=== PATIENT | male | born 1940 | race Caucasian/White ===

== ENCOUNTER 2019-07-12 17:27 | Inpatient (IN) | payer OTHER, MEDICARE ==
[~2019-07-12] VITALS: Ht 175.2 cm; Wt 89.5 kg
[2019-07-12] MEDS ORDERED: NS IV 1000 ML 1,000 ML IV SCH (17:45)
[2019-07-12 17:50] LABS: BASOPHILS # (AUTO) 0.2 10^3/uL (0.0-0.1); BASOPHILS % (AUTO) 2 % (0-10); EOSINOPHILS # (AUTO) 0.2 10^3/uL (0.0-0.3); EOSINOPHILS % (AUTO) 2 % (0-10); HEMATOCRIT 42 % (40-54); HEMOGLOBIN 14.6 G/DL (13.3-17.7); LYMPHOCYTES # (AUTO) 1.6 X 10^3 (1.0-4.0); LYMPHOCYTES % (AUTO) 16 % (12-44); MEAN CORPUSCULAR HEMOGLOBIN 31 PG (25-34); MEAN CORPUSCULAR HGB CONC 34 G/DL (32-36); MEAN CORPUSCULAR VOLUME 91 FL (80-99); MEAN PLATELET VOLUME 9.7 FL (7.4-10.4); MONOCYTES % (AUTO) 10 % (0-12); NEUTROPHILS # (AUTO) 7.2 X 10^3 (1.8-7.8); NEUTROPHILS % (AUTO) 70 % (42-75); PLATELET COUNT 281 10^3/uL (130-400); RED CELL DISTRIBUTION WIDTH 14.5 % (10.0-14.5); WHITE BLOOD COUNT 10.2 10^3/uL (4.3-11.0)
[2019-07-12 18:04] LABS: ALANINE AMINOTRANSFERASE 15 U/L (0-55); ALBUMIN 4.4 GM/DL (3.2-4.5); ALKALINE PHOSPHATASE 90 U/L (40-136); BILIRUBIN,TOTAL 0.4 MG/DL (0.1-1.0); BUN/CREATININE RATIO 27; CALCIUM 9.5 MG/DL (8.5-10.1); CARBON DIOXIDE 24 MMOL/L (21-32); CHLORIDE 107 MMOL/L (98-107); CREATININE SERUM 1.16 MG/DL (0.60-1.30); GFR ESTIMATED > 60; GLUCOSE 110 MG/DL (70-105); POTASSIUM 3.7 MMOL/L (3.6-5.0); SODIUM 142 MMOL/L (135-145); TOTAL PROTEIN 7.4 GM/DL (6.4-8.2)
--- NOTE | 2019-07-12 18:21 | Diagnostic Imaging Report ---
INDICATION: Increasing weakness. TIME OF EXAM: 05:56 p.m. COMPARISON: No prior studies are available for comparison. FINDINGS: Changes of median sternotomy are noted. The heart is mildly enlarged. Lungs are clear. No infiltrate or failure is seen. There is no effusion or pneumothorax. IMPRESSION: No acute cardiopulmonary process is detected. Dictated by: Dictated on workstation # [id number]
--- NOTE | 2019-07-12 18:22 | NUR ---
DAUGHTER AND PATIENT REPORT THAT HE WAS SEEN BY HIS DR ON THURSDAY AND DID NOT ADMIT AT THAT TIME.
--- NOTE | 2019-07-12 18:33 | Diagnostic Imaging Report ---
INDICATION: Pelvic and right hip pain AP view of the pelvis is obtained with coned AP and frog-leg views of the right hip. There are mild degenerative changes in the visualized lower lumbar spine and both hip joints. There is no evidence of an acute fracture or malalignment. No abnormal lytic or sclerotic focus is identified. IMPRESSION: No evidence of acute abnormality. Dictated by: Dictated on workstation # [id number]
--- NOTE | 2019-07-12 18:40 | ED General ---
General Chief Complaint: Neurological Problems Stated Complaint: WEAKNESS Nursing Triage Note: TO ROOM 07 VIA WITH COMPLAINTS OF INCREASED WEAKNESS X3 WEEKS. STATES HE WAS SEEN IN [place] LAST WEEK AND SENT HOME. WAS SEEN BY HOME HEALTH PT TODAY WHO CONTACTED DR REEDER ABOUT POSSIBLE ASSESSMENT IN ER AND ADMISSION. PT STATES HE IS NO LONGER ABLE TO WALK. PT DR'S IN [place]. Nursing Sepsis Screen: No Definite Risk Source of Information: Patient Exam Limitations: No Limitations History of Present Illness Date Seen by Provider: Jul 12, 2019 Time Seen by Provider: 17:45 Initial Comments 78-year-old male who presents to the emergency room with complaints of inc reasing weakness for the past 3 weeks. He reports that he was seen and evaluated at [facility] in [place] a fall onto his right hip and has not been able to walk since the fall. He was seen by a family friend who is a physical therapist and she recommended trying to get him to inpatient rehabilitation at [facility] but Dr. Reeder wanted him to be evaluated in the emergency room and sent him here. The patient reports that he is unable to walk at home and his grandson has been lifting him from bed to wheelchair. He is alert and oriented complains of right hip pain after fall. Denies other injuries. He was unable to transfer from car to wheelchair. Associated Systoms: Weakness Allergies and Home Medications Allergies Coded Allergies: codeine (Verified Adverse Reaction, Severe, VOMITING, 07/12/19) Uncoded Allergies: TAPE (Allergy, Severe, BLISTERS, 07/12/19) Patient Home Medication List Home Medication List Reviewed: Yes Review of Systems Review of Systems Constitutional: see HPI; No chills, No fever Musculoskeletal: see HPI, joint pain (right hip pain) All Other Systems Reviewed Negative Unless Noted: Yes Past Erpqtni-Eophcz-Hawnuh Hx Patient Social History Alcohol Use: Past History Recreational Drug Use: No Smoking Status: Former Smoker Recent Foreign Travel: No Contact w/Someone Who Travel: No Recent Infectious Disease Expo: No Recent Hopitalizations: No Seasonal Allergies Seasonal Allergies: No Past Medical History Appendectomy, CABG, Gallbladder, Orthopedic Respiratory: No Cardiac: Yes (X6 STENTS TOTAL) Heart Attack, Hypertension Genitourinary: No Gastrointestinal: No Musculoskeletal: No Endocrine: Yes (HYPOGLYCEMIA LAST WEEK ) HEENT: No Cancer: No Psychosocial: No Integumentary: No Physical Exam Vital Signs Vital Signs - First Documented 07/12/19 17:28 Temp 36.3 Pulse 78 Resp 16 B/P (MAP) 131/88 (102) Pulse Ox 95 O2 Delivery Room Air Capillary Refill : Less Than 3 Seconds Height, Weight, BMI Height: '" Weight: lbs. oz. kg; 29.00 BMI Method: General Appearance: No Apparent Distress, WD/WN Eyes: Bilateral Eye PERRL, Bilateral Eye EOMI HEENT: PERRL/EOMI, TMs Normal, Normal ENT Inspection, Pharynx Normal Respiratory: Chest Non Tender, Lungs Clear, Normal Breath Sounds, No Accessory Muscle Use, No Respiratory Distress Cardiovascular: Regular Rate, Rhythm, No Edema, No Gallop, No JVD, No Murmur, Normal Peripheral Pulses Extremity: Normal Capillary Refill Neurologic/Psychiatric: Alert, Oriented x3, Normal Mood/Affect, Motor Weakness Skin: Normal Color, Warm/Dry Progress/Results/Core Measures Suspected Sepsis Recent Fever Within 48 Hours: No Infection Criteria Present: None New/Unexplained Altered Menta: No Sepsis Screen: No Definite Risk SIRS Temperature: Pulse: 78 Respiratory Rate: 16 Laboratory Tests 07/12/19 17:38: White Blood Count 10.2 Blood Pressure 131 /88 Mean: 102 Laboratory Tests 07/12/19 17:38: Creatinine 1.16, Platelet Count 281, Total Bilirubin 0.4 Results/Orders Lab Results Laboratory Tests Test 07/12/19 17:38 Range/Units White Blood Count 10.2 4.3-11.0 10^3/uL Red Blood Count 4.66 4.35-5.85 10^6/uL Hemoglobin 14.6 13.3-17.7 G/DL Hematocrit 42 40-54 % Mean Corpuscular Volume 91 80-99 FL Mean Corpuscular Hemoglobin 31 25-34 PG Mean Corpuscular Hemoglobin Concent 34 32-36 G/DL Red Cell Distribution Width 14.5 10.0-14.5 % Platelet Count 281 130-400 10^3/uL Mean Platelet Volume 9.7 7.4-10.4 FL Neutrophils (%) (Auto) 70 42-75 % Lymphocytes (%) (Auto) 16 12-44 % Monocytes (%) (Auto) 10 0-12 % Eosinophils (%) (Auto) 2 0-10 % Basophils (%) (Auto) 2 0-10 % Neutrophils # (Auto) 7.2 1.8-7.8 X 10^3 Lymphocytes # (Auto) 1.6 1.0-4.0 X 10^3 Monocytes # (Auto) 1.0 0.0-1.0 X 10^3 Eosinophils # (Auto) 0.2 0.0-0.3 10^3/uL Basophils # (Auto) 0.2 H 0.0-0.1 10^3/uL Sodium Level 142 135-145 MMOL/L Potassium Level 3.7 3.6-5.0 MMOL/L Chloride Level 107 98-107 MMOL/L Carbon Dioxide Level 24 21-32 MMOL/L Anion Gap 11 5-14 MMOL/L Blood Urea Nitrogen 31 H 7-18 MG/DL Creatinine 1.16 0.60-1.30 MG/DL Estimat Glomerular Filtration Rate > 60 BUN/Creatinine Ratio 27 Glucose Level 110 H 70-105 MG/DL Calcium Level 9.5 8.5-10.1 MG/DL Corrected Calcium 9.2 8.5-10.1 MG/DL Total Bilirubin 0.4 0.1-1.0 MG/DL Aspartate Amino Transf (AST/SGOT) 18 5-34 U/L Alanine Aminotransferase (ALT/SGPT) 15 0-55 U/L Alkaline Phosphatase 90 40-136 U/L Total Protein 7.4 6.4-8.2 GM/DL Albumin 4.4 3.2-4.5 GM/DL My Orders Orders - PETER NICOLE Comprehensive Metabolic Panel (07/12/19 17:43) Ed Iv/Invasive Line Start (07/12/19 17:43) Cbc With Automated Diff (07/12/19 17:43) Chest 1 View, Ap/Pa Only (07/12/19 17:43) Ns Iv 1000 Ml (Sodium Chloride 0.9%) (07/12/19 17:45) Pelvis With Right Hip 2-3views (07/12/19 17:50) Ekg Tracing (07/12/19 17:50) Vital Signs/I&O 07/12/19 07/12/19 07/12/19 17:28 19:53 20:22 Temp 36.3 36.9 36.4 Pulse 78 57 58 Resp 16 18 20 B/P (MAP) 131/88 (102) 129/70 (102) 152/67 Pulse Ox 95 98 98 O2 Delivery Room Air Room Air Room Air Capillary Refill : Less Than 3 Seconds Blood Pressure Mean: 102 Departure Communication (Admissions) Time/Spoke to Admitting Phy: 19:[address] Key and he agrees to accept the patient to his services. Impression Primary Impression: Generalized weakness Disposition: HOME, SELF-CARE Condition: Stable/Unchanged Admissions Decision to Admit Reason: Admit from ER (General) Decision to Admit/Date: Jul 12, 2019 Time/Decision to Admit Time: 19:10 Departure-Patient Inst. Referrals: NARGIS ARIZMENDI DO (PCP/Family) Primary Care Physician PETER NICOLE Jul 12, 2019 18:40
--- NOTE | 2019-07-12 19:55 | NUR ---
ALEXANDREA MANN admitted to room 431-1, with an admitting diagnosis of Generalized Weakness, on 07/12/19 from ER via bed, accompanied by daughter and ED staff.ALEXANDREA MANN introduced to surroundings, call light, bed controls, phone, TV, temperature control, lights, meal times, smoking policy, visitor policy, side rail policy, bathrooms and showers. Patient Rights given to patient in the handbook. ALEXANDREA MANN verbalizes understanding that [facility] is not responsible for the loss or damage to any personal effects or valuables that are kept in the patients posession during their hospitalization.
[2019-07-12 20:12] VITALS: BP 129/70
[2019-07-12 20:22] VITALS: BP 152/67
[2019-07-12] MEDS ORDERED: CATHETER FLUSH 10 ML SYR IV PRN (20:30)
--- NOTE | 2019-07-12 21:30 | NUR ---
Dr. Key notified of pt rating pain at 10:10 and of c/o of not voiding all day (bladder scan showed only 47 mls residual). New order rec for NS at 100 mls/hr & Lortab 5/325 mg po q6hr prn pain.
[2019-07-12] MEDS: NS IV 1000 ML 1,000 ML IV SCH (21:34)
[2019-07-12] MEDS: ACETAMINOPHEN 500 MG TAB (TYLENOL) PO PRN (21:35)
[2019-07-12] MEDS: CATHETER FLUSH 10 ML SYR IV SCH (21:45)
[2019-07-12 23:50] VITALS: BP 132/61
[2019-07-13 01:48] LABS: BILIRUBIN,URINE NEGATIVE (NEGATIVE); CLARITY,URINE CLEAR; COLOR,URINE YELLOW; GLUCOSE, URINE (UA) NEGATIVE (NEGATIVE); KETONES,URINE NEGATIVE (NEGATIVE); LEUKOCYTE ESTERASE ,URINE 1+ (NEGATIVE); NITRITE,URINE NEGATIVE (NEGATIVE); PH,URINE 6 (5-9); PROTEIN,URINE NEGATIVE (NEGATIVE); UROBILINOGEN,URINE NORMAL (NORMAL)
[2019-07-13 01:58] LABS: BACTERIA,URINE FEW /HPF; SQUAMOUS EPITHELIAL CELL,UR RARE /HPF; WBC,URINE 0-2 /HPF
[2019-07-13] MEDS: HYDROcodone/APAP 5 MG/325 MG (LORTAB) TAB PO PRN ×2 (02:08→08:26)
[2019-07-13 04:05] VITALS: BP 144/66
[2019-07-13] MEDS: CATHETER FLUSH 10 ML SYR IV SCH ×3 (06:46→22:17)
[2019-07-13] MEDS: NS IV 1000 ML 1,000 ML IV SCH ×2 (06:52→17:50)
[2019-07-13 08:00] VITALS: BP 141/64
--- NOTE | 2019-07-13 09:07 | NUR ---
Initial visit with pt's family/caregiver, Rakesh. The pt has been living with Rakesh and his . Rakesh said that since the pt's admission to [place], he has become increasingly weak. Rakesh shared that his work until 5-6 pm most days and so the pt has been at home alone. Rakesh shared his concerns while noticing that the pt "gradually became so weak he could not walk." Rakesh expressed relief and appreciation for this hospital stay, and hopes the pt can regain some quality of life. Bus Info Consultant support welcomed.
[2019-07-13] MEDS ORDERED: TOLTA4 PO (10:05)
[2019-07-13] MEDS ORDERED: NAPR-915 PO (10:05)
[2019-07-13] MEDS ORDERED: RANI-613 PO (10:05)
[2019-07-13] MEDS ORDERED: CETI10TA17 PO (10:05)
[2019-07-13] MEDS ORDERED: LOSA1TAB20 PO (10:05)
[2019-07-13] MEDS ORDERED: ACET-2650 PO (10:05)
[2019-07-13] MEDS ORDERED: PANT40TA2 PO (10:05)
[2019-07-13] MEDS ORDERED: DOCU240C24 PO (10:05)
[2019-07-13] MEDS ORDERED: TERA5CAP3 PO (10:05)
[2019-07-13] MEDS ORDERED: ASPI-983 PO (10:05)
[2019-07-13] MEDS ORDERED: MAGN420T PO (10:05)
[2019-07-13] MEDS ORDERED: DONE5TAB30 PO (10:05)
[2019-07-13] MEDS ORDERED: SIME125T PO (10:05)
[2019-07-13] MEDS ORDERED: CLOP75TA69 PO (10:05)
[2019-07-13] MEDS ORDERED: AMLO10TA7 PO (10:05)
[2019-07-13] MEDS ORDERED: HYDR-3812 PO (10:08)
--- NOTE | 2019-07-13 10:13 | NUR ---
PATIENT STATES HE IS UNSURE OF HIS MEDICATIONS. HE FILLS HIS PILL [employer] WITH HIS BOTTLES BUT HE DOES NOT KNOW THEM BY NAME. A FAMILY MEMBER BROUGHT IN A DETAILED LIST AND THE PATIENT STATES IT IS UP TO DATE. I UPDATED THE MED REC WITH THAT LIST AT THIS TIME. I REVIEWED THE OTC MEDICATION WELL THE TOLTERODINE THAT WAS RECENTLY FILLED ACCORDING TO THE EXT MED HX. THE OTHER PRESCRIPTION MEDICATIONS MUST COME FROM THE [place]. I HAVE REQUESTED THOSE RECORDS FROM THE [facility] AND WILL REVIEW THEM ON THE MED REC WHEN IT IS RECEIVED. IN ADDITION TO THE LIST, THE PATIENT FILLED HYDROCODONE 5-325MG #28 1 Q6H PRN 07-11-19 AT [facility]. I CALLED THEM AND VERIFIED IT WAS PICKED UP. I ADDED IT TO THE MED REC AT THIS TIME. [facility] HAS NOT FILLED ANY OTHER PRESCRIPTIONS FOR THE PATIENT. [facility] SHOWS THE 07-11-19 FILL OF HYDROCODONE AT [facility] #5 TABS FILLED AT [facility] 07-01-19. PRIOR TO THAT TRAMADOL 50MG #60 FOR A 15 DAY SUPPLY [facility].
[2019-07-13] MEDS: ACETAMINOPHEN 500 MG TAB (TYLENOL) PO PRN (10:26)
--- NOTE | 2019-07-13 11:24 | Physical Therapy Evaluation ---
PT Evaluation-General Medical Diagnosis Admission Date Jul 12, 2019 at 19:20 Medical Diagnosis: weakness Onset Date: Jul 12, 2019 Therapy Diagnosis Therapy Diagnosis: impaired mobility, strength, endurance, balance Precautions Precautions/Isolations: Standard Precautions Weight Bear Status Right Lower Extremity: Right Weight Bearing/Tolerated Left Lower Extremity: Left Weight Bearing/Tolerated Referral Physician: Yesi Reason for Referral: Evaluation/Treatment Medical History Additional Medical History Past Medical History Appendectomy, CABG, Gallbladder, Orthopedic Respiratory: No Cardiac: Yes (X6 STENTS TOTAL) Heart Attack, Hypertension Genitourinary: No Gastrointestinal: No Musculoskeletal: No Endocrine: Yes (HYPOGLYCEMIA LAST WEEK ) HEENT: No Cancer: No Psychosocial: No Integumentary: No Reviewed History: Yes Social History Home: Single Level Current Living Status: granddaughter Entry Into Home: Stairs With Railing PT Steps Into Home: 2 Prior/Core FIM Prior Level of Function Therapy Code Descriptions/Definitions Functional Boyle Measure: 0=Not Assessed/NA 4=Minimal Assistance 1=Total Assistance 5=Supervision or Setup 2=Maximal Assistance 6=Modified Boyle 3=Moderate Assistance 7=Complete Boyle Therapy Quality Codes: 6 Independent with activity with or without an assistive device 5 Patient requires set up or clean up by helper. Patient completes activity by themselves 4 Supervision or touching assist (CGA). Ethel provide cues , steadying aldo t 3 The helper provides less than half the effort to complete the activity 2 The helper provides more than half the effort to complete the activity 1 Dependent. The helper does all the effort to complete an activity 7 Patient refused to complete or attempt activity 9 The patient did not perform the activity before the current illness or injury 88 Not attempted due to Medical conditions or safety concerns Functional Abilities and Goals: Independent: Patient completed the activities by him/herself, with or without an assistive device, with no assistance from a helper. Needed Some Help: Patient needed partial assistance from another person to complete activities. Dependent: A helper completed the activities for the patient. Unknown: Not Applicable: Patient states he has not been able to stand and ambulate for several weeks but before that he was ambulating with a 4-wheeled walker. PT Evaluation-Current Subjective Patient in bed pre tx, agrees to PT, has 10/10 pain in both legs, worse in the right leg. Pt/Family Goals "to get stronger" Objective Patient Orientation: Person, Confused, Place, Situation ROM/Strength ROM Lower Extremities WNL Strength Lower Extremities 2/5 gross bilateral lower extremities Sensory Vision: Functional Hearing: Functional Sensation Right Lower Extremit: Impaired Sensation Left Lower Extremity: Impaired Sensation Lower Extremities Patient has intact light touch sensation bilaterally but states it is decreased Transfers Therapy Code Descriptions/Definitions Functional Boyle Measure: 0=Not Assessed/NA 4=Minimal Assistance 1=Total Assistance 5=Supervision or Setup 2=Maximal Assistance 6=Modified Boyle 3=Moderate Assistance 7=Complete Boyle Transfers (B, C, W/C) (FIM): 2 Scootin Rollin Supine to/from Sit: 2 Sit to/from Stand: 2 Sit to stand and transfer with hard max assist, he can assist with his arms. Patient performed a stand pivot transfer to recliner. Needs assist with both legs and upper body during supine to sit. Balance Sitting Static: Fair Sitting Dynamic: Fair Standing Static: Poor Standing Dynamic: Poor Treatment BLE seated exercises x15 (AP, LAQ) Assessment/Needs Patient has impaired mobility, strength, endurance, balance. Patient in recliner post tx with nurse call, phone, tray, all needs met, instructed patient to use nurse call when he needs to get back to bed and he says he will and that there is no way he will try to get back to bed by himself because he knows he can't. Rehab Potential: Fair PT Short Term Goals Short Term Goals Time Frame: Jul 20, 2019 Transfers (B,C,W/C) (FIM): 4 Gait (FIM): 1 Gait Distance Comment: 10' Gait Level of Assist: 4 Gait Assistive Device: FWW PT Plan Problem List Problem List: Activity Tolerance, Functional Strength, Safety, Balance, Gait, Transfer, Bed Mobility Treatment/Plan Treatment Plan: Continue Plan of Care Treatment Plan: Bed Mobility, Concurrent Therapy, Education, Functional Activity Jesus Alberto, Functional Strength, Gait, Safety, Therapeutic Exercise, T ransferritu Treatment Duration: Jul 20, 2019 Frequency: 6 times per week Estimated Hrs Per Day: .25 hour per day Patient and/or Family Agrees t: Yes Safety Risks/Education Patient Education: Transfer Techniques, Correct Positioning, Safety Issues Teaching Recipient: Patient Teaching Methods: Demonstration, Discussion Response to Teaching: Reinforcement Needed Discharge Recommendations Plan Patient will perform bed mobility and transfer training, balance and endurance training, functional strengthening, gait training, and education, to improve f unctional mobility and independence at home. Therapy Discharge Recommendati: Other, See Comments (rehab) Time/GCodes Time In: 1056 Time Out: 1115 Total Billed Treatment Time: 19 Total Billed Treatment 1 visit MABLE Manley' ALANA CISNEROS PT Jul 13, 2019 11:24
[2019-07-13 12:00] VITALS: BP 146/67
[2019-07-13] MEDS ORDERED: GADOBUTROL 10 MMOL/10 ML (GADAVIST) VIAL IV ONE (14:00)
[2019-07-13] MEDS ORDERED: DONE10TA41 PO (14:33)
[2019-07-13] MEDS ORDERED: CRV25T PO (14:43)
--- NOTE | 2019-07-13 14:45 | NUR ---
[facility] AT [facility] NOT F[facility] THE LOSARTAN HCTZ SINCE 06-03-19 #30. ADDITIONALLY THEY DID FILL COREG 25MG BID 06-22-19 HOWEVER IT IS NOT ON THE PATIENTS MEDICATION LIST. I CALLED AND SPOKE WITH THE PATIENTS DAUGHTER, SHE STATES HE IS IN CHARGE OF HIS MEDICATIONS AND SHE IS UNSURE WHAT HE IS TAKING. SHE STATES THE LIST THAT WAS BROUGHT IN WAS MADE BY THE PATIENT HIMSELF. I LEFT THE LOSARTAN HCTZ ON THE LIST AND NOTED THE PAST DUE FILL DATE. I ALSO ADDED THE COREG TO THE MED REC AT THIS TIME. ALSO LIST[facility] LIST IS CARBAMAZEPINE 200MG BID THAT PATIENT REQUESTS TO GET FROM AN [place] [facility]. ACCORDING TO THE EXT MED HX IT WAS LAST FILLED #60 03-22-19. IT IS PAST DUE AND ALSO NOT ON THE PATIENTS MEDICATION LIST SO I DID NOT INCLUDE IT ON THE MED REC AT THIS TIME. SEE CHART FOR PATIENTS MED LIST WELL THE LIST FROM [facility].
--- NOTE | 2019-07-13 14:47 | Occ Therapy Progress Note ---
Therapy Progress Note Pt chart reviewed and evaluation attempted at 1325, pt's nurse states pt was taken for MRI. 2nd attempt at 14:37. OT will attempt evaluation in the am. GAYLE NOEL OTR Jul 13, 2019 14:47
--- NOTE | 2019-07-13 14:50 | Diagnostic Imaging Report ---
INDICATION: Increasing weakness. EXAMINATION: Pre-and post intravenous contrast multiplanar and multisequence imaging of the thoracic spine was performed. COMPARISON: No prior studies are available for comparison. FINDINGS: There is normal thoracic kyphotic curvature. The vertebral body heights and marrow signal are normal. No geographic marrow lesion is seen. No acute compression fracture is identified. There is degenerative disc disease throughout the thoracic spine with variable disc space narrowing and desiccation. The thoracic spinal cord demonstrates normal homogeneous signal intensity and normal morphology. The central canal appears to be patent. No focal disc protrusion is identified. No significant neural foraminal stenosis is identified. No abnormal enhancement following contrast administration is seen. The paraspinous tissues are unremarkable. IMPRESSION: Generalized thoracic spondylosis. No acute compression fracture, geographic marrow lesion or central canal stenosis is identified. No abnormal enhancement is seen. Dictated by: Dictated on workstation # [id number]
--- NOTE | 2019-07-13 14:57 | Diagnostic Imaging Report ---
PROCEDURE: MRI lumbar spine with and without contrast. TECHNIQUE: Multiplanar, multisequence MRI of the lumbar spine was performed with and without contrast. INDICATION: Increasing weakness for three weeks. COMPARISON: No prior studies are available for comparison. FINDINGS: Curvature of the lumbar spine is normal. There is minimal retrolisthesis of L2 on L3. Vertebral body heights are maintained. No acute compression fracture or geographic marrow lesion is identified. Generalized disc desiccation is seen at all levels. There is also moderate disc space narrowing at T12-L1, L1-L2, and L2-L3 levels compatible with degenerative disc disease. The conus is unremarkable at the T12-L1 level. T12-L1: Central canal is patent. Endplate osteophytes indent the ventral thecal sac. No significant neural foraminal stenosis is identified. L1-L2: Disc/osteophyte complex indents the ventral thecal sac, but central canal is widely patent. There is narrowing of the lateral recesses bilaterally. Mild bilateral neural foraminal stenosis is seen. L2-L3: There is an extradural mass to the right of the thecal sac measuring approximately 2 cm cephalocaudal, posterior to the L2-L3 disc space and L2 vertebral body. This is approximately 1.5 cm transverse x 0.9 cm AP. This produces significant mass effect on the thecal sac, significantly narrowing the canal at this level. This is homogeneously low signal intensity on T2-weighted images and intermediate signal on T1-weighted images. This does show some mild peripheral enhancement on postcontrast images and is most suggestive of a large extruded disc fragment. This significantly narrows the right lateral recess and also produces [id number] narrowing of the right neural foramen. Left neural foramen is widely patent. L3-L4: Ligamentous thickening and facet changes are noted. Central canal remains patent. There is mild bilateral neural foraminal narrowing present. L4-L5: Facet changes with ligamentous thickening are seen with broad-based disc/osteophyte complex flattening the ventral thecal sac. Central canal is widely patent. There is moderate bilateral lateral recess stenosis as well as moderate bilateral neural foraminal stenosis. L5-S1: Hypertrophic facet changes are noted. Central canal is widely patent. There is moderate bilateral neural foraminal narrowing. Paraspinous tissues demonstrate probable bilateral renal sinus cysts. IMPRESSION: 1. Multilevel lumbar spondylosis with multilevel lateral recess and neural foraminal stenosis. There is a mass at the level of L2-L3 producing significant mass effect on the thecal sac. This appears to be extradural and most consistent with a large extruded disc fragment, occupying the right lateral recess and right aspect of the central canal. This does produce significant central canal stenosis as well as right lateral recess stenosis and mild neural foraminal stenosis. Dictated by: Dictated on workstation # [id number]
[2019-07-13] MEDS: oxyCODONE/APAP 5/325MG (PERCOCET 5) TABLET PO PRN ×2 (16:17→21:06)
[2019-07-13 16:40] VITALS: BP 145/69
--- NOTE | 2019-07-13 17:34 | History & Physical-Hospitalist ---
History of Present Illness HPI/Chief Complaint Fredo Miller is a 78-year-old male with past medical history of hypertension and coronary artery disease who presented with weakness. He reports that he has had to use a walker for the past 6 months. He reports that over the past month he has had worsening weakness in his bilateral lower extremities. He also reports weakness in his bilateral hands and has been dropping things. He denies any bowel or bladder incontinence. He denies any numbness and tingling. He denies any fevers or chills. He denies any chest pain or shortness of breath. He denies any abdominal pain. He does say that he has been feeling nauseous. He denies any diarrhea or constipation. He denies any dysuria. Source: patient Exam Limitations: no limitations Date Seen 07/13/19 Time Seen by a Provider: 10:45 Attending Physician [place] MD PCP Noble Danielson DO Referring Physician Date of Admission Jul 12, 2019 at 19:20 Home Medications & Allergies Home Medications Reviewed patient Home Medication Reconciliation performed by pharmacy medication reconciliations ip/mosaic technician and/or nursing. Patients Allergies have been reviewed. Allergies Allergies Coded Allergies codeine (Verified Adverse Reaction, Severe, VOMITING, 07/12/19) Uncoded Allergies TAPE ( Allergy, Severe, BLISTERS, 07/12/19) Past Isinajj-Pzbqlk-Krmqyo Hx Past Med/Social Hx: Reviewed Nursing Past Med/Soc Hx Patient Social History Alcohol Use: Past History Recreational Drug Use: No Smoking Status: Former Smoker Recent Foreign Travel: No Contact w/other who traveled: No Recent Hopitalizations: No Recent Infectious Disease Expo: No Seasonal Allergies Seasonal Allergies: No Past Medical History Surgeries: Appendectomy, CABG, Gallbladder, Orthopedic Cardiac: Heart Attack, Hypertension Family History Patient reports no known family medical history. Review of Systems Constitutional: weakness EENTM: no symptoms reported Respiratory: no symptoms reported Cardiovascular: no symptoms reported Gastrointestinal: no symptoms reported Genitourinary: no symptoms reported Musculoskeletal: back pain, muscle weakness, neck pain Skin: no symptoms reported Psychiatric/Neurological: No Symptoms Reported Physical Exam Physical Exam Vital Signs Vital Signs - First Documented 07/12/19 17:28 Temp 36.3 Pulse 78 Resp 16 B/P (MAP) 131/88 (102) Pulse Ox 95 O2 Delivery Room Air Capillary Refill : Less Than 3 Seconds Height, Weight, BMI Height: '" Weight: lbs. oz. kg; 29.48 BMI Method: General Appearance: No Apparent Distress, WD/WN HEENT: PERRL/EOMI, Pharynx Normal Neck: Normal Inspection, Supple Respiratory: Lungs Clear, Normal Breath Sounds, No Respiratory Distress Cardiovascular: Regular Rate, Rhythm, No Edema, No Murmur Gastrointestinal: Normal Bowel Sounds, Non Tender, Soft Back: Normal Inspection Extremity: Normal Inspection, Pedal Edema Neurologic/Psychiatric: Oriented x3, Motor Weakness, Other (Strength 4 out of 5 bilateral upper extremities, strength 3 out of 5 bilateral lower extremities) Skin: Normal Color, Warm/Dry Lymphatic: No Adenopathy Results Results/Procedures Labs Laboratory Tests 07/12/19 17:38 Patient resulted labs reviewed. Imaging: Reviewed Imaging Report Assessment/Plan Admission Diagnosis Weakness Admission Status: Observation Reason for Inpatient Admission: Bilateral lower extremity weakness Assessment and Plan Bilateral lower extremity weakness Bilateral hand weakness Progressively worsening over months Multiple ER visits without determination of cause Initial workup on arrival unrevealing Plan for MRI cervical, thoracic, and lumbar spine today If source of weakness unrevealing, will plan for inpatient rehabilitation Hypertension Stable, continue home meds Coronary artery disease Holding aspirin and Plavix Diagnosis/Problems Diagnosis/Problems (1) Generalized weakness Status: Acute Clinical Quality Measures DVT/VTE Risk/Contraindication: Risk Factor Score Per Nursin RFS Level Per Nursing on Admit: 4+=Very High FRANK DING MD Jul 13, 2019 17:34
[2019-07-13 20:10] VITALS: BP 123/64
[2019-07-13] MEDS: DONEPEZIL 10 MG (ARICEPT) TAB PO SCH (21:06)
[2019-07-13] MEDS: DOCUSATE CALCIUM 240 MG (SURFAK) CAP PO SCH (21:06)
[2019-07-13] MEDS: amLODIPine 10 MG (NORVASC) TAB PO SCH (21:06)
[2019-07-13] MEDS: CARVEDILOL 12.5 MG (COREG) TABLET PO SCH (21:06)
[2019-07-13] MEDS: TERAZOSIN 5 MG (HYTRIN) CAPSULE PO SCH (21:07)
[2019-07-14] VITALS (7 sets, daily range): BP systolic 129–185; BP diastolic 60–84
[2019-07-14] MEDS: NS IV 1000 ML 1,000 ML IV SCH ×2 (03:07→15:19)
[2019-07-14] MEDS: oxyCODONE/APAP 5/325MG (PERCOCET 5) TABLET PO PRN ×5 (03:08→23:28)
[2019-07-14] MEDS: CATHETER FLUSH 10 ML SYR IV SCH ×3 (06:09→20:59)
[2019-07-14] MEDS: TOLTERODINE LA 4 MG (DETROL) CAP PO SCH (08:25)
[2019-07-14] MEDS: DOCUSATE CALCIUM 240 MG (SURFAK) CAP PO SCH ×2 (08:26→19:56)
[2019-07-14] MEDS: LORATADINE (CLARITIN) 10 MG TAB PO SCH (08:26)
[2019-07-14] MEDS: PANTOPRAZOLE 40 MG (PROTONIX) TAB PO SCH (08:26)
[2019-07-14] MEDS: LOSARTAN 50 MG (COZAAR) TAB PO SCH (08:26)
[2019-07-14 08:34] LABS: BUN/CREATININE RATIO 20; CALCIUM 8.5 MG/DL (8.5-10.1); CARBON DIOXIDE 23 MMOL/L (21-32); CHLORIDE 111 MMOL/L (98-107); CREATININE SERUM 0.82 MG/DL (0.60-1.30); GFR ESTIMATED > 60; GLUCOSE 88 MG/DL (70-105); POTASSIUM 3.6 MMOL/L (3.6-5.0); SODIUM 142 MMOL/L (135-145)
[2019-07-14] MEDS ORDERED: ASPIRIN E.C. 81 MG (ECOTRIN) TAB PO NR (10:15)
[2019-07-14] MEDS ORDERED: CLOPIDOGREL 75 MG (PLAVIX) TABLET PO NR (10:15)
[2019-07-14] MEDS ORDERED: GADOBUTROL 10 MMOL/10 ML (GADAVIST) VIAL IV ONE (10:30)
--- NOTE | 2019-07-14 10:40 | Physical Therapy Daily Note ---
PT Daily Note-Current Subjective Patient c/o right hip pain 10/10 with any movement. Agrees to PT. Pain Numeric Pain Scale: 10-Worst Possible Pain Location: Right Location Body Site: Hip Pain Description: Acute Mental Status Patient Orientation: Normal For Age Attachments: IV Transfers Therapy Code Descriptions/Definitions Functional [place] Measure: 0=Not Assessed/NA 4=Minimal Assistance 1=Total Assistance 5=Supervision or Setup 2=Maximal Assistance 6=Modified [place] 3=Moderate Assistance 7=Complete [place] Therapy Quality Codes: 6 Independent with activity with or without an assistive device 5 Patient requires set up or clean up by helper. Patient completes activity by themselves 4 Supervision or touching assist (CGA). [place] provide cues , steadying assist 3 The helper provides less than half the effort to complete the activity 2 The helper provides more than half the effort to complete the activity 1 Dependent. The helper does all the effort to complete an activity 7 Patient refused to complete or attempt activity 9 The patient did not perform the activity before the current illness or injury 88 Not attempted due to Medical conditions or safety concerns Transfers (B, C, W/C) (FIM): 1 Scootin Rollin Supine to/from Sit: 1 dependent assist x 2 with inability to perform sit to stand due to severe weakness Weight Bearing Right Lower Extremity: Right Weight Bearing/Tolerated Left Lower Extremity: Left Weight Bearing/Tolerated Exercises Supine Ex: Ankle pumps, Heel Slides, Straight leg raise, Hip abd/add Supine Reps: 10 (PROM right LE/AAROM left LE) Seated Therapy Exercises: Ankle pumps, Long arc quads Seated Reps: 15 (PROM right LE/AAROM left LE) Assessment Patient also demonstrates Fair- core control with trunk rotation exercises. Patient has increase c/o right hip patient with all mobility/exercises PT Short Term Goals Short Term Goals Time Frame: Jul 20, 2019 Transfers (B,C,W/C) (FIM): 4 Gait (FIM): 1 Gait Distance Comment: 10' Gait Level of Assist: 4 Gait Assistive Device: FWW PT Plan Treatment/Plan Treatment Plan: Continue Plan of Care Treatment Plan: Bed Mobility, Concurrent Therapy, Education, Functional Activity Jesus Alberto, Functional Strength, Gait, Safety, Therapeutic Exercise, Transfers Treatment Duration: Jul 20, 2019 Frequency: 6 times per week Estimated Hrs Per Day: .25 hour per day Patient and/or Family Agrees t: Yes Time/GCodes Time In: 910 Time Out: 926 Total Billed Treatment Time: 16 Total Billed Treatment 1 visit EX 16 min JOSE CORADO PT Jul 14, 2019 10:40
[2019-07-14] MEDS ORDERED: HYDROmorphone 2 MG/ML VIAL (DILAUDID) ONE (11:13)
--- NOTE | 2019-07-14 11:21 | Diagnostic Imaging Report ---
CLINICAL INDICATION: Patient complains of increased weakness x3 weeks. Patient recently went to ER last week and was sent home. Patient is no longer able to walk and has bilateral arm weakness. Patient has history previous cervical spine surgery a few years ago. EXAM: MRI of the cervical spine performed without and with 20 cc of Gadavist IV gadolinium. Sequences include sagittal T2, sagittal T1, axial T2, axial T1, sagittal T1 fat-sat post IV contrast, and axial T1 fat sat post IV contrast. COMPARISON: None. FINDINGS: There is motion artifact which limits evaluation of anatomical structures. There is no abnormal IV contrast enhancement. There is C5-C6 anterior cervical disc fusion hardware noted. There is multilevel cervical spine degenerative disease with vertebral body spurs and facet arthropathy. Limited visualization of the posterior fossa and cervical spinal cord shows no significant abnormality. There is no significant paraspinal soft tissue abnormality. There is a 1.6 cm high T2 signal nodule in the right thyroid gland. C1-C2: There are degenerative spurs involving the atlantoodontoid interval anteriorly. There is no significant central canal narrowing. C2-C3: There is no significant posterior disc bulge. There is mild ligamentum flavum buckling. There is no significant central canal narrowing. There is mild right neural foramen narrowing. There is mild to moderate right neural foramen narrowing and no significant left neural foramen narrowing. C3-C4: There is diffuse disc bulge with broad posterior disc osteophyte complex and bilateral uncinate spurs. There is mild to moderate bilateral facet arthropathy. There is severe left neural foramen narrowing and severe right neural foramen narrowing. There is moderate central canal stenosis. C4-C5: There is diffuse disc bulge with moderate loss of intervertebral disc height and grade I retrolisthesis of C4 on C5. There are hypertrophic posterior disc spurs and bilateral uncinate spurs. There is ligamentum flavum buckling and severe bilateral neural foramen narrowing. There is severe central canal stenosis. C5-C6: There is a small right paracentral bony prominence. There is associated mild compression upon the thecal sac anteriorly. There are bilateral uncinate spurs. There is mild to moderate bilateral facet arthropathy. There is a least moderate bilateral neural foramen narrowing. C6-C7: There is diffuse disc bulge with mild loss of the intervertebral disc height. There are bilateral uncinate spurs. There is mild bilateral facet arthropathy. There is mild central canal narrowing. There is severe left neural foramen narrowing and at least moderate right neural foramen narrowing. C7-T1: There is mild bilateral facet arthropathy. There is no significant central spinal canal or neural foramen narrowing. IMPRESSION: 1: There is no acute cervical spine fracture. There is no abnormal IV contrast enhancement. 2: There are postop changes to the cervical spine with C5-C6 anterior cervical disc fusion. There is solid intervertebral bony bridging/fusion. 3: There is multilevel cervical spine degenerative disease which is worse at the C3-C4 and C4-C5 and C6-C7 levels, as described above. 4: There is severe C4-C5 central canal stenosis and moderate C3-C4 central canal stenosis due to posterior disc osteophyte complexes. 5: There is moderate to severe multilevel neural foramen narrowing. Dictated by: Dictated on workstation # [id number]
[2019-07-14] MEDS ORDERED: HYDROmorphone 2 MG/ML VIAL (DILAUDID) IV NR (11:30)
[2019-07-14] MEDS: CARVEDILOL 12.5 MG (COREG) TABLET PO SCH (12:24)
[2019-07-14] MEDS ORDERED: NITROGLYCERIN 0.4 MG SL TABS BTL 25'S SL PRN (13:30)
--- NOTE | 2019-07-14 14:14 | NUR ---
IRF Evaluation Order received to evaluate patient for the ARU. Based on PT evaluation it appears patient would not be able to tolerate intensive therapies, at this time; however, this newspaper writer will continue to follow for ongoing assessment. Thank you for this referral.
--- NOTE | 2019-07-14 14:42 | Occupational Therapy Eval ---
OT Evaluation-General/PLF Medical Diagnosis Admission Date Jul 12, 2019 at 19:20 Medical Diagnosis: weakness Onset Date: Jul 12, 2019 Therapy Diagnosis Therapy Diagnosis: decreased functional mobility and ADL function Precautions Precautions/Isolations: Standard Precautions Safety Interventions: Reorient-PRN Weight Bear Status Weight Bearing Restriction: Weight Bearing/Tolerated Location Restriction: [place]ZAR[place] FEET Referral Physician: Yesi Referral Reason: Activity Tolerance, Self Care, Evaluation/Treatment, Strengthening/ROM Medical History Additional Medical History PMHx: CABG, Heart attack, HTN Current History Pt s a 78-year-old male with past medical history of hypertension and coronary artery disease who presented with weakness. He reports that he has had to use a walker for the past 6 months. He reports that over the past month he has had worsening weakness in his bilateral lower extremities. He also reports weakness in his bilateral hands and has been dropping things. He denies any bowel or bladder incontinence. He denies any numbness and tingling. He denies any fevers or chills. He denies any chest pain or shortness of breath. He denies any abdominal pain. He does say that he has been feeling nauseous. He denies any diarrhea or constipation. He denies any dysuria. Reviewed History: Yes Social History Home: Single Level Current Living Status: granddaughter + granddaughter's spouse Entry Into Home: Stairs With Railing Steps Into Home: 2 Steps Inside Home: 0 Pt fell at [facility] ~2 weeks ago. Pt then was not able to walk and moved in with granddaughter. Pt states he may return to granddaughter's home or his own home, but hopes to walk better if going to his residence. ADL-Prior Level of Function Therapy Code Descriptions/Definitions Functional [place] Measure: 0=Not Assessed/NA 4=Minimal Assistance 1=Total Assistance 5=Supervision or Setup 2=Maximal Assistance 6=Modified [place] 3=Moderate Assistance 7=Complete [place] Therapy Quality Codes: 6 Independent with activity with or without an assistive device 5 Patient requires set up or clean up by helper. Patient completes activity by themselves 4 Supervision or touching assist (CGA). [place] provide cues , steadying assist 3 The helper provides less than half the effort to complete the activity 2 The helper provides more than half the effort to complete the activity 1 Dependent. The helper does all the effort to complete an activity 7 Patient refused to complete or attempt activity 9 The patient did not perform the activity before the current illness or injury 88 Not attempted due to Medical conditions or safety concerns Functional Abilities and Goals: Independent: Patient completed the activities by him/herself, with or without an assistive device, with no assistance from a helper. Needed Some Help: Patient needed partial assistance from another person to complete activities. Dependent: A helper completed the activities for the patient. Unknown: Not Applicable: Self Care: Independent Functional Cognition: Independent DME/Equipment: Bath Chair DME/Equipment Comments Pt states he used FWW or cane prior to fall. Pt then moved in with grand daughter, portable ramp was placed but ramp is "too steep/ unsafe." Pt states granddaughter's home has walk in shower with shower chair, no grab bars and low toilet with "no way to fit a w/c beside." Occupation: retired Drive Self: No OT Current Status Subjective Pt alert and Ox4, daughter present in room. Pt agreeable to OT eval/ treat. Pt states 10/10 pain in R hip. Mental Status/Objective Patient Orientation: Person, Place, Time, Situation, Normal For Age Attachments: IV, Telemetry, Other-See Comments (BP cuff) Current Glasses/Contacts: Yes Hearing Aids: No Hand Dominance: Right Upper Extremity ROM WFL BUE limited forward flexion to 90*, pt able to reach top of head with BUE Upper Extremity Coordination WFL Upper Extremity Sensation Noted paresthesia at times, none currently Upper Extremity Strength 4-/5 BUE ADL-Treatment Therapy Code Descriptions/Definitions Functional [place] Measure: 0=Not Assessed/NA 4=Minimal Assistance 1=Total Assistance 5=Supervision or Setup 2=Maximal Assistance 6=Modified [place] 3=Moderate Assistance 7=Complete [place] Therapy Quality Codes: 6 Independent with activity with or without an assistive device 5 Patient requires set up or clean up by helper. Patient completes activity by themselves 4 Supervision or touching assist (CGA). [place] provide cues , steadying assist 3 The helper provides less than half the effort to complete the activity 2 The helper provides more than half the effort to complete the activity 1 Dependent. The helper does all the effort to complete an activity 7 Patient refused to complete or attempt activity 9 The patient did not perform the activity before the current illness or injury 88 Not attempted due to Medical conditions or safety concerns Grooming (FIM): 5 (Pt completes with s/u) Lower Body Dressing (FIM): 1 (pt dependent in LB dressing tasks) Other Treatments Pt seen in room. Pt and daughter complete pt history. Pt states he fell at [facility], got up, and fell once more at [facility]. Since the fall, pt has not been ambulatory. Pt states he moved in with granddaughter afterwards for assist and felt week. Pt's HOB elevated to ~45* from ~20*. Pt c/o pain through back/ LE and lowered HOB back down. Pt states he has a compressed spinal nerve which causes sharp pain. Pt completes evaluation in bed. Pt educated on vitals monitor and 02 readings, 02 at 84% for ~30 seconds. Pt educated in pursed lip breathing, completing with competence. Pt states he is unable to put weight through BLE and any movement hurts. Pt able to bring arms WFL, touches face and hair. Pt demonstrates 4-/5 strength in BUE. Pt educated on HEP and given red theraband modified with hand loops due to decreased strength. Pt states no questions for OT. Pt left in bed, call light in reach, all needs met, daughter present through session and end of session. Education OT Patient Education: Correct positioning, Energy conservation, Exercise program, Home exercise program, Modified ADL techniques, Progress toward Goal/Update tx plan, Purpose of tx/functional activities, Rehab process, Safety issues Teaching Recipient: Patient Teaching Methods: Demonstration, Discussion Response to Teaching: Verbalize Understanding, Return Demonstration OT Short Term Goals Short Term Goals Grooming(FIM): 6 Lower Body Dressing(FIM): 2 Toileting(FIM): 3 Transfers (B,C,W/C) (FIM): 3 1=Demonstrate adherence to instructed precautions during ADL tasks. 2=Patient will verbalize/demonstrate understanding of assistive devices/modifications for ADL. 3=Patient will improve strength/tolerance for activity to enable patient to perform ADL's. OT Station Agent Goals Usp Goals Eating (FIM): 7 Grooming(FIM): 6 Bathing(FIM): 3 Upper Body Dressing(FIM): 4 Lower Body Dressing(FIM): 3 Toileting(FIM): 4 Transfers (B,C,W/C) (FIM): 4 Toilet/Commode Transfer(FIM): 4 Tub Transfer(FIM): 4 Shower Transfer(FIM): 4 Additional Goals: 1-Demonstrate ADL Tasks, 2-Verbalize Understanding, 3- ImproveStrength/Jesus Alberto 1=Demonstrate adherence to instructed precautions during ADL tasks. 2=Patient will verbalize/demonstrate understanding of assistive devices/modifications for ADL. 3=Patient will improve strength/tolerance for activity to enable patient to perform ADL's. OT Education/Plan Problem List/Assessment Assessment: Decreased Activ Tolerance, Decreased Safety Aware, Decreased UE Strength, Dependent Transfers, Impaired Bed Mobility, Impaired Coordination, Impaired Funct Balance, Impaired I ADL's, Impaired Self-Care Skills, Restricted Funct UE ROM Discharge Recommendations Plan/Recommendations: Continue POC Treatment Plan/Plan of Care Treatment,Training & Education: Yes Patient would benefit from OT for education, treatment and training to promote independence in ADL's, mobility, safety and/or upper extremity function for ADL' s. Plan of Care: ADL Retraining, Caregiver Training, Functional Mobility, UE Funct Exercise/Act Frequency: 5 times per week Estimated Hrs Per Day: .25 hour per day Agreement: Yes Rehab Potential: Fair Time/GCodes Start Time: 13:56 Stop Time: 14:20 Total Time Billed (hr/min): 24 Billed Treatment Time 1 EVH (14), EX (10) GAYLE NOEL OTR Jul 14, 2019 14:42
--- NOTE | 2019-07-14 15:34 | Progress Note - Hospitalist ---
Subjective HPI/CC On Admission Date Seen by Provider: Jul 14, 2019 Time Seen by Provider: 10:45 weakness Subjective/Events-last exam He has ongoing weakness. He also has pain in his right hip. He denies any fev ers, chills, chest pain, shortness of breath, abdominal pain, nausea, vomiting, diarrhea, dysuria. Objective Exam Vital Signs Vital Signs Date Time Temp Pulse Resp B/P (MAP) Pulse Ox O2 Delivery O2 Flow Rate FiO2 07/14/19 13:44 65 07/14/19 12:00 36.7 20 185/84 (117) 99 Room Air Capillary Refill : Less Than 3 Seconds General Appearance: No Apparent Distress, WD/WN HEENT: PERRL/EOMI, Pharynx Normal Neck: Normal Inspection, Supple Respiratory: Lungs Clear, Normal Breath Sounds, No Respiratory Distress Cardiovascular: Regular Rate, Rhythm, No Edema, No Murmur Gastrointestinal: Normal Bowel Sounds, Non Tender, Soft Extremity: Normal Inspection, Non Tender, No Pedal Edema Neurologic/Psychiatric: Alert, Oriented x3, Motor Weakness; No Sensory Deficit; Other (Strength 4 out of 5 bilateral upper extremities, 3 out of 5 left lower extremity, 2 out of 5 right lower extremity) Skin: Normal Color, Warm/Dry Results/Procedures Lab Laboratory Tests 07/14/19 07:55 Patient resulted labs reviewed. Imaging: Reviewed Imaging Report Radiology MRI CERVICAL SPINE IMPRESSION: 1: There is no acute cervical spine fracture. There is no abnormal IV contrast enhancement. 2: There are postop changes to the cervical spine with C5-C6 anterior cervical disc fusion. There is solid intervertebral bony bridging/fusion. 3: There is multilevel cervical spine degenerative disease which is worse at the C3-C4 and C4-C5 and C6-C7 levels, as described above. 4: There is severe C4-C5 central canal stenosis and moderate C3-C4 central canal stenosis due to posterior disc osteophyte complexes. 5: There is moderate to severe multilevel neural foramen narrowing. MRI LUMBAR SPINE IMPRESSION: 1. Multilevel lumbar spondylosis with multilevel lateral recess and neural foraminal stenosis. There is a mass at the level of L2-L3 producing significant mass effect on the thecal sac. This appears to be extradural and most consistent with a large extruded disc fragment, occupying the right lateral recess and right aspect of the central canal. This does produce significant central canal stenosis as well as right lateral recess stenosis and mild neural foraminal stenosis. Assessment/Plan Assessment and Plan Assess & Plan/Chief Complaint Cervical spinal stenosis Slipped intravertebral disc Lumbar spinal stenosis -MRI cervical, thoracic, lumbar spine revealed multilevel stenosis and slipped intervertebral discs -Ortho consulted, recommended holding Plavix for one week prior to any procedure -Due to recent coronary stent placement, Plavix is not recommended to be held at this time -Cardiology consulted, recommended continuous dual antiplatelet therapy be continued for at least 3 months, but risk/benefit analysis be performed by surgery -Discussed with Ortho and Dr. Bhatt recommended undergoing rehab and deferring surgery to a later date at which time it could be performed with lower cardiac risk -Monitor for signs of cauda equina syndrome and if developing worsening symptoms surgery would be performed more urgently/emergently -PT/OT/IRF consults placed Coronary artery disease -Continuing aspirin and Plavix HTN -Stable, continue home meds Diagnosis/Problems Diagnosis/Problems (1) Generalized weakness Status: Acute (2) Cervical spinal stenosis Status: Acute (3) Lumbar spinal stenosis Status: Acute (4) Slipped intervertebral disc Status: Acute (5) Neuroforaminal stenosis of spine Status: Acute Clinical Quality Measures DVT/VTE Risk/Contraindication: Risk Factor Score Per Nursin RFS Level Per Nursing on Admit: 4+=Very High FRANK DING MD Jul 14, 2019 15:34
--- NOTE | 2019-07-14 16:02 | Consultation-Cardiology ---
HPI-Cardiology Cardiology Consultation Date of Consultation 07/14/19 Date of Admission Time Seen by Provider: 15:58 Indication: chest pain, coronary artery disease HPI 78 years old gentleman with history of coronary artery disease, multiple intervention the past, hypertension hyperlipidemia. Admitted with worsening weakness in his lower extremities, has been having weakness in his hands dropping things. MRI of the spine showed herniated disc. I was called for preoperative cardiac evaluation, patient had a recent intervention less than a month ago with drug-eluting stent to the vein graft to the diagonal artery with extensive coronary artery disease. Had an episode of chest pain this morning. Responded to nitroglycerin, currently chest pain-free Home Medications & Allergies Allergies: Coded Allergies: codeine (Verified Adverse Reaction, Severe, VOMITING, 07/12/19) Uncoded Allergies: TAPE (Allergy, Severe, BLISTERS, 07/12/19) Home Medication List Reviewed: Yes [id number] Hx Patient Social History Marital Status: Employed/Student: retired Alcohol Use: Past History Recreational Drug Use: No Smoking Status: Former Smoker Recent Foreign Travel: No Recent Infectious Disease Expo: No Recent Hopitalizations: No Past Medical History Discussed below Family Medical History Family Medical Hx Noncontributory to his current condition Family History: Patient reports no known family medical history. Review of Systems-General Review of Systems Constitutional: malaise, weakness EENTM: no symptoms reported Respiratory: see HPI; No cough; dyspnea on exertion; No hemoptysis, No orthopnea, No phlegm, No short of breath, No stridor, No wheezing, No other Cardiovascular: see HPI, chest pain; No edema, No Hx of Intervention, No palpitations, No syncope, No vascular heart diseas, No other Gastrointestinal: no symptoms reported, see HPI Genitourinary: no symptoms reported, see HPI Musculoskeletal: back pain, muscle weakness, neck pain Skin: no symptoms reported, see HPI Psychiatric/Neurological: No Symptoms Reported, See HPI All Other Systems Reviewed Negative Unless Noted: Yes Reviewed Test Results Reviewed Test Results Lab Laboratory Tests Test 07/14/19 07:55 07/14/19 13:30 Range/Units Sodium Level 142 135-145 MMOL/L Potassium Level 3.6 3.6-5.0 MMOL/L Chloride Level 111 H 98-107 MMOL/L Carbon Dioxide Level 23 21-32 MMOL/L Anion Gap 8 5-14 MMOL/L Blood Urea Nitrogen 16 7-18 MG/DL Creatinine 0.82 0.60-1.30 MG/DL Estimat Glomerular Filtration Rate > 60 BUN/Creatinine Ratio 20 Glucose Level 88 70-105 MG/DL Calcium Level 8.5 8.5-10.1 MG/DL Troponin I < 0.028 <0.028 NG/ML Physical Exam Physical Exam Vital Signs Vital Signs - First Documented 07/12/19 17:28 Temp 36.3 Pulse 78 Resp 16 B/P (MAP) 131/88 (102) Pulse Ox 95 O2 Delivery Room Air Capillary Refill : Less Than 3 Seconds Height, Weight, BMI Height: '" Weight: lbs. oz. kg; 29.48 BMI Method: General Appearance: No Apparent Distress, WD/WN Eyes: Bilateral Eye PERRL, Bilateral Eye EOMI HEENT: PERRL/EOMI, Pharynx Normal Neck: Normal Inspection, Supple Respiratory: Lungs Clear, Normal Breath Sounds, No Respiratory Distress Cardiovascular: Regular Rate, Rhythm, No Edema, No Murmur Gastrointestinal: Normal Bowel Sounds, Non Tender, Soft Back: Normal Inspection Extremity: Normal Inspection, Pedal Edema Neurologic/Psychiatric: Oriented x3, Motor Weakness, Other (Strength 4 out of 5 bilateral upper extremities, strength 3 out of 5 bilateral lower extremities) Skin: Normal Color, Warm/Dry Lymphatic: No Adenopathy A/P-Cardiology Admission Diagnosis Chest pain Coronary artery disease Herniated disc Hypertension Hyperlipidemia Assessment/Plan Chest pain resulting in angina responsive to nitroglycerin, no acute EKG changes. Continue to monitor next Coronary artery disease, history of CABG, multiple intervention the past, recent cardiac catheterization with drug-eluting stent deployment to the vein graft to the diagonal artery, had a patent GRACE to LAD with patent stent beyond the anastomosis in the LAD, small vessel disease otherwise done by Dr. Perez in [place] [facility], maintained on aspirin and Plavix Hypertension, monitor blood pressure Sinus bradycardia. Secondary to medication, monitor blood pressure Hyperlipidemia, maintained on statin Generalized weakness, lower and upper extremity weakness, cervical spinal stenosis with slipped disc, may require surgery. Dementia Preoperative cardiac evaluation, patient is considered at high risk for perioperative cardiovascular complication, had a recent deployment of drug- eluting stent in the vein graft to the diagonal artery with residual haziness according to the report, will need a minimum of 3 months of dual antiplatelet therapy preferably 6 months to a year. Risk of bleeding complication is high, decision regarding the surgery, risk versus benefit is deferred to the surgeon Clinical Quality Measures DVT/VTE Risk/Contraindication: Risk Factor Score Per Nursin RFS Level Per Nursing on Admit: 4+=Very High CHRISTIANO DAVIS MD Jul 14, 2019 16:02
[2019-07-14] MEDS: DONEPEZIL 10 MG (ARICEPT) TAB PO SCH (19:57)
[2019-07-14] MEDS: amLODIPine 10 MG (NORVASC) TAB PO SCH (20:04)
[2019-07-14] MEDS: TERAZOSIN 5 MG (HYTRIN) CAPSULE PO SCH (20:04)
[2019-07-14] MEDS ORDERED: CARVEDILOL 12.5 MG (COREG) TABLET PO SCH (21:00)
[2019-07-15] MEDS: NS IV 1000 ML 1,000 ML IV SCH ×3 (01:54→19:57)
[2019-07-15 03:33] VITALS: BP 134/62
[2019-07-15] MEDS: CATHETER FLUSH 10 ML SYR IV SCH ×3 (04:25→20:31)
[2019-07-15 06:27] LABS: HEMOGLOBIN 12.3 G/DL (13.3-17.7); MEAN PLATELET VOLUME 9.5 FL (7.4-10.4); RED CELL DISTRIBUTION WIDTH 14.3 % (10.0-14.5)
[2019-07-15 06:55] LABS: ALANINE AMINOTRANSFERASE 15 U/L (0-55); ALBUMIN 3.6 GM/DL (3.2-4.5); ALKALINE PHOSPHATASE 67 U/L (40-136); BILIRUBIN,TOTAL 0.4 MG/DL (0.1-1.0); BUN/CREATININE RATIO 14; CALCIUM 8.5 MG/DL (8.5-10.1); CARBON DIOXIDE 22 MMOL/L (21-32); CHLORIDE 111 MMOL/L (98-107); CREATININE SERUM 0.78 MG/DL (0.60-1.30); GFR ESTIMATED > 60; GLUCOSE 87 MG/DL (70-105); POTASSIUM 3.6 MMOL/L (3.6-5.0); SODIUM 141 MMOL/L (135-145); TOTAL PROTEIN 5.7 GM/DL (6.4-8.2)
--- NOTE | 2019-07-15 08:28 | Cardiology Progress Note ---
Subjective Date Seen by Provider: Jul 15, 2019 Time Seen by Provider: 08:23 Subjective/Events-last exam Patient is in bed, feeling better, no chest pain today Review of Systems General: No Chills, No Night Sweats, No Fatigue, No Malaise, No Appetite, No Other HEENT: No Head Aches, No Visual Changes, No Eye Pain, No Ear Pain, No Dysphasia, No Sinus Congestion, No Post Nasal Drip, No Sore Throat, No Other Pulmonary: No Dyspnea, No Cough, No Pleuritic Chest Pain, No Other Cardiovascular: No: Chest Pain, Palpitations, Orthopnea, Paroxysmal Noc. Dyspnea, Edema, Lt Headedness, Other Objective-Cardiology Exam Last Set of Vital Signs Vital Signs 07/14/19 07/15/19 23:27 03:33 Temp 36.4 Pulse 51 Resp 20 B/P (MAP) 134/62 (86) Pulse Ox 97 O2 Delivery Room Air Capillary Refill : Less Than 3 Seconds I&O Intake and Output 07/15/19 00:00 Intake Total 2350 ml Output Total 1525 ml Balance 825 ml Intake Oral 1350 ml IV Total 1000 ml Output Urine Total 1525 ml General: Alert, Oriented X3, Cooperative HEENT: Atraumatic, PERRLA Neck: Supple, No JVD, No Thyromegaly Lungs: Clear to Auscultation, Normal Air Movement Heart: Normal S1, Normal S2, Other (Systolic murmur, S3) Abdomen: Normal Bowel Sounds, Soft, No Tenderness, No Hepatosplenomegaly, No Masses Extremities: No Clubbing, No Cyanosis, No Edema, Normal Pulses, No Tenderness/Swelling Skin: No Rashes, No Breakdown, No Significant Lesion Neuro: Normal Gait, Normal Speech, Strength at 5/5 X4 Ext, Normal Tone, Sensation Intact Psych/Mental Status: Mental Status NL, Mood NL Results Lab Laboratory Tests 07/15/19 06:10 A/P-Cardiology Admission Diagnosis Chest pain Coronary artery disease Herniated disc Hypertension Hyperlipidemia Assessment/Plan Chest pain resulting in angina responsive to nitroglycerin, no acute EKG changes, better at this time, continue to monitor Coronary artery disease, history of CABG, multiple intervention the past, recent cardiac catheterization with drug-eluting stent deployment to the vein graft to the diagonal artery, had a patent RGACE to LAD with patent stent beyond the anastomosis in the LAD, small vessel disease otherwise done by Dr. Perez in [facility], maintained on aspirin and Plavix Hypertension, monitor blood pressure Sinus bradycardia. Secondary to medication, monitor blood pressure Hyperlipidemia, maintained on statin Generalized weakness, lower and upper extremity weakness, cervical spinal stenosis with slipped disc, may require surgery. Dementia Preoperative cardiac evaluation, patient is considered at high risk for perioperative cardiovascular complication, had a recent deployment of drug-eluti ng stent in the vein graft to the diagonal artery with residual haziness according to the report, will need a minimum of 3 months of dual antiplatelet therapy preferably 6 months to a year. Risk of bleeding complication is high, decision regarding the surgery, risk versus benefit is deferred to the surgeon Clinical Quality Measures DVT/VTE Risk/Contraindication: Risk Factor Score Per Nursin RFS Level Per Nursing on Admit: 4+=Very High CHRISTIANO DAVIS MD Jul 15, 2019 08:28
[2019-07-15 09:00] VITALS: BP 136/69
[2019-07-15] MEDS ORDERED: CLOPIDOGREL 75 MG (PLAVIX) TABLET PO SCH (09:00)
[2019-07-15] MEDS ORDERED: ASPIRIN E.C. 81 MG (ECOTRIN) TAB PO SCH (09:00)
--- NOTE | 2019-07-15 09:43 | Physical Therapy Daily Note ---
PT Daily Note-Current Subjective Patient is very emotional. Patient states the machine assembler supervisor came in this morning and reported patient would have to wait for 3 months before back surgery. Patient is very tearful. Pain Numeric Pain Scale: 10-Worst Possible Pain Location: Right, Lower Location Body Site: Back Pain Description: Stabbing Mental Status Patient Orientation: Normal For Age Attachments: IV Transfers Therapy Code Descriptions/Definitions Functional Daniels Measure: 0=Not Assessed/NA 4=Minimal Assistance 1=Total Assistance 5=Supervision or Setup 2=Maximal Assistance 6=Modified Daniels 3=Moderate Assistance 7=Complete Daniels Therapy Quality Codes: 6 Independent with activity with or without an assistive device 5 Patient requires set up or clean up by helper. Patient completes activity by themselves 4 Supervision or touching assist (CGA). [place] provide cues , steadying assist 3 The helper provides less than half the effort to complete the activity 2 The helper provides more than half the effort to complete the activity 1 Dependent. The helper does all the effort to complete an activity 7 Patient refused to complete or attempt activity 9 The patient did not perform the activity before the current illness or injury 88 Not attempted due to Medical conditions or safety concerns Transfers (B, C, W/C) (FIM): 1 Scootin Rollin Supine to/from Sit: 1 unable to perform sit to stand and requires dependent assist x 2 due to weakness and pain (patient declined OOB on this date) PT to utilize slide board for transfers Weight Bearing Right Lower Extremity: Right Weight Bearing/Tolerated Left Lower Extremity: Left Weight Bearing/Tolerated Exercises Supine Ex: Ankle pumps, Heel Slides, Straight leg raise, Hip abd/add Supine Reps: 15 (AAROM bilateral LE x 2 sets) Assessment Patient tolerates minimal activity due to pain and being emotional. PT unable to confirm machine assembler supervisor report at this time. PT Short Term Goals Short Term Goals Time Frame: Jul 20, 2019 Transfers (B,C,W/C) (FIM): 3 Gait (FIM): 1 Gait Distance Comment: 10' Gait Level of Assist: 4 Gait Assistive Device: FWW PT Plan Treatment/Plan Treatment Plan: Continue Plan of Care Treatment Plan: Bed Mobility, Concurrent Therapy, Education, Functional Activity Jesus Alberto, Functional Strength, Gait, Safety, Therapeutic Exercise, Transfers Treatment Duration: Jul 20, 2019 Frequency: 6 times per week Estimated Hrs Per Day: .25 hour per day Patient and/or Family Agrees t: Yes Time/GCodes Time In: 846 Time Out: 856 Total Billed Treatment Time: 10 Total Billed Treatment 1 visit EX 10 min JOSE CORADO PT Jul 15, 2019 09:43
[2019-07-15] MEDS: CARVEDILOL 3.125 MG (COREG) TABLET PO SCH ×2 (10:07→20:31)
[2019-07-15] MEDS: oxyCODONE/APAP 5/325MG (PERCOCET 5) TABLET PO PRN ×2 (10:07→14:40)
[2019-07-15] MEDS: TOLTERODINE LA 4 MG (DETROL) CAP PO SCH (10:07)
[2019-07-15] MEDS: PANTOPRAZOLE 40 MG (PROTONIX) TAB PO SCH (10:07)
[2019-07-15] MEDS: DOCUSATE CALCIUM 240 MG (SURFAK) CAP PO SCH ×2 (10:07→19:31)
[2019-07-15] MEDS: LORATADINE (CLARITIN) 10 MG TAB PO SCH (10:08)
[2019-07-15] MEDS: LOSARTAN 50 MG (COZAAR) TAB PO SCH (10:09)
[2019-07-15 11:41] VITALS: BP 151/62
--- NOTE | 2019-07-15 11:59 | Occupational Ther Daily Note ---
OT Current Status-Daily Note Subjective Pt seen in bed, c/o pain in back with no numerical value placed. Pt agreeable to OT tx session. Mental Status/Objective Patient Orientation: Normal For Age Therapy Code Descriptions/Definitions Functional Stephenson Measure: 0=Not Assessed/NA 4=Minimal Assistance 1=Total Assistance 5=Supervision or Setup 2=Maximal Assistance 6=Modified Stephenson 3=Moderate Assistance 7=Complete Stephenson Attachments: Telemetry ADL-Treatment Eating (FIM): 6 Grooming (FIM): 5 (s/u for wipes for hand hygiene and face hygiene) Other Treatment Pt seen in bed, stating he has 3 months before surgery can be provided. Pt educated of acute OT services and desire to complete ADLs within pain tolerance. Pt states he is able to complete dressing tasks in bed, prefers not to complete on this date. Pt completes grooming tasks in bed, able to wash hands, face, and janna area. Pt has urinal placed between legs, states he has no control over bladder and it just "leaks out." Pt states he has not been able to control bladder for 4-5 years, as he has had "prostate issues." Pt completes janna hygiene with s/u, urinal removed, new urinal pt able to put in place. Pt educated of importance of UE strengthening, pt asked to demonstrate given exercises of previous day. Pt able to complete with mod cues for placement. Pt left in bed, call light in reach, all needs met. Education OT Patient Education: Correct positioning, Exercise program, Home exercise program, Modified ADL techniques, Purpose of tx/functional activities, Rehab process, Safety issues Teaching Recipient: Patient Teaching Methods: Demonstration, Discussion Response to Teaching: Verbalize Understanding, Return Demonstration OT Short Term Goals Short Term Goals Grooming(FIM): 6 Lower Body Dressing(FIM): 2 Toileting(FIM): 3 Transfers (B,C,W/C) (FIM): 3 1=Demonstrate adherence to instructed precautions during ADL tasks. 2=Patient will verbalize/demonstrate understanding of assistive devices/modifications for ADL. 3=Patient will improve strength/tolerance for activity to enable patient to perform ADL's. OT Hospital Television Rental Clerk Goals Hospital Television Rental Clerk Goals Eating (FIM): 7 Grooming(FIM): 6 Bathing(FIM): 3 Upper Body Dressing(FIM): 4 Lower Body Dressing(FIM): 3 Toileting(FIM): 4 Transfers (B,C,W/C) (FIM): 4 Toilet/Commode Transfer(FIM): 4 Tub Transfer(FIM): 4 Shower Transfer(FIM): 4 Additional Goals: 1-Demonstrate ADL Tasks, 2-Verbalize Understanding, 3- ImproveStrength/Jesus Alberto 1=Demonstrate adherence to instructed precautions during ADL tasks. 2=Patient will verbalize/demonstrate understanding of assistive devices/modific ations for ADL. 3=Patient will improve strength/tolerance for activity to enable patient to perform ADL's. OT Education/Plan Problem List/Assessment Assessment: Decreased Activ Tolerance, Decreased UE Strength, Dependent Transfers, Impaired Bed Mobility, Impaired I ADL's, Impaired Self-Care Skills Discharge Recommendations Plan/Recommendations: Continue POC Treatment Plan/Plan of Care Treatment,Training & Education: Yes Patient would benefit from OT for education, treatment and training to promote independence in ADL's, mobility, safety and/or upper extremity function for ADL's. Plan of Care: ADL Retraining, Caregiver Training, Functional Mobility, UE Funct Exercise/Act Frequency: 5 times per week Estimated Hrs Per Day: .25 hour per day Agreement: Yes Rehab Potential: Fair Time/GCodes Start Time: 08:15 Stop Time: 08:26 Total Time Billed (hr/min): 11 Billed Treatment Time 1 ADL (11) GAYLE NOEL OTR Jul 15, 2019 11:59
--- NOTE | 2019-07-15 14:27 | NUR ---
Pt requested lube technician support. He verbalized fears of surgery and requested prayer.
[2019-07-15 16:20] VITALS: BP 143/73
--- NOTE | 2019-07-15 16:21 | Progress Note - Hospitalist ---
Subjective HPI/CC On Admission Date Seen by Provider: Jul 15, 2019 Time Seen by Provider: 09:30 weakness Subjective/Events-last exam He reports pain in his right hip which is severe. He reports ongoing weakness in his legs bilaterally with right worse than left. He reports bilateral hand weakness which is unchanged. He denies fevers and chills. He denies chest pain and shortness of breath. He denies abdominal pain, nausea, vomiting. He was unable to make it to the stool today for a bowel movement. Objective Exam Vital Signs Vital Signs Date Time Temp Pulse Resp B/P (MAP) Pulse Ox O2 Delivery O2 Flow Rate FiO2 07/15/19 12:55 78 07/15/19 11:41 37.1 18 151/62 (91) 97 Room Air Capillary Refill : Less Than 3 Seconds General Appearance: Anxious, Mild Distress, Other (uncomfortable) HEENT: PERRL/EOMI Neck: Normal Inspection, Supple Respiratory: Lungs Clear, Normal Breath Sounds, No Respiratory Distress Cardiovascular: Regular Rate, Rhythm, No Edema, No Murmur Gastrointestinal: Normal Bowel Sounds, Non Tender, Soft Extremity: Normal Inspection, Non Tender, No Pedal Edema Neurologic/Psychiatric: Alert, Oriented x3, Other (bilateral hand weakness 4/5, bilateral leg weakness left 3/5 and right 2/5) Skin: Normal Color, Warm/Dry Results/Procedures Lab Laboratory Tests 07/15/19 06:10 Patient resulted labs reviewed. Imaging: Reviewed Imaging Report Assessment/Plan Assessment and Plan Assess & Plan/Chief Complaint Cervical spinal stenosis Slipped intravertebral disc Lumbar spinal stenosis -Long discussion with patient today regarding plan of care. He is a high risk surgical candidate not only due to his recent coronary stent placement and associated risk of stopping anti-platelet medications with possible in-stent thrombosis risk, but also due to untreated coronary artery disease which puts him at even higher risk. With his current deficits and risk of permanent disability, he is willing to accept the risk of perioperative morbidity and mortality associated with proceeding with surgery and would like to discuss the plan with Dr. Bhatt. He understands that if he were to develop a perioperative myocardial infarction the medications needed to treat this would most likely cause bleeding at the site of his spinal surgery and lead to permanent disability or even . -Cardiology, Dr. Cowan, following -Ortho, Dr. Bhatt, notified of patient preference as well as Dr. Cowan's recommendations and will discuss the options with the patient -Unable to participate for inpatient rehabilitation at this time, PT/OT follow ing Coronary artery disease -Stopping aspirin and Plavix for possible surgical intervention HTN -Stable, continue home meds Diagnosis/Problems Diagnosis/Problems (1) Generalized weakness Status: Acute (2) Cervical spinal stenosis Status: Acute (3) Lumbar spinal stenosis Status: Acute (4) Slipped intervertebral disc Status: Acute (5) Neuroforaminal stenosis of spine Status: Acute Clinical Quality Measures DVT/VTE Risk/Contraindication: Risk Factor Score Per Nursin RFS Level Per Nursing on Admit: 4+=Very High FRANK DING MD Jul 15, 2019 16:20
[2019-07-15] MEDS ORDERED: diphenhydrAMINE 25 MG TAB (BENADRYL) PO PRN (16:45)
[2019-07-15] MEDS ORDERED: ACETAMINOPHEN 325 MG TABLET PO PRN (16:45)
[2019-07-15] MEDS ORDERED: ONDANSETRON 4 MG (ZOFRAN) ORAL DISSOLVE TAB PO PRN (16:45)
[2019-07-15] MEDS ORDERED: HYDROmorphone 2 MG/ML VIAL (DILAUDID) IV PRN (16:45)
[2019-07-15] MEDS ORDERED: POLYETHYLENE GLYCOL 17 GM (MIRALAX) PACK PO PRN (16:45)
[2019-07-15] MEDS: SENNA W/DOCUSATE (SENOKOT S) TABLET PO SCH (19:30)
[2019-07-15 20:25] VITALS: BP 143/65
[2019-07-15] MEDS: TERAZOSIN 5 MG (HYTRIN) CAPSULE PO SCH (20:31)
[2019-07-15] MEDS: amLODIPine 10 MG (NORVASC) TAB PO SCH (20:31)
[2019-07-15] MEDS: DONEPEZIL 10 MG (ARICEPT) TAB PO SCH (20:31)
[2019-07-16 00:50] VITALS: BP 146/75
[2019-07-16 04:22] VITALS: BP 156/75
[2019-07-16] MEDS: NS IV 1000 ML 1,000 ML IV SCH ×3 (04:22→21:41)
[2019-07-16] MEDS: CATHETER FLUSH 10 ML SYR IV SCH ×3 (04:22→20:17)
[2019-07-16 08:04] VITALS: BP 142/63
[2019-07-16] MEDS: LORATADINE (CLARITIN) 10 MG TAB PO SCH (08:31)
[2019-07-16] MEDS: PANTOPRAZOLE 40 MG (PROTONIX) TAB PO SCH (08:31)
[2019-07-16] MEDS: CARVEDILOL 3.125 MG (COREG) TABLET PO SCH ×2 (08:31→20:17)
[2019-07-16] MEDS: LOSARTAN 50 MG (COZAAR) TAB PO SCH (08:31)
[2019-07-16] MEDS: SENNA W/DOCUSATE (SENOKOT S) TABLET PO SCH ×2 (08:31→20:17)
[2019-07-16] MEDS: DOCUSATE CALCIUM 240 MG (SURFAK) CAP PO SCH ×2 (08:31→20:16)
[2019-07-16] MEDS: TOLTERODINE LA 4 MG (DETROL) CAP PO SCH (08:31)
--- NOTE | 2019-07-16 09:42 | Cardiology Progress Note ---
Subjective Date Seen by Provider: Jul 16, 2019 Time Seen by Provider: 09:41 Subjective/Events-last exam Patient is sitting in bed, still having significant pain Review of Systems General: No Chills, No Night Sweats, No Fatigue, No Malaise, No Appetite, No Other HEENT: No Head Aches, No Visual Changes, No Eye Pain, No Ear Pain, No Dysphasia, No Sinus Congestion, No Post Nasal Drip, No Sore Throat, No Other Pulmonary: No Dyspnea, No Cough, No Pleuritic Chest Pain, No Other Cardiovascular: No: Chest Pain, Palpitations, Orthopnea, Paroxysmal Noc. Dyspnea, Edema, Lt Headedness, Other Objective-Cardiology Exam Last Set of Vital Signs Vital Signs 07/16/19 08:04 Temp 37.2 Pulse 63 Resp 18 B/P (MAP) 142/63 (89) Pulse Ox 93 O2 Delivery Room Air Capillary Refill : Less Than 3 Seconds I&O Intake and Output 07/16/19 00:00 Intake Total 1600 ml Output Total 2050 ml Balance -450 ml Intake Oral 600 ml IV Total 1000 ml Output Urine Total 2050 ml # Bowel Movements 4 General: Alert, Oriented X3, Cooperative HEENT: Atraumatic, PERRLA Neck: Supple, No JVD, No Thyromegaly Lungs: Clear to Auscultation, Normal Air Movement Heart: Normal S1, Normal S2, Other (Systolic murmur, S3) Abdomen: Normal Bowel Sounds, Soft, No Tenderness, No Hepatosplenomegaly, No Masses Extremities: No Clubbing, No Cyanosis, No Edema, Normal Pulses, No Tenderness/Swelling Skin: No Rashes, No Breakdown, No Significant Lesion Neuro: Normal Gait, Normal Speech, Strength at 5/5 X4 Ext, Normal Tone, Sensation Intact Psych/Mental Status: Mental Status NL, Mood NL A/P-Cardiology Admission Diagnosis Chest pain Coronary artery disease Herniated disc Hypertension Hyperlipidemia Assessment/Plan Chest pain resulting in angina responsive to nitroglycerin, no acute EKG changes, better at this time, continue to monitor Coronary artery disease, history of CABG, multiple intervention the past, recent cardiac catheterization with drug-eluting stent deployment to the vein graft to the diagonal artery, had a patent GRACE to LAD with patent stent beyond the anastomosis in the LAD, small vessel disease otherwise done by Dr. Perez in [facility], maintained on aspirin and Plavix Hypertension, monitor blood pressure Sinus bradycardia. Secondary to medication, monitor blood pressure Hyperlipidemia, maintained on statin Generalized weakness, lower and upper extremity weakness, cervical spinal stenosis with slipped disc, may require surgery. Dementia Preoperative cardiac evaluation, patient is considered at high risk for perioperative cardiovascular complication, had a recent deployment of drug- eluting stent in the vein graft to the diagonal artery with residual haziness according to the report, will need a minimum of 3 months of dual antiplatelet therapy preferably 6 months to a year. Risk of bleeding complication is high, d ecision regarding the surgery, risk versus benefit is deferred to the surgeon Clinical Quality Measures DVT/VTE Risk/Contraindication: Risk Factor Score Per Nursin RFS Level Per Nursing on Admit: 4+=Very High CHRISTIANO DAVIS MD Jul 16, 2019 09:42
[2019-07-16] MEDS: HYDROmorphone 2 MG/ML VIAL (DILAUDID) IV PRN ×4 (09:58→23:45)
--- NOTE | 2019-07-16 10:02 | Physical Therapy Progress Note ---
Therapy Progress Note Patient adamantly declined PT on this date due to uncontrolled back and right LE pain. He refused bed exercises and OOB activity. RN notified. Pain medication had been issued. 1 ref ([id number]) JOSE CORADO PT Jul 16, 2019 10:02
--- NOTE | 2019-07-16 11:32 | Progress Note - Hospitalist ---
Subjective HPI/CC On Admission Date Seen by Provider: Jul 16, 2019 Time Seen by Provider: 10:30 weakness Subjective/Events-last exam He continues to have pain in his back which shoots down his right leg. He continues to be very weak. He denies any chest pain or shortness of breath. He denies any fevers or chills. He denies any nausea, vomiting, abdominal pain, diarrhea. He denies any incontinence. Objective Exam Vital Signs Vital Signs Date Time Temp Pulse Resp B/P (MAP) Pulse Ox O2 Delivery O2 Flow Rate FiO2 07/16/19 08:04 37.2 63 18 142/63 (89) 93 Room Air Capillary Refill : Less Than 3 Seconds General Appearance: WD/WN, Mild Distress HEENT: PERRL/EOMI, Pharynx Normal Neck: Normal Inspection, Supple Respiratory: Lungs Clear, Normal Breath Sounds, No Respiratory Distress Cardiovascular: Regular Rate, Rhythm, No Edema, No Murmur Gastrointestinal: Normal Bowel Sounds, Non Tender, Soft Extremity: Non Tender, No Pedal Edema, Other (Bilateral lower extremity weakness, bilateral hand weakness) Neurologic/Psychiatric: Alert, Oriented x3, Motor Weakness Skin: Normal Color, Warm/Dry Results/Procedures Lab Patient resulted labs reviewed. Imaging: Reviewed Imaging Report Assessment/Plan Assessment and Plan Assess & Plan/Chief Complaint Cervical spinal stenosis Slipped intravertebral disc Lumbar spinal stenosis Pain regimen in place PT/OT following Unable to participate in inpatient rehabilitation Orthopedic surgery consulted, Dr. Bhatt to see patient this weekend Cardiology consulted, recent stent placement and coronary artery disease making patient a high risk surgical candidate Coronary artery disease -Aspirin and Plavix held for possible surgical intervention HTN -Stable, continue home meds Diagnosis/Problems Diagnosis/Problems (1) Generalized weakness Status: Acute (2) Cervical spinal stenosis Status: Acute (3) Lumbar spinal stenosis Status: Acute (4) Slipped intervertebral disc Status: Acute (5) Neuroforaminal stenosis of spine Status: Acute Clinical Quality Measures DVT/VTE Risk/Contraindication: Risk Factor Score Per Nursin RFS Level Per Nursing on Admit: 4+=Very High FRANK DING MD Jul 16, 2019 11:32
[2019-07-16 12:54] VITALS: BP 156/70
[2019-07-16 16:50] VITALS: BP 159/77
[2019-07-16 19:40] VITALS: BP 170/72
[2019-07-16] MEDS: TERAZOSIN 5 MG (HYTRIN) CAPSULE PO SCH (20:16)
[2019-07-16] MEDS: DONEPEZIL 10 MG (ARICEPT) TAB PO SCH (20:17)
[2019-07-16] MEDS: amLODIPine 10 MG (NORVASC) TAB PO SCH (20:17)
[2019-07-17 00:53] VITALS: BP 117/67
[2019-07-17 04:10] VITALS: BP 155/72
[2019-07-17] MEDS: CATHETER FLUSH 10 ML SYR IV SCH ×3 (06:18→22:00)
[2019-07-17] MEDS: CARVEDILOL 3.125 MG (COREG) TABLET PO SCH ×2 (07:34→20:00)
[2019-07-17] MEDS: DOCUSATE CALCIUM 240 MG (SURFAK) CAP PO SCH ×3 (07:34→19:59)
[2019-07-17] MEDS: SENNA W/DOCUSATE (SENOKOT S) TABLET PO SCH ×2 (07:34→19:59)
[2019-07-17] MEDS: TOLTERODINE LA 4 MG (DETROL) CAP PO SCH (07:34)
[2019-07-17] MEDS: LOSARTAN 50 MG (COZAAR) TAB PO SCH (07:34)
[2019-07-17] MEDS: PANTOPRAZOLE 40 MG (PROTONIX) TAB PO SCH (07:34)
[2019-07-17] MEDS: LORATADINE (CLARITIN) 10 MG TAB PO SCH (07:35)
[2019-07-17 08:07] VITALS: BP 162/94
[2019-07-17] MEDS: HYDROmorphone 2 MG/ML VIAL (DILAUDID) IV PRN ×3 (08:11→21:49)
[2019-07-17 08:37] LABS: BASOPHILS # (AUTO) 0.1 10^3/uL (0.0-0.1); BASOPHILS % (AUTO) 1 % (0-10); EOSINOPHILS # (AUTO) 0.2 10^3/uL (0.0-0.3); EOSINOPHILS % (AUTO) 2 % (0-10); HEMATOCRIT 38 % (40-54); HEMOGLOBIN 13.1 G/DL (13.3-17.7); LYMPHOCYTES # (AUTO) 1.1 X 10^3 (1.0-4.0); LYMPHOCYTES % (AUTO) 12 % (12-44); MEAN CORPUSCULAR HEMOGLOBIN 31 PG (25-34); MEAN CORPUSCULAR HGB CONC 35 G/DL (32-36); MEAN CORPUSCULAR VOLUME 90 FL (80-99); MEAN PLATELET VOLUME 9.3 FL (7.4-10.4); MONOCYTES # (AUTO) 0.8 X 10^3 (0.0-1.0); MONOCYTES % (AUTO) 9 % (0-12); NEUTROPHILS # (AUTO) 6.8 X 10^3 (1.8-7.8); NEUTROPHILS % (AUTO) 76 % (42-75); PLATELET COUNT 259 10^3/uL (130-400); RED CELL DISTRIBUTION WIDTH 13.8 % (10.0-14.5)
[2019-07-17 08:50] LABS: BUN/CREATININE RATIO 15; CALCIUM 8.8 MG/DL (8.5-10.1); CARBON DIOXIDE 21 MMOL/L (21-32); CHLORIDE 108 MMOL/L (98-107); CREATININE SERUM 0.75 MG/DL (0.60-1.30); GFR ESTIMATED > 60; GLUCOSE 100 MG/DL (70-105); POTASSIUM 3.8 MMOL/L (3.6-5.0); SODIUM 138 MMOL/L (135-145)
--- NOTE | 2019-07-17 10:01 | Cardiology Progress Note ---
Subjective Date Seen by Provider: Jul 17, 2019 Time Seen by Provider: 09:59 Subjective/Events-last exam Patient is laying down in bed, still having back pain and numbness in his fingers Review of Systems General: No Chills, No Night Sweats; Fatigue, Malaise; No Appetite, No Other HEENT: No Head Aches, No Visual Changes, No Eye Pain, No Ear Pain, No Dysphasia, No Sinus Congestion, No Post Nasal Drip, No Sore Throat, No Other Pulmonary: No Dyspnea, No Cough, No Pleuritic Chest Pain, No Other Cardiovascular: No: Chest Pain, Palpitations, Orthopnea, Paroxysmal Noc. Dyspnea, Edema, Lt Headedness, Other Objective-Cardiology Exam Last Set of Vital Signs Vital Signs 07/17/19 08:07 Temp 37.2 Pulse 65 Resp 20 B/P (MAP) 162/94 (116) Pulse Ox 94 O2 Delivery Room Air Capillary Refill : Less Than 3 Seconds I&O Intake and Output 07/17/19 00:00 Intake Total 1830 ml Output Total 1325 ml Balance 505 ml Intake Oral 830 ml IV Total 1000 ml Output Urine Total 1325 ml General: Alert, Oriented X3, Cooperative HEENT: Atraumatic, PERRLA Neck: Supple, No JVD, No Thyromegaly Lungs: Clear to Auscultation, Normal Air Movement Heart: Normal S1, Normal S2, Other (Systolic murmur, S3) Abdomen: Normal Bowel Sounds, Soft, No Tenderness, No Hepatosplenomegaly, No Masses Extremities: No Clubbing, No Cyanosis, No Edema, Normal Pulses, No Tenderness/Swelling Skin: No Rashes, No Breakdown, No Significant Lesion Neuro: Normal Speech Psych/Mental Status: Mental Status NL, Mood NL Results Lab Laboratory Tests 07/17/19 08:30 A/P-Cardiology Admission Diagnosis Chest pain Coronary artery disease Herniated disc Hypertension Hyperlipidemia Assessment/Plan Chest pain resembling angina responsive to nitroglycerin, no acute EKG changes, better at this time, continue to monitor Coronary artery disease, history of CABG, multiple intervention the past, recent cardiac catheterization with drug-eluting stent deployment to the vein graft to the diagonal artery, had a patent GRACE to LAD with patent stent beyond the anastomosis in the LAD, small vessel disease otherwise done by Dr. Perez in [facility], currently aspirin and Plavix are on hold since July 16, [address] Bhatt recommendation, it was reported to me that surgery is urgent and has to be done during this admission Hypertension, monitor blood pressure Sinus bradycardia. Secondary to medication, monitor blood pressure Hyperlipidemia, maintained on statin Generalized weakness, lower and upper extremity weakness, cervical spinal stenosis with slipped disc, may require surgery. Dementia Patient is considered at high risk for perioperative cardiovascular comp lication, had a recent deployment of drug-eluting stent in the vein graft to the diagonal artery with residual haziness according to the report, will need a minimum of 3 months of dual antiplatelet therapy preferably 6 months to a year. Risk of bleeding complication is high, decision regarding the surgery, risk versus benefit is deferred to the surgeon Clinical Quality Measures DVT/VTE Risk/Contraindication: Risk Factor Score Per Nursin RFS Level Per Nursing on Admit: 4+=Very High CHRISTIANO DAVIS MD Jul 17, 2019 10:01
[2019-07-17 11:41] VITALS: BP 156/68
[2019-07-17] MEDS: NS IV 1000 ML 1,000 ML IV SCH (11:51)
--- NOTE | 2019-07-17 12:10 | Progress Note - Hospitalist ---
Subjective HPI/CC On Admission Date Seen by Provider: Jul 17, 2019 Time Seen by Provider: 09:45 weakness Subjective/Events-last exam Reports improved pain with the increased pain medicine. He continues to have b ilateral lower extremity weakness as well as bilateral hand weakness. He is also having incontinence, which appears to be functional. He denies any fevers or chills. He denies any chest pain or shortness of breath. He denies any abdominal pain, nausea, vomiting, or diarrhea. He is eating and drinking. Objective Exam Vital Signs Vital Signs Date Time Temp Pulse Resp B/P (MAP) Pulse Ox O2 Delivery O2 Flow Rate FiO2 07/17/19 11:41 36.8 64 18 156/68 (97) 93 Room Air Capillary Refill : Less Than 3 Seconds General Appearance: No Apparent Distress, WD/WN HEENT: PERRL/EOMI, Pharynx Normal Neck: Normal Inspection, Supple Respiratory: Lungs Clear, Normal Breath Sounds, No Respiratory Distress Cardiovascular: Regular Rate, Rhythm, No Edema, No Murmur Gastrointestinal: Normal Bowel Sounds, Non Tender, Soft Extremity: Normal Inspection, Non Tender, No Pedal Edema Neurologic/Psychiatric: Alert, Motor Weakness Skin: Normal Color, Warm/Dry Results/Procedures Lab Laboratory Tests 07/17/19 08:30 Patient resulted labs reviewed. Assessment/Plan Assessment and Plan Assess & Plan/Chief Complaint Cervical spinal stenosis Slipped intravertebral disc Lumbar spinal stenosis Pain regimen in place PT/OT following Unable to participate in inpatient rehabilitation Orthopedic surgery consulted, Dr. Bhatt planning for surgery later this week after ASA/Plavix held for 5 days Cardiology consulted, recent stent placement and coronary artery disease making patient a high risk surgical candidate Coronary artery disease -ASA and Plavix held for surgical intervention, per Dr. Bhatt HTN -Stable, continue home meds Diagnosis/Problems Diagnosis/Problems (1) Generalized weakness Status: Acute (2) Cervical spinal stenosis Status: Acute (3) Lumbar spinal stenosis Status: Acute (4) Slipped intervertebral disc Status: Acute (5) Neuroforaminal stenosis of spine Status: Acute Clinical Quality Measures DVT/VTE Risk/Contraindication: Risk Factor Score Per Nursin RFS Level Per Nursing on Admit: 4+=Very High FRANK DING MD Jul 17, 2019 12:10
[2019-07-17] MEDS: DEXAMETHASONE 4 MG TAB (DECADRON) PO SCH ×2 (14:21→18:03)
[2019-07-17 15:59] VITALS: BP 149/68
[2019-07-17 19:49] VITALS: BP 136/64
[2019-07-17] MEDS: DONEPEZIL 10 MG (ARICEPT) TAB PO SCH (20:00)
[2019-07-17] MEDS: TERAZOSIN 5 MG (HYTRIN) CAPSULE PO SCH (20:00)
[2019-07-17] MEDS: amLODIPine 10 MG (NORVASC) TAB PO SCH (20:00)
[2019-07-18] VITALS: BP 120/60
[2019-07-18] MEDS: DEXAMETHASONE 4 MG TAB (DECADRON) PO SCH ×5 (02:36→22:59)
[2019-07-18 03:23] VITALS: BP 129/60
[2019-07-18] MEDS: CATHETER FLUSH 10 ML SYR IV SCH ×3 (06:00→20:17)
[2019-07-18 07:45] VITALS: BP 169/79
[2019-07-18] MEDS: DOCUSATE CALCIUM 240 MG (SURFAK) CAP PO SCH ×2 (08:01→20:17)
[2019-07-18] MEDS: LORATADINE (CLARITIN) 10 MG TAB PO SCH (08:01)
[2019-07-18] MEDS: TOLTERODINE LA 4 MG (DETROL) CAP PO SCH (08:01)
[2019-07-18] MEDS: SENNA W/DOCUSATE (SENOKOT S) TABLET PO SCH ×2 (08:01→20:17)
[2019-07-18] MEDS: LOSARTAN 50 MG (COZAAR) TAB PO SCH (08:01)
[2019-07-18] MEDS: CARVEDILOL 3.125 MG (COREG) TABLET PO SCH ×2 (08:02→20:17)
[2019-07-18] MEDS: PANTOPRAZOLE 40 MG (PROTONIX) TAB PO SCH (08:02)
--- NOTE | 2019-07-18 09:01 | Progress Note - Hospitalist ---
Subjective HPI/CC On Admission Time Seen by Provider: 09:00 weakness Objective Exam Vital Signs Vital Signs Date Time Temp Pulse Resp B/P (MAP) Pulse Ox O2 Delivery O2 Flow Rate FiO2 07/18/19 13:00 66 07/18/19 12:00 36.7 22 145/68 (93) 96 Room Air Capillary Refill : Less Than 3 Seconds Results/Procedures Lab Patient resulted labs reviewed. Clinical Quality Measures DVT/VTE Risk/Contraindication: Risk Factor Score Per Nursin RFS Level Per Nursing on Admit: 4+=Very High KIZZY MEEKS MD Jul 18, 2019 09:00
--- NOTE | 2019-07-18 09:11 | Cardiology Progress Note ---
Subjective Date Seen by Provider: Jul 18, 2019 Time Seen by Provider: 09:10 Objective-Cardiology Exam Last Set of Vital Signs Vital Signs 07/18/19 07:45 Temp 35.4 Pulse 67 Resp 18 B/P (MAP) 169/79 (109) Pulse Ox 97 O2 Delivery Room Air Capillary Refill : Less Than 3 Seconds I&O Intake and Output 07/18/19 00:00 Intake Total 2222 ml Output Total 1850 ml Balance 372 ml Intake Oral 1222 ml IV Total 1000 ml Output Urine Total 1850 ml # Voids 3 # Bowel Movements 1 General: Alert, Oriented X3, Cooperative HEENT: Atraumatic, PERRLA Neck: Supple, No JVD, No Thyromegaly Lungs: Clear to Auscultation, Normal Air Movement Heart: Normal S1, Normal S2, Other (Systolic murmur, S3) Abdomen: Normal Bowel Sounds, Soft, No Tenderness, No Hepatosplenomegaly, No Masses Extremities: No Clubbing, No Cyanosis, No Edema, Normal Pulses, No Tenderness/Swelling Skin: No Rashes, No Breakdown, No Significant Lesion Neuro: Normal Speech Psych/Mental Status: Mental Status NL, Mood NL A/P-Cardiology Admission Diagnosis Chest pain Coronary artery disease Herniated disc Hypertension Hyperlipidemia Assessment/Plan Chest pain resembling angina responsive to nitroglycerin, no acute EKG changes, better at this time, continue to monitor Coronary artery disease, history of CABG, multiple intervention the past, recent cardiac catheterization with drug-eluting stent deployment to the vein graft to the diagonal artery, had a patent GRACE to LAD with patent stent beyond the anastomosis in the LAD, small vessel disease otherwise done by Dr. Perez in [facility], currently aspirin and Plavix are on hold since July 16, [address] Bhatt recommendation, it was reported to me that surgery is urgent and has to be done during this admission Hypertension, monitor blood pressure Sinus bradycardia. Secondary to medication, monitor blood pressure Hyperlipidemia, maintained on statin Generalized weakness, lower and upper extremity weakness, cervical spinal stenosis with slipped disc, may require surgery. Dementia Patient is considered at high risk for perioperative cardiovascular complication, had a recent deployment of drug-eluting stent in the vein graft to the diagonal artery with residual haziness according to the report, will need a minimum of 3 months of dual antiplatelet therapy preferably 6 months to a year. Risk of bleeding complication is high, decision regarding the surgery, risk versus benefit is deferred to the surgeon Clinical Quality Measures DVT/VTE Risk/Contraindication: Risk Factor Score Per Nursin RFS Level Per Nursing on Admit: 4+=Very High DESIRE FULLER Jul 18, 2019 09:11
--- NOTE | 2019-07-18 09:14 | Physical Therapy Daily Note ---
PT Daily Note-Current Subjective Patient is very tearful due to LBP and right LE pain. Pain Numeric Pain Scale: 10-Worst Possible Pain Location: Right, Lower Location Body Site: Back Pain Description: Stabbing Mental Status Patient Orientation: Normal For Age Transfers Therapy Code Descriptions/Definitions Functional [place] Measure: 0=Not Assessed/NA 4=Minimal Assistance 1=Total Assistance 5=Supervision or Setup 2=Maximal Assistance 6=Modified Brule 3=Moderate Assistance 7=Complete [place] Therapy Quality Codes: 6 Independent with activity with or without an assistive device 5 Patient requires set up or clean up by helper. Patient completes activity by themselves 4 Supervision or touching assist (CGA). [place] provide cues , steadying assist 3 The helper provides less than half the effort to complete the activity 2 The helper provides more than half the effort to complete the activity 1 Dependent. The helper does all the effort to complete an activity 7 Patient refused to complete or attempt activity 9 The patient did not perform the activity before the current illness or injury 88 Not attempted due to Medical conditions or safety concerns Transfers (B, C, W/C) (FIM): 1 Scootin dependent x 2 with repositioning in bed to side lying left with pillow placement under bilateral LE's and behind back Weight Bearing Right Lower Extremity: Right Weight Bearing/Tolerated Left Lower Extremity: Left Weight Bearing/Tolerated Exercises Supine Ex: Ankle pumps, Heel Slides Supine Reps: 10 (PROM (ceased due to increase c/o pain)) Assessment Patient tolerates minimal activity due to pain. Per report, plan surgical intervention this week. PT Short Term Goals Short Term Goals Time Frame: Jul 20, 2019 Transfers (B,C,W/C) (FIM): 3 Gait (FIM): 1 Gait Distance Comment: 10' Gait Level of Assist: 4 Gait Assistive Device: FWW PT Plan Treatment/Plan Treatment Plan: Continue Plan of Care Treatment Plan: Bed Mobility, Concurrent Therapy, Education, Functional Activity Jesus Alberto, Functional Strength, Gait, Safety, Therapeutic Exercise, T adriana Treatment Duration: Jul 20, 2019 Frequency: 6 times per week Estimated Hrs Per Day: .25 hour per day Patient and/or Family Agrees t: Yes Time/GCodes Time In: 901 Time Out: 910 Total Billed Treatment Time: 9 Total Billed Treatment 1 visit FA 9 min JOSE CORADO PT Jul 18, 2019 09:14
[2019-07-18] MEDS: HYDROmorphone 2 MG/ML VIAL (DILAUDID) IV PRN ×4 (09:23→20:13)
--- NOTE | 2019-07-18 09:27 | Cardiology Progress Note ---
Subjective Date Seen by Provider: Jul 18, 2019 Time Seen by Provider: 09:26 Subjective/Events-last exam Patient is laying down in bed, still having significant amount of back pain and numbness in his arms Review of Systems General: No Chills, No Night Sweats; Fatigue, Malaise; No Appetite, No Other HEENT: No Head Aches, No Visual Changes, No Eye Pain, No Ear Pain, No Dysphasia, No Sinus Congestion, No Post Nasal Drip, No Sore Throat, No Other Pulmonary: No Dyspnea, No Cough, No Pleuritic Chest Pain, No Other Cardiovascular: No: Chest Pain, Palpitations, Orthopnea, Paroxysmal Noc. Dyspn ea, Edema, Lt Headedness, Other Objective-Cardiology Exam Last Set of Vital Signs Vital Signs 07/18/19 07:45 Temp 35.4 Pulse 67 Resp 18 B/P (MAP) 169/79 (109) Pulse Ox 97 O2 Delivery Room Air Capillary Refill : Less Than 3 Seconds I&O Intake and Output 07/18/19 00:00 Intake Total 2222 ml Output Total 1850 ml Balance 372 ml Intake Oral 1222 ml IV Total 1000 ml Output Urine Total 1850 ml # Voids 3 # Bowel Movements 1 General: Alert, Oriented X3, Cooperative HEENT: Atraumatic, PERRLA Neck: Supple, No JVD, No Thyromegaly Lungs: Clear to Auscultation, Normal Air Movement Heart: Normal S1, Normal S2, Other (Systolic murmur, S3) Abdomen: Normal Bowel Sounds, Soft, No Tenderness, No Hepatosplenomegaly, No Masses Extremities: No Clubbing, No Cyanosis, No Edema, Normal Pulses, No Tenderness/Swelling Skin: No Rashes, No Breakdown, No Significant Lesion Neuro: Normal Speech Psych/Mental Status: Mental Status NL, Mood NL A/P-Cardiology Admission Diagnosis Chest pain Coronary artery disease Herniated disc Hypertension Hyperlipidemia Assessment/Plan Chest pain, chronic stable angina, no acute EKG changes, better at this time, continue to monitor Coronary artery disease, history of CABG, multiple intervention the past, recent cardiac catheterization with drug-eluting stent deployment to the vein graft to the diagonal artery, had a patent GRACE to LAD with patent stent beyond the anastomosis in the LAD, small vessel disease otherwise done by Dr. Perez in [facility], currently aspirin and Plavix are on hold since July 16, [address] Bhatt recommendation, it was reported to me that surgery is urgent and has to be done during this admission Hypertension, monitor blood pressure Sinus bradycardia. Secondary to medication, monitor blood pressure Hyperlipidemia, maintained on statin Generalized weakness, lower and upper extremity weakness, cervical spinal stenosis with slipped disc, may require surgery. Dementia Patient is considered at high risk for perioperative cardiovascular complication, had a recent deployment of drug-eluting stent in the vein graft to the diagonal artery with residual haziness according to the report, will need a minimum of 3 months of dual antiplatelet therapy preferably 6 months to a year. Risk of bleeding complication is high, decision regarding the surgery, risk versus benefit is deferred to the surgeon Clinical Quality Measures DVT/VTE Risk/Contraindication: Risk Factor Score Per Nursin RFS Level Per Nursing on Admit: 4+=Very High CHRISTIANO DAVIS MD Jul 18, 2019 09:27
--- NOTE | 2019-07-18 09:55 | Cardiology Progress Note ---
Subjective Date Seen by Provider: Jul 18, 2019 Time Seen by Provider: 09:54 Subjective/Events-last exam Patient is in bed, complaining of leg and back pain. Denies any chest pain. Objective-Cardiology Exam Last Set of Vital Signs Vital Signs 07/18/19 07:45 Temp 35.4 Pulse 67 Resp 18 B/P (MAP) 169/79 (109) Pulse Ox 97 O2 Delivery Room Air Capillary Refill : Less Than 3 Seconds I&O Intake and Output 07/18/19 00:00 Intake Total 2222 ml Output Total 1850 ml Balance 372 ml Intake Oral 1222 ml IV Total 1000 ml Output Urine Total 1850 ml # Voids 3 # Bowel Movements 1 General: Alert, Oriented X3, Cooperative HEENT: Atraumatic, PERRLA Neck: Supple, No JVD, No Thyromegaly Lungs: Clear to Auscultation, Normal Air Movement Heart: Normal S1, Normal S2, Other (Systolic murmur, S3) Abdomen: Normal Bowel Sounds, Soft, No Tenderness, No Hepatosplenomegaly, No Masses Extremities: No Clubbing, No Cyanosis, No Edema, Normal Pulses, No Tenderness/Swelling Skin: No Rashes, No Breakdown, No Significant Lesion Neuro: Normal Speech Psych/Mental Status: Mental Status NL, Mood NL A/P-Cardiology Admission Diagnosis Chest pain Coronary artery disease Herniated disc Hypertension Hyperlipidemia Assessment/Plan Chest pain, chronic stable angina, no acute EKG changes, better at this time, continue to monitor Coronary artery disease, history of CABG, multiple intervention the past, recent cardiac catheterization with drug-eluting stent deployment to the vein graft to the diagonal artery, had a patent GRACE to LAD with patent stent beyond the anastomosis in the LAD, small vessel disease otherwise done by Dr. Perez in [facility], currently aspirin and Plavix are on hold since July 16, [address] Bhatt recommendation, it was reported to me that surgery is urgent and has to be done during this admission Hypertension, monitor blood pressure Sinus bradycardia. Secondary to medication, monitor blood pressure Hyperlipidemia, maintained on statin Generalized weakness, lower and upper extremity weakness, cervical spinal stenosis with slipped disc, planning for surgery on Thursday Dementia Patient is considered at high risk for perioperative cardiovascular complication, had a recent deployment of drug-eluting stent in the vein graft to the diagonal artery with residual haziness according to the report, will need a minimum of 3 months of dual antiplatelet therapy preferably 6 months to a year. Risk of bleeding complication is high, decision regarding the surgery, risk versus benefit is deferred to the surgeon Clinical Quality Measures DVT/VTE Risk/Contraindication: Risk Factor Score Per Nursin RFS Level Per Nursing on Admit: 4+=Very High DESIRE FULLER Jul 18, 2019 09:55
--- NOTE | 2019-07-18 09:58 | Pulmonary Consultation ---
SONIA ROSEN,MED STUDENT 07/18/19 0958: History of Present Illness History of Present Illness Date of Consultation 07/18/19 09:51 Time Seen by Provider: 09:51 Date of Admission Reason for Visit: chest pain, coronary artery disease History of Present Illness Patient is a 78y/o males that that present to the ED seven days ago for complaints of increasing weakness for the 3wks prior to admission. He says that he was seen at [facility] in [place] after falling onto his right hip and has been using a walker for the past 6months but since his fall he has had to have his son help him into a wheelchair. Patient states that he has increased blitateral weakness in this LE and hands. Kin any bowel or bladder incontinence. ROS admits to fever, chills, nausea, headaches, right sided abdominal pain, numbness in all extremities, tingling, and SOB. Denies: vomiting, chest pain Allergies and Home Medications Allergies Coded Allergies: codeine (Verified Adverse Reaction, Severe, VOMITING, 07/12/19) Uncoded Allergies: TAPE (Allergy, Severe, BLISTERS, 07/12/19) Home Medications Acetaminophen 650 Mg Tablet.er, 1,300 MG PO BID, (Reported) TAKES 2 (650MG) TABLETS Amlodipine Besylate 10 Mg Tablet, 10 MG PO HS, (Reported) Aspirin 81 Mg Tablet.dr, 81 MG PO DAILY, (Reported) Carvedilol 25 Mg Tab, 25 MG PO BID, (Reported) Cetirizine HCl 10 Mg Tablet, 10 MG PO DAILY, (Reported) Clopidogrel Bisulfate 75 Mg Tablet, 75 MG PO DAILY, (Reported) Docusate Calcium 240 Mg Capsule, 240 MG PO BID, (Reported) Donepezil HCl 10 Mg Tablet, 10 MG PO HS, (Reported) Hydrocodone/Acetaminophen 1 Each Tablet, 1 TAB PO Q6H PRN for PAIN-MODERATE, (Reported) Losartan/Hydrochlorothiazide 1 Each Tablet, 1 TAB PO DAILY, (Reported) LAST FILLED 07-04-19 #30 Magnesium Oxide 420 Mg Tablet, 420 MG PO DAILY, (Reported) Naproxen 500 Mg Tablet, 500 MG PO BID, (Reported) Pantoprazole Sodium 40 Mg Tablet.dr, 40 MG PO DAILY, (Reported) Ranitidine HCl 150 Mg Tablet, 150 MG PO BID, (Reported) Simethicone 125 Mg Tab.chew, 125 MG PO BID, (Reported) Terazosin HCl 5 Mg Capsule, 5 MG PO HS, (Reported) Tolterodine Tartrate 4 Mg Cap, 4 MG PO DAILY, (Reported) Past Sgcpypz-Xcnzif-Bekyns Hx Past Med/Social Hx: Reviewed Nursing Past Med/Soc Hx Patient Social History Alcohol Use: Past History Recreational Drug Use: No Smoking Status: Former Smoker Type Used: Cigarettes Recent Foreign Travel: No Contact w/Someone Who Travel: No Recent Infectious Disease Expo: No Recent Hopitalizations: No Physical Abuse: No Sexual Abuse: No Mistreated: No Fear: No Seasonal Allergies Seasonal Allergies: No Past Medical History Appendectomy, CABG, Gallbladder, Orthopedic Respiratory: No Cardiac: Yes (X6 STENTS TOTAL) Heart Attack, Hypertension Genitourinary: No Gastrointestinal: No Musculoskeletal: No Endocrine: Yes (HYPOGLYCEMIA LAST WEEK ) HEENT: No Cancer: No Psychosocial: No Integumentary: No Family Medical History Patient reports no known family medical history. Review of Systems Date Seen by Provider: Jul 18, 2019 Constitutional: Fever, Chills, Weakness Respiratory: Cough, Shortness of breath, Sputum (white, green, yellow, brown ) Cardiovascular: No: Chest Pain Gastrointestinal: Nausea, Abdominal Pain; No: Vomiting Sepsis Event Evaluation Height, Weight, BMI Height: '" Weight: lbs. oz. kg; 29.48 BMI Method: Exam Exam Vital Signs Date Time Temp Pulse Resp B/P (MAP) Pulse Ox O2 Delivery O2 Flow Rate FiO2 07/18/19 07:45 35.4 67 18 169/79 (109) 97 Room Air 07/18/19 07:00 46 07/18/19 03:23 36.2 57 20 129/60 (83) 94 Room Air 07/18/19 01:00 53 07/18/19 00:00 36.5 67 20 120/60 (80) 95 Room Air 07/17/19 20:00 Room Air 07/17/19 19:49 37.1 73 16 136/64 (88) 92 Room Air 07/17/19 19:00 64 07/17/19 15:59 36.8 61 18 149/68 (95) 94 Room Air 07/17/19 12:28 55 07/17/19 11:41 36.8 64 18 156/68 (97) 93 Room Air I & O 07/18/19 07:00 Intake Total 1272 ml Output Total 1950 ml Balance -678 ml Height & Weight Height: '" Weight: lbs. oz. kg; 29.48 BMI Method: General Appearance: No Apparent Distress, WD/WN, Anxious HEENT: PERRL/EOMI, Pharynx Normal Neck: Normal Inspection, Supple Respiratory: No Chest Non Tender; Lungs Clear, Normal Breath Sounds, No Accessory Muscle Use, No Respiratory Distress, Decreased Breath Sounds (diminished on the right ) Cardiovascular: Regular Rate, Rhythm, No Edema, No Gallop, No JVD, No Murmur Capillary Refill: Less Than 3 Seconds Peripheral Pulses: 2+ Dorsalis Pedis (R), 2+ Left Dors-Pedis (L), 2+ Radial Pulses (R), 2+ Radial Pulses (L) Gastrointestinal: soft, no organomegaly, no pulsatile mass, tenderness (RUQ and RLQ ) Extremity: Normal Inspection, No Pedal Edema, Calf Tenderness Neurologic/Psychiatric: Alert, Oriented x3, No Motor/Sensory Deficits, Normal Mood/Affect, Motor Weakness Skin: Normal Color, Warm/Dry Lymphatic: No Adenopathy Results Lab Laboratory Tests 07/17/19 08:30 Assessment/Plan Assessment/Plan productive cough -no hypoxia No signs of PE/ doubt PE. no CTA needed - IS - recent stenting of diagonal artery with drug-eluding stent by Dr. Cowan - Dr. Cowan is following - monitor Chest pain - cardiology following CAD -cardiology following HTN - cardiology following - management per primary hyperlipidemia - management per primary sinus bradycardia - cardiology following Generalized Weakness - Ortho consult - urgent surgery recommended by Dr. Bhatt - Plavix has been held since 07/16 Dementia DVT prophylaxis - SCDs - if surgery is scheduled hold blood thinner and restart following surgery TAN RODRIGUEZ DO 07/18/19 1516: History of Present Illness History of Present Illness History of Present Illness 78y/o males that that present to the ED seven days ago for complaints of increasing weakness for the 3wks prior to admission. He says that he was seen at [facility] in [place] after falling onto his right hip and has been using a walker for the past 6months but since his fall he has had to have his son help him into a wheelchair. Patient states that he has increased blitateral weakness in this LE and hands. Kin any bowel or bladder incontinence. Allergies and Home Medications Allergies Coded Allergies: codeine (Verified Adverse Reaction, Severe, VOMITING, 07/12/19) Uncoded Allergies: TAPE (Allergy, Severe, BLISTERS, 07/12/19) Home Medications Acetaminophen 650 Mg Tablet.er, 1,300 MG PO BID, (Reported) TAKES 2 (650MG) TABLETS Amlodipine Besylate 10 Mg Tablet, 10 MG PO HS, (Reported) Aspirin 81 Mg Tablet.dr, 81 MG PO DAILY, (Reported) Carvedilol 25 Mg Tab, 25 MG PO BID, (Reported) Cetirizine HCl 10 Mg Tablet, 10 MG PO DAILY, (Reported) Clopidogrel Bisulfate 75 Mg Tablet, 75 MG PO DAILY, (Reported) Docusate Calcium 240 Mg Capsule, 240 MG PO BID, (Reported) Donepezil HCl 10 Mg Tablet, 10 MG PO HS, (Reported) Hydrocodone/Acetaminophen 1 Each Tablet, 1 TAB PO Q6H PRN for PAIN-MODERATE, (Reported) Losartan/Hydrochlorothiazide 1 Each Tablet, 1 TAB PO DAILY, (Reported) LAST FILLED 07-04-19 #30 Magnesium Oxide 420 Mg Tablet, 420 MG PO DAILY, (Reported) Naproxen 500 Mg Tablet, 500 MG PO BID, (Reported) Pantoprazole Sodium 40 Mg Tablet.dr, 40 MG PO DAILY, (Reported) Ranitidine HCl 150 Mg Tablet, 150 MG PO BID, (Reported) Simethicone 125 Mg Tab.chew, 125 MG PO BID, (Reported) Terazosin HCl 5 Mg Capsule, 5 MG PO HS, (Reported) Tolterodine Tartrate 4 Mg Cap, 4 MG PO DAILY, (Reported) Past Ilcvoko-Pyegex-Ruiuoj Hx Family Medical History Patient reports no known family medical history. Review of Systems Time Seen by Provider: 14:06 Constitutional: Fever, Chills, Weakness Respiratory: Cough, Shortness of breath Exam Exam General Appearance: No Apparent Distress, WD/WN, Anxious, Chronically ill HEENT: PERRL/EOMI Respiratory: Decreased Breath Sounds (diminished on the right ) Cardiovascular: Regular Rate, Rhythm, No Edema, No Gallop, No JVD, No Murmur Extremity: Normal Inspection, No Pedal Edema Neurologic/Psychiatric: Alert, Oriented x3, No Motor/Sensory Deficits, Normal Mood/Affect Skin: Normal Color, Warm/Dry Lymphatic: No Adenopathy Assessment/Plan Assessment/Plan Cough -Start nebulizers QID -No hypoxia -IS -Monitor -No signs of PE/Doubt PE. NO CTA needed. CAD with hx of CABG -Cardiology following HTN Supervisory-Addendum Brief Verification & Attestation Participated in pt care: history Personally performed: exam, history Care discussed with: Medical Student Procedures: n/a Verification and Attestation of Medical Student E/M Service A medical student performed and documented this service in my presence. I reviewed and verified all information documented by the medical student and made modifications to such information, when appropriate. I personally performed the physical exam and medical decision making. Tan Rodriguez, Jul 26, 2019,14:08 SONIA ROSEN,MED STUDENT Jul 18, 2019 09:58 TAN RODRIGUEZ DO Jul 18, 2019 15:16
--- NOTE | 2019-07-18 10:08 | NUR ---
P having increased pain this AM. Pain rated at 9/10 after dilaudid administration. 10 mg Oxycodone given early per order from Dr. Ruvalcaba. Pt noted to have tingling in legs, Dr. Bhatt and Dr. Ruvalcaba aware of change in pt condition, no new orders at this time.
[2019-07-18 12:00] VITALS: BP 145/68
--- NOTE | 2019-07-18 13:10 | NUR ---
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 He shared his nerve pain has been difficult to manage, and he struggles with anxiety and fear related to his physical pain and apprehension about upcoming surgery. He told me and the nurse that he wants the doctor to talk to his daughter (Christa) about his surgery before it surgery takes place. He said it is difficult for him to communicate at times, and finds he "mixes things up." He then said, "When I talk to you, I don't mix things up." Pt described feeling increased calm and confidence in his keli when we visit. I offered prayer for his pain and upcoming procedure, and for his family (He described estranged relationship with his son and added "I still love him and I always will"). I told the pt that I would be on PTO tomorrow, but chaplains were available for support 18/05. He said "well maybe I will ask for one of the other pastors tomorrow when you are gone." I encouraged him to do so as he felt comfortable.
--- NOTE | 2019-07-18 14:38 | Occupational Ther Daily Note ---
OT Current Status-Daily Note Subjective Pt seen in bed, c/o 10/10 pain in back when moving, "lower" pain rating when not in motion. Pt agreeable to OT tx session. Mental Status/Objective Patient Orientation: Normal For Age Therapy Code Descriptions/Definitions Functional [place] Measure: 0=Not Assessed/NA 4=Minimal Assistance 1=Total Assistance 5=Supervision or Setup 2=Maximal Assistance 6=Modified [place] 3=Moderate Assistance 7=Complete [place] ADL-Treatment Grooming (FIM): 6 (completes face washing/ hair brushing in bed. ) Transfers (B, C, W/C) (FIM): 4 (Pt requires cues for rolling/ bed mobility ) Other Treatment Pt states he will have his surgery on Thursday of this week. Pt states he is glad that he will have it sooner, but will be "glad when it's over". Pt completes UE AROM exercises with skilled PROM for active stretch/ increased ROM for functional activities. Pt completes sponge squeezes BUE. Pt completes opening packaging and completing UE washing of face, arm pits, and janna area. Pt requires assist to wipe off BLE. Pt able to roll to bilateral sides with cues, pt requires assist to wipe bottom with wipe. Pt states he would like to remain i n position with pillow under R arm/ back. Pt left in bed, call light in reach, all needs met. Education OT Patient Education: Correct positioning, Exercise program, Modified ADL techniques, Purpose of tx/functional activities, Rehab process, Safety issues Teaching Recipient: Patient Teaching Methods: Demonstration, Discussion Response to Teaching: Verbalize Understanding, Return Demonstration OT Short Term Goals Short Term Goals Grooming(FIM): 6 (met) Lower Body Dressing(FIM): 2 Toileting(FIM): 3 Transfers (B,C,W/C) (FIM): 3 1=Demonstrate adherence to instructed precautions during ADL tasks. 2=Patient will verbalize/demonstrate understanding of assistive devices/modifications for ADL. 3=Patient will improve strength/tolerance for activity to enable patient to perform ADL's. OT Liquor Gallery Operator Goals Liquor Gallery Operator Goals Eating (FIM): 7 Grooming(FIM): 6 Bathing(FIM): 3 Upper Body Dressing(FIM): 4 Lower Body Dressing(FIM): 3 Toileting(FIM): 4 Transfers (B,C,W/C) (FIM): 4 Toilet/Commode Transfer(FIM): 4 Tub Transfer(FIM): 4 Shower Transfer(FIM): 4 Additional Goals: 1-Demonstrate ADL Tasks, 2-Verbalize Understanding, 3- ImproveStrength/Jesus Alberto 1=Demonstrate adherence to instructed precautions during ADL tasks. 2=Patient will verbalize/demonstrate understanding of assistive devices/modifications for ADL. 3=Patient will improve strength/tolerance for activity to enable patient to perform ADL's. OT Education/Plan Problem List/Assessment Assessment: Decreased Activ Tolerance, Decreased UE Strength, Impaired I ADL's, Impaired Self-Care Skills Discharge Recommendations Plan/Recommendations: Continue POC Treatment Plan/Plan of Care Treatment,Training & Education: Yes Patient would benefit from OT for education, treatment and training to promote independence in ADL's, mobility, safety and/or upper extremity function for ADL's. Plan of Care: ADL Retraining, Caregiver Training, Functional Mobility, UE Funct Exercise/Act Frequency: 5 times per week Estimated Hrs Per Day: .25 hour per day Agreement: Yes Rehab Potential: Fair Time/GCodes Start Time: 13:35 Stop Time: 13:52 Total Time Billed (hr/min): 18 Billed Treatment Time 1 ADL (18) GAYLE NOEL OTR Jul 18, 2019 14:38
--- NOTE | 2019-07-18 15:06 | Progress Note - Hospitalist ---
Subjective HPI/CC On Admission Date Seen by Provider: Jul 18, 2019 Time Seen by Provider: 14:57 weakness Subjective/Events-last exam Pt reports worsening pain and some tingling in his toes. I called and updated Dr Bhatt to this who reports he can do surgery on Thursday. I attempted to call his daughter per his request as well at 1500 with no answer. Objective Exam Vital Signs Vital Signs Date Time Temp Pulse Resp B/P (MAP) Pulse Ox O2 Delivery O2 Flow Rate FiO2 07/19/19 13:00 82 07/19/19 12:00 36.8 18 118/58 (78) 94 Room Air Capillary Refill : Less Than 3 Seconds General Appearance: No Apparent Distress, Chronically ill Respiratory: Lungs Clear, No Respiratory Distress Cardiovascular: Regular Rate, Rhythm, No Murmur Neurologic/Psychiatric: Alert, Oriented x3 Skin: Normal Color, Warm/Dry Results/Procedures Lab Laboratory Tests 07/19/19 04:47 Patient resulted labs reviewed. Assessment/Plan Assessment and Plan Assess & Plan/Chief Complaint Cervical spinal stenosis Slipped intravertebral disc Lumbar spinal stenosis Pain not controlled with current regimen Will increase Oxycodone PT/OT following Orthopedic surgery consulted, Dr. Bhatt planning for surgery (07/20) after ASA/Plavix held for 5 days (held on 07/16) Cardiology consulted, recent stent placement and coronary artery disease making patient a high risk surgical candidate - I discussed again with patient that this is a high risk surgery given recent stent placement and history of CAD s/p CABG, per check out from Dr Carmona: Dr Bhatt has stated surgery is urgent and thus cannot be delayed for months COPD - Pulm consulted, appreciate recs - MAT protocol Coronary artery disease -ASA and Plavix held for surgical intervention, per Dr. Bhatt HTN -Stable, continue home meds Diagnosis/Problems Diagnosis/Problems (1) CAD (coronary artery disease) Qualifiers: Coronary Disease-Associated Artery/Lesion type: bypass graft [place] vs. transplanted heart: [place] heart Associated angina: without angina Qualified Codes: I25.810 - Atherosclerosis of coronary artery bypass graft(s) without angina pectoris (2) Essential (primary) hypertension Status: Chronic (3) Neuroforaminal stenosis of spine Status: Acute (4) Slipped intervertebral disc Status: Acute Qualifiers: Spinal region: lumbar Qualified Codes: M51.26 - Other intervertebral disc displacement, lumbar region (5) Lumbar spinal stenosis Status: Acute Qualifiers: Neurogenic claudication status: unspecified Qualified Codes: M48.061 - Spinal stenosis, lumbar region without neurogenic claudication (6) Cervical spinal stenosis Status: Acute (7) Generalized weakness Status: Acute Clinical Quality Measures DVT/VTE Risk/Contraindication: Risk Factor Score Per Nursin RFS Level Per Nursing on Admit: 4+=Very High KIZZY MEEKS MD Jul 18, 2019 15:06
[2019-07-18] MEDS: RT-ALBUTEROL/IPRATROPIUM 3 ML (DUONEB) VIAL INH SCH ×2 (16:19→18:49)
[2019-07-18 16:25] VITALS: BP 148/91
[2019-07-18 20:14] VITALS: BP 112/56
[2019-07-18] MEDS: TERAZOSIN 5 MG (HYTRIN) CAPSULE PO SCH (20:17)
[2019-07-18] MEDS: amLODIPine 10 MG (NORVASC) TAB PO SCH (20:17)
[2019-07-18] MEDS: DONEPEZIL 10 MG (ARICEPT) TAB PO SCH (20:17)
--- NOTE | 2019-07-18 20:49 | Consultation ---
History of Present Illness History of Present Illness Patient Consulted On(lauren/time) 07/18/19 20:42 Date Seen by Provider: Jul 17, 2019 Time Seen by Provider: 00:00 Reason for Visit: generalized weakness History of Present Illness Patient a pleasant 78 y/o WM that presented to the [facility] with CC of increasing generalized weakness of the LEs. Associated complaints include radicul ar/claudicatory symptoms of the LEs, R>L, including radiating pain, numbness and paresthesias. He also admits to a h/o frequent loss of balance and falls. He says the symptoms have been getting progressively worse over the last 6-8 weeks or so. He denies much associated neck/back pain. He has no additional complaints. Allergies and Home Medications Allergies Coded Allergies: codeine (Verified Adverse Reaction, Severe, VOMITING, 07/12/19) Uncoded Allergies: TAPE (Allergy, Severe, BLISTERS, 07/12/19) Home Medications Acetaminophen 650 Mg Tablet.er, 1,300 MG PO BID, (Reported) TAKES 2 (650MG) TABLETS Amlodipine Besylate 10 Mg Tablet, 10 MG PO HS, (Reported) Aspirin 81 Mg Tablet.dr, 81 MG PO DAILY, (Reported) Carvedilol 25 Mg Tab, 25 MG PO BID, (Reported) Cetirizine HCl 10 Mg Tablet, 10 MG PO DAILY, (Reported) Clopidogrel Bisulfate 75 Mg Tablet, 75 MG PO DAILY, (Reported) Docusate Calcium 240 Mg Capsule, 240 MG PO BID, (Reported) Donepezil HCl 10 Mg Tablet, 10 MG PO HS, (Reported) Hydrocodone/Acetaminophen 1 Each Tablet, 1 TAB PO Q6H PRN for PAIN-MODERATE, (Reported) Losartan/Hydrochlorothiazide 1 Each Tablet, 1 TAB PO DAILY, (Reported) LAST FILLED 07-04-19 #30 Magnesium Oxide 420 Mg Tablet, 420 MG PO DAILY, (Reported) Naproxen 500 Mg Tablet, 500 MG PO BID, (Reported) Pantoprazole Sodium 40 Mg Tablet.dr, 40 MG PO DAILY, (Reported) Ranitidine HCl 150 Mg Tablet, 150 MG PO BID, (Reported) Simethicone 125 Mg Tab.chew, 125 MG PO BID, (Reported) Terazosin HCl 5 Mg Capsule, 5 MG PO HS, (Reported) Tolterodine Tartrate 4 Mg Cap, 4 MG PO DAILY, (Reported) Patient Home Medication List Home Medication List Reviewed: Yes Past Axpscgb-Eqakwz-Dlluzz Hx Past Med/Social Hx: Reviewed Nursing Past Med/Soc Hx Patient Social History Alcohol Use: Past History Recreational Drug Use: No Smoking Status: Former Smoker Type Used: Cigarettes Recent Foreign Travel: No Contact w/Someone Who Travel: No Recent Infectious Disease Expo: No Recent Hopitalizations: No Physical Abuse: No Sexual Abuse: No Mistreated: No Fear: No Seasonal Allergies Seasonal Allergies: No Past Medical History Appendectomy, CABG, Gallbladder, Orthopedic Respiratory: No Cardiac: Yes (X6 STENTS TOTAL) Heart Attack, Hypertension Genitourinary: No Gastrointestinal: No Musculoskeletal: No Endocrine: Yes (HYPOGLYCEMIA LAST WEEK ) HEENT: No Cancer: No Psychosocial: No Integumentary: No Family Medical History Patient reports no known family medical history. Review of Systems-General Constitutional: no symptoms reported EENTM: no symptoms reported Respiratory: no symptoms reported Cardiovascular: no symptoms reported Gastrointestinal: no symptoms reported Genitourinary: no symptoms reported Musculoskeletal: muscle weakness Skin: no symptoms reported Psychiatric/Neurological: No Symptoms Reported Physical Exam-General Problems Physical Exam Vital Signs Vital Signs - First Documented 07/12/19 17:28 Temp 36.3 Pulse 78 Resp 16 B/P (MAP) 131/88 (102) Pulse Ox 95 O2 Delivery Room Air Capillary Refill : Less Than 3 Seconds General Appearance: WD/WN, no apparent distress Eyes: Bilateral Eye Normal Inspection, Bilateral Eye PERRL, Bilateral Eye EOMI HEENT: PERRL/EOMI, normal ENT inspection Neck: non-tender, full range of motion, supple, normal inspection Respiratory: no respiratory distress, no accessory muscle use Cardiovascular: normal peripheral pulses, regular rate, rhythm Peripheral Pulses: 2+ Dorsalis Pedis (R), 2+ Left Dors-Pedis (L) Gastrointestinal: non tender, soft, no organomegaly Extremities: normal range of motion, no pedal edema, no calf tenderness, normal capillary refill Neurologic/Psychiatric: epidemiology investigator II-XII nml as tested, alert, normal mood/affect, oriented x 3, abnormal gait, motor weakness, other (3/5 motor function Q/H/TA RLE, 4/5 Q/H/TA LLE, SLT all dermatomes b/l LEs) Reflexes: 4+ Bicep (R), 4+ Bicep (L), 4+ Tricep (R), 4+ Tricep (L), 4+ Knee (R), 4+ Knee (L), 4+ Ankle (R), 4+ Ankle (L) Assessment/Plan Assessment/Plan Admission Diagnosis/Plan A/P: 78 y/o male with about 6-8 weeks of progressive motor weakness/radicular/claudicatory symptoms of the LEs, R>L Also c/o frequent loss of balance/falls, loss of coordination. MRI C-spine demonstrates a stable previous C5-6 fusion and severe adjacent level stenosis C4-5. 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 No current clinical evidence of cauda equina syndrome. Given the clinical history which includes a progressive neurologic deficit of the LEs, surgical decompression is indicated. Would prefer to proceed with surgery TIANA. I counseled the patient extensively on the risks associated with proceeding with surgery prior to a plavix holiday less than 7 days, including possible epidural hematoma and potential paralysis as well as potentially serious wound complications. He was also counseled on the cardiac risk associated with holding the plavix. The patient has accepted the risk of potential catastrophic cardiac event secondary to holding his plavix. We will plan for surgical decompression of his lumbar spine tomorrow. NPO p MN tonight. We will then monitor his progress closely. He will certainly need surgical decompression of his cervical spine as well which will be planned according to his progress after lumbar decompression. I discussed the treatment plan with the patient in detail. All of his questions have been addressed and answered to his satisfaction. He agrees with the plan and has given informed written consent to proceed as planned. Will plan to allow resumption of plavix on POD 3. Vitals Signs Source: Temporal, Heart Rate: 84, Respiratory Rate: 20, BP: 112/56, Pulse Oximetry: 93, Weight: 90.5 Clinical Quality Measures DVT/VTE Risk/Contraindication: Risk Factor Score Per Nursin RFS Level Per Nursing on Admit: 4+=Very High ADAM HDEZ DO Jul 18, 2019 20:49
[2019-07-18] MEDS: MELATONIN 3 MG TABLET PO PRN (22:59)
[2019-07-19] VITALS (22 sets, daily range): BP systolic 104–158; BP diastolic 58–76
[2019-07-19] MEDS: HYDROmorphone 2 MG/ML VIAL (DILAUDID) IV PRN ×4 (00:58→11:07)
[2019-07-19 05:13] LABS: HEMOGLOBIN 12.5 G/DL (13.3-17.7); MEAN PLATELET VOLUME 9.8 FL (7.4-10.4); WHITE BLOOD COUNT 11.3 10^3/uL (4.3-11.0)
[2019-07-19 05:19] LABS: PROTHROMBIN TIME PATIENT 14.1 SEC (12.2-14.7)
[2019-07-19 05:27] LABS: BUN/CREATININE RATIO 24; CALCIUM 8.9 MG/DL (8.5-10.1); CARBON DIOXIDE 23 MMOL/L (21-32); CHLORIDE 108 MMOL/L (98-107); CREATININE SERUM 0.84 MG/DL (0.60-1.30); GFR ESTIMATED > 60; GLUCOSE 145 MG/DL (70-105); POTASSIUM 3.5 MMOL/L (3.6-5.0); SODIUM 141 MMOL/L (135-145)
[2019-07-19] MEDS: CATHETER FLUSH 10 ML SYR IV SCH ×3 (06:00→20:41)
[2019-07-19] MEDS: DEXAMETHASONE 4 MG TAB (DECADRON) PO SCH ×4 (06:15→23:41)
--- NOTE | 2019-07-19 06:15 | NUR ---
DR CLARKE NOTIFIED THAT PT HAD NOT VOIDED SINCE 2299. HE GAVE THIS RN ORDER FOR HERMAN CATH. STERILE TECHNIQUE PERFORMED, 18 FR, PT TOLERATED WELL.
[2019-07-19] MEDS: RT-ALBUTEROL/IPRATROPIUM 3 ML (DUONEB) VIAL INH SCH ×4 (07:01→19:19)
--- NOTE | 2019-07-19 07:50 | Cardiology Progress Note ---
Subjective Date Seen by Provider: Jul 19, 2019 Time Seen by Provider: 07:49 Subjective/Events-last exam Patient is laying down in bed, still having weakness and pain in his back and no chest pain Review of Systems General: No Chills, No Night Sweats, No Fatigue, No Malaise, No Appetite, No Other HEENT: No Head Aches, No Visual Changes, No Eye Pain, No Ear Pain, No D ysphasia, No Sinus Congestion, No Post Nasal Drip, No Sore Throat, No Other Pulmonary: No Dyspnea, No Cough, No Pleuritic Chest Pain, No Other Cardiovascular: No: Chest Pain, Palpitations, Orthopnea, Paroxysmal Noc. Dyspnea, Edema, Lt Headedness, Other Objective-Cardiology Exam Last Set of Vital Signs Vital Signs 07/19/19 07/19/19 03:45 07:01 Temp 36.4 Pulse 72 Resp 20 B/P (MAP) 108/71 (83) Pulse Ox 94 O2 Delivery Room Air Capillary Refill : Less Than 3 Seconds I&O Intake and Output 07/19/19 00:00 Intake Total 1510 ml Output Total 1050 ml Balance 460 ml Intake Oral 1510 ml Output Urine Total 1050 ml # Voids 2 General: Alert, Oriented X3, Cooperative HEENT: Atraumatic, PERRLA Neck: Supple, No JVD, No Thyromegaly Lungs: Clear to Auscultation, Normal Air Movement Heart: Normal S1, Normal S2, Other (Systolic murmur, S3) Abdomen: Normal Bowel Sounds, Soft, No Tenderness, No Hepatosplenomegaly, No Masses Extremities: No Clubbing, No Cyanosis, No Edema, Normal Pulses, No Tenderness/Swelling Skin: No Rashes, No Breakdown, No Significant Lesion Neuro: Normal Speech Psych/Mental Status: Mental Status NL, Mood NL Results Lab Laboratory Tests 07/19/19 04:47 A/P-Cardiology Admission Diagnosis Chest pain Coronary artery disease Herniated disc Hypertension Hyperlipidemia Assessment/Plan Chest pain, chronic stable angina, no acute EKG changes, better at this time, c ontinue to monitor Coronary artery disease, history of CABG, multiple intervention the past, recent cardiac catheterization with drug-eluting stent deployment to the vein graft to the diagonal artery, had a patent GRACE to LAD with patent stent beyond the anastomosis in the LAD, small vessel disease otherwise done by Dr. Perez in [facility], currently off aspirin and Plavix. Hypertension, monitor blood pressure Sinus bradycardia. Secondary to medication, monitor blood pressure Hyperlipidemia, maintained on statin Generalized weakness, lower and upper extremity weakness, cervical spinal stenosis with slipped disc, seen by Dr. Bhatt, possible surgery today Dementia Patient is considered at high risk for perioperative cardiovascular complication, had a recent deployment of drug-eluting stent in the vein graft to the diagonal artery with residual haziness according to the report, will need a minimum of 3 months of dual antiplatelet therapy preferably 6 months to a year. Risk of bleeding complication is high, decision regarding the surgery, risk versus benefit is deferred to the surgeon Clinical Quality Measures DVT/VTE Risk/Contraindication: Risk Factor Score Per Nursin RFS Level Per Nursing on Admit: 4+=Very High CHRISTIANO DAVIS MD Jul 19, 2019 07:50
--- NOTE | 2019-07-19 07:59 | Physical Therapy Progress Note ---
Therapy Progress Note Patient to have lumbar surgery on this date. PT will reassess in JOSE Walker PT Jul 19, 2019 07:59
[2019-07-19] MEDS: TOLTERODINE LA 4 MG (DETROL) CAP PO SCH (09:18)
[2019-07-19] MEDS: LOSARTAN 50 MG (COZAAR) TAB PO SCH (09:18)
[2019-07-19] MEDS: PANTOPRAZOLE 40 MG (PROTONIX) TAB PO SCH (09:18)
[2019-07-19] MEDS: CARVEDILOL 3.125 MG (COREG) TABLET PO SCH ×2 (09:18→20:41)
[2019-07-19] MEDS: LORATADINE (CLARITIN) 10 MG TAB PO SCH (09:18)
[2019-07-19] MEDS: SENNA W/DOCUSATE (SENOKOT S) TABLET PO SCH ×2 (09:19→20:40)
[2019-07-19] MEDS: DOCUSATE CALCIUM 240 MG (SURFAK) CAP PO SCH ×2 (09:19→20:40)
--- NOTE | 2019-07-19 10:50 | Occupational Ther Daily Note ---
OT Current Status-Daily Note Subjective Pt seen in bed, laying supine. Pt states 10/10 pain when in motion or in bad position. Pt states minimal pain in current position. Pt agreeable to OT tx session. Mental Status/Objective Patient Orientation: Normal For Age Therapy Code Descriptions/Definitions Functional [place] Measure: 0=Not Assessed/NA 4=Minimal Assistance 1=Total Assistance 5=Supervision or Setup 2=Maximal Assistance 6=Modified [place] 3=Moderate Assistance 7=Complete [place] Other Treatment Pt states he is "worn out" as pt's bed was just changed. Pt states teeth are shantanu an and body was just washed. Pt states surgery planned for today's date- states family will be present within the hour. Pt states he "feels good" about surgery. Pt agreeable to exercises. Pt completes AROM exercises with BUE while in bed. PROM performed to pt's tolerance. Pt states tightness in bilateral pectoral muscles, skilled muscle inhibition completed on bilateral pectoral muscles for increased functional ROM. Pt completes elbow flexion/shoulder touches (5 per side, L side unable to reach shoulder), wrist extension/ flexion (10 per side), and gripping exercises with small hand sponge. Pt states numbness in R index finger, pt completes individual DIP exercises with PIP joint stabilized. Pt states he rubs finger when numb, pt completes additional hand sponge exercises to increase blood flow to whole hand. Pt positioned with pillows on either side, decreased pain/ relief noted by pt. Pt left with call light in reach, all needs met. Education OT Patient Education: Correct positioning, Exercise program, Home exercise program, Rehab process, Safety issues Teaching Recipient: Patient Teaching Methods: Demonstration, Discussion Response to Teaching: Verbalize Understanding, Return Demonstration OT Short Term Goals Short Term Goals Grooming(FIM): 6 (met) Lower Body Dressing(FIM): 2 Toileting(FIM): 3 Transfers (B,C,W/C) (FIM): 3 1=Demonstrate adherence to instructed precautions during ADL tasks. 2=Patient will verbalize/demonstrate understanding of assistive devices/modifications for ADL. 3=Patient will improve strength/tolerance for activity to enable patient to perform ADL's. OT Jail Goals Jewelry Store Manager Goals Eating (FIM): 7 Grooming(FIM): 6 Bathing(FIM): 3 Upper Body Dressing(FIM): 4 Lower Body Dressing(FIM): 3 Toileting(FIM): 4 Transfers (B,C,W/C) (FIM): 4 Toilet/Commode Transfer(FIM): 4 Tub Transfer(FIM): 4 Shower Transfer(FIM): 4 Additional Goals: 1-Demonstrate ADL Tasks, 2-Verbalize Understanding, 3-ImproveStrength/Jesus Alberto 1=Demonstrate adherence to instructed precautions during ADL tasks. 2=Patient will verbalize/demonstrate understanding of assistive devices/modifications for ADL. 3=Patient will improve strength/tolerance for activity to enable patient to perform ADL's. OT Education/Plan Problem List/Assessment Assessment: Decreased Activ Tolerance, Decreased UE Strength, Impaired I ADL's, Impaired Self-Care Skills, Restricted Funct UE ROM Discharge Recommendations Plan/Recommendations: Continue POC Treatment Plan/Plan of Care Treatment,Training & Education: Yes Patient would benefit from OT for education, treatment and training to promote independence in ADL's, mobility, safety and/or upper extremity function for ADL's. Plan of Care: ADL Retraining, Caregiver Training, Functional Mobility, UE Funct Exercise/Act Frequency: 5 times per week Estimated Hrs Per Day: .25 hour per day Agreement: Yes Rehab Potential: Fair Time/GCodes Start Time: 10:20 Stop Time: 10:32 Total Time Billed (hr/min): 12 Billed Treatment Time 1 ADL (12) GAYLE NOEL OTR Jul 19, 2019 10:50
[2019-07-19] MEDS ORDERED: SEVOFLURANE (ULTANE) 15 ML INHAL SOLN ONE ×13 (12:13→16:24)
[2019-07-19] MEDS ORDERED: proPOfol 200 MG/20 ML (DIPRIVAN) VIAL IV ONE (12:13)
[2019-07-19] MEDS ORDERED: DEXAMETHASONE 10 MG/ML (DECADRON) 1 ML VIAL ONE (12:13)
[2019-07-19] MEDS ORDERED: ONDANSETRON 4 MG/2 ML (SDV) Z0FRAN ONE (12:13)
[2019-07-19] MEDS ORDERED: LIDOCAINE PF 2% 5 ML (XYLOCAINE) VIAL ONE (12:13)
[2019-07-19] MEDS ORDERED: GENTAMICIN 40 MG/ML 2 ML INJ SDV ONE (12:15)
[2019-07-19] MEDS ORDERED: fentaNYL INJECTION 100 MCG/2 ML AMP ONE (12:17)
[2019-07-19] MEDS ORDERED: BUP/EPI 0.25% 1:200,000 (MARCAINE) 10 ML VIAL IJ ONE ×2 (12:18→12:21)
[2019-07-19] MEDS ORDERED: VANCOMYCIN 1000 MG/VIAL ONE (12:21)
[2019-07-19] MEDS ORDERED: SUCCINYLCHOLINE INJ 100 MG/5 ML SYR ONE (12:38)
[2019-07-19] MEDS ORDERED: DEXMEDETOMIDINE 200 MCG/2 ML (PRECEDEX) VIAL IV ONE (12:38)
[2019-07-19] MEDS ORDERED: NS (IVPB) 100 ML ONE (12:38)
[2019-07-19] MEDS ORDERED: ceFAZolin INJECTION 2,000 MG ONE (13:00)
--- NOTE | 2019-07-19 13:28 | Progress Note - Hospitalist ---
Subjective HPI/CC On Admission Date Seen by Provider: Jul 19, 2019 Time Seen by Provider: 12:15 weakness Subjective/Events-last exam Pt reports feeling well. Ready for surgery. No questions. Objective Exam Vital Signs Vital Signs Date Time Temp Pulse Resp B/P (MAP) Pulse Ox O2 Delivery O2 Flow Rate FiO2 07/19/19 13:00 82 07/19/19 12:00 36.8 18 118/58 (78) 94 Room Air Capillary Refill : Less Than 3 Seconds General Appearance: No Apparent Distress, WD/WN Respiratory: Lungs Clear, No Respiratory Distress Cardiovascular: Regular Rate, Rhythm, No Murmur Gastrointestinal: Normal Bowel Sounds, Non Tender, Soft Neurologic/Psychiatric: Alert, Oriented x3 Results/Procedures Lab Laboratory Tests 07/19/19 04:47 Patient resulted labs reviewed. Assessment/Plan Assessment and Plan Assess & Plan/Chief Complaint Cervical spinal stenosis Slipped intravertebral disc Lumbar spinal stenosis Pain well controlled this morning PT/OT following Orthopedic surgery consulted, Dr. Bhatt planning for surgery today Cardiology consulted, recent stent placement and coronary artery disease making patient a high risk surgical candidate- defer final risk/benefit determination to surgeon COPD - Pulm consulted, appreciate recs - MAT protocol Coronary artery disease -ASA and Plavix held for surgical intervention, per Dr. Bhatt HTN -Stable, continue home meds Diagnosis/Problems Diagnosis/Problems (1) CAD (coronary artery disease) Qualifiers: Coronary Disease-Associated Artery/Lesion type: bypass graft [place] vs. transplanted heart: [place] heart Associated angina: without angina Qualified Codes: I25.810 - Atherosclerosis of coronary artery bypass graft(s) without angina pectoris (2) Essential (primary) hypertension Status: Chronic (3) Neuroforaminal stenosis of spine Status: Acute (4) Slipped intervertebral disc Status: Acute Qualifiers: Spinal region: lumbar Qualified Codes: M51.26 - Other intervertebral disc displacement, lumbar region (5) Lumbar spinal stenosis Status: Acute Qualifiers: Neurogenic claudication status: unspecified Qualified Codes: M48.061 - Spinal stenosis, lumbar region without neurogenic claudication (6) Cervical spinal stenosis Status: Acute (7) Generalized weakness Status: Acute Clinical Quality Measures DVT/VTE Risk/Contraindication: Risk Factor Score Per Nursin RFS Level Per Nursing on Admit: 4+=Very High KIZZY MEEKS MD Jul 19, 2019 13:28
[2019-07-19] MEDS ORDERED: ATROPINE INJ 0.4 MG/ML SDV ONE (16:25)
[2019-07-19] MEDS ORDERED: NEOSTIGMINE 3 MG/3 ML VIAL ONE (16:25)
--- NOTE | 2019-07-19 16:35 | Progress Note-Post Operative ---
Post-Operative Progess Note Surgeon (s)/Derrick Car Operator (s) Surgeon ADAM HDEZ DO Derrick Car Operator: Adam Marlow PA-C Pre-Operative Diagnosis Lumbar stenosis L2-3 with herniated nucleus pulposus Post-Operative Diagnosis Same Procedure & Operative Findings Date of Procedure 07/19/19 Procedure Performed/Findings L2-3 laminectomy/medial facetectomies/excision of HNP Findings: severe central/lateral recess stenosis L2-3 with large Right paracentral HNP/extruded fragment Anesthesia Type GETA Estimated Blood Loss Estimated blood loss (mL): 100 Specimens/Packing Specimens Removed None Packing: No packing Complications: incidental durotomy with repair Drains: medium hemovac deep to fascia on gravity suction only ADAM HDEZ DO Jul 19, 2019 16:35
[2019-07-19] MEDS ORDERED: ONDANSETRON 4 MG/2 ML (SDV) Z0FRAN IVP PRN (16:45)
[2019-07-19] MEDS ORDERED: PROMETHAZINE 25 MG (PHENERGAN) TAB PO PRN (16:45)
[2019-07-19] MEDS ORDERED: HYDROmorphone 2 MG/ML VIAL (DILAUDID) IV ONE (16:45)
[2019-07-19] MEDS ORDERED: METOCLOPRAMIDE INJ 10 MG/2 ML (REGLAN) IV PRN (16:45)
[2019-07-19] MEDS ORDERED: morphine INJ 10 MG/ML 1ML (SYR OR VIAL) IVP ONE (16:45)
[2019-07-19] MEDS ORDERED: ONDANSETRON 4 MG/2 ML (SDV) Z0FRAN IV PRN (16:45)
[2019-07-19] MEDS ORDERED: METOCLOPRAMIDE 10 MG (REGLAN) TAB PO PRN (16:45)
[2019-07-19] MEDS ORDERED: GLYCOPYRROLATE 0.2 MG/ML (ROBINUL) 2 ML VIAL ONE (16:54)
--- NOTE | 2019-07-19 17:50 | NUR ---
Report received from USHA Harley. pt back to room 431.
[2019-07-19] MEDS: amLODIPine 10 MG (NORVASC) TAB PO SCH (20:40)
[2019-07-19] MEDS: TERAZOSIN 5 MG (HYTRIN) CAPSULE PO SCH (20:40)
[2019-07-19] MEDS: ceFAZolin 2 GM/NS 50 ML IVPB IV SCH (20:40)
[2019-07-19] MEDS: DONEPEZIL 10 MG (ARICEPT) TAB PO SCH (20:40)
[2019-07-19] MEDS ORDERED: ceFAZolin INJECTION 2,000 MG in WATER (STERILE) FOR INJECTION 10 ML IV SCH (20:45)
[2019-07-20 00:23] VITALS: BP 151/72
[2019-07-20] MEDS: ceFAZolin 2 GM/NS 50 ML IVPB IV SCH ×2 (03:49→11:32)
[2019-07-20] MEDS: CATHETER FLUSH 10 ML SYR IV SCH ×3 (03:50→20:37)
[2019-07-20 03:57] VITALS: BP 148/69
[2019-07-20] MEDS: HYDROmorphone 2 MG/ML VIAL (DILAUDID) IV PRN (03:57)
[2019-07-20] MEDS: HYDROcodone/APAP 5 MG/325 MG (LORTAB) TAB PO PRN ×2 (05:41→10:19)
[2019-07-20] MEDS: DEXAMETHASONE 4 MG TAB (DECADRON) PO SCH ×3 (05:42→17:33)
[2019-07-20] MEDS: RT-ALBUTEROL/IPRATROPIUM 3 ML (DUONEB) VIAL INH SCH ×4 (06:43→19:29)
--- NOTE | 2019-07-20 07:41 | Anesthesia-General Post-Op ---
General Patient Condition Mental Status/LOC: Same as Preop Cardiovascular: Satisfactory Nausea/Vomiting: Absent Respiratory: Satisfactory Pain: Controlled Complications: Absent Post Op Complications Complications None Follow Up Care/Instructions Patient Instructions None needed. Anesthesia/Patient Condition Patient Condition Patient is doing well, no complaints, stable vital signs, no apparent adverse anesthesia problems. No complications reported per nursing. BABAK OCHOA CRNA Jul 20, 2019 07:41
[2019-07-20 08:00] VITALS: BP 97/56
[2019-07-20] MEDS: TOLTERODINE LA 4 MG (DETROL) CAP PO SCH (08:31)
[2019-07-20] MEDS: DOCUSATE CALCIUM 240 MG (SURFAK) CAP PO SCH ×2 (08:31→20:30)
[2019-07-20] MEDS: SENNA W/DOCUSATE (SENOKOT S) TABLET PO SCH ×2 (08:32→20:31)
[2019-07-20] MEDS: CARVEDILOL 3.125 MG (COREG) TABLET PO SCH ×2 (08:32→20:31)
[2019-07-20] MEDS: PANTOPRAZOLE 40 MG (PROTONIX) TAB PO SCH (08:32)
[2019-07-20] MEDS: LORATADINE (CLARITIN) 10 MG TAB PO SCH (08:32)
[2019-07-20] MEDS: LOSARTAN 50 MG (COZAAR) TAB PO SCH (08:32)
--- NOTE | 2019-07-20 09:24 | Progress Note - Hospitalist ---
Subjective HPI/CC On Admission Date Seen by Provider: Jul 20, 2019 Time Seen by Provider: 09:22 weakness Subjective/Events-last exam Pt reports doing well. Having some back pain but otherwise no complaints. Still on strict bedrest 2/2 durotomy. Objective Exam Vital Signs Vital Signs Date Time Temp Pulse Resp B/P (MAP) Pulse Ox O2 Delivery O2 Flow Rate FiO2 07/20/19 20:02 37.4 77 20 118/58 (78) 97 Nasal Cannula 3.00 Capillary Refill : Less Than 3 SecondsLess Than 3 Seconds General Appearance: No Apparent Distress, WD/WN Respiratory: Lungs Clear, No Respiratory Distress Cardiovascular: Regular Rate, Rhythm, No Murmur Gastrointestinal: Normal Bowel Sounds, Non Tender, Soft Neurologic/Psychiatric: Alert, Oriented x3 Results/Procedures Lab Patient resulted labs reviewed. Assessment/Plan Assessment and Plan Assess & Plan/Chief Complaint Cervical spinal stenosis Slipped intravertebral disc Lumbar spinal stenosis - POD#1 s/p L2-3 laminectomy/medial facetectomies/excision of HNP Pain controlled with current regimen PT/OT following Orthopedic surgery consulted Cardiology consulted, recent stent placement and coronary artery disease making patient a high risk surgical candidate COPD - Pulm consulted, appreciate recs - MAT protocol Coronary artery disease -ASA and Plavix held for surgical intervention, per Dr. Bhatt Can resume on POD #3 HTN -Stable, continue home meds Diagnosis/Problems Diagnosis/Problems (1) CAD (coronary artery disease) Qualifiers: Coronary Disease-Associated Artery/Lesion type: bypass graft [place] vs. transplanted heart: [place] heart Associated angina: without angina Qualified Codes: I25.810 - Atherosclerosis of coronary artery bypass graft(s) without angina pectoris (2) Essential (primary) hypertension Status: Chronic (3) Neuroforaminal stenosis of spine Status: Acute (4) Slipped intervertebral disc Status: Acute Qualifiers: Spinal region: lumbar Qualified Codes: M51.26 - Other intervertebral disc displacement, lumbar region (5) Lumbar spinal stenosis Status: Acute Qualifiers: Neurogenic claudication status: unspecified Qualified Codes: M48.061 - Spinal stenosis, lumbar region without neurogenic claudication (6) Cervical spinal stenosis Status: Acute (7) Generalized weakness Status: Acute Clinical Quality Measures DVT/VTE Risk/Contraindication: Risk Factor Score Per Nursin RFS Level Per Nursing on Admit: 4+=Very High KIZZY MEEKS MD Jul 20, 2019 09:24
[2019-07-20] MEDS: CYCLOBENZAPRINE 10 MG (FLEXERIL) TAB PO PRN (09:37)
--- NOTE | 2019-07-20 10:31 | Cardiology Progress Note ---
Subjective Date Seen by Provider: Jul 20, 2019 Time Seen by Provider: 10:28 Subjective/Events-last exam Patient in bed, complaining of back pain, denies any chest pain. Objective-Cardiology Exam Last Set of Vital Signs Vital Signs 07/20/19 12:00 Temp 36.7 Pulse 75 Resp 22 B/P (MAP) 113/65 (81) Pulse Ox 96 O2 Delivery Nasal Cannula O2 Flow Rate 3.00 Capillary Refill : Less Than 3 SecondsLess Than 3 Seconds I&O Intake and Output 07/20/19 00:00 Intake Total 300 ml Output Total 1255 ml Balance -955 ml Intake Oral 250 ml IV Total 50 ml Output Urine Total 1225 ml Drainage Total 30 ml General: Alert, Oriented X3, Cooperative HEENT: Atraumatic, PERRLA Neck: Supple, No JVD, No Thyromegaly Lungs: Clear to Auscultation, Normal Air Movement Heart: Normal S1, Normal S2, Other (Systolic murmur, S3) Abdomen: Normal Bowel Sounds, Soft, No Tenderness, No Hepatosplenomegaly, No Masses Extremities: No Clubbing, No Cyanosis, No Edema, Normal Pulses, No Tenderness/Swelling Skin: No Rashes, No Breakdown, No Significant Lesion Neuro: Normal Speech Psych/Mental Status: Mental Status NL, Mood NL A/P-Cardiology Admission Diagnosis Chest pain Coronary artery disease Herniated disc Hypertension Hyperlipidemia Assessment/Plan Chest pain, chronic stable angina, no acute EKG changes, better at this time, continue to monitor Coronary artery disease, history of CABG, multiple intervention the past, recent cardiac catheterization with drug-eluting stent deployment to the vein graft to the diagonal artery, had a patent GRACE to LAD with patent stent beyond the anastomosis in the LAD, small vessel disease otherwise done by Dr. Perez in [facility], currently off aspirin and Plavix. Planning to resume on POD #3 Hypertension, continue to monitor blood pressure Sinus bradycardia. Secondary to medication, monitor blood pressure Hyperlipidemia, maintained on statin Generalized weakness, lower and upper extremity weakness, cervical spinal stenosis with slipped disc, s/p L 2-[address] Bhatt earlier this morning. Dementia Patient was seen and evaluated with Jill, had the surgery earlier today, laying down in bed, still having significant pain. Denied any chest pain, no shortness of breath. I will continue on current medication and continue to monitor, monitor blood pressure, repeat EKG in a.m. Clinical Quality Measures DVT/VTE Risk/Contraindication: Risk Factor Score Per Nursin RFS Level Per Nursing on Admit: 4+=Very High Supervisory-Addendum Brief Supervisory Addendum Participated in pt care: history, MDM, physical Personally performed: exam, history, MDM Care discussed with: JILL BRICE Jul 20, 2019 10:31 CHRISTIANO DAVIS MD Jul 20, 2019 12:32
--- NOTE | 2019-07-20 10:39 | Physical Therapy Progress Note ---
Therapy Progress Note Patient had surgery yesterday and discussed with nurse and patient is on bedrest all day until about 1600. ALANA CISNEROS PT Jul 20, 2019 10:39
--- NOTE | 2019-07-20 10:56 | Occupational Ther Daily Note ---
OT Current Status-Daily Note Subjective Pt seen supine in bed. Nursing notified of bed rest/ supine position for 24 hours. Pt agreeable to OT tx session, stating 10/10 pain in back, R knee, R hip. Mental Status/Objective Patient Orientation: Normal For Age Therapy Code Descriptions/Definitions Functional [place] Measure: 0=Not Assessed/NA 4=Minimal Assistance 1=Total Assistance 5=Supervision or Setup 2=Maximal Assistance 6=Modified [place] 3=Moderate Assistance 7=Complete [place] Attachments: IV, Oxygen ADL-Treatment Eating (FIM): 4 (Pt able to drink from straw when placed/hold water cup in front of pt. ) Grooming (FIM): 5 (Pt able to wipe face with s/u for opening package.) Other Treatment Pt completes wiping face with w/c. Pt requires assist wiping BUE and BLE. Pt repositioned with towels under R arm for comfort and R knee to maintain natural alignment as pt states it is "very painful." Pt states mouth is dry, able to complete mouth swab with s/u. Pt left in bed, call light in reach, all needs met. Education OT Patient Education: Correct positioning, Modified ADL techniques, Purpose of tx/functional activities, Reviewed precautions Teaching Recipient: Patient Teaching Methods: Demonstration, Discussion Response to Teaching: Verbalize Understanding, Return Demonstration OT Short Term Goals Short Term Goals Grooming(FIM): 6 (met) Lower Body Dressing(FIM): 2 Toileting(FIM): 3 Transfers (B,C,W/C) (FIM): 3 1=Demonstrate adherence to instructed precautions during ADL tasks. 2=Patient will verbalize/demonstrate understanding of assistive devices/modifica tions for ADL. 3=Patient will improve strength/tolerance for activity to enable patient to perform ADL's. OT Education Courses Sales Representative Goals [employer] Goals Eating (FIM): 7 Grooming(FIM): 6 Bathing(FIM): 3 Upper Body Dressing(FIM): 4 Lower Body Dressing(FIM): 3 Toileting(FIM): 4 Transfers (B,C,W/C) (FIM): 4 Toilet/Commode Transfer(FIM): 4 Tub Transfer(FIM): 4 Shower Transfer(FIM): 4 Additional Goals: 1-Demonstrate ADL Tasks, 2-Verbalize Understanding, 3- ImproveStrength/Jesus Alberto 1=Demonstrate adherence to instructed precautions during ADL tasks. 2=Patient will verbalize/demonstrate understanding of assistive devices/modifications for ADL. 3=Patient will improve strength/tolerance for activity to enable patient to perform ADL's. OT Education/Plan Problem List/Assessment Assessment: Decreased Activ Tolerance, Decreased UE Strength, Impaired Bed Mobility, Impaired I ADL's, Impaired Self-Care Skills, Restricted Funct UE ROM Discharge Recommendations Plan/Recommendations: Continue POC Treatment Plan/Plan of Care Treatment,Training & Education: Yes Patient would benefit from OT for education, treatment and training to promote independence in ADL's, mobility, safety and/or upper extremity function for ADL's. Plan of Care: ADL Retraining, Caregiver Training, Functional Mobility, UE Funct Exercise/Act Frequency: 5 times per week Estimated Hrs Per Day: .25 hour per day Agreement: Yes Rehab Potential: Fair Time/GCodes Start Time: 09:39 Stop Time: 09:50 Total Time Billed (hr/min): 11 Billed Treatment Time 1 ADL (11) GAYLE NOEL OTR Jul 20, 2019 10:56
[2019-07-20 12:00] VITALS: BP 113/65
--- NOTE | 2019-07-20 13:58 | Pulmonary Progress Note ---
Subjective Time Seen by a Provider: 10:27 Subjective/Events-last exam Denies SOB or productive cough Sepsis Event Evaluation Height, Weight, BMI Height: '" Weight: lbs. oz. kg; 29.48 BMI Method: Exam Exam Vital Signs Date Time Temp Pulse Resp B/P (MAP) Pulse Ox O2 Delivery O2 Flow Rate FiO2 07/20/19 12:00 36.7 75 22 113/65 (81) 96 Nasal Cannula 3.00 07/20/19 11:31 95 Nasal Cannula 3.00 07/20/19 08:00 37.2 74 24 97/56 (70) 95 Nasal Cannula 3.00 07/20/19 08:00 Nasal Cannula 3.00 07/20/19 06:43 95 Nasal Cannula 3.00 07/20/19 03:57 36.4 65 18 148/69 (95) 96 Nasal Cannula 3.00 07/20/19 01:00 57 07/20/19 00:23 36.8 58 20 151/72 (98) 98 OxyMask 3.00 07/19/19 22:40 37.1 60 122/69 (86) 95 Nasal Cannula 3.00 07/19/19 21:54 36.8 59 148/68 (94) 97 Nasal Cannula 3.00 07/19/19 21:11 36.8 52 125/67 (86) 96 Nasal Cannula 3.00 07/19/19 20:39 36.3 50 117/63 (81) 97 Nasal Cannula 3.00 07/19/19 20:09 36.5 62 128/66 (86) 96 Nasal Cannula 3.00 07/19/19 20:00 OxyMask 3.00 07/19/19 19:40 36.7 59 131/68 (89) 96 Nasal Cannula 3.00 07/19/19 19:20 97 OxyMask 3.00 07/19/19 19:00 57 07/19/19 18:39 36.8 58 138/68 (91) 97 Nasal Cannula 3.00 07/19/19 18:22 36.4 54 135/71 (92) 96 Nasal Cannula 3.00 07/19/19 18:08 36.5 55 138/70 (92) 96 Nasal Cannula 3.00 07/19/19 17:50 37.4 16 142/69 (93) 99 OxyMask 3 07/19/19 17:50 OxyMask 3 07/19/19 17:43 36.6 60 147/76 (99) 96 Nasal Cannula 3.00 07/19/19 17:40 20 141/73 (95) 99 OxyMask 3 07/19/19 17:40 OxyMask 4 07/19/19 17:30 16 146/72 (96) 98 OxyMask 3 07/19/19 17:25 OxyMask 4 07/19/19 17:20 14 149/68 (95) 98 OxyMask 4 07/19/19 17:10 OxyMask 4 07/19/19 17:10 16 104/69 (81) 99 OxyMask 4 07/19/19 17:00 19 158/76 (103) 99 OxyMask 6 07/19/19 16:55 OxyMask 6 07/19/19 16:50 14 146/74 (98) 100 OxyMask 6 07/19/19 16:40 37.2 17 157/76 (103) 100 OxyMask 10 07/19/19 16:40 OxyMask 10 I & O 07/20/19 07:00 Intake Total 650 ml Output Total 1305 ml Balance -655 ml Height & Weight Height: '" Weight: lbs. oz. kg; 29.48 BMI Method: General Appearance: No Apparent Distress, WD/WN HEENT: PERRL/EOMI, Pharynx Normal Neck: Normal Inspection, Supple Respiratory: Lungs Clear, No Respiratory Distress Cardiovascular: Regular Rate, Rhythm, No Murmur Capillary Refill: Less Than 3 Seconds Peripheral Pulses: 2+ Dorsalis Pedis (R), 2+ Left Dors-Pedis (L), 2+ Radial Pulses (R), 2+ Radial Pulses (L) Gastrointestinal: soft, no organomegaly, no pulsatile mass, tenderness (RUQ and RLQ ) Extremity: Normal Inspection, No Pedal Edema, Calf Tenderness Neurologic/Psychiatric: Alert, Oriented x3 Skin: Normal Color, Warm/Dry Lymphatic: No Adenopathy Results Lab Laboratory Tests 07/19/19 04:47 Assessment/Plan Assessment/Plan Cervical spinal stenosis/ Lumbar spinal stenosis -s/p L2-3 laminectomy/medial facetectomies/excision of HNP PT/OT following COPD -COPD is stable continue SVNS -nebulizers QID -IS -Monitor CAD with hx of CABG -Cardiology following HTN TAN PALOMARES DO Jul 20, 2019 13:58
[2019-07-20 16:07] VITALS: BP 128/64
--- NOTE | 2019-07-20 17:21 | NUR ---
Pt requested aerial hurricane hunter follow up for prayer and active listening. Daughter Christa present. The pt was shaking and said his right knee hurt. I communicated this to the RN and WATER TAXI FERRY OPERATOR who both demonstrated compassion and attentiveness. RN provided pt with pain medication and an ice pack for his knee. The pt requested heat in place of ice, and WATER TAXI FERRY OPERATOR provided heated blankets. His daughter said he usually keeps his thermostat at home in the high 70's.
--- NOTE | 2019-07-20 18:40 | NUR ---
NOTIFIED DR HDEZ OF COMPLAINT OF " HEAD DISCOMFORT" INSTRUCTED THIS RN TO RESTART THE 24HR FLAT HEAD AND BEDREST
[2019-07-20 20:02] VITALS: BP 118/58
--- NOTE | 2019-07-20 20:26 | Progress Note ---
Standard Progress Note Progress Notes/Assess & Plan Date Seen by a Provider: Jul 20, 2019 Time Seen by a Provider: 18:10 Progress/Assessment & Plan Pt ART, pain controlled, HOB elevated to 30deg ag 16:30, no current symptoms of persistent CSF leak, no cp/sob, no complaints. VSSAF B/L LE neuromotor function improving HVD with minimal SS drainage ABD soft/NT Breathing well on RA Dressings c/d/i S/P L2-3 laminectomy/excision of HNP, incidental durotomy with repair, POD #1 Will continue HOB elevation protocol and mobilize OOB with PT/OT if continues to remain asymptomatic of persistent CSF leak; if becomes symptomatic then patient to return to [facility] for an additional 24hrs Current pain control regimen Bowel regimen SCDs/ISB Can resume plavix on POD #3 Vitals Signs Source: Tympanic, Heart Rate: 77, Respiratory Rate: 20, BP: 118/58, Pulse Oximetry: 97, Weight: 91.5 ADAM HDEZ DO Jul 20, 2019 20:26
[2019-07-20] MEDS: amLODIPine 10 MG (NORVASC) TAB PO SCH (20:30)
[2019-07-20] MEDS: DONEPEZIL 10 MG (ARICEPT) TAB PO SCH (20:31)
[2019-07-20] MEDS: TERAZOSIN 5 MG (HYTRIN) CAPSULE PO SCH (20:37)
[2019-07-21] VITALS: BP 129/69
[2019-07-21] MEDS: DEXAMETHASONE 4 MG TAB (DECADRON) PO SCH ×4 (00:04→17:19)
[2019-07-21 04:00] VITALS: BP 160/79
[2019-07-21] MEDS: CATHETER FLUSH 10 ML SYR IV SCH ×2 (05:09→14:36)
[2019-07-21] MEDS: RT-ALBUTEROL/IPRATROPIUM 3 ML (DUONEB) VIAL INH SCH ×4 (07:30→18:56)
[2019-07-21 08:00] VITALS: BP 132/69
[2019-07-21] MEDS: CARVEDILOL 3.125 MG (COREG) TABLET PO SCH ×2 (09:02→21:04)
[2019-07-21] MEDS: SENNA W/DOCUSATE (SENOKOT S) TABLET PO SCH ×2 (09:02→21:04)
[2019-07-21] MEDS: PANTOPRAZOLE 40 MG (PROTONIX) TAB PO SCH (09:02)
[2019-07-21] MEDS: TOLTERODINE LA 4 MG (DETROL) CAP PO SCH (09:02)
[2019-07-21] MEDS: LOSARTAN 50 MG (COZAAR) TAB PO SCH (09:02)
[2019-07-21] MEDS: LORATADINE (CLARITIN) 10 MG TAB PO SCH (09:02)
[2019-07-21] MEDS: CYCLOBENZAPRINE 10 MG (FLEXERIL) TAB PO PRN (09:02)
[2019-07-21] MEDS: DOCUSATE CALCIUM 240 MG (SURFAK) CAP PO SCH ×2 (09:02→21:04)
--- NOTE | 2019-07-21 09:10 | Pulmonary Progress Note ---
Subjective Time Seen by a Provider: 09:10 Subjective/Events-last exam No complications noted. Sepsis Event Evaluation Height, Weight, BMI Height: '" Weight: lbs. oz. kg; 29.48 BMI Method: Exam Exam Vital Signs Date Time Temp Pulse Resp B/P (MAP) Pulse Ox O2 Delivery O2 Flow Rate FiO2 07/21/19 07:32 93 Nasal Cannula 3.00 07/21/19 07:00 58 07/21/19 04:00 36.9 21 20 160/79 (106) 92 Nasal Cannula 3.00 07/21/19 01:32 65 07/21/19 00:00 36.9 68 20 129/69 (89) 95 Nasal Cannula 3.00 07/20/19 20:02 37.4 77 20 118/58 (78) 97 Nasal Cannula 3.00 07/20/19 20:00 Nasal Cannula 3.00 07/20/19 19:29 96 Nasal Cannula 3.00 07/20/19 19:00 80 07/20/19 16:07 36.4 94 20 128/64 (85) 92 Nasal Cannula 3.00 07/20/19 14:07 95 Nasal Cannula 3.00 07/20/19 13:00 65 07/20/19 12:00 36.7 75 22 113/65 (81) 96 Nasal Cannula 3.00 07/20/19 11:31 95 Nasal Cannula 3.00 I & O 07/21/19 07:00 Intake Total 850 ml Output Total 1950 ml Balance -1100 ml Height & Weight Height: '" Weight: lbs. oz. kg; 29.48 BMI Method: General Appearance: No Apparent Distress, WD/WN HEENT: PERRL/EOMI, Pharynx Normal Neck: Normal Inspection, Supple Respiratory: Lungs Clear, No Respiratory Distress Cardiovascular: Regular Rate, Rhythm, No Murmur Capillary Refill: Less Than 3 Seconds Peripheral Pulses: 2+ Dorsalis Pedis (R), 2+ Left Dors-Pedis (L), 2+ Radial Pulses (R), 2+ Radial Pulses (L) Gastrointestinal: soft, no organomegaly, no pulsatile mass, tenderness (RUQ and RLQ ) Extremity: Normal Inspection, No Pedal Edema, Calf Tenderness Neurologic/Psychiatric: Alert, Oriented x3 Skin: Normal Color, Warm/Dry Lymphatic: No Adenopathy Assessment/Plan Assessment/Plan Cervical spinal stenosis/ Lumbar spinal stenosis -s/p L2-3 laminectomy/medial facetectomies/excision of HNP PT/OT following COPD -COPD is stable continue SVNS -nebulizers QID -IS -Monitor CAD with hx of CABG -Cardiology following HTN TAN PALOMARES DO Jul 21, 2019 09:10
--- NOTE | 2019-07-21 09:13 | Progress Note - Hospitalist ---
Subjective HPI/CC On Admission Date Seen by Provider: Jul 21, 2019 Time Seen by Provider: 09:07 weakness Subjective/Events-last exam Pt complaints of pain in his back to the point of being tearful. No chest pain or SOB. Still on strict bedrest. Objective Exam Vital Signs Vital Signs Date Time Temp Pulse Resp B/P (MAP) Pulse Ox O2 Delivery O2 Flow Rate FiO2 07/21/19 07:32 93 Nasal Cannula 3.00 07/21/19 07:00 58 07/21/19 04:00 36.9 20 160/79 (106) Capillary Refill : Less Than 3 SecondsLess Than 3 Seconds General Appearance: Chronically ill, Mild Distress (appears uncomfortable) Respiratory: Lungs Clear, No Respiratory Distress Cardiovascular: Regular Rate, Rhythm, No Murmur Neurologic/Psychiatric: Alert, Oriented x3, Normal Mood/Affect Results/Procedures Lab Patient resulted labs reviewed. Assessment/Plan Assessment and Plan Assess & Plan/Chief Complaint Cervical spinal stenosis Slipped intravertebral disc Lumbar spinal stenosis - POD#2 s/p L2-3 laminectomy/medial facetectomies/excision of HNP Pain uncontrolled- will add fentanyl patch for baseline pain and increase frequency of Dilaudid PT/OT following- still on strict bedrest - Will need Lovenox as soon as ok with Ortho Orthopedic surgery consulted COPD - Pulm consulted, appreciate recs - MAT protocol Coronary artery disease -ASA and Plavix held for surgical intervention, per Dr. Bhatt -Can resume on POD #3 per ortho HTN -Stable, continue home meds Diagnosis/Problems Diagnosis/Problems (1) CAD (coronary artery disease) Qualifiers: Coronary Disease-Associated Artery/Lesion type: bypass graft [place] vs. transplanted heart: [place] heart Associated angina: without angina Qualified Codes: I25.810 - Atherosclerosis of coronary artery bypass graft(s) without angina pectoris (2) Essential (primary) hypertension Status: Chronic (3) Neuroforaminal stenosis of spine Status: Acute (4) Slipped intervertebral disc Status: Acute Qualifiers: Spinal region: lumbar Qualified Codes: M51.26 - Other intervertebral disc displacement, lumbar region (5) Lumbar spinal stenosis Status: Acute Qualifiers: Neurogenic claudication status: unspecified Qualified Codes: M48.061 - Spinal stenosis, lumbar region without neurogenic claudication (6) Cervical spinal stenosis Status: Acute (7) Generalized weakness Status: Acute (8) Incidental durotomy Clinical Quality Measures DVT/VTE Risk/Contraindication: Risk Factor Score Per Nursin RFS Level Per Nursing on Admit: 4+=Very High KIZZY MEEKS MD Jul 21, 2019 09:13
[2019-07-21] MEDS ORDERED: fentaNYL PATCH 25 MCG (DURAGESIC) TD SCH (09:15)
--- NOTE | 2019-07-21 09:32 | Cardiology Progress Note ---
Subjective Date Seen by Provider: Jul 21, 2019 Time Seen by Provider: 09:30 Subjective/Events-last exam patient is laying down in bed, complaining of back pain. No chest pain Review of Systems General: No Chills, No Night Sweats, No Fatigue, No Malaise, No Appetite, No Other HEENT: No Head Aches, No Visual Changes, No Eye Pain, No Ear Pain, No Dysphasia, No Sinus Congestion, No Post Nasal Drip, No Sore Throat, No Other Pulmonary: No Dyspnea, No Cough, No Pleuritic Chest Pain, No Other Cardiovascular: No: Chest Pain, Palpitations, Orthopnea, Paroxysmal Noc. Dyspnea, Edema, Lt Headedness, Other Objective-Cardiology Exam Last Set of Vital Signs Vital Signs 07/21/19 07/21/19 07/21/19 04:00 07:00 07:32 Temp 36.9 Pulse 58 Resp 20 B/P (MAP) 160/79 (106) Pulse Ox 93 O2 Delivery Nasal Cannula O2 Flow Rate 3.00 Capillary Refill : Less Than 3 SecondsLess Than 3 Seconds I&O Intake and Output 07/21/19 00:00 Intake Total 900 ml Output Total 2050 ml Balance -1150 ml Intake Oral 850 ml IV Total 50 ml Output Urine Total 2050 ml Drainage Total 0 ml General: Alert, Oriented X3, Cooperative HEENT: Atraumatic, PERRLA Neck: Supple, No JVD, No Thyromegaly Lungs: Clear to Auscultation, Normal Air Movement Heart: Normal S1, Normal S2, Other (Systolic murmur, S3) Abdomen: Normal Bowel Sounds, Soft, No Tenderness, No Hepatosplenomegaly, No Masses Extremities: No Clubbing, No Cyanosis, No Edema, Normal Pulses, No Tenderness/Swelling Skin: No Rashes, No Breakdown, No Significant Lesion Neuro: Normal Speech Psych/Mental Status: Mental Status NL, Mood NL A/P-Cardiology Admission Diagnosis Chest pain Coronary artery disease Herniated disc Hypertension Hyperlipidemia Assessment/Plan Spinal stenosis, slipped disc, status post L2-3 laminectomy done on July 20, 2019, still having significant back pain Chest pain, chronic stable angina, no active chest pain today. Continue to monitor Coronary artery disease, history of CABG, multiple intervention the past, recent cardiac catheterization with drug-eluting stent deployment to the vein graft to the diagonal artery, had a patent GRACE to LAD with patent stent beyond the anastomosis in the LAD, small vessel disease otherwise done by Dr. Perez in [facility], currently off aspirin and Plavix. Planning to resume on POD #3 if okay with orthopedic surgeon Hypertension, continue to monitor blood pressure Sinus bradycardia. Secondary to medication, monitor blood pressure Hyperlipidemia, maintained on statin Generalized weakness, lower and upper extremity weakness, cervical spinal stenosis with slipped disc, s/p L 2-[address] Bhatt earlier this morning. Dementia Clinical Quality Measures DVT/VTE Risk/Contraindication: Risk Factor Score Per Nursin RFS Level Per Nursing on Admit: 4+=Very High CHRISTIANO DAVIS MD Jul 21, 2019 09:32
--- NOTE | 2019-07-21 09:34 | Physical Therapy Progress Note ---
Therapy Progress Note Patient remains on bed rest until tonight due to procedure. PT to reeval in JOSE Walker PT Jul 21, 2019 09:34
[2019-07-21 09:42] LABS: BASOPHILS % (AUTO) 0 % (0-10); EOSINOPHILS % (AUTO) 0 % (0-10); HEMATOCRIT 39 % (40-54); HEMOGLOBIN 13.1 G/DL (13.3-17.7); LYMPHOCYTES # (AUTO) 0.6 X 10^3 (1.0-4.0); LYMPHOCYTES % (AUTO) 5 % (12-44); MEAN CORPUSCULAR HGB CONC 34 G/DL (32-36); MEAN CORPUSCULAR VOLUME 91 FL (80-99); MEAN PLATELET VOLUME 9.8 FL (7.4-10.4); MONOCYTES # (AUTO) 0.9 X 10^3 (0.0-1.0); MONOCYTES % (AUTO) 8 % (0-12); NEUTROPHILS # (AUTO) 10.3 X 10^3 (1.8-7.8); NEUTROPHILS % (AUTO) 87 % (42-75); PLATELET COUNT 269 10^3/uL (130-400); RED CELL DISTRIBUTION WIDTH 13.7 % (10.0-14.5); WHITE BLOOD COUNT 11.8 10^3/uL (4.3-11.0)
[2019-07-21 09:43] LABS: MEAN CORPUSCULAR HEMOGLOBIN 30 PG (25-34)
[2019-07-21 10:12] LABS: BUN/CREATININE RATIO 25; CARBON DIOXIDE 27 MMOL/L (21-32); CHLORIDE 104 MMOL/L (98-107); CREATININE SERUM 0.75 MG/DL (0.60-1.30); GFR ESTIMATED > 60; GLUCOSE 134 MG/DL (70-105); POTASSIUM 3.9 MMOL/L (3.6-5.0); SODIUM 138 MMOL/L (135-145)
[2019-07-21 10:32] LABS: BAND NEUTROPHILS 3 %; BASOPHILS % (MANUAL) 0 %; EOSINOPHILS % (MANUAL) 0 %; LYMPHOCYTES % (MANUAL) 4 %; MONOCYTES % (MANUAL) 8 %; NEUTROPHILS % (MANUAL) 85 %; RBC MORPH NORMAL
--- NOTE | 2019-07-21 11:26 | Occupational Ther Daily Note ---
OT Current Status-Daily Note Subjective Pt supine in bed, pt remains on bed rest. Pt states 7/10 pain. Pt agreeable to OT tx session. Mental Status/Objective Patient Orientation: Person, Place, Situation, Normal For Age Therapy Code Descriptions/Definitions Functional [place] Measure: 0=Not Assessed/NA 4=Minimal Assistance 1=Total Assistance 5=Supervision or Setup 2=Maximal Assistance 6=Modified [place] 3=Moderate Assistance 7=Complete [place] Attachments: IV, Oxygen, Telemetry ADL-Treatment Grooming (FIM): 5 (s/u for face and hair hygiene with wipes. Pt completes hair brushing with hair brush handed to pt. ) Other Treatment Pt completes face/ hair grooming. Pt states desire to shave, pt's nurse notified. Nursing staff states inability for nursing staff to complete due to safety, but pt is able to shave self with pt's equipment. Pt educated on nursing staff's requests. Pt states that would be a good goal for tomorrow when bed rest is lifted. Pt completes UE AROM exercises with shoulder flexion and elbow flexion/ extension. Pt's arms propped with pillows/ towels per pt request. Pt completes 15 hand squeezes with pink sponge per hand, pt left with call light in reach, all needs met, respiratory therapists present. Education OT Patient Education: Correct positioning, Exercise program, Home exercise program, Modified ADL techniques, Safety issues Teaching Recipient: Patient Teaching Methods: Demonstration, Discussion Response to Teaching: Verbalize Understanding, Return Demonstration OT Short Term Goals Short Term Goals Grooming(FIM): 6 (met) Lower Body Dressing(FIM): 2 Toileting(FIM): 3 Transfers (B,C,W/C) (FIM): 3 1=Demonstrate adherence to instructed precautions during ADL tasks. 2=Patient will verbalize/demonstrate understanding of assistive devices/modifications for ADL. 3=Patient will improve strength/tolerance for activity to enable patient to perform ADL's. OT Prison Goals Prison Goals Eating (FIM): 7 Grooming(FIM): 6 Bathing(FIM): 3 Upper Body Dressing(FIM): 4 Lower Body Dressing(FIM): 3 Toileting(FIM): 4 Transfers (B,C,W/C) (FIM): 4 Toilet/Commode Transfer(FIM): 4 Tub Transfer(FIM): 4 Shower Transfer(FIM): 4 Additional Goals: 1-Demonstrate ADL Tasks, 2-Verbalize Understanding, 3- ImproveStrength/Jesus Alberto 1=Demonstrate adherence to instructed precautions during ADL tasks. 2=Patient will verbalize/demonstrate understanding of assistive devices/modifications for ADL. 3=Patient will improve strength/tolerance for activity to enable patient to perform ADL's. OT Education/Plan Problem List/Assessment Assessment: Decreased Activ Tolerance, Impaired Bed Mobility, Impaired I ADL's, Impaired Self-Care Skills, Restricted Funct UE ROM Discharge Recommendations Plan/Recommendations: Continue POC Treatment Plan/Plan of Care Treatment,Training & Education: Yes Patient would benefit from OT for education, treatment and training to promote independence in ADL's, mobility, safety and/or upper extremity function for ADL's. Plan of Care: ADL Retraining, Caregiver Training, Functional Mobility, UE Funct Exercise/Act Frequency: 5 times per week Estimated Hrs Per Day: .25 hour per day Agreement: Yes Rehab Potential: Fair Time/GCodes Start Time: 11:00 Stop Time: 11:18 Total Time Billed (hr/min): 18 Billed Treatment Time 1 ADL (18) GAYLE NOEL OTR Jul 21, 2019 11:26
[2019-07-21] MEDS: NS IV 1000 ML 1,000 ML IV SCH (11:28)
[2019-07-21 12:00] VITALS: BP 131/87
--- NOTE | 2019-07-21 12:32 | NUR ---
RD ASSESSMENT PMHx: CAD, HTN Pt was awake and pleasant during consult. Pt states current appetite is poor, and has been for the past several days. Pt states no current issues with n/v at this time but states some issues with constipation. Pt states "it's been a while" since his last BM. Note last BM was 07/17, per chart review. Note pt refused meal this AM, per chart review. Abnormal nutrition-related lab values: K 3.5 (L); Cl 108 (H); BUN 20 (H); glu 145 (H); Hgb 12.5 (L); Hct 37 (L) Est. kcal needs: 6692-2744 kcal (20-25 kcal/kg) Est. Pro needs: 75-92 g Pro (0.8-1.0 g Pro/kg) PES Statement: Inadequate oral intake related to loss of appetite / constipation as evidenced by patient interview INTERVENTION: Continue with current diet order of clear liquid diet. Advance to full liquid diet, when medically able. MONITOR/EVALUATE: PO Intake Wt Status Hydration Status Lab values Efe Mendez, MS, RD [phone]
[2019-07-21] MEDS: HYDROcodone/APAP 5 MG/325 MG (LORTAB) TAB PO PRN ×2 (12:43→21:05)
--- NOTE | 2019-07-21 16:15 | NUR ---
Dr Bhatt here to see patient. gave the "okay" for rising of head of the bed
[2019-07-21 16:33] VITALS: BP 131/62
--- NOTE | 2019-07-21 17:18 | Progress Note ---
Standard Progress Note Progress Notes/Assess & Plan Date Seen by a Provider: Jul 21, 2019 Time Seen by a Provider: 16:00 Progress/Assessment & Plan Pt ART, pain controlled,tolerating [facility], no current symptoms of persistent CSF leak, no cp/sob, no complaints. VSSAF B/L LE neuromotor function continues to improve HVD with minimal SS drainage ABD soft/NT Breathing well on RA Dressings c/d/i S/P L2-3 laminectomy/excision of HNP, incidental durotomy with repair, POD #2 Orthopedically stable Will begin HOB elevation protocol now and mobilize OOB with PT/OT if continues to remain asymptomatic of persistent CSF leak; if becomes symptomatic then patient to return to [facility] for an additional 24hrs Current pain control regimen Bowel regimen SCDs/ISB Can resume plavix tomorrow Vitals Signs Source: Temporal, Heart Rate: 76, Respiratory Rate: 20, BP: 131/62, Pulse Oximetry: 94, Weight: 91.5 Laboratory Tests 07/21/19 09:25 ADAM HDEZ DO Jul 21, 2019 17:18
--- NOTE | 2019-07-21 18:55 | NUR ---
tolerated sitting up at 30 degrees and 60 degrees very well. Patient not ready to sit in a chair at this time
[2019-07-21 19:56] VITALS: BP 116/64
--- NOTE | 2019-07-21 20:30 | NUR ---
ENTERED ROOM TO ASSESS PT. PT STATES HE IS GOING TO DIAL 911 IF SOMEONE DID NOT HELP HIM. THIS RN ASKED WHAT HE WAS NEEDING HELP WITH. PT STATES HE TOLD NURSE THAT CAME INTO HIS ROOM HE WAS IN PAIN. THIS RN INFORMED PT I WAS HIS NURSE THIS EVENING AND NO ONE TOLD ME HE WAS IN PAIN AND I WOULD GET HIM SOME PAIN MEDICATION. PT STATES ALL YOU HAVE BEEN DOING IS WALKING UP AND DOWN THIS EDGE WAY. THIS RN INFORMED PT OTHER PTS ARE ON THIS SIDE OF EDGE. HE STATES I CAN NOT BE THAT BUSY IS ALL I AM DOING IS WALKING UP AND DOWN. THIS RN EXPRESSED I WAS NOT AWARE OF HIM REQUESTING PAIN MEDICATION AND I WOULD BE MORE THAN HAPPY TO GET HIM SOME. HE STATES HE HAS A PATCH ON FOR PAIN. THIS RN INFORMED HIM HE CAN HAVE MEDICATION IN ADDITION TO THE PATCH TO HELP CONTROL THE PAIN. HE STATES HE WANTS TO TALK TO POSTAL SUPERVISOR AND HE IS NOT GOING TO TOLERATE THIS. THIS RN CALLED HOUSE SUP AT THIS TIME.
--- NOTE | 2019-07-21 21:00 | NUR ---
HOUSE SUP IN ROOM TO TALK WITH PT AT THIS TIME.
[2019-07-21] MEDS: amLODIPine 10 MG (NORVASC) TAB PO SCH (21:04)
[2019-07-21] MEDS: DONEPEZIL 10 MG (ARICEPT) TAB PO SCH (21:04)
[2019-07-21] MEDS: TERAZOSIN 5 MG (HYTRIN) CAPSULE PO SCH (21:04)
--- NOTE | 2019-07-21 21:10 | NUR ---
REPORT GIVEN TO PETER AT THIS TIME.
[2019-07-22] MEDS: DEXAMETHASONE 4 MG TAB (DECADRON) PO SCH ×4 (00:07→17:45)
[2019-07-22] MEDS: HYDROmorphone 2 MG/ML VIAL (DILAUDID) IV PRN ×4 (00:07→13:32)
[2019-07-22] MEDS: CATHETER FLUSH 10 ML SYR IV SCH ×4 (00:09→20:50)
[2019-07-22 00:33] VITALS: BP 125/68
[2019-07-22] MEDS: NS IV 1000 ML 1,000 ML IV SCH ×2 (00:50→17:42)
[2019-07-22 04:00] VITALS: BP 126/70
--- NOTE | 2019-07-22 06:43 | NUR ---
PT REPORTS 10/10 HEADACHE, THIS NURSE NOTIFIED DR HDEZ AT 0634, DR MASSEY TO KEEP PT HEAD OF BED FLAT. THIS NURSE PULLED DILAUDID FOR PT HEADACHE, AND LAID THE HEAD OF THE BED FLAT. WHEN ABOUT TO ADMINISTER DILAUDID, PT STATES "I DONT NEED THAT, I JUST NEED SOME REST" THIS RN ASKED PT IF HE WAS SURE, AND REMINDED HIM THAT HE JUST REPORTED A 10/10 HEADACHE, AND THAT HE LOOKS LIKE HE IS IN PAIN. HE STATES HE IS OKAY AND DOES NOT NEED THE PAIN MEDICATION. WILL CONTINUE TO MONITOR
[2019-07-22] MEDS: RT-ALBUTEROL/IPRATROPIUM 3 ML (DUONEB) VIAL INH SCH ×4 (06:59→18:29)
--- NOTE | 2019-07-22 07:03 | NUR ---
PATIENT REFUSED SVN BT AT THIS TIME; HE STATED HE WAS DOING GOOD AND DIDN'T NEED OR WANT ONE
[2019-07-22 08:00] VITALS: BP 121/66
--- NOTE | 2019-07-22 08:06 | Pulmonary Progress Note ---
Subjective Time Seen by a Provider: 10:23 Subjective/Events-last exam No complications noted. Sepsis Event Evaluation Height, Weight, BMI Height: '" Weight: lbs. oz. kg; 29.48 BMI Method: Exam Exam Vital Signs Date Time Temp Pulse Resp B/P (MAP) Pulse Ox O2 Delivery O2 Flow Rate FiO2 07/22/19 07:00 48 07/22/19 06:59 94 Nasal Cannula 3.00 07/22/19 04:00 35.6 60 16 126/70 (88) 98 Nasal Cannula 3.00 07/22/19 00:51 69 07/22/19 00:33 36.6 70 18 125/68 (87) 92 Nasal Cannula 3.00 07/21/19 21:00 Nasal Cannula 3.00 07/21/19 19:56 36.8 97 20 116/64 (81) 92 Nasal Cannula 3.00 07/21/19 19:00 84 07/21/19 18:57 96 Nasal Cannula 3.00 07/21/19 16:33 37.0 76 20 131/62 (85) 94 Nasal Cannula 3.00 07/21/19 15:10 94 Nasal Cannula 3.00 07/21/19 12:31 73 07/21/19 12:00 37.4 72 22 131/87 (102) 95 Nasal Cannula 3.00 07/21/19 11:18 93 Nasal Cannula 3.00 I & O 07/22/19 07:00 Intake Total 840 ml Output Total 975 ml Balance -135 ml Height & Weight Height: '" Weight: lbs. oz. kg; 29.48 BMI Method: General Appearance: No Apparent Distress, Chronically ill HEENT: PERRL/EOMI, Pharynx Normal Neck: Normal Inspection, Supple Respiratory: Lungs Clear, No Respiratory Distress Cardiovascular: Regular Rate, Rhythm, No Murmur Capillary Refill: Less Than 3 Seconds Peripheral Pulses: 2+ Dorsalis Pedis (R), 2+ Left Dors-Pedis (L), 2+ Radial Pulses (R), 2+ Radial Pulses (L) Gastrointestinal: soft, no organomegaly, no pulsatile mass, tenderness (RUQ and RLQ ) Extremity: Normal Inspection, No Pedal Edema, Calf Tenderness Neurologic/Psychiatric: Alert, Oriented x3, Normal Mood/Affect Skin: Normal Color, Warm/Dry Lymphatic: No Adenopathy Results Lab Laboratory Tests 07/21/19 09:25 Assessment/Plan Assessment/Plan Cervical spinal stenosis/ Lumbar spinal stenosis -s/p L2-3 laminectomy PT/OT following COPD -COPD is stable continue SVNS -nebulizers QID -IS -Monitor CAD with hx of CABG -Cardiology following HTN TAN PALOMARES DO Jul 22, 2019 08:06
--- NOTE | 2019-07-22 08:12 | Progress Note - Hospitalist ---
Subjective HPI/CC On Admission Date Seen by Provider: Jul 22, 2019 Time Seen by Provider: 08:03 weakness Subjective/Events-last exam Pt reports doing well. Denies a headache. Denies any pain or needs. Objective Exam Vital Signs Vital Signs Date Time Temp Pulse Resp B/P (MAP) Pulse Ox O2 Delivery O2 Flow Rate FiO2 07/22/19 07:00 48 07/22/19 06:59 94 Nasal Cannula 3.00 07/22/19 04:00 35.6 16 126/70 (88) Capillary Refill : Less Than 3 SecondsLess Than 3 Seconds General Appearance: No Apparent Distress, WD/WN Cardiovascular: Regular Rate, Rhythm, No Murmur Gastrointestinal: Normal Bowel Sounds, Non Tender, Soft Neurologic/Psychiatric: Alert, Oriented x3 Results/Procedures Lab Laboratory Tests 07/21/19 09:25 Patient resulted labs reviewed. Assessment/Plan Assessment and Plan Assess & Plan/Chief Complaint Cervical spinal stenosis Slipped intravertebral disc Lumbar spinal stenosis - POD#3 s/p L2-3 laminectomy/medial facetectomies/excision of HNP Pain control improving with fentanyl patch PT/OT following- still on bedrest - Will need Lovenox as soon as ok with Ortho Orthopedic surgery consulted COPD - Pulm consulted, appreciate recs - MAT protocol Coronary artery disease -ASA and Plavix held for surgical intervention, per Dr. Bhatt -Can resume on POD #3 per ortho- defer to Cardiology on timing HTN -Stable, continue home meds Diagnosis/Problems Diagnosis/Problems (1) CAD (coronary artery disease) Qualifiers: Coronary Disease-Associated Artery/Lesion type: bypass graft [place] vs. transplanted heart: [place] heart Associated angina: without angina Qualified Codes: I25.810 - Atherosclerosis of coronary artery bypass graft(s) without angina pectoris (2) Essential (primary) hypertension Status: Chronic (3) Neuroforaminal stenosis of spine Status: Acute (4) Slipped intervertebral disc Status: Acute Qualifiers: Spinal region: lumbar Qualified Codes: M51.26 - Other intervertebral disc displacement, lumbar region (5) Lumbar spinal stenosis Status: Acute Qualifiers: Neurogenic claudication status: unspecified Qualified Codes: M48.061 - Spinal stenosis, lumbar region without neurogenic claudication (6) Cervical spinal stenosis Status: Acute (7) Generalized weakness Status: Acute (8) Incidental durotomy Clinical Quality Measures DVT/VTE Risk/Contraindication: Risk Factor Score Per Nursin RFS Level Per Nursing on Admit: 4+=Very High KIZZY MEEKS MD Jul 22, 2019 08:12
[2019-07-22] MEDS: CARVEDILOL 3.125 MG (COREG) TABLET PO SCH ×2 (09:01→20:49)
[2019-07-22] MEDS: LOSARTAN 50 MG (COZAAR) TAB PO SCH (09:01)
[2019-07-22] MEDS: HYDROcodone/APAP 5 MG/325 MG (LORTAB) TAB PO PRN ×2 (09:01→17:40)
[2019-07-22] MEDS: DOCUSATE CALCIUM 240 MG (SURFAK) CAP PO SCH ×2 (09:01→20:49)
[2019-07-22] MEDS: LORATADINE (CLARITIN) 10 MG TAB PO SCH (09:01)
[2019-07-22] MEDS: SENNA W/DOCUSATE (SENOKOT S) TABLET PO SCH ×2 (09:01→20:49)
[2019-07-22] MEDS: TOLTERODINE LA 4 MG (DETROL) CAP PO SCH (09:01)
[2019-07-22] MEDS: PANTOPRAZOLE 40 MG (PROTONIX) TAB PO SCH (09:01)
--- NOTE | 2019-07-22 09:30 | NUR ---
Chief Underwriter referral: Fashion Stylist Yara Arboleda and OJSE Cox told me the pt had been acting out of character, refused pain medication and yelled at staff. When I visited the pt, he immediately became tearful and said eh was glad to see me, that he was feeling afraid. He took my hand and said he was in allot of pain and felt afraid of suffering and dying. I offered active listening and encouraged ventilation of feelings. After 10 minutes I asked him to rate his pain because the pt appeared more calm and was not tearful. He said that he felt "much better, the pain is gone." He also said he felt less afraid. Dr. Cowan visited and told the pt that his heart sounded good. I communicated with Dr. Cowan in pt's hearing about pt's experienced fears and demonstrated subsiding of fears when in conversation and having people with him. The pt said he often feels alone and fearful. I offered prayer with the pt, and then communicated privately with Yara Arboleda, who said would follow up with Dr. Ruvalcaba about pt's demonstrated and expressed anxiety.
--- NOTE | 2019-07-22 09:49 | Occupational Ther Daily Note ---
OT Current Status-Daily Note Subjective Pt seen in bed, pt remains on bed rest on this date. Pt tearful, states "I remember you." Nursing states pt has been confused this morning. Agreeable to tx session. Mental Status/Objective Patient Orientation: Person, Place Therapy Code Descriptions/Definitions Functional [place] Measure: 0=Not Assessed/NA 4=Minimal Assistance 1=Total Assistance 5=Supervision or Setup 2=Maximal Assistance 6=Modified [place] 3=Moderate Assistance 7=Complete [place] Attachments: Ramos Catheter, IV, Oxygen ADL-Treatment Eating (FIM): 4 (Pt requires assist holding cup to bring to mouth. Pt able to bring straw to mouth and swallow while maintaining supine position) Other Treatment Pt completes grooming in bed with s/u. Pt tearful through session, stating, " It's all confusing, it's all coming together." Pt reoriented to situation 3x through session. Pt denies need for repositioning or mouth swab. Pt completes UE AROM and hand squeezes. Pt educated on therapy process and supine position. Pt stated understanding, but still tearful. Pt states he would like to listen to TV, TV on, call light in reach, all needs met. Education OT Patient Education: Correct positioning, Disease process, Exercise program, Home exercise program, Modified ADL techniques, Reviewed precautions, Rehab process, Safety issues Teaching Recipient: Patient Teaching Methods: Demonstration, Discussion Response to Teaching: Verbalize Understanding, Return Demonstration OT Short Term Goals Short Term Goals Grooming(FIM): 6 (met) Lower Body Dressing(FIM): 2 Toileting(FIM): 3 Transfers (B,C,W/C) (FIM): 3 1=Demonstrate adherence to instructed precautions during ADL tasks. 2=Patient will verbalize/demonstrate understanding of assistive devices/modifications for ADL. 3=Patient will improve strength/tolerance for activity to enable patient to perform ADL's. OT Care Home Goals Care Home Goals Eating (FIM): 7 Grooming(FIM): 6 Bathing(FIM): 3 Upper Body Dressing(FIM): 4 Lower Body Dressing(FIM): 3 Toileting(FIM): 4 Transfers (B,C,W/C) (FIM): 4 Toilet/Commode Transfer(FIM): 4 Tub Transfer(FIM): 4 Shower Transfer(FIM): 4 Additional Goals: 1-Demonstrate ADL Tasks, 2-Verbalize Understanding, 3- ImproveStrength/Jesus Alberto 1=Demonstrate adherence to instructed precautions during ADL tasks. 2=Patient will verbalize/demonstrate understanding of assistive de vices/modifications for ADL. 3=Patient will improve strength/tolerance for activity to enable patient to perform ADL's. OT Education/Plan Problem List/Assessment Assessment: Decreased Activ Tolerance, Decreased Safety Aware, Decreased UE Strength, Impaired Cognition, Impaired I ADL's, Impaired Self-Care Skills Discharge Recommendations Plan/Recommendations: Continue POC Treatment Plan/Plan of Care Treatment,Training & Education: Yes Patient would benefit from OT for education, treatment and training to promote independence in ADL's, mobility, safety and/or upper extremity function for ADL's. Plan of Care: ADL Retraining, Caregiver Training, Functional Mobility, UE Funct Exercise/Act Frequency: 5 times per week Estimated Hrs Per Day: .25 hour per day Agreement: Yes Rehab Potential: Fair Time/GCodes Start Time: 09:02 Stop Time: 09:17 Total Time Billed (hr/min): 15 Billed Treatment Time 1 ADL (15) GAYLE NOEL OTR Jul 22, 2019 09:49
--- NOTE | 2019-07-22 10:18 | Cardiology Progress Note ---
Subjective Date Seen by Provider: Jul 22, 2019 Time Seen by Provider: 10:17 Subjective/Events-last exam Patient is laying down in bed, still having back pain, no chest pain Review of Systems General: No Chills, No Night Sweats; Fatigue; No Malaise, No Appetite, No Other HEENT: No Head Aches, No Visual Changes, No Eye Pain, No Ear Pain, No Dysphasia, No Sinus Congestion, No Post Nasal Drip, No Sore Throat, No Other Pulmonary: No Dyspnea, No Cough, No Pleuritic Chest Pain, No Other Cardiovascular: No: Chest Pain, Palpitations, Orthopnea, Paroxysmal Noc. Dyspnea, Edema, Lt Headedness, Other Objective-Cardiology Exam Last Set of Vital Signs Vital Signs 07/22/19 08:00 Temp 36.6 Pulse 52 Resp 18 B/P (MAP) 121/66 (84) Pulse Ox 97 O2 Delivery Nasal Cannula O2 Flow Rate 3.00 Capillary Refill : Less Than 3 SecondsLess Than 3 Seconds I&O Intake and Output 07/22/19 00:00 Intake Total 840 ml Output Total 1150 ml Balance -310 ml Intake Oral 840 ml Output Urine Total 1150 ml Drainage Total 0 ml General: Alert, Oriented X3, Cooperative HEENT: Atraumatic, PERRLA Neck: Supple, No JVD, No Thyromegaly Lungs: Clear to Auscultation, Normal Air Movement Heart: Normal S1, Normal S2, Other (Systolic murmur, S3) Abdomen: Normal Bowel Sounds, Soft, No Tenderness, No Hepatosplenomegaly, No Masses Extremities: No Clubbing, No Cyanosis, No Edema, Normal Pulses, No Tenderness/Swelling Skin: No Rashes, No Breakdown, No Significant Lesion Neuro: Normal Speech Psych/Mental Status: Mental Status NL, Mood NL A/P-Cardiology Admission Diagnosis Chest pain Coronary artery disease Herniated disc Hypertension Hyperlipidemia Assessment/Plan Spinal stenosis, slipped disc, status post L2-3 laminectomy done on July 20, 2019, still having significant back pain Chest pain, chronic stable angina, no active chest pain today. Continue to monitor Coronary artery disease, history of CABG, multiple intervention the past, recent cardiac catheterization with drug-eluting stent deployment to the vein graft to the diagonal artery, had a patent GRACE to LAD with patent stent beyond the anastomosis in the LAD, small vessel disease otherwise done by Dr. Perez in [facility], currently off aspirin and Plavix. Planning to resume on POD #3 if okay with orthopedic surgeon Hypertension, continue to monitor blood pressure Sinus bradycardia. Secondary to medication, monitor blood pressure Hyperlipidemia, maintained on statin Generalized weakness, lower and upper extremity weakness, cervical spinal stenosis with slipped disc, s/p L 2-[address] Bhatt earlier this morning. Dementia Clinical Quality Measures DVT/VTE Risk/Contraindication: Risk Factor Score Per Nursin RFS Level Per Nursing on Admit: 4+=Very High CHRISTIANO DAVIS MD Jul 22, 2019 10:18
--- NOTE | 2019-07-22 10:29 | Physical Therapy Progress Note ---
Therapy Progress Note Patient continues to be on hold secondary to dural issue. PT will continue to monitor patient status and reeval when medically stable. JOSE CORADO PT Jul 22, 2019 10:29
[2019-07-22 12:00] VITALS: BP 169/79
[2019-07-22 15:35] VITALS: BP 155/70
[2019-07-22 20:20] VITALS: BP 153/72
[2019-07-22] MEDS: TERAZOSIN 5 MG (HYTRIN) CAPSULE PO SCH (20:49)
[2019-07-22] MEDS: DONEPEZIL 10 MG (ARICEPT) TAB PO SCH (20:49)
[2019-07-22] MEDS: amLODIPine 10 MG (NORVASC) TAB PO SCH (20:50)
--- NOTE | 2019-07-22 23:50 | NUR ---
Dr. Ruvalcaba notified of pt's increased confusion and agitation. Pt is stating he wants the ambulance called to take him to the hospital and is threatening to get up and leave. Attempts at orientating to place and time have been unsuccessful. Pt clamped off IV by himself causing the IV pump to beep with a distal occlusion, but would not allow the nurse to fix it or get near IV. Pt also took O2 off and will not let his O2 saturation be assessed. New order rec for Haldol 2mg IM q 4 hr prn agitation.
[2019-07-23] MEDS ORDERED: HALOPERIDOL 5 MG/ML (HALDOL) AMP IM PRN
[2019-07-23] MEDS: DEXAMETHASONE 4 MG TAB (DECADRON) PO SCH ×5 (00:41→23:45)
--- NOTE | 2019-07-23 01:25 | NUR ---
Pt continues to be agitated and attempting to get out of bed. Turbine Room Attendant (USHA Segura) notified Dr. Ruvalcaba of continued agitation and aggressiveness unrelieved by haldol given at 0000). New order rec to give Geodon 10mg IM q 8 hrs for agitation.
[2019-07-23] MEDS ORDERED: ZIPRASIDONE 20 MG INJ (GEODON) VIAL IM PRN (01:30)
[2019-07-23] MEDS ORDERED: ZIPRASIDONE 20 MG INJ (GEODON) VIAL IM ONE (01:35)
[2019-07-23] MEDS: NS IV 1000 ML 1,000 ML IV SCH ×3 (03:33→17:41)
--- NOTE | 2019-07-23 04:07 | NUR ---
Resting quietly at this time. Will continue to monitor.
[2019-07-23 04:55] VITALS: BP 121/57
[2019-07-23] MEDS: CATHETER FLUSH 10 ML SYR IV SCH ×3 (05:38→19:51)
[2019-07-23 08:16] VITALS: BP 149/70
[2019-07-23] MEDS: SENNA W/DOCUSATE (SENOKOT S) TABLET PO SCH ×2 (08:24→19:50)
[2019-07-23] MEDS: CARVEDILOL 3.125 MG (COREG) TABLET PO SCH ×2 (08:25→19:50)
[2019-07-23] MEDS: HYDROcodone/APAP 5 MG/325 MG (LORTAB) TAB PO PRN ×2 (08:25→23:05)
[2019-07-23] MEDS: PANTOPRAZOLE 40 MG (PROTONIX) TAB PO SCH (08:25)
[2019-07-23] MEDS: TOLTERODINE LA 4 MG (DETROL) CAP PO SCH (08:25)
[2019-07-23] MEDS: LORATADINE (CLARITIN) 10 MG TAB PO SCH (08:25)
[2019-07-23] MEDS: DOCUSATE CALCIUM 240 MG (SURFAK) CAP PO SCH ×2 (08:25→19:50)
[2019-07-23] MEDS: LOSARTAN 50 MG (COZAAR) TAB PO SCH (08:28)
--- NOTE | 2019-07-23 10:00 | NUR ---
PT. REFUSING MEDS AND FOOD AND DRINK. STATES " NO, I WANT TO ." PARA OPERATOR NOTIFIED. FAMILY NOTIFIED. PASTORAL CARE NOTIFIED. STAYED WITH PT. AND TALKED FOR A WHILE.
--- NOTE | 2019-07-23 10:26 | Pulmonary Progress Note ---
Subjective Time Seen by a Provider: 10:24 Subjective/Events-last exam No complications noted. RN at bedside. Sepsis Event Evaluation Height, Weight, BMI Height: '" Weight: lbs. oz. kg; 29.48 BMI Method: Exam Exam Vital Signs Date Time Temp Pulse Resp B/P (MAP) Pulse Ox O2 Delivery O2 Flow Rate FiO2 07/23/19 08:16 36.4 63 20 149/70 (96) 96 Nasal Cannula 3.00 07/23/19 07:00 49 07/23/19 04:55 36.3 53 16 121/57 (78) 95 Nasal Cannula 2.00 07/23/19 02:43 36.1 58 16 92 Room Air 07/23/19 01:00 68 07/22/19 20:40 Nasal Cannula 3.00 07/22/19 20:20 36.3 69 18 153/72 (99) 98 Nasal Cannula 3.00 07/22/19 19:00 72 07/22/19 18:29 96 Nasal Cannula 3.00 07/22/19 15:35 36.6 66 20 155/70 (98) 96 Nasal Cannula 3.00 07/22/19 12:39 66 07/22/19 12:00 37.2 66 18 169/79 (109) 99 Nasal Cannula 3.00 07/22/19 10:37 98 Nasal Cannula 3.00 I & O 07/23/19 06:59 Intake Total 2840 ml Output Total 1650 ml Balance 1190 ml Height & Weight Height: '" Weight: lbs. oz. kg; 29.48 BMI Method: General Appearance: No Apparent Distress, Chronically ill HEENT: PERRL/EOMI, Pharynx Normal Neck: Normal Inspection, Supple Respiratory: Lungs Clear, No Respiratory Distress Cardiovascular: Regular Rate, Rhythm, No Murmur Capillary Refill: Less Than 3 Seconds Peripheral Pulses: 2+ Dorsalis Pedis (R), 2+ Left Dors-Pedis (L), 2+ Radial Pulses (R), 2+ Radial Pulses (L) Gastrointestinal: soft, no organomegaly, no pulsatile mass, tenderness (RUQ and RLQ ) Extremity: Normal Inspection, No Pedal Edema, Calf Tenderness Neurologic/Psychiatric: Alert, Oriented x3, Normal Mood/Affect Skin: Normal Color, Warm/Dry Lymphatic: No Adenopathy Assessment/Plan Assessment/Plan Cervical spinal stenosis/ Lumbar spinal stenosis -s/p L2-3 laminectomy PT/OT following COPD -COPD is stable continue SVNS -nebulizers QID -IS -Monitor CAD with hx of CABG -Cardiology following HTN TAN PALOMARES DO Jul 23, 2019 10:26
--- NOTE | 2019-07-23 10:34 | Physical Therapy Evaluation ---
PT Evaluation-General Medical Diagnosis Admission Date Jul 14, 2019 at 14:27 Medical Diagnosis: weakness Onset Date: Jul 12, 2019 Therapy Diagnosis Therapy Diagnosis: decreased mobility Precautions Precautions/Isolations: Fall Prevention, Standard Precautions Weight Bear Status Right Lower Extremity: Right Weight Bearing/Tolerated Left Lower Extremity: Left Weight Bearing/Tolerated Referral Physician: Yesi Reason for Referral: Evaluation/Treatment Medical History Pertinent Medical History: CABG, HTN Additional Medical History heart attack, appendectomy Reviewed History: Yes Social History Home: Single Level Current Living Status: granddaughter + granddaughter's spouse Entry Into Home: Stairs With Railing PT Steps Into Home: 2 PT Steps Inside Home: 0 Prior/Core FIM Prior Level of Function Therapy Code Descriptions/Definitions Functional [place] Measure: 0=Not Assessed/NA 4=Minimal Assistance 1=Total Assistance 5=Supervision or Setup 2=Maximal Assistance 6=Modified [place] 3=Moderate Assistance 7=Complete [place] Therapy Quality Codes: 6 Independent with activity with or without an assistive device 5 Patient requires set up or clean up by helper. Patient completes activity by themselves 4 Supervision or touching assist (CGA). [place] provide cues , steadying as sist 3 The helper provides less than half the effort to complete the activity 2 The helper provides more than half the effort to complete the activity 1 Dependent. The helper does all the effort to complete an activity 7 Patient refused to complete or attempt activity 9 The patient did not perform the activity before the current illness or injury 88 Not attempted due to Medical conditions or safety concerns Functional Abilities and Goals: Independent: Patient completed the activities by him/herself, with or without an assistive device, with no assistance from a helper. Needed Some Help: Patient needed partial assistance from another person to complete activities. Dependent: A helper completed the activities for the patient. Unknown: Not Applicable: pt. is confused, states he hasn't been ambulating but later states he could walk without assistive device PT Evaluation-Current Subjective Pt. says he has pain "all over." No objective pain rating given. Nurse states he has recently had pain meds, nursing would like patient to try getting up today. Pt/Family Goals home Objective Patient Orientation: Person, Confused Problem Solving: Fair Attachments: Oxygen, Drains, Ramos Catheter, IV ROM/Strength ROM Upper Extremities decreased (B) ROM Lower Extremities minimal AROM (B) LE Strength Upper Extremities diminished Strength Lower Extremities grossly 2/5 Integumentary/Posture Integumentary see nursing notes Bladder Incontinence: Ramos Cath Posture kyphotic Neuromuscular (Tone, Coordination, Reflexes) diminished Sensory Vision: Functional Hearing: Functional Hand Dominance: Right Sensation Right Lower Extremit: Impaired Sensation Left Lower Extremity: Impaired Transfers Therapy Code Descriptions/Definitions Functional [place] Measure: 0=Not Assessed/NA 4=Minimal Assistance 1=Total Assistance 5=Supervision or Setup 2=Maximal Assistance 6=Modified [place] 3=Moderate Assistance 7=Complete [place] Transfers (B, C, W/C) (FIM): 1 Scootin (max A x 3) Rollin Supine to/from Sit: 1 (max A x 3) Balance Sitting Static: Poor Sitting Dynamic: Poor Assessment/Needs Pt. is a 78 y.o. male with decreased mobility and strength following surgical procedure. Pt. has been on bedrest for several days, nursing states he is ok to participate in therapy. Pt. is currently dependent for supine to sit transfers and had poor sitting balance at EOB. Pt. minimally followed cues for LE AROM. Pt. would benefit from skilled PT to improve mobility and strength for return home. Rehab Potential: Fair PT Short Term Goals Short Term Goals Time Frame: Jul 20, 2019 Transfers (B,C,W/C) (FIM): 3 Gait (FIM): 1 Gait Distance Comment: 10' Gait Level of Assist: 4 Gait Assistive Device: FWW PT Skilled Nursing Goals Skilled Nursing Goals PT Skilled Nursing Goals Time Frame: Aug 06, 2019 Transfers (B,C,W/C) (FIM): 4 Gait (FIM): 4 Gait distance (FIM): 9=807-79 ft Distance: 150 ft Gait Level of Assist: 4 Gait Assistive Device: FWW PT Plan Problem List Problem List: Activity Tolerance, Functional Strength, Safety, Balance, Gait, Transfer, Bed Mobility, ROM Treatment/Plan Treatment Plan: Continue Plan of Care Treatment Plan: Bed Mobility, Concurrent Therapy, Education, Functional Activity Jesus Alberto, Functional Strength, Gait, Safety, Therapeutic Exercise, Transfers Treatment Duration: Aug 06, 2019 Frequency: 6 times per week Estimated Hrs Per Day: .25 hour per day Patient and/or Family Agrees t: Yes Time/GCodes Time In: 956 Time Out: 1016 Total Billed Treatment Time: 20 Total Billed Treatment 1, EV[facility]IG[facility] 10', FA 10' ILAN REDDY PT Jul 23, 2019 10:34
[2019-07-23] MEDS: RT-ALBUTEROL/IPRATROPIUM 3 ML (DUONEB) VIAL INH SCH ×3 (10:40→18:44)
[2019-07-23] MEDS ORDERED: ENOXAPARIN 40 MG/0.4 ML (LOVENOX) SYR SC SCH (11:00)
--- NOTE | 2019-07-23 11:04 | Progress Note - Hospitalist ---
Subjective HPI/CC On Admission Date Seen by Provider: Jul 23, 2019 Time Seen by Provider: 10:59 weakness Subjective/Events-last exam Pt sleeping but sitting up today. Denies any complaints. No pain. Only answered yes or no questions. Objective Exam Vital Signs Vital Signs Date Time Temp Pulse Resp B/P (MAP) Pulse Ox O2 Delivery O2 Flow Rate FiO2 07/23/19 10:46 96 Nasal Cannula 2.00 07/23/19 08:16 36.4 63 20 149/70 (96) Capillary Refill : Less Than 3 SecondsLess Than 3 Seconds General Appearance: No Apparent Distress, Other (drowsy) Respiratory: Lungs Clear, No Respiratory Distress Cardiovascular: Regular Rate, Rhythm, No Murmur Results/Procedures Lab Patient resulted labs reviewed. Assessment/Plan Assessment and Plan Assess & Plan/Chief Complaint Cervical spinal stenosis Slipped intravertebral disc Lumbar spinal stenosis - POD#4 s/p L2-3 laminectomy/medial facetectomies/excision of HNP Pain control improving with fentanyl patch but more ocnfused- will DC fentanyl patch today PT/OT following - Will need Lovenox as soon as ok with Ortho Orthopedic surgery consulted Delirium -Likely multifactorial (post op, steroids, opoids) -DC fentanyl patch -Check UA COPD - Pulm consulted, appreciate recs - MAT protocol Coronary artery disease -ASA and Plavix held for surgical intervention, per Dr. Bhatt - will resume today per ortho and cardiology notes HTN -Stable, continue home meds Diagnosis/Problems Diagnosis/Problems (1) CAD (coronary artery disease) Qualifiers: Coronary Disease-Associated Artery/Lesion type: bypass graft [place] vs. transplanted heart: [place] heart Associated angina: without angina Qualified Codes: I25.810 - Atherosclerosis of coronary artery bypass graft(s) without angina pectoris (2) Essential (primary) hypertension Status: Chronic (3) Neuroforaminal stenosis of spine Status: Acute (4) Slipped intervertebral disc Status: Acute Qualifiers: Spinal region: lumbar Qualified Codes: M51.26 - Other intervertebral disc displacement, lumbar region (5) Lumbar spinal stenosis Status: Acute Qualifiers: Neurogenic claudication status: unspecified Qualified Codes: M48.061 - Sp inal stenosis, lumbar region without neurogenic claudication (6) Cervical spinal stenosis Status: Acute (7) Generalized weakness Status: Acute (8) Incidental durotomy Status: Acute (9) Delirium Status: Acute Clinical Quality Measures DVT/VTE Risk/Contraindication: Risk Factor Score Per Nursin RFS Level Per Nursing on Admit: 4+=Very High KIZZY MEEKS MD Jul 23, 2019 11:04
[2019-07-23] MEDS ORDERED: HYDROmorphone 2 MG/ML VIAL (DILAUDID) IV PRN (11:15)
[2019-07-23 11:37] VITALS: BP 152/70
--- NOTE | 2019-07-23 12:30 | NUR ---
FENTANYL 25 MCG PATCH REMOVED. WASTED MED WITH ANASTACIO SIGALA RN.
[2019-07-23] MEDS: ASPIRIN E.C. 81 MG (ECOTRIN) TAB PO SCH (12:39)
[2019-07-23] MEDS: CLOPIDOGREL 75 MG (PLAVIX) TABLET PO SCH (12:39)
[2019-07-23 13:06] VITALS: BP 134/65
[2019-07-23 13:15] LABS: BILIRUBIN,URINE NEGATIVE (NEGATIVE); CLARITY,URINE SLIGHTLY CLOUDY; COLOR,URINE YELLOW; GLUCOSE, URINE (UA) NEGATIVE (NEGATIVE); KETONES,URINE NEGATIVE (NEGATIVE); LEUKOCYTE ESTERASE ,URINE 3+ (NEGATIVE); NITRITE,URINE POSITIVE (NEGATIVE); PH,URINE 6 (5-9); PROTEIN,URINE 2+ (NEGATIVE); UROBILINOGEN,URINE 1 MG/DL (NORMAL)
[2019-07-23 13:26] LABS: BACTERIA,URINE MODERATE /HPF; SQUAMOUS EPITHELIAL CELL,UR RARE /HPF
--- NOTE | 2019-07-23 13:35 | Cardiology Progress Note ---
Cardiology SOAP Progress Note Subjective: No chest pain. Objective: I&O/Vital Signs 07/24/19 07/24/19 07/24/19 07/24/19 04:00 06:47 07:00 08:00 Temp 36.4 Pulse 60 77 Resp 14 B/P (MAP) 135/68 (90) Pulse Ox 94 95 O2 Delivery Nasal Cannula Room Air Room Air O2 Flow Rate 2.00 07/24/19 07/24/19 07/24/19 07/24/19 08:00 11:14 11:45 13:00 Temp 36.6 37.0 Pulse 83 69 81 Resp 24 20 B/P (MAP) 138/78 (98) 152/88 (109) Pulse Ox 98 97 96 O2 Delivery Room Air Room Air Room Air 07/24/19 14:41 Pulse Ox 96 O2 Delivery Room Air 07/24/19 00:00 Intake Total 650 ml Output Total 1100 ml Balance -450 ml Constitutional: AAO x 3 Respiratory: chest is bilaterally symmetric, lungs clear to auscultation Cardiovascular: regular rate-rhythm, S1 and S2 Gastrointestional: soft, audible bowel sounds Extremities: normal range of motion, non-tender, normal inspection, no lower extremity edema bilateral Neurologic/Psychiatric: no motor/sensory deficits, alert, normal mood/affect, oriented x 3 Skin: normal color Results/Procedures: Labs Microbiology 07/18/19 MRSA Screen - Final, Complete MRSA not isolated A/P: Assessment/Dx: Chest pain Coronary artery disease Herniated disc Hypertension Hyperlipidemia Plan: Spinal stenosis, slipped disc, status post L2-3 laminectomy done on July 20, 2019, still having significant back pain Chest pain, chronic stable angina, no active chest pain today. Continue to monitor Coronary artery disease, history of CABG, multiple intervention the past, recent cardiac catheterization with drug-eluting stent deployment to the vein graft to the diagonal artery, had a patent GRACE to LAD with patent stent beyond the anastomosis in the LAD, small vessel disease otherwise done by Dr. Perez in [facility]. Start Plavix. Hypertension, continue to monitor blood pressure Sinus bradycardia. Secondary to medication, monitor blood pressure Hyperlipidemia, maintained on statin Generalized weakness, lower and upper extremity weakness, cervical spinal stenosis with slipped disc, s/p L 2-[address] Bhatt earlier this morning. Dementia Thank you for your consultation. Please call me if you have any questions. Gilda Mcelroy MD, FACP, FACC, FSCAI, FHRS, CCDS Interventional Cardiology Cardiac Electrophysiology Vascular Medicine and Endovascular Interventions Jeffery MCELROY MD Jul 23, 2019 13:35
[2019-07-23 16:00] VITALS: BP 136/80
--- NOTE | 2019-07-23 16:30 | NUR ---
HEMOVAC DRAIN REMOVED FROM BACK . FLORIDALMA. WELL. CHANGED DRESSING TO BACK. AREA TO MIDDLE LOWER BACK WITH STERI-STRIPS IN PLACE. STERILE ISLAND DRESSING APPLIED. SL. EDEMA AROUND INC. NO DRAINAGE NOTED.
--- NOTE | 2019-07-23 18:01 | NUR ---
DANGLED ON SIDE OF BED X 45 MIN. FLORIDALMA. WELL WITH MOD/MAX ASSISTANCE ON SITTING UP. UNABLE TO STAND TO GET IN CHAIR. KNEES WEAK AND UNABLE TO BEAR WT. AND STRAIGHTEN KNEES. CHEERFUL AND SMILING. DENIES PAIN AT THIS TIME.
--- NOTE | 2019-07-23 19:07 | NUR ---
Dr. Ruvalcaba notified of UA results. New order rec to start Rocephin 1gm now & q 24 hours.
[2019-07-23] MEDS ORDERED: cefTRIAXone 1,000 MG IV (ROCEPHIN) VIAL ONE (19:30)
[2019-07-23] MEDS ORDERED: risperiDONE 0.25 MG (RisperDAL) TAB ONE (19:30)
[2019-07-23] MEDS ORDERED: WATER (STERILE) FOR INJECTION 10 ML ONE (19:31)
[2019-07-23 19:41] VITALS: BP 144/74
[2019-07-23] MEDS: cefTRIAXone FOR IV USE 1,000 MG in WATER (STERILE) FOR INJECTION 10 ML IV SCH (19:48)
[2019-07-23] MEDS: amLODIPine 10 MG (NORVASC) TAB PO SCH (19:50)
[2019-07-23] MEDS: DONEPEZIL 10 MG (ARICEPT) TAB PO SCH (19:50)
[2019-07-23] MEDS: CYCLOBENZAPRINE 10 MG (FLEXERIL) TAB PO PRN (19:50)
--- NOTE | 2019-07-23 19:50 | NUR ---
Alert, oriented and pleasant at this time.
[2019-07-23] MEDS: risperiDONE 0.25 MG (RisperDAL) TAB PO SCH (19:51)
[2019-07-23] MEDS: hydrOXYzine (ATARAX) 10 MG TAB PO PRN (19:51)
[2019-07-23] MEDS: TERAZOSIN 5 MG (HYTRIN) CAPSULE PO SCH (19:51)
[2019-07-24] VITALS (7 sets, daily range): BP systolic 117–152; BP diastolic 67–88
[2019-07-24] MEDS: DEXAMETHASONE 4 MG TAB (DECADRON) PO SCH ×4 (06:41→23:27)
[2019-07-24] MEDS: LACTOBACILLUS ACIDOPHILUS (PROBIOTIC) CAPSULE PO SCH ×3 (06:41→16:38)
[2019-07-24] MEDS: CATHETER FLUSH 10 ML SYR IV SCH ×3 (06:42→20:40)
[2019-07-24] MEDS: NS IV 1000 ML 1,000 ML IV SCH ×2 (06:43→18:34)
[2019-07-24] MEDS: RT-ALBUTEROL/IPRATROPIUM 3 ML (DUONEB) VIAL INH SCH ×4 (06:47→19:20)
--- NOTE | 2019-07-24 06:52 | NUR ---
PATIENT IS IN GOOD SPIRITS TODAY; HE TOOK HIS SVN BT AND TOLERATED IT WELL; PATIENT WAS ON RA WHEN RT ENTERED THE PATIENTS ROOM AND WAS SATTING 95% SO RT LEFT PATIENT ON RA AT THIS TIME. NO DISTRESS WAS NOTED
--- NOTE | 2019-07-24 07:59 | Pulmonary Progress Note ---
Subjective Time Seen by a Provider: 07:59 Subjective/Events-last exam No complications noted. Sepsis Event Evaluation Height, Weight, BMI Height: '" Weight: lbs. oz. kg; 29.48 BMI Method: Exam Exam Vital Signs Date Time Temp Pulse Resp B/P (MAP) Pulse Ox O2 Delivery O2 Flow Rate FiO2 07/24/19 07:00 77 07/24/19 06:47 95 Room Air 07/24/19 04:00 36.4 60 14 135/68 (90) 94 Nasal Cannula 2.00 07/24/19 01:28 66 07/24/19 00:00 36.8 72 18 151/73 (99) 94 Nasal Cannula 2.00 07/23/19 19:50 Nasal Cannula 3.00 07/23/19 19:41 37.3 80 16 144/74 (97) 96 Nasal Cannula 2.00 07/23/19 19:00 70 07/23/19 18:45 94 Nasal Cannula 2.00 07/23/19 16:00 37.4 65 16 136/80 (98) 98 Nasal Cannula 2.00 07/23/19 14:50 93 Nasal Cannula 2.00 07/23/19 13:06 36.8 60 16 134/65 (88) 97 Nasal Cannula 3.00 07/23/19 13:00 61 07/23/19 11:37 36.4 61 16 152/70 (97) 98 Nasal Cannula 3.00 07/23/19 10:46 96 Nasal Cannula 2.00 07/23/19 08:16 36.4 63 20 149/70 (96) 96 Nasal Cannula 3.00 07/23/19 08:00 97 Nasal Cannula 2.00 I & O 07/24/19 07:00 Intake Total 2125 ml Output Total 2125 ml Balance 0 ml Height & Weight Height: '" Weight: lbs. oz. kg; 29.48 BMI Method: General Appearance: No Apparent Distress, Other (drowsy) HEENT: PERRL/EOMI, Pharynx Normal Neck: Normal Inspection, Supple Respiratory: Lungs Clear, No Respiratory Distress Cardiovascular: Regular Rate, Rhythm, No Murmur Capillary Refill: Less Than 3 Seconds Peripheral Pulses: 2+ Dorsalis Pedis (R), 2+ Left Dors-Pedis (L), 2+ Radial Pulses (R), 2+ Radial Pulses (L) Gastrointestinal: soft, no organomegaly, no pulsatile mass, tenderness (RUQ and RLQ ) Extremity: Normal Inspection, No Pedal Edema, Calf Tenderness Neurologic/Psychiatric: Alert, Oriented x3 Skin: Normal Color, Warm/Dry Lymphatic: No Adenopathy Assessment/Plan Assessment/Plan Cervical spinal stenosis/ Lumbar spinal stenosis -s/p L2-3 laminectomy PT/OT following COPD -COPD is stable continue SVNS -nebulizers QID -IS -Monitor CAD with hx of CABG -Cardiology following HTN TAN PALOMARES DO Jul 24, 2019 07:59
[2019-07-24] MEDS: DOCUSATE CALCIUM 240 MG (SURFAK) CAP PO SCH ×2 (08:04→21:01)
[2019-07-24] MEDS: SENNA W/DOCUSATE (SENOKOT S) TABLET PO SCH ×2 (08:04→20:44)
[2019-07-24] MEDS: TOLTERODINE LA 4 MG (DETROL) CAP PO SCH (08:47)
[2019-07-24] MEDS: CARVEDILOL 3.125 MG (COREG) TABLET PO SCH ×2 (08:47→20:40)
[2019-07-24] MEDS: LORATADINE (CLARITIN) 10 MG TAB PO SCH (08:47)
[2019-07-24] MEDS: ASPIRIN E.C. 81 MG (ECOTRIN) TAB PO SCH (08:47)
[2019-07-24] MEDS: LOSARTAN 50 MG (COZAAR) TAB PO SCH (08:47)
[2019-07-24] MEDS: CLOPIDOGREL 75 MG (PLAVIX) TABLET PO SCH (08:47)
[2019-07-24] MEDS: PANTOPRAZOLE 40 MG (PROTONIX) TAB PO SCH (08:49)
--- NOTE | 2019-07-24 14:44 | NUR ---
At the end of the RT on Days Shift patient was on RA doing good; no distress was noted throughout her shift.
--- NOTE | 2019-07-24 15:08 | Cardiology Progress Note ---
Cardiology SOAP Progress Note Subjective: No cardiac complaints. Objective: I&O/Vital Signs 07/24/19 07/24/19 07/24/19 07/24/19 04:00 06:47 07:00 08:00 Temp 36.4 Pulse 60 77 Resp 14 B/P (MAP) 135/68 (90) Pulse Ox 94 95 O2 Delivery Nasal Cannula Room Air Room Air O2 Flow Rate 2.00 07/24/19 07/24/19 07/24/19 07/24/19 08:00 11:14 11:45 13:00 Temp 36.6 37.0 Pulse 83 69 81 Resp 24 20 B/P (MAP) 138/78 (98) 152/88 (109) Pulse Ox 98 97 96 O2 Delivery Room Air Room Air Room Air 07/24/19 14:41 Pulse Ox 96 O2 Delivery Room Air 07/24/19 00:00 Intake Total 650 ml Output Total 1100 ml Balance -450 ml Constitutional: AAO x 3 Respiratory: chest is bilaterally symmetric, lungs clear to auscultation Cardiovascular: regular rate-rhythm, S1 and S2 Gastrointestional: soft, audible bowel sounds Extremities: normal range of motion, non-tender, normal inspection, no lower extremity edema bilateral Neurologic/Psychiatric: no motor/sensory deficits, alert, normal mood/affect, oriented x 3 Skin: normal color Results/Procedures: Labs Microbiology 07/18/19 MRSA Screen - Final, Complete MRSA not isolated A/P: Assessment/Dx: Chest pain Coronary artery disease Herniated disc Hypertension Hyperlipidemia Plan: Spinal stenosis, slipped disc, status post L2-3 laminectomy done on July 20, 2019, still having significant back pain Chest pain, chronic stable angina, no active chest pain today. Continue to monitor Coronary artery disease, history of CABG, multiple intervention the past, recent cardiac catheterization with drug-eluting stent deployment to the vein graft to the diagonal artery, had a patent GRACE to LAD with patent stent beyond the anastomosis in the LAD, small vessel disease otherwise done by Dr. Perez in [facility]. Plavix started yesterday. Hypertension, continue to monitor blood pressure Sinus bradycardia. Secondary to medication, monitor blood pressure Hyperlipidemia, maintained on statin Generalized weakness, lower and upper extremity weakness, cervical spinal stenosis with slipped disc, s/p L 2-[address] Bhatt earlier this morning. Dementia Thank you for your consultation. Please call me if you have any questions. Gilda Mcelroy MD, FACP, FACC, FSCAI, FHRS, CCDS Interventional Cardiology Cardiac Electrophysiology Vascular Medicine and Endovascular Interventions Jeffery MCELROY MD Jul 24, 2019 15:08
[2019-07-24] MEDS: HYDROcodone/APAP 5 MG/325 MG (LORTAB) TAB PO PRN ×2 (16:39→20:40)
--- NOTE | 2019-07-24 18:05 | Progress Note - Hospitalist ---
Subjective HPI/CC On Admission Date Seen by Provider: Jul 24, 2019 (n) Time Seen by Provider: 10:30 weakness Subjective/Events-last exam Pt reports feeling much better. Mood improved. Still having pain but improving and weakness resolving. Objective Exam Vital Signs Vital Signs Date Time Temp Pulse Resp B/P (MAP) Pulse Ox O2 Delivery O2 Flow Rate FiO2 07/24/19 19:58 36.9 91 18 117/67 (84) 96 Room Air 07/24/19 04:00 2.00 Capillary Refill : Less Than 3 SecondsLess Than 3 Seconds General Appearance: No Apparent Distress, WD/WN Respiratory: Lungs Clear, No Accessory Muscle Use, No Respiratory Distress Cardiovascular: Regular Rate, Rhythm, No Murmur Neurologic/Psychiatric: Alert, Oriented x3, Other (mood much improved) Results/Procedures Lab Patient resulted labs reviewed. Assessment/Plan Assessment and Plan Assess & Plan/Chief Complaint Cervical spinal stenosis Slipped intravertebral disc Lumbar spinal stenosis - POD#5 s/p L2-3 laminectomy/medial facetectomies/excision of HNP Pain control improving with current regimen PT/OT following - Will need Lovenox as soon as ok with Ortho Orthopedic surgery consulted Delirium -Likely multifactorial (post op, steroids, opoids) -DC fentanyl patch -UA consistent with UTI UTI - Continue rocephin COPD - Pulm consulted, appreciate recs - MAT protocol Coronary artery disease -ASA and Plavix resumed HTN -Stable, continue home meds Diagnosis/Problems Diagnosis/Problems (1) CAD (coronary artery disease) Qualifiers: Coronary Disease-Associated Artery/Lesion type: bypass graft [place] vs. transplanted heart: [place] heart Associated angina: without angina Qualified Codes: I25.810 - Atherosclerosis of coronary artery bypass graft(s) without angina pectoris (2) Essential (primary) hypertension Status: Chronic (3) Neuroforaminal stenosis of spine Status: Acute (4) Slipped intervertebral disc Status: Acute Qualifiers: Spinal region: lumbar Qualified Codes: M51.26 - Other intervertebral disc displacement, lumbar region (5) Lumbar spinal stenosis Status: Acute Qualifiers: Neurogenic claudication status: unspecified Qualified Codes: M48.061 - Spinal stenosis, lumbar region without neurogenic claudication (6) Cervical spinal stenosis Status: Acute (7) Generalized weakness Status: Acute (8) Incidental durotomy Status: Acute (9) Delirium Status: Acute Clinical Quality Measures DVT/VTE Risk/Contraindication: Risk Factor Score Per Nursin RFS Level Per Nursing on Admit: 4+=Very High KIZZY MEEKS MD Jul 24, 2019 18:05
[2019-07-24] MEDS: cefTRIAXone FOR IV USE 1,000 MG in WATER (STERILE) FOR INJECTION 10 ML IV SCH (18:06)
[2019-07-24] MEDS: hydrOXYzine (ATARAX) 10 MG TAB PO PRN (20:40)
[2019-07-24] MEDS: TERAZOSIN 5 MG (HYTRIN) CAPSULE PO SCH (20:40)
[2019-07-24] MEDS: risperiDONE 0.25 MG (RisperDAL) TAB PO SCH (20:40)
[2019-07-24] MEDS: DONEPEZIL 10 MG (ARICEPT) TAB PO SCH (20:40)
[2019-07-24] MEDS: MELATONIN 3 MG TABLET PO PRN (20:40)
[2019-07-24] MEDS: CYCLOBENZAPRINE 10 MG (FLEXERIL) TAB PO PRN (20:40)
[2019-07-24] MEDS: amLODIPine 10 MG (NORVASC) TAB PO SCH (20:40)
--- NOTE | 2019-07-24 22:30 | Progress Note ---
Standard Progress Note Progress Notes/Assess & Plan Date Seen by a Provider: Jul 24, 2019 Time Seen by a Provider: 13:00 Progress/Assessment & Plan Pt ART, pain controlled, mobilized OOB without symptoms of persistent CSF leak, no cp/sob, no complaints. VSSAF B/L LE neuromotor function improving, RLE now with near normal motor function ABD soft/NT Breathing well on RA Dressings c/d/i S/P L2-3 laminectomy/excision of HNP, incidental durotomy with repair, POD #5 Orthopedically stable Continue to mobilize OOB with PT/OT, LSO brace when OOB Current pain control regimen Bowel regimen SCDs/ISB OK with d/c to inpatient rehab from orthopedic standpoint ADAM HDEZ DO Jul 24, 2019 22:30
[2019-07-25 04:20] VITALS: BP 147/75
[2019-07-25] MEDS: CATHETER FLUSH 10 ML SYR IV SCH ×3 (06:15→20:56)
[2019-07-25] MEDS: DEXAMETHASONE 4 MG TAB (DECADRON) PO SCH ×3 (06:15→17:19)
[2019-07-25] MEDS: LACTOBACILLUS ACIDOPHILUS (PROBIOTIC) CAPSULE PO SCH ×3 (06:15→17:19)
[2019-07-25] MEDS: HYDROcodone/APAP 5 MG/325 MG (LORTAB) TAB PO PRN ×3 (06:18→17:19)
[2019-07-25] MEDS: RT-ALBUTEROL/IPRATROPIUM 3 ML (DUONEB) VIAL INH SCH ×4 (07:02→22:04)
--- NOTE | 2019-07-25 07:45 | Pulmonary Progress Note ---
Subjective Time Seen by a Provider: 08:23 Subjective/Events-last exam No complications noted. Pt is feeling better. Sepsis Event Evaluation Height, Weight, BMI Height: '" Weight: lbs. oz. kg; 29.48 BMI Method: Exam Exam Vital Signs Date Time Temp Pulse Resp B/P (MAP) Pulse Ox O2 Delivery O2 Flow Rate FiO2 07/25/19 07:04 94 Room Air 07/25/19 07:00 61 07/25/19 04:20 36.4 58 20 147/75 (99) 92 Room Air 07/25/19 01:00 55 07/24/19 23:20 36.7 62 21 127/75 (92) Room Air 07/24/19 19:58 36.9 91 18 117/67 (84) 96 Room Air 07/24/19 19:45 Room Air 07/24/19 19:20 94 Room Air 07/24/19 19:00 90 07/24/19 16:25 37.0 84 20 128/81 (97) 96 Room Air 07/24/19 14:41 96 Room Air 07/24/19 13:00 81 07/24/19 11:45 37.0 69 20 152/88 (109) 96 Room Air 07/24/19 11:14 97 Room Air 07/24/19 08:00 36.6 83 24 138/78 (98) 98 Room Air 07/24/19 08:00 Room Air I & O 07/25/19 07:00 Intake Total 2170 ml Output Total 2825 ml Balance -655 ml Height & Weight Height: '" Weight: lbs. oz. kg; 29.48 BMI Method: General Appearance: No Apparent Distress, WD/WN HEENT: PERRL/EOMI, Pharynx Normal Neck: Normal Inspection, Supple Respiratory: Lungs Clear, No Accessory Muscle Use, No Respiratory Distress Cardiovascular: Regular Rate, Rhythm, No Murmur Capillary Refill: Less Than 3 Seconds Peripheral Pulses: 2+ Dorsalis Pedis (R), 2+ Left Dors-Pedis (L), 2+ Radial Pulses (R), 2+ Radial Pulses (L) Gastrointestinal: soft, no organomegaly, no pulsatile mass, tenderness (RUQ and RLQ ) Extremity: Normal Inspection, No Pedal Edema, Calf Tenderness Neurologic/Psychiatric: Alert, Oriented x3, Other (mood much improved) Skin: Normal Color, Warm/Dry Lymphatic: No Adenopathy Assessment/Plan Assessment/Plan Cervical spinal stenosis/ Lumbar spinal stenosis -s/p L2-3 laminectomy PT/OT following COPD -COPD is stable continue SVNS -nebulizers QID -IS -Monitor CAD with hx of CABG -Cardiology following HTN TAN PALOMARES DO Jul 25, 2019 07:45
[2019-07-25] MEDS: PANTOPRAZOLE 40 MG (PROTONIX) TAB PO SCH (07:51)
[2019-07-25] MEDS: LOSARTAN 50 MG (COZAAR) TAB PO SCH (07:51)
[2019-07-25] MEDS: TOLTERODINE LA 4 MG (DETROL) CAP PO SCH (07:51)
[2019-07-25] MEDS: SENNA W/DOCUSATE (SENOKOT S) TABLET PO SCH ×2 (07:51→20:51)
[2019-07-25] MEDS: DOCUSATE CALCIUM 240 MG (SURFAK) CAP PO SCH ×2 (07:51→20:55)
[2019-07-25] MEDS: LORATADINE (CLARITIN) 10 MG TAB PO SCH (07:52)
[2019-07-25] MEDS: CLOPIDOGREL 75 MG (PLAVIX) TABLET PO SCH (07:52)
[2019-07-25] MEDS: ASPIRIN E.C. 81 MG (ECOTRIN) TAB PO SCH (07:52)
[2019-07-25] MEDS: CARVEDILOL 3.125 MG (COREG) TABLET PO SCH ×2 (07:52→20:52)
[2019-07-25] MEDS: NS IV 1000 ML 1,000 ML IV SCH (07:52)
--- NOTE | 2019-07-25 07:54 | NUR ---
prior to a.m. medications pulse was 72 b?p was 134/80.
[2019-07-25 08:00] VITALS: BP 134/71
--- NOTE | 2019-07-25 09:12 | NUR ---
IRF Evaluation Order received to evaluate patient for the ARU. Chart review complete and findings discussed with Dr. Justice - patient accepted. Anticipate admission, 07/26/19. Thank you for this referral.
--- NOTE | 2019-07-25 09:24 | Physical Therapy Daily Note ---
PT Daily Note-Current Subjective Patient in bed pre tx, agrees to PT, has 8/10 pain in back, hips, and knees. Patient states his nurse is aware of his pain and he has had pain meds. Appearance Patient in recliner post tx with nurse call, phone, tray, all needs met. Mental Status Patient Orientation: Person, Place, Situation Attachments: IV Transfers Therapy Code Descriptions/Definitions Functional [place] Measure: 0=Not Assessed/NA 4=Minimal Assistance 1=Total Assistance 5=Supervision or Setup 2=Maximal Assistance 6=Modified [place] 3=Moderate Assistance 7=Complete [place] Therapy Quality Codes: 6 Independent with activity with or without an assistive device 5 Patient requires set up or clean up by helper. Patient completes activity by themselves 4 Supervision or touching assist (CGA). [place] provide cues , steadying assist 3 The helper provides less than half the effort to complete the activity 2 The helper provides more than half the effort to complete the activity 1 Dependent. The helper does all the effort to complete an activity 7 Patient refused to complete or attempt activity 9 The patient did not perform the activity before the current illness or injury 88 Not attempted due to Medical conditions or safety concerns Transfers (B, C, W/C) (FIM): 2 Scootin Rollin Supine to/from Sit: 3 Sit to/from Stand: 2 Bed to/from Chair: 2 Mod assist to scoot forward on the bed, max assist to transfer. Patient was able to perform sit to stand x3 with mod assist. His legs were able to bear a minimal amount of weight. Weight Bearing Right Lower Extremity: Right Weight Bearing/Tolerated Left Lower Extremity: Left Weight Bearing/Tolerated Exercises Seated Therapy Exercises: Ankle pumps, Long arc quads Seated Reps: 15 Treatments bed mobility and transfers, LE exercise Assessment Current Status: Fair Progress improved LE strength PT Short Term Goals Short Term Goals Time Frame: Jul 20, 2019 Transfers (B,C,W/C) (FIM): 3 Gait (FIM): 1 Gait Distance Comment: 10' Gait Level of Assist: 4 Gait Assistive Device: FWW PT Anode Rebuilder Goals Anode Rebuilder Goals PT Usp Goals Time Frame: Aug 06, 2019 Transfers (B,C,W/C) (FIM): 4 Gait (FIM): 4 Gait distance (FIM): 3=054-81 ft Distance: 150 ft Gait Level of Assist: 4 Gait Assistive Device: FWW PT Plan Problem List Problem List: Activity Tolerance, Functional Strength, Safety, Balance, Gait, Transfer, Bed Mobility, ROM Treatment/Plan Treatment Plan: Continue Plan of Care Treatment Plan: Bed Mobility, Concurrent Therapy, Education, Functional Activity Jesus Alberto, Functional Strength, Gait, Safety, Therapeutic Exercise, Transfers Treatment Duration: Aug 06, 2019 Frequency: 6 times per week Estimated Hrs Per Day: .25 hour per day Patient and/or Family Agrees t: Yes Safety Risks/Education Patient Education: Transfer Techniques, Correct Positioning, Safety Issues Teaching Recipient: Patient Teaching Methods: Demonstration, Discussion Response to Teaching: Reinforcement Needed Time/GCodes Time In: 904 Time Out: 918 Total Billed Treatment Time: 14 Total Billed Treatment 1 visit FA ALANA CORDOVA PT Jul 25, 2019 09:24
--- NOTE | 2019-07-25 09:42 | Cardiology Progress Note ---
Subjective Date Seen by Provider: Jul 25, 2019 Time Seen by Provider: 09:40 Subjective/Events-last exam Patient is sitting in a chair, feeling better, back pain is better Review of Systems General: No Chills, No Night Sweats, No Fatigue, No Malaise, No Appetite, No Other HEENT: No Head Aches, No Visual Changes, No Eye Pain, No Ear Pain, No Dysphasia, No Sinus Congestion, No Post Nasal Drip, No Sore Throat, No Other Pulmonary: No Dyspnea, No Cough, No Pleuritic Chest Pain, No Other Cardiovascular: No: Chest Pain, Palpitations, Orthopnea, Paroxysmal Noc. Dyspnea, Edema, Lt Headedness, Other Objective-Cardiology Exam Last Set of Vital Signs Vital Signs 07/24/19 07/25/19 07/25/19 07/25/19 04:00 04:20 07:00 07:04 Temp 36.4 Pulse 61 Resp 20 B/P (MAP) 147/75 (99) Pulse Ox 94 O2 Delivery Room Air O2 Flow Rate 2.00 Capillary Refill : Less Than 3 SecondsLess Than 3 Seconds I&O Intake and Output 07/25/19 00:00 Intake Total 3395 ml Output Total 3200 ml Balance 195 ml Intake Oral 1385 ml IV Total 2010 ml Output Urine Total 3200 ml # Bowel Movements 2 General: Alert, Oriented X3, Cooperative HEENT: Atraumatic, PERRLA Neck: Supple, No JVD, No Thyromegaly Lungs: Clear to Auscultation, Normal Air Movement Heart: Normal S1, Normal S2, Other (Systolic murmur, S3) Abdomen: Normal Bowel Sounds, Soft, No Tenderness, No Hepatosplenomegaly, No Masses Extremities: No Clubbing, No Cyanosis, No Edema, Normal Pulses, No Tenderness/Swelling Skin: No Rashes, No Breakdown, No Significant Lesion Neuro: Normal Speech Psych/Mental Status: Mental Status NL, Mood NL A/P-Cardiology Admission Diagnosis Chest pain Coronary artery disease Herniated disc Hypertension Hyperlipidemia Assessment/Plan Spinal stenosis, slipped disc, status post L2-3 laminectomy done on July 20, 2019, reporting improvement Chest pain, chronic stable angina, no active chest pain today. Continue to monitor Coronary artery disease, history of CABG, multiple intervention the past, recent cardiac catheterization with drug-eluting stent deployment to the vein graft to the diagonal artery, had a patent GRACE to LAD with patent stent beyond the anastomosis in the LAD, small vessel disease otherwise done by Dr. Perez in [facility], currently back on Plavix. Continue to monitor Hypertension, continue to monitor blood pressure Sinus bradycardia. Secondary to medication, monitor blood pressure Hyperlipidemia, maintained on statin Generalized weakness, lower and upper extremity weakness, cervical spinal stenosis with slipped disc, s/p L 2-[address] Bhatt earlier this morning. Dementia Clinical Quality Measures DVT/VTE Risk/Contraindication: Risk Factor Score Per Nursin RFS Level Per Nursing on Admit: 4+=Very High CHRISTIANO DAVIS MD Jul 25, 2019 09:42
--- NOTE | 2019-07-25 11:42 | Occupational Ther Daily Note ---
OT Current Status-Daily Note Subjective Pt alert sitting in chair. Pt agrees to therapy. No c/o pain at this time. Mental Status/Objective Patient Orientation: Person, Place, Time, Situation Therapy Code Descriptions/Definitions Functional [place] Measure: 0=Not Assessed/NA 4=Minimal Assistance 1=Total Assistance 5=Supervision or Setup 2=Maximal Assistance 6=Modified [place] 3=Moderate Assistance 7=Complete [place] Attachments: IV ADL-Treatment Per PT note, pt is only able to stand with mod A for a short period of time. Using recliner, transported pt into bathroom to complete grooming at sink. Pt required increased time due to maneuvering IV pole and recliner chair to bathroom to perform grooming activities. Pt simulated donning/doffing shirt with hospital gown, able to lift over head and thread arms. Assist to snap hospital gown and manipulate IV tubing. After therapy, pt sitting in recliner with call light/phone in reach. All needs met in room. Grooming (FIM): 5 (Pt able to shave, brush hair and teeth by self sitting chair at sink. Set up. ) OT Short Term Goals Short Term Goals Grooming(FIM): 6 (met) Lower Body Dressing(FIM): 2 Toileting(FIM): 3 Transfers (B,C,W/C) (FIM): 3 1=Demonstrate adherence to instructed precautions during ADL tasks. 2=Patient will verbalize/demonstrate understanding of assistive devices/modifications for ADL. 3=Patient will improve strength/tolerance for activity to enable patient to perform ADL's. OT Detention Goals Direct Response Consultant Goals Eating (FIM): 7 Grooming(FIM): 6 Bathing(FIM): 3 Upper Body Dressing(FIM): 4 Lower Body Dressing(FIM): 3 Toileting(FIM): 4 Transfers (B,C,W/C) (FIM): 4 Toilet/Commode Transfer(FIM): 4 Tub Transfer(FIM): 4 Shower Transfer(FIM): 4 Additional Goals: 1-Demonstrate ADL Tasks, 2-Verbalize Understanding, 3- ImproveStrength/Jesus Alberto 1=Demonstrate adherence to instructed precautions during ADL tasks. 2=Patient will verbalize/demonstrate understanding of assistive devices/obdulio fications for ADL. 3=Patient will improve strength/tolerance for activity to enable patient to perform ADL's. OT Education/Plan Problem List/Assessment Assessment: Decreased UE Strength, Impaired Coordination, Impaired Self-Care Skills Discharge Recommendations Plan/Recommendations: Continue POC Treatment Plan/Plan of Care Patient would benefit from OT for education, treatment and training to promote independence in ADL's, mobility, safety and/or upper extremity function for ADL's. Plan of Care: ADL Retraining, Caregiver Training, Functional Mobility, UE Funct Exercise/Act Frequency: 5 times per week Estimated Hrs Per Day: .25 hour per day Agreement: Yes Rehab Potential: Fair Time/GCodes Start Time: 11:09 Stop Time: 11:34 Total Time Billed (hr/min): 25 Billed Treatment Time 1 visit- ADL 2 (25 min) SNEHA GARCIA Jul 25, 2019 11:42
--- NOTE | 2019-07-25 12:04 | Progress Note - Hospitalist ---
Subjective HPI/CC On Admission Date Seen by Provider: Jul 25, 2019 Time Seen by Provider: 09:30 weakness Subjective/Events-last exam He reports improved pain. His weakness is improving. He denies fevers and chills. He denies chest pain and dyspnea. He denies abdominal pain, nausea, vomiting, diarrhea, and dysuria. Objective Exam Vital Signs Vital Signs Date Time Temp Pulse Resp B/P (MAP) Pulse Ox O2 Delivery O2 Flow Rate FiO2 07/25/19 08:00 36.6 65 18 134/71 (92) 94 Room Air 07/24/19 04:00 2.00 Capillary Refill : Less Than 3 SecondsLess Than 3 Seconds General Appearance: No Apparent Distress, WD/WN Respiratory: Lungs Clear, Normal Breath Sounds, No Respiratory Distress Cardiovascular: Regular Rate, Rhythm, No Edema, No Murmur Gastrointestinal: Normal Bowel Sounds, Non Tender, Soft Extremity: Normal Inspection, Non Tender, No Pedal Edema Neurologic/Psychiatric: Alert, Oriented x3, Normal Mood/Affect Skin: Normal Color, Warm/Dry Lymphatic: No Adenopathy Results/Procedures Lab Patient resulted labs reviewed. Assessment/Plan Assessment and Plan Assess & Plan/Chief Complaint Cervical spinal stenosis Slipped intravertebral disc Lumbar spinal stenosis Pain regimen in place PT/OT following IRF evaluating, possible transfer tomorrow Coronary artery disease -Continue ASA and Plavix UTI -Continue ceftriaxone Delirium -Resolved HTN -Continue current regimen COPD -MAT protocol Diagnosis/Problems Diagnosis/Problems (1) Generalized weakness Status: Acute (2) Cervical spinal stenosis Status: Acute (3) Lumbar spinal stenosis Status: Acute Qualifiers: Neurogenic claudication status: unspecified Qualified Codes: M48.061 - Spinal stenosis, lumbar region without neurogenic claudication (4) Slipped intervertebral disc Status: Acute Qualifiers: Spinal region: lumbar Qualified Codes: M51.26 - Other intervertebral disc displacement, lumbar region (5) Neuroforaminal stenosis of spine Status: Acute Clinical Quality Measures DVT/VTE Risk/Contraindication: Risk Factor Score Per Nursin RFS Level Per Nursing on Admit: 4+=Very High FRANK DING MD Jul 25, 2019 12:04
[2019-07-25] MEDS: CYCLOBENZAPRINE 10 MG (FLEXERIL) TAB PO PRN ×2 (12:15→17:19)
[2019-07-25 12:36] VITALS: BP 111/72
[2019-07-25 16:00] VITALS: BP 104/66
[2019-07-25] MEDS: cefTRIAXone FOR IV USE 1,000 MG in WATER (STERILE) FOR INJECTION 10 ML IV SCH (18:19)
[2019-07-25 19:32] VITALS: BP 123/68
[2019-07-25] MEDS: risperiDONE 0.25 MG (RisperDAL) TAB PO SCH (20:51)
[2019-07-25] MEDS: DONEPEZIL 10 MG (ARICEPT) TAB PO SCH (20:51)
[2019-07-25] MEDS: amLODIPine 10 MG (NORVASC) TAB PO SCH (20:51)
[2019-07-25] MEDS: TERAZOSIN 5 MG (HYTRIN) CAPSULE PO SCH (20:51)
[2019-07-26 00:07] VITALS: BP 138/70
[2019-07-26] MEDS: DEXAMETHASONE 4 MG TAB (DECADRON) PO SCH ×2 (00:09→06:07)
[2019-07-26 04:36] VITALS: BP 143/81
[2019-07-26 05:13] LABS: HEMOGLOBIN 11.5 G/DL (13.3-17.7); MEAN PLATELET VOLUME 10.3 FL (7.4-10.4); RED CELL DISTRIBUTION WIDTH 13.3 % (10.0-14.5); WHITE BLOOD COUNT 11.6 10^3/uL (4.3-11.0)
[2019-07-26 05:30] LABS: BUN/CREATININE RATIO 35; CARBON DIOXIDE 22 MMOL/L (21-32); CHLORIDE 108 MMOL/L (98-107); CREATININE SERUM 0.71 MG/DL (0.60-1.30); GFR ESTIMATED > 60; GLUCOSE 148 MG/DL (70-105); MAGNESIUM 2.2 MG/DL (1.6-2.4); POTASSIUM 4.1 MMOL/L (3.6-5.0); SODIUM 139 MMOL/L (135-145)
[2019-07-26] MEDS: LACTOBACILLUS ACIDOPHILUS (PROBIOTIC) CAPSULE PO SCH (06:07)
[2019-07-26] MEDS: CATHETER FLUSH 10 ML SYR IV SCH (06:08)
[2019-07-26] MEDS: RT-ALBUTEROL/IPRATROPIUM 3 ML (DUONEB) VIAL INH SCH ×2 (07:32→10:58)
--- NOTE | 2019-07-26 07:52 | Cardiology Progress Note ---
Subjective Date Seen by Provider: Jul 26, 2019 Time Seen by Provider: 07:51 Subjective/Events-last exam Patient is laying down in bed. Denied any chest pain, no back pain Review of Systems General: No Chills, No Night Sweats, No Fatigue, No Malaise, No Appetite, No Other HEENT: No Head Aches, No Visual Changes, No Eye Pain, No Ear Pain, No Dysphasia, No Sinus Congestion, No Post Nasal Drip, No Sore Throat, No Other Pulmonary: No Dyspnea, No Cough, No Pleuritic Chest Pain, No Other Cardiovascular: No: Chest Pain, Palpitations, Orthopnea, Paroxysmal Noc. Dyspnea, Edema, Lt Headedness, Other Objective-Cardiology Exam Last Set of Vital Signs Vital Signs 07/24/19 07/26/19 07/26/19 07/26/19 04:00 04:36 07:00 07:32 Temp 36.1 Pulse 44 Resp 16 B/P (MAP) 143/81 (101) Pulse Ox 99 O2 Delivery Room Air O2 Flow Rate 2.00 Capillary Refill : Less Than 3 SecondsLess Than 3 Seconds I&O Intake and Output 07/26/19 00:00 Intake Total 2660 ml Output Total 2170 ml Balance 490 ml Intake Oral 1660 ml IV Total 1000 ml Output Urine Total 2170 ml General: Alert, Oriented X3, Cooperative HEENT: Atraumatic, PERRLA Neck: Supple, No JVD, No Thyromegaly Lungs: Clear to Auscultation, Normal Air Movement Heart: Normal S1, Normal S2, Other (Systolic murmur, S3) Abdomen: Normal Bowel Sounds, Soft, No Tenderness, No Hepatosplenomegaly, No Masses Extremities: No Clubbing, No Cyanosis, No Edema, Normal Pulses, No Tenderness/Swelling Skin: No Rashes, No Breakdown, No Significant Lesion Neuro: Normal Speech Psych/Mental Status: Mental Status NL, Mood NL Results Lab Laboratory Tests 07/26/19 04:40 07/26/19 04:42 A/P-Cardiology Admission Diagnosis Chest pain Coronary artery disease Herniated disc Hypertension Hyperlipidemia Assessment/Plan Spinal stenosis, slipped disc, status post L2-3 laminectomy done on July 20, 2019, reporting improvement Chest pain, chronic stable angina, no active chest pain today. Continue to monitor Coronary artery disease, history of CABG, multiple intervention the past, recent cardiac catheterization with drug-eluting stent deployment to the vein graft to the diagonal artery, had a patent GRACE to LAD with patent stent beyond the anastomosis in the LAD, small vessel disease otherwise done by Dr. Perez in [facility], currently back on Plavix. Continue to monitor Hypertension, continue to monitor blood pressure Sinus bradycardia. Secondary to medication, monitor blood pressure Hyperlipidemia, maintained on statin Generalized weakness, lower and upper extremity weakness, cervical spinal stenosis with slipped disc, s/p L 2-[address] Bhatt earlier this morning. Dementia Clinical Quality Measures DVT/VTE Risk/Contraindication: Risk Factor Score Per Nursin RFS Level Per Nursing on Admit: 4+=Very High CHRISTIANO DAVIS MD Jul 26, 2019 07:52
[2019-07-26 08:00] VITALS: BP 134/80
--- NOTE | 2019-07-26 08:00 | NUR ---
pRIOR TO AM MEDS HR 72 BP 134/80
--- NOTE | 2019-07-26 08:41 | Pulmonary Progress Note ---
Subjective Time Seen by a Provider: 08:40 Subjective/Events-last exam PT is doing well from pulmonary standpoint. Sepsis Event Evaluation Height, Weight, BMI Height: '" Weight: lbs. oz. kg; 29.48 BMI Method: Exam Exam Vital Signs Date Time Temp Pulse Resp B/P (MAP) Pulse Ox O2 Delivery O2 Flow Rate FiO2 07/26/19 07:32 99 Room Air 07/26/19 07:00 44 07/26/19 04:36 36.1 55 16 143/81 (101) 97 Room Air 07/26/19 01:00 51 07/26/19 00:07 36.5 58 16 138/70 (92) 93 Room Air 07/25/19 20:00 Room Air 07/25/19 19:32 36.6 84 16 123/68 (86) 98 Room Air 07/25/19 18:57 86 07/25/19 16:00 36.5 84 20 104/66 (79) 96 Room Air 07/25/19 14:45 94 Room Air 07/25/19 12:36 36.6 84 18 111/72 (85) 95 Room Air 07/25/19 12:25 79 I & O 07/26/19 07:00 Intake Total 2560 ml Output Total 1770 ml Balance 790 ml Height & Weight Height: '" Weight: lbs. oz. kg; 29.48 BMI Method: General Appearance: No Apparent Distress, WD/WN HEENT: PERRL/EOMI, Pharynx Normal Neck: Normal Inspection, Supple Respiratory: Lungs Clear, Normal Breath Sounds, No Respiratory Distress Cardiovascular: Regular Rate, Rhythm, No Edema, No Murmur Capillary Refill: Less Than 3 Seconds Peripheral Pulses: 2+ Dorsalis Pedis (R), 2+ Left Dors-Pedis (L), 2+ Radial Pulses (R), 2+ Radial Pulses (L) Gastrointestinal: soft, no organomegaly, no pulsatile mass, tenderness (RUQ and RLQ ) Extremity: Normal Inspection, Non Tender, No Pedal Edema Neurologic/Psychiatric: Alert, Oriented x3, Normal Mood/Affect Skin: Normal Color, Warm/Dry Lymphatic: No Adenopathy Results Lab Laboratory Tests 07/26/19 04:40 07/26/19 04:42 Assessment/Plan Assessment/Plan Cervical spinal stenosis/ Lumbar spinal stenosis -s/p L2-3 laminectomy PT/OT following COPD -COPD is stable continue SVNS -nebulizers QID -IS -Monitor CAD with hx of CABG -Cardiology following HTN TAN PALOMARES DO Jul 26, 2019 08:41
--- NOTE | 2019-07-26 09:09 | OPERATIVE REPORT ---
DATE OF SERVICE: 07/19/2019 PREPROCEDURE DIAGNOSES: 1. 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 2. Right paracentral herniated nucleus pulposus at L2-L3. 3. Lumbar spondylosis at L2-L3 with radiculopathy. POST-PROCEDURE DIAGNOSES: 1. 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 2. Right paracentral herniated nucleus pulposus at L2-L3. 3. Lumbar spondylosis at L2-L3 with radiculopathy. PROCEDURES: 1. L2-L3 laminectomy/medial facetectomies with excision of right paracentral herniated nucleus pulposus. 2. Incidental durotomy with repair. ATTENDING SURGEON: Dr. Adam Hdez. OCCUPATIONAL HEALTH RN: Adam Marlow PA-C; Mr. Marlow' assistance was required secondary to the complexity of the case, to hold the necessary retractors protecting vital neurovascular and soft tissue structures and to increase the efficiency and efficacy of the case; this case would not have been possible without the presence of an assistant district attorney. ANESTHESIA: General endotracheal. ESTIMATED BLOOD LOSS: 50 mL. COMPLICATIONS: Incidental durotomy with repair. DRAINS: Medium Hemovac deep to the fascia to gravity only. SPECIMENS: None. FLUIDS: Per anesthesia record. BRIEF HISTORY AND INDICATIONS: The patient is a very pleasant 78-year-old male, who presented to the [facility] Emergency Department on 07/12/2019 with moderate axial low back pain and severe right lower extremity pain. Additional associated symptoms and complaints included progressive motor and sensory deficits in both of his lower extremities, right greater than left to the degree that he was having trouble with ambulation. An MRI of the patient's lumbar spine obtained at the time of admission demonstrated severe osseous and soft tissue spinal stenosis at the L2-L3 level with a very large right paracentral herniated nucleus pulposus with an extruded fragment together, which was creating severe compression on the nerve roots and thecal sac at L2-L3 level. On exam, the patient had motor and sensory deficits in both the L2 and L3 dermatomal distributions of the right lower extremity. Given the patient's clinical history, level of disability in the presence of a progressive neurologic deficit, surgical decompression of the patient's lumbar spine was recommended. Surgical treatment was delayed secondary to the patient being on Plavix. It was recommended that surgical decompression of the neural elements of the spine was delayed until the patient could be off Plavix for several days so as to prevent the potential catastrophic-associated complication of epidural hematoma. The patient discussed the risks and benefits of holding his Plavix with both the hospitalist and his lead sprinkler. The patient agreed to accept the risk of holding his Plavix and agreed to proceed as recommended. I discussed the recommended surgical treatment with the patient in detail including the risks, benefits, potential complications, expected outcomes, indications and alternatives. Those risks that were discussed included, but were not limited to significant and possibly life-threatening bleeding, infection, spinal fluid leaks, paralysis, potential damage to surrounding neurovascular and soft tissue structures, iatrogenic instability, potential serious reactions to anesthesia, and potential need for secondary surgical procedures. The patient gave informed written consent to proceed as planned after all of his questions were addressed and answered to his satisfaction. PROCEDURE NOTE: After correctly identifying the patient in the preoperative holding area and after his operative site was appropriately marked, he was transferred to the operating room. Once in the operating room, he had successful induction of general endotracheal anesthesia, then he was transferred to a radiolucent Rangel OR table and placed in the prone position. All bony prominences were meticulously padded. Bilateral upper extremities were placed in the safe position. The operative site was then prepped and draped in the routine sterile fashion. Prior to beginning the case, we completed an operating room timeout with all parties involved in the case and agreement and verified appropriate infusion of prophylactic antibiotics. Using an 18-gauge spinal needle in the paraspinal soft tissues and lateral C-arm image, the L2-L3 spinal level was localized and marked on the skin with a sterile marking pen. After infusion of local anesthetic, a 10 blade scalpel was used to incise the skin and subcutaneous tissue. Bovie cautery and Hassan elevator were then used to perform bilateral paraspinal subperiosteal dissection, exposing the posterior elements at the L2-L3 level. A #4 [place] elevator was placed in L2-L3 interlaminar space and then lateral C-arm image confirmed that indeed L2-L3 spinal level had been localized and exposed. L2-L3 laminectomy/medial facetectomies was then performed with use of [place] rongeur, high-speed bur, and a series of [place] rongeurs and curettes. Once laminectomy was performed, we did encounter a very large right paracentral herniated nucleus pulposus with a large extruded fragment, which was creating a severe compression of the neural elements at L2-L3 level. This herniated nucleus pulposus and extruded fragment was removed in its entirety carefully with a series of curettes and pituitary rongeurs. During the decompression of the lateral recess on the right side, an incidental durotomy was created. This durotomy was repaired quite successfully with a running 6-0 Nurolon stitch. Adequate decompression of all of the neural elements was then confirmed with use of Tyler elevator and nerve hook. We supplemented our durotomy repair with Duragen sponge and Tisseel dural sealant. Once decompression and durotomy repair were complete, Valsalva maneuver performed per anesthesia intraoperatively confirmed that there were no persistent spinal fluid leaks prior to closure. Medium Hemovac drain was then placed deep to the fascia and placed on gravity suction only. The wound was then closed in layers in standard fashion using Stratafix suture for the deep fascia, 2-0 Vicryl for the subcutaneous tissue, and a running 4-0 Monocryl subcuticular stitch and Dermabond glue for the skin. The patient has sterile dressing applied followed by being awakened and extubated in the operating room without incident. He was then transferred to the PACU in stable condition and he tolerated the procedure quite well without complications. All counts were correct at the end of the case. Job ID: [id number] DocumentID: [id number] Dictated Date: 07/25/2019 16:13:16 White Work Cleaner Date: 07/26/2019 02:16:40 Dictated By: ADAM HDEZ
[2019-07-26] MEDS: ASPIRIN E.C. 81 MG (ECOTRIN) TAB PO SCH (10:09)
[2019-07-26] MEDS: LORATADINE (CLARITIN) 10 MG TAB PO SCH (10:09)
[2019-07-26] MEDS: CLOPIDOGREL 75 MG (PLAVIX) TABLET PO SCH (10:09)
[2019-07-26] MEDS: TOLTERODINE LA 4 MG (DETROL) CAP PO SCH (10:09)
[2019-07-26] MEDS: CARVEDILOL 3.125 MG (COREG) TABLET PO SCH (10:09)
[2019-07-26] MEDS: SENNA W/DOCUSATE (SENOKOT S) TABLET PO SCH (10:10)
[2019-07-26] MEDS: LOSARTAN 50 MG (COZAAR) TAB PO SCH (10:10)
[2019-07-26] MEDS: PANTOPRAZOLE 40 MG (PROTONIX) TAB PO SCH (10:10)
[2019-07-26] MEDS: DOCUSATE CALCIUM 240 MG (SURFAK) CAP PO SCH (10:10)
--- NOTE | 2019-07-26 10:23 | Discharge Summary ---
Discharge Summary Hospital Course Problems/Dx: (1) CAD (coronary artery disease) Status: Chronic Qualifiers: Qualified Codes: I25.810 - Atherosclerosis of coronary artery bypass graft(s) without angina pectoris (2) Essential (primary) hypertension Status: Chronic (3) Neuroforaminal stenosis of spine Status: Acute (4) Slipped intervertebral disc Status: Acute Qualifiers: Qualified Codes: M51.26 - Other intervertebral disc displacement, lumbar region (5) Lumbar spinal stenosis Status: Acute Qualifiers: Qualified Codes: M48.061 - Spinal stenosis, lumbar region without neurogenic claudication (6) Cervical spinal stenosis Status: Acute (7) Generalized weakness Status: Acute (8) Incidental durotomy Status: Acute (9) Delirium Status: Acute Hospital Course Date of Admission: Jul 14, 2019 at 14:27 Admission Diagnosis : Lower extremity weakness Family Physician/Provider: Noble Danielson DO Date of Discharge: 07/26/19 Discharge Diagnosis: Lumbar spinal stenosis, slipped intervertebral disc, cervical spinal stenosis Hospital Course: Fredo Miller is a 78yoM with H CAD with coronary stenting three weeks prior to admission at [facility] who presented with progressive lower extremity weakness and pain and was found to have lumbar stenosis with slipped intervertebral disc as well as cervical stenosis. Due to the severity of his weakness and patient's wishes, the risks and benefits were presented and his aspirin and Plavix were held and he underwent a L2-L3 laminectomy/medial facetectomies with excision of right paracentral herniated nucleus pulposus. There was an incidental durotomy which was also repaired. He did well post-operatively. His aspirin and Plavix were resumed several days after his surgery. He did suffer post-operative delirium due to multiple underlying etiologies (post-operative, advanced age, opioid analgesia, steroids) which resolved. He was transferred to inpatient rehabilitation for ongoing therapy. Labs and Pending Lab Test: Laboratory Tests 07/26/19 04:40: White Blood Count 11.6H, Red Blood Count 3.75L, Hemoglobin 11.5L, Hematocrit 34L , Mean Corpuscular Volume 92, Mean Corpuscular Hemoglobin 31, Mean Corpuscular Hemoglobin Concent 33, Red Cell Distribution Width 13.3, Platelet Count 270, Mean Platelet Volume 10.3 07/26/19 04:42: Sodium Level 139, Potassium Level 4.1, Chloride Level 108H, Carbon Dioxide Level 22, Anion Gap 9, Blood Urea Nitrogen 25H, Creatinine 0.71, Estimat Glomerular Filtration Rate > 60, BUN/Creatinine Ratio 35, Glucose Level 148H, Calcium Level 8.0L, Magnesium Level 2.2 Microbiology 07/18/19 MRSA Screen - Final, Complete MRSA not isolated 07/23/19 Urine Culture - Final, Complete Enterobacter aerogenes Home Meds Active Reported Coreg (Carvedilol) 25 Mg Tab 25 Mg PO BID Donepezil HCl 10 Mg Tablet 10 Mg PO HS Hydrocodone-Acetamin 5-325 mg (Hydrocodone/Acetaminophen) 1 Each Tablet 1 Tab PO Q6H PRN Terazosin HCl 5 Mg Capsule 5 Mg PO HS Amlodipine Besylate 10 Mg Tablet 10 Mg PO HS Protonix (Pantoprazole Sodium) 40 Mg Tablet.dr 40 Mg PO DAILY Detrol LA (Tolterodine Tartrate) 4 Mg Cap 4 Mg PO DAILY Losartan-Hctz 50-12.5 mg Tab (Losartan/Hydrochlorothiazide) 1 Each Tablet 1 Tab PO DAILY LAST FILLED 07-04-19 #30 Plavix (Clopidogrel Bisulfate) 75 Mg Tablet 75 Mg PO DAILY Naproxen 500 Mg Tablet 500 Mg PO BID Cetirizine HCl 10 Mg Tablet 10 Mg PO DAILY Tylenol Arthritis (Acetaminophen) 650 Mg Tablet.er 1,300 Mg PO BID TAKES 2 (650MG) TABLETS Gas-X (Simethicone) 125 Mg Tab.chew 125 Mg PO BID Zantac (Ranitidine HCl) 150 Mg Tablet 150 Mg PO BID Magnesium Oxide 420 Mg Tablet 420 Mg PO DAILY Aspirin EC (Aspirin) 81 Mg Tablet.dr 81 Mg PO DAILY Docusate Calcium 240 Mg Capsule 240 Mg PO BID Assessment/Pt Instructions Take medications as prescribed. Participate in physical therapy. Follow up with Dr. Bhatt, orthopedic surgery. Follow up with creative coordinator. Discharge Planning: <30 minutes discharge planning Discharge Instructions Discharge Diet: No Restrictions Activity as Tolerated: Yes Consultations Orthopedic surgery, cardiology, pulmonology Discharge Physical Examination Vital Signs Vital Signs Date Time Temp Pulse Resp B/P (MAP) Pulse Ox O2 Delivery O2 Flow Rate FiO2 07/26/19 08:00 36.6 72 18 134/80 (98) 96 Room Air 07/24/19 04:00 2.00 General Appearance: No Apparent Distress, WD/WN HEENT: PERRL/EOMI, Pharynx Normal Respiratory: Lungs Clear, Normal Breath Sounds, No Respiratory Distress Cardiovascular: Regular Rate, Rhythm, No Edema, No Murmur Gastrointestinal: Normal Bowel Sounds, Non Tender, Soft Extremity: Normal Inspection, Non Tender, No Pedal Edema Skin: Normal Color, Warm/Dry Neurologic/Psychiatric: Alert, Oriented x3, Motor Weakness, Other (tearful) Allergies: Coded Allergies: codeine (Verified Adverse Reaction, Severe, VOMITING, 07/12/19) Uncoded Allergies: TAPE (Allergy, Severe, BLISTERS, 07/12/19) Discharge Summary Date of Admission Jul 14, 2019 at 14:27 Date of Discharge Discharge Date: Jul 26, 2019 Discharge Time: 10:21 Admission Diagnosis Weakness Consults/Procedures Consulations orthopedic surgery, cardiology, pulmonology Procedures L2-L3 laminectomy/medial fasciectomies with excision of right paracentral herniated nucleus pulposus Discharge Diagnosis Cervical spinal stenosis Slipped intravertebral disc Lumbar spinal stenosis Pain regimen in place PT/OT following IRF evaluating, possible transfer tomorrow Coronary artery disease -Continue ASA and Plavix UTI -Continue ceftriaxone Delirium -Resolved HTN -Continue current regimen COPD -MAT protocol (1) Neuroforaminal stenosis of spine Status: Acute (2) Slipped intervertebral disc Status: Acute Qualifiers: Qualified Codes: M51.26 - Other intervertebral disc displacement, lumbar region (3) Lumbar spinal stenosis Status: Acute Qualifiers: Qualified Codes: M48.061 - Spinal stenosis, lumbar region without neurogenic claudication (4) Cervical spinal stenosis Status: Acute (5) CAD (coronary artery disease) Status: Chronic Qualifiers: Qualified Codes: I25.810 - Atherosclerosis of coronary artery bypass graft(s) without angina pectoris (6) Essential (primary) hypertension Status: Chronic (7) Generalized weakness Status: Acute (8) Incidental durotomy Status: Acute (9) Delirium Status: Acute Clinical Quality Measures DVT/VTE Risk/Contraindication: Risk Factor Score Per Nursin RFS Level Per Nursing on Admit: 4+=Very High FRANK DING MD Jul 26, 2019 10:20
--- NOTE | 2019-07-26 10:50 | NUR ---
FACE TO FACE REPORT GIVEN TO Leo RUSSELL RN AT THIS TIME.
--- NOTE | 2019-07-26 11:05 | NUR ---
PT TO REHAB WITH [facility] AT 1100
--- OUTSIDE RECORDS SUMMARY | 2019-08-02 20:24 | XMS REPORT ---
Author Author Migration, Doctor Organization [facility] Address Unknown Phone Unavailable Care Team Providers Care Transfer Controller Name Role Phone Migration, Doctor Unavailable Unavailable PROBLEMS Type Condition ICD9-CM Code JSS79-[id number] Code Onset Dates Condition Status SNOMED Code Problem Other chronic pain 338.29 Active 15548588 Problem Anxiety state, unspecified 300.00 Active 485876412 Problem Personal history of tobacco use, presenting hazards to health V15.82 Active 6544990188251 Problem Other general symptoms 780.99 Active 976527732 Problem Acute upper respiratory infections of unspecified site 465.9 Active 25780537 Problem Essential hypertension, benign 401.1 Active 9112978 ALLERGIES No Information ENCOUNTERS Encounter Location Date Diagnosis [facility] [address] [address] Jan, [facility] [address] [address] Jan, [facility] [address] [place] [address] Jan, [facility] [address] [address] Jan, [facility] [address] [place] [address] Dec, [facility] [address] [address] 16 Dec, 2012 [facility] [address] [id number] [id number] Dec, [facility] [address], [place] [address] 05 Dec, 2012 [facility] [address], [place] [address] Oct, IMMUNIZATIONS No Known Immunizations SOCIAL HISTORY Never Assessed REASON FOR VISIT EMR-[facility] [place] PLAN OF CARE VITAL SIGNS MEDICATIONS Unknown Medications RESULTS No Results PROCEDURES No Known procedures INSTRUCTIONS MEDICATIONS ADMINISTERED No Known Medications
--- OUTSIDE RECORDS SUMMARY | 2019-08-02 20:24 | XMS REPORT ---
Author Author Migration, Doctor Organization [facility] Address Unknown Phone Unavailable Care Team Providers Care Hourly Associate Name Role Phone Migration, Doctor Unavailable Unavailable PROBLEMS Type Condition ICD9-CM Code JMQ03-GR Code Onset Dates Condition Status SNOMED Code Problem Other chronic pain 338.29 Active 60239219 Problem Anxiety state, unspecified 300.00 Active 291228085 Problem Personal history of tobacco use, presenting hazards to health V15.82 Active 3785363645041 Problem Other general symptoms 780.99 Active 595388992 Problem Acute upper respiratory infections of unspecified site 465.9 Active 06212585 Problem Essential hypertension, benign 401.1 Active 0128218 ALLERGIES No Information ENCOUNTERS Encounter Location Date Diagnosis [facility] [address], [place] [address] Jan, [facility] [address] [address] Jan, [facility] [address], [place] [address] Jan, [facility] [address] [address] Jan, [facility] [address] [address] Dec, [facility] [address] [address] 16 Dec, [address] [facility] [address] [id number] [id number] Dec, [facility] [address] [address] 05 Dec, 2012 [facility] [address], [place] [address] Oct, IMMUNIZATIONS No Known Immunizations SOCIAL HISTORY Never Assessed REASON FOR VISIT EMR-[facility] PLAN OF CARE VITAL SIGNS MEDICATIONS Medication Instructions Dosage Frequency Start Date End Date Duration Status Carvedilol 12.5 mg 2 times per day Dec, Active losartan 50 mg 1 time per day Dec, Active cetirizine 10 mg 1 tablet by Oral route 1 daily Dec, Active Alprazolam 0.5 mg 1 Tablet by Oral route 1 time per day PRN at night, must last 2 months Dec, Active Aspirin by Oral [id number] po qd Oct, Active Ranexa 1,000 mg 1 Tablet by Oral route 2 times per day Dec, Active Reglan by Oral [id number] po BID Oct, Active Imdur 60 mg by Oral route 1 time per day 30 mg po qd Dec, Active Oxybutynin Chloride by Oral [id number] po BID Oct, Active Tylenol PM Extra Strength 25-500 mg 3 Tablet 1 time per day Dec, Active Oxycodone-Acetaminophen by Oral [id number] 1 tab po TID Oct, Active Plavix by Oral [id number] po qd Oct, Active Methocarbamol by Oral [id number] mg po BID Oct, Active amlodipine 5 mg 1 time per day Dec, Active Cymbalta 60 mg take 1 capsule (60 mg) by oral route once daily Oct, Active Zantac by Oral [id number] po qd Oct, Active RESULTS No Results PROCEDURES No Known procedures INSTRUCTIONS MEDICATIONS ADMINISTERED No Known Medications
--- OUTSIDE RECORDS SUMMARY | 2019-08-02 20:24 | XMS REPORT ---
Author Author Migration, Doctor Organization [facility] Address Unknown Phone Unavailable Care Team Providers Care Bank Manager Name Role Phone Migration, Doctor Unavailable Unavailable PROBLEMS Type Condition ICD9-CM Code TOG02-[place] Code Onset Dates Condition Status SNOMED Code Problem Other chronic pain 338.29 Active 58939381 Problem Anxiety state, unspecified 300.00 Active 649681789 Problem Personal history of tobacco use, presenting hazards to health V15.82 Active 0174141224234 Problem Other general symptoms 780.99 Active 687840933 Problem Acute upper respiratory infections of unspecified site 465.9 Active 40516570 Problem Essential hypertension, benign 401.1 Active 7383374 ALLERGIES No Information ENCOUNTERS Encounter Location Date Diagnosis [facility] [address] [address] Jan, [facility] [address] [address] Jan, [facility] [address] [address] Jan, [facility] [address] [address] Jan, [facility] [address] [address] Dec, [facility] [address] [address] Dec, [facility] [address] [id number] [id number] Dec, [facility] [address] [address] Dec, [facility] [address] [address] Oct, IMMUNIZATIONS No Known Immunizations SOCIAL HISTORY Never Assessed REASON FOR VISIT EMR-[facility] [place] PLAN OF CARE VITAL SIGNS MEDICATIONS Unknown Medications RESULTS No Results PROCEDURES No Known procedures INSTRUCTIONS MEDICATIONS ADMINISTERED No Known Medications
== END 2019-07-26 11:00 | DRG 519 ==
LOC: ER 17:30 → 4TH 19:20 → UNDOADMOB 19:20 → 4TH 20:15 → OBSVTOIN 07-14 14:27 → INTOOBSV 07-14 14:27 → UNDODISIN 07-26 11:00
PROVIDERS: ADMIT Internal Medicine; ATTEND Internal Medicine
PROC: 01NB0ZZ Release Lumbar Nerve, Open Approach (ICD-10-PCS; 2019-07-19)
PROC: 00QT0ZZ Repair Spinal Meninges, Open Approach (ICD-10-PCS; 2019-07-19)
PROC: 0ST20ZZ Resection of Lumbar Vertebral Disc, Open Approach (ICD-10-PCS; principal; 2019-07-19 13:14)
DX: M51.26 Other intervertebral disc displacement, lumbar region (principal); M48.061 Spinal stenosis, lumbar region without neurogenic claudication; M47.896 Other spondylosis, lumbar region; M48.02 Spinal stenosis, cervical region; G97.41 Accidental puncture or laceration of dura during a procedure; I10 Essential (primary) hypertension; E78.5 Hyperlipidemia, unspecified; N39.0 Urinary tract infection, site not specified; R41.0 Disorientation, unspecified; J44.9 Chronic obstructive pulmonary disease, unspecified; F03.90 Unspecified dementia, unspecified severity, without behavioral disturbance, psychotic disturbance, mood disturbance, and anxiety; R32 Unspecified urinary incontinence; R00.1 Bradycardia, unspecified; I25.119 Atherosclerotic heart disease of native coronary artery with unspecified angina pectoris; Z95.1 Presence of aortocoronary bypass graft; Z95.5 Presence of coronary angioplasty implant and graft; I25.2 Old myocardial infarction; Z87.891 Personal history of nicotine dependence
CPT/HCPCS: 36415; 71045; 72156; 72157; 72158; 80048; 80053; 81000; 83735; 84443; 84484; 85007; 85025; 85027; 85610; 87077; 87081; 87088; 87186; 93005; 94640; 94664; 94760; G0378

== ENCOUNTER 2019-07-26 09:54 | Inpatient (IN) | payer OTHER, MEDICARE ==
[~2019-07-26] VITALS: Ht 176 cm; Wt 80.0 kg
[~2019-07-26 09:54] MED LIST: ACET-2650 PO; AMLO10TA7 PO; ASPI-983 PO; CETI10TA17 PO; CLOP75TA69 PO; CRV25T PO; DOCU240C24 PO; DONE10TA41 PO; DONE5TAB30 PO; HYDR-3812 PO; LOSA1TAB20 PO; MAGN420T PO; NAPR-915 PO; PANT40TA2 PO; RANI-613 PO; SIME125T PO; TERA5CAP3 PO; TOLTA4 PO
--- NOTE | 2019-07-26 11:00 | NUR ---
ALEXANDREA MANN admitted to room 222-1, with an admitting diagnosis of SPINAL CORD INJURY, on 07/26/[address] [facility] [address] via , accompanied by STAFF. ALEXANDREA MANN introduced to surroundings, call light, bed controls, phone, TV, temperature control, lights, meal times, smoking policy, visitor policy, side rail policy, bathrooms and showers. Patient Rights given to patient in the handbook.ALEXANDREA MANN verbalizes understanding that [facility] is not responsible for the loss or damage to any personal effects or valuables that are kept in the patients posession during their hospitalization. The following Patient Care Plans were discussed with the PT: Discharge Planning, LAMINECTOMY AND IMPAIRED MOBILITY. ALEXANDREA MANN verbalizes understanding of Interdisciplinary Patient Education. Patient received Patient Rights Booklet, which includes Privacy Act Statement and Data Collection Information Summary. SALINE LOCK INTACT RIGHT HAND.
--- NOTE | 2019-07-26 11:33 | NUR ---
REVIEWED MED REC IT WAS REPORTED UPON ADMISSION TO 4TH FLOOR. NO CHANGES WERE MADE WHEN THE PATIENT DISCHARGED TO REHAB.
[2019-07-26 12:11] VITALS: BP 109/76
--- NOTE | 2019-07-26 12:14 | Occupational Therapy Eval ---
OT Evaluation-General/PLF Medical Diagnosis Admission Date Jul 26, 2019 at 11:00 Medical Diagnosis: non traumatic spinal cord dysfunction Onset Date: Jul 26, 2019 Therapy Diagnosis Therapy Diagnosis: decreased functional mobility and ADL Precautions Precautions/Isolations: Standard Precautions Weight Bear Status Weight Bearing Restriction: Weight Bearing/Tolerated Referral Physician: Adenike Justice DO Referral Reason: Activity Tolerance, Self Care, Evaluation/Treatment, Strengthening/ROM Medical History Pertinent Medical History: CABG, HTN Additional Medical History PMHx includes: CABG, PA, HTN Current History Pt admitted into acute unit. L2-L3 laminectomy/medial facetectomies with excision of right paracentral herniated nucleus pulposus completed. Pt transferred to ARU on 07/26/19. Reviewed History: Yes Social History Home: Single Level Current Living Status: Other Family (Granddaughter and , granddaughter's 2 children) Entry Into Home: Stairs With Railing Steps Into Home: 3 Pt's granddaughter works days as a nurse; granddaughter's works locally and is available to assist if needed per pt. Pt states he had a ramp placed but was too "rickety." Pt states [place] plans to give pt a new ramp for safer home entry. ADL-Prior Level of Function Therapy Code Descriptions/Definitions Functional [place] Measure: 0=Not Assessed/NA 4=Minimal Assistance 1=Total Assistance 5=Supervision or Setup 2=Maximal Assistance 6=Modified [place] 3=Moderate Assistance 7=Complete [place] Therapy Quality Codes: 6 Independent with activity with or without an assistive device 5 Patient requires set up or clean up by helper. Patient completes activity by themselves 4 Supervision or touching assist (CGA). [place] provide cues , steadying assist 3 The helper provides less than half the effort to complete the activity 2 The helper provides more than half the effort to complete the activity 1 Dependent. The helper does all the effort to complete an activity 7 Patient refused to complete or attempt activity 9 The patient did not perform the activity before the current illness or injury 88 Not attempted due to Medical conditions or safety concerns Functional Abilities and Goals: Independent: Patient completed the activities by him/herself, with or without an assistive device, with no assistance from a helper. Needed Some Help: Patient needed partial assistance from another person to complete activities. Dependent: A helper completed the activities for the patient. Unknown: Not Applicable: Self Care: Independent Functional Cognition: Independent DME/Equipment Comments Pt was IND with ADLs, use of FWW or cane for functional mobility, walk in shower Occupation: retired Drive Self: No Leisure Interests: listening to news and weather OT Current Status Subjective Pt seen in w/c in therapy gym. Pt agreeable to OT evaluation. Pt states pain level of 8-9/10 in R hip, R knee, R ankle, and back. Pt reports a "jabbing" pain. Mental Status/Objective Patient Orientation: Person, Place, Situation, Normal For Age Attachments: Telemetry Current Glasses/Contacts: Yes Hearing Aids: Yes Dentures/Partials: Yes Hand Dominance: Right Upper Extremity ROM Impaired, pt reaches ~90* shoulder flexion and abduction Pt able to reach back of head. Upper Extremity Coordination WFL Upper Extremity Sensation Pt states paresthesia of fingertips bilaterally, BLE "starting in back and going down to feet." Pt states he does not remember if he had numbness/ tingling in UE prior to hospitalization. Upper Extremity Strength Impaired. Pain noted in shoulder flexion. No strength testing completed. ADL-Treatment Eating (QC): 6 (Pt drinking water through straw; pt utilizes dentures.) Oral Hygiene (QC): 6 (Pt able to complete denture cleaning with materials on table. Pt completes all steps in bed.) Shower/Bathe Self (QC): 3 (Pt requires assist with BLE (feet) and entire back. Pt able to reach neck with cloth. Pt completes drying self with SBA.) Upper Body Dressing (QC): 5 (s/u for gathering clothing items; pt completes sitting on shower bench) Lower Body Dressing (QC): 2 (Pt requires assist threading BLE; pt able to begin threading but requires assist. Pt unable to stand to pull up pants; pt instructed to roll from side to side in bed, pt max A for pulling up pants.) On/Off Footwear (QC): 6 (Completed while seated on shower chair.) Toileting Hygiene (QC): 2 (Pt unable to stand and complete bottom wiping. Pt requires max A after gathering wipes) Toilet Transfer (QC): 1 (Pt requires assist x2 for stand pivot transfers.) Other Treatments Pt agreeable to OT evaluation, OT evaluation from [id number]. OT/PT cotreat from [id number]. Co-treat required due to complexity of diagnosis, weakness, and body functions during evaluation. OT focused on ADL and functional mobility tasks while PT focused on transfer techniques, sitting/ standing balance, and LE use. Pt educated on slide board transfer, unable to complete due to weakness and incline from w/c to bath bench. Pt required max Ax2 to squat- pivot from w/c to bath bench. Pt completes ADL activities on bath bench. Pt requires assist with bottom hygiene, completed with PT max A to stand pt, pt able to stand with assist for ~5-7 seconds before rest needed and bottom clean. Pt unable to pull up pants in standing due to short duration, transferred by w/c to room. Pt transferred through squat pivot x2 to bed, pt rolled, max A for pant donning with 3 rolls. Pt left in bed, all needs met, call light in reach. Education OT Patient Education: Correct positioning, Energy conservation, Modified ADL techniques, Purpose of tx/functional activities, Rehab process, Safety issues, Transfer techniques Teaching Recipient: Patient Teaching Methods: Demonstration, Discussion Response to Teaching: Verbalize Understanding, Return Demonstration OT Short Term Goals Short Term Goals Lower Body Dressing(FIM): 3 Toilet/Commode Transfer(FIM): 3 Additional Short Term Goals: 1-Demonstrate ADL Tasks, 2-Verbalize Understanding, 3-ImproveStrength/Jesus Alberto 1=Demonstrate adherence to instructed precautions during ADL tasks. 2=Patient will verbalize/demonstrate understanding of assistive devices/modifications for ADL. 3=Patient will improve strength/tolerance for activity to enable patient to perform ADL's. OT Correction Goals Correction Goals Eating (QC): 6 Oral Hygiene (QC): 6 Shower/Bathe Self (QC): 6 Upper Body Dressing (QC): 6 Lower Body Dressing (QC): 5 On/Off Footwear (QC): 6 Toileting Hygiene (QC): 5 Toilet/Commode Transfer (QC): 5 Additional Goals: 1-Demonstrate ADL Tasks, 2-Verbalize Understanding, 3- ImproveStrength/Jesus Alberto 1=Demonstrate adherence to instructed precautions during ADL tasks. 2=Patient will verbalize/demonstrate understanding of assistive devices/modifications for ADL. 3=Patient will improve strength/tolerance for activity to enable patient to perform ADL's. OT Education/Plan Problem List/Assessment Assessment: Decreased Activ Tolerance, Decreased UE Strength, Dependent Transfers, Impaired Bed Mobility, Impaired Funct Balance, Impaired I ADL's, Impaired Self-Care Skills, Restricted Funct UE ROM Discharge Recommendations Plan/Recommendations: Continue POC Comment Pt d/c recommendations to be determined Patient/Family Goals "get stronger" Treatment Plan/Plan of Care Treatment,Training & Education: Yes Patient would benefit from OT for education, treatment and training to promote i ndependence in ADL's, mobility, safety and/or upper extremity function for ADL's. Plan of Care: ADL Retraining, Caregiver Training, Concurrent Therapy, Functional Mobility, Group Exercise/Act as Ind, UE Funct Exercise/Act Frequency: At least 5 of 7 days/Wk (IRF) Estimated Hrs Per Day: 1.5 hours per day Agreement: Yes Rehab Potential: Fair Time/GCodes Start Time: 11:10 Stop Time: 12:10 Total Time Billed (hr/min): 60 Billed Treatment Time 1, EVM (10), ADLx3 (50) OT eval: [id number] OT/ PT co-treat: [id number] Total tx time: 60 GAYLE NOEL OTR Jul 26, 2019 12:14
[2019-07-26] MEDS ORDERED: PROMETHAZINE 25 MG (PHENERGAN) TAB PO PRN (12:15)
[2019-07-26] MEDS ORDERED: METOCLOPRAMIDE 10 MG (REGLAN) TAB PO PRN (12:15)
[2019-07-26] MEDS ORDERED: ONDANSETRON 4 MG/2 ML (SDV) Z0FRAN IV PRN (12:15)
[2019-07-26] MEDS ORDERED: HYDROmorphone 2 MG/ML VIAL (DILAUDID) IV PRN (12:15)
[2019-07-26] MEDS ORDERED: HALOPERIDOL 5 MG/ML (HALDOL) AMP IM PRN (12:15)
[2019-07-26] MEDS ORDERED: hydrOXYzine (ATARAX) 10 MG TAB PO PRN (12:15)
[2019-07-26] MEDS ORDERED: diphenhydrAMINE 25 MG TAB (BENADRYL) PO PRN ×2 (12:15→20:15)
[2019-07-26] MEDS ORDERED: NITROGLYCERIN 0.4 MG SL TABS BTL 25'S SL PRN (12:15)
[2019-07-26] MEDS ORDERED: METOCLOPRAMIDE INJ 10 MG/2 ML (REGLAN) IV PRN (12:15)
[2019-07-26] MEDS ORDERED: CATHETER FLUSH 10 ML SYR IV PRN (12:15)
[2019-07-26] MEDS ORDERED: ZIPRASIDONE 20 MG INJ (GEODON) VIAL IM PRN (12:15)
[2019-07-26] MEDS ORDERED: POLYETHYLENE GLYCOL 17 GM (MIRALAX) PACK PO PRN (12:15)
--- NOTE | 2019-07-26 12:24 | PM&R H&P / Post Admit Assess ---
History of Present Illness HPI/Chief Complaint CC: Cervical spine injury non-traumatic HPI: This is a 78yoWM who presented to the Hospital with significant compromise in function, was found to have significant cervical spine stenosis causing generalized weakness globally, that was complicated with delirium post- operatively in addition to a UTI diagnosis. Pt previously doctored with Dr. Tyler Danielson and did not see a regular ear mold laboratory technician although he has had Bypass surgery and has known CAD. Pt was doing well but had a lengthy acute care course and is in need of significant rehabilitation, prior to returning home. He seems to be very depressed, very tearful when I meet him and reports that he is about to turn 79 next month. I have tried to reassure him and I have put in a behavioral health consult in for him because of obvious tearfulness and overwhelmed feeling and loss of independence that he will need to be aggressively treated for in order to return home safely. Previously he used a walker for the past 6 months prior to admission, had lumbar spine surgery then was discharged home and home PT Collette Ramos evaluated the Pt to have such severe weakness that he was total care so he was sent to the ER for workup and from there thing progressed into cervical spine MRI showing severe stenosis and Dr. Bhatt performed surgery with good results but was so severe it was a dural tear during the surgery and he has become quite debilitated. He is urinating well, hasn't had a BM in several days so will need to work on that when he is admitted into the inpatient rehab unit. Overall he will be aggressively treated in order to re-gain his independence in order to return home. Source: patient, RN/MD, old records Exam Limitations: no limitations Date Seen 07/26/19 Time Seen by a Provider: 11:30 Attending Physician Adenike Redeer DO PCP Noble Danielson DO Referring Physician Date of Admission Jul 26, 2019 at 11:00 Home Medications & Allergies Home Medications Reviewed patient Home Medication Reconciliation performed by pharmacy medication reconciliations diesel technician mechanic and/or nursing. Patients Allergies have been reviewed. Allergies Allergies Coded Allergies codeine (Verified Adverse Reaction, Severe, VOMITING, 07/12/19) Uncoded Allergies TAPE ( Allergy, Severe, BLISTERS, 07/12/19) Past Edqiads-Jhwduq-Jvkxen Hx Past Med/Social Hx: Reviewed Nursing Past Med/Soc Hx, Reviewed and Corrections made Patient Social History Marrital Status: single Employed/Student: retired Smoking Status: Unknown if Ever Smoked Type Used: Cigarettes Recent Hopitalizations: No Seasonal Allergies Seasonal Allergies: No Past Medical History Surgeries: Appendectomy, CABG, Gallbladder, Orthopedic Cardiac: Heart Attack, Hypertension Neurological: Dementia Gastrointestinal: Chronic Constipation Musculoskeletal: Arthritis Family History Patient reports no known family medical history. Review of Systems Constitutional: see HPI, dizziness, malaise, weakness EENTM: no symptoms reported Respiratory: no symptoms reported Cardiovascular: no symptoms reported Gastrointestinal: constipation Genitourinary: no symptoms reported Musculoskeletal: back pain, joint pain, muscle pain, muscle stiffness, muscle cramps Skin: no symptoms reported Psychiatric/Neurological: No Symptoms Reported All Other Systems Reviewed Negative Unless Noted: Yes Physical Exam Exam Vital Signs Vital Signs Date Time Temp Pulse Resp B/P (MAP) Pulse Ox O2 Delivery O2 Flow Rate FiO2 07/26/19 17:55 36.6 76 20 114/74 (87) 97 Room Air Capillary Refill : General Appearance: No Apparent Distress, WD/WN, Chronically ill HEENT: PERRL/EOMI, Normal ENT Inspection, Pharynx Normal, Moist Mucous Membranes Neck: Full Range of Motion, Normal Inspection, Non Tender, Supple Respiratory: Chest Non Tender, Lungs Clear, Normal Breath Sounds, No Accessory Muscle Use, No Respiratory Distress Cardiovascular: Regular Rate, Rhythm, No Edema, No Gallop, No JVD, No Murmur Gastrointestinal: Normal Bowel Sounds, No Organomegaly, No Pulsatile Mass, Non Tender, Soft Back: Normal Inspection, No CVA Tenderness, No Vertebral Tenderness Extremity: Normal Capillary Refill, Normal Inspection, Normal Range of Motion, Non Tender, No Calf Tenderness, No Pedal Edema Neurologic/Psychiatric: Alert, Oriented x3, Normal Mood/Affect, certified genetic counselor II-XII Norm as Tested, Motor Weakness (generalized all extremities 3/5) Skin: Normal Color, Warm/Dry Lymphatic: No Adenopathy Results Results/Procedures Labs Patient resulted labs reviewed. Assessment/Plan Assessment and Plan Assess & Plan/Chief Complaint Assessment: Spinal cord trauma from severe stenosis Debility CAD Delirium s/p UTI Constipation HTN HLP Plan: Monitor urinary system IRF protocol Increase strength (1) Spinal cord injury (2) CAD (coronary artery disease) Status: Chronic (3) Delirium Status: Acute (4) Cervical spinal stenosis Status: Acute (5) Essential (primary) hypertension Status: Chronic (6) Lumbar spinal stenosis Status: Acute (7) Slipped intervertebral disc Status: Acute (8) Incidental durotomy Status: Acute (9) Neuroforaminal stenosis of spine Status: Acute (10) Generalized Weakness Post Admission Physician Asses Date seen by provider: Jul 26, 2019 Time seen by provider: 11:30 Admisison Dx: (1) Spinal cord injury (2) Generalized Weakness (3) Cervical spinal stenosis Status: Acute (4) Neuroforaminal stenosis of spine Status: Acute (5) Essential (primary) hypertension Status: Chronic (6) Lumbar spinal stenosis Status: Acute (7) Slipped intervertebral disc Status: Acute (8) Delirium Status: Acute (9) Incidental durotomy Status: Acute (10) CAD (coronary artery disease) Status: Chronic The preadmission screen agrees with the post admission assessment that the patient is a good candidate for inpatient rehabilitation. The patient will have a comprehensive program of inpatient rehabilitation with a goal of maximizing level of functional independence prior to discharge home with family. The patient will have PT/OT ninety minutes per day, each discipline, five days a week for gait, strengthening, conditioning, balance, ADLs, any patient/family/caregiver training as necessary. Speech therapy to do cognitive assessment and treat as indicated. Rehabilitation nursing to assist with bowel, bladder, skin, wound care, medication administration, pain management. Director Audience Marketing to assist with discharge planning, community reentry. SCD's for DVT prophylaxis. He appears to be well motivated to participate in three hours of therapy a day. He should be able to tolerate three hours of therapy a day from a medical standpoint. He should benefit from the three hours of therapy a day. He has a reasonable discharge plan, reasonable discharge rehabilitation goals and a supportive family. He has various comorbidities that need to be closely monitored with medications and treatments adjusted on a daily basis as needed. These include: see list Barriers to discharge for this patient who had been independent prior to this are for him to be modified independent to supervision for ADLs and mobility skills prior to discharge home with family, so as to lessen the burden of the caregivers. Risks for this patient include: 1. Fall 2. Fracture 3. DVT 4. Pulmonary embolism 5. Wound infection 6. Skin breakdown 7. Contractures 8. Poorly controlled pain 9. Urinary retention 10. UTI 11. Respiratory infection 12. Aspiration Estimated Length of Stay: 14 days Prognosis: Rehab prognosis appears good for goal of discharge home with family modified independent to supervision for ADLs and mobility skills. ADENIKE REEDER DO Jul 26, 2019 12:24
--- NOTE | 2019-07-26 12:30 | NUR ---
PASTORAL CARE HERE TO SEE PATIENT
[2019-07-26] MEDS: DEXAMETHASONE 4 MG TAB (DECADRON) PO SCH ×2 (13:34→19:12)
[2019-07-26] MEDS ORDERED: FLU QUADRIvalent (5+ YOA) 2019-2020 (AFLURIA) 0.5 ML IM ONE (14:00)
--- NOTE | 2019-07-26 14:00 | NUR ---
BEHAVIORAL HEALTH NOTIFIED OF CONSULTATION. GIANCARLO WILL BE HERE TOMORROW BETWEEN [id number].
--- NOTE | 2019-07-26 14:43 | Physical Therapy Evaluation ---
PT Evaluation-General Medical Diagnosis Admission Date Jul 26, 2019 at 11:00 Medical Diagnosis: non traumatic spinal cord dysfunction Onset Date: Jul 26, 2019 Therapy Diagnosis Therapy Diagnosis: impaired mobility, strength, endurance, balance Precautions Precautions/Isolations: Fall Prevention, Standard Precautions, Pressure Ulcer Weight Bear Status Right Lower Extremity: Right Weight Bearing/Tolerated Left Lower Extremity: Left Weight Bearing/Tolerated Referral Physician: Adenike Justice DO Reason for Referral: Evaluation/Treatment Medical History Pertinent Medical History: CABG, HTN Reviewed History: Yes Social History Home: Single Level Current Living Status: Other Family (Granddaughter and , granddaughter's 2 children) Entry Into Home: Stairs With Railing PT Steps Into Home: 3 Prior/Core FIM Prior Level of Function Therapy Code Descriptions/Definitions Functional [place] Measure: 0=Not Assessed/NA 4=Minimal Assistance 1=Total Assistance 5=Supervision or Setup 2=Maximal Assistance 6=Modified [place] 3=Moderate Assistance 7=Complete [place] Therapy Quality Codes: 6 Independent with activity with or without an assistive device 5 Patient requires set up or clean up by helper. Patient completes activity by themselves 4 Supervision or touching assist (CGA). [place] provide cues , steadying assist 3 The helper provides less than half the effort to complete the activity 2 The helper provides more than half the effort to complete the activity 1 Dependent. The helper does all the effort to complete an activity 7 Patient refused to complete or attempt activity 9 The patient did not perform the activity before the current illness or injury 88 Not attempted due to Medical conditions or safety concerns Functional Abilities and Goals: Independent: Patient completed the activities by him/herself, with or without an assistive device, with no assistance from a helper. Needed Some Help: Patient needed partial assistance from another person to complete activities. Dependent: A helper completed the activities for the patient. Unknown: Not Applicable: Patient states he has not been able to stand and ambulate for several weeks but before that he was ambulating with a 4-wheeled walker. PT Evaluation-Current Subjective Patient in recliner pre tx, agrees to PT, has 8-9/10 pain in back, hip, and knees. Will be co-treating for part of treatment with OT due to poor patient mobility, pain, poor strength and endurance, the need to coordinate UE and LE during activity and to bathe. Pt/Family Goals to be independent at home. Objective Patient Orientation: Person, Place, Situation ROM/Strength ROM Lower Extremities WNL Strenght Lower Extremities LLE (hip flexion 3/5, knee flexion 3/5, knee extension 3/5, dorsiflexion 3/5), RLE (hip flexion 2/5, knee flexion 2/5, knee extension 2/5, dorsiflexion 2/5) Sensory Vision: Functional Hearing: Functional Hand Dominance: Right Sensation Right Lower Extremit: Impaired Sensation Left Lower Extremity: Impaired Sensation Lower Extremities Patient has intact light touch sensation bilaterally but states it is decreased Transfers Therapy Code Descriptions/Definitions Functional [place] Measure: 0=Not Assessed/NA 4=Minimal Assistance 1=Total Assistance 5=Supervision or Setup 2=Maximal Assistance 6=Modified [place] 3=Moderate Assistance 7=Complete [place] Therapy Quality Codes: 6 Independent with activity with or without an assistive device 5 Patient requires set up or clean up by helper. Patient completes activity by themselves 4 Supervision or touching assist (CGA). [place] provide cues , steadying assist 3 The helper provides less than half the effort to complete the activity 2 The helper provides more than half the effort to complete the activity 1 Dependent. The helper does all the effort to complete an activity 7 Patient refused to complete or attempt activity 9 The patient did not perform the activity before the current illness or injury 88 Not attempted due to Medical conditions or safety concerns Roll Left to Right (QC): 2 bed t/f WC(FIM only if WC use): 2 Sit to Lying (QC): 2 Lying to Sitting/Side of Bed(Q: 2 Sit to Stand (QC): 1 Chair/Zbr-qz-Ewllf Xfer(QC): 2 Car Transfer (QC): 1 Patient performs bed mobility with max assist, supine <-> sit max assist, sit <- > stand dependent, transfer max assist, dependent for car transfer. Cues for hand placement and safety. Patient often resists movement during transfers. Gait Does the Patient Walk?: No and Walking Goal NOT indicated Mode of Locomotion: Wheelchair Anticipated Mode of Locomotion: Wheelchair Walk 10 feet (QC): 88 Walk 50 ft with 2 Turns(QC): 88 Walk 150 ft (QC): 88 Walking 10ft/uneven surface-QC: 88 Wheelchair Training Does the Pt Use a Wheelchair?: Yes Wheelchair (FIM): 1 Distance: 150' Wheel 50 ft with 2 turns (QC): 1 Wheel 150 ft (QC): 1 Type of Wheelchair: Manual Balance Sitting Static: Good Sitting Dynamic: Good Standing Static: Poor Standing Dynamic: Poor Treatment Transfer to shower bench for bathing, multiple times standing for undressing and dressing and cleaning bottom, stand pivot to bed and lay down to finish LE dressing. PT worked on bed mobility and transfers, standing, sitting balance during bathing and assist with dressing and bathing. OT worked on dressing, bathing, grooming, assist with transfers. Assessment/Needs Patient has impaired mobility, strength, endurance, balance. He cannot stand at this time. Rehab Potential: Guarded PT Short Term Goals Short Term Goals Time Frame: Aug 02, 2019 PT Tractor Operator Goals Tractor Operator Goals PT Tractor Operator Goals Time Frame: Aug 16, 2019 Sit to Lying (QC): 3 (Olu) Lying-Sitting on Side/Bed(QC): 3 (Kofi) Sit to Stand (QC): 1 Roll Left to Right (QC): 3 (Olu) Chair/Vel-pn-Jsgmn Xfer(QC): 3 (Olu) Car Transfer (QC): 1 Walk 10 feet (QC): 88 Walk 10ft-Uneven Surface(QC): 88 Walk 50ft with 2 Turns (QC): 88 Walk 150 ft (QC): 88 Wheel 50 feet with 2 turns (QC: 5 1 Step (curb) (QC): 88 4 Steps (QC): 88 12 Steps (QC): 88 Picking up an Object (QC): 88 PT Plan Problem List Problem List: Activity Tolerance, Functional Strength, Safety, Balance, Gait, Transfer, Bed Mobility, ROM Treatment/Plan Treatment Plan: Continue Plan of Care Treatment Plan: Bed Mobility, Concurrent Therapy, Education, Functional Activity Jesus Alberto, Functional Strength, Group Therapy, Gait, Safety, Therapeutic Exercise, Transfers Treatment Duration: Aug 16, 2019 Frequency: At least 5 of 7 days/Wk (IRF) Estimated Hrs Per Day: 1.5 hours per day Patient and/or Family Agrees t: Yes Safety Risks/Education Patient Education: Transfer Techniques, Correct Positioning, W/C Management, Safety Issues Teaching Recipient: Patient Teaching Methods: Demonstration, Discussion Response to Teaching: Reinforcement Needed Discharge Recommendations Plan Patient will perform bed mobility and transfer training, balance and endurance training, functional strengthening, gait training, and education, to improve functional mobility and independence at home. Therapy Discharge Recommendati: Scheduled Assistance, Other, See Comments (home with family) Time/GCodes Time In: 1100 Time Out: 1210 Total Billed Treatment Time: 60 Total Billed Treatment 1 visit EVM 10' FA 50' PT eval from [id number], OT eval from [id number], co-treat from [id number] ALANA CISNEROS PT Jul 26, 2019 14:43
--- NOTE | 2019-07-26 15:00 | NUR ---
CHECKED WITH CARDIOLOGY AND DR. DAVIS STATES TELEMETRY DOES NOT NEED TO BE CONTINUED.
--- NOTE | 2019-07-26 15:01 | Occupational Ther Daily Note ---
OT Current Status-Daily Note Subjective Pt seen in bed, nursing present. Pt states some pain but eager for therapy session. Mental Status/Objective Patient Orientation: Normal For Age Therapy Code Descriptions/Definitions Functional [place] Measure: 0=Not Assessed/NA 4=Minimal Assistance 1=Total Assistance 5=Supervision or Setup 2=Maximal Assistance 6=Modified [place] 3=Moderate Assistance 7=Complete [place] ADL-Treatment Therapy Code Descriptions/Definitions Functional [place] Measure: 0=Not Assessed/NA 4=Minimal Assistance 1=Total Assistance 5=Supervision or Setup 2=Maximal Assistance 6=Modified [place] 3=Moderate Assistance 7=Complete [place] Therapy Quality Codes: 6 Independent with activity with or without an assistive device 5 Patient requires set up or clean up by helper. Patient completes activity by themselves 4 Supervision or touching assist (CGA). [place] provide cues , steadying assist 3 The helper provides less than half the effort to complete the activity 2 The helper provides more than half the effort to complete the activity 1 Dependent. The helper does all the effort to complete an activity 7 Patient refused to complete or attempt activity 9 The patient did not perform the activity before the current illness or injury 88 Not attempted due to Medical conditions or safety concerns Lower Body Dressing (QC): 2 (Pt seen with urinal placed in between legs due to incontenence. Pt's nurse removes urinal, pt rolls from side to side, able to manipulate clothing with L hand, pt unable to manipulate clothing with R hand when rolled on R side. ) On/Off Footwear (QC): 6 Other Treatment Pt educated on bed mobility- pt grabbed hand rails and utilized feet to attempt moving toward HOB. Pt required assist to reach HOB x2. Pt able to sit from s upine with min A. Pt sit EOB with good sitting balance, completes shoe donning. Pt educated on slide board transfer techniques, completes with min A x2 for safety. Pt is pushed in w/c to therapy gym, completes UE ROM exercises with 1# wrist weights (focused on biceps curls, shoulder flexion, and functional reach). Pt places rings on spoke in differing planes- in front, beside, and above shoulder height. Pt holds breath during activity, educated of fact. Pt educated on exhaling during exertion. Pt completes following activity with good exhalation/ breathing techniques. Pt returned to room, wishes to stay in w/c, call light in reach, all needs met. Education OT Patient Education: Correct positioning, Energy conservation, Exercise program, Modified ADL techniques, Purpose of tx/functional activities, Safety issues, Transfer techniques Teaching Recipient: Patient Teaching Methods: Demonstration, Discussion Response to Teaching: Verbalize Understanding, Return Demonstration OT Short Term Goals Short Term Goals Lower Body Dressing(FIM): 3 Toilet/Commode Transfer(FIM): 3 Additional Short Term Goals: 1-Demonstrate ADL Tasks, 2-Verbalize Understanding, 3-ImproveStrength/Jesus Alberto 1=Demonstrate adherence to instructed precautions during ADL tasks. 2=Patient will verbalize/demonstrate understanding of assistive devices/modifications for ADL. 3=Patient will improve strength/tolerance for activity to enable patient to perform ADL's. OT Veneer Gluer Goals Veneer Gluer Goals Eating (QC): 6 Oral Hygiene (QC): 6 Shower/Bathe Self (QC): 6 Upper Body Dressing (QC): 6 Lower Body Dressing (QC): 5 On/Off Footwear (QC): 6 Toileting Hygiene (QC): 5 Toilet/Commode Transfer (QC): 5 Additional Goals: 1-Demonstrate ADL Tasks, 2-Verbalize Understanding, 3-ImproveStrength/Jesus Alberto 1=Demonstrate adherence to instructed precautions during ADL tasks. 2=Patient will verbalize/demonstrate understanding of assistive devices/modifications for ADL. 3=Patient will improve strength/tolerance for activity to enable patient to perform ADL's. OT Education/Plan Problem List/Assessment Assessment: Decreased Activ Tolerance, Decreased UE Strength, Dependent Transfers, Impaired Bed Mobility, Impaired Funct Balance, Impaired I ADL's, Impaired Self-Care Skills, Restricted Funct UE ROM Discharge Recommendations Plan/Recommendations: Continue POC Treatment Plan/Plan of Care Treatment,Training & Education: Yes Patient would benefit from OT for education, treatment and training to promote independence in ADL's, mobility, safety and/or upper extremity function for AD L's. Plan of Care: ADL Retraining, Caregiver Training, Concurrent Therapy, Functional Mobility, Group Exercise/Act as Ind, UE Funct Exercise/Act Frequency: At least 5 of 7 days/Wk (IRF) Estimated Hrs Per Day: 1.5 hours per day Agreement: Yes Rehab Potential: Fair Time/GCodes Start Time: 14:10 Stop Time: 14:40 Total Time Billed (hr/min): 30 Billed Treatment Time 1 FA, EX (30) GAYLE NOEL OTR Jul 26, 2019 15:01
[2019-07-26] MEDS: RT-ALBUTEROL/IPRATROPIUM 3 ML (DUONEB) VIAL INH SCH ×2 (15:04→20:06)
--- NOTE | 2019-07-26 15:15 | Physical Therapy Daily Note ---
PT Daily Note-Current Subjective Pt sitting in W/C after just finishing with OT upon arrival. Pt agrees to PT. Pain Location: No Pain Reported Mental Status Patient Orientation: Person, Place, Time, Situation Transfers Therapy Code Descriptions/Definitions Functional [place] Measure: 0=Not Assessed/NA 4=Minimal Assistance 1=Total Assistance 5=Supervision or Setup 2=Maximal Assistance 6=Modified [place] 3=Moderate Assistance 7=Complete [place] Therapy Quality Codes: 6 Independent with activity with or without an assistive device 5 Patient requires set up or clean up by helper. Patient completes activity by themselves 4 Supervision or touching assist (CGA). [place] provide cues , steadying assist 3 The helper provides less than half the effort to complete the activity 2 The helper provides more than half the effort to complete the activity 1 Dependent. The helper does all the effort to complete an activity 7 Patient refused to complete or attempt activity 9 The patient did not perform the activity before the current illness or injury 88 Not attempted due to Medical conditions or safety concerns Weight Bearing Right Lower Extremity: Right Weight Bearing/Tolerated Left Lower Extremity: Left Weight Bearing/Tolerated Exercises Seated Therapy Exercises: Ankle pumps, Long arc quads, Hip flexion, Kicking activity, Hamstring Curls, Hip abd/add Seated Reps: 15 Treatments Pt completes Seated EX in W/C as pt had just transferred to W/C for OT before PT tx. Pt takes a few short RB as needed. Pt resting with all needs met at end of tx, call light next to pt. Assessment Current Status: Good Progress Pt is showing an increase in strength of LE during tx. PT Short Term Goals Short Term Goals Time Frame: Aug 02, 2019 Wheelchair Distance: 150' PT Snf Goals Long Term Care Pharmacist Goals PT Snf Goals Time Frame: Aug 16, 2019 Sit to Lying (QC): 3 (Olu) Lying-Sitting on Side/Bed(QC): 3 (Kofi) Sit to Stand (QC): 1 Roll Left to Right (QC): 3 (Olu) Chair/Pcu-ul-Meqya Xfer(QC): 3 (Olu) Car Transfer (QC): 1 Walk 10 feet (QC): 88 Walk 10ft-Uneven Surface(QC): 88 Walk 50ft with 2 Turns (QC): 88 Walk 150 ft (QC): 88 Wheel 50 feet with 2 turns (QC: 5 1 Step (curb) (QC): 88 4 Steps (QC): 88 12 Steps (QC): 88 Picking up an Object (QC): 88 PT Plan Problem List Problem List: Activity Tolerance Treatment/Plan Treatment Plan: Continue Plan of Care Treatment Plan: Bed Mobility, Concurrent Therapy, Education, Functional Activity Jesus Alberto, Functional Strength, Group Therapy, Gait, Safety, Therapeutic Exercise, Transfers Treatment Duration: Aug 16, 2019 Frequency: At least 5 of 7 days/Wk (IRF) Estimated Hrs Per Day: 1.5 hours per day Patient and/or Family Agrees t: Yes Safety Risks/Education Patient Education: Transfer Techniques, Correct Positioning, Safety Issues Teaching Recipient: Patient Teaching Methods: Discussion Response to Teaching: Verbalize Understanding Time/GCodes Time In: 1440 Time Out: 1510 Total Billed Treatment Time: 30 Total Billed Treatment 1, EX x2 (30m) CAITLIN PIERRE BRICK HANDLER Jul 26, 2019 15:15
--- NOTE | 2019-07-26 15:49 | NUR ---
Pt requested to visit with this spark tester: Pt verbalized increased peace and relief related to improvement in health and transfer to rehab for further healing. He tearfully recollected his discharge from [facility], stating that at the time he was in pain and could not walk. 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 The pt stated "my life has been terrible and wonderful," elaborating he somehow always knew things could always be worse, and sensed that God was always protecting him. The pt shared increased sense of meaning and purpose in his keli, and his desire to become more involved in a keli community once discharged from the hospital. He also hopes to move into the country and tend his own garden again. I offered prayer at the close of our visit.
[2019-07-26] MEDS: LACTOBACILLUS ACIDOPHILUS (PROBIOTIC) CAPSULE PO SCH (17:17)
[2019-07-26] MEDS: cefTRIAXone FOR IV USE 1,000 MG in WATER (STERILE) FOR INJECTION 10 ML IV SCH (17:17)
[2019-07-26 17:55] VITALS: BP 114/74
--- NOTE | 2019-07-26 18:00 | NUR ---
PLEASANT AND COOPERATIVE. KEEPS URINAL IN PLACE, OTHERWISE INCONTINENT. RATES RIGHT SIDE AND BACK PAIN AN 8-10 MOST OF THE TIME.
[2019-07-26] MEDS: HYDROcodone/APAP 5 MG/325 MG (LORTAB) TAB PO PRN (19:06)
[2019-07-26 20:00] VITALS: BP 155/72
[2019-07-26] MEDS ORDERED: CALCIUM CARBONATE 500 MG (TUMS) TAB.CHEW PO PRN (20:15)
[2019-07-26] MEDS ORDERED: MELATONIN 3 MG TABLET PO PRN (20:15)
[2019-07-26] MEDS ORDERED: SENNA W/DOCUSATE (SENOKOT S) TABLET PO SCH (21:00)
--- NOTE | 2019-07-26 21:00 | NUR ---
SENNA NON ADMIN D/T PREVIOUS SENNA ORDER ADMINISTRATION ON SAME SHIFT BY THIS RN. PATIENT IS ALERT AND ORIENTED. DENIES NEEDS OR C/O. CONT TO MONITOR.
[2019-07-26] MEDS: amLODIPine 10 MG (NORVASC) TAB PO SCH (21:32)
[2019-07-26] MEDS: CYCLOBENZAPRINE 10 MG (FLEXERIL) TAB PO PRN (21:33)
[2019-07-26] MEDS: risperiDONE 0.25 MG (RisperDAL) TAB PO SCH (21:33)
[2019-07-26] MEDS: CARVEDILOL 3.125 MG (COREG) TABLET PO SCH (21:33)
[2019-07-26] MEDS: MELATONIN 3 MG TABLET PO PRN (21:33)
[2019-07-26] MEDS: DOCUSATE CALCIUM 240 MG (SURFAK) CAP PO SCH (21:38)
[2019-07-26] MEDS: POLYETHYLENE GLYCOL 17 GM (MIRALAX) PACK PO SCH (21:38)
[2019-07-26] MEDS: TERAZOSIN 5 MG (HYTRIN) CAPSULE PO SCH (21:39)
[2019-07-26] MEDS: DONEPEZIL 10 MG (ARICEPT) TAB PO SCH (21:39)
[2019-07-27] MEDS: DEXAMETHASONE 4 MG TAB (DECADRON) PO SCH ×4 (01:40→19:51)
[2019-07-27 05:11] LABS: BASOPHILS % (AUTO) 0 % (0-10); EOSINOPHILS % (AUTO) 0 % (0-10); HEMATOCRIT 35 % (40-54); HEMOGLOBIN 11.8 G/DL (13.3-17.7); LYMPHOCYTES # (AUTO) 0.8 X 10^3 (1.0-4.0); LYMPHOCYTES % (AUTO) 8 % (12-44); MEAN CORPUSCULAR HEMOGLOBIN 31 PG (25-34); MEAN CORPUSCULAR HGB CONC 34 G/DL (32-36); MEAN CORPUSCULAR VOLUME 90 FL (80-99); MEAN PLATELET VOLUME 10.2 FL (7.4-10.4); MONOCYTES # (AUTO) 0.8 X 10^3 (0.0-1.0); MONOCYTES % (AUTO) 8 % (0-12); NEUTROPHILS # (AUTO) 8.9 X 10^3 (1.8-7.8); NEUTROPHILS % (AUTO) 85 % (42-75); PLATELET COUNT 279 10^3/uL (130-400); RED CELL DISTRIBUTION WIDTH 13.3 % (10.0-14.5); WHITE BLOOD COUNT 10.5 10^3/uL (4.3-11.0)
[2019-07-27 05:32] LABS: ALANINE AMINOTRANSFERASE 21 U/L (0-55); ALBUMIN 3.1 GM/DL (3.2-4.5); ALKALINE PHOSPHATASE 54 U/L (40-136); BILIRUBIN,TOTAL 0.5 MG/DL (0.1-1.0); BUN/CREATININE RATIO 34; CALCIUM 8.3 MG/DL (8.5-10.1); CARBON DIOXIDE 23 MMOL/L (21-32); CHLORIDE 106 MMOL/L (98-107); CREATININE SERUM 0.71 MG/DL (0.60-1.30); GFR ESTIMATED > 60; GLUCOSE 133 MG/DL (70-105); SODIUM 139 MMOL/L (135-145); TOTAL PROTEIN 5.4 GM/DL (6.4-8.2)
[2019-07-27] MEDS: PANTOPRAZOLE 40 MG (PROTONIX) TAB PO SCH (06:30)
[2019-07-27] MEDS: LACTOBACILLUS ACIDOPHILUS (PROBIOTIC) CAPSULE PO SCH ×3 (06:30→17:29)
[2019-07-27] MEDS: BISACODYL 10 MG SUPP (DULCOLAX) PR SCH ×3 (06:31→20:17)
[2019-07-27 06:34] VITALS: BP 151/85
[2019-07-27] MEDS: RT-ALBUTEROL/IPRATROPIUM 3 ML (DUONEB) VIAL INH SCH ×4 (06:37→19:12)
[2019-07-27] MEDS: SENNA W/DOCUSATE (SENOKOT S) TABLET PO SCH ×3 (07:45→20:17)
[2019-07-27 08:00] VITALS: BP 116/70
--- NOTE | 2019-07-27 08:00 | NUR ---
STATES BACK PAIN IS IMPROVING AND FEELS LEGS ARE GETTING STRONGER. HAS A POSITIVE OUTLOOK WITH [facility] IN REHAB UNIT.
[2019-07-27] MEDS: LORATADINE (CLARITIN) 10 MG TAB PO SCH (08:03)
[2019-07-27] MEDS: TOLTERODINE LA 4 MG (DETROL) CAP PO SCH (08:03)
[2019-07-27] MEDS: DOCUSATE CALCIUM 240 MG (SURFAK) CAP PO SCH ×2 (08:03→20:17)
[2019-07-27] MEDS: CARVEDILOL 3.125 MG (COREG) TABLET PO SCH ×2 (08:03→20:16)
[2019-07-27] MEDS: CLOPIDOGREL 75 MG (PLAVIX) TABLET PO SCH (08:04)
[2019-07-27] MEDS: ASPIRIN E.C. 81 MG (ECOTRIN) TAB PO SCH (08:04)
[2019-07-27] MEDS: POLYETHYLENE GLYCOL 17 GM (MIRALAX) PACK PO SCH ×2 (08:06→20:17)
[2019-07-27] MEDS: LOSARTAN 50 MG (COZAAR) TAB PO SCH (08:08)
--- NOTE | 2019-07-27 08:26 | Cardiology Progress Note ---
Subjective Date Seen by Provider: Jul 27, 2019 Time Seen by Provider: 08:24 Subjective/Events-last exam Patient is sitting up in bed eating breakfast. Back pain continues to improve. Denies any recent chest pain. Review of Systems General: No Chills, No Night Sweats, No Fatigue, No Malaise, No Appetite, No Other HEENT: No Head Aches, No Visual Changes, No Eye Pain, No Ear Pain, No Dysphasia, No Sinus Congestion, No Post Nasal Drip, No Sore Throat, No Other Pulmonary: No Dyspnea, No Cough, No Pleuritic Chest Pain, No Other Cardiovascular: No: Chest Pain, Palpitations, Orthopnea, Paroxysmal Noc. Dyspnea, Edema, Lt Headedness, Other Objective-Cardiology Exam Last Set of Vital Signs Vital Signs 07/27/19 07/27/19 06:34 10:07 Temp 36.9 Pulse 62 Resp 18 B/P (MAP) 151/85 (107) Pulse Ox 95 O2 Delivery Room Air Capillary Refill : Less Than 3 Seconds I&O Intake and Output 07/27/19 00:00 Intake Total 500 ml Output Total 400 ml Balance 100 ml Intake Oral 500 ml Output Urine Total 400 ml # Voids 1 Daily Weight Change Yes, 24-33 lbs General: Alert, Oriented X3, Cooperative HEENT: Atraumatic, PERRLA Neck: Supple, No JVD, No Thyromegaly Lungs: Clear to Auscultation, Normal Air Movement Heart: Regular Rate, Normal S1, Normal S2, No Murmurs Abdomen: Normal Bowel Sounds, Soft, No Tenderness, No Hepatosplenomegaly, No Masses Extremities: No Clubbing, No Cyanosis, No Edema, Normal Pulses, No Ten derness/Swelling Skin: No Rashes, No Breakdown, No Significant Lesion Neuro: Normal Speech Psych/Mental Status: Mental Status NL, Mood NL Results Lab Laboratory Tests 07/27/19 04:37 A/P-Cardiology Admission Diagnosis Spinal Stenosis Chest pain CAD HTN Assessment/Plan Spinal stenosis, slipped disc, status post L2-3 laminectomy done on July 20, 2019, back pain continues to improve. Chest pain, chronic stable angina, no active chest pain today. Continue to monitor Coronary artery disease, history of CABG, multiple intervention the past, recent cardiac catheterization with drug-eluting stent deployment to the vein graft to the diagonal artery, had a patent GRACE to LAD with patent stent beyond the anastomosis in the LAD, small vessel disease otherwise done by Dr. Perez in [facility], currently back on Plavix. Continue to monitor Hypertension, continue to monitor blood pressure Sinus bradycardia. Secondary to medication, continue to monitor heart rate Hyperlipidemia, maintained on statin Generalized weakness, lower and upper extremity weakness, cervical spinal stenosis with slipped disc, s/p L 2-[address] Bhatt earlier this morning. Dementia Clinical Quality Measures DVT/VTE Risk/Contraindication: Risk Factor Score Per Nursin RFS Level Per Nursing on Admit: 4+=Very High Supervisory-Addendum Brief Supervisory Addendum Participated in pt care: history, MDM, physical Personally performed: exam, history, MDM Care discussed with: EZRA Notes: Patient was seen and evaluated with Desire, examined patient He is feeling better, denied any chest pain Back pain is better. Continue with current medication continue to monitor no changes are recommended DESIRE FULLER Jul 27, 2019 08:26 CHRISTIANO DAVIS MD Jul 27, 2019 10:47
--- NOTE | 2019-07-27 08:32 | PM&R Progress Note ---
Subjective HPI/CC On Admission Date Seen by Provider: Jul 27, 2019 Time Seen by Provider: 07:00 CC: Cervical spine injury non-traumatic HPI: This is a 78yoWM who presented to the Hospital with significant compromise in function, was found to have significant cervical spine stenosis causing generalized weakness globally, that was complicated with delirium post- operatively in addition to a UTI diagnosis. Pt previously doctored with Dr. Tyler Danielson and did not see a regular senior treasury analyst although he has had Bypass surgery and has known CAD. Pt was doing well but had a lengthy acute care course and is in need of significant rehabilitation, prior to returning home. He seems to be very depressed, very tearful when I meet him and reports that he is about to turn 79 next month. I have tried to reassure him and I have put in a behavioral health consult in for him because of obvious tearfulness and overwhelmed feeling and loss of independence that he will need to be aggressively treated for in order to return home safely. Previously he used a walker for the past 6 months prior to admission, had lumbar spine surgery then was discharged home and home PT Collette Ramos evaluated the Pt to have such severe weakness that he was total care so he was sent to the ER for workup and from there thing progressed into cervical spine MRI showing severe stenosis and Dr. Bhatt performed surgery with good results but was so severe it was a dural tear during the surgery and he has become quite debilitated. He is urinating well, hasn't had a BM in several days so will need to work on that when he is admitted into the inpatient rehab unit. Overall he will be aggressively treated in order to re-gain his independence in order to return home. Subjective/Events-last exam Pt had a pretty good night, Slept just a little bit better No BM yet so will initiate Dulcolax suppository I ordered and initiate more oral meds May need a soap suds enema Pain is okay overall until he moves Very hard of hearing Dementia will be a barrier to returning home so will evaluate his slum score with speech therapy when she does the slum test No other significant problems Labs reviewed, hgb stable Maintain on UTI treatment for now After rounds ST evaluated memory and scored 22/30 Having bowel and bladder incontinence Granddaughter could take care of him at home but he has a long recovery ahead of him in order to weigh that option. Review of Systems Gastrointestinal: Constipation Musculoskeletal: back pain Neurological: Weakness, Numbness, Incoordination Objective Exam Vital Signs Vital Signs Date Time Temp Pulse Resp B/P (MAP) Pulse Ox O2 Delivery O2 Flow Rate FiO2 07/27/19 19:12 95 Room Air 07/27/19 17:10 36.6 79 20 112/69 (83) Capillary Refill : Less Than 3 Seconds General Appearance: No Apparent Distress, WD/WN, Chronically ill HEENT: PERRL/EOMI, Normal ENT Inspection, Pharynx Normal, Moist Mucous Membranes Neck: Full Range of Motion, Normal Inspection, Non Tender, Supple Respiratory: Chest Non Tender, Lungs Clear, Normal Breath Sounds, No Accessory Muscle Use, No Respiratory Distress Cardiovascular: Regular Rate, Rhythm, No Edema, No Gallop, No JVD, No Murmur Gastrointestinal: Normal Bowel Sounds, No Organomegaly, No Pulsatile Mass, Non Tender, Soft Back: Normal Inspection, No CVA Tenderness, Decreased Range of Motion Extremity: Normal Capillary Refill, Normal Inspection, Normal Range of Motion, Non Tender, No Calf Tenderness, No Pedal Edema Neurologic/Psychiatric: Alert, Oriented x3, Normal Mood/Affect, workers compensation paralegal II-XII Norm as Tested, Motor Weakness (generalized all extremities 3/5) Skin: Normal Color, Warm/Dry Lymphatic: No Adenopathy Results/Procedures Lab Laboratory Tests 07/27/19 04:37 Patient resulted labs reviewed. FIM Transfers Therapy Code Descriptions/Definitions Functional [place] Measure: 0=Not Assessed/NA 4=Minimal Assistance 1=Total Assistance 5=Supervision or Setup 2=Maximal Assistance 6=Modified [place] 3=Moderate Assistance 7=Complete [place] Therapy Quality Codes: 6 Independent with activity with or without an assistive device 5 Patient requires set up or clean up by helper. Patient completes activity by themselves 4 Supervision or touching assist (CGA). [place] provide cues , steadying assist 3 The helper provides less than half the effort to complete the activity 2 The helper provides more than half the effort to complete the activity 1 Dependent. The helper does all the effort to complete an activity 7 Patient refused to complete or attempt activity 9 The patient did not perform the activity before the current illness or injury 88 Not attempted due to Medical conditions or safety concerns Roll Left to Right (QC): 2 Sit to Lying (QC): 2 Sit to Stand (QC): 1 Chair/Oxl-cq-Mrjvb Xfer(QC): 2 Bed to/from Chair: 2 Car Transfer (QC): 1 Gait Training Does the Patient Walk?: No and Walking Goal NOT indicated Walk 10 feet (QC): 88 Walk 50 ft with 2 Turns(QC): 88 Walk 150 ft (QC): 88 Walking 10ft/uneven surface-QC: 88 Wheelchair Training Does the Pt Use a Wheelchair?: Yes Wheelchair (FIM): 1 Distance: 150' Wheel 50 ft with 2 turns (QC): 1 Wheel 150 ft (QC): 1 Type of Wheelchair: Manual ADL-Treatment Eating (QC): 6 (Pt drinking water through straw; pt utilizes dentures.) Oral Hygiene (QC): 6 (Pt able to complete denture cleaning with materials on table. Pt completes all steps in bed.) Shower/Bathe Self (QC): 3 (Pt requires assist with BLE (feet) and entire back. Pt able to reach neck with cloth. Pt completes drying self with SBA.) Upper Body Dressing (QC): 5 (s/u for gathering clothing items; pt completes sitting on shower bench) Lower Body Dressing (QC): 2 (Pt seen with urinal placed in between legs due to incontenence. Pt's nurse removes urinal, pt rolls from side to side, able to manipulate clothing with L hand, pt unable to manipulate clothing with R hand when rolled on R side. ) On/Off Footwear (QC): 6 Toileting Hygiene (QC): 2 (Pt unable to stand and complete bottom wiping. Pt requires max A after gathering wipes) Toilet Transfer (QC): 1 (Pt requires assist x2 for stand pivot transfers.) Assessment/Plan Assessment and Plan Assess & Plan/Chief Complaint Assessment: Spinal cord trauma from severe stenosis Debility CAD Delirium s/p UTI Constipation HTN HLP Cognitive deficit SLUMS Plan: Monitor urinary system IRF protocol Increase strength BM regimen (1) Spinal cord injury (2) Generalized Weakness (3) Cervical spinal stenosis Status: Acute (4) Neuroforaminal stenosis of spine Status: Acute (5) Essential (primary) hypertension Status: Chronic (6) Lumbar spinal stenosis Status: Acute (7) Slipped intervertebral disc Status: Acute (8) Delirium Status: Acute (9) Incidental durotomy Status: Acute (10) CAD (coronary artery disease) Status: Chronic YANETH REEDER DO Jul 27, 2019 08:32
--- NOTE | 2019-07-27 09:36 | Occupational Ther Daily Note ---
OT Current Status-Daily Note Subjective Pt laying in bed at start of session, agreeable to OT tx this AM. Pt reported he is having "quite a bit" of pain, did not verbalize pain rating. Mental Status/Objective Therapy Code Descriptions/Definitions Functional [place] Measure: 0=Not Assessed/NA 4=Minimal Assistance 1=Total Assistance 5=Supervision or Setup 2=Maximal Assistance 6=Modified [place] 3=Moderate Assistance 7=Complete [place] Attachments: IV ADL-Treatment Therapy Code Descriptions/Definitions Functional [place] Measure: 0=Not Assessed/NA 4=Minimal Assistance 1=Total Assistance 5=Supervision or Setup 2=Maximal Assistance 6=Modified [place] 3=Moderate Assistance 7=Complete [place] Therapy Quality Codes: 6 Independent with activity with or without an assistive device 5 Patient requires set up or clean up by helper. Patient completes activity by themselves 4 Supervision or touching assist (CGA). [place] provide cues , steadying assist 3 The helper provides less than half the effort to complete the activity 2 The helper provides more than half the effort to complete the activity 1 Dependent. The helper does all the effort to complete an activity 7 Patient refused to complete or attempt activity 9 The patient did not perform the activity before the current illness or injury 88 Not attempted due to Medical conditions or safety concerns Eating (QC): 6 Grooming (FIM): 6 (Pt brushed hair at bed level, he was able to gather hair brush from side table and complete task without assistance.) Oral Hygiene (QC): 5 (set up assistance to gather supplies, pt able to complete task at bed level, brushing dentures clean with a toothbrush.) Lower Body Dressing (QC): 1 (Pt was able to thread RLE into underwear and pants, and LLE into pants. Pt required assistance threading LLE into underwear and managing underwear and pants up. Pt completed task seated on [facility], Performing a stand with PT as OT assisted pt with management of clothing.) On/Off Footwear (QC): 1 (Pt attempted to guanako socks, was unsuccessful. OT donned BLE socks.) Toileting Hygiene (QC): 1 (Assist x2, pt stood with PT from [facility] as OT performed hygine and clothing management for pt.) Toilet Transfer (QC): 1 (Pt able to perform SB transfer from EOB to drop arm commode with assist for hand placement and assist scooting across SB. Pt required x2 assist for squat pivot transfer from commode to recliner.) Other Treatment Pt laying in bed at start of session, completed grooming at bed level. OT cotreat with PT secondary to pt's decrease in overall function requiring the skill of 2 disciplines that a cardiac rehab nurse could not perform. OT focused on UE placement, ADLs, sequencing of task, and cueing pt while PT focused on LE placement and overall gross movement. Pt ate breakfast as PT/OT educated pt on expectations of rehab and treatment plan. Pt transferred to [facility] using SB, completed toileting and LE dressing, then transferred to recliner with stand pivot transfer and assist x2. Post tx, pt seated upright in recliner, call light in reach and all needs met. Education OT Patient Education: Correct positioning, Energy conservation, Modified ADL techniques, Progress toward Goal/Update tx plan, Purpose of tx/functional activities, Transfer techniques, Use of adapted equipment Teaching Recipient: Patient Teaching Methods: Demonstration Response to Teaching: Verbalize Understanding OT Short Term Goals Short Term Goals Lower Body Dressing(FIM): 3 Toilet/Commode Transfer(FIM): 3 Additional Short Term Goals: 1-Demonstrate ADL Tasks, 2-Verbalize Understanding, 3-ImproveStrength/Jesus Alberto 1=Demonstrate adherence to instructed precautions during ADL tasks. 2=Patient will verbalize/demonstrate understanding of assistive devices/modifications for ADL. 3=Patient will improve strength/tolerance for activity to enable patient to perform ADL's. OT Crystal Flat Grinder Goals Group Home Goals Eating (QC): 6 Oral Hygiene (QC): 6 Shower/Bathe Self (QC): 6 Upper Body Dressing (QC): 6 Lower Body Dressing (QC): 5 On/Off Footwear (QC): 6 Toileting Hygiene (QC): 5 Toilet/Commode Transfer (QC): 5 Additional Goals: 1-Demonstrate ADL Tasks, 2-Verbalize Understanding, 3- ImproveStrength/Jesus Alberto 1=Demonstrate adherence to instructed precautions during ADL tasks. 2=Patient will verbalize/demonstrate understanding of assistive devices/modifications for ADL. 3=Patient will improve strength/tolerance for activity to enable patient to perform ADL's. OT Education/Plan Problem List/Assessment Assessment: Decreased Activ Tolerance, Decreased UE Strength, Impaired Funct Balance, Impaired I ADL's, Impaired Self-Care Skills, Restricted Funct UE ROM Discharge Recommendations Plan/Recommendations: Continue POC Treatment Plan/Plan of Care Treatment,Training & Education: Yes Patient would benefit from OT for education, treatment and training to promote independence in ADL's, mobility, safety and/or upper extremity function for ADL's. Plan of Care: ADL Retraining, Caregiver Training, Concurrent Therapy, Functional Mobility, Group Exercise/Act as Ind, UE Funct Exercise/Act Frequency: At least 5 of 7 days/Wk (IRF) Estimated Hrs Per Day: 1.5 hours per day Agreement: Yes Rehab Potential: Fair Time/GCodes Start Time: 08:10 Stop Time: 09:23 Total Time Billed (hr/min): 73 Billed Treatment Time 7400-1356 cotx with PT 1, ADL 5 x73min RACHID GONZALES OT Jul 27, 2019 09:36
--- NOTE | 2019-07-27 10:07 | Progress Note ---
NIDIA NGUYEN [facility] 07/27/19 1007: Progress Note Pt is highly motivated and excited to be in the rehab unit stating he has made progress already since being in here for less than 24hrs. He is able to do a few things * He is able to move and use both of his arms/hands allowing him to be able to eat, drink, write, and hold objects properly * He states that he is able to bring his knees to his chest today which he was unable to do yesterday * He is able to sit on the edge of the bed with a little assistance He has difficulty and is unable to perform task he was able to do prior to his admission * He is unable to stand without significant assistance from staff * He is unable to bath and use the restroom with out assistance * He is unable to transfer from the bed to commode without assistance His goals for rehab are to improve on his current struggles and likely will stay with his grandson for a while until he fully regains his ability to live independently in the long-term he has currently * He would like to be able to walk with a walker/cane at minimum as he did prior to admission, but would like to walk independently if he can get strong enough * His grandson's house has 4 stairs to get into the front door, and he would like to get a ramp [facility] by [facility] if [facility] * He would like to be able to return to his current long-term apartment that is ground level, or possibly move into a house if he can mange the tasks * He currently pays someone to do his laundry because he was to tired to make it down to the laundry unit provided by his long-term, and he would like to be able to complete this on his own ADENIKE REEDER DO 07/27/19 2016: Supervisory-Addendum Brief Verification & Attestation Participated in pt care: history, MDM, physical Personally performed: exam, history, MDM, supervision of care Care discussed with: Medical Student Procedures: n/a Results interpretation: Verified all documentation Verification and Attestation of Medical Student E/M Service A medical student performed and documented this service in my presence. I reviewed and verified all information documented by the medical student and made modifications to such information, when appropriate. I personally performed the physical exam and medical decision making. Adenike Reeder, Jul 27, 2019,20:16 NIDIA NGUYEN [facility] Jul 27, 2019 10:07 ADENIKE REEDER DO Jul 27, 2019 20:16
--- NOTE | 2019-07-27 10:13 | Physical Therapy Daily Note ---
PT Daily Note-Current Subjective Pt.agreed to Rx after much explanation and encouragement. Pt. confused, somewhat argumentative and needs near constant redirection to focus on task and therapies at hand. Pt. distracted by his left knee which he says needs " evaluated and taken care of immediately by Dr Martínez" Pain Numeric Pain Scale: 4 Location: Right Location Body Site: Knee Pain Description: Ache Mental Status Patient Orientation: Person, Confused monotone, on verge of tears at times , fragmented subject matter, unsure that pts statements are factual Transfers Therapy Quality Codes: 6 Independent with activity with or without an assistive device 5 Patient requires set up or clean up by helper. Patient completes activity by themselves 4 Supervision or touching assist (CGA). [place] provide cues , steadying assist 3 The helper provides less than half the effort to complete the activity 2 The helper provides more than half the effort to complete the activity 1 Dependent. The helper does all the effort to complete an activity 7 Patient refused to complete or attempt activity 9 The patient did not perform the activity before the current illness or injury 88 Not attempted due to Medical conditions or safety concerns Transfers (B, C, W/C): 5 Roll Left to Right (QC): 5 Sit to Lying (QC): 6 Sit to Stand (QC): 5 Chair/Slf-ts-Lhrqj Xfer(QC): 5 all TRFs SBA as pt. needs FT supervision and direction secondary to confusion Weight Bearing Right Lower Extremity: Right Weight Bearing/Tolerated Left Lower Extremity: Left Weight Bearing/Tolerated Gait Training Does the Patient Walk?: Yes Gait: 5 Walk 10 feet (QC): 5 Walk 50 ft with 2 Turns(QC): 5 Walk 150 ft (QC): 5 Gait Persons Needed: 1 Gait Assistive Device: FWW needs directed and guided for all gait, Exercises Supine Ex: Ankle pumps, Quad Set, Rolling, Glut sets, Heel Slides, Short Arc Quads, Scooting, D1 F/E UE, Straight leg raise, Hip abd/add Supine Reps: 15 Seated Therapy Exercises: Ankle pumps, Sit to stand, Long arc quads Seated Reps: 15 Treatments needs constant redirection, somewhat confused, fragmented subject matter, perseverates on subjects , Assessment Current Status: Good Progress (functionally, but cognitively declined, mental illness appearance) PT Short Term Goals Short Term Goals Time Frame: Aug 02, 2019 Wheelchair Distance: 150' PT Operative Supervisor Goals [facility] Goals PT Operative Supervisor Goals Time Frame: Aug 16, 2019 Sit to Lying (QC): 3 (Olu) Lying-Sitting on Side/Bed(QC): 3 (Kofi) Sit to Stand (QC): 1 Roll Left to Right (QC): 3 (Olu) Chair/Hau-kl-Trtwe Xfer(QC): 3 (Olu) Car Transfer (QC): 1 Walk 10 feet (QC): 88 Walk 10ft-Uneven Surface(QC): 88 Walk 50ft with 2 Turns (QC): 88 Walk 150 ft (QC): 88 Wheel 50 feet with 2 turns (QC: 5 1 Step (curb) (QC): 88 4 Steps (QC): 88 12 Steps (QC): 88 Picking up an Object (QC): 88 PT Plan Treatment/Plan Treatment Plan: Bed Mobility, Concurrent Therapy, Education, Functional Activity Jesus Alberto, Functional Strength, Group Therapy, Gait, Safety, Therapeutic Exercise, Transfers Treatment Duration: Aug 16, 2019 Frequency: At least 5 of 7 days/Wk (IRF) Estimated Hrs Per Day: 1.5 hours per day Patient and/or Family Agrees t: Yes DEA PEÑALOZA EKG MONITOR Jul 27, 2019 10:13
--- NOTE | 2019-07-27 10:18 | Occupational Ther Daily Note ---
OT Current Status-Daily Note Subjective Pt upright in recliner at start of session, agreeable to OT tx. Pt did not report pain rating this tx. Mental Status/Objective Therapy Code Descriptions/Definitions Functional [place] Measure: 0=Not Assessed/NA 4=Minimal Assistance 1=Total Assistance 5=Supervision or Setup 2=Maximal Assistance 6=Modified [place] 3=Moderate Assistance 7=Complete [place] Attachments: IV ADL-Treatment Therapy Code Descriptions/Definitions Functional [place] Measure: 0=Not Assessed/NA 4=Minimal Assistance 1=Total Assistance 5=Supervision or Setup 2=Maximal Assistance 6=Modified [place] 3=Moderate Assistance 7=Complete [place] Therapy Quality Codes: 6 Independent with activity with or without an assistive device 5 Patient requires set up or clean up by helper. Patient completes activity by themselves 4 Supervision or touching assist (CGA). [place] provide cues , steadying assist 3 The helper provides less than half the effort to complete the activity 2 The helper provides more than half the effort to complete the activity 1 Dependent. The helper does all the effort to complete an activity 7 Patient refused to complete or attempt activity 9 The patient did not perform the activity before the current illness or injury 88 Not attempted due to Medical conditions or safety concerns On/Off Footwear (QC): 2 (OT educated pt on using sock aid to don socks. OT assisted pt with doffing socks, & demo'd use of sock aid. Pt able to don sock on left foot using sock aid, required assistance with right foot secondary to dressing on heel of foot) Other Treatment Pt upright in recliner throughout session. OT educated pt on using electric r ecliner to assist pt in scooting up. OT educated pt on use of sock aid, and then pt completed UE exercises in order to increase UE strength for functional tasks and ADLs. Pt completed x10 reps of shoulder flexion BUE using 2lb weight. Pt completed x20 reps of the following exercises with 2lb wt: elbow flexion/extension, forearm pronation/supination, wrist flexion & extension.Post OT tx, pt seated upright in recliner, call light and tray table in reach and all needs met. Education OT Patient Education: Correct positioning, Exercise program, Modified ADL techniques, Progress toward Goal/Update tx plan, Purpose of tx/functional activities, Use of adapted equipment Teaching Recipient: Patient Teaching Methods: Demonstration Response to Teaching: Verbalize Understanding, Reinforcement Needed OT Short Term Goals Short Term Goals Lower Body Dressing(FIM): 3 Toilet/Commode Transfer(FIM): 3 Additional Short Term Goals: 1-Demonstrate ADL Tasks, 2-Verbalize U nderstanding, 3-ImproveStrength/Jesus Alberto 1=Demonstrate adherence to instructed precautions during ADL tasks. 2=Patient will verbalize/demonstrate understanding of assistive devices/modifications for ADL. 3=Patient will improve strength/tolerance for activity to enable patient to perform ADL's. OT Valve And Regulator Repairer Goals Valve And Regulator Repairer Goals Eating (QC): 6 Oral Hygiene (QC): 6 Shower/Bathe Self (QC): 6 Upper Body Dressing (QC): 6 Lower Body Dressing (QC): 5 On/Off Footwear (QC): 6 Toileting Hygiene (QC): 5 Toilet/Commode Transfer (QC): 5 Additional Goals: 1-Demonstrate ADL Tasks, 2-Verbalize Understanding, 3- ImproveStrength/Jesus Alberto 1=Demonstrate adherence to instructed precautions during ADL tasks. 2=Patient will verbalize/demonstrate understanding of assistive devices/modifications for ADL. 3=Patient will improve strength/tolerance for activity to enable patient to perform ADL's. OT Education/Plan Problem List/Assessment Assessment: Decreased Activ Tolerance, Decreased UE Strength, Impaired Funct Balance, Impaired I ADL's, Impaired Self-Care Skills, Restricted Funct UE ROM Discharge Recommendations Plan/Recommendations: Continue POC Treatment Plan/Plan of Care Treatment,Training & Education: Yes Patient would benefit from OT for education, treatment and training to promote independence in ADL's, mobility, safety and/or upper extremity function for ADL's. Plan of Care: ADL Retraining, Caregiver Training, Concurrent Therapy, Funct ional Mobility, Group Exercise/Act as Ind, UE Funct Exercise/Act Frequency: At least 5 of 7 days/Wk (IRF) Estimated Hrs Per Day: 1.5 hours per day Agreement: Yes Rehab Potential: Fair Time/GCodes Start Time: 09:50 Stop Time: 10:07 Total Time Billed (hr/min): 17 Billed Treatment Time 1, EX x17min RACHID GONZALES OT Jul 27, 2019 10:18
--- NOTE | 2019-07-27 10:20 | ST Cognitive Linguistic Eval ---
Speech Evaluation-General Medical Diagnosis non traumatic spinal cord dysfunction Onset Date: Jul 26, 2019 Therapy Diagnosis Therapy Diagnosis: Cognitive-communication Precautions Precautions: Fall Precautions/Isolations: Fall Prevention, Standard Precautions, Pressure Ulcer Referral Referring Physician: Dr. Justice Reason for Referral: Evaluation/Treatment Medical History Pertinent Medical History: CABG, HTN CABG, HTN Current History non traumatic spinal cord dysfunction Reviewed History: Yes Social History Home: [facility] Current Living Status: Other Family (Granddaughter and , granddaughter's 2 children) Speech PLF-Current Status Prior Level of Function Patient lived in Senior housing in [place] where he was independent for most of his daily needs. Subjective Patient was very pleasant and cooperative with the cognitive assessment. Language Eval: Auditory Comprehends Simple Yes/No Ques: Functional Indent/Objects Multiple Louis: Functional Ident/Pics in Multiple Louis: Functional Follows 1-Step Commands: Functional Follows Complex Directions: Mild Follows General Conversations: Functional Language Eval: Verbal Language Completes Spontaneous Greeting: Functional Produces Auto, Serial Info: Functional Imitates Simple Words/Phrases: Functional Word Finding: Mild Requests Basic Needs: Functional States Basic Personal Info: Functional Expresses Complex Ideas: Mild Objective Cognitive Domain Attention: WNL Memory: Mild Problem Solving: Mild Executive Functions: Mild Visuospatial Skills: WNL Composite Severity Rating: WNL Clock Drawing Severity Rating: Mild Objective Formal/Standardized Tests [facility] Mental Status ([facility]) Results 22/30, Mild Neurocognitive Disorder Oral Motor/Speech Production Within Functional Limits Impression Patient is a pleasant 78 year old gentleman who was admitted to the ARU for stre ngthening. Patient has spinal pain and debility which has made it unsafe for him to reside in his senior housing apartment. The patient was given the SLUMS with a score of 22/30 which falls in the MNCD range of function. The patient will receive skilled ST services with focus on improving his level of cognitive function so that he will be safe in his living environment. Speech Patient Assess Expression of Ideas/Wants: Expression (4) Understanding Verbal Content: Usually Understands (3) Brief Interview-Mental Status: Yes Repetition of Three Words: Three (3) Temporal Orientation: Year: Correct (3) Temporal Orientation: Month: Accurate within 5 days(2) Temporal Orientation: Day: Correct (1) Recall : Wear to say "Sock": Yes,after cueing (1) Recall : Color: Yes, after cueing (1) Recall : Bed: No, could not recall (0) Memory/Recall Ability: Current season, That he or she is in a hsp/hsp unit Speech Short Term Goals Short Term Goals Short Term Goals 1) Patient will complete memory tasks related to his daily needs at 90% or greater, independently. 2) Patient will complete problem solving tasks related to his daily needs at 90% or greater, independently. 3) Patient will complete safety awareness tasks related to his daily needs at 90% or greater, independently. Speech Equipment Cleaner Goals Equipment Cleaner Goals Patient will improve cognitive-communication necessary for safety and daily living tasks with minimal assist. Speech-Plan Patient/Family Goals Patient/Family Goals: The patient plans on living with a grand daughter post rehab until he is well enough to return to his nursing home apartment. Treatment Plan Speech Therapy Treatment Plan: Continue Plan of Care Patient will receive skilled ST services for improving cognitive function. Treatment Duration: Aug 05, 2019 Frequency: 5 times per week Estimated Hrs Per Day: .5 hour per day Rehab Potential: Fair Barriers to Learning: Patient has cognitive deficits. Pt/Family Agrees to Plan: Yes Safety Risks/Education Teaching Recipient: Patient Teaching Methods: Discussion Response to Teaching: Verbalize Understanding Education Topics Provided: Safety within his room and communication of his wants/needs Time Speech Therapy Time In: 09:35 Speech Therapy Time Out: 09:50 Total Billed Time: 15 Billed Treatment Time 1, PATRICIA Krause Jul 27, 2019 10:20
--- NOTE | 2019-07-27 11:17 | Physical Therapy Daily Note ---
PT Daily Note-Current Subjective Pt. explains that he feels like he has made progress already and is pleasantly surprised at all the ways therapies have been able to help him Pain Numeric Pain Scale: 3 Location: No Pain Reported, Right Location Body Site: Hip (and leg) Pain Description: Pressure Mental Status Patient Orientation: Normal For Age Transfers Therapy Quality Codes: 6 Independent with activity with or without an assistive device 5 Patient requires set up or clean up by helper. Patient completes activity by themselves 4 Supervision or touching assist (CGA). [place] provide cues , steadying assist 3 The helper provides less than half the effort to complete the activity 2 The helper provides more than half the effort to complete the activity 1 Dependent. The helper does all the effort to complete an activity 7 Patient refused to complete or attempt activity 9 The patient did not perform the activity before the current illness or injury 88 Not attempted due to Medical conditions or safety concerns Transfers (B, C, W/C): 2 Sit to Lying (QC): 5 Sit to Stand (QC): 2 Chair/Umn-ef-Rssiu Xfer(QC): 2 Bed to/from Chair: 2 sld brd TRF requires mod assist 1-2, SPT requires max assist of 2. sit to stand max of 1, pt. never completely in stance all TRFs squat pivot or slide brd Weight Bearing Right Lower Extremity: Right Weight Bearing/Tolerated Left Lower Extremity: Left Weight Bearing/Tolerated Exercises Seated Therapy Exercises: Ankle pumps, Long arc quads, Hip flexion, Hip abd/add Seated Reps: 12 Treatments much education with explanation fo rehab process and co Rx with OT for coordination of U&L extremity use for sld brd and ADLs considering complexity of pts involvement and debility at this time Assessment Current Status: Good Progress pt. gives full effort and has increased use RLE and increased TRF sup to sit TRF skills PT Short Term Goals Short Term Goals Time Frame: Aug 02, 2019 Wheelchair Distance: 150' PT [employer] Consultant Goals Nursing Home Goals PT [employer] Consultant Goals Time Frame: Aug 16, 2019 Sit to Lying (QC): 3 (Olu) Lying-Sitting on Side/Bed(QC): 3 (Kofi) Sit to Stand (QC): 1 Roll Left to Right (QC): 3 (Olu) Chair/Kwg-yt-Hultf Xfer(QC): 3 (Olu) Car Transfer (QC): 1 Walk 10 feet (QC): 88 Walk 10ft-Uneven Surface(QC): 88 Walk 50ft with 2 Turns (QC): 88 Walk 150 ft (QC): 88 Wheel 50 feet with 2 turns (QC: 5 1 Step (curb) (QC): 88 4 Steps (QC): 88 12 Steps (QC): 88 Picking up an Object (QC): 88 PT Plan Treatment/Plan Treatment Plan: Continue Plan of Care Treatment Plan: Bed Mobility, Concurrent Therapy, Education, Functional Activity Jesus Alberto, Functional Strength, Group Therapy, Gait, Safety, Therapeutic Exercise, Transfers Treatment Duration: Aug 16, 2019 Frequency: At least 5 of 7 days/Wk (IRF) Estimated Hrs Per Day: 1.5 hours per day Patient and/or Family Agrees t: Yes Safety Risks/Education Patient Education: Transfer Techniques, Correct Positioning, Disease Process, Safety Issues Teaching Recipient: Patient Teaching Methods: Demonstration, Discussion Response to Teaching: Verbalize Understanding, Return Demonstration, Reinforcement Needed Time/GCodes Time In: 815 Time Out: 915 Total Billed Treatment Time: 60 Total Billed Treatment 1,FA60m co Rx DEA NOLASCO VISUAL MANAGER Jul 27, 2019 11:17
--- NOTE | 2019-07-27 12:07 | NUR ---
Met with patient to complete initial assessment. 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 Prior to hospitalization patient was temporarily living with his granddaughter, her spouse and two children. Prior to residing with his granddaughter, patient was living alone in [place], [place]; however, due to his inability to safely remain at home, he made the move to his granddaughter's. Patient was receiving home health care services from [facility] [place], [place]. In fact, PT with [facility] made an initial referral [facility]; however, due to possibility of ongoing medical issues, it was recommended patient present to an ER, for evaluation. Patient states he has a rollator, RWW, and bath chair. Patient does indicate he will need a ramp, prior to returning home, and is under the impression the CT will cover this expense. Patient identifies Christa ([phone]) and aMrian ([phone]) as his primary contacts. Patient confirms his PCP is Dr. Noble Danielson, as well as his insurance providers of [facility], [facility], and [facility]. His preferred [facility]'s are [facility] and [email or web address]. The purpose of Weekly Team Conference discussed, and patient displayed understanding with no concerns. Will continue to follow for discharge planning.
--- NOTE | 2019-07-27 12:43 | NUR ---
"RD ASSESSMENT PMHx: CAD, HTN, Chronic Constipation, MS PT INTERACTION: Pt was awake and pleasant during nutrition assessent. Pt states current appetite is terrible, but that it is improving. Pt states some issues with swallowing, but that it doesn't occur often. Pt states no current issues with n/v at this time. Pt states that he has chronic constipation and that he is unsure of last BM. Note unable to determine last BM per chart review. Pt states recent 34# wt loss [id number]. Note 6# wt loss [id number], per chart review. Note this is significant wt loss at 2.6%. With pt's poor po intake and significant wt loss, pt meets criteria for acute severe malnutrition, according to ASPEN guidelines. ABNORMAL NUTRITION-RELATED LAB VALUES: glu 133 (H); BUN 24 (H); Ca 8.3 (L); Hgb 11.8 (L); Hct 35 (L); alb 3.1 (L); Pro 5.4 (L) Est. kcal needs: 2961-9392 kcal (20-25 kcal/kg) Est. Pro needs: 70-88 g Pro (0.8-1.0 g Pro/kg) PES STATEMENT: Inadequate oral intake related to loss of appetite | chronic constipation as evidenced by Pt interview INTERVENTION: Continue with current diet order of regular diet. Pt may require bowel regimen if constipation persists. MONITOR/EVALUATE: PO Intake, Weight Status, Hydration Status, Stool Output, Lab Values Efe Mendez, MS, RD [phone]"
--- NOTE | 2019-07-27 14:00 | NUR ---
BEHAVIORAL HEALTH HAS BEEN HERE. CHUCKALTA TO BE STARTED FOR DEPRESSION X 2 YEARS.
--- NOTE | 2019-07-27 14:45 | Behavioral Health Consult ---
Consult- Consult Date Seen by Provider: Jul 27, 2019 Time Seen by Provider: 13:00 Date: 07-27-19 Referral: Dr. Justice [facility]#: [id number] CPT Code: 21523 Psychodiagnostic Examination 08914 Interactive Complexity, 2 unit(s) Start Time: 1:00 pm Stop Time: 3:00 pm Chief Complaint: depression Referral: Fredo Miller is a 78-year-old, , male referred by Dr. Justice for a clinical diagnostic assessment. Information for this evaluation was gathered from self-report, clinical observation, hospital nurse, and medical records. Presenting Problem: according to the medical records, Fredo had delirium post back operation, had a UTI, and presented to Dr. Justice as depressed and tearful. His records indicate he lives in a snf apartment and the goal is to get him back there. Fredo was seen alone and stated he has been worried about getting home. He reported he feels his worry is a problem and stated he worries about what is going to happen, his living situation, and is not happy with the man in charge of where he is living. He reported the man is not the guest service aide, but he treats the people living there very poorly; he will go in and out of their apartment as he pleases, is not respectful, and has said rude things to them. rFedo reported he would like to get out of the hospital but wants the man to leave the apartments. Therapist stated that may not happen and it would be better to focus on what he can do to make his living situation better or if he wants to look at finding a new place to live. He reported he has been looking at other snf facilities for quite a while but has not found anything yet. Fredo reported he worried more shortly after his recent surgery when he was first admitted to the hospital but stated his worry has decreased recently due to the progress he has made. He presorted he had not been able to move his legs and now is able to do so, which has helped him to stay positive and know that things are getting better. He reported some feelings of depression but nothing constant. He reported loss of pleasure, insomnia and only sleeping 3-4 hours a night, and fatigue for the past two years. He also reported decreased appetite and weight loss the past two years. Fredo reported it has even more significant recently and stated he now weighs 199 pounds and two months ago had weighed 272 pounds. He was asked about any changes the past two years and stated two years ago he received a concussion while shopping at [employer] and was not treated for it. He reported he was unsure if he ever told his PCP or Dr. Justice about that. Fredo reported he had enjoyed hunting, fishing, and wood carving, but stated he does not do anything he enjoys and has no hobbies. We discussed options he could do and he was encouraged to continue to think on what activities he may enjoy doing. Observations/Mental Status: Fredo was seen on the rehab floor and was alone. Overall appearance was appropriate and indicated adequate self-care. Fredo appeared to be a fair historian. Observed gait and gross motor movements indicated no clinically significant difficulties. Jaycee general approach to the evaluation indicated interest. Orientation was intact for person, place, time, and situation. Fredo evidenced fair understanding of the reason for the appointment. Jaycee in-session behavior was cooperative. The predominant mood was calm with affect appropriate to expressed concerns and presenting problem. Immediate attention and concentration was unremarkable clinically during the interview. Memory functioning appeared to be intact. Level of intellectual functioning compared to same age peers was estimated to be in the average range. Thought processes were found to be generally logical, coherent and goal directed. Thought content appeared normal. Psychomotor functioning was within normal limits. Tone of voice was normal and controlled. Expressive speech was marked by fluent speech and language. Eye contact was good. Insight was fair. Overall, style of interacting during the appointment was appropriate and motivated. Current/Previous Mental Health Treatment: Past psychiatric history was reported as denied. History of self or other harm was denied. Current destructive behavio r patterns: none indicated or reported. Family psychiatric history was reported as unremarkable. Educational and Vocational Histories: Current vocational status: currently retired. Vocational history or other skills: worked in [employer]. Family and Social Histories: Fredo reported he lives in a snf facility but will be staying with his grandchildren upon discharge from the hospital until he is able to go home. He reported he is not , he and his . He reported he has three grandchildren. Summary of Assessment Information/Prognosis: Fredo is a 78-year-old male. 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 Overall, prognosis is estimated to be guarded. 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 GIANCARLO CALDWELL [facility] Jul 27, 2019 14:45
--- NOTE | 2019-07-27 15:04 | Physical Therapy Daily Note ---
PT Daily Note-Current Subjective Pt. states he is happy to report he has had multiple BMs but feels like he isnt finished. Pain Location: No Pain Reported Appearance Pts brief appears incont BM and urine. Bed soiled with BM as well Mental Status Patient Orientation: Normal For Age Transfers Therapy Quality Codes: 6 Independent with activity with or without an assistive device 5 Patient requires set up or clean up by helper. Patient completes activity by themselves 4 Supervision or touching assist (CGA). [place] provide cues , steadying assist 3 The helper provides less than half the effort to complete the activity 2 The helper provides more than half the effort to complete the activity 1 Dependent. The helper does all the effort to complete an activity 7 Patient refused to complete or attempt activity 9 The patient did not perform the activity before the current illness or injury 88 Not attempted due to Medical conditions or safety concerns bulk of Rx for rolling left to right and pt. education and instruction in pushing self up in bed manuevering buttons and using hand railing to pull self up etc, pt. completed this x 2 with assist only once to stablize feet on bed Weight Bearing Right Lower Extremity: Right Weight Bearing/Tolerated Left Lower Extremity: Left Weight Bearing/Tolerated Exercises Supine Ex: Bridging, Ankle pumps, Rolling, Heel Slides, Hip abd/add Supine Reps: 15 (assisted) Treatments bed sheets and pads changed as well as pts brief . Pt. cleaned no brief donned. Assessment Current Status: Good Progress gives full effort, making slow, steady progress PT Short Term Goals Short Term Goals Time Frame: Aug 02, 2019 Wheelchair Distance: 150' PT User Experience Team Lead Goals Care Home Goals PT User Experience Team Lead Goals Time Frame: Aug 16, 2019 Sit to Lying (QC): 3 (Olu) Lying-Sitting on Side/Bed(QC): 3 (Kofi) Sit to Stand (QC): 1 Roll Left to Right (QC): 3 (Olu) Chair/Kul-dz-Soaid Xfer(QC): 3 (Olu) Car Transfer (QC): 1 Walk 10 feet (QC): 88 Walk 10ft-Uneven Surface(QC): 88 Walk 50ft with 2 Turns (QC): 88 Walk 150 ft (QC): 88 Wheel 50 feet with 2 turns (QC: 5 1 Step (curb) (QC): 88 4 Steps (QC): 88 12 Steps (QC): 88 Picking up an Object (QC): 88 PT Plan Treatment/Plan Treatment Plan: Bed Mobility, Concurrent Therapy, Education, Functional Activity Jesus Alberto, Functional Strength, Group Therapy, Gait, Safety, Therapeutic Exercise, Transfers Treatment Duration: Aug 16, 2019 Frequency: At least 5 of 7 days/Wk (IRF) Estimated Hrs Per Day: 1.5 hours per day Patient and/or Family Agrees t: Yes Safety Risks/Education Patient Education: Transfer Techniques, Correct Positioning, Disease Process, Safety Issues Teaching Recipient: Patient Teaching Methods: Demonstration, Discussion Response to Teaching: Verbalize Understanding, Return Demonstration, Reinforcement Needed Time/GCodes Time In: 1445 Time Out: 1500 Total Billed Treatment Time: 15 Total Billed Treatment 1,FA15m DEA PEÑALOZA NIGHT COURT MAGISTRATE Jul 27, 2019 15:04
--- NOTE | 2019-07-27 15:35 | Pulmonary Progress Note ---
Standard Progress Note Progress Notes Date Seen by Provider: Jul 27, 2019 Time Seen by Provider: 15:25 PT resting in bed; reports his breathing is normal for him and not having any worsening shortness of breath. He does have cough with phlegm. He has a hx of smoking and states he stopped in 1973. He feels he is getting a little stronger but states his legs still buckle on him. States he has had a cpap in the past and has a hx of abhijeet but he stopped wearing it as he "slept better without it." Assessment & Plan Lungs diminished Cervical spinal stenosis/ Lumbar spinal stenosis -s/p L2-3 laminectomy PT/OT following COPD -COPD is stable continue SVNS -nebulizers QID -IS -Monitor hx of ABHIJEET -untreated (Admission, labs, images, and Dr. Rodriguez's inpt progress notes were reviewed for continued care) SATURNINO GUEVARA APRN Jul 27, 2019 15:35
[2019-07-27 17:10] VITALS: BP 112/69
[2019-07-27] MEDS: cefTRIAXone FOR IV USE 1,000 MG in WATER (STERILE) FOR INJECTION 10 ML IV SCH (17:29)
--- NOTE | 2019-07-27 18:00 | NUR ---
6 BM'S TODAY. DID NOT REQUEST ANY PAIN MEDICATION TODAY.
[2019-07-27] MEDS: DONEPEZIL 10 MG (ARICEPT) TAB PO SCH (20:13)
[2019-07-27] MEDS: TERAZOSIN 5 MG (HYTRIN) CAPSULE PO SCH (20:13)
[2019-07-27] MEDS: amLODIPine 10 MG (NORVASC) TAB PO SCH (20:13)
[2019-07-27] MEDS: risperiDONE 0.25 MG (RisperDAL) TAB PO SCH (20:13)
--- NOTE | 2019-07-27 20:14 | Individualized Plan of Care ---
Individualized Plan of Care Rehab Nursing IPOC Order Admission Date Jul 26, 2019 at 11:00 Current Orders Orders Admission Order(Inpt,Obs,Sdc) (07/26/19 10:13) Vital Signs: Per Unit Policy ( 08,16,00 (07/26/19 10:13) Manganese Wheeler-Inpt Rehab Con (07/26/19 10:13) Rehab Nursing Orders-Ipoc (07/26/19 10:13) Physical Therapy Rehab Orders (07/26/19 10:13) Occupational Therapy Rehab Ord (07/26/19 10:13) Speech Therapy Rehab Orders (07/26/19 10:13) General/Regular (07/26/19 Dinner) Intake & Output 06,14,22 (07/26/19 10:13) Precautions (Aru) (07/26/19 10:13) Weekly Weight WEEK (07/26/19 10:13) Rehab-Intensity Of Therapy (07/26/19 10:13) Initiate Admission Nursing Pro .admission (07/26/19 10:13) Behavorial Health Consult (07/26/19 10:13) Initiate Admission Nursing Pro .admission (07/26/19 10:13) Cbc With Automated Diff (07/27/19 06:00) Comprehensive Metabolic Panel (07/27/19 06:00) Code/Resuscitation (07/26/19 12:13) Activity (07/26/19 12:13) Incentive Spirometry (Nursing) Q2H (07/26/19 12:13) Oxygen-Administer (07/26/19 12:13) Sequential Compression Device .once (07/26/19 12:13) Acetaminophen Tablet/Caplet (Tylenol T (07/26/19 12:15) Albuterol/Ipra Inhalation Soln (Duoneb I (07/26/19 15:00) Aspirin Enteric Coated Tablet (Ecotrin T (07/27/19 09:00) Carvedilol Tablet (Coreg Tablet) (07/26/19 21:00) Clopidogrel Tablet (Plavix Tablet) (07/27/19 09:00) Dexamethasone Tablet (Decadron Tablet) (07/26/19 13:00) Docusate Calcium Capsule (Surfak Capsule (07/26/19 21:00) Donepezil Tablet (Aricept Tablet) (07/26/19 21:00) Cyclobenzaprine Tablet (Flexeril Tablet) (07/26/19 12:15) Hydromorphone Injection (Dilaudid Inject (07/26/19 12:15) Haloperidol Injection (Haldol Injectio (07/26/19 12:15) Lactobacillus Acidophilus Cap (Acidophil (07/26/19 17:00) Loratadine Tablet (Claritin Tablet) (07/27/19 09:00) Hydrocodone/Apap 5/325 Tablet (Lortab 5 (07/26/19 12:15) Losartan Tablet (Cozaar Tablet) (07/27/19 09:00) Melatonin Tablet (Melatonin Tablet) (07/26/19 12:15) Nitroglycerin 0.4 Mg Btl 25's (Nitrostat (07/26/19 12:15) Ondansetron Oral Dissolve Tab (Zofran (07/26/19 12:15) Pantoprazole Tablet (Protonix Tablet) (07/27/19 07:00) Promethazine Tablet (Phenergan Tablet) (07/26/19 12:15) Polyethylene Glycol Powder Pkt (Miralax (07/26/19 12:15) Ceftriaxone For Iv Use (Rocephin For I (07/26/19 18:00) Metoclopramide Injection (Reglan Injecti (07/26/19 12:15) Metoclopramide Tablet (Reglan Tablet) (07/26/19 12:15) Senna S Tablet (Senokot S Tablet) (07/26/19 21:00) Sodium Chloride Flush (Catheter Flush Sy (07/26/19 12:15) Terazosin Capsule (Hytrin Capsule) (07/26/19 21:00) Tolterodine La Capsule (Detrol La Capsul (07/27/19 09:00) Ziprasidone Injection (Geodon Injection) (07/26/19 12:15) Ondansetron Injection (Zofran Injectio (07/26/19 12:15) Amlodipine Tablet (Norvasc Tablet) (07/26/19 21:00) Diphenhydramine Tablet (Benadryl Tablet) (07/26/19 12:15) Hydroxyzine Oral (Atarax Tablet) (07/26/19 12:15) Oxycodone Immediate Rel Tablet (Oxyir Ta (07/26/19 12:15) Risperidone Tablet (Risperdal Tablet) (07/26/19 21:00) Consult Orthopedic Surgery (07/26/19 12:13) Consult Pulmonology (07/26/19 12:13) Oxygen Delivery Set Up (07/26/19 12:13) Pastoral Consult (07/26/19 12:13) Svn Small Volume Nebulizer (07/26/19 12:13) Svn Small Volume Nebulizer (07/26/19 12:13) Patient Visit (07/26/19 ) Pt Eval Moderate Complexity (07/26/19 ) Functional Activities, Ea 15 (07/26/19 ) Patient Visit (07/26/19 ) Exercise Therap, Ea 15 Min (07/26/19 ) Influenza Quad (5+Yoa) 2018- (Afluria (08/03/19 09:00) Consult Cardiology (07/26/19 15:36) Dressing Order (Intervention) UD (07/26/19 15:48) Ambulate 08,12,20 (07/26/19 15:52) Sequential Compression Device Q4H (07/26/19 15:52) Dvt/Vte Risk - Notifiy Physici Q4H (07/26/19 15:52) Calcium Carbonate Chew Tablet (Antacid C (07/26/19 20:15) Diphenhydramine Tablet (Benadryl Tablet) (07/26/19 20:15) Bisacodyl Suppository (Dulcolax Supposit (07/27/19 08:00) Lactulose Oral Solution (Enulose Oral So (07/26/19 20:15) Melatonin Tablet (Melatonin Tablet) (07/26/19 20:15) Polyethylene Glycol Powder Pkt (Miralax (07/26/19 21:00) Senna S Tablet (Senokot S Tablet) (07/26/19 21:00) Patient Visit (07/27/19 ) Speech Sound Lang Comp (07/27/19 ) Duloxetine Capsule (Cymbalta Capsule) (07/28/19 09:00) Patient Visit (07/27/19 ) Functional Activities, Ea 15 (07/27/19 ) Rehab Nursing Orders: Ongoing Assess. of Cognitive Status, Ongoing Assess. of Function Status, Bladder Management, Bladder Training, Bowel Management, Bowel Training, Disease Management & Educaiton, DVT Prophylaxis, Fall Prevention, Fluid/Electrolyte/Nutrition Mgmt, Infection Prevention, Medication Management & Education, Management of Risks & Complications, Management of Skin Intergrity, Nutrition Management, Pain Management, Patient/Family Support, Safety Management Intensity of Therapy to be met Patient to be seen: Min.3h per day/5 of 7d PT IPOC Problem List: Activity Tolerance Treatment Plan: Continue Plan of Care Bed Mobility, Concurrent Therapy, Education, Functional Activity Jesus Alberto, Functional Strength, Group Therapy, Gait, Safety, Therapeutic Exercise, Transfers Treatment Duration: Aug 16, 2019 Frequency: At least 5 of 7 days/Wk (IRF) Estimated Hrs Per Day: 1.5 hours per day OT IPOC Problems: Decreased Activ Tolerance, Decreased UE Strength, Impaired Funct Balance, Impaired I ADL's, Impaired Self-Care Skills, Restricted Funct UE ROM OT Treatment, Training and Edu: Yes Plan of Care: ADL Retraining, Caregiver Training, Concurrent Therapy, Functional Mobility, Group Exercise/Act as Ind, UE Funct Exercise/Act Treatment Duration: Jul 27, 2019 Frequency: At least 5 of 7 days/Wk (IRF) Estimated Hrs Per Day: 1.[address] IPOC Speech Therapy Treatment Plan: Continue Plan of Care Treatment Duration: Aug 05, 2019 Frequency: 5 times per week Estimated Hrs Per Day: .5 hour per day Manganese Wheeler/Case Mgmt Manganese Wheeler/Case Managemen: Discharge Planning Dietitian/[employer]ora Product Consultant Dietitian/[employer] Product Consultant to monitor nutritional status and make changes and/or recommendations as needed and work with speech pathology on dietary upgrades as the occur. Neuropsychology/Psychology depression Physician IPOC Medical Issues being managed closely and that require the 24 hour availability of a physician: Recent cervical spine injury with delirium and UTI and h/o CABG at high risk for decompensation during acute recovery phase Medical Issues: Bowel/Bladder Function, DVT Prophylaxis, Falls Precautions, Fluid/Electrolyte/Nutrition Balance, Infection Protection, Pain Management Brief Synthesis of Preadmission Screen, Post-Admission Evaluation, and Therapy Evaluations: PT will work on transfers and strengthening due to spinal cord injury OT will help patient regain ADL independence and the use of assistive devices ST will focus on cognitive deficit Medical Prognosis: Good Anticipated Length of Stay: 14 days YANETH REEDER DO Jul 27, 2019 20:14
[2019-07-27 20:18] VITALS: BP 96/61
--- NOTE | 2019-07-27 20:18 | NUR ---
BP 96/61, HR 87. COREG NON ADMIN PER PROVIDER PARAMETERS. PATIENT INCONTINENT OF STOOL X 2 IN DEPEND. TOTAL ASSIST TO FOR FRANCIS CARE, CLOTHING, LINEN AND DEPEND CHANGE. BARRIER OINTMENT APPLIED AFTER EACH EPISODE. PATIENT ENCOURAGED TO HELP WITH FRANCIS CARE. MOD ASSISTANCE FOR ROLLING SIDE TO SIDE. PATIENT PROVIDES >50% OF EFFORT. DENIES NEEDS OR C/O AT THIS TIME. CONT TO MONITOR.
[2019-07-28] MEDS: DEXAMETHASONE 4 MG TAB (DECADRON) PO SCH ×4 (01:32→18:13)
[2019-07-28 05:49] VITALS: BP 120/73
[2019-07-28] MEDS: LACTOBACILLUS ACIDOPHILUS (PROBIOTIC) CAPSULE PO SCH ×3 (05:54→17:26)
[2019-07-28] MEDS: PANTOPRAZOLE 40 MG (PROTONIX) TAB PO SCH (05:54)
[2019-07-28] MEDS: RT-ALBUTEROL/IPRATROPIUM 3 ML (DUONEB) VIAL INH SCH ×4 (06:40→20:02)
--- NOTE | 2019-07-28 06:47 | NUR ---
Patient was on RA and no signs of distress was noted at this time; patient was given his Duoneb SVN BT and tolerated it well.
--- NOTE | 2019-07-28 08:19 | Cardiology Progress Note ---
Subjective Date Seen by Provider: Jul 28, 2019 Time Seen by Provider: 08:19 Subjective/Events-last exam Sitting up at edge of bed, no new complaint, denies any chest pain. Review of Systems General: No Chills, No Night Sweats, No Fatigue, No Malaise, No Appetite, No Other HEENT: No Head Aches, No Visual Changes, No Eye Pain, No Ear Pain, No Dysphasia, No Sinus Congestion, No Post Nasal Drip, No Sore Throat, No Other Pulmonary: No Dyspnea, No Cough, No Pleuritic Chest Pain, No Other Cardiovascular: No: Chest Pain, Palpitations, Orthopnea, Paroxysmal Noc. Dyspnea, Edema, Lt Headedness, Other Objective-Cardiology Exam Last Set of Vital Signs Vital Signs 07/28/19 07/28/19 07/28/19 05:49 09:42 10:23 Temp 36.7 Pulse 91 Resp 20 B/P (MAP) 113/71 (85) Pulse Ox 97 O2 Delivery Room Air Capillary Refill : Less Than 3 Seconds I&O Intake and Output 07/28/19 00:00 Intake Total 920 ml Output Total 1025 ml Balance -105 ml Intake Oral 920 ml Output Urine Total 1025 ml # Voids 3 # Bowel Movements 6 General: Alert, Oriented X3, Cooperative HEENT: Atraumatic, PERRLA Neck: Supple, No JVD, No Thyromegaly Lungs: Clear to Auscultation, Normal Air Movement Heart: Regular Rate, Normal S1, Normal S2, No Murmurs Abdomen: Normal Bowel Sounds, Soft, No Tenderness, No Hepatosplenomegaly, No Masses Extremities: No Clubbing, No Cyanosis, No Edema, Normal Pulses, No Tenderness/Swelling Skin: No Rashes, No Breakdown, No Significant Lesion Neuro: Normal Speech Psych/Mental Status: Mental Status NL, Mood NL A/P-Cardiology Admission Diagnosis Spinal Stenosis Chest pain CAD HTN Assessment/Plan Spinal stenosis, slipped disc, status post L2-3 laminectomy done on July 20, 2019, back pain continues to improve. Chest pain, chronic stable angina, no active chest pain today. Continue to monitor Coronary artery disease, history of CABG, multiple intervention the past, recent cardiac catheterization with drug-eluting stent deployment to the vein graft to the diagonal artery, had a patent GRACE to LAD with patent stent beyond the anastomosis in the LAD, small vessel disease otherwise done by Dr. Perez in [facility], currently back on Plavix. Continue to monitor Hypertension, continue to monitor blood pressure Sinus bradycardia. Secondary to medication, continue to monitor heart rate Hyperlipidemia, maintained on statin Generalized weakness, lower and upper extremity weakness, cervical spinal stenosis with slipped disc, s/p L 2-[address] Bhatt earlier this morning. Dementia Clinical Quality Measures DVT/VTE Risk/Contraindication: Risk Factor Score Per Nursin RFS Level Per Nursing on Admit: 4+=Very High Supervisory-Addendum Brief Supervisory Addendum Participated in pt care: history, MDM, physical Personally performed: exam, history, MDM Care discussed with: EZRA Notes: Patient was seen and evaluated with Desire, was feeling well, Had transient episode of dizziness with borderline hypotension earlier today Currently better. No chest pain Continue on current medication monitor DESIRE FULLER Jul 28, 2019 8:19 am CHRISTIANO DAVIS MD Jul 28, 2019 4:13 pm
--- NOTE | 2019-07-28 08:45 | PM&R Progress Note ---
Subjective HPI/CC On Admission Date Seen by Provider: Jul 28, 2019 Time Seen by Provider: 08:30 CC: Cervical spine injury non-traumatic HPI: This is a 78yoWM who presented to the Hospital with significant compromise in function, was found to have significant cervical spine stenosis causing generalized weakness globally, that was complicated with delirium post- operatively in addition to a UTI diagnosis. Pt previously doctored with Dr. Nickolas Danielson and did not see a regular driller and broacher although he has had Bypass surgery and has known CAD. Pt was doing well but had a lengthy acute care course and is in need of significant rehabilitation, prior to returning home. He seems to be very depressed, very tearful when I meet him and reports that he is about to turn 79 next month. I have tried to reassure him and I have put in a behavioral health consult in for him because of obvious tearfulness and overwhelmed feeling and loss of independence that he will need to be aggressively treated for in order to return home safely. Previously he used a walker for the past 6 months prior to admission, had lumbar spine surgery then was discharged home and home PT Collette Ramos evaluated the Pt to have such sev ere weakness that he was total care so he was sent to the ER for workup and from there thing progressed into cervical spine MRI showing severe stenosis and Dr. Bhatt performed surgery with good results but was so severe it was a dural tear during the surgery and he has become quite debilitated. He is urinating well, hasn't had a BM in several days so will need to work on that when he is admitted into the inpatient rehab unit. Overall he will be aggressively treated in order to re-gain his independence in order to return home. Subjective/Events-last exam Pt feels much better. Feels like being admitted into inpatient rehab has saved his life. Bowels are really aggressively moving even having bowel and bladder incontinence. Pain is much improved. Feeling like he is progressing rapidly. Overall very optimistic attitude. Cognitive deficit and will work on speech therapy to improve that during his stay. Discontinue Rocephin for Enterobacter UTI. Overall participating in all therapies. Checked meds and labs Conferred with RN Reviewed therapy notes Review of Systems Neurological: Weakness, Numbness, Incoordination Objective Exam Vital Signs Vital Signs Date Time Temp Pulse Resp B/P (MAP) Pulse Ox O2 Delivery O2 Flow Rate FiO2 07/29/19 07:08 94 Room Air 10/4/19 05:02 36.5 67 18 121/76 (91) Capillary Refill : Less Than 3 Seconds General Appearance: No Apparent Distress, WD/WN, Chronically ill HEENT: PERRL/EOMI, Normal ENT Inspection, Pharynx Normal, Moist Mucous Membranes Neck: Full Range of Motion, Normal Inspection, Non Tender, Supple Respiratory: Chest Non Tender, Lungs Clear, Normal Breath Sounds, No Accessory Muscle Use, No Respiratory Distress Cardiovascular: Regular Rate, Rhythm, No Edema, No Gallop, No JVD, No Murmur Gastrointestinal: Normal Bowel Sounds, No Organomegaly, No Pulsatile Mass, Non Tender, Soft Back: Normal Inspection, No CVA Tenderness, Decreased Range of Motion Extremity: Normal Capillary Refill, Normal Inspection, Normal Range of Motion, Non Tender, No Calf Tenderness, No Pedal Edema Neurologic/Psychiatric: Alert, Oriented x3, Normal Mood/Affect, logistics operations director II-XII Norm as Tested, Motor Weakness (generalized all extremities 3/5) Skin: Normal Color, Warm/Dry Lymphatic: No Adenopathy Results/Procedures Lab Patient resulted labs reviewed. FIM Transfers Therapy Code Descriptions/Definitions Functional Tama Measure: 0=Not Assessed/NA 4=Minimal Assistance 1=Total Assistance 5=Supervision or Setup 2=Maximal Assistance 6=Modified Tama 3=Moderate Assistance 7=Complete Tama Therapy Quality Codes: 6 Independent with activity with or without an assistive device 5 Patient requires set up or clean up by helper. Patient completes activity by themselves 4 Supervision or touching assist (CGA). [place] provide cues , steadying assist 3 The helper provides less than half the effort to complete the activity 2 The helper provides more than half the effort to complete the activity 1 Dependent. The helper does all the effort to complete an activity 7 Patient refused to complete or attempt activity 9 The patient did not perform the activity before the current illness or injury 88 Not attempted due to Medical conditions or safety concerns Transfers (B, C, W/C) (FIM): 2 Roll Left to Right (QC): 5 Sit to Lying (QC): 5 Sit to Stand (QC): 2 Chair/Qic-gn-Csgxa Xfer(QC): 2 Bed to/from Chair: 2 Car Transfer (QC): 1 Gait Training Does the Patient Walk?: Yes Gait (FIM): 5 Walk 10 feet (QC): 5 Walk 50 ft with 2 Turns(QC): 5 Walk 150 ft (QC): 5 Walking 10ft/uneven surface-QC: 88 Gait Persons Needed: 1 Gait Assistive Device: FWW Wheelchair Training Does the Pt Use a Wheelchair?: Yes Wheelchair (FIM): 1 Distance: 150' Wheel 50 ft with 2 turns (QC): 1 Wheel 150 ft (QC): 1 Type of Wheelchair: Manual ADL-Treatment Eating (QC): 6 Groomin (Pt brushed hair at bed level, he was able to gather hair brush from side table and complete task without assistance.) Oral Hygiene (QC): 5 (set up assistance to gather supplies, pt able to complete task at bed level, brushing dentures clean with a toothbrush.) Shower/Bathe Self (QC): 3 (Pt requires assist with BLE (feet) and entire back. Pt able to reach neck with cloth. Pt completes drying self with SBA.) Upper Body Dressing (QC): 5 (s/u for gathering clothing items; pt completes sitting on shower bench) Lower Body Dressing (QC): 1 (Pt was able to thread RLE into underwear and pants, and LLE into pants. Pt required assistance threading LLE into underwear and managing underwear and pants up. Pt completed task seated on [facility], Performing a stand with PT as OT assisted pt with management of clothing.) On/Off Footwear (QC): 2 (OT educated pt on using sock aid to don socks. OT assisted pt with doffing socks, & demo'd use of sock aid. Pt able to don sock on left foot using sock aid, required assistance with right foot secondary to dressing on heel of foot) Toileting Hygiene (QC): 1 (Assist x2, pt stood with PT from [facility] as OT performed hygine and clothing management for pt.) Toilet Transfer (QC): 1 (Pt able to perform SB transfer from EOB to drop arm commode with assist for hand placement and assist scooting across SB. Pt required x2 assist for squat pivot transfer from commode to recliner.) Assessment/Plan Assessment and Plan Assess & Plan/Chief Complaint Assessment: Spinal cord trauma from severe stenosis Debility CAD Delirium s/p UTI completed treatment Constipation now resolved 07/28/19 HTN HLP Cognitive deficit SLUMS Plan: Monitor urinary system IRF protocol Increase strength BM regimen to maintain to prevent constipation (1) Spinal cord injury (2) Generalized Weakness (3) Cervical spinal stenosis Status: Acute (4) Neuroforaminal stenosis of spine Status: Acute (5) Essential (primary) hypertension Status: Chronic (6) Lumbar spinal stenosis Status: Acute (7) Slipped intervertebral disc Status: Acute (8) Delirium Status: Acute (9) Incidental durotomy Status: Acute (10) CAD (coronary artery disease) Status: Chronic YANETH REEDER DO Jul 28, 2019 08:45
--- NOTE | 2019-07-28 08:57 | Physical Therapy Daily Note ---
PT Daily Note-Current Subjective Patient in bed pre tx, agrees to PT, voices no complaints of pain. Will be co- treating with OT due to SOB with activity, poor strength, endurance, balance, the need to coordinate UE and LE during activity. Appearance Patient in recliner post tx with nurse call, OT still working with patient for grooming. Mental Status Patient Orientation: Normal For Age Transfers Therapy Quality Codes: 6 Independent with activity with or without an assistive device 5 Patient requires set up or clean up by helper. Patient completes activity by themselves 4 Supervision or touching assist (CGA). [place] provide cues , steadying assist 3 The helper provides less than half the effort to complete the activity 2 The helper provides more than half the effort to complete the activity 1 Dependent. The helper does all the effort to complete an activity 7 Patient refused to complete or attempt activity 9 The patient did not perform the activity before the current illness or injury 88 Not attempted due to Medical conditions or safety concerns Roll Left to Right (QC): 4 Sit to Lying (QC): 4 Sit to Stand (QC): 2 Chair/Dzz-pc-Beroj Xfer(QC): 2 Patient sat to the edge of the bed with SBA, sliding board transfer to with mod assist, wheelchair to bathroom and then stand pivot to shower bench, undress, shower, stand to clean bottom and get pants up, stand pivot to WC, sliding board to recliner. PT worked on bed mobility and transfers and sliding board transfer, assist with safety and positioning during shower and dressing. OT worked on shower, dressing, cleaning, assist with transfers. Weight Bearing Right Lower Extremity: Right Weight Bearing/Tolerated Left Lower Extremity: Left Weight Bearing/Tolerated Treatments bed mobility, transfers, shower, dressing Assessment Current Status: Fair Progress improved supine to sit PT Short Term Goals Short Term Goals Time Frame: Aug 02, 2019 Wheelchair Distance: 150' PT Halfway Goals Inspector Chief Goals PT Inspector Chief Goals Time Frame: Aug 16, 2019 Sit to Lying (QC): 3 (Olu) Lying-Sitting on Side/Bed(QC): 3 (Kofi) Sit to Stand (QC): 1 Roll Left to Right (QC): 3 (Olu) Chair/Ebu-ec-Ucbgz Xfer(QC): 3 (Olu) Car Transfer (QC): 1 Walk 10 feet (QC): 88 Walk 10ft-Uneven Surface(QC): 88 Walk 50ft with 2 Turns (QC): 88 Walk 150 ft (QC): 88 Wheel 50 feet with 2 turns (QC: 5 1 Step (curb) (QC): 88 4 Steps (QC): 88 12 Steps (QC): 88 Picking up an Object (QC): 88 PT Plan Problem List Problem List: Activity Tolerance, Functional Strength, Safety, Balance, Gait, Transfer, Bed Mobility, ROM Treatment/Plan Treatment Plan: Continue Plan of Care Treatment Plan: Bed Mobility, Concurrent Therapy, Education, Functional Activity Jesus Alberto, Functional Strength, Group Therapy, Gait, Safety, Therapeutic Exercise, Transfers Treatment Duration: Aug 16, 2019 Frequency: At least 5 of 7 days/Wk (IRF) Estimated Hrs Per Day: 1.5 hours per day Patient and/or Family Agrees t: Yes Safety Risks/Education Patient Education: Transfer Techniques, Correct Positioning, Safety Issues Teaching Recipient: Patient Teaching Methods: Demonstration, Discussion Response to Teaching: Reinforcement Needed Time/GCodes Time In: 0800 Time Out: 0900 Total Billed Treatment Time: 60 Total Billed Treatment 1 visit FA 60' co-treated for the whole 60' ALANA CISNEROS PT Jul 28, 2019 08:57
--- NOTE | 2019-07-28 09:24 | Occupational Ther Daily Note ---
OT Current Status-Daily Note Subjective Pt laying in bed at start of OT tx, agreeable to OT tx with focus on ADLs. Pt did not verbalize pain rating this AM. Mental Status/Objective Therapy Code Descriptions/Definitions Functional [place] Measure: 0=Not Assessed/NA 4=Minimal Assistance 1=Total Assistance 5=Supervision or Setup 2=Maximal Assistance 6=Modified [place] 3=Moderate Assistance 7=Complete [place] Attachments: IV ADL-Treatment Therapy Code Descriptions/Definitions Functional [place] Measure: 0=Not Assessed/NA 4=Minimal Assistance 1=Total Assistance 5=Supervision or Setup 2=Maximal Assistance 6=Modified [place] 3=Moderate Assistance 7=Complete [place] Therapy Quality Codes: 6 Independent with activity with or without an assistive device 5 Patient requires set up or clean up by helper. Patient completes activity by themselves 4 Supervision or touching assist (CGA). [place] provide cues , steadying assist 3 The helper provides less than half the effort to complete the activity 2 The helper provides more than half the effort to complete the activity 1 Dependent. The helper does all the effort to complete an activity 7 Patient refused to complete or attempt activity 9 The patient did not perform the activity before the current illness or injury 88 Not attempted due to Medical conditions or safety concerns Oral Hygiene (QC): 6 Bathing Location: L Arm, R Arm, L Upper Leg, R Upper Leg, L Lower Leg (including foot), R Lower Leg (including foot), Chest, Abdomen, Perineal Area Shower/Bathe Self (QC): 1 (Pt educated on using long handled sponge to wash BLE. Pt was able to wash all parts of body except buttocks. Pt required x2 person assist with stand to wash buttocks, on assisting with washing, and one assisting with stand. Pt required mod verbal cues during shower for sequencing of task, pt washed his hair and then asked OT "now what?", OT had to cue pt on the next step throughout task and cue pt to take deep breaths and take rest breaks as needed.) Upper Body Dressing (QC): 5 (Pt able to doff hospital gown and don pull overshirt with set up assist of shirt.) Lower Body Dressing (QC): 1 (OT assisted pt with doffing brief while seated in shower. Pt was able to thread BLE into pants/underwear using dressing stick as needed. Pt reqired 2 person assist for managing pants/underwear up, one person assisting with clothing & another person assisting with stand.) Other Treatment OT/PT cotreat secondary to pt's decrease in overall function requiring the skill of 2 disciplines that a vocational rehabilitation technician could not perform. OT focused on UE placement, ADLs, sequencing and cueing while PT focused on LE placement and overall gross movements. Pt transferred from EOB to w/c using SB, and then he was taken into the bathroom for bathing. Pt transferred into the shower using a SB and completed bathing and dressing. Pt then transferred back to w/c using SB, and into recliner using SB. Once in chair, pt able to gu[place]ako BLE socks by crossing legs into figure 4 position. OT assisted pt with ordering breakfast secondary to pt stating he was unable to hear the phone very well, he was able to recall what he would like to eat and answer questions appropriately. Pt was able to complete oral hygiene seated at recliner. Post OT session, pt seated upright in recliner, call light in reach and all needs met. Education OT Patient Education: Correct positioning, Energy conservation, Modified ADL techniques, Progress toward Goal/Update tx plan, Purpose of tx/functional activities, Transfer techniques, Use of adapted equipment Teaching Recipient: Patient Teaching Methods: Demonstration Response to Teaching: Verbalize Understanding OT Short Term Goals Short Term Goals Lower Body Dressing(FIM): 3 Toilet/Commode Transfer(FIM): 3 Additional Short Term Goals: 1-Demonstrate ADL Tasks, 2-Verbalize Understandi ng, 3-ImproveStrength/Jesus Alberto 1=Demonstrate adherence to instructed precautions during ADL tasks. 2=Patient will verbalize/demonstrate understanding of assistive devices/modifications for ADL. 3=Patient will improve strength/tolerance for activity to enable patient to perform ADL's. OT Copy And Print Associate Goals Copy And Print Associate Goals Eating (QC): 6 Oral Hygiene (QC): 6 Shower/Bathe Self (QC): 6 Upper Body Dressing (QC): 6 Lower Body Dressing (QC): 5 On/Off Footwear (QC): 6 Toileting Hygiene (QC): 5 Toilet/Commode Transfer (QC): 5 Additional Goals: 1-Demonstrate ADL Tasks, 2-Verbalize Understanding, 3- ImproveStrength/Jesus Alberto 1=Demonstrate adherence to instructed precautions during ADL tasks. 2=Patient will verbalize/demonstrate understanding of assistive devices/modifications for ADL. 3=Patient will improve strength/tolerance for activity to enable patient to perform ADL's. OT Education/Plan Problem List/Assessment Assessment: Decreased Activ Tolerance, Decreased UE Strength, Impaired Funct Balance, Impaired I ADL's, Impaired Self-Care Skills Discharge Recommendations Plan/Recommendations: Continue POC Treatment Plan/Plan of Care Treatment,Training & Education: Yes Patient would benefit from OT for education, treatment and training to promote independence in ADL's, mobility, safety and/or upper extremity function for ADL's. Plan of Care: ADL Retraining, Caregiver Training, Concurrent Therapy, Functional Mobility, Group Exercise/Act as Ind, UE Funct Exercise/Act Treatment Duration: Jul 27, 2019 Frequency: At least 5 of 7 days/Wk (IRF) Estimated Hrs Per Day: 1.5 hours per day Agreement: Yes Rehab Potential: Fair Time/GCodes Start Time: 08:00 Stop Time: 09:05 Total Time Billed (hr/min): 65 Billed Treatment Time cotreat with PT [id number] ([id number]) 1, ADL 4 x65,min RACHID GONZALES OT Jul 28, 2019 09:24
[2019-07-28] MEDS: ASPIRIN E.C. 81 MG (ECOTRIN) TAB PO SCH (09:39)
[2019-07-28] MEDS: TOLTERODINE LA 4 MG (DETROL) CAP PO SCH (09:39)
[2019-07-28] MEDS: LOSARTAN 50 MG (COZAAR) TAB PO SCH (09:39)
[2019-07-28] MEDS: DULoxetine 30 MG (CYMBALTA) CAP PO SCH (09:39)
[2019-07-28] MEDS: LORATADINE (CLARITIN) 10 MG TAB PO SCH (09:40)
[2019-07-28] MEDS: CLOPIDOGREL 75 MG (PLAVIX) TABLET PO SCH (09:40)
[2019-07-28] MEDS: CARVEDILOL 3.125 MG (COREG) TABLET PO SCH ×2 (09:40→20:20)
[2019-07-28] MEDS: POLYETHYLENE GLYCOL 17 GM (MIRALAX) PACK PO SCH ×2 (09:40→19:53)
[2019-07-28] MEDS: DOCUSATE CALCIUM 240 MG (SURFAK) CAP PO SCH ×2 (09:40→19:53)
[2019-07-28] MEDS: BISACODYL 10 MG SUPP (DULCOLAX) PR SCH ×2 (09:40→19:53)
[2019-07-28] MEDS: SENNA W/DOCUSATE (SENOKOT S) TABLET PO SCH ×2 (09:40→19:53)
[2019-07-28 09:42] VITALS: BP 113/71
--- NOTE | 2019-07-28 09:58 | Speech Therapy Daily Note ---
Speech Daily Progress Note Subjective Date Seen by Provider: Jul 28, 2019 Time Seen by Provider: 00:30 Patient was eating a late breakfast after his shower with OT and PT this am. Objective Patient completed a series of safety awareness tasks related to her daily tasks at 75% with moderate verbal cues. Assessment Assessment Current Status: Good Progress Treatment Plan Continue Plan of Care Speech Short Term Goals Short Term Goals Short Term Goals 1) Patient will complete memory tasks related to his daily needs at 90% or greater, independently. 2) Patient will complete problem solving tasks related to his daily needs at 90% or greater, independently. 3) Patient will complete safety awareness tasks related to his daily needs at 90% or greater, independently. Speech Custodial Engineer Goals Group Home Goals Patient will improve cognitive-communication necessary for safety and daily living tasks with minimal assist. Speech-Plan Patient/Family Goals Patient/Family Goals: The patient plans on returning to his [facility] when he is able. The patient had told me [place] yesterday but [place] is the official town of residence. Treatment Plan Speech Therapy Treatment Plan: Continue Plan of Care Patient is doing well with all therapies. He states "this hospital saved my life". Treatment Duration: Aug 05, 2019 Frequency: 5 times per week Estimated Hrs Per Day: .5 hour per day Rehab Potential: Fair Barriers to Learning: Mild cognitive deficits. Pt/Family Agrees to Plan: Yes Safety Risks/Education Teaching Recipient: Patient Teaching Methods: Demonstration, Discussion Response to Teaching: Verbalize Understanding, Return Demonstration Education Topics Provided: Continued safety within his room. Time Speech Therapy Time In: 09:30 Speech Therapy Time Out: 10:00 Total Billed Time: 30 Billed Treatment Time [address] Jul 28, 2019 09:58
--- NOTE | 2019-07-28 10:11 | Progress Note ---
NIDIA NGUYEN [facility] 07/28/19 1011: Subjective Date Seen by a Provider: Jul 28, 2019 Time Seen by a Provider: 09:13 Subjective/Events-last exam Pt is thankful for all the help and assistance he has been receiving while down in the rehab unit. He thinks he has made some good progress since being down on the unit being able to lift his leg to his chest for the first time in a long time. He is able to sit on the bed and turn his feet to hang them off the side of the bed. He states he is exhausted after taking a shower this morning and is only able to get from the bed to the chair using the transfer board. When asked about some goals for the week he was not sure, but I asked if he thought maybe he could try to transfer from the bed to the chair without using the transfer board to which he agreed that was a good goal. He will also continue to put in a full effort in his therapy. Focused Exam Respiratory: Chest Non Tender, Lungs Clear, Normal Breath Sounds, No Accessory Muscle Use, No Respiratory Distress Cardiovascular: Regular Rate, Rhythm, No Gallop, No JVD, Normal Peripheral Pulses Peripheral Pulses: 2+ Dorsalis Pedis (R), 2+ Left Dors-Pedis (L), 2+ Radial Pulses (R), 2+ Radial Pulses (L) Skin: normal color, warm/dry Objective Exam Last Set of Vital Signs Vital Signs Date Time Temp Pulse Resp B/P (MAP) Pulse Ox O2 Delivery O2 Flow Rate FiO2 07/28/19 09:42 91 113/71 (85) 07/28/19 06:40 97 Room Air 07/28/19 05:49 36.7 20 Capillary Refill : Less Than 3 Seconds I&O Intake and Output 07/28/19 00:00 Intake Total 920 ml Output Total 1025 ml Balance -105 ml Intake Oral 920 ml Output Urine Total 1025 ml # Voids 3 # Bowel Movements 6 General: Alert, Oriented X3, Cooperative, Mild Distress HEENT: Atraumatic, EOMI Lungs: Clear to Auscultation Heart: Regular Rate, No Murmurs Extremities: No Cyanosis, Normal Pulses Neuro: Sensation Intact, Cranial Nerves 3-12 NL, Other (Right hip flexor, leg extension strength 4/5 ) Psych/Mental Status: Mental Status NL Assessment/Plan Assessment/Plan Assess & Plan/Chief Complaint Assessment: generalized weakness bilateral lower extremities right more severe than left s/p L2-L3 laminectomy Hypertension Hyperlipidemia Plan: Continue OT/PT to regain strength in lower extremities Monitor hypertension, continue medications Clinical Quality Measures DVT/VTE Risk/Contraindication: Risk Factor Score Per Nursin RFS Level Per Nursing on Admit: 4+=Very High ADENIKE REEDER DO 07/29/19 0808: Supervisory-Addendum Brief Verification & Attestation Participated in pt care: history, MDM, physical Personally performed: exam, history, MDM, supervision of care Care discussed with: Medical Student Procedures: n/a Results interpretation: Verified all documentation Verification and Attestation of Medical Student E/M Service A medical student performed and documented this service in my presence. I reviewed and verified all information documented by the medical student and made modifications to such information, when appropriate. I personally performed the physical exam and medical decision making. Adenike Reeder, Jul 29, 2019,08:08 NIDIA NGUYEN [facility] Jul 28, 2019 10:11 ADENIKE REEDER DO Jul 29, 2019 08:08
[2019-07-28] MEDS ORDERED: NS IV 1000 ML 1,000 ML ONE (11:10)
[2019-07-28] MEDS ORDERED: NS IV 1000 ML 1,000 ML IV ONE (11:15)
--- NOTE | 2019-07-28 11:23 | NUR ---
Reviewed Team Conference Summary with patient, and he was agreeable to information discussed, as well as agreeable to a continued stay with review on August 03. Will continue to follow for discharge planning.
--- NOTE | 2019-07-28 12:38 | NUR ---
C/O blurred vision, especially in left eye. Gets worse when head is up. BP 135/74- lying and 99/[address] Cowan notified with orders to give 1 Liter of NS at 100 mls/hr X1 and "let patient rest today".
--- NOTE | 2019-07-28 13:24 | Occ Therapy Progress Note ---
Therapy Progress Note Pt. on hold from OOB activities per nursing per physician. Pt. having significant BP changes with upright posture, as well as blurry vision. Nursing okays this therapist to attempt UE exercises at bed level. However, pt. declines all attempts that states that he is not feeling well at all. Is unable to articulate his symptoms, other than dizziness. OT offers anything that will assist with pt's comfort. Pt. would like to just rest at this point. OT notifies nursing immediately. 1, visit 1315 SADIE SAUL OT Jul 28, 2019 13:24
--- NOTE | 2019-07-28 13:37 | NUR ---
New Allevyn to bilateral heels. Dressing change to back incision. AllKare applied to surrounding tissue and covered with Telfa and ABD. Secured with paper tape D/T tape allergy.
--- NOTE | 2019-07-28 14:20 | Occ Therapy Progress Note ---
Therapy Progress Note Pt unable to attend group therapy this date. Per nursing, pt is having significant BP changes with upright posture, as well as blurry vision. Nursing okays completing bed exercises. SNEHA GARCIA Jul 28, 2019 14:20
[2019-07-28] MEDS: ACETAMINOPHEN 325 MG TABLET PO PRN (17:27)
--- NOTE | 2019-07-28 17:27 | NUR ---
Patient states vision is still slightly blurry, but feels much better overall. Tylenol given for C/O headache.
[2019-07-28 17:52] VITALS: BP 117/74
--- NOTE | 2019-07-28 18:21 | NUR ---
PATIENT DID NOT GET 1500 SVN BT DUE TO RT WAS WITH AN EMERGENT PATIENT IN THE NURSERY
[2019-07-28] MEDS: amLODIPine 10 MG (NORVASC) TAB PO SCH (20:19)
[2019-07-28] MEDS: TERAZOSIN 5 MG (HYTRIN) CAPSULE PO SCH (20:19)
[2019-07-28 20:20] VITALS: BP 128/76
[2019-07-28] MEDS: risperiDONE 0.25 MG (RisperDAL) TAB PO SCH (20:20)
[2019-07-28] MEDS: DONEPEZIL 10 MG (ARICEPT) TAB PO SCH (20:20)
[2019-07-29] MEDS: DEXAMETHASONE 4 MG TAB (DECADRON) PO SCH ×4 (01:28→18:42)
[2019-07-29] MEDS: HYDROcodone/APAP 5 MG/325 MG (LORTAB) TAB PO PRN ×2 (02:30→15:23)
[2019-07-29 05:02] VITALS: BP 121/76
[2019-07-29] MEDS: PANTOPRAZOLE 40 MG (PROTONIX) TAB PO SCH (06:14)
[2019-07-29] MEDS: LACTOBACILLUS ACIDOPHILUS (PROBIOTIC) CAPSULE PO SCH ×3 (06:15→17:12)
[2019-07-29] MEDS: RT-ALBUTEROL/IPRATROPIUM 3 ML (DUONEB) VIAL INH SCH ×4 (07:06→19:47)
--- NOTE | 2019-07-29 08:09 | Progress Note ---
NIDIA NGUYEN [facility] 07/29/19 0809: Subjective Date Seen by a Provider: Jul 29, 2019 Time Seen by a Provider: 07:22 Subjective/Events-last exam Pt reported feeling fatigued and like he didn't want to do anything yesterday afternoon. He also reported having a headache, blurry vision, and diaphoresis during the same period of time. He states he feels weaker today and is not able to slide himself up in the bed like he had previously been able to the day before. He does report having some SOB and a cough with exercise. He reports no bowel movements, but he is passing gas still. Focused Exam Respiratory: Lungs Clear, Normal Breath Sounds, No Respiratory Distress Cardiovascular: Regular Rate, Rhythm, No JVD Skin: normal color, warm/dry Objective Exam Last Set of Vital Signs Vital Signs Date Time Temp Pulse Resp B/P (MAP) Pulse Ox O2 Delivery O2 Flow Rate FiO2 07/29/19 07:08 94 Room Air 07/29/19 05:02 36.5 67 18 121/76 (91) Capillary Refill : Less Than 3 Seconds I&O Intake and Output 07/29/19 00:00 Intake Total 2110 ml Output Total 975 ml Balance 1135 ml Intake Oral 1110 ml IV Total 1000 ml Output Urine Total 975 ml # Voids 8 # Bowel Movements 5 General: Alert, Oriented X3, Cooperative, Mild Distress HEENT: Atraumatic, EOMI Lungs: Clear to Auscultation, Normal Air Movement Heart: Regular Rate, No Murmurs Neuro: Normal Speech, Normal Tone Results Lab Laboratory Tests 07/28/19 15:21: Glucometer 124H Assessment/Plan Assessment/Plan Assess & Plan/Chief Complaint Assessment: generalized weakness bilateral lower extremities right more severe than left s/p L2-L3 laminectomy Hypertension Hyperlipidemia Exercise induced fatigue Plan: Continue OT/PT to regain strength in lower extremities Monitor hypertension, continue medications Monitor fatigue and afternoon symptoms Clinical Quality Measures DVT/VTE Risk/Contraindication: Risk Factor Score Per Nursin RFS Level Per Nursing on Admit: 4+=Very High ADENIKE REEDER DO 07/29/19 1153: Supervisory-Addendum Brief Verification & Attestation Participated in pt care: history, MDM, physical Personally performed: exam, history, MDM, supervision of care Care discussed with: Medical Student Procedures: n/a Results interpretation: Verified all documentation Verification and Attestation of Medical Student E/M Service A medical student performed and documented this service in my presence. I reviewed and verified all information documented by the medical student and made modifications to such information, when appropriate. I personally performed the physical exam and medical decision making. Adenike Reeder, Jul 29, 2019,11:53 NIDIA NGUYEN [facility] Jul 29, 2019 08:09 ADENIKE REEDER DO Jul 29, 2019 11:53
[2019-07-29 08:50] VITALS: BP 122/74
[2019-07-29] MEDS: CARVEDILOL 3.125 MG (COREG) TABLET PO SCH ×2 (08:52→20:28)
[2019-07-29] MEDS: LORATADINE (CLARITIN) 10 MG TAB PO SCH (08:52)
[2019-07-29] MEDS: LOSARTAN 50 MG (COZAAR) TAB PO SCH (08:53)
[2019-07-29] MEDS: TOLTERODINE LA 4 MG (DETROL) CAP PO SCH (08:53)
[2019-07-29] MEDS: DULoxetine 30 MG (CYMBALTA) CAP PO SCH (08:53)
[2019-07-29] MEDS: ASPIRIN E.C. 81 MG (ECOTRIN) TAB PO SCH ×2 (08:53→09:23)
[2019-07-29] MEDS: CLOPIDOGREL 75 MG (PLAVIX) TABLET PO SCH (08:56)
[2019-07-29] MEDS: POLYETHYLENE GLYCOL 17 GM (MIRALAX) PACK PO SCH ×2 (08:56→19:39)
[2019-07-29] MEDS: SENNA W/DOCUSATE (SENOKOT S) TABLET PO SCH ×2 (08:56→20:27)
[2019-07-29] MEDS: DOCUSATE CALCIUM 240 MG (SURFAK) CAP PO SCH ×2 (08:57→20:28)
--- NOTE | 2019-07-29 08:58 | Physical Therapy Daily Note ---
PT Daily Note-Current Subjective Patient in bed pre tx, agrees to PT, voices no complaints of pain. Will be co- treating with OT due to poor patient mobility, strength, endurance, poor weight bearing on legs, impaired balance, the need to coordinate UE and LE during activity. Appearance Patient in recliner post tx with nurse call, phone, tray, all needs met. Mental Status Patient Orientation: Normal For Age Transfers Therapy Quality Codes: 6 Independent with activity with or without an assistive device 5 Patient requires set up or clean up by helper. Patient completes activity by themselves 4 Supervision or touching assist (CGA). [place] provide cues , steadying assist 3 The helper provides less than half the effort to complete the activity 2 The helper provides more than half the effort to complete the activity 1 Dependent. The helper does all the effort to complete an activity 7 Patient refused to complete or attempt activity 9 The patient did not perform the activity before the current illness or injury 88 Not attempted due to Medical conditions or safety concerns Transfers (B, C, W/C): 3 Roll Left to Right (QC): 4 Sit to Lying (QC): 4 Sit to Stand (QC): 2 Chair/Fpl-ti-Linur Xfer(QC): 3 Patient performs supine to sit with SBA, sliding board transfer with mod assist (performed 4 times), and sit to stand with max assist in parallel bars (3 times for about 40 seconds each time). Weight Bearing Right Lower Extremity: Right Weight Bearing/Tolerated Left Lower Extremity: Left Weight Bearing/Tolerated Wheelchair Training Does the Pt Use a Wheelchair?: Yes Distance: 100' Wheel 50 ft with 2 turns (QC): 5 Type of Wheelchair: Manual Exercises seated limits of stability training 4 ways, reaching for cones, catching ball, trunk strengthening and balance training Treatments bed mobility and transfers, WC mobility, strengthening Assessment Current Status: Fair Progress slowly improving transfers PT Short Term Goals Short Term Goals Time Frame: Aug 02, 2019 Wheelchair Distance: 150' PT Sign Builder Goals Custodial Goals PT Sign Builder Goals Time Frame: Aug 16, 2019 Sit to Lying (QC): 3 (Olu) Lying-Sitting on Side/Bed(QC): 3 (Kofi) Sit to Stand (QC): 1 Roll Left to Right (QC): 3 (Olu) Chair/Tpo-eg-Rylnt Xfer(QC): 3 (Olu) Car Transfer (QC): 1 Walk 10 feet (QC): 88 Walk 10ft-Uneven Surface(QC): 88 Walk 50ft with 2 Turns (QC): 88 Walk 150 ft (QC): 88 Wheel 50 feet with 2 turns (QC: 5 1 Step (curb) (QC): 88 4 Steps (QC): 88 12 Steps (QC): 88 Picking up an Object (QC): 88 PT Plan Problem List Problem List: Activity Tolerance, Functional Strength, Safety, Balance, Gait, Transfer, Bed Mobility, ROM Treatment/Plan Treatment Plan: Continue Plan of Care Treatment Plan: Bed Mobility, Concurrent Therapy, Education, Functional Activity Jesus Alberto, Functional Strength, Group Therapy, Gait, Safety, Therapeutic Exercise, Transfers Treatment Duration: Aug 16, 2019 Frequency: At least 5 of 7 days/Wk (IRF) Estimated Hrs Per Day: 1.5 hours per day Patient and/or Family Agrees t: Yes Safety Risks/Education Patient Education: Transfer Techniques, Correct Positioning, W/C Management, Safety Issues Teaching Recipient: Patient Teaching Methods: Demonstration, Discussion Response to Teaching: Reinforcement Needed Time/GCodes Time In: 0800 Time Out: 0900 Total Billed Treatment Time: 60 Total Billed Treatment 1 visit EX 30' FA 30' Co-treated for 60'. PT worked on bed mobility, transfers, WC mobility, seated balance and strengthening, OT worked on reaching and balance activities, UE positioning and strengthening. ALANA CISNEROS PT Jul 29, 2019 08:58
--- NOTE | 2019-07-29 09:00 | NUR ---
QC Clarification Discussed QC with interdisciplinary team: PT, OT and nursing. Admit QC for: 1 step (curb) - 88 4 steps - 88 12 steps - 88 Picking up an object - 88
--- NOTE | 2019-07-29 09:08 | Occupational Ther Daily Note ---
OT Current Status-Daily Note Subjective Pt in bed, agrees to treatment. Mental Status/Objective Therapy Code Descriptions/Definitions Functional [place] Measure: 0=Not Assessed/NA 4=Minimal Assistance 1=Total Assistance 5=Supervision or Setup 2=Maximal Assistance 6=Modified [place] 3=Moderate Assistance 7=Complete [place] ADL-Treatment Therapy Code Descriptions/Definitions Functional [place] Measure: 0=Not Assessed/NA 4=Minimal Assistance 1=Total Assistance 5=Supervision or Setup 2=Maximal Assistance 6=Modified [place] 3=Moderate Assistance 7=Complete [place] Therapy Quality Codes: 6 Independent with activity with or without an assistive device 5 Patient requires set up or clean up by helper. Patient completes activity by themselves 4 Supervision or touching assist (CGA). [place] provide cues , steadying assist 3 The helper provides less than half the effort to complete the activity 2 The helper provides more than half the effort to complete the activity 1 Dependent. The helper does all the effort to complete an activity 7 Patient refused to complete or attempt activity 9 The patient did not perform the activity before the current illness or injury 88 Not attempted due to Medical conditions or safety concerns Other Treatment Co-treat with PT secondary to impaired strength, mobility, activity tolerance, and balance and the need for two skilled clinicians to coordinate activities to improve functional deficits. Pt supine to sit with SBA. Pt donned socks with set up while seated EOB. Transfer EOB to w/c with sliding board with bed raised to allow for easier t ransfer. Pt performed w/c mobility to therapy gym with SBA using bilateral UE/LE. Pt stood in parallel bars x3 trials with maximal assistance. Able to stand 30-40 seconds each trial. Extended rest breaks taken between standing secondary to decreased activity tolerance. Pt transferred w/c <-> edge of mat using sliding board with mod assist. Pt completed sitting balance activities of catching/throwing ball and reaching activity with bilateral UE to increase dynamic sitting balance and activity tolerance. Rest breaks taken as needed secondary to decreased activity tolerance. Pt performed seated core strengthening and balance activities to improve strength for functional task completion. Pt performed w/c mobility back to room and transferred to recliner chair using slide board. Pt sitting in chair with needs met and RN present after session. OT focusing on UE management/positioning, balance, and reaching. PT focusing on transfers, mobility, and balance. OT Short Term Goals Short Term Goals Lower Body Dressing(FIM): 3 Toilet/Commode Transfer(FIM): 3 Additional Short Term Goals: 1-Demonstrate ADL Tasks, 2-Verbalize Understanding, 3-ImproveStrength/Jesus Alberto 1=Demonstrate adherence to instructed precautions during ADL tasks. 2=Patient will verbalize/demonstrate understanding of assistive devices/modifications for ADL. 3=Patient will improve strength/tolerance for activity to enable patient to perform ADL's. OT Environmental Compliance Inspector Goals Environmental Compliance Inspector Goals Eating (QC): 6 Oral Hygiene (QC): 6 Shower/Bathe Self (QC): 6 Upper Body Dressing (QC): 6 Lower Body Dressing (QC): 5 On/Off Footwear (QC): 6 Toileting Hygiene (QC): 5 Toilet/Commode Transfer (QC): 5 Additional Goals: 1-Demonstrate ADL Tasks, 2-Verbalize Understanding, 3-ImproveStrength/Jesus Alberto 1=Demonstrate adherence to instructed precautions during ADL tasks. 2=Patient will verbalize/demonstrate understanding of assistive devices/modifications for ADL. 3=Patient will improve strength/tolerance for activity to enable patient to perf orm ADL's. OT Education/Plan Discharge Recommendations Plan/Recommendations: Continue POC Treatment Plan/Plan of Care Patient would benefit from OT for education, treatment and training to promote independence in ADL's, mobility, safety and/or upper extremity function for ADL's. Plan of Care: ADL Retraining, Caregiver Training, Concurrent Therapy, Functional Mobility, Group Exercise/Act as Ind, UE Funct Exercise/Act Treatment Duration: Jul 27, 2019 Frequency: At least 5 of 7 days/Wk (IRF) Estimated Hrs Per Day: 1.5 hours per day Agreement: Yes Rehab Potential: Fair Time/GCodes Start Time: 08:00 Stop Time: 09:00 Total Time Billed (hr/min): 60 Billed Treatment Time 1 visit, FAx4(60minutes) Co-treat with PT LISANDRO STONE OT Jul 29, 2019 09:08
--- NOTE | 2019-07-29 09:10 | NUR ---
QC Clarification Discussed QC with interdisciplinary team: PT, OT and nursing. Admit QC are as follows: 1 step (curb) - 88 4 steps - 88 12 steps - 88 Picking up an object - 88
[2019-07-29] MEDS: BISACODYL 10 MG SUPP (DULCOLAX) PR SCH ×2 (09:58→20:16)
--- NOTE | 2019-07-29 11:10 | PM&R Progress Note ---
Subjective HPI/CC On Admission Date Seen by Provider: Jul 29, 2019 Time Seen by Provider: 09:00 CC: Cervical spine injury non-traumatic HPI: This is a 78yoWM who presented to the Hospital with significant compromise in function, was found to have significant cervical spine stenosis causing generalized weakness globally, that was complicated with delirium post- operatively in addition to a UTI diagnosis. Pt previously doctored with Dr. Nickolas Danielson and did not see a regular political science research assistant although he has had Bypass surgery and has known CAD. Pt was doing well but had a lengthy acute care course and is in need of significant rehabilitation, prior to returning home. He seems to be very depressed, very tearful when I meet him and reports that he is about to turn 79 next month. I have tried to reassure him and I have put in a behavioral health consult in for him because of obvious tearfulness and overwhelmed feeling and loss of independence that he will need to be aggressively treated for in order to return home safely. Previously he used a walker for the past 6 months prior to admission, had lumbar spine surgery then was discharged home and home PT Collette Ramos evaluated the Pt to have such sev ere weakness that he was total care so he was sent to the ER for workup and from there thing progressed into cervical spine MRI showing severe stenosis and Dr. Bhatt performed surgery with good results but was so severe it was a dural tear during the surgery and he has become quite debilitated. He is urinating well, hasn't had a BM in several days so will need to work on that when he is admitted into the inpatient rehab unit. Overall he will be aggressively treated in order to re-gain his independence in order to return home. Subjective/Events-last exam Pt feels much better. Had some afternoon fatigue yesterday but he is more active than he previously was Bowels are being monitored closely Pain is much improved. Started antidepressant yesterday Overall very optimistic attitude. Cognitive deficit and will work on speech therapy to improve that during his stay. Overall participating in all therapies. Checked meds and labs Conferred with RN Reviewed therapy notes Review of Systems Neurological: Weakness, Numbness, Incoordination Objective Exam Vital Signs Vital Signs Date Time Temp Pulse Resp B/P (MAP) Pulse Ox O2 Delivery O2 Flow Rate FiO2 07/29/19 09:00 Room Air 07/29/19 07:08 94 07/29/19 05:02 36.5 67 18 121/76 (91) Capillary Refill : Less Than 3 Seconds General Appearance: No Apparent Distress, WD/WN, Chronically ill HEENT: PERRL/EOMI, Normal ENT Inspection, Pharynx Normal, Moist Mucous Membranes Neck: Full Range of Motion, Normal Inspection, Non Tender, Supple Respiratory: Lungs Clear, Normal Breath Sounds, No Respiratory Distress Cardiovascular: Regular Rate, Rhythm, No JVD Gastrointestinal: Normal Bowel Sounds, No Organomegaly, No Pulsatile Mass, Non Tender, Soft Back: Normal Inspection, No CVA Tenderness, Decreased Range of Motion Extremity: Normal Capillary Refill, Normal Inspection, Normal Range of Motion, Non Tender, No Calf Tenderness, No Pedal Edema Neurologic/Psychiatric: Alert, Oriented x3, Normal Mood/Affect, security and privacy consultant II-XII Norm as Tested, Motor Weakness (generalized all extremities 3/5) Skin: Normal Color, Warm/Dry Lymphatic: No Adenopathy Results/Procedures Lab Patient resulted labs reviewed. FIM Transfers Therapy Code Descriptions/Definitions Functional [place] Measure: 0=Not Assessed/NA 4=Minimal Assistance 1=Total Assistance 5=Supervision or Setup 2=Maximal Assistance 6=Modified [place] 3=Moderate Assistance 7=Complete [place] Therapy Quality Codes: 6 Independent with activity with or without an assistive device 5 Patient requires set up or clean up by helper. Patient completes activity by themselves 4 Supervision or touching assist (CGA). [place] provide cues , steadying assist 3 The helper provides less than half the effort to complete the activity 2 The helper provides more than half the effort to complete the activity 1 Dependent. The helper does all the effort to complete an activity 7 Patient refused to complete or attempt activity 9 The patient did not perform the activity before the current illness or injury 88 Not attempted due to Medical conditions or safety concerns Transfers (B, C, W/C) (FIM): 3 Roll Left to Right (QC): 4 Sit to Lying (QC): 4 Sit to Stand (QC): 2 Chair/Slt-fd-Knsqa Xfer(QC): 3 Bed to/from Chair: 2 Car Transfer (QC): 1 Gait Training Does the Patient Walk?: Yes Gait (FIM): 5 Walk 10 feet (QC): 5 Walk 50 ft with 2 Turns(QC): 5 Walk 150 ft (QC): 5 Walking 10ft/uneven surface-QC: 88 Gait Persons Needed: 1 Gait Assistive Device: FWW Wheelchair Training Does the Pt Use a Wheelchair?: Yes Wheelchair (FIM): 1 Distance: 100' Wheel 50 ft with 2 turns (QC): 5 Wheel 150 ft (QC): 1 Type of Wheelchair: Manual ADL-Treatment Eating (QC): 6 Groomin (Pt brushed hair at bed level, he was able to gather hair brush from side table and complete task without assistance.) Oral Hygiene (QC): 6 Bathing Location: L Arm, R Arm, L Upper Leg, R Upper Leg, L Lower Leg (including foot), R Lower Leg (including foot), Chest, Abdomen, Perineal Area Shower/Bathe Self (QC): 1 (Pt educated on using long handled sponge to wash BLE. Pt was able to wash all parts of body except buttocks. Pt required x2 person assist with stand to wash buttocks, on assisting with washing, and one assisting with stand. Pt required mod verbal cues during shower for sequencing of task, pt washed his hair and then asked OT "now what?", OT had to cue pt on the next step throughout task and cue pt to take deep breaths and take rest breaks as needed.) Upper Body Dressing (QC): 5 (Pt able to doff hospital gown and don pull overshirt with set up assist of shirt.) Lower Body Dressing (QC): 1 (OT assisted pt with doffing brief while seated in shower. Pt was able to thread BLE into pants/underwear using dressing stick as needed. Pt reqired 2 person assist for managing pants/underwear up, one person assisting with clothing & another person assisting with stand.) On/Off Footwear (QC): 2 (OT educated pt on using sock aid to don socks. OT assisted pt with doffing socks, & demo'd use of sock aid. Pt able to don sock on left foot using sock aid, required assistance with right foot secondary to dressing on heel of foot) Toileting Hygiene (QC): 1 (Assist x2, pt stood [place] [facility] [place] performed hygine and clothing management for pt.) Toilet Transfer (QC): 1 (Pt able to perform SB transfer from EOB to drop arm commode with assist for hand placement and assist scooting across SB. Pt required x2 assist for squat pivot transfer from commode to recliner.) Assessment/Plan Assessment and Plan Assess & Plan/Chief Complaint Assessment: Spinal cord trauma from severe stenosis Debility CAD Delirium s/p UTI completed treatment Constipation now resolved 07/28/19 HTN HLP Cognitive deficit SLUMS Depression Plan: Monitor urinary system IRF protocol Increase strength BM regimen to maintain to prevent constipation Start antidepressant (1) Spinal cord injury (2) Generalized Weakness (3) Cervical spinal stenosis Status: Acute (4) Neuroforaminal stenosis of spine Status: Acute (5) Essential (primary) hypertension Status: Chronic (6) Lumbar spinal stenosis Status: Acute (7) Slipped intervertebral disc Status: Acute (8) Delirium Status: Acute (9) Incidental durotomy Status: Acute (10) CAD (coronary artery disease) Status: Chronic YANETH REEDER DO Jul 29, 2019 11:10
--- NOTE | 2019-07-29 12:22 | Pulmonary Progress Note ---
Standard Progress Note Progress Notes Date Seen by Provider: Jul 29, 2019 Time Seen by Provider: 11:30 Pt is sitting up in bed and denies any shortness of breath or cough. He voices no new concerns. Assessment & Plan Lungs cta Cervical spinal stenosis/ Lumbar spinal stenosis -s/p L2-3 laminectomy PT/OT following COPD -COPD is stable continue SVNS -nebulizers QID -IS -Monitor hx of ROYAL -untreated (Admission, labs, images, and Dr. Rodriguez's inpt progress notes were reviewed for continued care) SATURNINO GUEVARA APRN Jul 29, 2019 12:22
--- NOTE | 2019-07-29 14:31 | Therapy Group Daily Note ---
Therapy Daily Group Note Patient Education Topic Other List Below (memory) Exercises LE Seated Exercise, UE Exercise Session Ratio (pt:therapist): 4:1 Goal of Session: Memory Strategies, UE/LE Strengthing Goal Met for this Session: Yes Pt Benefit of Group: Contributions to Others, Increased Functional Strength, Improved Cognition, Recognition of Peers, Socialization Other/Notes Pt maneuvered w/c to <-> from OT group at [facility]. Group consisted introductions (name, place born, favorite food), socialization, memory strategies, memory activity, memory education and seated LE/UE exercises. Pt introduced self appropriately and actively listened to peers. Pt acknowledged understanding of educational topics with gestures and verbally. Contributed to conversations and interacted with peers throughout group. Pt able to complete UE/LE seated exercises then remembered one exercise to lead group. Pt did have difficulty with memory activity. After group, pt sitting in w/c with call light/phone in reach. All needs met in room. Start Time: 13:00 Stop Time: 14:10 Total Billed Treatment Time: 70 Total Billed Treatment 1-GRP SNEHA GARCIA Jul 29, 2019 14:31
--- NOTE | 2019-07-29 14:52 | Speech Therapy Daily Note ---
Speech Daily Progress Note Subjective Date Seen by Provider: Jul 29, 2019 Time Seen by Provider: 00:30 Patient was resting in his chair after group therapy this afternoon. Objective Patient completed a series of general information questions with 80% accuracy given 25% verbal cues. Assessment Assessment Current Status: Good Progress Treatment Plan Continue Plan of Care Speech Short Term Goals Short Term Goals Short Term Goals 1) Patient will complete memory tasks related to his daily needs at 90% or greater, independently. 2) Patient will complete problem solving tasks related to his daily needs at 90% or greater, independently. 3) Patient will complete safety awareness tasks related to his daily needs at 90% or greater, independently. Speech [facility] Goals Laser Print Operator Goals Patient will improve cognitive-communication necessary for safety and daily living tasks with minimal assist. Speech-Plan Patient/Family Goals Patient/Family Goals: Patient plans on returning home when he is able. He may have to stay with his grandaughter until he gets strong enough to be on his own. Treatment Plan Speech Therapy Treatment Plan: Continue Plan of Care Patient is progressing as a result of skilled ST services. Treatment Duration: Aug 05, 2019 Frequency: 5 times per week Estimated Hrs Per Day: .5 hour per day Rehab Potential: Fair Barriers to Learning: Patient has mild cognitive deficits. Pt/Family Agrees to Plan: Yes Safety Risks/Education Teaching Recipient: Patient Teaching Methods: Demonstration, Discussion Response to Teaching: Verbalize Understanding, Return Demonstration Education Topics Provided: Continued safety within his room. Time Speech Therapy Time In: 14:15 Speech Therapy Time Out: 14:45 Total Billed Time: 30 Billed Treatment Time 1, PATRICIA Rae Jul 29, 2019 14:52
--- NOTE | 2019-07-29 15:06 | Cardiology Progress Note ---
Subjective Date Seen by Provider: Jul 29, 2019 Time Seen by Provider: 15:05 Subjective/Events-last exam Patient is sitting in bed, feeling better, no chest pain, still having back pain Review of Systems General: No Chills, No Night Sweats, No Fatigue, No Malaise, No Appetite, No Other HEENT: No Head Aches, No Visual Changes, No Eye Pain, No Ear Pain, No Dysphasia, No Sinus Congestion, No Post Nasal Drip, No Sore Throat, No Other Pulmonary: No Dyspnea, No Cough, No Pleuritic Chest Pain, No Other Cardiovascular: No: Chest Pain, Palpitations, Orthopnea, Paroxysmal Noc. Dyspnea, Edema, Lt Headedness, Other Objective-Cardiology Exam Last Set of Vital Signs Vital Signs 07/29/19 07/29/19 07/29/19 05:02 07:08 09:00 Temp 36.5 Pulse 67 Resp 18 B/P (MAP) 121/76 (91) Pulse Ox 94 O2 Delivery Room Air Capillary Refill : Less Than 3 Seconds I&O Intake and Output 07/29/19 00:00 Intake Total 2110 ml Output Total 975 ml Balance 1135 ml Intake Oral 1110 ml IV Total 1000 ml Output Urine Total 975 ml # Voids 8 # Bowel Movements 5 General: Alert, Oriented X3, Cooperative, Mild Distress HEENT: Atraumatic, EOMI Neck: Supple, No JVD, No Thyromegaly Lungs: Clear to Auscultation, Normal Air Movement Heart: Regular Rate, Normal S1, Normal S2, No Murmurs Abdomen: Normal Bowel Sounds, Soft, No Tenderness, No Hepatosplenomegaly, No Masses Extremities: No Cyanosis, Normal Pulses Skin: No Rashes, No Breakdown, No Significant Lesion Neuro: Normal Speech, Normal Tone Psych/Mental Status: Mental Status NL Results Lab Laboratory Tests Test 07/28/19 15:21 Range/Units Glucometer 124 H 70-110 MG/DL A/P-Cardiology Admission Diagnosis Spinal Stenosis Chest pain CAD HTN Assessment/Plan Spinal stenosis, slipped disc, status post L2-3 laminectomy done on July 20, 2019, back pain continues to improve. Chest pain, chronic stable angina, no active chest pain today. Continue to monitor Coronary artery disease, history of CABG, multiple intervention the past, recent cardiac catheterization with drug-eluting stent deployment to the vein graft to the diagonal artery, had a patent GRACE to LAD with patent stent beyond the margarito stomosis in the LAD, small vessel disease otherwise done by Dr. Perez in [facility], currently back on Plavix. Continue to monitor Hypertension, continue to monitor blood pressure Sinus bradycardia. Secondary to medication, continue to monitor heart rate Hyperlipidemia, maintained on statin Generalized weakness, lower and upper extremity weakness, cervical spinal steno sis with slipped disc, s/p L 2-[address] Bhatt earlier this morning. Dementia Clinical Quality Measures DVT/VTE Risk/Contraindication: Risk Factor Score Per Nursin RFS Level Per Nursing on Admit: 4+=Very High CHRISTIANO DAVIS MD Jul 29, 2019 15:06
[2019-07-29 18:04] VITALS: BP 129/75
[2019-07-29] MEDS: DONEPEZIL 10 MG (ARICEPT) TAB PO SCH (20:27)
[2019-07-29] MEDS: TERAZOSIN 5 MG (HYTRIN) CAPSULE PO SCH (20:28)
[2019-07-29] MEDS: CYCLOBENZAPRINE 10 MG (FLEXERIL) TAB PO PRN (20:28)
[2019-07-29] MEDS: amLODIPine 10 MG (NORVASC) TAB PO SCH (20:28)
[2019-07-29] MEDS: MELATONIN 3 MG TABLET PO PRN (20:29)
[2019-07-29] MEDS: risperiDONE 0.25 MG (RisperDAL) TAB PO SCH (20:29)
[2019-07-29 20:30] VITALS: BP 113/71
[2019-07-30] MEDS: DEXAMETHASONE 4 MG TAB (DECADRON) PO SCH ×4 (01:14→18:59)
[2019-07-30] MEDS: LACTOBACILLUS ACIDOPHILUS (PROBIOTIC) CAPSULE PO SCH ×3 (06:02→18:59)
[2019-07-30] MEDS: PANTOPRAZOLE 40 MG (PROTONIX) TAB PO SCH (06:02)
[2019-07-30 06:07] VITALS: BP 126/73
[2019-07-30] MEDS: RT-ALBUTEROL/IPRATROPIUM 3 ML (DUONEB) VIAL INH SCH ×4 (06:24→19:58)
[2019-07-30] MEDS: BISACODYL 10 MG SUPP (DULCOLAX) PR SCH ×2 (08:13→20:10)
[2019-07-30] MEDS: POLYETHYLENE GLYCOL 17 GM (MIRALAX) PACK PO SCH ×2 (09:08→21:00)
[2019-07-30] MEDS: SENNA W/DOCUSATE (SENOKOT S) TABLET PO SCH ×2 (09:09→20:54)
[2019-07-30] MEDS: LOSARTAN 50 MG (COZAAR) TAB PO SCH (09:09)
[2019-07-30] MEDS: DOCUSATE CALCIUM 240 MG (SURFAK) CAP PO SCH ×2 (09:09→20:56)
[2019-07-30] MEDS: CARVEDILOL 3.125 MG (COREG) TABLET PO SCH ×2 (09:09→20:54)
[2019-07-30] MEDS: DULoxetine 30 MG (CYMBALTA) CAP PO SCH (09:09)
[2019-07-30] MEDS: LORATADINE (CLARITIN) 10 MG TAB PO SCH (09:09)
[2019-07-30] MEDS: CLOPIDOGREL 75 MG (PLAVIX) TABLET PO SCH (09:09)
[2019-07-30] MEDS: TOLTERODINE LA 4 MG (DETROL) CAP PO SCH (09:09)
--- NOTE | 2019-07-30 11:06 | Physical Therapy Daily Note ---
PT Daily Note-Current Subjective Pt agreeable to PT session with some encouragement required. Pain Numeric Pain Scale: 0-No Pain Comment: report of min pain in R hip with movement Appearance Pt in bed upon arrival, min difficulty arousing, pt is [place]. Pt requested and was assisted with changing brief, using urinal and putting on pajama pants. At end of session, pt sitting up in w/c with call light, phone and bedside table within reach. Mental Status Patient Orientation: Person, Confused, Eyes Open Transfers Therapy Quality Codes: 6 Independent with activity with or without an assistive device 5 Patient requires set up or clean up by helper. Patient completes activity by themselves 4 Supervision or touching assist (CGA). [place] provide cues , steadying assist 3 The helper provides less than half the effort to complete the activity 2 The helper provides more than half the effort to complete the activity 1 Dependent. The helper does all the effort to complete an activity 7 Patient refused to complete or attempt activity 9 The patient did not perform the activity before the current illness or injury 88 Not attempted due to Medical conditions or safety concerns Roll Left to Right (QC): 4 Sit to Lying (QC): 4 Sit to Stand (QC): 2 Chair/Ihm-aq-Wsxos Xfer(QC): 3 sliding board transfer performed from bed to w/c with pt requiring assist with placement of board and mod A during transition. Pt able to follow skilled verb inst for bed mobility and sitting up to EOB, pt only able to follow one step directions at this times Weight Bearing Right Lower Extremity: Right Weight Bearing/Tolerated Left Lower Extremity: Left Weight Bearing/Tolerated Wheelchair Training Does the Pt Use a Wheelchair?: Yes Wheelchair Distance: 1=up to 49 ft Distance: 20 Type of Wheelchair: Manual pt demonstrating ability to maneuver w/c in room with 2 half turns, fwd and retro propulsion with skilled verb inst Treatments bed mobility, transfer training, sitting balance, functional mobility, activity tolerance, w/c mobility, safety, education Assessment Current Status: Fair Progress PT Short Term Goals Short Term Goals Time Frame: Aug 02, 2019 Wheelchair Distance: 100' PT Nursing Home Goals Software Engineer Goals PT Nursing Home Goals Time Frame: Aug 16, 2019 Sit to Lying (QC): 3 (Olu) Lying-Sitting on Side/Bed(QC): 3 (Kofi) Sit to Stand (QC): 1 Roll Left to Right (QC): 3 (Olu) Chair/Bol-al-Fuwby Xfer(QC): 3 (Olu) Car Transfer (QC): 1 Walk 10 feet (QC): 88 Walk 10ft-Uneven Surface(QC): 88 Walk 50ft with 2 Turns (QC): 88 Walk 150 ft (QC): 88 Wheel 50 feet with 2 turns (QC: 5 1 Step (curb) (QC): 88 4 Steps (QC): 88 12 Steps (QC): 88 Picking up an Object (QC): 88 PT Plan Treatment/Plan Treatment Plan: Continue Plan of Care Treatment Plan: Bed Mobility, Concurrent Therapy, Education, Functional Activity Jesus Alberto, Functional Strength, Group Therapy, Gait, Safety, Therapeutic Exercise, Transfers Treatment Duration: Aug 16, 2019 Frequency: At least 5 of 7 days/Wk (IRF) Estimated Hrs Per Day: 1.5 hours per day Patient and/or Family Agrees t: Yes Safety Risks/Education Patient Education: Transfer Techniques, Correct Positioning, W/C Management, Safety Issues Teaching Recipient: Patient Teaching Methods: Demonstration, Discussion Response to Teaching: Verbalize Understanding, Return Demonstration, Reinforcement Needed Time/GCodes Time In: 810 Time Out: 835 Total Billed Treatment Time: 25 Total Billed Treatment 1 visit, FA x25 min MINOR ABDULLAHI FUNERAL DIRECTOR Jul 30, 2019 11:05
--- NOTE | 2019-07-30 11:31 | Cardiology Progress Note ---
Subjective Date Seen by Provider: Jul 30, 2019 Time Seen by Provider: 11:30 Subjective/Events-last exam patient is laying down in bed, complaining of back pain, no chest pain Review of Systems General: No Chills, No Night Sweats, No Fatigue, No Malaise, No Appetite, No Other HEENT: No Head Aches, No Visual Changes, No Eye Pain, No Ear Pain, No Dysphasia, No Sinus Congestion, No Post Nasal Drip, No Sore Throat, No Other Pulmonary: No Dyspnea, No Cough, No Pleuritic Chest Pain, No Other Cardiovascular: No: Chest Pain, Palpitations, Orthopnea, Paroxysmal Noc. Dyspnea, Edema, Lt Headedness, Other Objective-Cardiology Exam Last Set of Vital Signs Vital Signs 07/30/19 07/30/19 06:07 09:59 Temp 36.1 Pulse 62 Resp 18 B/P (MAP) 126/73 (90) Pulse Ox 96 O2 Delivery Room Air Capillary Refill : Less Than 3 Seconds I&O Intake and Output 07/29/19 23:59 Intake Total 1600 ml Output Total 1825 ml Balance -225 ml Intake Oral 1600 ml Output Urine Total 1825 ml General: Alert, Oriented X3, Cooperative, Mild Distress HEENT: Atraumatic, EOMI Neck: Supple, No JVD, No Thyromegaly Lungs: Clear to Auscultation, Normal Air Movement Heart: Regular Rate, Normal S1, Normal S2, No Murmurs Abdomen: Normal Bowel Sounds, Soft, No Tenderness, No Hepatosplenomegaly, No Masses Extremities: No Cyanosis, Normal Pulses Skin: No Rashes, No Breakdown, No Significant Lesion Neuro: Normal Speech, Normal Tone Psych/Mental Status: Mental Status NL A/P-Cardiology Admission Diagnosis Spinal Stenosis Chest pain CAD HTN Assessment/Plan Spinal stenosis, slipped disc, status post L2-3 laminectomy done on July 20, 2019, back pain continues to improve. Chest pain, chronic stable angina, no further episodes of chest pain reported. Continue to monitor Coronary artery disease, history of CABG, multiple intervention the past, recent cardiac catheterization with drug-eluting stent deployment to the vein graft to the diagonal artery, had a patent GRACE to LAD with patent stent beyond the anastomosis in the LAD, small vessel disease otherwise done by Dr. Perez in [facility], currently back on Plavix. Continue to monitor Hypertension, continue to monitor blood pressure Sinus bradycardia. Secondary to medication, continue to monitor heart rate Hyperlipidemia, maintained on statin Generalized weakness, lower and upper extremity weakness, cervical spinal stenosis with slipped disc, s/p L 2-[address] Bhatt earlier this morning. Dementia Clinical Quality Measures DVT/VTE Risk/Contraindication: Risk Factor Score Per Nursin RFS Level Per Nursing on Admit: 4+=Very High CHRISTIANO DAVIS MD Jul 30, 2019 11:31
--- NOTE | 2019-07-30 12:21 | PM&R Progress Note ---
Subjective HPI/CC On Admission Date Seen by Provider: Jul 30, 2019 Time Seen by Provider: 11:00 CC: Cervical spine injury non-traumatic HPI: This is a 78yoWM who presented to the Hospital with significant compromise in function, was found to have significant cervical spine stenosis causing generalized weakness globally, that was complicated with delirium post- operatively in addition to a UTI diagnosis. Pt previously doctored with Dr. Nickolas Danielson and did not see a regular computer graphics illustrator although he has had Bypass surgery and has known CAD. Pt was doing well but had a lengthy acute care course and is in need of significant rehabilitation, prior to returning home. He seems to be very depressed, very tearful when I meet him and reports that he is about to turn 79 next month. I have tried to reassure him and I have put in a behavioral health consult in for him because of obvious tearfulness and overwhelmed feeling and loss of independence that he will need to be aggressively treated for in order to return home safely. Previously he used a walker for the past 6 months prior to admission, had lumbar spine surgery then was discharged home and home PT Collette Ramos evaluated the Pt to have such sev ere weakness that he was total care so he was sent to the ER for workup and from there thing progressed into cervical spine MRI showing severe stenosis and Dr. Bhatt performed surgery with good results but was so severe it was a dural tear during the surgery and he has become quite debilitated. He is urinating well, hasn't had a BM in several days so will need to work on that when he is admitted into the inpatient rehab unit. Overall he will be aggressively treated in order to re-gain his independence in order to return home. Subjective/Events-last exam Pt feels much better. Dressing changes prn per nursing Bowels are being monitored closely and no BM since 07/28/19 BP stable Started antidepressant Thursday Overall very optimistic attitude. Overall participating in all therapies. Checked meds and labs Conferred with RN Reviewed therapy notes Review of Systems General: Fatigue Musculoskeletal: back pain Objective Exam Vital Signs Vital Signs Date Time Temp Pulse Resp B/P (MAP) Pulse Ox O2 Delivery O2 Flow Rate FiO2 07/30/19 19:58 96 Room Air 07/30/19 18:00 36.8 73 18 120/69 (86) Capillary Refill : Less Than 3 Seconds General Appearance: No Apparent Distress, WD/WN, Chronically ill HEENT: PERRL/EOMI, Normal ENT Inspection, Pharynx Normal, Moist Mucous Membranes Neck: Full Range of Motion, Normal Inspection, Non Tender, Supple Respiratory: Lungs Clear, Normal Breath Sounds, No Respiratory Distress Cardiovascular: Regular Rate, Rhythm, No JVD Gastrointestinal: Normal Bowel Sounds, No Organomegaly, No Pulsatile Mass, Non Tender, Soft Back: Normal Inspection, No CVA Tenderness, Decreased Range of Motion Extremity: Normal Capillary Refill, Normal Inspection, Normal Range of Motion, Non Tender, No Calf Tenderness, No Pedal Edema Neurologic/Psychiatric: Alert, Oriented x3, Normal Mood/Affect, hr generalist II-XII Norm as Tested, Motor Weakness (generalized all extremities 3/5) Skin: Normal Color, Warm/Dry Lymphatic: No Adenopathy Results/Procedures Lab Patient resulted labs reviewed. FIM Transfers Therapy Code Descriptions/Definitions Functional [place] Measure: 0=Not Assessed/NA 4=Minimal Assistance 1=Total Assistance 5=Supervision or Setup 2=Maximal Assistance 6=Modified [place] 3=Moderate Assistance 7=Complete [place] Therapy Quality Codes: 6 Independent with activity with or without an assistive device 5 Patient requires set up or clean up by helper. Patient completes activity by themselves 4 Supervision or touching assist (CGA). [place] provide cues , steadying assist 3 The helper provides less than half the effort to complete the activity 2 The helper provides more than half the effort to complete the activity 1 Dependent. The helper does all the effort to complete an activity 7 Patient refused to complete or attempt activity 9 The patient did not perform the activity before the current illness or injury 88 Not attempted due to Medical conditions or safety concerns Transfers (B, C, W/C) (FIM): 3 Roll Left to Right (QC): 4 Sit to Lying (QC): 4 Sit to Stand (QC): 2 Chair/Yfe-uq-Gbgcz Xfer(QC): 3 Bed to/from Chair: 2 Car Transfer (QC): 1 Gait Training Does the Patient Walk?: Yes Gait (FIM): 5 Walk 10 feet (QC): 5 Walk 50 ft with 2 Turns(QC): 5 Walk 150 ft (QC): 5 Walking 10ft/uneven surface-QC: 88 Gait Persons Needed: 1 Gait Assistive Device: FWW Wheelchair Training Does the Pt Use a Wheelchair?: Yes Wheelchair (FIM): 1 Wheelchair Distance: 1=up to 49 ft Distance: 20 Wheel 50 ft with 2 turns (QC): 5 Wheel 150 ft (QC): 1 Type of Wheelchair: Manual ADL-Treatment Eating (QC): 6 Groomin (Pt brushed hair at bed level, he was able to gather hair brush from side table and complete task without assistance.) Oral Hygiene (QC): 6 Bathing Location: L Arm, R Arm, L Upper Leg, R Upper Leg, L Lower Leg (including foot), R Lower Leg (including foot), Chest, Abdomen, Perineal Area Shower/Bathe Self (QC): 1 (Pt educated on using long handled sponge to wash BLE. Pt was able to wash all parts of body except buttocks. Pt required x2 person assist with stand to wash buttocks, on assisting with washing, and one assisting with stand. Pt required mod verbal cues during shower for sequencing o f task, pt washed his hair and then asked OT "now what?", OT had to cue pt on the next step throughout task and cue pt to take deep breaths and take rest breaks as needed.) Upper Body Dressing (QC): 5 (Pt able to doff hospital gown and don pull overshirt with set up assist of shirt.) Lower Body Dressing (QC): 1 (OT assisted pt with doffing brief while seated in shower. Pt was able to thread BLE into pants/underwear using dressing stick as needed. Pt reqired 2 person assist for managing pants/underwear up, one person assisting with clothing & another person assisting with stand.) On/Off Footwear (QC): 2 (OT educated pt on using sock aid to don socks. OT assisted pt with doffing socks, & demo'd use of sock aid. Pt able to don sock on left foot using sock aid, required assistance with right foot secondary to dressing on heel of foot) Toileting Hygiene (QC): 1 (Assist x2, pt stood with PT from [facility] as OT performed hygine and clothing management for pt.) Toilet Transfer (QC): 1 (Pt able to perform SB transfer from EOB to drop arm co mmode with assist for hand placement and assist scooting across SB. Pt required x2 assist for squat pivot transfer from commode to recliner.) Assessment/Plan Assessment and Plan Assess & Plan/Chief Complaint Assessment: Spinal cord trauma from severe stenosis Debility CAD Delirium s/p UTI completed treatment Constipation now resolved 07/28/19 HTN HLP Cognitive deficit SLUMS Depression Plan: Monitor urinary system IRF protocol Increase strength BM regimen to maintain to prevent constipation Start antidepressant Monitor BP (1) Spinal cord injury (2) Generalized Weakness (3) Cervical spinal stenosis Status: Acute (4) Neuroforaminal stenosis of spine Status: Acute (5) Essential (primary) hypertension Status: Chronic (6) Lumbar spinal stenosis Status: Acute (7) Slipped intervertebral disc Status: Acute (8) Delirium Status: Acute (9) Incidental durotomy Status: Acute (10) CAD (coronary artery disease) Status: Chronic YANETH REEDER DO Jul 30, 2019 12:21
[2019-07-30 18:00] VITALS: BP 120/69
[2019-07-30] MEDS: TERAZOSIN 5 MG (HYTRIN) CAPSULE PO SCH (20:54)
[2019-07-30] MEDS: amLODIPine 10 MG (NORVASC) TAB PO SCH (20:54)
[2019-07-30] MEDS: risperiDONE 0.25 MG (RisperDAL) TAB PO SCH (20:54)
[2019-07-30] MEDS: DONEPEZIL 10 MG (ARICEPT) TAB PO SCH (20:54)
[2019-07-30] MEDS: HYDROcodone/APAP 5 MG/325 MG (LORTAB) TAB PO PRN (20:55)
[2019-07-30] MEDS: MELATONIN 3 MG TABLET PO PRN (20:56)
[2019-07-31] MEDS: DEXAMETHASONE 4 MG TAB (DECADRON) PO SCH ×4 (01:50→20:00)
[2019-07-31 05:03] VITALS: BP 107/68
[2019-07-31] MEDS: LACTOBACILLUS ACIDOPHILUS (PROBIOTIC) CAPSULE PO SCH ×3 (05:52→17:12)
[2019-07-31] MEDS: PANTOPRAZOLE 40 MG (PROTONIX) TAB PO SCH (05:52)
[2019-07-31] MEDS: RT-ALBUTEROL/IPRATROPIUM 3 ML (DUONEB) VIAL INH SCH ×4 (07:17→20:08)
[2019-07-31] MEDS: DULoxetine 30 MG (CYMBALTA) CAP PO SCH (09:08)
[2019-07-31] MEDS: LOSARTAN 50 MG (COZAAR) TAB PO SCH (09:08)
[2019-07-31] MEDS: LORATADINE (CLARITIN) 10 MG TAB PO SCH (09:08)
[2019-07-31] MEDS: CARVEDILOL 3.125 MG (COREG) TABLET PO SCH ×2 (09:08→20:01)
[2019-07-31] MEDS: CLOPIDOGREL 75 MG (PLAVIX) TABLET PO SCH (09:08)
[2019-07-31] MEDS: DOCUSATE CALCIUM 240 MG (SURFAK) CAP PO SCH ×2 (09:08→20:02)
[2019-07-31] MEDS: TOLTERODINE LA 4 MG (DETROL) CAP PO SCH (09:08)
[2019-07-31] MEDS: POLYETHYLENE GLYCOL 17 GM (MIRALAX) PACK PO SCH ×2 (09:09→20:02)
[2019-07-31] MEDS: SENNA W/DOCUSATE (SENOKOT S) TABLET PO SCH ×2 (09:09→20:01)
[2019-07-31] MEDS: ASPIRIN E.C. 81 MG (ECOTRIN) TAB PO SCH (09:09)
--- NOTE | 2019-07-31 12:26 | Cardiology Progress Note ---
Subjective Date Seen by Provider: Jul 31, 2019 Time Seen by Provider: 12:25 Subjective/Events-last exam patient is laying down in bed, feeling better. No new complaint Review of Systems General: No Chills, No Night Sweats, No Fatigue, No Malaise, No Appetite, No Other HEENT: No Head Aches, No Visual Changes, No Eye Pain, No Ear Pain, No Dysphasia, No Sinus Congestion, No Post Nasal Drip, No Sore Throat, No Other Pulmonary: No Dyspnea, No Cough, No Pleuritic Chest Pain, No Other Cardiovascular: No: Chest Pain, Palpitations, Orthopnea, Paroxysmal Noc. Dyspnea, Edema, Lt Headedness, Other Objective-Cardiology Exam Last Set of Vital Signs Vital Signs 07/31/19 07/31/19 05:03 10:45 Temp 36.2 Pulse 65 Resp 19 B/P (MAP) 107/68 (81) Pulse Ox 98 O2 Delivery Room Air Capillary Refill : Less Than 3 Seconds I&O Intake and Output 07/31/19 00:00 Intake Total 650 ml Output Total 1100 ml Balance -450 ml Intake Oral 650 ml Output Urine Total 1100 ml General: Alert, Oriented X3, Cooperative, Mild Distress HEENT: Atraumatic, EOMI Neck: Supple, No JVD, No Thyromegaly Lungs: Clear to Auscultation, Normal Air Movement Heart: Regular Rate, Normal S1, Normal S2, No Murmurs Abdomen: Normal Bowel Sounds, Soft, No Tenderness, No Hepatosplenomegaly, No Masses Extremities: No Cyanosis, Normal Pulses Skin: No Rashes, No Breakdown, No Significant Lesion Neuro: Normal Speech, Normal Tone Psych/Mental Status: Mental Status NL A/P-Cardiology Admission Diagnosis Spinal Stenosis Chest pain CAD HTN Assessment/Plan Spinal stenosis, slipped disc, status post L2-3 laminectomy done on July 20, 2019, back pain continues to improve. Chest pain, chronic stable angina, no further episodes of chest pain reported. Continue to monitor Coronary artery disease, history of CABG, multiple intervention the past, recent cardiac catheterization with drug-eluting stent deployment to the vein graft to the diagonal artery, had a patent GRACE to LAD with patent stent beyond the anastomosis in the LAD, small vessel disease otherwise done by Dr. Perez in [facility], currently back on Plavix. Continue to monitor Hypertension, continue to monitor blood pressure Sinus bradycardia. Secondary to medication, continue to monitor heart rate Hyperlipidemia, maintained on statin Generalized weakness, lower and upper extremity weakness, cervical spinal stenosis with slipped disc, s/p L 2-[address] Bhatt earlier this morning. Dementia Clinical Quality Measures DVT/VTE Risk/Contraindication: Risk Factor Score Per Nursin RFS Level Per Nursing on Admit: 4+=Very High CHRISTIANO DAVIS MD Jul 31, 2019 12:26
--- NOTE | 2019-07-31 12:34 | PM&R Progress Note ---
Subjective HPI/CC On Admission Date Seen by Provider: Jul 31, 2019 Time Seen by Provider: 11:30 CC: Cervical spine injury non-traumatic HPI: This is a 78yoWM who presented to the Hospital with significant compromise in function, was found to have significant cervical spine stenosis causing generalized weakness globally, that was complicated with delirium post- operatively in addition to a UTI diagnosis. Pt previously doctored with Dr. 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 Pt was doing well but had a lengthy acute care course and is in need of significant rehabilitation, prior to returning home. He seems to be very depressed, very tearful when I meet him and reports that he is about to turn 79 next month. I have tried to reassure him and I have put in a behavioral health consult in for him because of obvious tearfulness and overwhelmed feeling and loss of independence that he will need to be aggressively treated for in order to return home safely. Previously he used a walker for the past 6 months prior to admission, had lumbar spine surgery then was discharged home and home PT Collette Ramos evaluated the Pt to have such sev ere weakness that he was total care so he was sent to the ER for workup and from there thing progressed into cervical spine MRI showing severe stenosis and Dr. Bhatt performed surgery with good results but was so severe it was a dural tear during the surgery and he has become quite debilitated. He is urinating well, hasn't had a BM in several days so will need to work on that when he is admitted into the inpatient rehab unit. Overall he will be aggressively treated in order to re-gain his independence in order to return home. Subjective/Events-last exam Had a shower today and up and around Discontinued Hep-Lock since it was coming out Will give suppository today to get bowels moving Was able to give all oral meds yesterday since blood pressure is maintained stability Dr. Bhatt will check incision today Check meds and labs Reviewed therapy notes Conferred with efficiency manager of Systems Musculoskeletal: back pain Neurological: Weakness, Numbness, Incoordination Objective Exam Vital Signs Vital Signs Date Time Temp Pulse Resp B/P (MAP) Pulse Ox O2 Delivery O2 Flow Rate FiO2 07/31/19 14:39 95 Room Air 07/31/19 05:03 36.2 65 19 107/68 (81) Capillary Refill : Less Than 3 Seconds General Appearance: No Apparent Distress, WD/WN, Chronically ill HEENT: PERRL/EOMI, Normal ENT Inspection, Pharynx Normal, Moist Mucous Membranes Neck: Full Range of Motion, Normal Inspection, Non Tender, Supple Respiratory: Lungs Clear, Normal Breath Sounds, No Respiratory Distress Cardiovascular: Regular Rate, Rhythm, No JVD Gastrointestinal: Normal Bowel Sounds, No Organomegaly, No Pulsatile Mass, Non Tender, Soft Back: Normal Inspection, No CVA Tenderness, Decreased Range of Motion Extremity: Normal Capillary Refill, Normal Inspection, Normal Range of Motion, Non Tender, No Calf Tenderness, No Pedal Edema Neurologic/Psychiatric: Alert, Oriented x3, Normal Mood/Affect, clinical pharmacist II-XII Norm as Tested, Motor Weakness (generalized all extremities 3/5) Skin: Normal Color, Warm/Dry Lymphatic: No Adenopathy Results/Procedures Lab Patient resulted labs reviewed. FIM Transfers Therapy Code Descriptions/Definitions Functional [place] Measure: 0=Not Assessed/NA 4=Minimal Assistance 1=Total Assistance 5=Supervision or Setup 2=Maximal Assistance 6=Modified [place] 3=Moderate Assistance 7=Complete [place] Therapy Quality Codes: 6 Independent with activity with or without an assistive device 5 Patient requires set up or clean up by helper. Patient completes activity by themselves 4 Supervision or touching assist (CGA). [place] provide cues , steadying assist 3 The helper provides less than half the effort to complete the activity 2 The helper provides more than half the effort to complete the activity 1 Dependent. The helper does all the effort to complete an activity 7 Patient refused to complete or attempt activity 9 The patient did not perform the activity before the current illness or injury 88 Not attempted due to Medical conditions or safety concerns Transfers (B, C, W/C) (FIM): 3 Roll Left to Right (QC): 4 Sit to Lying (QC): 4 Sit to Stand (QC): 2 Chair/Ejs-ea-Mjgsz Xfer(QC): 3 Bed to/from Chair: 2 Car Transfer (QC): 1 Gait Training Does the Patient Walk?: Yes Gait (FIM): 5 Walk 10 feet (QC): 5 Walk 50 ft with 2 Turns(QC): 5 Walk 150 ft (QC): 5 Walking 10ft/uneven surface-QC: 88 Gait Persons Needed: 1 Gait Assistive Device: FWW Wheelchair Training Does the Pt Use a Wheelchair?: Yes Wheelchair (FIM): 1 Wheelchair Distance: 1=up to 49 ft Distance: 20 Wheel 50 ft with 2 turns (QC): 5 Wheel 150 ft (QC): 1 Type of Wheelchair: Manual ADL-Treatment Eating (QC): 6 Groomin (Pt brushed hair at bed level, he was able to gather hair brush from side table and complete task without assistance.) Oral Hygiene (QC): 6 Bathing Location: L Arm, R Arm, L Upper Leg, R Upper Leg, L Lower Leg (including foot), R Lower Leg (including foot), Chest, Abdomen, Perineal Area Shower/Bathe Self (QC): 1 (Pt educated on using long handled sponge to wash BLE. Pt was able to wash all parts of body except buttocks. Pt required x2 person assist with stand to wash buttocks, on assisting with washing, and one assisting with stand. Pt required mod verbal cues during shower for sequencing of task, pt washed his hair and then asked OT "now what?", OT had to cue pt on the next step throughout task and cue pt to take deep breaths and take rest breaks as needed.) Upper Body Dressing (QC): 5 (Pt able to doff hospital gown and don pull overshirt with set up assist of shirt.) Lower Body Dressing (QC): 1 (OT assisted pt with doffing brief while seated in shower. Pt was able to thread BLE into pants/underwear using dressing stick as needed. Pt reqired 2 person assist for managing pants/underwear up, one person assisting with clothing & another person assisting with stand.) On/Off Footwear (QC): 2 (OT educated pt on using sock aid to don socks. OT assisted pt with doffing socks, & demo'd use of sock aid. Pt able to don sock on left foot using sock aid, required assistance with right foot secondary to dressing on heel of foot) Toileting Hygiene (QC): 1 (Assist x2, pt stood with PT from [facility] as OT performed hygine and clothing management for pt.) Toilet Transfer (QC): 1 (Pt able to perform SB transfer from EOB to drop arm commode with assist for hand placement and assist scooting across SB. Pt r equired x2 assist for squat pivot transfer from commode to recliner.) Assessment/Plan Assessment and Plan Assess & Plan/Chief Complaint Assessment: Spinal cord trauma from severe stenosis Debility CAD Delirium s/p UTI completed treatment Constipation now resolved 07/28/19 HTN HLP Cognitive deficit SLUMS Depression Plan: Monitor urinary system IRF protocol Increase strength BM regimen to maintain to prevent constipation Start antidepressant Monitor BP (1) Spinal cord injury (2) Generalized Weakness (3) Cervical spinal stenosis Status: Acute (4) Neuroforaminal stenosis of spine Status: Acute (5) Essential (primary) hypertension Status: Chronic (6) Lumbar spinal stenosis Status: Acute (7) Slipped intervertebral disc Status: Acute (8) Delirium Status: Acute (9) Incidental durotomy Status: Acute (10) CAD (coronary artery disease) Status: Chronic YANETH REEDER DO Jul 31, 2019 12:34
[2019-07-31] MEDS: BISACODYL 10 MG SUPP (DULCOLAX) PR SCH ×2 (17:12→21:22)
[2019-07-31 18:04] VITALS: BP 111/68
[2019-07-31] MEDS: risperiDONE 0.25 MG (RisperDAL) TAB PO SCH (20:01)
[2019-07-31] MEDS: amLODIPine 10 MG (NORVASC) TAB PO SCH (20:01)
[2019-07-31] MEDS: TERAZOSIN 5 MG (HYTRIN) CAPSULE PO SCH (20:01)
[2019-07-31] MEDS: MELATONIN 3 MG TABLET PO PRN (20:02)
[2019-07-31] MEDS: DONEPEZIL 10 MG (ARICEPT) TAB PO SCH (20:02)
[2019-08-01] MEDS: DEXAMETHASONE 4 MG TAB (DECADRON) PO SCH ×2 (01:28→06:26)
[2019-08-01 05:15] VITALS: BP 118/76
[2019-08-01 06:22] LABS: BASOPHILS % (AUTO) 0 % (0-10); EOSINOPHILS % (AUTO) 0 % (0-10); HEMATOCRIT 41 % (40-54); HEMOGLOBIN 14.1 G/DL (13.3-17.7); LYMPHOCYTES # (AUTO) 0.7 X 10^3 (1.0-4.0); LYMPHOCYTES % (AUTO) 5 % (12-44); MEAN CORPUSCULAR HEMOGLOBIN 31 PG (25-34); MEAN CORPUSCULAR HGB CONC 34 G/DL (32-36); MEAN CORPUSCULAR VOLUME 90 FL (80-99); MEAN PLATELET VOLUME 9.8 FL (7.4-10.4); MONOCYTES # (AUTO) 0.8 X 10^3 (0.0-1.0); MONOCYTES % (AUTO) 5 % (0-12); NEUTROPHILS # (AUTO) 14.2 X 10^3 (1.8-7.8); NEUTROPHILS % (AUTO) 90 % (42-75); PLATELET COUNT 298 10^3/uL (130-400); RED CELL DISTRIBUTION WIDTH 13.7 % (10.0-14.5); WHITE BLOOD COUNT 15.8 10^3/uL (4.3-11.0)
[2019-08-01] MEDS: PANTOPRAZOLE 40 MG (PROTONIX) TAB PO SCH (06:26)
[2019-08-01] MEDS: LACTOBACILLUS ACIDOPHILUS (PROBIOTIC) CAPSULE PO SCH ×3 (06:26→16:58)
[2019-08-01 06:44] LABS: ALANINE AMINOTRANSFERASE 25 U/L (0-55); ALBUMIN 3.4 GM/DL (3.2-4.5); ALKALINE PHOSPHATASE 69 U/L (40-136); BILIRUBIN,TOTAL 0.7 MG/DL (0.1-1.0); BUN/CREATININE RATIO 33; CALCIUM 8.2 MG/DL (8.5-10.1); CARBON DIOXIDE 22 MMOL/L (21-32); CHLORIDE 106 MMOL/L (98-107); CREATININE SERUM 0.81 MG/DL (0.60-1.30); GFR ESTIMATED > 60; GLUCOSE 119 MG/DL (70-105); POTASSIUM 3.8 MMOL/L (3.6-5.0); SODIUM 137 MMOL/L (135-145); TOTAL PROTEIN 5.8 GM/DL (6.4-8.2)
[2019-08-01 06:46] LABS: BAND NEUTROPHILS 4 %; LYMPHOCYTES % (MANUAL) 3 %; MONOCYTES % (MANUAL) 5 %; NEUTROPHILS % (MANUAL) 88 %; RBC MORPH NORMAL
[2019-08-01] MEDS: RT-ALBUTEROL/IPRATROPIUM 3 ML (DUONEB) VIAL INH SCH ×4 (06:58→19:18)
[2019-08-01] MEDS: SENNA W/DOCUSATE (SENOKOT S) TABLET PO SCH ×2 (07:47→20:19)
[2019-08-01] MEDS: DOCUSATE CALCIUM 240 MG (SURFAK) CAP PO SCH ×2 (07:47→20:19)
[2019-08-01] MEDS: POLYETHYLENE GLYCOL 17 GM (MIRALAX) PACK PO SCH ×2 (07:47→20:18)
[2019-08-01] MEDS: BISACODYL 10 MG SUPP (DULCOLAX) PR SCH ×2 (07:47→20:44)
--- NOTE | 2019-08-01 08:11 | PM&R Progress Note ---
Subjective HPI/CC On Admission Date Seen by Provider: Aug 01, 2019 Time Seen by Provider: 08:30 CC: Cervical spine injury non-traumatic HPI: This is a 78yoWM who presented to the Hospital with significant compromise in function, was found to have significant cervical spine stenosis causing generalized weakness globally, that was complicated with delirium post- operatively in addition to a UTI diagnosis. Pt previously doctored with Dr. Tyler Danielson and did not see a regular director oracle although he has had Bypass surgery and has known CAD. Pt was doing well but had a lengthy acute care course and is in need of significant rehabilitation, prior to returning home. He seems to be very depressed, very tearful when I meet him and reports that he is about to turn 79 next month. I have tried to reassure him and I have put in a behavioral health consult in for him because of obvious tearfulness and overwhelmed feeling and loss of independence that he will need to be aggressively treated for in order to return home safely. Previously he used a walker for the past 6 months prior to admission, had lumbar spine surgery then was discharged home and home PT Collette Ramos evaluated the Pt to have such severe weakness that he was total care so he was sent to the ER for workup and from there thing progressed into cervical spine MRI showing severe stenosis and Dr. Bhatt performed surgery with good results but was so severe it was a dural tear during the surgery and he has become quite debilitated. He is urinating well, hasn't had a BM in several days so will need to work on that when he is admitted into the inpatient rehab unit. Overall he will be aggressively treated in order to re-gain his independence in order to return home. Subjective/Events-last exam Dr. Bhatt approved of Decadron discontinuation Wound appears to be healing Denies any significant t new issues WBC is 15 but the rest of labs are normal No Fever Urinating well Bowel regimen maintained due to acute on chronic constipating Check meds and labs Reviewed therapy notes Conferred with juice mixer of Systems General: Fatigue Musculoskeletal: back pain Objective Exam Vital Signs Vital Signs Date Time Temp Pulse Resp B/P (MAP) Pulse Ox O2 Delivery O2 Flow Rate FiO2 08/01/19 20:30 84 93/57 (69) 08/01/19 19:19 95 Room Air 08/01/19 17:36 36.8 18 Capillary Refill : Less Than 3 Seconds General Appearance: No Apparent Distress, WD/WN, Chronically ill HEENT: PERRL/EOMI, Normal ENT Inspection, Pharynx Normal, Moist Mucous Membranes Neck: Full Range of Motion, Normal Inspection, Non Tender, Supple Respiratory: Lungs Clear, Normal Breath Sounds, No Respiratory Distress Cardiovascular: Regular Rate, Rhythm, No JVD Gastrointestinal: Normal Bowel Sounds, No Organomegaly, No Pulsatile Mass, Non Tender, Soft Back: Normal Inspection, No CVA Tenderness, Decreased Range of Motion Extremity: Normal Capillary Refill, Normal Inspection, Normal Range of Motion, Non Tender, No Calf Tenderness, No Pedal Edema Neurologic/Psychiatric: Alert, Oriented x3, Normal Mood/Affect, rn women services II-XII Norm as Tested, Motor Weakness (generalized all extremities 3/5) Skin: Normal Color, Warm/Dry Lymphatic: No Adenopathy Results/Procedures Lab Laboratory Tests 08/01/19 05:13 08/01/19 05:23 Patient resulted labs reviewed. FIM Transfers Therapy Code Descriptions/Definitions Functional [place] Measure: 0=Not Assessed/NA 4=Minimal Assistance 1=Total Assistance 5=Supervision or Setup 2=Maximal Assistance 6=Modified [place] 3=Moderate Assistance 7=Complete [place] Therapy Quality Codes: 6 Independent with activity with or without an assistive device 5 Patient requires set up or clean up by helper. Patient completes activity by themselves 4 Supervision or touching assist (CGA). [place] provide cues , steadying assist 3 The helper provides less than half the effort to complete the activity 2 The helper provides more than half the effort to complete the activity 1 Dependent. The helper does all the effort to complete an activity 7 Patient refused to complete or attempt activity 9 The patient did not perform the activity before the current illness or injury 88 Not attempted due to Medical conditions or safety concerns Transfers (B, C, W/C) (FIM): 3 Roll Left to Right (QC): 4 Sit to Lying (QC): 4 Sit to Stand (QC): 2 Chair/Mlb-ff-Msgzm Xfer(QC): 3 Bed to/from Chair: 2 Car Transfer (QC): 1 Gait Training Does the Patient Walk?: Yes Gait (FIM): 5 Walk 10 feet (QC): 5 Walk 50 ft with 2 Turns(QC): 5 Walk 150 ft (QC): 5 Walking 10ft/uneven surface-QC: 88 Gait Persons Needed: 1 Gait Assistive Device: FWW Wheelchair Training Does the Pt Use a Wheelchair?: Yes Wheelchair (FIM): 1 Wheelchair Distance: 1=up to 49 ft Distance: 20 Wheel 50 ft with 2 turns (QC): 5 Wheel 150 ft (QC): 1 Type of Wheelchair: Manual ADL-Treatment Eating (QC): 6 Groomin (Pt brushed hair at bed level, he was able to gather hair brush from side table and complete task without assistance.) Oral Hygiene (QC): 6 Bathing Location: L Arm, R Arm, L Upper Leg, R Upper Leg, L Lower Leg (including foot), R Lower Leg (including foot), Chest, Abdomen, Perineal Area Shower/Bathe Self (QC): 1 (Pt educated on using long handled sponge to wash BLE. Pt was able to wash all parts of body except buttocks. Pt required x2 person assist with stand to wash buttocks, on assisting with washing, and one assisting with stand. Pt required mod verbal cues during shower for sequencing of task, pt washed his hair and then asked OT "now what?", OT had to cue pt on the next step throughout task and cue pt to take deep breaths and take rest cristhian aks as needed.) Upper Body Dressing (QC): 5 (Pt able to doff hospital gown and don pull overshirt with set up assist of shirt.) Lower Body Dressing (QC): 1 (OT assisted pt with doffing brief while seated in shower. Pt was able to thread BLE into pants/underwear using dressing stick as needed. Pt reqired 2 person assist for managing pants/underwear up, one person assisting with clothing & another person assisting with stand.) On/Off Footwear (QC): 2 (OT educated pt on using sock aid to don socks. OT assisted pt with doffing socks, & demo'd use of sock aid. Pt able to don sock on left foot using sock aid, required assistance with right foot secondary to dressing on heel of foot) Toileting Hygiene (QC): 1 (Assist x2, pt stood with PT from [facility] as OT performed hygine and clothing management for pt.) Toilet Transfer (QC): 1 (Pt able to perform SB transfer from EOB to drop arm commode with assist for hand placement and assist scooting across SB. Pt required x2 assist for squat pivot transfer from commode to recliner.) Assessment/Plan Assessment and Plan Assess & Plan/Chief Complaint Assessment: Spinal cord trauma from severe stenosis Debility CAD Delirium s/p UTI completed treatment Constipation now resolved 07/28/19 HTN HLP Cognitive deficit SLUMS Depression Plan: Monitor urinary system IRF protocol Increase strength BM regimen to maintain to prevent constipation Start antidepressant Monitor BP DC Decadron (1) Spinal cord injury (2) Generalized Weakness (3) Cervical spinal stenosis Status: Acute (4) Neuroforaminal stenosis of spine Status: Acute (5) Essential (primary) hypertension Status: Chronic (6) Lumbar spinal stenosis Status: Acute (7) Slipped intervertebral disc Status: Acute (8) Delirium Status: Acute (9) Incidental durotomy Status: Acute (10) CAD (coronary artery disease) Status: Chronic YANETH REEDER DO Aug 01, 2019 08:11
--- NOTE | 2019-08-01 08:32 | Cardiology Progress Note ---
Subjective Date Seen by Provider: Aug 01, 2019 Time Seen by Provider: 08:31 Subjective/Events-last exam Patient is sitting up in wheelchair, no new complaints. Denies any chest pain or dyspnea. Review of Systems General: No Chills, No Night Sweats, No Fatigue, No Malaise, No Appetite, No Ot her HEENT: No Head Aches, No Visual Changes, No Eye Pain, No Ear Pain, No Dysp hasia, No Sinus Congestion, No Post Nasal Drip, No Sore Throat, No Other Pulmonary: No Dyspnea, No Cough, No Pleuritic Chest Pain, No Other Cardiovascular: No: Chest Pain, Palpitations, Orthopnea, Paroxysmal Noc. Dyspnea, Edema, Lt Headedness, Other Objective-Cardiology Exam Last Set of Vital Signs Vital Signs 08/01/19 05:15 Temp 36.5 Pulse 68 Resp 16 B/P (MAP) 118/76 (90) Pulse Ox 97 O2 Delivery Room Air Capillary Refill : Less Than 3 Seconds I&O Intake and Output 08/01/19 00:00 Intake Total 850 ml Output Total 950 ml Balance -100 ml Intake Oral 850 ml Output Urine Total 950 ml # Voids 1 General: Alert, Oriented X3, Cooperative, Mild Distress HEENT: Atraumatic, EOMI Neck: Supple, No JVD, No Thyromegaly Lungs: Clear to Auscultation, Normal Air Movement Heart: Regular Rate, Normal S1, Normal S2, No Murmurs Abdomen: Normal Bowel Sounds, Soft, No Tenderness, No Hepatosplenomegaly, No Masses Extremities: No Cyanosis, Normal Pulses Skin: No Rashes, No Breakdown, No Significant Lesion Neuro: Normal Speech, Normal Tone Psych/Mental Status: Mental Status NL Results Lab Laboratory Tests 08/01/19 05:13 08/01/19 05:23 A/P-Cardiology Admission Diagnosis Spinal Stenosis Chest pain CAD HTN Assessment/Plan Spinal stenosis, slipped disc, status post L2-3 laminectomy done on July 20, 2019, back pain continues to improve. Chest pain, chronic stable angina, no further episodes of chest pain reported. Continue to monitor Coronary artery disease, history of CABG, multiple intervention the past, recent cardiac catheterization with drug-eluting stent deployment to the vein graft to the diagonal artery, had a patent GRACE to LAD with patent stent beyond the anastomosis in the LAD, small vessel disease otherwise done by Dr. Perez in [facility], currently back on Plavix. Continue to monitor Hypertension, continue to monitor blood pressure Sinus bradycardia. Secondary to medication, continue to monitor heart rate Hyperlipidemia, maintained on statin Generalized weakness, lower and upper extremity weakness, cervical spinal judi nosis with slipped disc, s/p L 2-[address] Bhatt earlier this morning. Dementia Patient was seen and evaluated with Jill, examination performed, management plan was discussed, agree with the current scribed note, I made few changes to the note using Italic font On examination lungs were clear, heart is regular, no chest pain was reported. Continue on current medications and monitor Clinical Quality Measures DVT/VTE Risk/Contraindication: Risk Factor Score Per Nursin RFS Level Per Nursing on Admit: 4+=Very High Supervisory-Addendum Brief Supervisory Addendum Participated in pt care: history, MDM, physical Personally performed: exam, history, MDM Care discussed with: JILL BRICE Aug 01, 2019 8:31 am CHRISTIANO DAVIS MD Aug 01, 2019 9:21 am
--- NOTE | 2019-08-01 09:16 | Physical Therapy Daily Note ---
PT Daily Note-Current Subjective Pt. agrees to Rx. States he is not sure if he is better or not. Shares that his grandson is who he would stay with when he DCs. States his grandson has a ramp but it is in disrepair. States no one is at his grandsons during the day and he is unsure about DC plans Pain Location: No Pain Reported Mental Status Patient Orientation: Normal For Age Transfers Therapy Quality Codes: 6 Independent with activity with or without an assistive device 5 Patient requires set up or clean up by helper. Patient completes activity by themselves 4 Supervision or touching assist (CGA). [place] provide cues , steadying assist 3 The helper provides less than half the effort to complete the activity 2 The helper provides more than half the effort to complete the activity 1 Dependent. The helper does all the effort to complete an activity 7 Patient refused to complete or attempt activity 9 The patient did not perform the activity before the current illness or injury 88 Not attempted due to Medical conditions or safety concerns Transfers (B, C, W/C): 2 Roll Left to Right (QC): 4 Sit to Lying (QC): 4 Sit to Stand (QC): 2 Chair/Tzp-ou-Lnqyt Xfer(QC): 3 sld brd requires mod to min assist, sit to stand requires max assist 2 Weight Bearing Right Lower Extremity: Right Weight Bearing/Tolerated Left Lower Extremity: Left Weight Bearing/Tolerated Gait Training Does the Patient Walk?: No and Walking Goal NOT indicated Wheelchair Training Does the Pt Use a Wheelchair?: Yes Wheelchair Distance: 9=968-13 ft (50ftx2, 25ftx4) Wheel 50 ft with 2 turns (QC): 5 Type of Wheelchair: Manual to ramp for descending and ascending ramp 15 to 20 ft with fatigue c/o and noted min SOB. fig 8 and narrow area forward and backward w/c skills. Pt. needs skilled verbal instruction as well as demonstration and explanation Exercises Seated Therapy Exercises: Ankle pumps, Long arc quads (with assist right ), Chair press-ups, Hip flexion (assist right), Hip abd/add Seated Reps: 12 (x2) Treatments extensive co Rx work on w/c skills on ramp , out of doors, over threshholds , managing brakes on ramp, forward, backward and in tight indoor spaces. sit to stand max assist of [address] with then allows for easier sit to stand for pt. and caregivers. Pt. also then able to perform arm chair push ups and use LEs , gluts as well as UEs with good leverage Assessment Current Status: Good Progress pt. gives good effort. Pt. will likely need ramp and FT care/supervision at [place]. Pt. is thinking some of his options through as he a and hopes to utilize some benefits PT Short Term Goals Short Term Goals Time Frame: Aug 02, 2019 Wheelchair Distance: 20 PT Wrister Goals Wrister Goals PT Long-Term Goals Time Frame: Aug 16, 2019 Sit to Lying (QC): 3 (Olu) Lying-Sitting on Side/Bed(QC): 3 (Kofi) Sit to Stand (QC): 1 Roll Left to Right (QC): 3 (Olu) Chair/Req-tx-[place] Xfer(QC): 3 (Olu) Car Transfer (QC): 1 Walk 10 feet (QC): 88 Walk 10ft-Uneven Surface(QC): 88 Walk 50ft with 2 Turns (QC): 88 Walk 150 ft (QC): 88 Wheel 50 feet with 2 turns (QC: 5 1 Step (curb) (QC): 88 4 Steps (QC): 88 12 Steps (QC): 88 Picking up an Object (QC): 88 PT Plan Treatment/Plan Treatment Plan: Continue Plan of Care Treatment Plan: Bed Mobility, Concurrent Therapy, Education, Functional Activity Jesus Alberto, Functional Strength, Group Therapy, Gait, Safety, Therapeutic Exercise, Transfers Treatment Duration: Aug 16, 2019 Frequency: At least 5 of 7 days/Wk (IRF) Estimated Hrs Per Day: 1.5 hours per day Patient and/or Family Agrees t: Yes Safety Risks/Education Patient Education: Transfer Techniques, Correct Positioning, W/C Management, Disease Process, Safety Issues Teaching Recipient: Patient Teaching Methods: Demonstration, Discussion Response to Teaching: Verbalize Understanding, Return Demonstration, Reinforcement Needed Time/GCodes Time In: 815 Time Out: 915 Total Billed Treatment Time: 60 Total Billed Treatment 1,WCH25m,FA15m,EX20m DEA PEÑALOZA CONCRETE SMOOTHER Aug 01, 2019 09:16
--- NOTE | 2019-08-01 09:26 | Occupational Ther Daily Note ---
OT Current Status-Daily Note Subjective Pt laying in bed at start of OT session, agreeable to tx. Pt did not verbalize pain rating this AM, stated his pain is doing better. Mental Status/Objective Therapy Code Descriptions/Definitions Functional [place] Measure: 0=Not Assessed/NA 4=Minimal Assistance 1=Total Assistance 5=Supervision or Setup 2=Maximal Assistance 6=Modified [place] 3=Moderate Assistance 7=Complete [place] ADL-Treatment Therapy Code Descriptions/Definitions Functional [place] Measure: 0=Not Assessed/NA 4=Minimal Assistance 1=Total Assistance 5=Supervision or Setup 2=Maximal Assistance 6=Modified [place] 3=Moderate Assistance 7=Complete [place] Therapy Quality Codes: 6 Independent with activity with or without an assistive device 5 Patient requires set up or clean up by helper. Patient completes activity by themselves 4 Supervision or touching assist (CGA). [place] provide cues , steadying assist 3 The helper provides less than half the effort to complete the activity 2 The helper provides more than half the effort to complete the activity 1 Dependent. The helper does all the effort to complete an activity 7 Patient refused to complete or attempt activity 9 The patient did not perform the activity before the current illness or injury 88 Not attempted due to Medical conditions or safety concerns Oral Hygiene (QC): 6 (Pt washed dentures and put them in seated at sink in w/c.) Lower Body Dressing (QC): 3 (Pt able to thread BLE into pant legs, pt attempted stand with OT but pt was unable to complete safe stand. Pt able to manage pants up laying in bed, rolling side to side.) Other Treatment Pt laying in bed at start of session, sat EOB for lower body dressing. Pt able to manage pants up by laying in bed and rolling. Pt then used SB to transfer from bed to w/c, OT assisted pt with placement of board and then pt able to complete transfer. Pt managed w/c into bathroom to sink where he completed oral hygiene, face washing, and brushing hair. He then was able to self-propel w/c to bedside table to gather his hearing aides and put them in. OT co-treat with PT secondary to decline in overall function requiring the skill of 2 disciplines that a rehabilitation team lead could not perform. OT focused on hand placement, sequencing, and cueing during tasks while PT focused on LE placement and overall gross movement. Pt performed w/c management figure 8 around obstacles, and propelled w/c forward and backward through a narrow space in order for pt to be more independent with functional activities at home. Pt taken to ramp where pt was able to propel w/c using UE down/up ramp, over threshold, and on sidewalk outside. Pt required cues throughout task to lock breaks each time he stopped, and cues as he went through doors to watch where his hands are placed. Pt returned to rehab area where he completed x20 reps of each of the following: shoulder flexion, elbow extension/flexion, wrist flexion/extension, and forearm pronation/supination. Pt stood at parallel bars with assist x2 in order for cushion to be placed in w/c. Post OT session, pt with PT all needs met. Education OT Patient Education: Correct positioning, Energy conservation, Exercise program, Modified ADL techniques, Progress toward Goal/Update tx plan, Purpose of tx/functional activities, Transfer techniques, W/C management Teaching Recipient: Patient Teaching Methods: Demonstration Response to Teaching: Verbalize Understanding OT Short Term Goals Short Term Goals Lower Body Dressing(FIM): 3 Toilet/Commode Transfer(FIM): 3 Additional Short Term Goals: 1-Demonstrate ADL Tasks, 2-Verbalize Understanding, 3-ImproveStrength/Jesus Alberto 1=Demonstrate adherence to instructed precautions during ADL tasks. 2=Patient will verbalize/demonstrate understanding of assistive devices/modifications for ADL. 3=Patient will improve strength/tolerance for activity to enable patient to perform ADL's. OT Flyer Maker Goals Longterm Goals Eating (QC): 6 Oral Hygiene (QC): 6 Shower/Bathe Self (QC): 6 Upper Body Dressing (QC): 6 Lower Body Dressing (QC): 5 On/Off Footwear (QC): 6 Toileting Hygiene (QC): 5 Toilet/Commode Transfer (QC): 5 Additional Goals: 1-Demonstrate ADL Tasks, 2-Verbalize Understanding, 3-Improv eStrength/Jesus Alberto 1=Demonstrate adherence to instructed precautions during ADL tasks. 2=Patient will verbalize/demonstrate understanding of assistive devices/modifications for ADL. 3=Patient will improve strength/tolerance for activity to enable patient to p erform ADL's. OT Education/Plan Problem List/Assessment Assessment: Decreased Activ Tolerance, Decreased UE Strength, Impaired Funct Balance, Impaired I ADL's, Impaired Self-Care Skills Discharge Recommendations Plan/Recommendations: Continue POC Treatment Plan/Plan of Care Treatment,Training & Education: Yes Patient would benefit from OT for education, treatment and training to promote independence in ADL's, mobility, safety and/or upper extremity function for ADL's. Plan of Care: ADL Retraining, Caregiver Training, Concurrent Therapy, Functional Mobility, Group Exercise/Act as Ind, UE Funct Exercise/Act Treatment Duration: Jul 27, 2019 Frequency: At least 5 of 7 days/Wk (IRF) Estimated Hrs Per Day: 1.5 hours per day Agreement: Yes Rehab Potential: Fair Time/GCodes Start Time: 08:00 Stop Time: 09:00 Total Time Billed (hr/min): 60 Billed Treatment Time (Cotx with pt [id number]) 1, ADL x15min, FA 2 x30min, EX x15min RACHID GONZALES OT Aug 01, 2019 09:26
[2019-08-01] MEDS: CARVEDILOL 3.125 MG (COREG) TABLET PO SCH ×2 (09:51→20:43)
[2019-08-01] MEDS: LOSARTAN 50 MG (COZAAR) TAB PO SCH (09:51)
[2019-08-01] MEDS: CLOPIDOGREL 75 MG (PLAVIX) TABLET PO SCH (09:51)
[2019-08-01] MEDS: DULoxetine 30 MG (CYMBALTA) CAP PO SCH (09:51)
[2019-08-01] MEDS: TOLTERODINE LA 4 MG (DETROL) CAP PO SCH (09:51)
[2019-08-01] MEDS: LORATADINE (CLARITIN) 10 MG TAB PO SCH (09:51)
[2019-08-01] MEDS: ASPIRIN E.C. 81 MG (ECOTRIN) TAB PO SCH (09:51)
[2019-08-01] MEDS: HYDROcodone/APAP 5 MG/325 MG (LORTAB) TAB PO PRN ×2 (09:51→16:58)
--- NOTE | 2019-08-01 10:24 | Speech Therapy Daily Note ---
Speech Daily Progress Note Subjective Date Seen by Provider: Aug 01, 2019 Time Seen by Provider: 00:30 Patient was resting in his wheelchair when I entered his room. He reported how well he did with standing up today. Objective Patient completed a series of safety awareness tasks using scenario cards at 90% with 10% verbal cues. Assessment Assessment Current Status: Good Progress Speech Short Term Goals Short Term Goals Short Term Goals 1) Patient will complete memory tasks related to his daily needs at 90% or greater, independently. 2) Patient will complete problem solving tasks related to his daily needs at 90% or greater, independently. 3) Patient will complete safety awareness tasks related to his daily needs at 90% or greater, independently. Speech [employer] Goals [employer] Goals Patient will improve cognitive-communication necessary for safety and daily living tasks with minimal assist. Speech-Plan Patient/Family Goals Patient/Family Goals: Patient plans on returning home or temporarily living with his [facility] upon discharge from rehab. Treatment Plan Speech Therapy Treatment Plan: Continue Plan of Care Patient is progressing well with skilled therapy. Treatment Duration: Aug 05, 2019 Frequency: 5 times per week Estimated Hrs Per Day: .5 hour per day Rehab Potential: Fair Barriers to Learning: Patient has mild cognitive deficits. Pt/Family Agrees to Plan: Yes Safety Risks/Education Teaching Recipient: Patient Teaching Methods: Demonstration, Discussion Response to Teaching: Verbalize Understanding, Return Demonstration Education Topics Provided: Continued safety upon discharge. Time Speech Therapy Time In: 09:30 Speech Therapy Time Out: 10:00 Total Billed Time: 30 Billed Treatment Time 1, PATRICIA Rae Aug 01, 2019 10:24
--- NOTE | 2019-08-01 13:18 | Occupational Ther Daily Note ---
OT Current Status-Daily Note Subjective Pt alert, lying in bed. Pt c/o back pain, stated that he had just taken pain meds. MHP placed at back to decreased pain during therapy session. Pt agrees to therapy. Mental Status/Objective Patient Orientation: Person, Place, Time, Situation Therapy Code Descriptions/Definitions Functional [place] Measure: 0=Not Assessed/NA 4=Minimal Assistance 1=Total Assistance 5=Supervision or Setup 2=Maximal Assistance 6=Modified [place] 3=Moderate Assistance 7=Complete [place] ADL-Treatment Therapy Code Descriptions/Definitions Functional [place] Measure: 0=Not Assessed/NA 4=Minimal Assistance 1=Total Assistance 5=Supervision or Setup 2=Maximal Assistance 6=Modified [place] 3=Moderate Assistance 7=Complete [place] Therapy Quality Codes: 6 Independent with activity with or without an assistive device 5 Patient requires set up or clean up by helper. Patient completes activity by themselves 4 Supervision or touching assist (CGA). [place] provide cues , steadying assist 3 The helper provides less than half the effort to complete the activity 2 The helper provides more than half the effort to complete the activity 1 Dependent. The helper does all the effort to complete an activity 7 Patient refused to complete or attempt activity 9 The patient did not perform the activity before the current illness or injury 88 Not attempted due to Medical conditions or safety concerns Other Treatment Pt completed UE strengthening activity involving fine motor dexterity/coordination. 1# wt attached to B wrists while pt manipulated small objects, reach/grasp items in designated area and holding UE's against gravity using 1# wt. Pt tolerated well. After therapy, pt lying in bed with call light/phone in reach. Nrsg in room. All needs met in room. OT Short Term Goals Short Term Goals Lower Body Dressing(FIM): 3 Toilet/Commode Transfer(FIM): 3 Additional Short Term Goals: 1-Demonstrate ADL Tasks, 2-Verbalize Understanding, 3-ImproveStrength/Jesus Alberto 1=Demonstrate adherence to instructed precautions during ADL tasks. 2=Patient will verbalize/demonstrate understanding of assistive devices/modifications for ADL. 3=Patient will improve strength/tolerance for activity to enable patient to perform ADL's. OT Fci Goals Fci Goals Eating (QC): 6 Oral Hygiene (QC): 6 Shower/Bathe Self (QC): 6 Upper Body Dressing (QC): 6 Lower Body Dressing (QC): 5 On/Off Footwear (QC): 6 Toileting Hygiene (QC): 5 Toilet/Commode Transfer (QC): 5 Additional Goals: 1-Demonstrate ADL Tasks, 2-Verbalize Understanding, 3- ImproveStrength/Jesus Alberto 1=Demonstrate adherence to instructed precautions during ADL tasks. 2=Patient will verbalize/demonstrate understanding of assistive devices/modifications for ADL. 3=Patient will improve strength/tolerance for activity to enable patient to perform ADL's. OT Education/Plan Problem List/Assessment Assessment: Decreased Activ Tolerance, Decreased UE Strength, Impaired Self- Care Skills Discharge Recommendations Plan/Recommendations: Continue POC Treatment Plan/Plan of Care Patient would benefit from OT for education, treatment and training to promote independence in ADL's, mobility, safety and/or upper extremity function for ADL's. Plan of Care: ADL Retraining, Caregiver Training, Concurrent Therapy, Functional Mobility, Group Exercise/Act as Ind, UE Funct Exercise/Act Treatment Duration: Jul 27, 2019 Frequency: At least 5 of 7 days/Wk (IRF) Estimated Hrs Per Day: 1.5 hours per day Agreement: Yes Rehab Potential: Fair Time/GCodes Start Time: 12:45 Stop Time: 13:15 Total Time Billed (hr/min): 30 Billed Treatment Time 1 visit-EX 2 (30 min), SNEHA POLLACK Aug 01, 2019 13:18
--- NOTE | 2019-08-01 16:24 | Pulmonary Progress Note ---
Standard Progress Note Progress Notes Date Seen by Provider: Aug 01, 2019 Time Seen by Provider: 16:23 Pt is sitting up with at bedside. No c/o. Denies cough, Denies sob Assessment & Plan Lungs cta Cervical spinal stenosis/ Lumbar spinal stenosis -s/p L2-3 laminectomy PT/OT following COPD - stable ( reports no hx of) -COPD is stable continue SVNS -nebulizers QID -IS -Monitor hx of ROYAL -untreated (Admission, labs, images, and Dr. Rodriguez's inpt progress notes were reviewed for continued care) SATURNINO GUEVARA APRN Aug 01, 2019 16:24
--- NOTE | 2019-08-01 16:59 | NUR ---
Lortab given for pain management per pts request
[2019-08-01 17:36] VITALS: BP 107/68
[2019-08-01] MEDS: risperiDONE 0.25 MG (RisperDAL) TAB PO SCH (20:20)
[2019-08-01] MEDS: DONEPEZIL 10 MG (ARICEPT) TAB PO SCH (20:20)
[2019-08-01] MEDS: MELATONIN 3 MG TABLET PO PRN (20:20)
[2019-08-01 20:30] VITALS: BP 93/57
[2019-08-01] MEDS: TERAZOSIN 5 MG (HYTRIN) CAPSULE PO SCH (20:43)
[2019-08-01] MEDS: amLODIPine 10 MG (NORVASC) TAB PO SCH (20:43)
--- NOTE | 2019-08-01 20:44 | NUR ---
Dr. Cowan notified of BP at 93/57 with hr at 84. While Coreg has perimeters for administration, Hytrin and Norvasc do not. instructed to hold all three bp medications for tonight.
[2019-08-02 05:19] VITALS: BP 125/74
[2019-08-02] MEDS: LACTOBACILLUS ACIDOPHILUS (PROBIOTIC) CAPSULE PO SCH ×3 (06:38→17:20)
[2019-08-02] MEDS: PANTOPRAZOLE 40 MG (PROTONIX) TAB PO SCH (06:38)
[2019-08-02] MEDS: HYDROcodone/APAP 5 MG/325 MG (LORTAB) TAB PO PRN ×3 (06:40→17:34)
[2019-08-02] MEDS: RT-ALBUTEROL/IPRATROPIUM 3 ML (DUONEB) VIAL INH SCH ×4 (07:03→19:32)
[2019-08-02 08:00] VITALS: BP 96/62
[2019-08-02] MEDS: DULoxetine 30 MG (CYMBALTA) CAP PO SCH (08:02)
[2019-08-02] MEDS: TOLTERODINE LA 4 MG (DETROL) CAP PO SCH (08:02)
[2019-08-02] MEDS: LORATADINE (CLARITIN) 10 MG TAB PO SCH (08:02)
[2019-08-02] MEDS: ASPIRIN E.C. 81 MG (ECOTRIN) TAB PO SCH (08:02)
[2019-08-02] MEDS: CLOPIDOGREL 75 MG (PLAVIX) TABLET PO SCH (08:02)
[2019-08-02] MEDS: CARVEDILOL 3.125 MG (COREG) TABLET PO SCH ×2 (09:03→20:17)
[2019-08-02] MEDS: BISACODYL 10 MG SUPP (DULCOLAX) PR SCH ×2 (09:04→21:23)
[2019-08-02] MEDS: SENNA W/DOCUSATE (SENOKOT S) TABLET PO SCH ×2 (09:04→21:22)
[2019-08-02] MEDS: LOSARTAN 50 MG (COZAAR) TAB PO SCH (09:04)
[2019-08-02] MEDS: POLYETHYLENE GLYCOL 17 GM (MIRALAX) PACK PO SCH ×2 (09:04→21:22)
[2019-08-02] MEDS: DOCUSATE CALCIUM 240 MG (SURFAK) CAP PO SCH ×2 (09:05→21:22)
--- NOTE | 2019-08-02 09:31 | Physical Therapy Daily Note ---
PT Daily Note-Current Subjective Pt sitting at EOB with OT present upon arrival. Pt agrees to PT/OT co-treat. Pain Numeric Pain Scale: 5-Moderate Pain Location Body Site: Thigh Pain Description: Ache, Tightness Comment: Pt reports pain/tightness of muscles w/Ex. Mental Status Patient Orientation: Person, Place, Situation Transfers SCALE: Activities may be completed with or without assistive devices. 0-Vpegqjufhg-kxutnfq completes the activity by him/herself with no assistance from a helper. 5-Set-up or Clean-up Assistance-helper sets up or cleans up; patient completes activity. [place] assists only prior to or following the activity. 4-Supervision or Touching Assistance-helper provides verbal cues and/or touching/steadying and/or contact guard assistance as patient completes activity . Assistance may be provided throughout the activity or intermittently. 3-Partial/Moderate Assistance-helper does LESS THAN HALF the effort. [place] lifts, holds or supports trunk or limbs, but provides less than half the effort. 2-Substantial/Maximal Assistance-helper does MORE THAN HALF the effort. [place] lifts or holds trunk or limbs and provides more than half the effort. 9-Kjhbrwqin-hagmft does ALL the effort. Patient does none of the effort to complete the activity. Or, the assistance of 2 or more helpers is required for the patient to complete the activity. If activity was not attempted, code reason: 7-Patient Refused. 9-Not Applicable-not attempted and the patient did not perform the activity before the current illness, exacerbation or injury. 10-Not Attempted due to Environmental Limitations-(lack of equipment, weather restraints, etc.). 88-Not Attempted due to Medical Conditions or Safety Concerns. Transfers (B, C, W/C): 4 Roll Left to Right (QC): 4 Sit to Lying (QC): 4 Chair/Qjd-gl-Rjhwr Xfer(QC): 5 Bed to/from Chair: 5 Weight Bearing Right Lower Extremity: Right Weight Bearing/Tolerated Left Lower Extremity: Left Weight Bearing/Tolerated Wheelchair Training Does the Pt Use a Wheelchair?: Yes Wheelchair Distance: 3=150 ft Distance: 150' Wheel 50 ft with 2 turns (QC): 5 Wheel 150 ft (QC): 5 Type of Wheelchair: Manual Exercises Seated Therapy Exercises: Ankle pumps, Sit to stand (3 reps with standing as loc as pt can tolerate), Long arc quads, Hip flexion, Kicking activity Seated Reps: 15 Treatments Co-treatment of two needed for balance with standing as well as strengthening for both UE & LE and transfers. OT works on UE strengthening, proper hand placement & ADLs while PT works on transfers, W/C mobility, standing & LE strengthening. Pt is sitting EOB upon arrival. Pt lays back to Supine to don/doff brief and pants. Pt transfers back to EOB and completes Slide Board transfer to W/C. Pt propels W/C in hallway and to Therapy Gym. Pt completes 3 sets of sit to stand with short time standing in //bars, RB between each. Pt transfers from W/C to EOM using Slide Board where pt completes Seated UE & LE Ex. Pt then transfers back to W/C via Slide Board and propels W/C in hallway and back to room to rest. Pt is resting in W/C at end of tx with all needs met, call light in hand. Assessment Current Status: Good Progress Pt is improving but strength continues to remain a struggle as well as placing slide board independently. PT Short Term Goals Short Term Goals Time Frame: Aug 02, 2019 Wheelchair Distance: 20 PT Group Home Goals Med Aide Goals PT Med Aide Goals Time Frame: Aug 16, 2019 Sit to Lying (QC): 3 (Olu) Lying-Sitting on Side/Bed(QC): 3 (Kofi) Sit to Stand (QC): 1 Roll Left to Right (QC): 3 (Olu) Chair/Tbh-ff-Gtgrh Xfer(QC): 3 (Olu) Car Transfer (QC): 1 Walk 10 feet (QC): 88 Walk 10ft-Uneven Surface(QC): 88 Walk 50ft with 2 Turns (QC): 88 Walk 150 ft (QC): 88 Wheel 50 feet with 2 turns (QC: 5 1 Step (curb) (QC): 88 4 Steps (QC): 88 12 Steps (QC): 88 Picking up an Object (QC): 88 PT Plan Problem List Problem List: Activity Tolerance, Functional Strength, Safety, Gait, Transfer Treatment/Plan Treatment Plan: Continue Plan of Care Treatment Plan: Bed Mobility, Concurrent Therapy, Education, Functional Activity Jesus Alberto, Functional Strength, Group Therapy, Gait, Safety, Therapeutic Exercise, Transfers Treatment Duration: Aug 16, 2019 Frequency: At least 5 of 7 days/Wk (IRF) Estimated Hrs Per Day: 1.5 hours per day Patient and/or Family Agrees t: Yes Safety Risks/Education Patient Education: Transfer Techniques, Correct Positioning, W/C Management, Safety Issues Teaching Recipient: Patient Teaching Methods: Discussion Response to Teaching: Verbalize Understanding Time/GCodes Time In: 815 Time Out: 915 Total Billed Treatment Time: 60 Total Billed Treatment 1, WCH (20m) & FA x3 (40m) Co-treat w/OT from 815-915 (60m) CAITLIN PIERRE TRAILHEAD MAINTENANCE WORKER Aug 02, 2019 09:31
--- NOTE | 2019-08-02 09:36 | PM&R Progress Note ---
Subjective HPI/CC On Admission Date Seen by Provider: Aug 02, 2019 Time Seen by Provider: 08:15 CC: Cervical spine injury non-traumatic HPI: This is a 78yoWM who presented to the Hospital with significant compromise in function, was found to have significant cervical spine stenosis causing generalized weakness globally, that was complicated with delirium post- operatively in addition to a UTI diagnosis. Pt previously doctored with Dr. Nickolas Danielson and did not see a regular platen grinder although he has had Bypass surgery and has known CAD. Pt was doing well but had a lengthy acute care course and is in need of significant rehabilitation, prior to returning home. He seems to be very depressed, very tearful when I meet him and reports that he is about to turn 79 next month. I have tried to reassure him and I have put in a behavioral health consult in for him because of obvious tearfulness and overwhelmed feeling and loss of independence that he will need to be aggressively treated for in order to return home safely. Previously he used a walker for the past 6 months prior to admission, had lumbar spine surgery then was discharged home and home PT Collette Ramos evaluated the Pt to have such sev ere weakness that he was total care so he was sent to the ER for workup and from there thing progressed into cervical spine MRI showing severe stenosis and Dr. Bhatt performed surgery with good results but was so severe it was a dural tear during the surgery and he has become quite debilitated. He is urinating well, hasn't had a BM in several days so will need to work on that when he is admitted into the inpatient rehab unit. Overall he will be aggressively treated in order to re-gain his independence in order to return home. Subjective/Events-last exam Pt doing very well. Slept well. Bowels are really moving, now loose after laxatives. No major concerns. BP a little bit low today. Denies any significant new issues. Check meds and labs Reviewed therapy notes Conferred with landscape gardener of Systems General: Fatigue Neurological: Weakness, Numbness, Incoordination Objective Exam Vital Signs Vital Signs Date Time Temp Pulse Resp B/P (MAP) Pulse Ox O2 Delivery O2 Flow Rate FiO2 08/02/19 19:32 96 Room Air 08/02/19 18:00 36.8 83 16 116/68 (84) Capillary Refill : Less Than 3 Seconds General Appearance: No Apparent Distress, WD/WN, Chronically ill HEENT: PERRL/EOMI, Normal ENT Inspection, Pharynx Normal, Moist Mucous Membranes Neck: Full Range of Motion, Normal Inspection, Non Tender, Supple Respiratory: Lungs Clear, Normal Breath Sounds, No Respiratory Distress Cardiovascular: Regular Rate, Rhythm, No JVD Gastrointestinal: Normal Bowel Sounds, No Organomegaly, No Pulsatile Mass, Non Tender, Soft Back: Normal Inspection, No CVA Tenderness, Decreased Range of Motion Extremity: Normal Capillary Refill, Normal Inspection, Normal Range of Motion, Non Tender, No Calf Tenderness, No Pedal Edema Neurologic/Psychiatric: Alert, Oriented x3, Normal Mood/Affect, armor officer II-XII Norm as Tested, Motor Weakness (generalized all extremities 3/5) Skin: Normal Color, Warm/Dry Lymphatic: No Adenopathy Results/Procedures Lab Patient resulted labs reviewed. FIM Transfers Therapy Code Descriptions/Definitions Functional [place] Measure: 0=Not Assessed/NA 4=Minimal Assistance 1=Total Assistance 5=Supervision or Setup 2=Maximal Assistance 6=Modified [place] 3=Moderate Assistance 7=Complete IndependenceSCALE: Activities may be completed with or without assistive devices. 7-Lpakcsgxmo-zvihvux completes the activity by him/herself with no assistance from a helper. 5-Set-up or Clean-up Assistance-helper sets up or cleans up; patient completes activity. [place] assists only prior to or following the activity. 4-Supervision or Touching Assistance-helper provides verbal cues and/or touching/steadying and/or contact guard assistance as patient completes activity. Assistance may be provided throughout the activity or intermittently. 3-Partial/Moderate Assistance-helper does LESS THAN HALF the effort. [place] lifts, holds or supports trunk or limbs, but provides less than half the effort. 2-Substantial/Maximal Assistance-helper does MORE THAN HALF the effort. [place] lifts or holds trunk or limbs and provides more than half the effort. 8-Zrzmfprcr-xttius does ALL the effort. Patient does none of the effort to complete the activity. Or, the assistance of 2 or more helpers is required for the patient to complete the activity. If activity was not attempted, code reason: 7-Patient Refused. 9-Not Applicable-not attempted and the patient did not perform the activity before the current illness, exacerbation or injury. 10-Not Attempted due to Environmental Limitations-(lack of equipment, weather restraints, etc.). 88-Not Attempted due to Medical Conditions or Safety Concerns. Transfers (B, C, W/C) (FIM): 2 Roll Left to Right (QC): 4 Sit to Lying (QC): 4 Sit to Stand (QC): 2 Chair/Fmj-af-Siuce Xfer(QC): 3 Bed to/from Chair: 2 Car Transfer (QC): 1 Gait Training Does the Patient Walk?: No and Walking Goal NOT indicated Gait (FIM): 5 Walk 10 feet (QC): 5 Walk 50 ft with 2 Turns(QC): 5 Walk 150 ft (QC): 5 Walking 10ft/uneven surface-QC: 88 Gait Persons Needed: 1 Gait Assistive Device: FWW Wheelchair Training Does the Pt Use a Wheelchair?: Yes Wheelchair (FIM): 1 Wheelchair Distance: 1=125-76 ft (50ftx2, 25ftx4) Distance: 20 Wheel 50 ft with 2 turns (QC): 5 Wheel 150 ft (QC): 1 Type of Wheelchair: Manual ADL-Treatment Eating (QC): 6 Groomin (Pt brushed hair at bed level, he was able to gather hair brush from side table and complete task without assistance.) Oral Hygiene (QC): 6 (Pt washed dentures and put them in seated at sink in w/c.) Bathing Location: L Arm, R Arm, L Upper Leg, R Upper Leg, L Lower Leg (including foot), R Lower Leg (including foot), Chest, Abdomen, Perineal Area Shower/Bathe Self (QC): 1 (Pt educated on using long handled sponge to wash BLE. Pt was able to wash all parts of body except buttocks. Pt required x2 person assist with stand to wash buttocks, on assisting with washing, and one assisting with stand. Pt required mod verbal cues during shower for sequencing of task, pt washed his hair and then asked OT "now what?", OT had to cue pt on the next step throughout task and cue pt to take deep breaths and take rest breaks as needed.) Upper Body Dressing (QC): 5 (Pt able to doff hospital gown and don pull ove rshirt with set up assist of shirt.) Lower Body Dressing (QC): 3 (Pt able to thread BLE into pant legs, pt attempted stand with OT but pt was unable to complete safe stand. Pt able to manage pants up laying in bed, rolling side to side.) On/Off Footwear (QC): 2 (OT educated pt on using sock aid to don socks. OT assisted pt with doffing socks, & demo'd use of sock aid. Pt able to don sock on left foot using sock aid, required assistance with right foot secondary to dressing on heel of foot) Toileting Hygiene (QC): 1 (Assist x2, pt stood with PT from [facility] as OT performed hygine and clothing management for pt.) Toilet Transfer (QC): 1 (Pt able to perform SB transfer from EOB to drop arm commode with assist for hand placement and assist scooting across SB. Pt required x2 assist for squat pivot transfer from commode to recliner.) Assessment/Plan Assessment and Plan Assess & Plan/Chief Complaint Assessment: Spinal cord trauma from severe stenosis Debility CAD Delirium s/p UTI completed treatment Constipation now resolved 07/28/19 HTN HLP Cognitive deficit SLUMS Depression Plan: Monitor urinary system IRF protocol Increase strength BM regimen to maintain to prevent constipation Start antidepressant Monitor BP DC Decadron (1) Spinal cord injury (2) Generalized Weakness (3) Cervical spinal stenosis Status: Acute (4) Neuroforaminal stenosis of spine Status: Acute (5) Essential (primary) hypertension Status: Chronic (6) Lumbar spinal stenosis Status: Acute (7) Slipped intervertebral disc Status: Acute (8) Delirium Status: Acute (9) Incidental durotomy Status: Acute (10) CAD (coronary artery disease) Status: Chronic YANETH REEDER DO Aug 02, 2019 09:36
--- NOTE | 2019-08-02 10:16 | Occupational Ther Daily Note ---
OT Current Status-Daily Note Subjective Pt in bed, agrees to treatment. Pt states he has no pain at rest, but does have some back pain with activity. ADL-Treatment Pt supine to sit with assist for upper body. Pt completed sponge bath while seated EOB. Doff shirt without assist. Upper body bathing completed with SBA. Pt able to wash upper legs, uses long handled sponge to wash lower legs. Assist to wash buttocks. Don pullover shirt with SBA. Pt requested to complete LE dressing while in bed. Sit to supine with min assist. Pt requires assist to thread LE into Depends and pants. Rolled left and right to complete pant hike. Pt able to don socks with SBA while seated EOB. Transfer EOB to w/c with sliding board. Pt requires assist to place sliding board and skilled cues for proper transfer technique. Pt performed w/c mobility to therapy gym. Pt performed sit to stand x3 trials with max assist. Pt only able to tolerate standing for short time before requesting to sit. Pt fatigues quickly and requires extended rest breaks between activities. Pt transferred w/c to edge of mat with sliding board. Assist to place sliding board, but is able to remove after transfer with verbal cues. While seated edge of mat pt completed bilateral UE/LE exercises to increase strength and activity tolerance needed for functional task completion. Pt performed three UE exercises x15 reps with 1# dowel katya. Rest breaks between exercises. Pt performed w/c mobility back to room. Sitting in w/c with needs met after session. Co-treat with PT ([id number]) secondary to poor balance, strength, activity tolerance, and need for two skilled clinicians. OT focusing on ADLs, UE management, transfers, and safety. PT focusing on transfers, balance, standing and LE management. Therapy Code Descriptions/Definitions Functional [place] Measure: 0=Not Assessed/NA 4=Minimal Assistance 1=Total Assistance 5=Supervision or Setup 2=Maximal Assistance 6=Modified [place] 3=Moderate Assistance 7=Complete IndependenceSCALE: Activities may be completed with or without assistive devices. 4-Ukozvkjwpf-khsvgxp completes the activity by him/herself with no assistance from a helper. 5-Set-up or Clean-up Assistance-helper sets up or cleans up; patient completes activity. [place] assists only prior to or following the activity. 4-Supervision or Touching Assistance-helper provides verbal cues and/or touching/steadying and/or contact guard assistance as patient completes activity. Assistance may be provided throughout the activity or intermittently. 3-Partial/Moderate Assistance-helper does LESS THAN HALF the effort. [place] lifts, holds or supports trunk or limbs, but provides less than half the effort. 2-Substantial/Maximal Assistance-helper does MORE THAN HALF the effort. [place] lifts or holds trunk or limbs and provides more than half the effort. 9-Lrkoorgwf-jzppno does ALL the effort. Patient does none of the effort to complete the activity. Or, the assistance of 2 or more helpers is required for the patient to complete the activity. If activity was not attempted, code reason: 7-Patient Refused. 9-Not Applicable-not attempted and the patient did not perform the activity before the current illness, exacerbation or injury. 10-Not Attempted due to Environmental Limitations-(lack of equipment, weather restraints, etc.). 88-Not Attempted due to Medical Conditions or Safety Concerns. Shower/Bathe Self (QC): 3 Upper Body Dressing (QC): 4 Lower Body Dressing (QC): 2 OT Short Term Goals Short Term Goals Lower Body Dressing(FIM): 3 Toilet/Commode Transfer(FIM): 3 Additional Short Term Goals: 1-Demonstrate ADL Tasks, 2-Verbalize Understandi ng, 3-ImproveStrength/Jesus Alberto 1=Demonstrate adherence to instructed precautions during ADL tasks. 2=Patient will verbalize/demonstrate understanding of assistive devices/modifications for ADL. 3=Patient will improve strength/tolerance for activity to enable patient to perform ADL's. OT Jail Goals Jail Goals Eating (QC): 6 Oral Hygiene (QC): 6 Shower/Bathe Self (QC): 6 Upper Body Dressing (QC): 6 Lower Body Dressing (QC): 5 On/Off Footwear (QC): 6 Toileting Hygiene (QC): 5 Toilet/Commode Transfer (QC): 5 Additional Goals: 1-Demonstrate ADL Tasks, 2-Verbalize Understanding, 3- ImproveStrength/Jesus Alberto 1=Demonstrate adherence to instructed precautions during ADL tasks. 2=Patient will verbalize/demonstrate understanding of assistive devices/modifications for ADL. 3=Patient will improve strength/tolerance for activity to enable patient to perform ADL's. OT Education/Plan Discharge Recommendations Plan/Recommendations: Continue POC Treatment Plan/Plan of Care Patient would benefit from OT for education, treatment and training to promote independence in ADL's, mobility, safety and/or upper extremity function for ADL's. Plan of Care: ADL Retraining, Caregiver Training, Concurrent Therapy, Functional Mobility, Group Exercise/Act as Ind, UE Funct Exercise/Act Treatment Duration: Jul 27, 2019 Frequency: At least 5 of 7 days/Wk (IRF) Estimated Hrs Per Day: 1.5 hours per day Agreement: Yes Rehab Potential: Fair Time/GCodes Start Time: 08:00 Stop Time: 09:15 Total Time Billed (hr/min): 75 Billed Treatment Time 1 visit, ADLx2(30minutes), FAx2(35minutes), EX(10minutes) LISANDRO STONE OT Aug 02, 2019 10:16
--- NOTE | 2019-08-02 12:23 | NUR ---
PATIENT IS NOT WANTING TO ORDER LUNCH AT THIS TIME. HE WILL NOTIFY STAFF WHEN HE IS READY TO EAT.
--- NOTE | 2019-08-02 14:03 | Physical Therapy Daily Note ---
PT Daily Note-Current Subjective Pt laying Supine in bed upon arrival. Pt agrees to Supine Ex due to reported fatigue from morning tx. Pain Location: No Pain Reported Mental Status Patient Orientation: Person, Place, Situation Transfers SCALE: Activities may be completed with or without assistive devices. 9-Qfimdqwtdy-nisijym completes the activity by him/herself with no assistance from a helper. 5-Set-up or Clean-up Assistance-helper sets up or cleans up; patient completes activity. Varnell assists only prior to or following the activity. 4-Supervision or Touching Assistance-helper provides verbal cues and/or touching/steadying and/or contact guard assistance as patient completes activity. Assistance may be provided throughout the activity or intermittently. 3-Partial/Moderate Assistance-helper does LESS THAN HALF the effort. Varnell lifts, holds or supports trunk or limbs, but provides less than half the effort. 2-Substantial/Maximal Assistance-helper does MORE THAN HALF the effort. Varnell lifts or holds trunk or limbs and provides more than half the effort. 7-Ejckxkxjd-aqiewg does ALL the effort. Patient does none of the effort to complete the activity. Or, the assistance of 2 or more helpers is required for the patient to complete the activity. If activity was not attempted, code reason: 7-Patient Refused. 9-Not Applicable-not attempted and the patient did not perform the activity before the current illness, exacerbation or injury. 10-Not Attempted due to Environmental Limitations-(lack of equipment, weather restraints, etc.). 88-Not Attempted due to Medical Conditions or Safety Concerns. Weight Bearing Right Lower Extremity: Right Weight Bearing/Tolerated Left Lower Extremity: Left Weight Bearing/Tolerated Exercises Supine Ex: Ankle pumps, Quad Set, Glut sets, Heel Slides, Hip abd/add Supine Reps: 15 Treatments Pt completes Supine Ex in bed with RB as needed. Pt is resting in bed, repositioned with all needs met, call light in hand. Assessment Current Status: Good Progress Pt tolerates tx well. PT Short Term Goals Short Term Goals Time Frame: Aug 02, 2019 Wheelchair Distance: 150' PT [facility] Goals [facility] Goals PT Client Engagement Manager Goals Time Frame: Aug 16, 2019 Sit to Lying (QC): 3 (Olu) Lying-Sitting on Side/Bed(QC): 3 (Kofi) Sit to Stand (QC): 1 Roll Left to Right (QC): 3 (Olu) Chair/Rah-bi-Pzyap Xfer(QC): 3 (Olu) Car Transfer (QC): 1 Walk 10 feet (QC): 88 Walk 10ft-Uneven Surface(QC): 88 Walk 50ft with 2 Turns (QC): 88 Walk 150 ft (QC): 88 Wheel 50 feet with 2 turns (QC: 5 1 Step (curb) (QC): 88 4 Steps (QC): 88 12 Steps (QC): 88 Picking up an Object (QC): 88 PT Plan Problem List Problem List: Activity Tolerance, Functional Strength Treatment/Plan Treatment Plan: Continue Plan of Care Treatment Plan: Bed Mobility, Concurrent Therapy, Education, Functional Activity Jesus Alberto, Functional Strength, Group Therapy, Gait, Safety, Therapeutic Exercise, Transfers Treatment Duration: Aug 16, 2019 Frequency: At least 5 of 7 days/Wk (IRF) Estimated Hrs Per Day: 1.5 hours per day Patient and/or Family Agrees t: Yes Safety Risks/Education Patient Education: Correct Positioning, Safety Issues Teaching Recipient: Patient Teaching Methods: Discussion Response to Teaching: Verbalize Understanding Time/GCodes Time In: 1315 Time Out: 1330 Total Billed Treatment Time: 15 Total Billed Treatment 1, EX (15m) CAITLIN PIERRE SUPERVISOR CAB Aug 02, 2019 14:03
--- NOTE | 2019-08-02 14:48 | Speech Therapy Daily Note ---
Speech Daily Progress Note Subjective Date Seen by Provider: Aug 02, 2019 Time Seen by Provider: 00:30 Patient was resting in his wheelchair post OT and PT. Objective Patient completed memory and safety awareness tasks related to his daily needs at 85% with 20% verbal cues and/or repetitions. Assessment Assessment Current Status: Good Progress Treatment Plan Continue Plan of Care Speech Short Term Goals Short Term Goals Short Term Goals 1) Patient will complete memory tasks related to his daily needs at 90% or greater, independently. 2) Patient will complete problem solving tasks related to his daily needs at 90% or greater, independently. 3) Patient will complete safety awareness tasks related to his daily needs at 90% or greater, independently. Speech Science Consultant Goals Science Consultant Goals Patient will improve cognitive-communication necessary for safety and daily living tasks with minimal assist. Speech-Plan Patient/Family Goals Patient/Family Goals: Patient plans on returning home or to live temporarily with his the [facility] post rehab. Treatment Plan Speech Therapy Treatment Plan: Continue Plan of Care Patient is progressing well as a result of skilled therapy. Treatment Duration: Aug 05, 2019 Frequency: 5 times per week Estimated Hrs Per Day: .5 hour per day Rehab Potential: Fair Barriers to Learning: Mild cognitive deficits Pt/Family Agrees to Plan: Yes Safety Risks/Education Teaching Recipient: Patient Teaching Methods: Demonstration, Discussion Response to Teaching: Verbalize Understanding, Return Demonstration Education Topics Provided: Continued safety within his room. Time Speech Therapy Time In: 09:35 Speech Therapy Time Out: 10:05 Total Billed Time: 30 Billed Treatment Time 1, PATRICIA Rae Aug 02, 2019 14:48
--- NOTE | 2019-08-02 15:06 | NUR ---
PATIENT REPORTED THAT HE JUST ORDERED HIS OWN LUNCH.
--- NOTE | 2019-08-02 15:41 | NUR ---
Contacted [facility], and received confirmation they will provide/install ramp. Once a tentative discharge date is established, this worker to notify Lianet, [facility]. In addition to discharge date, Lianet will need PT documentation supporting need for ramp. Will send requested information, once received. Will continue to follow for discharge planning. Lianet
--- NOTE | 2019-08-02 17:45 | NUR ---
DR HDEZ HERE. DRESSING AND STERI-STRIPS REMOVED FROM PATIENT'S BACK. LEAVE OPEN TO AIR SO THAT IT WILL DRY OUT.
[2019-08-02 18:00] VITALS: BP 116/68
--- NOTE | 2019-08-02 18:35 | Progress Note ---
Standard Progress Note Progress Notes/Assess & Plan Date Seen by a Provider: Aug 02, 2019 Time Seen by a Provider: 17:00 Progress/Assessment & Plan Pt ART, pain controlled, no complaints VSSAF Incision with some local irritation from dressing material/small amount of superficial dehiscence distal apex, no gross signs of infection and otherwise stable Making progress in neuromotor recovery of the LEs Continue local wound care and daily rehab. F/U outpatient in 2 weeks Vitals Signs Source: Temporal, Heart Rate: 83, Respiratory Rate: 16, BP: 116/68, Pulse Oximetry: 97, Weight: 82.3 ADAM HDEZ DO Aug 02, 2019 18:35
[2019-08-02] MEDS: DONEPEZIL 10 MG (ARICEPT) TAB PO SCH (20:17)
[2019-08-02] MEDS: TERAZOSIN 5 MG (HYTRIN) CAPSULE PO SCH (20:17)
[2019-08-02] MEDS: amLODIPine 10 MG (NORVASC) TAB PO SCH (20:17)
[2019-08-02] MEDS: risperiDONE 0.25 MG (RisperDAL) TAB PO SCH (20:17)
[2019-08-02] MEDS: MELATONIN 3 MG TABLET PO PRN (20:18)
[2019-08-03 05:20] VITALS: BP 99/66
[2019-08-03] MEDS: PANTOPRAZOLE 40 MG (PROTONIX) TAB PO SCH (06:23)
[2019-08-03] MEDS: HYDROcodone/APAP 5 MG/325 MG (LORTAB) TAB PO PRN ×3 (06:23→17:05)
[2019-08-03] MEDS: LACTOBACILLUS ACIDOPHILUS (PROBIOTIC) CAPSULE PO SCH ×3 (06:23→17:05)
[2019-08-03] MEDS: CARVEDILOL 3.125 MG (COREG) TABLET PO SCH ×2 (07:29→20:34)
[2019-08-03] MEDS: POLYETHYLENE GLYCOL 17 GM (MIRALAX) PACK PO SCH ×2 (07:29→20:34)
[2019-08-03] MEDS: BISACODYL 10 MG SUPP (DULCOLAX) PR SCH ×2 (07:30→20:35)
[2019-08-03] MEDS: DOCUSATE CALCIUM 240 MG (SURFAK) CAP PO SCH ×2 (07:30→20:34)
[2019-08-03] MEDS: SENNA W/DOCUSATE (SENOKOT S) TABLET PO SCH ×2 (07:30→20:34)
[2019-08-03] MEDS: LOSARTAN 50 MG (COZAAR) TAB PO SCH (07:31)
[2019-08-03] MEDS: RT-ALBUTEROL/IPRATROPIUM 3 ML (DUONEB) VIAL INH SCH ×5 (07:32→20:06)
[2019-08-03] MEDS: ASPIRIN E.C. 81 MG (ECOTRIN) TAB PO SCH (07:56)
[2019-08-03] MEDS: LORATADINE (CLARITIN) 10 MG TAB PO SCH (07:56)
[2019-08-03] MEDS: DULoxetine 30 MG (CYMBALTA) CAP PO SCH (07:56)
[2019-08-03] MEDS: CLOPIDOGREL 75 MG (PLAVIX) TABLET PO SCH (07:56)
[2019-08-03] MEDS: TOLTERODINE LA 4 MG (DETROL) CAP PO SCH (07:57)
--- NOTE | 2019-08-03 08:36 | Cardiology Progress Note ---
Subjective Date Seen by Provider: Aug 03, 2019 Time Seen by Provider: 08:35 Subjective/Events-last exam Patient up with PT, denies any dizziness or lightheadedness. Noted to be hyp otensive. Denies any chest pain or dyspnea Review of Systems General: No Chills, No Night Sweats, No Fatigue, No Malaise, No Appetite, No Other HEENT: No Head Aches, No Visual Changes, No Eye Pain, No Ear Pain, No Dysphasia, No Sinus Congestion, No Post Nasal Drip, No Sore Throat, No Other Pulmonary: No Dyspnea, No Cough, No Pleuritic Chest Pain, No Other Cardiovascular: No: Chest Pain, Palpitations, Orthopnea, Paroxysmal Noc. Dyspnea, Edema, Lt Headedness, Other Objective-Cardiology Exam Last Set of Vital Signs Vital Signs 08/03/19 08/03/19 05:20 11:16 Temp 36.4 Pulse 67 Resp 16 B/P (MAP) 99/66 (77) Pulse Ox 95 O2 Delivery Room Air Capillary Refill : Less Than 3 Seconds I&O Intake and Output 08/03/19 00:00 Intake Total 650 ml Output Total 450 ml Balance 200 ml Intake Oral 650 ml Output Urine Total 450 ml # Bowel Movements 1 General: Alert, Oriented X3, Cooperative, Mild Distress HEENT: Atraumatic, EOMI Neck: Supple, No JVD, No Thyromegaly Lungs: Clear to Auscultation, Normal Air Movement Heart: Regular Rate, Normal S1, Normal S2, No Murmurs Abdomen: Normal Bowel Sounds, Soft, No Tenderness, No Hepatosplenomegaly, No Masses Extremities: No Cyanosis, Normal Pulses Skin: No Rashes, No Breakdown, No Significant Lesion Neuro: Normal Speech, Normal Tone Psych/Mental Status: Mental Status NL A/P-Cardiology Admission Diagnosis Spinal Stenosis Chest pain CAD HTN Assessment/Plan Spinal stenosis, slipped disc, status post L2-3 laminectomy done on July 20, 2019, back pain continues to improve. Chest pain, chronic stable angina, no further episodes of chest pain reported. Continue to monitor Coronary artery disease, history of CABG, multiple intervention the past, recent cardiac catheterization with drug-eluting stent deployment to the vein graft to the diagonal artery, had a patent GRACE to LAD with patent stent beyond the anastomosis in the LAD, small vessel disease otherwise done by Dr. Perez in [facility], currently back on Plavix. Continue to monitor Hypertension, hypotensive this morning. stop amlodipine, decrease losartan to 25 mg daily and Coreg to 3.125 mg twice daily and monitor blood pressure Sinus bradycardia. Secondary to medication, continue to monitor heart rate Hyperlipidemia, maintained on statin Generalized weakness, lower and upper extremity weakness, cervical spinal stenosis with slipped disc, s/p L 2-[address] Bhatt earlier this morning. Dementia Patient was seen and evaluated with Jill, examination performed, management plan was discussed, agree with the current scribed note, I made few changes to the note using Italic font Patient is feeling well, still having back pain, no chest pain Still hypotensive, did adjust his blood pressure medication as described above Clinical Quality Measures DVT/VTE Risk/Contraindication: Risk Factor Score Per Nursin RFS Level Per Nursing on Admit: 4+=Very High JILL FULLER Aug 03, 2019 08:36 CHRISTIANO DAVIS MD Aug 03, 2019 14:28
--- NOTE | 2019-08-03 08:56 | PM&R Progress Note ---
Subjective HPI/CC On Admission Date Seen by Provider: Aug 03, 2019 Time Seen by Provider: 08:30 CC: Cervical spine injury non-traumatic HPI: This is a 78yoWM who presented to the Hospital with significant compromise in function, was found to have significant cervical spine stenosis causing generalized weakness globally, that was complicated with delirium post- operatively in addition to a UTI diagnosis. Pt previously doctored with Dr. Nickolas Danielson and did not see a regular rn concurrent review although he has had Bypass surgery and has known CAD. Pt was doing well but had a lengthy acute care course and is in need of significant rehabilitation, prior to returning home. He seems to be very depressed, very tearful when I meet him and reports that he is about to turn 79 next month. I have tried to reassure him and I have put in a behavioral health consult in for him because of obvious tearfulness and overwhelmed feeling and loss of independence that he will need to be aggressively treated for in order to return home safely. Previously he used a walker for the past 6 months prior to admission, had lumbar spine surgery then was discharged home and home PT Collette Ramos evaluated the Pt to have such sev ere weakness that he was total care so he was sent to the ER for workup and from there thing progressed into cervical spine MRI showing severe stenosis and Dr. Bhatt performed surgery with good results but was so severe it was a dural tear during the surgery and he has become quite debilitated. He is urinating well, hasn't had a BM in several days so will need to work on that when he is admitted into the inpatient rehab unit. Overall he will be aggressively treated in order to re-gain his independence in order to return home. Subjective/Events-last exam Holding laxatives due to loose stools Holding BP medication and Norvasc was stopped by Cardiology [facility]ision looks good and is healing well Heels are pink so will monitor those for decubitus ulcers Incontinence remains with bowel and bladder dysfunctions Increased pain today for unknown reason, he really hasn't had too much pain issues so will monitor that closely Check meds and labs Reviewed therapy notes Conferred with document imaging specialist of Systems Genitourinary: Incontinence Musculoskeletal: back pain Objective Exam Vital Signs Vital Signs Date Time Temp Pulse Resp B/P (MAP) Pulse Ox O2 Delivery O2 Flow Rate FiO2 08/03/19 17:07 37.0 87 18 96/63 (74) 96 Room Air Capillary Refill : Less Than 3 Seconds General Appearance: No Apparent Distress, WD/WN, Chronically ill HEENT: PERRL/EOMI, Normal ENT Inspection, Pharynx Normal, Moist Mucous Membranes Neck: Full Range of Motion, Normal Inspection, Non Tender, Supple Respiratory: Lungs Clear, Normal Breath Sounds, No Respiratory Distress Cardiovascular: Regular Rate, Rhythm, No JVD Gastrointestinal: Normal Bowel Sounds, No Organomegaly, No Pulsatile Mass, Non Tender, Soft Back: Normal Inspection, No CVA Tenderness, Decreased Range of Motion Extremity: Normal Capillary Refill, Normal Inspection, Normal Range of Motion, Non Tender, No Calf Tenderness, No Pedal Edema Neurologic/Psychiatric: Alert, Oriented x3, Normal Mood/Affect, human resources receptionist II-XII Norm as Tested, Motor Weakness (generalized all extremities 3/5) Skin: Normal Color, Warm/Dry Lymphatic: No Adenopathy Results/Procedures Lab Patient resulted labs reviewed. FIM Transfers Therapy Code Descriptions/Definitions Functional [place] Measure: 0=Not Assessed/NA 4=Minimal Assistance 1=Total Assistance 5=Supervision or Setup 2=Maximal Assistance 6=Modified [place] 3=Moderate Assistance 7=Complete IndependenceSCALE: Activities may be completed with or without assistive devices. 7-Zzctbjdzpa-xnwjpsj completes the activity by him/herself with no assistance from a helper. 5-Set-up or Clean-up Assistance-helper sets up or cleans up; patient completes activity. [place] assists only prior to or following the activity. 4-Supervision or Touching Assistance-helper provides verbal cues and/or touching/steadying and/or contact guard assistance as patient completes activity. Assistance may be provided throughout the activity or intermittently. 3-Partial/Moderate Assistance-helper does LESS THAN HALF the effort. [place] lifts, holds or supports trunk or limbs, but provides less than half the effort. 2-Substantial/Maximal Assistance-helper does MORE THAN HALF the effort. [place] lifts or holds trunk or limbs and provides more than half the effort. 9-Ekxvqbbsq-rplmww does ALL the effort. Patient does none of the effort to complete the activity. Or, the assistance of 2 or more helpers is required for the patient to complete the activity. If activity was not attempted, code reason: 7-Patient Refused. 9-Not Applicable-not attempted and the patient did not perform the activity before the current illness, exacerbation or injury. 10-Not Attempted due to Environmental Limitations-(lack of equipment, weather restraints, etc.). 88-Not Attempted due to Medical Conditions or Safety Concerns. Transfers (B, C, W/C) (FIM): 4 Roll Left to Right (QC): 4 Sit to Lying (QC): 4 Sit to Stand (QC): 2 Chair/Hxq-px-Tqwzt Xfer(QC): 5 Bed to/from Chair: 5 Car Transfer (QC): 1 Gait Training Does the Patient Walk?: No and Walking Goal NOT indicated Gait (FIM): 5 Walk 10 feet (QC): 5 Walk 50 ft with 2 Turns(QC): 5 Walk 150 ft (QC): 5 Walking 10ft/uneven surface-QC: 88 Gait Persons Needed: 1 Gait Assistive Device: FWW Wheelchair Training Does the Pt Use a Wheelchair?: Yes Wheelchair (FIM): 1 Wheelchair Distance: 3=150 ft Distance: 150' Wheel 50 ft with 2 turns (QC): 5 Wheel 150 ft (QC): 5 Type of Wheelchair: Manual ADL-Treatment Eating (QC): 6 Groomin (Pt brushed hair at bed level, he was able to gather hair brush from side table and complete task without assistance.) Oral Hygiene (QC): 6 (Pt washed dentures and put them in seated at sink in w/c.) Bathing Location: L Arm, R Arm, L Upper Leg, R Upper Leg, L Lower Leg (including foot), R Lower Leg (including foot), Chest, Abdomen, Perineal Area Shower/Bathe Self (QC): 3 Upper Body Dressing (QC): 4 Lower Body Dressing (QC): 2 On/Off Footwear (QC): 2 (OT educated pt on using sock aid to don socks. OT assisted pt with doffing socks, & demo'd use of sock aid. Pt able to don sock on left foot using sock aid, required assistance with right foot secondary to dressing on heel of foot) Toileting Hygiene (QC): 1 (Assist x2, pt stood with PT from [facility] as OT performed hygine and clothing management for pt.) Toilet Transfer (QC): 1 (Pt able to perform SB transfer from EOB to drop arm commode with assist for hand placement and assist scooting across SB. Pt required x2 assist for squat pivot transfer from commode to recliner.) Assessment/Plan Assessment and Plan Assess & Plan/Chief Complaint Assessment: Spinal cord trauma from severe stenosis Debility CAD Delirium s/p UTI completed treatment Constipation now resolved 07/28/19 HTN HLP Cognitive deficit SLUMS Depression Plan: Monitor urinary system IRF protocol Increase strength BM regimen to hold due to loose stools Started antidepressant Monitor BP DC Decadron (1) Spinal cord injury (2) Generalized Weakness (3) Cervical spinal stenosis Status: Acute (4) Neuroforaminal stenosis of spine Status: Acute (5) Essential (primary) hypertension Status: Chronic (6) Lumbar spinal stenosis Status: Acute (7) Slipped intervertebral disc Status: Acute (8) Delirium Status: Acute (9) Incidental durotomy Status: Acute (10) CAD (coronary artery disease) Status: Chronic YANETH REEDER DO Aug 03, 2019 08:56
[2019-08-03] MEDS ORDERED: FLU QUADRIvalent (5+ YOA) 2019-2020 (AFLURIA) 0.5 ML IM ONE (09:00)
--- NOTE | 2019-08-03 09:17 | Physical Therapy Daily Note ---
PT Daily Note-Current Subjective Pt laying Supine in bed upon arrival. Pt agrees to PT/OT co-treat for showering and standing balance. Pain Numeric Pain Scale: 7 Location: Lower Location Body Site: Back Pain Description: Ache, Tightness Mental Status Patient Orientation: Person, Place, Situation Transfers SCALE: Activities may be completed with or without assistive devices. 3-Yvwxxhynwa-qpuvqdw completes the activity by him/herself with no assistance from a helper. 5-Set-up or Clean-up Assistance-helper sets up or cleans up; patient completes activity. [place] assists only prior to or following the activity. 4-Supervision or Touching Assistance-helper provides verbal cues and/or touching/steadying and/or contact guard assistance as patient completes activity. Assistance may be provided throughout the activity or intermittently. 3-Partial/Moderate Assistance-helper does LESS THAN HALF the effort. [place] lifts, holds or supports trunk or limbs, but provides less than half the effort. 2-Substantial/Maximal Assistance-helper does MORE THAN HALF the effort. [place] lifts or holds trunk or limbs and provides more than half the effort. 1-Cafzxdwxb-wrrxia does ALL the effort. Patient does none of the effort to complete the activity. Or, the assistance of 2 or more helpers is required for the patient to complete the activity. If activity was not attempted, code reason: 7-Patient Refused. 9-Not Applicable-not attempted and the patient did not perform the activity before the current illness, exacerbation or injury. 10-Not Attempted due to Environmental Limitations-(lack of equipment, weather restraints, etc.). 88-Not Attempted due to Medical Conditions or Safety Concerns. Roll Left to Right (QC): 4 Sit to Lying (QC): 4 Sit to Stand (QC): 1 Chair/Gde-vb-Hvykz Xfer(QC): 4 Bed to/from Chair: 4 Weight Bearing Right Lower Extremity: Right Weight Bearing/Tolerated Left Lower Extremity: Left Weight Bearing/Tolerated Wheelchair Training Does the Pt Use a Wheelchair?: Yes Type of Wheelchair: Manual Exercises Seated Therapy Exercises: Ankle pumps, Long arc quads, Hip flexion, Kicking activity Seated Reps: 20 (AAROM for R LE) Treatments Pt transfers from bed to W/C then to shower bench both via Slide Board. Pt is able to don/doff clothes with assistance from PT to stand and OT to don/doff. Pt showers with assistance from OT for area he cannot reach like back & sacral. After drying and dressing, Pt returns to W/C via Slide Board. Pt keller hair and able to put dentures in mouth. Pt then eats as OT finishes clean up then departs. PT stays with pt to complete Seated EX in W/C. Pt resting in W/C with all needs met at end of tx, call light in hand. PT works on standing balance, transfers and LE strengthening while OT works on ADLs and proper hand placement during transfers. Assessment Current Status: Fair Progress Pt fatigues easily and needs frequent RB for pain and fatigue. Pt is improving with slide board transfers but still needs assistance for placement of board. PT Short Term Goals Short Term Goals Time Frame: Aug 02, 2019 Wheelchair Distance: 150' PT Manager Of Internal Audit Goals Manager Of Internal Audit Goals PT Manager Of Internal Audit Goals Time Frame: Aug 16, 2019 Sit to Lying (QC): 3 (Olu) Lying-Sitting on Side/Bed(QC): 3 (Kofi) Sit to Stand (QC): 1 Roll Left to Right (QC): 3 (Olu) Chair/Dzg-ou-Adkox Xfer(QC): 3 (Olu) Car Transfer (QC): 1 Walk 10 feet (QC): 88 Walk 10ft-Uneven Surface(QC): 88 Walk 50ft with 2 Turns (QC): 88 Walk 150 ft (QC): 88 Wheel 50 feet with 2 turns (QC: 5 1 Step (curb) (QC): 88 4 Steps (QC): 88 12 Steps (QC): 88 Picking up an Object (QC): 88 PT Plan Problem List Problem List: Activity Tolerance, Functional Strength, Transfer Treatment/Plan Treatment Plan: Continue Plan of Care Treatment Plan: Bed Mobility, Concurrent Therapy, Education, Functional Activity Jesus Alberto, Functional Strength, Group Therapy, Gait, Safety, Therapeutic E xercise, Transfers Treatment Duration: Aug 16, 2019 Frequency: At least 5 of 7 days/Wk (IRF) Estimated Hrs Per Day: 1.5 hours per day Patient and/or Family Agrees t: Yes Safety Risks/Education Patient Education: Transfer Techniques, Correct Positioning, Safety Issues Teaching Recipient: Patient Teaching Methods: Discussion Response to Teaching: Verbalize Understanding Time/GCodes Time In: 800 Time Out: 915 Total Billed Treatment Time: 75 Total Billed Treatment 1, FA x4 (60m) & EX (15m) CAITLIN PIERRE BUILDING WRECKER Aug 03, 2019 09:17
--- NOTE | 2019-08-03 10:17 | Speech Therapy Daily Note ---
Speech Daily Progress Note Subjective Date Seen by Provider: Aug 03, 2019 Time Seen by Provider: 00:30 Patient was sitting in his wheelchair when I entered his room. He stated he was tired from taking his shower and doing all the therapy. Objective Patient completed a series of attribute comparisons with 75% given 30% verbal cues and/or repetitions. Assessment Assessment Current Status: Good Progress Treatment Plan Continue Plan of Care Speech Short Term Goals Short Term Goals Short Term Goals 1) Patient will complete memory tasks related to his daily needs at 90% or great er, independently. 2) Patient will complete problem solving tasks related to his daily needs at 90% or greater, independently. 3) Patient will complete safety awareness tasks related to his daily needs at 90% or greater, independently. Speech Senior Living Goals Gas Engine Operator Compressors Goals Patient will improve cognitive-communication necessary for safety and daily living tasks with minimal assist. Speech-Plan Patient/Family Goals Patient/Family Goals: Patient plans on returning home or temporarily living with his [facility]. Treatment Plan Speech Therapy Treatment Plan: Continue Plan of Care Patient is progressing on all ST goals. Treatment Duration: Aug 05, 2019 Frequency: 5 times per week Estimated Hrs Per Day: .5 hour per day Rehab Potential: Fair Barriers to Learning: Patient has cognitive deficits Pt/Family Agrees to Plan: Yes Safety Risks/Education Teaching Recipient: Patient Teaching Methods: Demonstration, Discussion Response to Teaching: Verbalize Understanding, Return Demonstration Education Topics Provided: Continued safety within his room. Time Speech Therapy Time In: 09:30 Speech Therapy Time Out: 10:00 Total Billed Time: 30 Billed Treatment Time 1, PATRICIA Rae Aug 03, 2019 10:17
--- NOTE | 2019-08-03 10:42 | Occupational Ther Daily Note ---
OT Current Status-Daily Note Subjective Pt in bed, agrees to therapy. Pt reports 7/10 back pain. ADL-Treatment Pt would like to shower this morning. Supine to sit with min assist. Pt requires assist to place sliding board, but is then able to transfer to w/c with CGA. To restroom via w/c. Transfer to shower bench with sliding board with CGA. Pt requires assist for placement and adjustment of sliding board during transfer. Doff shirt and socks without assist. Pt required assist x2 to stand and doff Depends. Seated bathing completed with increased time. Upper body bathing completed with SBA. Pt able to wash upper legs and janna area. Used long handled sponge to wash feet. Pt required assist x2 to wash buttocks, one to assist with standing and one to assist with hygiene. Don pullover shirt with set up. Pt donned socks with SBA and increased time. Pt required assist to thread bilateral LE into Depends and pants. Assist x2 required to stand and complete pant hike. Pt fatigues quickly with standing and mobility and requires rest breaks. Transfer back to w/c with slidind board. Pt has some difficulty secondary to uneven surface, but is able to complete transfer with CGA. Pt combed hair with set up. Pt sitting in w/c with PT present after session. Co-treat with PT secondary to impaired balance, strength, activity tolerance, and need for skilled clinicians. OT focusing on ADL completion and safety. PT focusing on balance, standing and transfers. Therapy Code Descriptions/Definitions Functional [place] Measure: 0=Not Assessed/NA 4=Minimal Assistance 1=Total Assistance 5=Supervision or Setup 2=Maximal Assistance 6=Modified [place] 3=Moderate Assistance 7=Complete IndependenceSCALE: Activities may be completed with or without assistive devices. 7-Ksqmdivfda-wpuwkpw completes the activity by him/herself with no assistance from a helper. 5-Set-up or Clean-up Assistance-helper sets up or cleans up; patient completes activity. [place] assists only prior to or following the activity. 4-Supervision or Touching Assistance-helper provides verbal cues and/or touching/steadying and/or contact guard assistance as patient completes activity. Assistance may be provided throughout the activity or intermittently. 3-Partial/Moderate Assistance-helper does LESS THAN HALF the effort. [place] lifts, holds or supports trunk or limbs, but provides less than half the effort. 2-Substantial/Maximal Assistance-helper does MORE THAN HALF the effort. [place] lifts or holds trunk or limbs and provides more than half the effort. 1-Jrtheiarw-mvbzws does ALL the effort. Patient does none of the effort to complete the activity. Or, the assistance of 2 or more helpers is required for the patient to complete the activity. If activity was not attempted, code reason: 7-Patient Refused. 9-Not Applicable-not attempted and the patient did not perform the activity before the current illness, exacerbation or injury. 10-Not Attempted due to Environmental Limitations-(lack of equipment, weather restraints, etc.). 88-Not Attempted due to Medical Conditions or Safety Concerns. Shower/Bathe Self (QC): 1 (assist x2) Upper Body Dressing (QC): 5 Lower Body Dressing (QC): 1 Putting On/ taking off footwear QC: 5 OT Short Term Goals Short Term Goals Lower Body Dressing(FIM): 3 Toilet/Commode Transfer(FIM): 3 Additional Short Term Goals: 1-Demonstrate ADL Tasks, 2-Verbalize Unde rstanding, 3-ImproveStrength/Jesus Alberto 1=Demonstrate adherence to instructed precautions during ADL tasks. 2=Patient will verbalize/demonstrate understanding of assistive devices/modifications for ADL. 3=Patient will improve strength/tolerance for activity to enable patient to perform ADL's. OT Custodial Goals Air Conditioning Unit Tester Goals Eating (QC): 6 Oral Hygiene (QC): 6 Shower/Bathe Self (QC): 6 Upper Body Dressing (QC): 6 Lower Body Dressing (QC): 5 On/Off Footwear (QC): 6 Toileting Hygiene (QC): 5 Toilet/Commode Transfer (QC): 5 Additional Goals: 1-Demonstrate ADL Tasks, 2-Verbalize Understanding, 3- ImproveStrength/Jesus Alberto 1=Demonstrate adherence to instructed precautions during ADL tasks. 2=Patient will verbalize/demonstrate understanding of assistive devices/modifications for ADL. 3=Patient will improve strength/tolerance for activity to enable patient to perform ADL's. OT Education/Plan Discharge Recommendations Plan/Recommendations: Continue POC Treatment Plan/Plan of Care Patient would benefit from OT for education, treatment and training to promote independence in ADL's, mobility, safety and/or upper extremity function for ADL's. Plan of Care: ADL Retraining, Caregiver Training, Concurrent Therapy, Functional Mobility, Group Exercise/Act as Ind, UE Funct Exercise/Act Treatment Duration: Jul 27, 2019 Frequency: At least 5 of 7 days/Wk (IRF) Estimated Hrs Per Day: 1.5 hours per day Agreement: Yes Rehab Potential: Fair Time/GCodes Start Time: 08:00 Stop Time: 09:00 Total Time Billed (hr/min): 60 Billed Treatment Time 1 visit, ADLx4(60minutes) Co-treat with PT LISANDRO STONE OT Aug 03, 2019 10:42
[2019-08-03] MEDS: CYCLOBENZAPRINE 10 MG (FLEXERIL) TAB PO PRN ×2 (11:16→20:33)
--- NOTE | 2019-08-03 11:19 | NUR ---
RD FOLLOW-UP PMHx: CAD, HTN, SD, chronic constipation PT INTERACTION: Pt was awake and pleasant during follow-up. Pt states current appetite is poor. Note pt appears to be eating well, per chart review feeding assessment. Pt states no issues with n/v/c/d at this time, and last BM was 08/03. ABNORMAL NUTRITION-RELATED LAB VALUES: BUN 27 (H); glu 119 (H); Pro 5.8 (L); Ca 8.2 (L) Est. kcal needs: 3120-0442 kcal (25-30 kcal/kg) Est. Pro needs: 67-84 g Pro (0.8-1.0 g Pro/kg) PES STATEMENT: No nutritional diagnosis at this time. INTERVENTION: Continue with current diet order of regular diet. MONITOR/EVALUATE: PO Intake; Plan of Care; Weight Status; Hydration Status; Lab Values Efe Mendez, MS, RD, LD [phone]
--- NOTE | 2019-08-03 11:52 | Occupational Ther Daily Note ---
OT Current Status-Daily Note Subjective Pt in bed, states he is having back pain, but is agreeable to bed level activity. ADL-Treatment Therapy Code Descriptions/Definitions Functional [place] Measure: 0=Not Assessed/NA 4=Minimal Assistance 1=Total Assistance 5=Supervision or Setup 2=Maximal Assistance 6=Modified [place] 3=Moderate Assistance 7=Complete IndependenceSCALE: Activities may be completed with or without assistive devices. 8-Fvebnntnkp-yobmmjd completes the activity by him/herself with no assistance from a helper. 5-Set-up or Clean-up Assistance-helper sets up or cleans up; patient completes activity. [place] assists only prior to or following the activity. 4-Supervision or Touching Assistance-helper provides verbal cues and/or touching/steadying and/or contact guard assistance as patient completes activity. Assistance may be provided throughout the activity or intermittently. 3-Partial/Moderate Assistance-helper does LESS THAN HALF the effort. [place] lifts, holds or supports trunk or limbs, but provides less than half the effort. 2-Substantial/Maximal Assistance-helper does MORE THAN HALF the effort. [place] lifts or holds trunk or limbs and provides more than half the effort. 9-Mzmzbbyxl-ggfbgd does ALL the effort. Patient does none of the effort to complete the activity. Or, the assistance of 2 or more helpers is required for the patient to complete the activity. If activity was not attempted, code reason: 7-Patient Refused. 9-Not Applicable-not attempted and the patient did not perform the activity before the current illness, exacerbation or injury. 10-Not Attempted due to Environmental Limitations-(lack of equipment, weather restraints, etc.). 88-Not Attempted due to Medical Conditions or Safety Concerns. Other Treatment Pt completed graded clothespin activity with bilateral UE to promote reaching, strength, and coordination/manipulation skills. Pt completed task with increased time and rest breaks as needed. Assisted pt to reposition in bed. Pt resting in bed with needs met after session. OT Short Term Goals Short Term Goals Lower Body Dressing(FIM): 3 Toilet/Commode Transfer(FIM): 3 Additional Short Term Goals: 1-Demonstrate ADL Tasks, 2-Verbalize Understanding, 3-ImproveStrength/Jesus Alberto 1=Demonstrate adherence to instructed precautions during ADL tasks. 2=Patient will verbalize/demonstrate understanding of assistive devices/modifications for ADL. 3=Patient will improve strength/tolerance for activity to enable patient to perform ADL's. OT Mcc Goals Mcc Goals Eating (QC): 6 Oral Hygiene (QC): 6 Shower/Bathe Self (QC): 6 Upper Body Dressing (QC): 6 Lower Body Dressing (QC): 5 On/Off Footwear (QC): 6 Toileting Hygiene (QC): 5 Toilet/Commode Transfer (QC): 5 Additional Goals: 1-Demonstrate ADL Tasks, 2-Verbalize Understanding, 3-ImproveStrength/Jesus Alberto 1=Demonstrate adherence to instructed precautions during ADL tasks. 2=Patient will verbalize/demonstrate understanding of assistive devices/modifications for ADL. 3=Patient will improve strength/tolerance for activity to enable patient to perform ADL's. OT Education/Plan Discharge Recommendations Plan/Recommendations: Continue POC Treatment Plan/Plan of Care Patient would benefit from OT for education, treatment and training to promote independence in ADL's, mobility, safety and/or upper extremity function for ADL's. Plan of Care: ADL Retraining, Caregiver Training, Concurrent Therapy, Functional Mobility, Group Exercise/Act as Ind, UE Funct Exercise/Act Treatment Duration: Jul 27, 2019 Frequency: At least 5 of 7 days/Wk (IRF) Estimated Hrs Per Day: 1.5 hours per day Agreement: Yes Rehab Potential: Fair Time/GCodes Start Time: 11:35 Stop Time: 11:50 Total Time Billed (hr/min): 15 Billed Treatment Time 1 visit, EX(15minutes) LISANDRO STONE OT Aug 03, 2019 11:52
[2019-08-03 17:07] VITALS: BP 96/63
[2019-08-03] MEDS: DONEPEZIL 10 MG (ARICEPT) TAB PO SCH (20:33)
[2019-08-03] MEDS: risperiDONE 0.25 MG (RisperDAL) TAB PO SCH (20:33)
[2019-08-03] MEDS: TERAZOSIN 5 MG (HYTRIN) CAPSULE PO SCH (20:33)
[2019-08-04 05:20] VITALS: BP 99/65
[2019-08-04] MEDS: LACTOBACILLUS ACIDOPHILUS (PROBIOTIC) CAPSULE PO SCH ×3 (05:55→18:13)
[2019-08-04] MEDS: PANTOPRAZOLE 40 MG (PROTONIX) TAB PO SCH (05:55)
[2019-08-04] MEDS: RT-ALBUTEROL/IPRATROPIUM 3 ML (DUONEB) VIAL INH SCH ×4 (07:27→19:15)
--- NOTE | 2019-08-04 08:16 | PM&R Progress Note ---
Subjective HPI/CC On Admission Date Seen by Provider: Aug 04, 2019 Time Seen by Provider: 08:30 CC: Cervical spine injury non-traumatic HPI: This is a 78yoWM who presented to the Hospital with significant compromise in function, was found to have significant cervical spine stenosis causing generalized weakness globally, that was complicated with delirium post- operatively in addition to a UTI diagnosis. Pt previously doctored with Dr. Tyler Danielson and did not see a regular four roll calender operator although he has had Bypass surgery and has known CAD. Pt was doing well but had a lengthy acute care course and is in need of significant rehabilitation, prior to returning home. He seems to be very depressed, very tearful when I meet him and reports that he is about to turn 79 next month. I have tried to reassure him and I have put in a behavioral health consult in for him because of obvious tearfulness and overwhelmed feeling and loss of independence that he will need to be aggressively treated for in order to return home safely. Previously he used a walker for the past 6 months prior to admission, had lumbar spine surgery then was discharged home and home PT Collette Ramos evaluated the Pt to have such se higinio weakness that he was total care so he was sent to the ER for workup and from there thing progressed into cervical spine MRI showing severe stenosis and Dr. Bhatt performed surgery with good results but was so severe it was a dural tear during the surgery and he has become quite debilitated. He is urinating well, hasn't had a BM in several days so will need to work on that when he is admitted into the inpatient rehab unit. Overall he will be aggressively treated in order to re-gain his independence in order to return home. Subjective/Events-last exam Pt doing pretty well. BP is still a little low so holding Coreg. No major issues. Bowels last move too loose yesterday. Overall having no new concerns or complaints. Check meds and labs Reviewed therapy notes Conferred with grill attendant of Systems Musculoskeletal: back pain Neurological: Weakness, Numbness, Incoordination Objective Exam Vital Signs Vital Signs Date Time Temp Pulse Resp B/P (MAP) Pulse Ox O2 Delivery O2 Flow Rate FiO2 08/04/19 17:51 37.6 75 20 97/66 (76) 95 Room Air Capillary Refill : Less Than 3 Seconds General Appearance: No Apparent Distress, WD/WN, Chronically ill HEENT: PERRL/EOMI, Normal ENT Inspection, Pharynx Normal, Moist Mucous Membranes Neck: Full Range of Motion, Normal Inspection, Non Tender, Supple Respiratory: Lungs Clear, Normal Breath Sounds, No Respiratory Distress Cardiovascular: Regular Rate, Rhythm, No JVD Gastrointestinal: Normal Bowel Sounds, No Organomegaly, No Pulsatile Mass, Non Tender, Soft Back: Normal Inspection, No CVA Tenderness, Decreased Range of Motion Extremity: Normal Capillary Refill, Normal Inspection, Normal Range of Motion, Non Tender, No Calf Tenderness, No Pedal Edema Neurologic/Psychiatric: Alert, Oriented x3, Normal Mood/Affect, contract engineer II-XII Norm as Tested, Motor Weakness (generalized all extremities 3/5) Skin: Normal Color, Warm/Dry Lymphatic: No Adenopathy Results/Procedures Lab Patient resulted labs reviewed. FIM Transfers Therapy Code Descriptions/Definitions Functional [place] Measure: 0=Not Assessed/NA 4=Minimal Assistance 1=Total Assistance 5=Supervision or Setup 2=Maximal Assistance 6=Modified [place] 3=Moderate Assistance 7=Complete IndependenceSCALE: Activities may be completed with or without assistive devices. 6-Cteqxhcnaa-ppxylza completes the activity by him/herself with no assistance from a helper. 5-Set-up or Clean-up Assistance-helper sets up or cleans up; patient completes activity. [place] assists only prior to or following the activity. 4-Supervision or Touching Assistance-helper provides verbal cues and/or touching/steadying and/or contact guard assistance as patient completes activity. Assistance may be provided throughout the activity or intermittently. 3-Partial/Moderate Assistance-helper does LESS THAN HALF the effort. [place] lifts, holds or supports trunk or limbs, but provides less than half the effort. 2-Substantial/Maximal Assistance-helper does MORE THAN HALF the effort. [place] lifts or holds trunk or limbs and provides more than half the effort. 1-Qsosqjyep-yudutt does ALL the effort. Patient does none of the effort to complete the activity. Or, the assistance of 2 or more helpers is required for the patient to complete the activity. If activity was not attempted, code reason: 7-Patient Refused. 9-Not Applicable-not attempted and the patient did not perform the activity before the current illness, exacerbation or injury. 10-Not Attempted due to Environmental Limitations-(lack of equipment, weather restraints, etc.). 88-Not Attempted due to Medical Conditions or Safety Concerns. Transfers (B, C, W/C) (FIM): 4 Roll Left to Right (QC): 4 Sit to Lying (QC): 4 Sit to Stand (QC): 1 Chair/Hlb-em-Khnzz Xfer(QC): 4 Bed to/from Chair: 4 Car Transfer (QC): 1 Gait Training Does the Patient Walk?: No and Walking Goal NOT indicated Gait (FIM): 5 Walk 10 feet (QC): 5 Walk 50 ft with 2 Turns(QC): 5 Walk 150 ft (QC): 5 Walking 10ft/uneven surface-QC: 88 Gait Persons Needed: 1 Gait Assistive Device: FWW Wheelchair Training Does the Pt Use a Wheelchair?: Yes Wheelchair (FIM): 1 Wheelchair Distance: 3=150 ft Distance: 150' Wheel 50 ft with 2 turns (QC): 5 Wheel 150 ft (QC): 5 Type of Wheelchair: Manual ADL-Treatment Eating (QC): 6 Groomin (Pt brushed hair at bed level, he was able to gather hair brush from side table and complete task without assistance.) Oral Hygiene (QC): 6 (Pt washed dentures and put them in seated at sink in w/c.) Bathing Location: L Arm, R Arm, L Upper Leg, R Upper Leg, L Lower Leg (including foot), R Lower Leg (including foot), Chest, Abdomen, Perineal Area Shower/Bathe Self (QC): 1 (assist x2) Upper Body Dressing (QC): 5 Lower Body Dressing (QC): 1 On/Off Footwear (QC): 2 (OT educated pt on using sock aid to don socks. OT assisted pt with doffing socks, & demo'd use of sock aid. Pt able to don sock on left foot using sock aid, required assistance with right foot secondary to dressing on heel of foot) Toileting Hygiene (QC): 1 (Assist x2, pt stood with PT from [facility] as OT performed hygine and clothing management for pt.) Toilet Transfer (QC): 1 (Pt able to perform SB transfer from EOB to drop arm commode with assist for hand placement and assist scooting across SB. Pt required x2 assist for squat pivot transfer from commode to recliner.) Assessment/Plan Assessment and Plan Assess & Plan/Chief Complaint Assessment: Spinal cord trauma from severe stenosis Debility CAD Delirium s/p UTI completed treatment Constipation now resolved 07/28/19 HTN HLP Cognitive deficit SLUMS Depression Plan: Monitor urinary system IRF protocol Increase strength with IRF protocols BM regimen to hold due to loose stools Started antidepressant Monitor BP DC Decadron Thursday (1) Spinal cord injury (2) Generalized Weakness (3) Cervical spinal stenosis Status: Acute (4) Neuroforaminal stenosis of spine Status: Acute (5) Essential (primary) hypertension Status: Chronic (6) Lumbar spinal stenosis Status: Acute (7) Slipped intervertebral disc Status: Acute (8) Delirium Status: Acute (9) Incidental durotomy Status: Acute (10) CAD (coronary artery disease) Status: Chronic YANETH REEDER DO Aug 04, 2019 08:16
--- NOTE | 2019-08-04 08:17 | Cardiology Progress Note ---
Subjective Date Seen by Provider: Aug 04, 2019 Time Seen by Provider: 08:15 Subjective/Events-last exam Patient is sitting up in bed, back pain improved today. Denies any chest pain or dyspnea. Continues to be hypotensive Review of Systems General: No Chills, No Night Sweats; Fatigue; No Malaise, No Appetite, No Other HEENT: No Head Aches, No Visual Changes, No Eye Pain, No Ear Pain, No Dysphasia, No Sinus Congestion, No Post Nasal Drip, No Sore Throat, No Other Pulmonary: No Dyspnea, No Cough, No Pleuritic Chest Pain, No Other Cardiovascular: No: Chest Pain, Palpitations, Orthopnea, Paroxysmal Noc. Dyspnea, Edema, Lt Headedness, Other Objective-Cardiology Exam Last Set of Vital Signs Vital Signs 08/04/19 08/04/19 05:20 07:27 Temp 36.4 Pulse 75 Resp 18 B/P (MAP) 99/65 (76) Pulse Ox 95 O2 Delivery Room Air Capillary Refill : Less Than 3 Seconds I&O Intake and Output 08/04/19 00:00 Intake Total 975 ml Output Total 350 ml Balance 625 ml Intake Oral 975 ml Output Urine Total 350 ml # Urine Diapers 2 # Bowel Movements 1 General: Alert, Oriented X3, Cooperative, Mild Distress HEENT: Atraumatic, EOMI Neck: Supple, No JVD, No Thyromegaly Lungs: Clear to Auscultation, Normal Air Movement Heart: Regular Rate, Normal S1, Normal S2, No Murmurs Abdomen: Normal Bowel Sounds, Soft, No Tenderness, No Hepatosplenomegaly, No Masses Extremities: No Cyanosis, Normal Pulses Skin: No Rashes, No Breakdown, No Significant Lesion Neuro: Normal Speech, Normal Tone Psych/Mental Status: Mental Status NL A/P-Cardiology Admission Diagnosis Spinal Stenosis Chest pain CAD HTN Assessment/Plan Spinal stenosis, slipped disc, status post L2-3 laminectomy done on July 20, 2019, back pain continues to improve. Chest pain, chronic stable angina, no further episodes of chest pain reported. Continue to monitor Coronary artery disease, history of CABG, multiple intervention the past, recent cardiac catheterization with drug-eluting stent deployment to the vein graft to the diagonal artery, had a patent GRACE to LAD with patent stent beyond the anastomosis in the LAD, small vessel disease otherwise done by Dr. Perez in [facility], currently back on Plavix. Continue to monitor Hypertension, continues to be hypotensive. Norvasc was discontinued, decreased coreg and continue losartan and monitor Sinus bradycardia. Secondary to medication, continue to monitor heart rate Hyperlipidemia, maintained on statin Generalized weakness, lower and upper extremity weakness, cervical spinal stenosis with slipped disc, s/p L 2-[address] Bhatt earlier this morning. Dementia Patient was seen and evaluated with Jill, examination performed, management plan was discussed, agree with the current scribed note, I made few changes to the note using Italic font Patient is sitting in a wheel chair, feeling better Medication adjusted as described above, monitor blood pressure Clinical Quality Measures DVT/VTE Risk/Contraindication: Risk Factor Score Per Nursin RFS Level Per Nursing on Admit: 4+=Very High JILL FULLER Aug 04, 2019 08:17 CHRISTIANO DAVIS MD Aug 04, 2019 08:59
[2019-08-04] MEDS: LORATADINE (CLARITIN) 10 MG TAB PO SCH (08:51)
[2019-08-04] MEDS: CLOPIDOGREL 75 MG (PLAVIX) TABLET PO SCH (08:51)
[2019-08-04] MEDS: DULoxetine 30 MG (CYMBALTA) CAP PO SCH (08:52)
[2019-08-04] MEDS: DOCUSATE CALCIUM 240 MG (SURFAK) CAP PO SCH ×2 (08:52→21:36)
[2019-08-04] MEDS: TOLTERODINE LA 4 MG (DETROL) CAP PO SCH (08:52)
[2019-08-04] MEDS: LOSARTAN 25 MG (COZAAR) TAB PO SCH (08:52)
[2019-08-04] MEDS: ASPIRIN E.C. 81 MG (ECOTRIN) TAB PO SCH (08:52)
[2019-08-04] MEDS: CARVEDILOL 3.125 MG (COREG) TABLET PO SCH ×2 (08:53→23:11)
[2019-08-04] MEDS: SENNA W/DOCUSATE (SENOKOT S) TABLET PO SCH ×2 (08:53→21:53)
[2019-08-04] MEDS: POLYETHYLENE GLYCOL 17 GM (MIRALAX) PACK PO SCH ×2 (09:03→21:34)
[2019-08-04] MEDS: BISACODYL 10 MG SUPP (DULCOLAX) PR SCH ×2 (09:03→21:35)
--- NOTE | 2019-08-04 09:38 | Physical Therapy Daily Note ---
PT Daily Note-Current Subjective Pt laying Supine in bed upon arrival. Pt agrees to PT/OT co-treat. Pain Numeric Pain Scale: 7 Location: Incisional, Lower Location Body Site: Back Pain Description: Ache, Tightness Mental Status Patient Orientation: Person, Place, Situation Transfers SCALE: Activities may be completed with or without assistive devices. 1-Wopmticywz-duzlqae completes the activity by him/herself with no assistance from a helper. 5-Set-up or Clean-up Assistance-helper sets up or cleans up; patient completes activity. [place] assists only prior to or following the activity. 4-Supervision or Touching Assistance-helper provides verbal cues and/or t ouching/steadying and/or contact guard assistance as patient completes activity. Assistance may be provided throughout the activity or intermittently. 3-Partial/Moderate Assistance-helper does LESS THAN HALF the effort. [place] lifts, holds or supports trunk or limbs, but provides less than half the effort. 2-Substantial/Maximal Assistance-helper does MORE THAN HALF the effort. [place] lifts or holds trunk or limbs and provides more than half the effort. 2-Guzkwzdfx-gdzomn does ALL the effort. Patient does none of the effort to complete the activity. Or, the assistance of 2 or more helpers is required for the patient to complete the activity. If activity was not attempted, code reason: 7-Patient Refused. 9-Not Applicable-not attempted and the patient did not perform the activity before the current illness, exacerbation or injury. 10-Not Attempted due to Environmental Limitations-(lack of equipment, weather restraints, etc.). 88-Not Attempted due to Medical Conditions or Safety Concerns. Roll Left to Right (QC): 4 Sit to Lying (QC): 4 Sit to Stand (QC): 1 Chair/Xvn-no-Souqh Xfer(QC): 4 Weight Bearing Right Lower Extremity: Right Weight Bearing/Tolerated Left Lower Extremity: Left Weight Bearing/Tolerated Exercises Supine Ex: Ankle pumps, Quad Set, Hip abd/add Treatments Co-treat with PT, need for skilled clinicians for impaired balance, strength, activity tolerance. OT focusing on ADL completion, UE strengthening and safety. PT focusing on balance, LE strengthening, standing and transfers. Pt incontinent of bladder. Pt required assistance to initiate pants over feet then pt able to pull up LE's while in supine. Assist to roll side to side and hold position while attempting to hike pants over hips. Assist given to finish hiking pants over hips. Supine to EOB using bed rails and HOB slightly raised. Sat EOB independently. Assist to position w/c and slide board for transfers. Pt is SBA to CGA for sliding board transfers. Completed grooming at sink sitting in w/c. Pt propelled w/c to therapy gym then transferred with CGA to therapy mat. Worked on standing, by 'perching' on edge of high/low mat table. Pt only able to stand 3x's ~15 sec each. OT assisted with UE placement during standing. Pt then laid down on mat table to complete supine exercises for UE's using dowel katya with 1# wt attached and Supine LE EX. After therapy, pt requested to lay in bed due to increased back pain. Call light/phone in reach. All needs met in room. Assessment Current Status: Fair Progress Pt fatigues easier and reports increased pain quicker than previous tx. Nursing notified. Pt does not tolerate tx well. PT Short Term Goals Short Term Goals Time Frame: Aug 02, 2019 Wheelchair Distance: 150' PT Retirement Goals Retirement Goals PT Retirement Goals Time Frame: Aug 16, 2019 Sit to Lying (QC): 3 (Olu) Lying-Sitting on Side/Bed(QC): 3 (Kofi) Sit to Stand (QC): 1 Roll Left to Right (QC): 3 (Olu) Chair/Wrb-sy-Qrksk Xfer(QC): 3 (Olu) Car Transfer (QC): 1 Walk 10 feet (QC): 88 Walk 10ft-Uneven Surface(QC): 88 Walk 50ft with 2 Turns (QC): 88 Walk 150 ft (QC): 88 Wheel 50 feet with 2 turns (QC: 5 1 Step (curb) (QC): 88 4 Steps (QC): 88 12 Steps (QC): 88 Picking up an Object (QC): 88 PT Plan Problem List Problem List: Activity Tolerance, Functional Strength, Safety, Balance, Gait, Transfer, Bed Mobility Treatment/Plan Treatment Plan: Continue Plan of Care Treatment Plan: Bed Mobility, Concurrent Therapy, Education, Functional Activity Jesus Alberto, Functional Strength, Group Therapy, Gait, Safety, Therapeutic Exercise, Transfers Treatment Duration: Aug 16, 2019 Frequency: At least 5 of 7 days/Wk (IRF) Estimated Hrs Per Day: 1.5 hours per day Patient and/or Family Agrees t: Yes Safety Risks/Education Patient Education: Transfer Techniques, Correct Positioning, W/C Management, Safety Issues Teaching Recipient: Patient Teaching Methods: Discussion Response to Teaching: Verbalize Understanding Time/GCodes Time In: 815 Time Out: 930 Total Billed Treatment Time: 75 Total Billed Treatment 1, WCH (15m), EX (15m) & FA x3 (45m) CAITLIN PIERRE ERP DEVELOPER Aug 04, 2019 09:38
--- NOTE | 2019-08-04 09:40 | Occupational Ther Daily Note ---
OT Current Status-Daily Note Subjective Pt alert, lying in bed. Pt agrees to therapy. Pt c/o back pain, rated 7/10, nrsg brought medication. Mental Status/Objective Patient Orientation: Person, Place, Time, Situation ADL-Treatment Co-treat with PT, need for skilled clinicians for impaired balance, strength, activity tolerance. OT focusing on ADL completion, UE strengthening and safety. PT focusing on balance, LE strengthening, standing and transfers. Pt incontinent of bladder. Pt required assistance to initiate pants over feet then pt able to pull up LE's while in supine. Assist to roll side to side and hold position while attempting to hike pants over hips. Assist given to finish hiking pants over hips. Supine to EOB using bed rails and HOB slightly raised. Sat EOB independently. Assist to position w/c and slide board for transfers. Pt is SBA to CGA for sliding board transfers. Completed grooming at sink sitti ng in w/c. Pt propelled w/c to therapy gym then transferred with CGA to therapy mat. Worked on standing, by 'perching' on edge of high/low mat table. Pt only able to stand 3x's ~15 sec each. OT assisted with UE placement during standing. Pt then laid down on mat table to complete supine exercises for UE's using dowel katya with 1# wt attached. 2 exercises 2 sets 10 reps. After therapy, pt requested to lay in bed due to increased back pain. Call light/phone in reach. All needs met in room. Therapy Code Descriptions/Definitions Functional [place] Measure: 0=Not Assessed/NA 4=Minimal Assistance 1=Total Assistance 5=Supervision or Setup 2=Maximal Assistance 6=Modified [place] 3=Moderate Assistance 7=Complete IndependenceSCALE: Activities may be completed with or without assistive devices. 1-Wqqbevqdkh-scsseit completes the activity by him/herself with no assistance from a helper. 5-Set-up or Clean-up Assistance-helper sets up or cleans up; patient completes activity. [place] assists only prior to or following the activity. 4-Supervision or Touching Assistance-helper provides verbal cues and/or touching/steadying and/or contact guard assistance as patient completes activity. Assistance may be provided throughout the activity or intermittently. 3-Partial/Moderate Assistance-helper does LESS THAN HALF the effort. [place] lifts, holds or supports trunk or limbs, but provides less than half the effort. 2-Substantial/Maximal Assistance-helper does MORE THAN HALF the effort. [place] lifts or holds trunk or limbs and provides more than half the effort. 8-Jqlgvjkwf-fgknng does ALL the effort. Patient does none of the effort to complete the activity. Or, the assistance of 2 or more helpers is required for the patient to complete the activity. If activity was not attempted, code reason: 7-Patient Refused. 9-Not Applicable-not attempted and the patient did not perform the activity before the current illness, exacerbation or injury. 10-Not Attempted due to Environmental Limitations-(lack of equipment, weather restraints, etc.). 88-Not Attempted due to Medical Conditions or Safety Concerns. Lower Body Dressing (QC): 2 OT Short Term Goals Short Term Goals Lower Body Dressing(FIM): 3 Toilet/Commode Transfer(FIM): 3 Additional Short Term Goals: 1-Demonstrate ADL Tasks, 2-Verbalize Understanding, 3-ImproveStrength/Jesus Alberto 1=Demonstrate adherence to instructed precautions during ADL tasks. 2=Patient will verbalize/demonstrate understanding of assistive devices/modifications for ADL. 3=Patient will improve strength/tolerance for activity to enable patient to perform ADL's. OT Fci Goals Fci Goals Eating (QC): 6 Oral Hygiene (QC): 6 Shower/Bathe Self (QC): 6 Upper Body Dressing (QC): 6 Lower Body Dressing (QC): 5 On/Off Footwear (QC): 6 Toileting Hygiene (QC): 5 Toilet/Commode Transfer (QC): 5 Additional Goals: 1-Demonstrate ADL Tasks, 2-Verbalize Understanding, 3- ImproveStrength/Jesus Alberto 1=Demonstrate adherence to instructed precautions during ADL tasks. 2=Patient will verbalize/demonstrate understanding of assistive devices/modifications for ADL. 3=Patient will improve strength/tolerance for activity to enable patient to perform ADL's. OT Education/Plan Problem List/Assessment Assessment: Decreased Activ Tolerance, Impaired Bed Mobility, Impaired Coordination, Impaired I ADL's, Impaired Self-Care Skills Discharge Recommendations Plan/Recommendations: Continue POC Treatment Plan/Plan of Care Patient would benefit from OT for education, treatment and training to promote independence in ADL's, mobility, safety and/or upper extremity function for ADL's. Plan of Care: ADL Retraining, Caregiver Training, Concurrent Therapy, Functional Mobility, Group Exercise/Act as Ind, UE Funct Exercise/Act Treatment Duration: Jul 27, 2019 Frequency: At least 5 of 7 days/Wk (IRF) Estimated Hrs Per Day: 1.5 hours per day Agreement: Yes Rehab Potential: Fair Time/GCodes Start Time: 08:15 Stop Time: 09:30 Total Time Billed (hr/min): 75 Billed Treatment Time 1 visit-ADL 2 (35 min) EX 3 (40 min) SNEHA GARCIA Aug 04, 2019 09:40
[2019-08-04] MEDS: ACETAMINOPHEN 325 MG TABLET PO PRN (11:00)
--- NOTE | 2019-08-04 11:30 | Speech Therapy Daily Note ---
Speech Daily Progress Note Subjective Date Seen by Provider: Aug 04, 2019 Time Seen by Provider: 00:30 Patient was resting in his bed. C/o great pain again. Had been given pain meds at 9 am but didn't feel as though they were working. Objective Patient completed communication tasks related to his needs with 80% accuracy. Assessment Assessment Current Status: Fair Progress Treatment Plan Continue Plan of Care Speech Short Term Goals Short Term Goals Short Term Goals 1) Patient will complete memory tasks related to his daily needs at 90% or greater, independently. 2) Patient will complete problem solving tasks related to his daily needs at 90% or greater, independently. 3) Patient will complete safety awareness tasks related to his daily needs at 90% or greater, independently. Speech Detention Goals Group Fitness Instructor Goals Patient will improve cognitive-communication necessary for safety and daily living tasks with minimal assist. Speech-Plan Patient/Family Goals Patient/Family Goals: Patient planned on returning home or living temporarily with his [facility] post rehab. Placement to be determined. Treatment Plan Speech Therapy Treatment Plan: Continue Plan of Care Patient continues to have great pain with therapy which is hindering therapy. Treatment Duration: Aug 05, 2019 Frequency: 5 times per week Estimated Hrs Per Day: .5 hour per day Rehab Potential: Fair Barriers to Learning: Patient's cognitive deficits as well as pain level. Pt/Family Agrees to Plan: Yes Safety Risks/Education Teaching Recipient: Patient Teaching Methods: Discussion Response to Teaching: Verbalize Understanding Education Topics Provided: Continued safety and communication of needs. Time Speech Therapy Time In: 09:30 Speech Therapy Time Out: 10:00 Total Billed Time: 30 Billed Treatment Time 1, PATRICIA Rae Aug 04, 2019 11:30
[2019-08-04 13:49] VITALS: BP 134/69
--- NOTE | 2019-08-04 14:35 | NUR ---
Field Education Director follow up: pt said he feels his healing process is like being on a roller coaster, and he often feels "concerned" about his healing process. I normalized feelings, offered empathic listening, and offered to pray. The pt said he felt encouraged after we prayed together.
[2019-08-04] MEDS: CYCLOBENZAPRINE 10 MG (FLEXERIL) TAB PO PRN (15:41)
--- NOTE | 2019-08-04 17:00 | NUR ---
Reviewed weekly Care Team Conference with patient and he was agreeable to information discussed, as well as agreeable to a continued stay with review on August 10. Although patient's primary goal is to either return home alone or to his granddaughter's, the formulation of an alternative plan was discussed. Patient did state he was open to the idea of SNF discharge, if recommended. Will continue to follow for discharge planning.
[2019-08-04 17:51] VITALS: BP 97/66
[2019-08-04] MEDS: risperiDONE 0.25 MG (RisperDAL) TAB PO SCH (21:35)
[2019-08-04] MEDS: TERAZOSIN 5 MG (HYTRIN) CAPSULE PO SCH (21:35)
[2019-08-04] MEDS: DONEPEZIL 10 MG (ARICEPT) TAB PO SCH (21:36)
[2019-08-05] MEDS: LACTOBACILLUS ACIDOPHILUS (PROBIOTIC) CAPSULE PO SCH ×3 (05:54→18:00)
[2019-08-05] MEDS: PANTOPRAZOLE 40 MG (PROTONIX) TAB PO SCH (05:54)
[2019-08-05] MEDS: RT-ALBUTEROL/IPRATROPIUM 3 ML (DUONEB) VIAL INH SCH (06:39)
[2019-08-05 06:47] VITALS: BP 106/68
--- NOTE | 2019-08-05 08:14 | PM&R Progress Note ---
Subjective HPI/CC On Admission Date Seen by Provider: Aug 05, 2019 Time Seen by Provider: 08:30 CC: Cervical spine injury non-traumatic HPI: This is a 78yoWM who presented to the Hospital with significant compromise in function, was found to have significant cervical spine stenosis causing generalized weakness globally, that was complicated with delirium post- operatively in addition to a UTI diagnosis. Pt previously doctored with Dr. Tyler Danielson and did not see a regular front end wheel loader operator although he has had Bypass surgery and has known CAD. Pt was doing well but had a lengthy acute care course and is in need of significant rehabilitation, prior to returning home. He seems to be very depressed, very tearful when I meet him and reports that he is about to turn 79 next month. I have tried to reassure him and I have put in a behavioral health consult in for him because of obvious tearfulness and overwhelmed feeling and loss of independence that he will need to be aggressively treated for in order to return home safely. Previously he used a walker for the past 6 months prior to admission, had lumbar spine surgery then was discharged home and home PT Collette Ramos evaluated the Pt to have such se higinio weakness that he was total care so he was sent to the ER for workup and from there thing progressed into cervical spine MRI showing severe stenosis and Dr. Bhatt performed surgery with good results but was so severe it was a dural tear during the surgery and he has become quite debilitated. He is urinating well, hasn't had a BM in several days so will need to work on that when he is admitted into the inpatient rehab unit. Overall he will be aggressively treated in order to re-gain his independence in order to return home. Subjective/Events-last exam Decreased motivation due to pain I told him he will need to work through a bit of the pain to stretch his muscles out Bowel and bladder incontinence no change Pt appears to be more and more of a fci placement pt Eating a drinking a little better BP still an issue Check meds and labs Reviewed therapy notes Conferred with certified control systems technician of Systems Musculoskeletal: back pain Neurological: Weakness, Numbness, Incoordination Objective Exam Vital Signs Vital Signs Date Time Temp Pulse Resp B/P (MAP) Pulse Ox O2 Delivery O2 Flow Rate FiO2 08/05/19 20:53 94 Room Air 08/05/19 20:48 81 92/60 (71) 08/05/19 18:11 37.0 18 Capillary Refill : Less Than 3 Seconds General Appearance: No Apparent Distress, WD/WN, Chronically ill HEENT: PERRL/EOMI, Normal ENT Inspection, Pharynx Normal, Moist Mucous Membranes Neck: Full Range of Motion, Normal Inspection, Non Tender, Supple Respiratory: Lungs Clear, Normal Breath Sounds, No Respiratory Distress Cardiovascular: Regular Rate, Rhythm, No JVD Gastrointestinal: Normal Bowel Sounds, No Organomegaly, No Pulsatile Mass, Non Tender, Soft Back: Normal Inspection, No CVA Tenderness, Decreased Range of Motion Extremity: Normal Capillary Refill, Normal Inspection, Normal Range of Motion, Non Tender, No Calf Tenderness, No Pedal Edema Neurologic/Psychiatric: Alert, Oriented x3, Normal Mood/Affect, client solutions manager II-XII Norm as Tested, Motor Weakness (generalized all extremities 3/5) Skin: Normal Color, Warm/Dry Lymphatic: No Adenopathy Results/Procedures Lab Patient resulted labs reviewed. FIM Transfers Therapy Code Descriptions/Definitions Functional [place] Measure: 0=Not Assessed/NA 4=Minimal Assistance 1=Total Assistance 5=Supervision or Setup 2=Maximal Assistance 6=Modified [place] 3=Moderate Assistance 7=Complete IndependenceSCALE: Activities may be completed with or without assistive devices. 5-Gznnydjzam-aroozcw completes the activity by him/herself with no assistance from a helper. 5-Set-up or Clean-up Assistance-helper sets up or cleans up; patient completes activity. [place] assists only prior to or following the activity. 4-Supervision or Touching Assistance-helper provides verbal cues and/or touching/steadying and/or contact guard assistance as patient completes activity. Assistance may be provided throughout the activity or intermittently. 3-Partial/Moderate Assistance-helper does LESS THAN HALF the effort. [place] lifts, holds or supports trunk or limbs, but provides less than half the effort. 2-Substantial/Maximal Assistance-helper does MORE THAN HALF the effort. [place] lifts or holds trunk or limbs and provides more than half the effort. 2-Dvbourznh-cizmdn does ALL the effort. Patient does none of the effort to comp lete the activity. Or, the assistance of 2 or more helpers is required for the patient to complete the activity. If activity was not attempted, code reason: 7-Patient Refused. 9-Not Applicable-not attempted and the patient did not perform the activity before the current illness, exacerbation or injury. 10-Not Attempted due to Environmental Limitations-(lack of equipment, weather restraints, etc.). 88-Not Attempted due to Medical Conditions or Safety Concerns. Transfers (B, C, W/C) (FIM): 4 Roll Left to Right (QC): 4 Sit to Lying (QC): 4 Sit to Stand (QC): 1 Chair/Ucg-jq-Aseyu Xfer(QC): 4 Bed to/from Chair: 4 Car Transfer (QC): 1 Gait Training Does the Patient Walk?: No and Walking Goal NOT indicated Gait (FIM): 5 Walk 10 feet (QC): 5 Walk 50 ft with 2 Turns(QC): 5 Walk 150 ft (QC): 5 Walking 10ft/uneven surface-QC: 88 Gait Persons Needed: 1 Gait Assistive Device: FWW Wheelchair Training Does the Pt Use a Wheelchair?: Yes Wheelchair (FIM): 1 Wheelchair Distance: 3=150 ft Distance: 150' Wheel 50 ft with 2 turns (QC): 5 Wheel 150 ft (QC): 5 Type of Wheelchair: Manual ADL-Treatment Eating (QC): 6 Groomin (Pt brushed hair at bed level, he was able to gather hair brush from side table and complete task without assistance.) Oral Hygiene (QC): 6 (Pt washed dentures and put them in seated at sink in w/c.) Bathing Location: L Arm, R Arm, L Upper Leg, R Upper Leg, L Lower Leg (including foot), R Lower Leg (including foot), Chest, Abdomen, Perineal Area Shower/Bathe Self (QC): 1 (assist x2) Upper Body Dressing (QC): 5 Lower Body Dressing (QC): 2 On/Off Footwear (QC): 2 (OT educated pt on using sock aid to don socks. OT assisted pt with doffing socks, & demo'd use of sock aid. Pt able to don sock on left foot using sock aid, required assistance with right foot secondary to dressing on heel of foot) Toileting Hygiene (QC): 1 (Assist x2, pt stood with PT from [facility] as OT performed hygine and clothing management for pt.) Toilet Transfer (QC): 1 (Pt able to perform SB transfer from EOB to drop arm commode with assist for hand placement and assist scooting across SB. Pt required x2 assist for squat pivot transfer from commode to recliner.) Assessment/Plan Assessment and Plan Assess & Plan/Chief Complaint Assessment: Spinal cord trauma from severe stenosis Debility CAD Delirium s/p UTI completed treatment Constipation now resolved 07/28/19 HTN HLP Cognitive deficit SLUMS Depression Plan: Monitor urinary system IRF protocol Increase strength with IRF protocols BM regimen to hold due to loose stools Started antidepressant Monitor BP s/p DC steroids (1) Spinal cord injury (2) Generalized Weakness (3) Cervical spinal stenosis Status: Acute (4) Neuroforaminal stenosis of spine Status: Acute (5) Essential (primary) hypertension Status: Chronic (6) Lumbar spinal stenosis Status: Acute (7) Slipped intervertebral disc Status: Acute (8) Delirium Status: Acute (9) Incidental durotomy Status: Acute (10) CAD (coronary artery disease) Status: Chronic YANETH REEDER DO Aug 05, 2019 08:14
[2019-08-05] MEDS: POLYETHYLENE GLYCOL 17 GM (MIRALAX) PACK PO SCH ×2 (09:00→20:50)
[2019-08-05] MEDS: DOCUSATE CALCIUM 240 MG (SURFAK) CAP PO SCH ×2 (09:02→20:51)
[2019-08-05] MEDS: CLOPIDOGREL 75 MG (PLAVIX) TABLET PO SCH (09:02)
[2019-08-05] MEDS: LACTULOSE SYRUP 10GM/15ML (ENULOSE) 30ML UDC PO PRN (09:02)
[2019-08-05] MEDS: TOLTERODINE LA 4 MG (DETROL) CAP PO SCH (09:02)
[2019-08-05] MEDS: DULoxetine 30 MG (CYMBALTA) CAP PO SCH (09:03)
[2019-08-05] MEDS: SENNA W/DOCUSATE (SENOKOT S) TABLET PO SCH ×2 (09:03→20:50)
[2019-08-05] MEDS: ASPIRIN E.C. 81 MG (ECOTRIN) TAB PO SCH (09:03)
[2019-08-05] MEDS: LOSARTAN 25 MG (COZAAR) TAB PO SCH (09:03)
[2019-08-05] MEDS: LORATADINE (CLARITIN) 10 MG TAB PO SCH (09:03)
[2019-08-05] MEDS: CYCLOBENZAPRINE 10 MG (FLEXERIL) TAB PO PRN (09:12)
--- NOTE | 2019-08-05 09:14 | Occupational Ther Daily Note ---
OT Current Status-Daily Note Subjective Pt laying in bed at start of session, told OT he was "not doing well today". Pt indicated he was in a lot of pain, nursing notified and brought pain meds to pt. Pt verbally report pain as 8/10 stating he hurt "all over". ADL-Treatment Upper Body Dressing not scored secondary to pt donning/doffing hospital gown. Pt was able to manage gown on/off of BUE with set up assistance of clean gown. Therapy Code Descriptions/Definitions Functional [place] Measure: 0=Not Assessed/NA 4=Minimal Assistance 1=Total Assistance 5=Supervision or Setup 2=Maximal Assistance 6=Modified [place] 3=Moderate Assistance 7=Complete IndependenceSCALE: Activities may be completed with or without assistive devices. 5-Cwoifubxjm-ngprzbo completes the activity by him/herself with no assistance from a helper. 5-Set-up or Clean-up Assistance-helper sets up or cleans up; patient completes activity. [place] assists only prior to or following the activity. 4-Supervision or Touching Assistance-helper provides verbal cues and/or touching/steadying and/or contact guard assistance as patient completes activity. Assistance may be provided throughout the activity or intermittently. 3-Partial/Moderate Assistance-helper does LESS THAN HALF the effort. [place] lifts, holds or supports trunk or limbs, but provides less than half the effort. 2-Substantial/Maximal Assistance-helper does MORE THAN HALF the effort. [place] lifts or holds trunk or limbs and provides more than half the effort. 2-Ehbnsgzhj-artdyy does ALL the effort. Patient does none of the effort to complete the activity. Or, the assistance of 2 or more helpers is required for the patient to complete the activity. If activity was not attempted, code reason: 7-Patient Refused. 9-Not Applicable-not attempted and the patient did not perform the activity before the current illness, exacerbation or injury. 10-Not Attempted due to Environmental Limitations-(lack of equipment, weather restraints, etc.). 88-Not Attempted due to Medical Conditions or Safety Concerns. Eating (QC): 4 (Pt opened sugar packets and poured sugar onto lid of his oatmeal. OT had to tell pt that he put the sugar on the lid, pt replied "I'm sorry". Pt was then able to remove lid of oatmeal and pour the sugar from the lid to the bowl. Pt was able to bring food from the bowl to his mouth without spilling any.) Oral Hygiene (QC): 5 (Set up assist, OT brought pt dentures to bed level, pt was able to place dentures into mouth.) Bathing Location: L Arm, R Arm, L Upper Leg, R Upper Leg, Chest, Abdomen, Perineal Area Shower/Bathe Self (QC): 3 (Pt completed sponge bath at bed level, pt attempted to roll and clean buttocks, required assistance for thoroughness. Pt was unable to reach BLE lower legs requiring assistance. Pt required verbal cues for each step for sequencing of task, with restbreaks between washing of each body part.) Lower Body Dressing (QC): 2 (Pt was able to thread LLE into underwear, required assistance with all other parts of task. he attempted to thread RLE into underwear but was unsuccessful. OT assisted pt with threading BLE into pants and with managing pants/underwear up while pt rolled side to side.) Toileting Hygiene (QC): 5 (Pt used urinal at bed level to void. Pt was able to obtain urinal from edge of bed and place onto bedside table once he had voided. OT assisted pt with emptying contents of urinal.) Other Treatment OT session complete on this date at bed level secondary to pt's complaints of pain. Pt completed bathing, dressing, oral hygiene, and eating requiring rest breaks between each step of the ADLs. Pt required mod verbal cues for sequencing throughout session. Pt was towards the foot of the bed, OT instructed pt to use the arm rails to pull himself up towards head of bed, pt trialed but replied "I can't". Assist x2 to scoot pt up towards head of bed. Towards the end of the session, pt reported he felt like his vision was blurry, indicating it has always been blurry. When prompted with the question "Is it blurrier than usual?" pt replied "yes". OT notified nursing. Post OT session, pt laying in bed, call light in reach, all needs met and nursing present. Education OT Patient Education: Correct positioning, Energy conservation, Modified ADL techniques, Progress toward Goal/Update tx plan, Purpose of tx/functional activities Teaching Recipient: Patient Teaching Methods: Demonstration Response to Teaching: Verbalize Understanding, Reinforcement Needed OT Short Term Goals Short Term Goals Lower Body Dressing(FIM): 3 Toilet/Commode Transfer(FIM): 3 Additional Short Term Goals: 1-Demonstrate ADL Tasks, 2-Verbalize Understanding, 3-ImproveStrength/Jesus Alberto 1=Demonstrate adherence to instructed precautions during ADL tasks. 2=Patient will verbalize/demonstrate understanding of assistive devices/modifications for ADL. 3=Patient will improve strength/tolerance for activity to enable patient to perform ADL's. OT Chcf Goals Drill Press Set Up Operator Goals Eating (QC): 6 Oral Hygiene (QC): 6 Shower/Bathe Self (QC): 6 Upper Body Dressing (QC): 6 Lower Body Dressing (QC): 5 On/Off Footwear (QC): 6 Toileting Hygiene (QC): 5 Toilet/Commode Transfer (QC): 5 Additional Goals: 1-Demonstrate ADL Tasks, 2-Verbalize Understanding, 3- ImproveStrength/Jesus Alberto 1=Demonstrate adherence to instructed precautions during ADL tasks. 2=Patient will verbalize/demonstrate understanding of assistive de vices/modifications for ADL. 3=Patient will improve strength/tolerance for activity to enable patient to perform ADL's. OT Education/Plan Problem List/Assessment Assessment: Decreased Activ Tolerance, Decreased UE Strength, Impaired Bed Mobility, Impaired Funct Balance, Impaired I ADL's, Impaired Self-Care Skills Discharge Recommendations Plan/Recommendations: Continue POC Treatment Plan/Plan of Care Treatment,Training & Education: Yes Patient would benefit from OT for education, treatment and training to promote independence in ADL's, mobility, safety and/or upper extremity function for ADL's. Plan of Care: ADL Retraining, Caregiver Training, Concurrent Therapy, Functional Mobility, Group Exercise/Act as Ind, UE Funct Exercise/Act Treatment Duration: Jul 27, 2019 Frequency: At least 5 of 7 days/Wk (IRF) Estimated Hrs Per Day: 1.5 hours per day Agreement: Yes Rehab Potential: Fair Time/GCodes Start Time: 07:50 Stop Time: 09:05 Total Time Billed (hr/min): 75 Billed Treatment Time 1, ADL 5 [id number] RACHID GONZALES OT Aug 05, 2019 09:14
[2019-08-05] MEDS: CARVEDILOL 3.125 MG (COREG) TABLET PO SCH ×2 (10:02→20:50)
[2019-08-05] MEDS: BISACODYL 10 MG SUPP (DULCOLAX) PR SCH ×2 (10:05→20:51)
--- NOTE | 2019-08-05 10:46 | Speech Therapy Daily Note ---
Speech Daily Progress Note Subjective Date Seen by Provider: Aug 05, 2019 Time Seen by Provider: 00:30 Patient was resting in his bed, stating he is still having a great deal of pain. Patient was able to participate with language activities. Objective Patient completed a series of general information questions with 80% given 20% cues. Assessment Assessment Current Status: Good Progress Treatment Plan Continue Plan of Care Speech Short Term Goals Short Term Goals Short Term Goals 1) Patient will complete memory tasks related to his daily needs at 90% or greater, independently. 2) Patient will complete problem solving tasks related to his daily needs at 90% or greater, independently. 3) Patient will complete safety awareness tasks related to his daily needs at 90% or greater, independently. Speech Jersey Knitter Goals [place] Knitter Goals Patient will improve cognitive-communication necessary for safety and daily living tasks with minimal assist. Speech-Plan Patient/Family Goals Patient/Family Goals: Patient plans on returning home or living temporarily with his [facility] upon rehab discharge. Treatment Plan Speech Therapy Treatment Plan: Continue Plan of Care Patient is progressing toward meeting ST goals. Treatment Duration: Aug 12, 2019 Frequency: 5 times per week Estimated Hrs Per Day: .5 hour per day Rehab Potential: Fair Barriers to Learning: Mild cognitive deficits Pt/Family Agrees to Plan: Yes Safety Risks/Education Teaching Recipient: Patient Teaching Methods: Discussion Response to Teaching: Verbalize Understanding Education Topics Provided: Continued communication of wants/needs Time Speech Therapy Time In: 09:30 Speech Therapy Time Out: 10:00 Total Billed Time: 30 Billed Treatment Time 1, PATRICIA Rae Aug 05, 2019 10:46
[2019-08-05] MEDS ORDERED: RT-ALBUTEROL/IPRATROPIUM 3 ML (DUONEB) VIAL INH PRN (11:15)
--- NOTE | 2019-08-05 11:44 | NUR ---
Notified Dr. Bhatt of patient complaining of increased pain within the last 24 hours. Also, measured wound on incisional site and updated Dr. Bhatt on Dimensions. Proximal area of wound has a 2 cm x 0.5 cm open area, distal area of wound has a 3.6 cm x 1.6 cm open area, both covered in yellow slough. No new orders at this time.
--- NOTE | 2019-08-05 11:49 | Physical Therapy Daily Note ---
PT Daily Note-Current Subjective Patient in bed pre tx, agrees to PT, states he doesn't feel well, has 7/10 pain in back. Appearance Patient in bed post tx, laying on side for pressure relief on back, has nurse call, phone, tray, all needs met. Nurse put dressing on back and patient has some redness and swelling in back, nursing is on that. Mental Status Patient Orientation: Normal For Age Transfers SCALE: Activities may be completed with or without assistive devices. 4-Uzyofyvrgq-vnjhqla completes the activity by him/herself with no assistance from a helper. 5-Set-up or Clean-up Assistance-helper sets up or cleans up; patient completes activity. [place] assists only prior to or following the activity. 4-Supervision or Touching Assistance-helper provides verbal cues and/or touching/steadying and/or contact guard assistance as patient completes activity. Assistance may be provided throughout the activity or intermittently. 3-Partial/Moderate Assistance-helper does LESS THAN HALF the effort. [place] lift s, holds or supports trunk or limbs, but provides less than half the effort. 2-Substantial/Maximal Assistance-helper does MORE THAN HALF the effort. [place] lifts or holds trunk or limbs and provides more than half the effort. 4-Ftukixoff-fwzfxd does ALL the effort. Patient does none of the effort to complete the activity. Or, the assistance of 2 or more helpers is required for the patient to complete the activity. If activity was not attempted, code reason: 7-Patient Refused. 9-Not Applicable-not attempted and the patient did not perform the activity before the current illness, exacerbation or injury. 10-Not Attempted due to Environmental Limitations-(lack of equipment, weather restraints, etc.). 88-Not Attempted due to Medical Conditions or Safety Concerns. Transfers (B, C, W/C): 3 Roll Left to Right (QC): 4 Sit to Lying (QC): 3 Sit to Stand (QC): 2 Chair/Nhk-xk-Qjtpx Xfer(QC): 3 Mod assist for supine <-> sit, sliding board transfer mod assist, sit to stand max assist. Patient performed 2 sliding board transfers and stood in the parallel bars x3 for about 30 seconds each time. Weight Bearing Right Lower Extremity: Right Weight Bearing/Tolerated Left Lower Extremity: Left Weight Bearing/Tolerated Wheelchair Training Does the Pt Use a Wheelchair?: Yes Distance: 100'x2 Wheel 50 ft with 2 turns (QC): 4 Type of Wheelchair: Manual SBA Exercises Seated Therapy Exercises: Ankle pumps, Hip flexion, Hip abd/add (with pillow and RTB) Seated Reps: 20 LAQ alternating for 5 min, chair pushups 3 sets of 10 Treatments bed mobility and transfers, WC mobility, LE and UE exercises Assessment Current Status: Poor Progress Patient has not improved with sliding board transfers PT Short Term Goals Short Term Goals Time Frame: Aug 02, 2019 Wheelchair Distance: 150' PT Half-Way Goals Half-Way Goals PT Cyber Incident Handler Goals Time Frame: Aug 16, 2019 Sit to Lying (QC): 3 (Olu) Lying-Sitting on Side/Bed(QC): 3 (Kofi) Sit to Stand (QC): 1 Roll Left to Right (QC): 3 (Olu) Chair/Kfx-nh-Ffgll Xfer(QC): 3 (Olu) Car Transfer (QC): 1 Walk 10 feet (QC): 88 Walk 10ft-Uneven Surface(QC): 88 Walk 50ft with 2 Turns (QC): 88 Walk 150 ft (QC): 88 Wheel 50 feet with 2 turns (QC: 5 1 Step (curb) (QC): 88 4 Steps (QC): 88 12 Steps (QC): 88 Picking up an Object (QC): 88 PT Plan Problem List Problem List: Activity Tolerance, Functional Strength, Safety, Balance, Gait, Transfer, Bed Mobility, ROM Treatment/Plan Treatment Plan: Continue Plan of Care Treatment Plan: Bed Mobility, Concurrent Therapy, Education, Functional Activity Jesus Alberto, Functional Strength, Group Therapy, Gait, Safety, Therapeutic Exercise, Transfers Treatment Duration: Aug 16, 2019 Frequency: At least 5 of 7 days/Wk (IRF) Estimated Hrs Per Day: 1.5 hours per day Patient and/or Family Agrees t: Yes Safety Risks/Education Patient Education: Transfer Techniques, Correct Positioning, W/C Management, Safety Issues Teaching Recipient: Patient Teaching Methods: Demonstration, Discussion Response to Teaching: Reinforcement Needed Time/GCodes Time In: 1030 Time Out: 1130 Total Billed Treatment Time: 60 Total Billed Treatment 1 visit EX 30' WCH 10' FA 20' ALANA CISNEROS PT Aug 05, 2019 11:49
--- NOTE | 2019-08-05 12:00 | NUR ---
New Wound Care orders received from Dr. Bhatt.
--- NOTE | 2019-08-05 13:20 | Physical Therapy Daily Note ---
PT Daily Note-Current Subjective Patient in bed pre tx, agrees to PT, has no complaints of pain at rest. Appearance Patient in bed post tx with nurse call, phone, tray, all needs met. Mental Status Patient Orientation: Normal For Age Transfers SCALE: Activities may be completed with or without assistive devices. 8-Lpjkfnphjw-uwpvjss completes the activity by him/herself with no assistance from a helper. 5-Set-up or Clean-up Assistance-helper sets up or cleans up; patient completes activity. [place] assists only prior to or following the activity. 4-Supervision or Touching Assistance-helper provides verbal cues and/or touching/steadying and/or contact guard assistance as patient completes activity. Assistance may be provided throughout the activity or intermittently. 3-Partial/Moderate Assistance-helper does LESS THAN HALF the effort. [place] lifts, holds or supports trunk or limbs, but provides less than half the effort. 2-Substantial/Maximal Assistance-helper does MORE THAN HALF the effort. [place] lifts or holds trunk or limbs and provides more than half the effort. 8-[place]-tjwalp does ALL the effort. Patient does none of the effort to complete the activity. Or, the assistance of 2 or more helpers is required for the patient to complete the activity. If activity was not attempted, code reason: 7-Patient Refused. 9-Not Applicable-not attempted and the patient did not perform the activity before the current illness, exacerbation or injury. 10-Not Attempted due to Environmental Limitations-(lack of equipment, weather restraints, etc.). 88-Not Attempted due to Medical Conditions or Safety Concerns. Weight Bearing Right Lower Extremity: Right Weight Bearing/Tolerated Left Lower Extremity: Left Weight Bearing/Tolerated Exercises Supine Ex: Ankle pumps, Quad Set, Glut sets, Heel Slides, Straight leg raise, Hip abd/add Supine Reps: 20 (AAROM) Treatments LE exercise Assessment Current Status: Fair Progress patient needs AAROM with HS, SLR, hip abd PT Short Term Goals Short Term Goals Time Frame: Aug 02, 2019 Wheelchair Distance: 100'x2 PT Half-Way Goals Hotel Valet Attendant Goals PT Hotel Valet Attendant Goals Time Frame: Aug 16, 2019 Sit to Lying (QC): 3 (Olu) Lying-Sitting on Side/Bed(QC): 3 (Kofi) Sit to Stand (QC): 1 Roll Left to Right (QC): 3 (Olu) Chair/Mcm-fi-Uqihk Xfer(QC): 3 (Olu) Car Transfer (QC): 1 Walk 10 feet (QC): 88 Walk 10ft-Uneven Surface(QC): 88 Walk 50ft with 2 Turns (QC): 88 Walk 150 ft (QC): 88 Wheel 50 feet with 2 turns (QC: 5 1 Step (curb) (QC): 88 4 Steps (QC): 88 12 Steps (QC): 88 Picking up an Object (QC): 88 PT Plan Problem List Problem List: Activity Tolerance, Functional Strength, Safety, Balance, Transfer, Bed Mobility, ROM Treatment/Plan Treatment Plan: Continue Plan of Care Treatment Plan: Bed Mobility, Concurrent Therapy, Education, Functional Activity Jesus Alberto, Functional Strength, Group Therapy, Gait, Safety, Therapeutic Exercise, Transfers Treatment Duration: Aug 16, 2019 Frequency: At least 5 of 7 days/Wk (IRF) Estimated Hrs Per Day: 1.5 hours per day Patient and/or Family Agrees t: Yes Safety Risks/Education Patient Education: Correct Positioning, Safety Issues Teaching Recipient: Patient Teaching Methods: Demonstration, Discussion Response to Teaching: Reinforcement Needed Time/GCodes Time In: 1300 Time Out: 1315 Total Billed Treatment Time: 15 Total Billed Treatment 1 visit EX ALANA LOCK PT Aug 05, 2019 13:20
[2019-08-05] MEDS: BACITRACIN OINTMENT 28 GM TUBE TOP SCH ×2 (14:29→20:51)
[2019-08-05 18:11] VITALS: BP 102/65
[2019-08-05 20:48] VITALS: BP 92/60
[2019-08-05] MEDS: DONEPEZIL 10 MG (ARICEPT) TAB PO SCH (20:49)
[2019-08-05] MEDS: TERAZOSIN 5 MG (HYTRIN) CAPSULE PO SCH (20:50)
[2019-08-05] MEDS: risperiDONE 0.25 MG (RisperDAL) TAB PO SCH (20:50)
[2019-08-06 05:43] VITALS: BP 113/62
[2019-08-06] MEDS: LACTOBACILLUS ACIDOPHILUS (PROBIOTIC) CAPSULE PO SCH ×3 (06:28→16:56)
[2019-08-06] MEDS: PANTOPRAZOLE 40 MG (PROTONIX) TAB PO SCH (06:28)
[2019-08-06] MEDS: CARVEDILOL 3.125 MG (COREG) TABLET PO SCH ×2 (08:58→21:06)
[2019-08-06] MEDS: TOLTERODINE LA 4 MG (DETROL) CAP PO SCH (08:58)
[2019-08-06] MEDS: ASPIRIN E.C. 81 MG (ECOTRIN) TAB PO SCH (08:58)
[2019-08-06] MEDS: DULoxetine 30 MG (CYMBALTA) CAP PO SCH (08:58)
[2019-08-06] MEDS: CLOPIDOGREL 75 MG (PLAVIX) TABLET PO SCH (08:58)
[2019-08-06] MEDS: LOSARTAN 25 MG (COZAAR) TAB PO SCH (08:58)
[2019-08-06] MEDS: LORATADINE (CLARITIN) 10 MG TAB PO SCH (08:58)
[2019-08-06 09:00] VITALS: BP 114/78
[2019-08-06] MEDS: BISACODYL 10 MG SUPP (DULCOLAX) PR SCH ×2 (09:00→21:00)
[2019-08-06] MEDS: SENNA W/DOCUSATE (SENOKOT S) TABLET PO SCH ×2 (09:00→21:00)
[2019-08-06] MEDS: DOCUSATE CALCIUM 240 MG (SURFAK) CAP PO SCH ×2 (09:00→21:05)
[2019-08-06] MEDS: POLYETHYLENE GLYCOL 17 GM (MIRALAX) PACK PO SCH ×2 (09:00→21:00)
[2019-08-06] MEDS: BACITRACIN OINTMENT 28 GM TUBE TOP SCH ×2 (09:09→22:20)
--- NOTE | 2019-08-06 12:59 | PM&R Progress Note ---
Subjective HPI/CC On Admission Date Seen by Provider: Aug 06, 2019 Time Seen by Provider: 11:00 CC: Cervical spine injury non-traumatic HPI: This is a 78yoWM who presented to the Hospital with significant compromise in function, was found to have significant cervical spine stenosis causing generalized weakness globally, that was complicated with delirium post- operatively in addition to a UTI diagnosis. Pt previously doctored with Dr. Tyler Danielson and did not see a regular white washer although he has had Bypass surgery and has known CAD. Pt was doing well but had a lengthy acute care course and is in need of significant rehabilitation, prior to returning home. He seems to be very depressed, very tearful when I meet him and reports that he is about to turn 79 next month. I have tried to reassure him and I have put in a behavioral health consult in for him because of obvious tearfulness and overwhelmed feeling and loss of independence that he will need to be aggressively treated for in order to return home safely. Previously he used a walker for the past 6 months prior to admission, had lumbar spine surgery then was discharged home and home PT Collette Ramos evaluated the Pt to have such se higinio weakness that he was total care so he was sent to the ER for workup and from there thing progressed into cervical spine MRI showing severe stenosis and Dr. Bhatt performed surgery with good results but was so severe it was a dural tear during the surgery and he has become quite debilitated. He is urinating well, hasn't had a BM in several days so will need to work on that when he is admitted into the inpatient rehab unit. Overall he will be aggressively treated in order to re-gain his independence in order to return home. Subjective/Events-last exam Superficial dehiscence managed with dressing changes Incision does produce some serous drainage Incontinence continues with bowel and bladder Pain continues to be an issue Overall maximum care is been given to this patient and likely will need to go to a senior living Check meds and labs Reviewed therapy notes Conferred with telegraph service clerk of Systems General: Fatigue Musculoskeletal: back pain Objective Exam Vital Signs Vital Signs Date Time Temp Pulse Resp B/P (MAP) Pulse Ox O2 Delivery O2 Flow Rate FiO2 08/06/19 09:00 36.9 70 20 114/78 (90) 97 Room Air Capillary Refill : Less Than 3 Seconds General Appearance: No Apparent Distress, WD/WN, Chronically ill HEENT: PERRL/EOMI, Normal ENT Inspection, Pharynx Normal, Moist Mucous Membranes Neck: Full Range of Motion, Normal Inspection, Non Tender, Supple Respiratory: Lungs Clear, Normal Breath Sounds, No Respiratory Distress Cardiovascular: Regular Rate, Rhythm, No JVD Gastrointestinal: Normal Bowel Sounds, No Organomegaly, No Pulsatile Mass, Non Tender, Soft Back: Normal Inspection, No CVA Tenderness, Decreased Range of Motion Extremity: Normal Capillary Refill, Normal Inspection, Normal Range of Motion, Non Tender, No Calf Tenderness, No Pedal Edema Neurologic/Psychiatric: Alert, Oriented x3, Normal Mood/Affect, 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 FIM Transfers Therapy Code Descriptions/Definitions Functional [place] Measure: 0=Not Assessed/NA 4=Minimal Assistance 1=Total Assistance 5=Supervision or Setup 2=Maximal Assistance 6=Modified [place] 3=Moderate Assistance 7=Complete IndependenceSCALE: Activities may be completed with or without assistive devices. 9-Rlchqztlks-vqweggf completes the activity by him/herself with no assistance from a helper. 5-Set-up or Clean-up Assistance-helper sets up or cleans up; patient completes activity. [place] assists only prior to or following the activity. 4-Supervision or Touching Assistance-helper provides verbal cues and/or touching/steadying and/or contact guard assistance as patient completes activity. Assistance may be provided throughout the activity or intermittently. 3-Partial/Moderate Assistance-helper does LESS THAN HALF the effort. [place] lifts, holds or supports trunk or limbs, but provides less than half the effort. 2-Substantial/Maximal Assistance-helper does MORE THAN HALF the effort. [place] lifts or holds trunk or limbs and provides more than half the effort. 6-Mxvywcqxs-yhajpi does ALL the effort. Patient does none of the effort to complete the activity. Or, the assistance of 2 or more helpers is required for the patient to complete the activity. If activity was not attempted, code reason: 7-Patient Refused. 9-Not Applicable-not attempted and the patient did not perform the activity before the current illness, exacerbation or injury. 10-Not Attempted due to Environmental Limitations-(lack of equipment, weather restraints, etc.). 88-Not Attempted due to Medical Conditions or Safety Concerns. Transfers (B, C, W/C) (FIM): 3 Roll Left to Right (QC): 4 Sit to Lying (QC): 3 Sit to Stand (QC): 2 Chair/Pyz-ua-Rvyfc Xfer(QC): 3 Bed to/from Chair: 4 Car Transfer (QC): 1 Gait Training Does the Patient Walk?: No and Walking Goal NOT indicated Gait (FIM): 5 Walk 10 feet (QC): 5 Walk 50 ft with 2 Turns(QC): 5 Walk 150 ft (QC): 5 Walking 10ft/uneven surface-QC: 88 Gait Persons Needed: 1 Gait Assistive Device: FWW Wheelchair Training Does the Pt Use a Wheelchair?: Yes Wheelchair (FIM): 1 Wheelchair Distance: 3=150 ft Distance: 100'x2 Wheel 50 ft with 2 turns (QC): 4 Wheel 150 ft (QC): 5 Type of Wheelchair: Manual ADL-Treatment Eating (QC): 4 (Pt opened sugar packets and poured sugar onto lid of his oatmeal. OT had to tell pt that he put the sugar on the lid, pt replied "I'm sorry". Pt was then able to remove lid of oatmeal and pour the sugar from the lid to the bowl. Pt was able to bring food from the bowl to his mouth without spilling any.) Groomin (Pt brushed hair at bed level, he was able to gather hair brush from side table and complete task without assistance.) Oral Hygiene (QC): 5 (Set up assist, OT brought pt dentures to bed level, pt was able to place dentures into mouth.) Bathing Location: L Arm, R Arm, L Upper Leg, R Upper Leg, Chest, Abdomen, Perineal Area Shower/Bathe Self (QC): 3 (Pt completed sponge bath at bed level, pt attempted to roll and clean buttocks, required assistance for thoroughness. Pt was unable to reach BLE lower legs requiring assistance. Pt required verbal cues for each step for sequencing of task, with restbreaks between washing of each body part.) Upper Body Dressing (QC): 5 Lower Body Dressing (QC): 2 (Pt was able to thread LLE into underwear, required assistance with all other parts of task. he attempted to thread RLE into underwear but was unsuccessful. OT assisted pt with threading BLE into pants and with managing pants/underwear up while pt rolled side to side.) On/Off Footwear (QC): 2 (OT educated pt on using sock aid to don socks. OT assisted pt with doffing socks, & demo'd use of sock aid. Pt able to don sock on left foot using sock aid, required assistance with right foot secondary to dressing on heel of foot) Toileting Hygiene (QC): 5 (Pt used urinal at bed level to void. Pt was able to obtain urinal from edge of bed and place onto bedside table once he had voided. OT assisted pt with emptying contents of urinal.) Toilet Transfer (QC): 1 (Pt able to perform SB transfer from EOB to drop arm commode with assist for hand placement and assist scooting across SB. Pt required x2 assist for squat pivot transfer from commode to recliner.) Assessment/Plan Assessment and Plan Assess & Plan/Chief Complaint Assessment: Spinal cord trauma from severe stenosis Debility CAD Delirium now improved s/p UTI completed treatment Constipation now resolved 07/28/19 HTN HLP Cognitive deficit SLUMS Depression Bladder incontinence Bowel incontinence Plan: Monitor bowel and bladder incontinence IRF protocol Increase strength with IRF protocols BM regimen to hold due to loose stools Started antidepressant Monitor BP s/p DC steroids Patient appears to be in need of nursing facility skilled care at discharge (1) Spinal cord injury (2) Generalized Weakness (3) Cervical spinal stenosis Status: Acute (4) Neuroforaminal stenosis of spine Status: Acute (5) Essential (primary) hypertension Status: Chronic (6) Lumbar spinal stenosis Status: Acute (7) Slipped intervertebral disc Status: Acute (8) Delirium Status: Acute (9) Incidental durotomy Status: Acute (10) CAD (coronary artery disease) Status: Chronic YANETH REEDER DO Aug 06, 2019 12:59
[2019-08-06] MEDS: HYDROcodone/APAP 5 MG/325 MG (LORTAB) TAB PO PRN (14:11)
[2019-08-06 18:05] VITALS: BP 122/64
[2019-08-06] MEDS: TERAZOSIN 5 MG (HYTRIN) CAPSULE PO SCH (21:05)
[2019-08-06] MEDS: DONEPEZIL 10 MG (ARICEPT) TAB PO SCH (21:06)
[2019-08-06 21:07] VITALS: BP 94/58
[2019-08-06] MEDS: risperiDONE 0.25 MG (RisperDAL) TAB PO SCH (21:07)
[2019-08-06] MEDS: MELATONIN 3 MG TABLET PO PRN (21:07)
[2019-08-06 22:30] VITALS: BP 101/62
[2019-08-07 05:18] VITALS: BP 103/67
[2019-08-07] MEDS: PANTOPRAZOLE 40 MG (PROTONIX) TAB PO SCH (06:15)
[2019-08-07] MEDS: LACTOBACILLUS ACIDOPHILUS (PROBIOTIC) CAPSULE PO SCH ×3 (06:15→16:34)
[2019-08-07] MEDS: CARVEDILOL 3.125 MG (COREG) TABLET PO SCH ×2 (08:22→20:34)
[2019-08-07] MEDS: ASPIRIN E.C. 81 MG (ECOTRIN) TAB PO SCH (08:23)
[2019-08-07] MEDS: TOLTERODINE LA 4 MG (DETROL) CAP PO SCH (08:23)
[2019-08-07] MEDS: POLYETHYLENE GLYCOL 17 GM (MIRALAX) PACK PO SCH ×2 (08:23→20:35)
[2019-08-07] MEDS: CLOPIDOGREL 75 MG (PLAVIX) TABLET PO SCH (08:23)
[2019-08-07] MEDS: LOSARTAN 25 MG (COZAAR) TAB PO SCH (08:23)
[2019-08-07] MEDS: LORATADINE (CLARITIN) 10 MG TAB PO SCH (08:23)
[2019-08-07] MEDS: SENNA W/DOCUSATE (SENOKOT S) TABLET PO SCH ×2 (08:23→20:34)
[2019-08-07] MEDS: DULoxetine 30 MG (CYMBALTA) CAP PO SCH (08:23)
[2019-08-07] MEDS: DOCUSATE CALCIUM 240 MG (SURFAK) CAP PO SCH ×2 (08:24→20:34)
[2019-08-07] MEDS: BISACODYL 10 MG SUPP (DULCOLAX) PR SCH ×2 (08:24→20:34)
[2019-08-07] MEDS: BACITRACIN OINTMENT 28 GM TUBE TOP SCH ×2 (08:24→21:39)
[2019-08-07 08:28] VITALS: BP 110/61
--- NOTE | 2019-08-07 12:54 | NUR ---
Dr. Justice informed of serosanguineous drainage from back incision. Orders to inform Dr. Bhatt tomorrow, 08/08/19. Will pass on in report.
--- NOTE | 2019-08-07 12:54 | PM&R Progress Note ---
Subjective HPI/CC On Admission Date Seen by Provider: Aug 07, 2019 Time Seen by Provider: 11:15 CC: Cervical spine injury non-traumatic HPI: This is a 78yoWM who presented to the Hospital with significant compromise in function, was found to have significant cervical spine stenosis causing generalized weakness globally, that was complicated with delirium post- operatively in addition to a UTI diagnosis. Pt previously doctored with Dr. Tyler Danielson and did not see a regular fur feeder although he has had Bypass surgery and has known CAD. Pt was doing well but had a lengthy acute care course and is in need of significant rehabilitation, prior to returning home. He seems to be very depressed, very tearful when I meet him and reports that he is about to turn 79 next month. I have tried to reassure him and I have put in a behavioral health consult in for him because of obvious tearfulness and overwhelmed feeling and loss of independence that he will need to be aggressively treated for in order to return home safely. Previously he used a walker for the past 6 months prior to admission, had lumbar spine surgery then was discharged home and home PT Collette Ramos evaluated the Pt to have such severe weakness that he was total care so he was sent to the ER for workup and from there thing progressed into cervical spine MRI showing severe stenosis and Dr. Bhatt performed surgery with good results but was so severe it was a dural tear during the surgery and he has become quite debilitated. He is urinating well, hasn't had a BM in several days so will need to work on that when he is admitted into the inpatient rehab unit. Overall he will be aggressively treated in order to re-gain his independence in order to return home. Subjective/Events-last exam Superficial dehiscence managed with dressing changes which is draining serous type of fluid No fever Incontinence continues with bowel and bladder Pain continues to be an issue and unsure the source and definitely not able to modify that by much considering his recent extensive surgeries Overall maximum care is been given to this patient and likely will need to go to a detention Check meds and labs Reviewed therapy notes Conferred with documentation manager of Systems Musculoskeletal: back pain Neurological: Weakness, Numbness, Incoordination Objective Exam Vital Signs Vital Signs Date Time Temp Pulse Resp B/P (MAP) Pulse Ox O2 Delivery O2 Flow Rate FiO2 08/07/19 20:00 Room Air 08/07/19 19:00 36.2 77 16 111/71 84 98 Capillary Refill : Less Than 3 Seconds General Appearance: No Apparent Distress, WD/WN, Chronically ill HEENT: PERRL/EOMI, Normal ENT Inspection, Pharynx Normal, Moist Mucous Membranes Neck: Full Range of Motion, Normal Inspection, Non Tender, Supple Respiratory: Lungs Clear, Normal Breath Sounds, No Respiratory Distress Cardiovascular: Regular Rate, Rhythm, No JVD Gastrointestinal: Normal Bowel Sounds, No Organomegaly, No Pulsatile Mass, Non Tender, Soft Back: Normal Inspection, No CVA Tenderness, Decreased Range of Motion Extremity: Normal Capillary Refill, Normal Inspection, Normal Range of Motion, Non Tender, No Calf Tenderness, No Pedal Edema Neurologic/Psychiatric: Alert, Oriented x3, Normal Mood/Affect, artificial insemination technician II-XII Norm as Tested, Motor Weakness (generalized all extremities 3/5) Skin: Normal Color, Warm/Dry Lymphatic: No Adenopathy Results/Procedures Lab Laboratory Tests 08/08/19 04:25 Patient resulted labs reviewed. FIM Transfers Therapy Code Descriptions/Definitions Functional [place] Measure: 0=Not Assessed/NA 4=Minimal Assistance 1=Total Assistance 5=Supervision or Setup 2=Maximal Assistance 6=Modified [place] 3=Moderate Assistance 7=Complete IndependenceSCALE: Activities may be completed with or without assistive devices. 3-Rnagqjnecb-atpxlfj completes the activity by him/herself with no assistance from a helper. 5-Set-up or Clean-up Assistance-helper sets up or cleans up; patient completes activity. [place] assists only prior to or following the activity. 4-Supervision or Touching Assistance-helper provides verbal cues and/or touchin g/steadying and/or contact guard assistance as patient completes activity. Assistance may be provided throughout the activity or intermittently. 3-Partial/Moderate Assistance-helper does LESS THAN HALF the effort. [place] lifts, holds or supports trunk or limbs, but provides less than half the effort. 2-Substantial/Maximal Assistance-helper does MORE THAN HALF the effort. [place] lifts or holds trunk or limbs and provides more than half the effort. 3-Vbopmktzs-ctyxdb does ALL the effort. Patient does none of the effort to complete the activity. Or, the assistance of 2 or more helpers is required for the patient to complete the activity. If activity was not attempted, code reason: 7-Patient Refused. 9-Not Applicable-not attempted and the patient did not perform the activity before the current illness, exacerbation or injury. 10-Not Attempted due to Environmental Limitations-(lack of equipment, weather restraints, etc.). 88-Not Attempted due to Medical Conditions or Safety Concerns. Transfers (B, C, W/C) (FIM): 3 Roll Left to Right (QC): 4 Sit to Lying (QC): 3 Sit to Stand (QC): 2 Chair/Glo-uu-Imraw Xfer(QC): 3 Bed to/from Chair: 4 Car Transfer (QC): 1 Gait Training Does the Patient Walk?: No and Walking Goal NOT indicated Gait (FIM): 5 Walk 10 feet (QC): 5 Walk 50 ft with 2 Turns(QC): 5 Walk 150 ft (QC): 5 Walking 10ft/uneven surface-QC: 88 Gait Persons Needed: 1 Gait Assistive Device: FWW Wheelchair Training Does the Pt Use a Wheelchair?: Yes Wheelchair (FIM): 1 Wheelchair Distance: 3=150 ft Distance: 100'x2 Wheel 50 ft with 2 turns (QC): 4 Wheel 150 ft (QC): 5 Type of Wheelchair: Manual ADL-Treatment Eating (QC): 4 (Pt opened sugar packets and poured sugar onto lid of his oatmeal. OT had to tell pt that he put the sugar on the lid, pt replied "I'm sorry". Pt was then able to remove lid of oatmeal and pour the sugar from the lid to the bowl. Pt was able to bring food from the bowl to his mouth without spilling any.) Groomin (Pt brushed hair at bed level, he was able to gather hair brush from side table and complete task without assistance.) Oral Hygiene (QC): 5 (Set up assist, OT brought pt dentures to bed level, pt was able to place dentures into mouth.) Bathing Location: L Arm, R Arm, L Upper Leg, R Upper Leg, Chest, Abdomen, Perineal Area Shower/Bathe Self (QC): 3 (Pt completed sponge bath at bed level, pt attempted to roll and clean buttocks, required assistance for thoroughness. Pt was unable to reach BLE lower legs requiring assistance. Pt required verbal cues for each step for sequencing of task, with restbreaks between washing of each body part.) Upper Body Dressing (QC): 5 Lower Body Dressing (QC): 2 (Pt was able to thread LLE into underwear, required assistance with all other parts of task. he attempted to thread RLE into underwear but was unsuccessful. OT assisted pt with threading BLE into pants and with managing pants/underwear up while pt rolled side to side.) On/Off Footwear (QC): 2 (OT educated pt on using sock aid to don socks. OT assisted pt with doffing socks, & demo'd use of sock aid. Pt able to don sock on left foot using sock aid, required assistance with right foot secondary to dressing on heel of foot) Toileting Hygiene (QC): 5 (Pt used urinal at bed level to void. Pt was able to obtain urinal from edge of bed and place onto bedside table once he had voided. OT assisted pt with emptying contents of urinal.) Toilet Transfer (QC): 1 (Pt able to perform SB transfer from EOB to drop arm commode with assist for hand placement and assist scooting across SB. Pt r equired x2 assist for squat pivot transfer from commode to recliner.) Assessment/Plan Assessment and Plan Assess & Plan/Chief Complaint Assessment: Spinal cord trauma from severe stenosis Debility CAD Delirium now improved s/p UTI completed treatment Constipation now resolved 07/28/19 HTN HLP Cognitive deficit SLUMS Depression Bladder incontinence Bowel incontinence Plan: Monitor bowel and bladder incontinence IRF protocol Increase strength with IRF protocols BM regimen to hold due to loose stools Started antidepressant Monitor BP s/p DC steroids Patient appears to be in need of nursing facility skilled care at discharge (1) Spinal cord injury (2) Generalized Weakness (3) Cervical spinal stenosis Status: Acute (4) Neuroforaminal stenosis of spine Status: Acute (5) Essential (primary) hypertension Status: Chronic (6) Lumbar spinal stenosis Status: Acute (7) Slipped intervertebral disc Status: Acute (8) Delirium Status: Acute (9) Incidental durotomy Status: Acute (10) CAD (coronary artery disease) Status: Chronic YANETH REEDER DO Aug 07, 2019 12:54
[2019-08-07 17:15] VITALS: BP 106/65
[2019-08-07 19:00] VITALS: BP 111/71
[2019-08-07] MEDS: DONEPEZIL 10 MG (ARICEPT) TAB PO SCH (20:33)
[2019-08-07] MEDS: risperiDONE 0.25 MG (RisperDAL) TAB PO SCH (20:34)
[2019-08-07] MEDS: TERAZOSIN 5 MG (HYTRIN) CAPSULE PO SCH (20:34)
[2019-08-07] MEDS: HYDROcodone/APAP 5 MG/325 MG (LORTAB) TAB PO PRN (22:28)
[2019-08-08] MEDS: HYDROcodone/APAP 5 MG/325 MG (LORTAB) TAB PO PRN (04:07)
[2019-08-08 05:13] LABS: BASOPHILS % (AUTO) 0 % (0-10); EOSINOPHILS # (AUTO) 0.2 10^3/uL (0.0-0.3); EOSINOPHILS % (AUTO) 2 % (0-10); HEMATOCRIT 39 % (40-54); LYMPHOCYTES # (AUTO) 1.1 X 10^3 (1.0-4.0); LYMPHOCYTES % (AUTO) 16 % (12-44); MEAN CORPUSCULAR HEMOGLOBIN 30 PG (25-34); MEAN CORPUSCULAR HGB CONC 33 G/DL (32-36); MEAN CORPUSCULAR VOLUME 92 FL (80-99); MEAN PLATELET VOLUME 9.8 FL (7.4-10.4); MONOCYTES # (AUTO) 0.6 X 10^3 (0.0-1.0); MONOCYTES % (AUTO) 9 % (0-12); NEUTROPHILS # (AUTO) 5.2 X 10^3 (1.8-7.8); NEUTROPHILS % (AUTO) 73 % (42-75); PLATELET COUNT 215 10^3/uL (130-400); RED CELL DISTRIBUTION WIDTH 13.4 % (10.0-14.5); WHITE BLOOD COUNT 7.1 10^3/uL (4.3-11.0)
[2019-08-08 05:40] LABS: ALANINE AMINOTRANSFERASE 18 U/L (0-55); ALBUMIN 3.1 GM/DL (3.2-4.5); ALKALINE PHOSPHATASE 90 U/L (40-136); BILIRUBIN,TOTAL 0.4 MG/DL (0.1-1.0); BUN/CREATININE RATIO 28; CALCIUM 8.5 MG/DL (8.5-10.1); CARBON DIOXIDE 21 MMOL/L (21-32); CHLORIDE 107 MMOL/L (98-107); GFR ESTIMATED > 60; GLUCOSE 108 MG/DL (70-105); POTASSIUM 3.6 MMOL/L (3.6-5.0); SODIUM 139 MMOL/L (135-145); TOTAL PROTEIN 5.9 GM/DL (6.4-8.2)
[2019-08-08 05:44] VITALS: BP 93/60
[2019-08-08] MEDS: LACTOBACILLUS ACIDOPHILUS (PROBIOTIC) CAPSULE PO SCH ×3 (06:11→18:00)
[2019-08-08] MEDS: PANTOPRAZOLE 40 MG (PROTONIX) TAB PO SCH (06:11)
--- NOTE | 2019-08-08 09:09 | Occupational Ther Daily Note ---
OT Current Status-Daily Note Subjective Pt alert, lying in bed. Pt states that he is not doing well and he is in a lot of pain. Reported to nrsg and physician came into room for rounds. Pt required encouragement to participate in therapy. Mental Status/Objective Patient Orientation: Person, Place, Time, Situation ADL-Treatment Pt declined shower, but agrees to sponge bath. Pt took sponge bath sitting EOB with bath packet. Min A for supine to sitting EOB then pt completed upper body bathing and dressing by self after set up. Pt attempted to don/doff socks, but unable to due to increased pain. Pt able to reach janna area to bathe in supine and assist to bathe buttocks and lower body. Pt able to roll side to side with CGA. Pt takes increased time to complete tasks due to pain. Set up for oral care due to pt declined to go to sink when completing oral care. Assist to scoot up in bed. Therapy Code Descriptions/Definitions Functional [place] Measure: 0=Not Assessed/NA 4=Minimal Assistance 1=Total Assistance 5=Supervision or Setup 2=Maximal Assistance 6=Modified [place] 3=Moderate Assistance 7=Complete IndependenceSCALE: Activities may be completed with or without assistive devices. 3-Vovllsvono-aufnkdq completes the activity by him/herself with no assistance from a helper. 5-Set-up or Clean-up Assistance-helper sets up or cleans up; patient completes activity. [place] assists only prior to or following the activity. 4-Supervision or Touching Assistance-helper provides verbal cues and/or touching/steadying and/or contact guard assistance as patient completes activity. Assistance may be provided throughout the activity or intermittently. 3-Partial/Moderate Assistance-helper does LESS THAN HALF the effort. [place] lifts, holds or supports trunk or limbs, but provides less than half the effort. 2-Substantial/Maximal Assistance-helper does MORE THAN HALF the effort. [place] lifts or holds trunk or limbs and provides more than half the effort. 4-Hzpbwurfs-ivsgpi does ALL the effort. Patient does none of the effort to complete the activity. Or, the assistance of 2 or more helpers is required for the patient to complete the activity. If activity was not attempted, code reason: 7-Patient Refused. 9-Not Applicable-not attempted and the patient did not perform the activity before the current illness, exacerbation or injury. 10-Not Attempted due to Environmental Limitations-(lack of equipment, weather restraints, etc.). 88-Not Attempted due to Medical Conditions or Safety Concerns. Oral Hygiene (QC): 5 Bathing Location: L Arm, R Arm, Chest, Abdomen, Perineal Area Shower/Bathe Self (QC): 3 Upper Body Dressing (QC): 5 Lower Body Dressing (QC): 2 Other Treatment Pt stated that he couldn't move his L arm because he sprung his wrist. Pt was able to move and complete UE and fine motor strengthening activities to increase strength and dexterity for daily functional tasks. Completed 4 UE dowel katya exercises against gravity, 3 sets 10 reps. Resistive clothespins 1x each hand to increase strength. After therapy, pt lying in bed with call light/phone in reach. All needs met in room. OT Short Term Goals Short Term Goals Lower Body Dressing(FIM): 3 Toilet/Commode Transfer(FIM): 3 Additional Short Term Goals: 1-Demonstrate ADL Tasks, 2-Verbalize Understanding, 3-ImproveStrength/Jesus Alberto 1=Demonstrate adherence to instructed precautions during ADL tasks. 2=Patient will verbalize/demonstrate understanding of assistive devices/modifications for ADL. 3=Patient will improve strength/tolerance for activity to enable patient to perform ADL's. OT Senior Living Goals Miller Helper Goals Eating (QC): 6 Oral Hygiene (QC): 6 Shower/Bathe Self (QC): 6 Upper Body Dressing (QC): 6 Lower Body Dressing (QC): 5 On/Off Footwear (QC): 6 Toileting Hygiene (QC): 5 Toilet/Commode Transfer (QC): 5 Additional Goals: 1-Demonstrate ADL Tasks, 2-Verbalize Understanding, 3- ImproveStrength/Jesus Alberto 1=Demonstrate adherence to instructed precautions during ADL tasks. 2=Patient will verbalize/demonstrate understanding of assistive devices/modifications for ADL. 3=Patient will improve strength/tolerance for activity to enable patient to perform ADL's. OT Education/Plan Problem List/Assessment Assessment: Decreased Activ Tolerance, Decreased UE Strength, Impaired Self-Care Skills, Restricted Funct UE ROM Discharge Recommendations Plan/Recommendations: Continue POC Treatment Plan/Plan of Care Patient would benefit from OT for education, treatment and training to promote independence in ADL's, mobility, safety and/or upper extremity function for ADL's. Plan of Care: ADL Retraining, Caregiver Training, Concurrent Therapy, Functional Mobility, Group Exercise/Act as Ind, UE Funct Exercise/Act Treatment Duration: Jul 27, 2019 Frequency: At least 5 of 7 days/Wk (IRF) Estimated Hrs Per Day: 1.5 hours per day Agreement: Yes Rehab Potential: Fair Time/GCodes Start Time: 08:15 Stop Time: 09:30 Total Time Billed (hr/min): 75 Billed Treatment Time 1 VISIT-ADL 4 (55 min) EX 1 (20 min) SNEHA GARCIA Aug 08, 2019 09:09
[2019-08-08 09:12] VITALS: BP 96/68
[2019-08-08 09:14] VITALS: BP 106/73
[2019-08-08] MEDS: CARVEDILOL 3.125 MG (COREG) TABLET PO SCH ×2 (09:31→20:14)
[2019-08-08] MEDS: DULoxetine 30 MG (CYMBALTA) CAP PO SCH (09:31)
[2019-08-08] MEDS: LORATADINE (CLARITIN) 10 MG TAB PO SCH (09:32)
[2019-08-08] MEDS: CLOPIDOGREL 75 MG (PLAVIX) TABLET PO SCH (09:32)
[2019-08-08] MEDS: LOSARTAN 25 MG (COZAAR) TAB PO SCH (09:32)
[2019-08-08] MEDS: ASPIRIN E.C. 81 MG (ECOTRIN) TAB PO SCH (09:32)
[2019-08-08] MEDS: BISACODYL 10 MG SUPP (DULCOLAX) PR SCH ×2 (09:33→20:16)
[2019-08-08] MEDS: ONDANSETRON 4 MG (ZOFRAN) ORAL DISSOLVE TAB PO PRN ×2 (09:33→09:50)
--- NOTE | 2019-08-08 09:37 | PM&R Progress Note ---
Subjective HPI/CC On Admission Date Seen by Provider: Aug 08, 2019 Time Seen by Provider: 08:45 CC: Cervical spine injury non-traumatic HPI: This is a 78yoWM who presented to the Hospital with significant compromise in function, was found to have significant cervical spine stenosis causing generalized weakness globally, that was complicated with delirium post- operatively in addition to a UTI diagnosis. Pt previously doctored with Dr. Tyler Danielson and did not see a regular lion hunter although he has had Bypass surgery and has known CAD. Pt was doing well but had a lengthy acute care course and is in need of significant rehabilitation, prior to returning home. He seems to be very depressed, very tearful when I meet him and reports that he is about to turn 79 next month. I have tried to reassure him and I have put in a behavioral health consult in for him because of obvious tearfulness and overwhelmed feeling and loss of independence that he will need to be aggressively treated for in order to return home safely. Previously he used a walker for the past 6 months prior to admission, had lumbar spine surgery then was discharged home and home PT Collette Ramos evaluated the Pt to have such se higinio weakness that he was total care so he was sent to the ER for workup and from there thing progressed into cervical spine MRI showing severe stenosis and Dr. Bhatt performed surgery with good results but was so severe it was a dural tear during the surgery and he has become quite debilitated. He is urinating well, hasn't had a BM in several days so will need to work on that when he is admitted into the inpatient rehab unit. Overall he will be aggressively treated in order to re-gain his independence in order to return home. Subjective/Events-last exam Pt failing inpatient rehab Drainage from the wound is just serous type Pt really is no longer any type of surgical candidate considering he had two major spine surgeries back to back Pt tearful because he knows he is failing but I tried reassure him and I had already started an antidepressant and had a behavioral health consult originally so will try to be as supportive was possible but pt is looking to be more likely like a custodial pt Will reach out to Dr. Bhatt to see if he will want any type of imaging scans and will continue supportive care in the meantime Check meds and labs Reviewed therapy notes Conferred with finance controller of Systems General: Fatigue Neurological: Weakness, Numbness, Incoordination Objective Exam Vital Signs Vital Signs Date Time Temp Pulse Resp B/P (MAP) Pulse Ox O2 Delivery O2 Flow Rate FiO2 08/09/19 08:36 Room Air 08/09/19 05:27 36.7 62 14 105/66 (79) 96 Capillary Refill : Less Than 3 Seconds General Appearance: No Apparent Distress, WD/WN, Chronically ill HEENT: PERRL/EOMI, Normal ENT Inspection, Pharynx Normal, Moist Mucous Membranes Neck: Full Range of Motion, Normal Inspection, Non Tender, Supple Respiratory: Lungs Clear, Normal Breath Sounds, No Respiratory Distress Cardiovascular: Regular Rate, Rhythm, No JVD Gastrointestinal: Normal Bowel Sounds, No Organomegaly, No Pulsatile Mass, Non Tender, Soft Back: Normal Inspection, No CVA Tenderness, Decreased Range of Motion Extremity: Normal Capillary Refill, Normal Inspection, Normal Range of Motion, Non Tender, No Calf Tenderness, No Pedal Edema Neurologic/Psychiatric: Alert, Oriented x3, Normal Mood/Affect, guitar repairer II-XII Norm as Tested, Motor Weakness (generalized all extremities 3/5) Skin: Normal Color, Warm/Dry Lymphatic: No Adenopathy Results/Procedures Lab Patient resulted labs reviewed. FIM Transfers Therapy Code Descriptions/Definitions Functional [place] Measure: 0=Not Assessed/NA 4=Minimal Assistance 1=Total Assistance 5=Supervision or Setup 2=Maximal Assistance 6=Modified [place] 3=Moderate Assistance 7=Complete IndependenceSCALE: Activities may be completed with or without assistive devices. 3-Jzhgzhqbjh-rtwkuxu completes the activity by him/herself with no assistance from a helper. 5-Set-up or Clean-up Assistance-helper sets up or cleans up; patient completes activity. [place] assists only prior to or following the activity. 4-Supervision or Touching Assistance-helper provides verbal cues and/or touching/steadying and/or contact guard assistance as patient completes activity. Assistance may be provided throughout the activity or intermittently. 3-Partial/Moderate Assistance-helper does LESS THAN HALF the effort. [place] lifts, holds or supports trunk or limbs, but provides less than half the effort. 2-Substantial/Maximal Assistance-helper does MORE THAN HALF the effort. [place] lifts or holds trunk or limbs and provides more than half the effort. 6-Gpojnkuqo-rebkbk does ALL the effort. Patient does none of the effort to complete the activity. Or, the assistance of 2 or more helpers is required for the patient to complete the activity. If activity was not attempted, code reason: 7-Patient Refused. 9-Not Applicable-not attempted and the patient did not perform the activity before the current illness, exacerbation or injury. 10-Not Attempted due to Environmental Limitations-(lack of equipment, weather restraints, etc.). 88-Not Attempted due to Medical Conditions or Safety Concerns. Transfers (B, C, W/C) (FIM): 3 Roll Left to Right (QC): 4 Sit to Lying (QC): 3 Sit to Stand (QC): 2 Chair/Wth-lt-Ufgxw Xfer(QC): 3 Bed to/from Chair: 4 Car Transfer (QC): 1 Gait Training Does the Patient Walk?: No and Walking Goal NOT indicated Gait (FIM): 5 Walk 10 feet (QC): 5 Walk 50 ft with 2 Turns(QC): 5 Walk 150 ft (QC): 5 Walking 10ft/uneven surface-QC: 88 Gait Persons Needed: 1 Gait Assistive Device: FWW Wheelchair Training Does the Pt Use a Wheelchair?: Yes Wheelchair (FIM): 1 Wheelchair Distance: 3=150 ft Distance: 100'x2 Wheel 50 ft with 2 turns (QC): 4 Wheel 150 ft (QC): 5 Type of Wheelchair: Manual ADL-Treatment Eating (QC): 4 (Pt opened sugar packets and poured sugar onto lid of his oatmeal. OT had to tell pt that he put the sugar on the lid, pt replied "I'm sorry". Pt was then able to remove lid of oatmeal and pour the sugar from the lid to the bowl. Pt was able to bring food from the bowl to his mouth without spilling any.) Groomin (Pt brushed hair at bed level, he was able to gather hair brush from side table and complete task without assistance.) Oral Hygiene (QC): 5 (Set up assist, OT brought pt dentures to bed level, pt was able to place dentures into mouth.) Bathing Location: L Arm, R Arm, L Upper Leg, R Upper Leg, Chest, Abdomen, Perineal Area Shower/Bathe Self (QC): 3 (Pt completed sponge bath at bed level, pt attempted to roll and clean buttocks, required assistance for thoroughness. Pt was unable to reach BLE lower legs requiring assistance. Pt required verbal cues for each step for sequencing of task, with restbreaks between washing of each body part.) Upper Body Dressing (QC): 5 Lower Body Dressing (QC): 2 (Pt was able to thread LLE into underwear, required assistance with all other parts of task. he attempted to thread RLE into underwear but was unsuccessful. OT assisted pt with threading BLE into pants and with managing pants/underwear up while pt rolled side to side.) On/Off Footwear (QC): 2 (OT educated pt on using sock aid to don socks. OT assisted pt with doffing socks, & demo'd use of sock aid. Pt able to don sock on left foot using sock aid, required assistance with right foot secondary to dressing on heel of foot) Toileting Hygiene (QC): 5 (Pt used urinal at bed level to void. Pt was able to obtain urinal from edge of bed and place onto bedside table once he had voided. OT assisted pt with emptying contents of urinal.) Toilet Transfer (QC): 1 (Pt able to perform SB transfer from EOB to drop arm commode with assist for hand placement and assist scooting across SB. Pt required x2 assist for squat pivot transfer from commode to recliner.) Assessment/Plan Assessment and Plan Assess & Plan/Chief Complaint Assessment: Spinal cord trauma from severe stenosis Debility CAD Delirium now improved s/p UTI completed treatment Constipation now resolved 07/28/19 HTN HLP Cognitive deficit SLUMS Depression Bladder incontinence Bowel incontinence Plan: Monitor bowel and bladder incontinence IRF protocol Increase strength with IRF protocols BM regimen to hold due to loose stools Started antidepressant Monitor BP s/p DC steroids Patient appears to be in need of nursing facility skilled care at discharge (1) Spinal cord injury (2) Generalized Weakness (3) Cervical spinal stenosis Status: Acute (4) Neuroforaminal stenosis of spine Status: Acute (5) Essential (primary) hypertension Status: Chronic (6) Lumbar spinal stenosis Status: Acute (7) Slipped intervertebral disc Status: Acute (8) Delirium Status: Acute (9) Incidental durotomy Status: Acute (10) CAD (coronary artery disease) Status: Chronic YANETH REEDER DO Aug 08, 2019 09:36
[2019-08-08] MEDS: POLYETHYLENE GLYCOL 17 GM (MIRALAX) PACK PO SCH ×2 (09:48→20:15)
[2019-08-08] MEDS: SENNA W/DOCUSATE (SENOKOT S) TABLET PO SCH ×2 (09:48→20:15)
[2019-08-08] MEDS: DOCUSATE CALCIUM 240 MG (SURFAK) CAP PO SCH ×2 (09:48→20:15)
[2019-08-08] MEDS: TOLTERODINE LA 4 MG (DETROL) CAP PO SCH (09:48)
[2019-08-08] MEDS: BACITRACIN OINTMENT 28 GM TUBE TOP SCH ×2 (09:49→20:17)
--- NOTE | 2019-08-08 10:01 | NUR ---
PT RECEIVED A CALL FROM DR. CARVER'S OFFICE TO REMIND OF APPT TOMORROW. PT TOLD THEM THAT HE WON'T BE ABLE TO MAKE IT D/T IN HOSPITAL, PT STATES THAT HE SEES HIM FOR PROSTATE PROBLEMS.
--- NOTE | 2019-08-08 10:15 | NUR ---
Notified Dr. Bhatt, as requested by Dr. Justice of serosanguineous drng from back incision. Cleansed area. No new orders.
--- NOTE | 2019-08-08 10:54 | Progress Note ---
PATRICKNIDIA SANCHEZ [facility] 08/08/19 1054: Progress Note CC: Post Lumbar Stenosis surgery Pt was seen by me on the first and second days of his inpatient rehab stay of which he was making good progress gaining some strength in his legs He previously was able to transfer from the bed to chair using a board. He has since then regressed and become unable to care for himself in most activities, and has not succeed in his rehab therapy He likely will required a nursing home home for care in the future Barriers: * Unable to sit up in bed unassisted * He has become wheelchair bound and unable to use a walker even with assistance due to leg weakness * He is not able to bath himself unassisted * He has had an increase in bowel and bladder incontinence increasing his burden for self care * He has right leg weakness that had improved, but now has regressed to being unable to flex his right hip * He is able to eat and drink, but states he has not been hungry * He is very tearful and depressed about his situation ADENIKE REEDER DO 08/09/192046: Supervisory-Addendum Brief Verification & Attestation Participated in pt care: history, MDM, physical Personally performed: exam, history, MDM, supervision of care Care discussed with: Medical Student Procedures: n/a Results interpretation: Verified all documentation Verification and Attestation of Medical Student E/M Service A medical student performed and documented this service in my presence. I reviewed and verified all information documented by the medical student and made modifications to such information, when appropriate. I personally performed the physical exam and medical decision making. Adenike Reeder, Aug 09, 2019,20:46 NIDIA NGUYEN [facility] Aug 08, 2019 10:54 ADENIKE REEDER DO Aug 09, 2019 20:47
--- NOTE | 2019-08-08 10:56 | Physical Therapy Daily Note ---
PT Daily Note-Current Subjective Patient in bed pre tx, agrees to PT, has 8-9/10 pain in his back, nurse is aware and he got pain meds. Patient has also been nauseated. Appearance Patient BTB post tx with nurse call, phone, tray, laying on left side for pressure relief. Mental Status Patient Orientation: Normal For Age Transfers SCALE: Activities may be completed with or without assistive devices. 7-Mwgjlsrfpt-meofbpk completes the activity by him/herself with no assistance from a helper. 5-Set-up or Clean-up Assistance-helper sets up or cleans up; patient completes activity. [place] assists only prior to or following the activity. 4-Supervision or Touching Assistance-helper provides verbal cues and/or touching/steadying and/or contact guard assistance as patient completes activity. Assistance may be provided throughout the activity or intermittently. 3-Partial/Moderate Assistance-helper does LESS THAN HALF the effort. [place] lifts, holds or supports trunk or limbs, but provides less than half the effort. 2-Substantial/Maximal Assistance-helper does MORE THAN HALF the effort. [place] lifts or holds trunk or limbs and provides more than half the effort. 0-Qcwvknpob-qcaesx does ALL the effort. Patient does none of the effort to complete the activity. Or, the assistance of 2 or more helpers is required for the patient to complete the activity. If activity was not attempted, code reason: 7-Patient Refused. 9-Not Applicable-not attempted and the patient did not perform the activity before the current illness, exacerbation or injury. 10-Not Attempted due to Environmental Limitations-(lack of equipment, weather restraints, etc.). 88-Not Attempted due to Medical Conditions or Safety Concerns. Roll Left to Right (QC): 4 Sit to Lying (QC): 3 Sit to Stand (QC): 2 Chair/Ppo-xh-Ougku Xfer(QC): 3 Mod assist with sliding board (4 transfers), mod assist for supine <-> sit, cues for hand placement and positioning, needs to practice log roll Weight Bearing Right Lower Extremity: Right Weight Bearing/Tolerated Left Lower Extremity: Left Weight Bearing/Tolerated Wheelchair Training Does the Pt Use a Wheelchair?: Yes Distance: 100'x2 Wheel 50 ft with 2 turns (QC): 4 Type of Wheelchair: Manual SBA, has difficulty turning corners occasionally Exercises Seated Therapy Exercises: Ankle pumps, Hip flexion, Hip abd/add (with pillow and RTB) Seated Reps: 20 LAQ alternating for 5 min, standing in parallel bars x3 for about 10 sec each time (decline in time standing) Treatments bed mobility and transfers, WC mobility, LE exercises, standing Assessment Current Status: Poor Progress significant pain, patient able to stand for less time than he did last week PT Short Term Goals Short Term Goals Time Frame: Aug 02, 2019 Wheelchair Distance: 100'x2 PT Dental Instrument Maker Goals Dental Instrument Maker Goals PT Dental Instrument Maker Goals Time Frame: Aug 16, 2019 Sit to Lying (QC): 3 (Olu) Lying-Sitting on Side/Bed(QC): 3 (Kofi) Sit to Stand (QC): 1 Roll Left to Right (QC): 3 (Olu) Chair/Frh-cb-Kwjet Xfer(QC): 3 (Olu) Car Transfer (QC): 1 Walk 10 feet (QC): 88 Walk 10ft-Uneven Surface(QC): 88 Walk 50ft with 2 Turns (QC): 88 Walk 150 ft (QC): 88 Wheel 50 feet with 2 turns (QC: 5 1 Step (curb) (QC): 88 4 Steps (QC): 88 12 Steps (QC): 88 Picking up an Object (QC): 88 PT Plan Problem List Problem List: Activity Tolerance, Functional Strength, Safety, Balance, Gait, Transfer, Bed Mobility, ROM Treatment/Plan Treatment Plan: Continue Plan of Care Treatment Plan: Bed Mobility, Concurrent Therapy, Education, Functional Activity Jesus Alberto, Functional Strength, Group Therapy, Gait, Safety, Therapeutic Exercise, Transfers Treatment Duration: Aug 16, 2019 Frequency: At least 5 of 7 days/Wk (IRF) Estimated Hrs Per Day: 1.5 hours per day Patient and/or Family Agrees t: Yes Safety Risks/Education Patient Education: Transfer Techniques, Correct Positioning, W/C Management, Safety Issues Teaching Recipient: Patient Teaching Methods: Demonstration, Discussion Response to Teaching: Reinforcement Needed Time/GCodes Time In: 1000 Time Out: 1100 Total Billed Treatment Time: 60 Total Billed Treatment 1 visit FA 30' EX 20' WCH 10' ALANA CISNEROS PT Aug 08, 2019 10:56
[2019-08-08] MEDS: CYCLOBENZAPRINE 10 MG (FLEXERIL) TAB PO PRN (13:48)
--- NOTE | 2019-08-08 14:36 | Speech Therapy Daily Note ---
Speech Daily Progress Note Subjective Date Seen by Provider: Aug 08, 2019 Time Seen by Provider: 00:30 Patient is in great deal of pain and was resting in bed when I entered his room. Objective Patient completed safety awareness tasks with 80% given 25% verbal instructions. Assessment Assessment Current Status: Good Progress Treatment Plan Continue Plan of Care Speech Short Term Goals Short Term Goals Short Term Goals 1) Patient will complete memory tasks related to his daily needs at 90% or greater, independently. 2) Patient will complete problem solving tasks related to his daily needs at 90% or greater, independently. 3) Patient will complete safety awareness tasks related to his daily needs at 90% or greater, independently. Speech Long-Term Goals Long-Term Goals Patient will improve cognitive-communication necessary for safety and daily living tasks with minimal assist. Speech-Plan Patient/Family Goals Patient/Family Goals: Patient plans to move in with his geronimo temporarily upon discharge. Treatment Plan Speech Therapy Treatment Plan: Continue Plan of Care Patient participated well with therapy today. Treatment Duration: Aug 12, 2019 Frequency: 5 times per week Estimated Hrs Per Day: .5 hour per day Rehab Potential: Fair Barriers to Learning: Patient's level of pain and mild cognitive deficits. Pt/Family Agrees to Plan: Yes Safety Risks/Education Teaching Recipient: Patient Teaching Methods: Demonstration, Discussion Response to Teaching: Verbalize Understanding, Return Demonstration Education Topics Provided: Continued safety within his room Time Speech Therapy Time In: 11:30 Speech Therapy Time Out: 12:00 Total Billed Time: 30 Billed Treatment Time [address] Aug 08, 2019 14:36
--- NOTE | 2019-08-08 15:20 | Physical Therapy Daily Note ---
PT Daily Note-Current Subjective Pt agreeable to PT. Reports he is tired this afternoon. Mental Status Patient Orientation: Person, Place, Time, Situation Transfers SCALE: Activities may be completed with or without assistive devices. 0-Zeckrraare-ktjkzab completes the activity by him/herself with no assistance from a helper. 5-Set-up or Clean-up Assistance-helper sets up or cleans up; patient completes activity. [place] assists only prior to or following the activity. 4-Supervision or Touching Assistance-helper provides verbal cues and/or touching/steadying and/or contact guard assistance as patient completes activity. Assistance may be provided throughout the activity or intermittently. 3-Partial/Moderate Assistance-helper does LESS THAN HALF the effort. [place] lifts, holds or supports trunk or limbs, but provides less than half the effort. 2-Substantial/Maximal Assistance-helper does MORE THAN HALF the effort. [place] lifts or holds trunk or limbs and provides more than half the effort. 6-Ldssdufgc-bixhvz does ALL the effort. Patient does none of the effort to complete the activity. Or, the assistance of 2 or more helpers is required for the patient to complete the activity. If activity was not attempted, code reason: 7-Patient Refused. 9-Not Applicable-not attempted and the patient did not perform the activity before the current illness, exacerbation or injury. 10-Not Attempted due to Environmental Limitations-(lack of equipment, weather restraints, etc.). 88-Not Attempted due to Medical Conditions or Safety Concerns. Weight Bearing Right Lower Extremity: Right Weight Bearing/Tolerated Left Lower Extremity: Left Weight Bearing/Tolerated Exercises Supine Ex: Ankle pumps, Quad Set, Glut sets, Heel Slides, Short Arc Quads, Hip abd/add Supine Reps: 15 (AAROM right LE due to functional weakness. ) Treatments Scooting and rolling in bed with training on sequencing and safety. Assessment Pt has functional weakness noted right LE. PT Short Term Goals Short Term Goals Time Frame: Aug 02, 2019 Wheelchair Distance: 100'x2 PT Assisted Goals Assisted Goals PT Business Insight And Analytics Manager Goals Time Frame: Aug 16, 2019 Sit to Lying (QC): 3 (Olu) Lying-Sitting on Side/Bed(QC): 3 (Kofi) Sit to Stand (QC): 1 Roll Left to Right (QC): 3 (Olu) Chair/Fom-ws-Wmfea Xfer(QC): 3 (Olu) Car Transfer (QC): 1 Walk 10 feet (QC): 88 Walk 10ft-Uneven Surface(QC): 88 Walk 50ft with 2 Turns (QC): 88 Walk 150 ft (QC): 88 Wheel 50 feet with 2 turns (QC: 5 1 Step (curb) (QC): 88 4 Steps (QC): 88 12 Steps (QC): 88 Picking up an Object (QC): 88 PT Plan Problem List Problem List: Activity Tolerance, Functional Strength, Safety, Transfer, Bed Mobility Treatment/Plan Treatment Plan: Continue Plan of Care Treatment Plan: Bed Mobility, Concurrent Therapy, Education, Functional Activity Jesus Alberto, Functional Strength, Group Therapy, Gait, Safety, Therapeutic Exercise, Transfers Treatment Duration: Aug 16, 2019 Frequency: At least 5 of 7 days/Wk (IRF) Estimated Hrs Per Day: 1.5 hours per day Patient and/or Family Agrees t: Yes Safety Risks/Education Patient Education: Safety Issues Teaching Recipient: Patient Teaching Methods: Discussion Response to Teaching: Reinforcement Needed Time/GCodes Time In: 1300 Time Out: 1324 Total Billed Treatment Time: 24 Total Billed Treatment visit EX 24 SNEHA ODONNELL PT Aug 08, 2019 15:20
--- NOTE | 2019-08-08 15:22 | Pulmonary Progress Note ---
Standard Progress Note Progress Notes Date Seen by Provider: Aug 08, 2019 Time Seen by Provider: 15:20 pt is resting in bed with eyes open and is alert and oriented. He denies shortness of breath; reports cough at times; with chills at times. He does have a back incision that is draining. He denies wearing oxygen. Assessment & Plan Lungs cta Cervical spinal stenosis/ Lumbar spinal stenosis -s/p L2-3 laminectomy PT/OT following COPD - stable ( reports no hx of) -COPD is stable continue SVNS -nebulizers QID -IS -Monitor -WBC reviewed and WNL -will continue to monitor hx of ROYAL -untreated (Admission, labs, images, and Dr. Rodriguez's inpt progress notes were reviewed for continued care) SATURNINO GUEVARA APRN Aug 08, 2019 15:22
[2019-08-08] MEDS ORDERED: SALIVA STIMULANT MOUTH SPRAY (BIOTENE) 1.5 OZ MM PRN (15:30)
[2019-08-08 16:20] VITALS: BP 99/64
[2019-08-08] MEDS: DONEPEZIL 10 MG (ARICEPT) TAB PO SCH (20:14)
[2019-08-08] MEDS: risperiDONE 0.25 MG (RisperDAL) TAB PO SCH (20:14)
[2019-08-08] MEDS: TERAZOSIN 5 MG (HYTRIN) CAPSULE PO SCH (20:14)
[2019-08-09 05:27] VITALS: BP 105/66
[2019-08-09] MEDS: LACTOBACILLUS ACIDOPHILUS (PROBIOTIC) CAPSULE PO SCH ×3 (05:51→16:30)
[2019-08-09] MEDS: PANTOPRAZOLE 40 MG (PROTONIX) TAB PO SCH (05:51)
[2019-08-09] MEDS: HYDROcodone/APAP 5 MG/325 MG (LORTAB) TAB PO PRN ×2 (05:52→21:54)
[2019-08-09] MEDS: CLOPIDOGREL 75 MG (PLAVIX) TABLET PO SCH (08:18)
[2019-08-09] MEDS: ASPIRIN E.C. 81 MG (ECOTRIN) TAB PO SCH (08:18)
[2019-08-09] MEDS: DULoxetine 30 MG (CYMBALTA) CAP PO SCH (08:18)
[2019-08-09] MEDS: TOLTERODINE LA 4 MG (DETROL) CAP PO SCH (08:18)
[2019-08-09] MEDS: LOSARTAN 25 MG (COZAAR) TAB PO SCH (08:18)
[2019-08-09] MEDS: CARVEDILOL 3.125 MG (COREG) TABLET PO SCH ×2 (08:18→20:54)
--- NOTE | 2019-08-09 08:19 | Progress Note ---
[facility] 08/09/19 0819: Subjective Date Seen by a Provider: Aug 09, 2019 Time Seen by a Provider: 07:40 Subjective/Events-last exam CC: Post Lumbar laminectomy * Pt reports sleeping through the night for the first time in a while * He reports feeling a little better today likely from the increased sleep * He states he has had a burning sensation when urinating for about 2 days but it is worse today * He reports more weakness in his arms today * His right leg is still weak but able to flex at the hip a little * His left leg is stronger and able to flex well * Still unable to use walker and requires a wheelchair Review of Systems Pulmonary: No Dyspnea, No Cough Cardiovascular: No: Chest Pain, Palpitations Genitourinary: Dysuria (Burning pain worse today), Incontinence Musculoskeletal: back pain; No: neck pain Neurological: Weakness; No: Numbness Focused Exam Respiratory: Chest Non Tender, Lungs Clear, Normal Breath Sounds, No Accessory Muscle Use, No Respiratory Distress Cardiovascular: Regular Rate, Rhythm, No Gallop, No Murmur Objective Exam Last Set of Vital Signs Vital Signs Date Time Temp Pulse Resp B/P (MAP) Pulse Ox O2 Delivery O2 Flow Rate FiO2 08/09/19 05:27 36.7 62 14 105/66 (79) 96 Room Air Capillary Refill : Less Than 3 Seconds I&O Intake and Output 08/09/19 00:00 Intake Total 925 ml Output Total 300 ml Balance 625 ml Intake Oral 925 ml Output Urine Total 300 ml # Voids 3 # Urine Diapers 3 # Bowel Movements 1 General: Alert, Oriented X3 Lungs: Clear to Auscultation, Normal Air Movement Heart: Regular Rate, No Murmurs Extremities: No Tenderness/Swelling, Other (Weakness in right leg) Neuro: Normal Speech, Normal Tone, Sensation Intact Assessment/Plan Assessment/Plan Assess & Plan/Chief Complaint Assessment: generalized weakness bilateral lower extremities right more severe than left s/p L2-L3 laminectomy Hypertension Hyperlipidemia Pain with urination x2 days Plan: Continue OT/PT to regain strength in lower extremities Monitor hypertension, continue medications Obtain UA to assess for UTI Clinical Quality Measures DVT/VTE Risk/Contraindication: Risk Factor Score Per Nursin RFS Level Per Nursing on Admit: 4+=Very High ADENIKE REEDER DO 08/09/192050: Supervisory-Addendum Brief Verification & Attestation Participated in pt care: history, MDM, physical Personally performed: exam, history, MDM, supervision of care Care discussed with: Medical Student Procedures: n/a Results interpretation: Verified all documentation Verification and Attestation of Medical Student E/M Service A medical student performed and documented this service in my presence. I reviewed and verified all information documented by the medical student and made modifications to such information, when appropriate. I personally performed the physical exam and medical decision making. Adenike Reeder, Aug 09, 2019,20:51 [facility] Aug 09, 2019 08:19 ADENIKE REEDER DO Aug 09, 2019 20:51
[2019-08-09] MEDS: BACITRACIN OINTMENT 28 GM TUBE TOP SCH ×2 (08:20→21:20)
[2019-08-09] MEDS: LORATADINE (CLARITIN) 10 MG TAB PO SCH (08:51)
[2019-08-09] MEDS: POLYETHYLENE GLYCOL 17 GM (MIRALAX) PACK PO SCH ×2 (08:51→20:59)
[2019-08-09] MEDS: BISACODYL 10 MG SUPP (DULCOLAX) PR SCH ×2 (08:52→20:59)
[2019-08-09] MEDS: SENNA W/DOCUSATE (SENOKOT S) TABLET PO SCH ×2 (08:52→20:55)
[2019-08-09] MEDS: DOCUSATE CALCIUM 240 MG (SURFAK) CAP PO SCH ×2 (08:52→20:54)
--- NOTE | 2019-08-09 09:18 | PM&R Progress Note ---
Subjective HPI/CC On Admission Date Seen by Provider: Aug 09, 2019 Time Seen by Provider: 08:30 CC: Cervical spine injury non-traumatic HPI: This is a 78yoWM who presented to the Hospital with significant compromise in function, was found to have significant cervical spine stenosis causing generalized weakness globally, that was complicated with delirium post- operatively in addition to a UTI diagnosis. Pt previously doctored with Dr. 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 Pt was doing well but had a lengthy acute care course and is in need of significant rehabilitation, prior to returning home. He seems to be very depressed, very tearful when I meet him and reports that he is about to turn 79 next month. I have tried to reassure him and I have put in a behavioral health consult in for him because of obvious tearfulness and overwhelmed feeling and loss of independence that he will need to be aggressively treated for in order to return home safely. Previously he used a walker for the past 6 months prior to admission, had lumbar spine surgery then was discharged home and home PT Collette Ramos evaluated the Pt to have such se higinio weakness that he was total care so he was sent to the ER for workup and from there thing progressed into cervical spine MRI showing severe stenosis and Dr. Bhatt performed surgery with good results but was so severe it was a dural tear during the surgery and he has become quite debilitated. He is urinating well, hasn't had a BM in several days so will need to work on that when he is admitted into the inpatient rehab unit. Overall he will be aggressively treated in order to re-gain his independence in order to return home. Subjective/Events-last exam Pt doing pretty well today. Had better sleep last night and it seems to have really helped him. Dr. Bhatt was sent a picture of the wound and everything seems to be healing well with local wound care. Pt feels a little more optimistic today. Having pain and burning on urination so will do an in-and-out cath and order a UA because he did have a UTI that was fully treated when he came down to rehab. Pt still having real difficulty with performing on an independent level status, so will likely need to go to the long-term, so will initiate the team meeting tomorrow at 1, to discuss that. Check meds and labs Reviewed therapy notes Conferred with RN After rounds UA obtained via in/out cath and revealed evidence of UTI so place on Bactrim empirically based on previous UCx and check labs in morning Review of Systems General: Fatigue Musculoskeletal: back pain Neurological: Weakness, Numbness, Incoordination Objective Exam Vital Signs Vital Signs Date Time Temp Pulse Resp B/P (MAP) Pulse Ox O2 Delivery O2 Flow Rate FiO2 08/09/19 16:11 36.3 69 14 102/66 (78) 95 Room Air Capillary Refill : Less Than 3 Seconds General Appearance: No Apparent Distress, WD/WN, Chronically ill HEENT: PERRL/EOMI, Normal ENT Inspection, Pharynx Normal, Moist Mucous Membranes Neck: Full Range of Motion, Normal Inspection, Non Tender, Supple Respiratory: Chest Non Tender, Lungs Clear, Normal Breath Sounds, No Accessory Muscle Use, No Respiratory Distress Cardiovascular: Regular Rate, Rhythm, No Gallop, No Murmur Gastrointestinal: Normal Bowel Sounds, No Organomegaly, No Pulsatile Mass, Non Tender, Soft Back: Normal Inspection, No CVA Tenderness, Decreased Range of Motion Extremity: Normal Capillary Refill, Normal Inspection, Normal Range of Motion, Non Tender, No Calf Tenderness, No Pedal Edema Neurologic/Psychiatric: Alert, Oriented x3, Normal Mood/Affect, cap sewer II-XII Norm as Tested, Motor Weakness Skin: Normal Color, Warm/Dry Lymphatic: No Adenopathy Results/Procedures Lab Patient resulted labs reviewed. FIM Transfers Therapy Code Descriptions/Definitions Functional [place] Measure: 0=Not Assessed/NA 4=Minimal Assistance 1=Total Assistance 5=Supervision or Setup 2=Maximal Assistance 6=Modified [place] 3=Moderate Assistance 7=Complete IndependenceSCALE: Activities may be completed with or without assistive devices. 3-Pbqyyvljgv-uscqnol completes the activity by him/herself with no assistance from a helper. 5-Set-up or Clean-up Assistance-helper sets up or cleans up; patient completes activity. [place] assists only prior to or following the activity. 4-Supervision or Touching Assistance-helper provides verbal cues and/or touching/steadying and/or contact guard assistance as patient completes activity. Assistance may be provided throughout the activity or intermittently. 3-Partial/Moderate Assistance-helper does LESS THAN HALF the effort. [place] lifts, holds or supports trunk or limbs, but provides less than half the effort. 2-Substantial/Maximal Assistance-helper does MORE THAN HALF the effort. [place] lifts or holds trunk or limbs and provides more than half the effort. 5-Nvxolnpmc-qhgtqg does ALL the effort. Patient does none of the effort to complete the activity. Or, the assistance of 2 or more helpers is required for the patient to complete the activity. If activity was not attempted, code reason: 7-Patient Refused. 9-Not Applicable-not attempted and the patient did not perform the activity before the current illness, exacerbation or injury. 10-Not Attempted due to Environmental Limitations-(lack of equipment, weather restraints, etc.). 88-Not Attempted due to Medical Conditions or Safety Concerns. Transfers (B, C, W/C) (FIM): 3 Roll Left to Right (QC): 4 Sit to Lying (QC): 3 Sit to Stand (QC): 2 Chair/Rpb-ex-Yilxl Xfer(QC): 3 Bed to/from Chair: 4 Car Transfer (QC): 1 Gait Training Does the Patient Walk?: No and Walking Goal NOT indicated Gait (FIM): 5 Walk 10 feet (QC): 5 Walk 50 ft with 2 Turns(QC): 5 Walk 150 ft (QC): 5 Walking 10ft/uneven surface-QC: 88 Gait Persons Needed: 1 Gait Assistive Device: FWW Wheelchair Training Does the Pt Use a Wheelchair?: Yes Wheelchair (FIM): 1 Wheelchair Distance: 3=150 ft Distance: 100'x2 Wheel 50 ft with 2 turns (QC): 4 Wheel 150 ft (QC): 5 Type of Wheelchair: Manual ADL-Treatment Eating (QC): 4 (Pt opened sugar packets and poured sugar onto lid of his oatmeal. OT had to tell pt that he put the sugar on the lid, pt replied "I'm sorry". Pt was then able to remove lid of oatmeal and pour the sugar from the lid to the bowl. Pt was able to bring food from the bowl to his mouth without spilling any.) Groomin (Pt brushed hair at bed level, he was able to gather hair brush from side table and complete task without assistance.) Oral Hygiene (QC): 5 Bathing Location: L Arm, R Arm, Chest, Abdomen, Perineal Area Shower/Bathe Self (QC): 3 Upper Body Dressing (QC): 5 Lower Body Dressing (QC): 2 On/Off Footwear (QC): 2 (OT educated pt on using sock aid to don socks. OT assisted pt with doffing socks, & demo'd use of sock aid. Pt able to don sock on left foot using sock aid, required assistance with right foot secondary to dressing on heel of foot) Toileting Hygiene (QC): 5 (Pt used urinal at bed level to void. Pt was able to obtain urinal from edge of bed and place onto bedside table once he had voided. OT assisted pt with emptying contents of urinal.) Toilet Transfer (QC): 1 (Pt able to perform SB transfer from EOB to drop arm commode with assist for hand placement and assist scooting across SB. Pt required x2 assist for squat pivot transfer from commode to recliner.) Assessment/Plan Assessment and Plan Assess & Plan/Chief Complaint Assessment: Spinal cord trauma from severe stenosis Debility CAD Delirium now improved s/p UTI completed treatment but now symptoms again and confirmed another UTI so place on Bactrim empirically awaiting UCx Constipation now resolved 07/28/19 HTN HLP Cognitive deficit SLUMS Depression Bladder incontinence Bowel incontinence Plan: Monitor bowel and bladder incontinence IRF protocol Increase strength with IRF protocols BM regimen to hold due to loose stools Started antidepressant Monitor BP s/p DC steroids Patient appears to be in need of nursing facility skilled care at discharge (1) Spinal cord injury (2) Generalized Weakness (3) Cervical spinal stenosis Status: Acute (4) Neuroforaminal stenosis of spine Status: Acute (5) Essential (primary) hypertension Status: Chronic (6) Lumbar spinal stenosis Status: Acute (7) Slipped intervertebral disc Status: Acute (8) Delirium Status: Acute (9) Incidental durotomy Status: Acute (10) CAD (coronary artery disease) Status: Chronic YANETH REEDER DO Aug 09, 2019 09:18
--- NOTE | 2019-08-09 09:42 | NUR ---
Notified Dr. Bhatt of back incision serosanguineous drng., & areas of slough at upper & lower aspects of incision. Pt does report his pain as improved today, states that he slept better last night. Pt ate 4 biscuits & gravy for breakfast this morning, appetite improved also.
--- NOTE | 2019-08-09 10:08 | Speech Therapy Daily Note ---
Speech Daily Progress Note Subjective Date Seen by Provider: Aug 09, 2019 Time Seen by Provider: 00:30 Patient was resting in bed. He stated he is feeling better today. Objective Patient completed a series of memory exercises related to his daily needs at his home with 85% accuracy given 20% verbal cuing. Assessment Assessment Current Status: Good Progress Treatment Plan Continue Plan of Care Speech Short Term Goals Short Term Goals Short Term Goals 1) Patient will complete memory tasks related to his daily needs at 90% or greater, independently. 2) Patient will complete problem solving tasks related to his daily needs at 90% or greater, independently. 3) Patient will complete safety awareness tasks related to his daily needs at 90% or greater, independently. Speech Key Person Goals Care Home Goals Patient will improve cognitive-communication necessary for safety and daily living tasks with minimal assist. Speech-Plan Patient/Family Goals Patient/Family Goals: Patient plans on returning home or with his grandauter temporarily until he is able to be independent. Treatment Plan Speech Therapy Treatment Plan: Continue Plan of Care Treatment Duration: Aug 12, 2019 Frequency: 5 times per week Estimated Hrs Per Day: .5 hour per day Rehab Potential: Fair Barriers to Learning: Patient has mild cognitive deficits. Pt/Family Agrees to Plan: Yes Safety Risks/Education Teaching Recipient: Patient Teaching Methods: Demonstration, Discussion Response to Teaching: Verbalize Understanding, Return Demonstration Education Topics Provided: Continued safety within his environment. Time Speech Therapy Time In: 09:15 Speech Therapy Time Out: 09:45 Total Billed Time: 30 Billed Treatment Time 1, PATRICIA Rae Aug 09, 2019 10:08
--- NOTE | 2019-08-09 10:58 | Physical Therapy Daily Note ---
PT Daily Note-Current Subjective Pt in bed pre-treatment. Pt agrees to PT. Pt reports decreased pain from yesterday. Patient has some dried blood on his shirt, nurse notified and she put a protective bandage on his back. Appearance Pt in bed pre-treatment laying on left side with pillow support. Pt with nurse call button, room phone, and tray table in reach. Mental Status Patient Orientation: Normal For Age Transfers SCALE: Activities may be completed with or without assistive devices. 0-Cocefngszz-npgnovo completes the activity by him/herself with no assistance from a helper. 5-Set-up or Clean-up Assistance-helper sets up or cleans up; patient completes activity. [place] assists only prior to or following the activity. 4-Supervision or Touching Assistance-helper provides verbal cues and/or touching/steadying and/or contact guard assistance as patient completes activity. Assistance may be provided throughout the activity or intermittently. 3-Partial/Moderate Assistance-helper does LESS THAN HALF the effort. [place] lifts, holds or supports trunk or limbs, but provides less than half the effort. 2-Substantial/Maximal Assistance-helper does MORE THAN HALF the effort. [place] lifts or holds trunk or limbs and provides more than half the effort. 0-Uxyjrhccp-kyssqf does ALL the effort. Patient does none of the effort to complete the activity. Or, the assistance of 2 or more helpers is required for the patient to complete the activity. If activity was not attempted, code reason: 7-Patient Refused. 9-Not Applicable-not attempted and the patient did not perform the activity before the current illness, exacerbation or injury. 10-Not Attempted due to Environmental Limitations-(lack of equipment, weather restraints, etc.). 88-Not Attempted due to Medical Conditions or Safety Concerns. Roll Left to Right (QC): 3 Sit to Lying (QC): 3 Chair/Mrb-wr-Ypdcd Xfer(QC): 3 Pt min A for supine <-> sit EOB. Pt with improved log roll for sit >supine. Pt Olu for slide board <-> EOB for board safety. Weight Bearing Right Lower Extremity: Right Weight Bearing/Tolerated Left Lower Extremity: Left Weight Bearing/Tolerated Wheelchair Training Does the Pt Use a Wheelchair?: Yes Wheelchair Distance: 1=181-91 ft Wheel 50 ft with 2 turns (QC): 4 Wheel 150 ft (QC): 4 Type of Wheelchair: Manual Pt uses B/L UE for W/C ambulation. Pt performs weaving W/C through 6 cones set up 20' x2 Exercises Supine Ex: Ankle pumps, Quad Set, Glut sets Supine Reps: 15 Seated Therapy Exercises: Ankle pumps, Sit to stand (4 reps. standing to pt august[place]. 30- 45sec), Long arc quads, Kicking activity (5 min alternating LE) Seated Reps: 15 (Hip Abduction with Red Tbd, Hip adduction with soccer all, seated marching) Assessment Current Status: Good Progress Pt [place] increased stand time from previous session. Pt demonstrates slight increase in R LE use. Pt demonstrates improved log roll for sit to supine from previous session PT Short Term Goals Short Term Goals Time Frame: Aug 02, 2019 Wheelchair Distance: 100'x2 PT Custodial Goals Surveillance Technician Goals PT Surveillance Technician Goals Time Frame: Aug 16, 2019 Sit to Lying (QC): 3 (Olu) Lying-Sitting on Side/Bed(QC): 3 (Kofi) Sit to Stand (QC): 1 Roll Left to Right (QC): 3 (Olu) Chair/Azx-fw-Msxes Xfer(QC): 3 (Olu) Car Transfer (QC): 1 Walk 10 feet (QC): 88 Walk 10ft-Uneven Surface(QC): 88 Walk 50ft with 2 Turns (QC): 88 Walk 150 ft (QC): 88 Wheel 50 feet with 2 turns (QC: 5 1 Step (curb) (QC): 88 4 Steps (QC): 88 12 Steps (QC): 88 Picking up an Object (QC): 88 PT Plan Problem List Problem List: Activity Tolerance, Functional Strength, Safety, Balance, Gait, Transfer, Bed Mobility Treatment/Plan Treatment Plan: Continue Plan of Care Treatment Plan: Bed Mobility, Concurrent Therapy, Education, Functional Activity Jesus Alberto, Functional Strength, Group Therapy, Gait, Safety, Therapeutic Exercise, Transfers Treatment Duration: Aug 16, 2019 Frequency: At least 5 of 7 days/Wk (IRF) Estimated Hrs Per Day: 1.5 hours per day Patient and/or Family Agrees t: Yes Safety Risks/Education Patient Education: Transfer Techniques, Correct Positioning, W/C Management, Safety Issues Teaching Recipient: Patient Teaching Methods: Demonstration, Discussion Response to Teaching: Verbalize Understanding, Reinforcement Needed Time/GCodes Time In: 1000 Time Out: 1100 Total Billed Treatment Time: 60 Total Billed Treatment 1 visit. 35' FA 25' Ex ALANA CISNEROS PT Aug 09, 2019 10:57
--- NOTE | 2019-08-09 11:05 | Occupational Ther Daily Note ---
OT Current Status-Daily Note Subjective Pt in bed, agrees to therapy, states he is feeling better today. Reports 5/10 back pain. ADL-Treatment Pt eating breakfast without assist when therapist arrives. Would like a sponge bath this morning. Pt supine to sit with min assist. Sponge bath completed seated EOB. Upper body bathing completed with SBA. Pt able to wash bilateral upper legs, uses long handled sponge to wash lower legs and feet. Assist to wash buttocks. Don pullover shirt with set up. Pt returned to supine for lower body dressing. Assist required to thread bilateral LE into Depends and pants. Rolled left and right to complete pant hike. Pt able to assist minimally with pant hike. Sat EOB to don socks with min assist. Transfer EOB to w/c with sliding board. Pt requires assist place sliding board and to initiate transfer. Also requires assist to remove sliding board after transfer. Skilled cues for safety and transfer technique. Pt combed hair with set up while seated. Pt fatigues quickly with activity and requires rest breaks throughout ADLs. Therapy Code Descriptions/Definitions Functional [place] Measure: 0=Not Assessed/NA 4=Minimal Assistance 1=Total Assistance 5=Supervision or Setup 2=Maximal Assistance 6=Modified [place] 3=Moderate Assistance 7=Complete IndependenceSCALE: Activities may be completed with or without assistive devices. 0-Ywnpvuofws-dxmdjyv completes the activity by him/herself with no assistance from a helper. 5-Set-up or Clean-up Assistance-helper sets up or cleans up; patient completes activity. [place] assists only prior to or following the activity. 4-Supervision or Touching Assistance-helper provides verbal cues and/or touching/steadying and/or contact guard assistance as patient completes activity. Assistance may be provided throughout the activity or intermittently. 3-Partial/Moderate Assistance-helper does LESS THAN HALF the effort. [place] lifts, holds or supports trunk or limbs, but provides less than half the effort. 2-Substantial/Maximal Assistance-helper does MORE THAN HALF the effort. [place] lifts or holds trunk or limbs and provides more than half the effort. 4-Sbxdxooxh-xhmuvt does ALL the effort. Patient does none of the effort to complete the activity. Or, the assistance of 2 or more helpers is required for the patient to complete the activity. If activity was not attempted, code reason: 7-Patient Refused. 9-Not Applicable-not attempted and the patient did not perform the activity before the current illness, exacerbation or injury. 10-Not Attempted due to Environmental Limitations-(lack of equipment, weather restraints, etc.). 88-Not Attempted due to Medical Conditions or Safety Concerns. Shower/Bathe Self (QC): 3 Upper Body Dressing (QC): 5 Lower Body Dressing (QC): 2 Other Treatment Pt performed w/c mobility to therapy gym with slow pace. Pt performed bilateral UE exercises to increase strength and activity tolerance needed for functional task completion. Pt performed four exercises x15 reps with dowel katya. Rest breaks between exercises. Pt completed resistance peg activity with bilateral UE with 1# weights in place to increase strength and coordination/manipulation skills. Increased time for task. Pt returned to room and transferred back to bed with sliding board with min assist. Pt in bed with needs met after session. OT Short Term Goals Short Term Goals Lower Body Dressing(FIM): 3 Toilet/Commode Transfer(FIM): 3 Additional Short Term Goals: 1-Demonstrate ADL Tasks, 2-Verbalize Understanding, 3-ImproveStrength/Jesus Alberto 1=Demonstrate adherence to instructed precautions during ADL tasks. 2=Patient will verbalize/demonstrate understanding of assistive devices/modifications for ADL. 3=Patient will improve strength/tolerance for activity to enable patient to perform ADL's. OT Skilled Nursing Goals Skilled Nursing Goals Eating (QC): 6 Oral Hygiene (QC): 6 Shower/Bathe Self (QC): 6 Upper Body Dressing (QC): 6 Lower Body Dressing (QC): 5 On/Off Footwear (QC): 6 Toileting Hygiene (QC): 5 Toilet/Commode Transfer (QC): 5 Additional Goals: 1-Demonstrate ADL Tasks, 2-Verbalize Understanding, 3- ImproveStrength/Jesus Alberto 1=Demonstrate adherence to instructed precautions during ADL tasks. 2=Patient will verbalize/demonstrate understanding of assistive devices/modifications for ADL. 3=Patient will improve strength/tolerance for activity to enable patient to perform ADL's. OT Education/Plan Discharge Recommendations Plan/Recommendations: Continue POC Treatment Plan/Plan of Care Patient would benefit from OT for education, treatment and training to promote independence in ADL's, mobility, safety and/or upper extremity function for ADL's. Plan of Care: ADL Retraining, Caregiver Training, Concurrent Therapy, Functional Mobility, Group Exercise/Act as Ind, UE Funct Exercise/Act Treatment Duration: Jul 27, 2019 Frequency: At least 5 of 7 days/Wk (IRF) Estimated Hrs Per Day: 1.5 hours per day Agreement: Yes Rehab Potential: Fair Time/GCodes Start Time: 08:00 Stop Time: 09:15 Total Time Billed (hr/min): 75 Billed Treatment Time 1 visit, ADLx3(45minutes), EXx2(30minutes) LISANDRO STONE OT Aug 09, 2019 11:05
--- NOTE | 2019-08-09 12:58 | NUR ---
RD FOLLOW-UP PMHx: CAD; HTN; OH; chronic constipation PT INTERACTION: Pt was awake and pleasant for nutrition follow-up. Pt states that he is eating better. Note pt has consumed 68% of meals x4d. Pt states some episodes of nausea over the last week. Note currently on zofran PRN. Pt states no issues with constipation, but RN stated pt had "a little diarrhea." Note pt currently on bowel regimen of docusate, miralax, and senna. ABNORMAL NUTRITION-RELATED LAB VALUES: Hgb 13.0 (L); Hct 39 (L); Pro 5.9 (L); alb 3.1 (L); BUN 22 (H); glu 108 (H) Est. kcal needs: 9802-0101 kcal (25-30 kcal/kg) Est. Pro needs: 82-99 g Pro (1.0-1.2 g Pro/kg) PES STATEMENT: Inadequate oral intake (NI-2.1) related to loss of appetite as evidenced by <75% of meals consumed x4d | pt interview INTERVENTION: Continue with current diet order of regular diet. Encouraged pt to eat when able. Pt may benefit from nutrition supplementation if po intake declines. Will continue to follow. MONITOR/EVALUATE: PO Intake; Plan of Care; Hydration Status; Weight Status; Lab Values Efe Mendez, MS, RD, LD Ext. [phone]
--- NOTE | 2019-08-09 13:32 | Physical Therapy Daily Note ---
PT Daily Note-Current Subjective Pt in bed pre-treatment. Pt agrees to PT. Pt reports decreased pain in back to 6/10 at this time. Appearance Pt in W/C post-treatment. Pt with nurse call button, room phone, and tray table in reach. Mental Status Patient Orientation: Normal For Age Transfers SCALE: Activities may be completed with or without assistive devices. 0-Oyfepatumg-dqaaoiw completes the activity by him/herself with no assistance from a helper. 5-Set-up or Clean-up Assistance-helper sets up or cleans up; patient completes activity. [place] assists only prior to or following the activity. 4-Supervision or Touching Assistance-helper provides verbal cues and/or touching/steadying and/or contact guard assistance as patient completes activity. Assistance may be provided throughout the activity or intermittently. 3-Partial/Moderate Assistance-helper does LESS THAN HALF the effort. [place] lifts, holds or supports trunk or limbs, but provides less than half the effort. 2-Substantial/Maximal Assistance-helper does MORE THAN HALF the effort. [place] lifts or holds trunk or limbs and provides more than half the effort. 6-Uwzearntr-jxsunc does ALL the effort. Patient does none of the effort to complete the activity. Or, the assistance of 2 or more helpers is required for the patient to complete the activity. If activity was not attempted, code reason: 7-Patient Refused. 9-Not Applicable-not attempted and the patient did not perform the activity before the current illness, exacerbation or injury. 10-Not Attempted due to Environmental Limitations-(lack of equipment, weather restraints, etc.). 88-Not Attempted due to Medical Conditions or Safety Concerns. Sit to Lying (QC): 4 Pt performed bed <-> W/C slide board transfers X6 this date with Min assist for board set up and safety. Pt has started to remove slide board following the transfers. Pt improving use of UE for clearing pants from getting wedged under board. Weight Bearing Right Lower Extremity: Right Weight Bearing/Tolerated Left Lower Extremity: Left Weight Bearing/Tolerated Wheelchair Training Distance: 100' Wheel 50 ft with 2 turns (QC): 4 Wheel 150 ft (QC): 4 Type of Wheelchair: Manual Pt self propels manual W/C 100 feet between room and gym and back using B/L UE's (including atleast 50' with 2 turns) Assessment Current Status: Fair Progress improving sliding board transfer PT Short Term Goals Short Term Goals Time Frame: Aug 02, 2019 Wheelchair Distance: 100'x2 PT Mcfp Goals Mcfp Goals PT Mcfp Goals Time Frame: Aug 16, 2019 Sit to Lying (QC): 3 (Olu) Lying-Sitting on Side/Bed(QC): 3 (Kofi) Sit to Stand (QC): 1 Roll Left to Right (QC): 3 (Olu) Chair/Yzg-ea-Axzrt Xfer(QC): 3 (Olu) Car Transfer (QC): 1 Walk 10 feet (QC): 88 Walk 10ft-Uneven Surface(QC): 88 Walk 50ft with 2 Turns (QC): 88 Walk 150 ft (QC): 88 Wheel 50 feet with 2 turns (QC: 5 1 Step (curb) (QC): 88 4 Steps (QC): 88 12 Steps (QC): 88 Picking up an Object (QC): 88 PT Plan Problem List Problem List: Activity Tolerance, Functional Strength, Safety, Balance, Gait, Transfer, Bed Mobility, ROM Treatment/Plan Treatment Plan: Continue Plan of Care Treatment Plan: Bed Mobility, Concurrent Therapy, Education, Functional Activity Jesus Alberto, Functional Strength, Group Therapy, Gait, Safety, Therapeutic Exercise, Transfers Treatment Duration: Aug 16, 2019 Frequency: At least 5 of 7 days/Wk (IRF) Estimated Hrs Per Day: 1.5 hours per day Patient and/or Family Agrees t: Yes Safety Risks/Education Patient Education: Transfer Techniques, Correct Positioning, W/C Management, Safety Issues Teaching Recipient: Patient Teaching Methods: Demonstration, Discussion Response to Teaching: Verbalize Understanding, Reinforcement Needed Time/GCodes Time In: 1255 Time Out: 1325 Total Billed Treatment Time: 30 Total Billed Treatment 1 visit 30' ALANA CASTILLO PT Aug 09, 2019 13:32
[2019-08-09] MEDS: CYCLOBENZAPRINE 10 MG (FLEXERIL) TAB PO PRN (14:28)
[2019-08-09 15:00] LABS: BILIRUBIN,URINE NEGATIVE (NEGATIVE); CLARITY,URINE CLEAR; COLOR,URINE YELLOW; GLUCOSE, URINE (UA) NEGATIVE (NEGATIVE); KETONES,URINE 1+ (NEGATIVE); LEUKOCYTE ESTERASE ,URINE 3+ (NEGATIVE); NITRITE,URINE POSITIVE (NEGATIVE); PH,URINE 5 (5-9); PROTEIN,URINE 2+ (NEGATIVE)
--- NOTE | 2019-08-09 15:30 | NUR ---
Pt states that he had to do straight catheterizations himself for several weeks as recommended by his urologist, Dr. Robles. Pt states that this was approx 1 year ago.
--- NOTE | 2019-08-09 15:39 | NUR ---
Bladder scan showed 0cc after in/out st cath performed. Only 50cc lt kaia urine obtained per st cath. Instr. pt to increase fluid intake.
[2019-08-09 15:47] LABS: BACTERIA,URINE LARGE /HPF; WBC,URINE 25-50 /HPF
[2019-08-09 16:11] VITALS: BP 102/66
--- NOTE | 2019-08-09 18:40 | NUR ---
Assisted pt to reposition, Dr. Justice notified of UA results.
--- NOTE | 2019-08-09 19:08 | NUR ---
bedside report received from LEESA KERR, assume care of pt
[2019-08-09] MEDS ORDERED: TRIM/SULFAMETH 160/800 (SEPTRA DS) TAB PO NR (20:15)
[2019-08-09 20:51] VITALS: BP 104/65
[2019-08-09] MEDS: DONEPEZIL 10 MG (ARICEPT) TAB PO SCH (20:54)
[2019-08-09] MEDS: risperiDONE 0.25 MG (RisperDAL) TAB PO SCH (20:54)
[2019-08-09] MEDS: TERAZOSIN 5 MG (HYTRIN) CAPSULE PO SCH (20:54)
--- NOTE | 2019-08-09 20:54 | NUR ---
pt took Surfak 240mg & 1 Senokot & refused Dulcolax suppository & miralax
--- NOTE | 2019-08-09 20:55 | NUR ---
back incision cleaned & applied bacitracin ointment
--- NOTE | 2019-08-09 21:54 | NUR ---
c/o pain to knee level 5/10 on numeric scale, Lortab 5 1 tab po given
--- NOTE | 2019-08-09 22:35 | NUR ---
resting quietly in bed, pain level 0/10 on flacc scale
[2019-08-10 05:20] VITALS: BP 101/60
[2019-08-10 06:01] LABS: BASOPHILS % (AUTO) 0 % (0-10); EOSINOPHILS # (AUTO) 0.2 10^3/uL (0.0-0.3); EOSINOPHILS % (AUTO) 2 % (0-10); HEMATOCRIT 37 % (40-54); HEMOGLOBIN 12.2 G/DL (13.3-17.7); LYMPHOCYTES # (AUTO) 1.1 X 10^3 (1.0-4.0); LYMPHOCYTES % (AUTO) 13 % (12-44); MEAN CORPUSCULAR HEMOGLOBIN 31 PG (25-34); MEAN CORPUSCULAR HGB CONC 33 G/DL (32-36); MEAN CORPUSCULAR VOLUME 93 FL (80-99); MEAN PLATELET VOLUME 9.4 FL (7.4-10.4); MONOCYTES # (AUTO) 0.6 X 10^3 (0.0-1.0); MONOCYTES % (AUTO) 7 % (0-12); NEUTROPHILS # (AUTO) 6.8 X 10^3 (1.8-7.8); NEUTROPHILS % (AUTO) 79 % (42-75); PLATELET COUNT 222 10^3/uL (130-400); RED CELL DISTRIBUTION WIDTH 13.5 % (10.0-14.5); WHITE BLOOD COUNT 8.7 10^3/uL (4.3-11.0)
[2019-08-10 06:20] LABS: ALANINE AMINOTRANSFERASE 16 U/L (0-55); ALKALINE PHOSPHATASE 93 U/L (40-136); BILIRUBIN,TOTAL 0.5 MG/DL (0.1-1.0); BUN/CREATININE RATIO 34; CALCIUM 8.5 MG/DL (8.5-10.1); CARBON DIOXIDE 22 MMOL/L (21-32); CHLORIDE 106 MMOL/L (98-107); CREATININE SERUM 0.83 MG/DL (0.60-1.30); GFR ESTIMATED > 60; GLUCOSE 92 MG/DL (70-105); POTASSIUM 3.8 MMOL/L (3.6-5.0); SODIUM 139 MMOL/L (135-145); TOTAL PROTEIN 5.8 GM/DL (6.4-8.2)
[2019-08-10] MEDS: LACTOBACILLUS ACIDOPHILUS (PROBIOTIC) CAPSULE PO SCH ×3 (06:47→17:01)
[2019-08-10] MEDS: PANTOPRAZOLE 40 MG (PROTONIX) TAB PO SCH (06:47)
[2019-08-10] MEDS: TRIM/SULFAMETH 160/800 (SEPTRA DS) TAB PO SCH ×2 (06:49→17:01)
--- NOTE | 2019-08-10 07:12 | NUR ---
bedside report given to JATINDER KERR
[2019-08-10] MEDS: POLYETHYLENE GLYCOL 17 GM (MIRALAX) PACK PO SCH ×2 (08:34→20:32)
--- NOTE | 2019-08-10 08:44 | Cardiology Progress Note ---
Subjective Date Seen by Provider: Aug 10, 2019 Time Seen by Provider: 08:15 Subjective/Events-last exam Patient is sitting up in bed, complaining of some back pain this morning, denies any chest pain or dyspnea. Review of Systems General: No Chills, No Night Sweats, No Fatigue, No Malaise, No Appetite, No Other HEENT: No Head Aches, No Visual Changes, No Eye Pain, No Ear Pain, No Dysphasia, No Sinus Congestion, No Post Nasal Drip, No Sore Throat, No Other Pulmonary: No Dyspnea, No Cough, No Pleuritic Chest Pain, No Other Cardiovascular: No: Chest Pain, Palpitations, Orthopnea, Paroxysmal Noc. Dyspnea, Edema, Lt Headedness, Other Objective-Cardiology Exam Last Set of Vital Signs Vital Signs 08/10/19 08/10/19 05:20 08:10 Temp 36.0 Pulse 67 Resp 18 B/P (MAP) 101/60 (74) Pulse Ox 94 O2 Delivery Room Air Capillary Refill : Less Than 3 Seconds I&O Intake and Output 08/10/19 00:00 Intake Total 1300 ml Output Total 650 ml Balance 650 ml Intake Oral 1300 ml Output Urine Total 650 ml General: Alert, Oriented X3 HEENT: Atraumatic, EOMI Neck: Supple, No JVD, No Thyromegaly Lungs: Clear to Auscultation, Normal Air Movement Heart: Regular Rate, No Murmurs Abdomen: Normal Bowel Sounds, Soft, No Tenderness, No Hepatosplenomegaly, No Masses Extremities: No Tenderness/Swelling Skin: No Rashes, No Breakdown, No Significant Lesion Neuro: Normal Speech, Normal Tone, Sensation Intact Psych/Mental Status: Mental Status NL Results Lab Laboratory Tests 08/10/19 05:09 A/P-Cardiology Admission Diagnosis Spinal Stenosis Chest pain CAD HTN Assessment/Plan Spinal stenosis, slipped disc, status post L2-3 laminectomy done on July 20, 2019, back pain continues to improve. Chest pain, chronic stable angina, no further episodes of chest pain reported. Continue to monitor Coronary artery disease, history of CABG, multiple intervention the past, recent cardiac catheterization with drug-eluting stent deployment to the vein graft to the diagonal artery, had a patent GRACE to LAD with patent stent beyond the anast omosis in the LAD, small vessel disease otherwise done by Dr. Perez in [facility], currently back on Plavix. Continue to monitor Hypertension, continues to be hypotensive. Continue on losartan and coreg with parameters. Sinus bradycardia. Secondary to medication, continue to monitor heart rate Hyperlipidemia, maintained on statin Generalized weakness, lower and upper extremity weakness, cervical spinal stenosis with slipped disc, s/p L 2-[address] Bhatt earlier this mo rning. Dementia Patient was seen and evaluated with Jill, examination performed, management plan was discussed, agree with the current scribed note, I made few changes to the note using Italic font Patient denied any chest pain today. Has been doing well, borderline hypotensive but tolerating medication well. Continue on current medication continue to monitor, monitor blood pressure Clinical Quality Measures DVT/VTE Risk/Contraindication: Risk Factor Score Per Nursin RFS Level Per Nursing on Admit: 4+=Very High Supervisory-Addendum Brief Supervisory Addendum Participated in pt care: history, MDM, physical Personally performed: exam, history, MDM Care discussed with: JILL BRICE Aug 10, 2019 08:44 CHRISTIANO DAVIS MD Aug 10, 2019 17:54
--- NOTE | 2019-08-10 09:14 | PM&R Progress Note ---
Subjective HPI/CC On Admission Date Seen by Provider: Aug 10, 2019 Time Seen by Provider: 08:30 CC: Cervical spine injury non-traumatic HPI: This is a 78yoWM who presented to the Hospital with significant compromise in function, was found to have significant cervical spine stenosis causing generalized weakness globally, that was complicated with delirium post- operatively in addition to a UTI diagnosis. Pt previously doctored with Dr. Tyler Danielson and did not see a regular collection manager although he has had Bypass surgery and has known CAD. Pt was doing well but had a lengthy acute care course and is in need of significant rehabilitation, prior to returning home. He seems to be very depressed, very tearful when I meet him and reports that he is about to turn 79 next month. I have tried to reassure him and I have put in a behavioral health consult in for him because of obvious tearfulness and overwhelmed feeling and loss of independence that he will need to be aggressively treated for in order to return home safely. Previously he used a walker for the past 6 months prior to admission, had lumbar spine surgery then was discharged home and home PT Collette Ramos evaluated the Pt to have such severe weakness that he was total care so he was sent to the ER for workup and from there thing progressed into cervical spine MRI showing severe stenosis and Dr. Bhatt performed surgery with good results but was so severe it was a dural tear during the surgery and he has become quite debilitated. He is urinating well, hasn't had a BM in several days so will need to work on that when he is admitted into the inpatient rehab unit. Overall he will be aggressively treated in order to re-gain his independence in order to return home. Subjective/Events-last exam Pt doing pretty well today. Placed on empiric antibiotics of Bactrim twice daily and will await urine culture and will consult urology Back incision no significant change Labs appear to be stable Incontinence continues of both bowel and bladder Having a little constipation so will start meds for that Check meds and labs Reviewed therapy notes Conferred with senior sourcing manager of Systems General: Fatigue Neurological: Weakness, Numbness, Incoordination Objective Exam Vital Signs Vital Signs Date Time Temp Pulse Resp B/P (MAP) Pulse Ox O2 Delivery O2 Flow Rate FiO2 08/10/19 05:20 36.0 67 18 101/60 (74) 94 Room Air Capillary Refill : Less Than 3 Seconds General Appearance: No Apparent Distress, WD/WN, Chronically ill HEENT: PERRL/EOMI, Normal ENT Inspection, Pharynx Normal, Moist Mucous Membranes Neck: Full Range of Motion, Normal Inspection, Non Tender, Supple Respiratory: Chest Non Tender, Lungs Clear, Normal Breath Sounds, No Accessory Muscle Use, No Respiratory Distress Cardiovascular: Regular Rate, Rhythm, No Gallop, No Murmur Gastrointestinal: Normal Bowel Sounds, No Organomegaly, No Pulsatile Mass, Non Tender, Soft Back: Normal Inspection, No CVA Tenderness, Decreased Range of Motion Extremity: Normal Capillary Refill, Normal Inspection, Normal Range of Motion, Non Tender, No Calf Tenderness, No Pedal Edema Neurologic/Psychiatric: Alert, Oriented x3, Normal Mood/Affect, strand forming machine operator II-XII Norm as Tested, Motor Weakness Skin: Normal Color, Warm/Dry Lymphatic: No Adenopathy Results/Procedures Lab Laboratory Tests 08/10/19 05:09 Patient resulted labs reviewed. FIM Transfers Therapy Code Descriptions/Definitions Functional [place] Measure: 0=Not Assessed/NA 4=Minimal Assistance 1=Total Assistance 5=Supervision or Setup 2=Maximal Assistance 6=Modified [place] 3=Moderate Assistance 7=Complete IndependenceSCALE: Activities may be completed with or without assistive devices. 7-Tynptzited-pxzdbqm completes the activity by him/herself with no assistance from a helper. 5-Set-up or Clean-up Assistance-helper sets up or cleans up; patient completes activity. [place] assists only prior to or following the activity. 4-Supervision or Touching Assistance-helper provides verbal cues and/or t ouching/steadying and/or contact guard assistance as patient completes activity. Assistance may be provided throughout the activity or intermittently. 3-Partial/Moderate Assistance-helper does LESS THAN HALF the effort. [place] lifts, holds or supports trunk or limbs, but provides less than half the effort. 2-Substantial/Maximal Assistance-helper does MORE THAN HALF the effort. [place] lifts or holds trunk or limbs and provides more than half the effort. 9-Rmrxibptj-xgmjln does ALL the effort. Patient does none of the effort to complete the activity. Or, the assistance of 2 or more helpers is required for the patient to complete the activity. If activity was not attempted, code reason: 7-Patient Refused. 9-Not Applicable-not attempted and the patient did not perform the activity before the current illness, exacerbation or injury. 10-Not Attempted due to Environmental Limitations-(lack of equipment, weather restraints, etc.). 88-Not Attempted due to Medical Conditions or Safety Concerns. Transfers (B, C, W/C) (FIM): 3 Roll Left to Right (QC): 3 Sit to Lying (QC): 4 Sit to Stand (QC): 2 Chair/Ena-dn-Xuzbq Xfer(QC): 3 Bed to/from Chair: 4 Car Transfer (QC): 1 Gait Training Does the Patient Walk?: No and Walking Goal NOT indicated Gait (FIM): 5 Walk 10 feet (QC): 5 Walk 50 ft with 2 Turns(QC): 5 Walk 150 ft (QC): 5 Walking 10ft/uneven surface-QC: 88 Gait Persons Needed: 1 Gait Assistive Device: FWW Wheelchair Training Does the Pt Use a Wheelchair?: Yes Wheelchair (FIM): 1 Wheelchair Distance: 4=882-69 ft Distance: 100' Wheel 50 ft with 2 turns (QC): 4 Wheel 150 ft (QC): 4 Type of Wheelchair: Manual ADL-Treatment Eating (QC): 4 (Pt opened sugar packets and poured sugar onto lid of his oatmeal. OT had to tell pt that he put the sugar on the lid, pt replied "I'm sorry". Pt was then able to remove lid of oatmeal and pour the sugar from the lid to the bowl. Pt was able to bring food from the bowl to his mouth without spilling any.) Groomin (Pt brushed hair at bed level, he was able to gather hair brush from side table and complete task without assistance.) Oral Hygiene (QC): 5 Bathing Location: L Arm, R Arm, Chest, Abdomen, Perineal Area Shower/Bathe Self (QC): 3 Upper Body Dressing (QC): 5 Lower Body Dressing (QC): 2 On/Off Footwear (QC): 2 (OT educated pt on using sock aid to don socks. OT assisted pt with doffing socks, & demo'd use of sock aid. Pt able to don sock on left foot using sock aid, required assistance with right foot secondary to dressing on heel of foot) Toileting Hygiene (QC): 5 (Pt used urinal at bed level to void. Pt was able to obtain urinal from edge of bed and place onto bedside table once he had voided. OT assisted pt with emptying contents of urinal.) Toilet Transfer (QC): 1 (Pt able to perform SB transfer from EOB to drop arm commode with assist for hand placement and assist scooting across SB. Pt required x2 assist for squat pivot transfer from commode to recliner.) Assessment/Plan Assessment and Plan Assess & Plan/Chief Complaint Assessment: Spinal cord trauma from severe stenosis Debility CAD Delirium now improved s/p UTI completed treatment but now symptoms again and confirmed another UTI so place on Bactrim empirically awaiting UCx Constipation now resolved 07/28/19 HTN HLP Cognitive deficit SLUMS Depression w/tearfulness Bladder incontinence Bowel incontinence Plan: Monitor bowel and bladder incontinence IRF protocol Increase strength with IRF protocols BM regimen to hold due to loose stools Started antidepressant Monitor BP s/p DC steroids Patient appears to be in need of nursing facility skilled care at discharge Dr Arana consultation (1) Spinal cord injury (2) Generalized Weakness (3) Cervical spinal stenosis Status: Acute (4) Neuroforaminal stenosis of spine Status: Acute (5) Essential (primary) hypertension Status: Chronic (6) Lumbar spinal stenosis Status: Acute (7) Slipped intervertebral disc Status: Acute (8) Delirium Status: Acute (9) Incidental durotomy Status: Acute (10) CAD (coronary artery disease) Status: Chronic YANETH REEDER DO Aug 10, 2019 09:14
--- NOTE | 2019-08-10 10:34 | Speech Therapy Daily Note ---
Speech Daily Progress Note Subjective Date Seen by Provider: Aug 10, 2019 Time Seen by Provider: 00:30 Patient was resting in his bed when I entered his room. He states he is very tired and having pain. Objective Patient completed a series of "what's wrong in this picture?" safety awareness pictures at 85% with 15% verbal and/or visual cues. Assessment Assessment Current Status: Good Progress Treatment Plan Continue Plan of Care Speech Short Term Goals Short Term Goals Short Term Goals 1) Patient will complete memory tasks related to his daily needs at 90% or greater, independently. 2) Patient will complete problem solving tasks related to his daily needs at 90% or greater, independently. 3) Patient will complete safety awareness tasks related to his daily needs at 90% or greater, independently. Speech Mowing Machine Operator Goals Fdc Goals Patient will improve cognitive-communication necessary for safety and daily living tasks with minimal assist. Speech-Plan Patient/Family Goals Patient/Family Goals: Patient plans on moving in with his geronimo upon discharge. Treatment Plan Speech Therapy Treatment Plan: Continue Plan of Care Patient is progressing with cognitive goals. Treatment Duration: Aug 12, 2019 Frequency: 5 times per week Estimated Hrs Per Day: .5 hour per day Rehab Potential: Fair Barriers to Learning: Patient's cognitive deficits, however these appear to be improving. He does experience a lot of pain. Pt/Family Agrees to Plan: Yes Safety Risks/Education Teaching Recipient: Patient Teaching Methods: Demonstration, Discussion Response to Teaching: Verbalize Understanding, Return Demonstration Education Topics Provided: Continued safety within his room. Time Speech Therapy Time In: 09:15 Speech Therapy Time Out: 09:45 Total Billed Time: 30 Billed Treatment Time [address] Aug 10, 2019 10:34
[2019-08-10] MEDS: CLOPIDOGREL 75 MG (PLAVIX) TABLET PO SCH (10:50)
[2019-08-10] MEDS: LORATADINE (CLARITIN) 10 MG TAB PO SCH (10:51)
[2019-08-10] MEDS: CARVEDILOL 3.125 MG (COREG) TABLET PO SCH ×2 (10:51→20:34)
[2019-08-10] MEDS: LOSARTAN 25 MG (COZAAR) TAB PO SCH (10:51)
[2019-08-10] MEDS: TOLTERODINE LA 4 MG (DETROL) CAP PO SCH ×2 (10:52→20:33)
[2019-08-10] MEDS: DULoxetine 30 MG (CYMBALTA) CAP PO SCH (10:52)
[2019-08-10] MEDS: ASPIRIN E.C. 81 MG (ECOTRIN) TAB PO SCH (10:52)
[2019-08-10] MEDS: DOCUSATE CALCIUM 240 MG (SURFAK) CAP PO SCH ×2 (10:52→20:33)
[2019-08-10] MEDS: SENNA W/DOCUSATE (SENOKOT S) TABLET PO SCH ×2 (10:53→20:34)
[2019-08-10] MEDS: HYDROcodone/APAP 5 MG/325 MG (LORTAB) TAB PO PRN ×2 (10:53→16:58)
--- NOTE | 2019-08-10 11:09 | Physical Therapy Daily Note ---
PT Daily Note-Current Subjective Pt in bed asleep pre-tx. Pt reports pain is the same as yesterday (04/04). Pt agrees to PT at this time. Appearance Pt in W/C post-tx with RN in room. Pt reports no increased pain after tx. Pt with nurse call light, room phone, and tray table in reach. Mental Status Patient Orientation: Person, Place, Situation Transfers SCALE: Activities may be completed with or without assistive devices. 0-Lnqfqtxaoz-quuwtek completes the activity by him/herself with no assistance from a helper. 5-Set-up or Clean-up Assistance-helper sets up or cleans up; patient completes activity. [place] assists only prior to or following the activity. 4-Supervision or Touching Assistance-helper provides verbal cues and/or touching/steadying and/or contact guard assistance as patient completes activity. Assistance may be provided throughout the activity or intermittently. 3-Partial/Moderate Assistance-helper does LESS THAN HALF the effort. [place] lifts, holds or supports trunk or limbs, but provides less than half the effort. 2-Substantial/Maximal Assistance-helper does MORE THAN HALF the effort. [place] lifts or holds trunk or limbs and provides more than half the effort. 8-Nunwyszni-iynfax does ALL the effort. Patient does none of the effort to comp lete the activity. Or, the assistance of 2 or more helpers is required for the patient to complete the activity. If activity was not attempted, code reason: 7-Patient Refused. 9-Not Applicable-not attempted and the patient did not perform the activity before the current illness, exacerbation or injury. 10-Not Attempted due to Environmental Limitations-(lack of equipment, weather restraints, etc.). 88-Not Attempted due to Medical Conditions or Safety Concerns. Sit to Stand (QC): 3 Chair/Ylp-xl-Hxitp Xfer(QC): 3 (Stand pivot modAx2 W/C to nustep) Pt Min A for slide board transfer from bed to W/C with slight increased difficulty from yesterday. Weight Bearing Right Lower Extremity: Right Weight Bearing/Tolerated Left Lower Extremity: Left Weight Bearing/Tolerated Gait Training Gait: 2 Distance: 3ft Gait Persons Needed: 1 (with chair follow) Gait Assistive Device: Parallel Bars Wheelchair Training Does the Pt Use a Wheelchair?: Yes Distance: 75'x2 Wheel 50 ft with 2 turns (QC): 4 (SBA) Type of Wheelchair: Manual Exercises Seated Therapy Exercises: Ankle pumps, Sit to stand (x4 to pt augustin. ), Hip flexion Seated Reps: 20 NuStep Minutes: 15 NuStep Workload: 3 Treatments seated LE ex, functional stands, functional transfers, W/C training Assessment Current Status: Good Progress Pt augustin increased stand time today to 55sec. Pt augustin steps today taking short choppy steps requiring therapist knee block on stance leg and VC for weight shifting. PT Short Term Goals Short Term Goals Time Frame: Aug 02, 2019 Wheelchair Distance: 100' PT Group Home Goals Group Home Goals PT Group Home Goals Time Frame: Aug 16, 2019 Sit to Lying (QC): 3 (Olu) Lying-Sitting on Side/Bed(QC): 3 (Kofi) Sit to Stand (QC): 1 Roll Left to Right (QC): 3 (Olu) Chair/Biq-xp-[place]us Xfer(QC): 3 (Olu) Car Transfer (QC): 1 Walk 10 feet (QC): 88 Walk 10ft-Uneven Surface(QC): 88 Walk 50ft with 2 Turns (QC): 88 Walk 150 ft (QC): 88 Wheel 50 feet with 2 turns (QC: 5 1 Step (curb) (QC): 88 4 Steps (QC): 88 12 Steps (QC): 88 Picking up an Object (QC): 88 PT Plan Problem List Problem List: Activity Tolerance, Functional Strength, Safety, Balance, Gait, Transfer, Bed Mobility, ROM Treatment/Plan Treatment Plan: Continue Plan of Care Treatment Plan: Bed Mobility, Concurrent Therapy, Education, Functional Activity Jesus Alberto, Functional Strength, Group Therapy, Gait, Safety, Therapeutic Exercise, Transfers Treatment Duration: Aug 16, 2019 Frequency: At least 5 of 7 days/Wk (IRF) Estimated Hrs Per Day: 1.5 hours per day Patient and/or Family Agrees t: Yes Safety Risks/Education Patient Education: Gait Training, Transfer Techniques, Correct Positioning, W/C Management Teaching Recipient: Patient Teaching Methods: Demonstration, Discussion Response to Teaching: Verbalize Understanding, Reinforcement Needed Time/GCodes Time In: 1000 Time Out: 1100 Total Billed Treatment Time: 60 Total Billed Treatment 1 visit. 15' WCH 35' FA 10' EX ALANA CISNEROS PT Aug 10, 2019 11:09
[2019-08-10] MEDS: BACITRACIN OINTMENT 28 GM TUBE TOP SCH ×2 (12:56→20:52)
[2019-08-10] MEDS: BISACODYL 10 MG SUPP (DULCOLAX) PR SCH ×2 (12:57→20:32)
--- NOTE | 2019-08-10 13:07 | Occupational Ther Daily Note ---
OT Current Status-Daily Note Subjective Pt. reports pain in back and in hips. Does not report pain level. Pt. has already had pain medication. Nursing is notified and wraps a warm blanket around pt. while up in wheelchair. Appearance Pt. up in wheelchair after finishing PT session this date. Agrees to work with OT. Mental Status/Objective Patient Orientation: Person ADL-Treatment Therapy Code Descriptions/Definitions Functional [place] Measure: 0=Not Assessed/NA 4=Minimal Assistance 1=Total Assistance 5=Supervision or Setup 2=Maximal Assistance 6=Modified [place] 3=Moderate Assistance 7=Complete IndependenceSCALE: Activities may be completed with or without assistive devices. 7-Oskpgffrzq-vzbociu completes the activity by him/herself with no assistance from a helper. 5-Set-up or Clean-up Assistance-helper sets up or cleans up; patient completes activity. [place] assists only prior to or following the activity. 4-Supervision or Touching Assistance-helper provides verbal cues and/or touching/steadying and/or contact guard assistance as patient completes activity. Assistance may be provided throughout the activity or intermittently. 3-Partial/Moderate Assistance-helper does LESS THAN HALF the effort. [place] lifts, holds or supports trunk or limbs, but provides less than half the effort. 2-Substantial/Maximal Assistance-helper does MORE THAN HALF the effort. [place] lifts or holds trunk or limbs and provides more than half the effort. 3-Psbrhmqei-qmawlm does ALL the effort. Patient does none of the effort to complete the activity. Or, the assistance of 2 or more helpers is required for the patient to complete the activity. If activity was not attempted, code reason: 7-Patient Refused. 9-Not Applicable-not attempted and the patient did not perform the activity before the current illness, exacerbation or injury. 10-Not Attempted due to Environmental Limitations-(lack of equipment, weather restraints, etc.). 88-Not Attempted due to Medical Conditions or Safety Concerns. Oral Hygiene (QC): 5 (Set up at sink level seated in wheelchair.) Shower/Bathe Self (QC): 4 (Pt. requires cues to sequence steps. Min assist to adequately was rear janna area while seated.) Upper Body Dressing (QC): 5 Lower Body Dressing (QC): 1 (Max assist overall with LE dressing. Pt. requires cues and max assist to use AE to don brief and pants seated. Max x 2 to to pull pants in stance. Dependent with socks. ) Pt. agrees to shower. Requires max assist to slide into shower bench using sl re board. Pt. states that PT "wore me out." Pt. requires multiple rest breaks during shower. Does not remember using AE to attempt to dress. Pt. encouraged and educated on use of AE. Stood with max assist in shower while another person assisted with pulling pants up. Used slide board to transfer back to wheelchair. Pt. taken to therapy gym. Attempted arm bike x 4 minutes. Pt. reports that this makes him uncomfortable. Attempted to do gentle UE stretch exercises with pt., but pt. states that this causes back pain. Pt. self propelled to room. Transferred back to bed with min assist using slide board and with increased time. Mod assist sit-supine. All needs are met. Education OT Patient Education: Correct positioning, Exercise program, Modified ADL techniques, Progress toward Goal/Update tx plan, Purpose of tx/functional activities, Reviewed precautions, Rehab process, Transfer techniques, Use of adapted equipment Teaching Recipient: Patient Teaching Methods: Demonstration, Discussion Response to Teaching: Verbalize Understanding, Return Demonstration OT Short Term Goals Short Term Goals Lower Body Dressing(FIM): 3 Toilet/Commode Transfer(FIM): 3 Additional Short Term Goals: 1-Demonstrate ADL Tasks, 2-Verbalize Understanding, 3-ImproveStrength/Jesus Alberto 1=Demonstrate adherence to instructed precautions during ADL tasks. 2=Patient will verbalize/demonstrate understanding of assistive devices/modifications for ADL. 3=Patient will improve strength/tolerance for activity to enable patient to perform ADL's. OT Ornamental Iron Worker Apprentice Goals Senior Care Goals Eating (QC): 6 Oral Hygiene (QC): 6 Shower/Bathe Self (QC): 6 Upper Body Dressing (QC): 6 Lower Body Dressing (QC): 5 On/Off Footwear (QC): 6 Toileting Hygiene (QC): 5 Toilet/Commode Transfer (QC): 5 Additional Goals: 1-Demonstrate ADL Tasks, 2-Verbalize Understanding, 3- ImproveStrength/Jesus Alberto 1=Demonstrate adherence to instructed precautions during ADL tasks. 2=Patient will verbalize/demonstrate understanding of assistive devices/modifications for ADL. 3=Patient will improve strength/tolerance for activity to enable patient to perform ADL's. OT Education/Plan Problem List/Assessment Assessment: Decreased Activ Tolerance, Decreased UE Strength, Dependent Transfers, Impaired Bed Mobility, Impaired I ADL's, Impaired Self-Care Skills Discharge Recommendations Plan/Recommendations: Continue POC Equpiment Recommendations-D/C: Hip Kit Treatment Plan/Plan of Care Treatment,Training & Education: Yes Patient would benefit from OT for education, treatment and training to promote independence in ADL's, mobility, safety and/or upper extremity function for ADL's. Plan of Care: ADL Retraining, Caregiver Training, Concurrent Therapy, Functional Mobility, Group Exercise/Act as Ind, UE Funct Exercise/Act Treatment Duration: Jul 27, 2019 Frequency: At least 5 of 7 days/Wk (IRF) Estimated Hrs Per Day: 1.5 hours per day Agreement: Yes Rehab Potential: Fair Time/GCodes Start Time: 11:00 Stop Time: 12:15 Total Time Billed (hr/min): 75 Billed Treatment Time 1, ADL x 60minutes, Ex x 15minutes SADIE SAUL OT Aug 10, 2019 13:07
--- NOTE | 2019-08-10 13:22 | CONSULTATION REPORT ---
DATE OF SERVICE: 08/10/2019 ATTENDING PHYSICIAN: Dr. Justice. SUMMARY: A 78-year-old white man recovering from spinal stenosis, known to have voiding issues, is seeing Dr. Robles in [place], who has him on terazosin 5 mg at bedtime and Detrol-LA 4 mg daily. The patient apparently has been having some UTIs. He is actually now on Bactrim DS b.i.d. He does mention voiding symptoms, both of the irritative and the obstructive type. He tolerates the above medicine well. He is ALLERGIC TO CODEINE. I reviewed his H and P. He is also on Plavix. IMPRESSION: 1. BPH and overactive bladder. 2. History of UTIs with present UTI. PLAN: We will check a bladder scan postvoid residual and manage accordingly. We will continue the Bactrim DS for now. Job ID: [id number] DocumentID: [id number] Dictated Date: 08/10/2019 10:33:33 Distiller Date: 08/10/2019 13:20:43 Dictated By: MU LOCKETT MD
--- NOTE | 2019-08-10 14:12 | Physical Therapy Daily Note ---
PT Daily Note-Current Subjective Pt. c/o pain and requests meds. This was forwarded to nursing. Pt. rates pain in LEs at 5/10 Pain Numeric Pain Scale: 5-Moderate Pain Location: Right Location Body Site: Hip Pain Description: Ache Mental Status Patient Orientation: Normal For Age Transfers SCALE: Activities may be completed with or without assistive devices. 4-Gmajtlxhof-gqvgyji completes the activity by him/herself with no assistance from a helper. 5-Set-up or Clean-up Assistance-helper sets up or cleans up; patient completes activity. [place] assists only prior to or following the activity. 4-Supervision or Touching Assistance-helper provides verbal cues and/or touching/steadying and/or contact guard assistance as patient completes activity. Assistance may be provided throughout the activity or intermittently. 3-Partial/Moderate Assistance-helper does LESS THAN HALF the effort. [place] lifts, holds or supports trunk or limbs, but provides less than half the effort. 2-Substantial/Maximal Assistance-helper does MORE THAN HALF the effort. [place] lifts or holds trunk or limbs and provides more than half the effort. 2-Alsissppm-mltuyx does ALL the effort. Patient does none of the effort to complete the activity. Or, the assistance of 2 or more helpers is required for the patient to complete the activity. If activity was not attempted, code reason: 7-Patient Refused. 9-Not Applicable-not attempted and the patient did not perform the activity before the current illness, exacerbation or injury. 10-Not Attempted due to Environmental Limitations-(lack of equipment, weather restraints, etc.). 88-Not Attempted due to Medical Conditions or Safety Concerns. Weight Bearing Right Lower Extremity: Right Weight Bearing/Tolerated Left Lower Extremity: Left Weight Bearing/Tolerated Exercises Supine Ex: Ankle pumps, Quad Set, Rolling, Glut sets, Heel Slides, Short Arc Quads, Scooting, Straight leg raise, Hip abd/add Supine Reps: 10 (x2) PAAROM exercise LEs Assessment Current Status: Fair Progress PT Short Term Goals Short Term Goals Time Frame: Aug 02, 2019 Wheelchair Distance: 75'x2 PT Home Companion Goals [place] Goals PT Home Companion Goals Time Frame: Aug 16, 2019 Sit to Lying (QC): 3 (Olu) Lying-Sitting on Side/Bed(QC): 3 (Kofi) Sit to Stand (QC): 1 Roll Left to Right (QC): 3 (Olu) Chair/Aju-tk-Cvpvk Xfer(QC): 3 (Olu) Car Transfer (QC): 1 Walk 10 feet (QC): 88 Walk 10ft-Uneven Surface(QC): 88 Walk 50ft with 2 Turns (QC): 88 Walk 150 ft (QC): 88 Wheel 50 feet with 2 turns (QC: 5 1 Step (curb) (QC): 88 4 Steps (QC): 88 12 Steps (QC): 88 Picking up an Object (QC): 88 PT Plan Treatment/Plan Treatment Plan: Continue Plan of Care Treatment Plan: Bed Mobility, Concurrent Therapy, Education, Functional Activity Jesus Alberto, Functional Strength, Group Therapy, Gait, Safety, Therapeutic Exercise, Transfers Treatment Duration: Aug 16, 2019 Frequency: At least 5 of 7 days/Wk (IRF) Estimated Hrs Per Day: 1.5 hours per day Patient and/or Family Agrees t: Yes Time/GCodes Time In: 1355 Time Out: 1410 Total Billed Treatment Time: 15 Total Billed Treatment 1,EX15m DEA PEÑALOZA CONNECTION WORKER Aug 10, 2019 14:12
--- NOTE | 2019-08-10 14:37 | Progress Note ---
NIDIA NGUYEN [facility] 08/10/19 1437: Progress Note CC: Post lumbar laminectomy, UTI * He came in after having surgery to repair a chronic lumbar stenosis that had previously made him wheelchair bound due to weakness in his legs predominately his right leg * In the first day in rehab he made good progress with his strength in his right leg * He subsequently began to lose some of the prior progress that was made and had become tearful due to pain associated with the surgery and his debility * He complains of back pain that has caused a decrease in ability to participate in therapy * He plateaued in his progress for several days returning to full assist for all activities * He developed a UTI that may have exacerbated his back pain as well * He has begun to make a little more progress and is a moderate assist using the transfer board to get from the bed to chair and chair to bed * He has fatigue in his arms and overall especially in the afternoon after his therapy * He possibly will require a power wheel chair at discharge * He is currently likely to be discharged to a custodial home and is in agreement with this plan stating he was living with his granddaughter who is having her own medical concerns currently thus being unable to care for the patient as much as needed * Physical therapy would like to continue to see him * We will recheck his progress next Thursday and decide on discharge at that time ADENIKE REEDER DO 08/11/19 0900: Supervisory-Addendum Brief Verification & Attestation Participated in pt care: history, MDM, physical Personally performed: exam, history, MDM, supervision of care Care discussed with: Medical Student Procedures: n/a Results interpretation: Verified all documentation Verification and Attestation of Medical Student E/M Service A medical student performed and documented this service in my presence. I reviewed and verified all information documented by the medical student and made modifications to such information, when appropriate. I personally performed the physical exam and medical decision making. Adenike Reeder, Aug 11, 2019,09:00 PATRICKANA LAURA SANCHEZER [facility] Aug 10, 2019 14:37 ADENIKE REEDER DO Aug 11, 2019 09:00
[2019-08-10 18:00] VITALS: BP 102/69
--- NOTE | 2019-08-10 19:05 | NUR ---
bedside report received from JATINDER KERR, assume care of pt
[2019-08-10 20:30] VITALS: BP_SYST 104; BP_SYST 120; BP_DIAS 65; BP_DIAS 75
--- NOTE | 2019-08-10 20:32 | NUR ---
pt took Surfak & Senokot 1 tab, refused miralax & Dulcolax suppository, bacitracin to back incision
[2019-08-10] MEDS: CYCLOBENZAPRINE 10 MG (FLEXERIL) TAB PO PRN (20:34)
[2019-08-10] MEDS: TERAZOSIN 5 MG (HYTRIN) CAPSULE PO SCH (20:34)
[2019-08-10] MEDS: risperiDONE 0.25 MG (RisperDAL) TAB PO SCH (20:34)
[2019-08-10] MEDS: DONEPEZIL 10 MG (ARICEPT) TAB PO SCH (20:34)
[2019-08-11 05:03] VITALS: BP 115/73
[2019-08-11] MEDS: LACTOBACILLUS ACIDOPHILUS (PROBIOTIC) CAPSULE PO SCH ×3 (06:49→18:09)
[2019-08-11] MEDS: TRIM/SULFAMETH 160/800 (SEPTRA DS) TAB PO SCH ×2 (06:49→18:09)
[2019-08-11] MEDS: PANTOPRAZOLE 40 MG (PROTONIX) TAB PO SCH (06:49)
--- NOTE | 2019-08-11 07:06 | NUR ---
bedside report given to JATINDER KERR
--- NOTE | 2019-08-11 08:05 | Progress Note - Urology ---
Progress Note-Urology Progress Notes/Assess & Plan Progress/Assessment & Plan EMPTIES WELL. COMPLAINS OF FREQUENCY AND URGENCY. WE INCREASED DETROL LA 4MG TO BID Final Diagnosis BPH AND OAB MU LOCKETT MD Aug 11, 2019 08:05
--- NOTE | 2019-08-11 08:14 | PM&R Progress Note ---
Subjective HPI/CC On Admission Date Seen by Provider: Aug 11, 2019 Time Seen by Provider: 08:30 CC: Cervical spine injury non-traumatic HPI: This is a 78yoWM who presented to the Hospital with significant compromise in function, was found to have significant cervical spine stenosis causing generalized weakness globally, that was complicated with delirium post- operatively in addition to a UTI diagnosis. Pt previously doctored with Dr. Tyler Danielson and did not see a regular railroad wheels and axle inspector although he has had Bypass surgery and has known CAD. Pt was doing well but had a lengthy acute care course and is in need of significant rehabilitation, prior to returning home. He seems to be very depressed, very tearful when I meet him and reports that he is about to turn 79 next month. I have tried to reassure him and I have put in a behavioral health consult in for him because of obvious tearfulness and overwhelmed feeling and loss of independence that he will need to be aggressively treated for in order to return home safely. Previously he used a walker for the past 6 months prior to admission, had lumbar spine surgery then was discharged home and home PT Collette Ramos evaluated the Pt to have such se higinio weakness that he was total care so he was sent to the ER for workup and from there thing progressed into cervical spine MRI showing severe stenosis and Dr. Bhatt performed surgery with good results but was so severe it was a dural tear during the surgery and he has become quite debilitated. He is urinating well, hasn't had a BM in several days so will need to work on that when he is admitted into the inpatient rehab unit. Overall he will be aggressively treated in order to re-gain his independence in order to return home. Subjective/Events-last exam Pt having a very good day today. Flexeril given at night really helped his sleep. Dr. Arana did see him in consultation and will manage accordingly. Bactrim maintained, urine culture still pending for ID insensitivity but its a gram negative katya. Bowels not moving since he was a little nauseated yesterday so will start that regimen today. Incision on the back appears to be much improved. Check meds and labs Reviewed therapy notes Conferred with gripper machine operator of Systems General: Fatigue Musculoskeletal: back pain Objective Exam Vital Signs Vital Signs Date Time Temp Pulse Resp B/P (MAP) Pulse Ox O2 Delivery O2 Flow Rate FiO2 10/17/19 19:15 Room Air 08/11/19 18:00 36.7 74 20 105/66 (79) 96 Capillary Refill : Less Than 3 Seconds General Appearance: No Apparent Distress, WD/WN, Chronically ill HEENT: PERRL/EOMI, Normal ENT Inspection, Pharynx Normal, Moist Mucous Membranes Neck: Full Range of Motion, Normal Inspection, Non Tender, Supple Respiratory: Chest Non Tender, Lungs Clear, Normal Breath Sounds, No Accessory Muscle Use, No Respiratory Distress Cardiovascular: Regular Rate, Rhythm, No Gallop, No Murmur Gastrointestinal: Normal Bowel Sounds, No Organomegaly, No Pulsatile Mass, Non Tender, Soft Back: Normal Inspection, No CVA Tenderness, Decreased Range of Motion Extremity: Normal Capillary Refill, Normal Inspection, Normal Range of Motion, Non Tender, No Calf Tenderness, No Pedal Edema Neurologic/Psychiatric: Alert, Oriented x3, Normal Mood/Affect, tank bottom assembler II-XII Norm as Tested, Motor Weakness Skin: Normal Color, Warm/Dry Lymphatic: No Adenopathy Results/Procedures Lab Patient resulted labs reviewed. FIM Transfers Therapy Code Descriptions/Definitions Functional [place] Measure: 0=Not Assessed/NA 4=Minimal Assistance 1=Total Assistance 5=Supervision or Setup 2=Maximal Assistance 6=Modified [place] 3=Moderate Assistance 7=Complete IndependenceSCALE: Activities may be completed with or without assistive devices. 0-Suzwzemgvl-lzxnkfs completes the activity by him/herself with no assistance from a helper. 5-Set-up or Clean-up Assistance-helper sets up or cleans up; patient completes activity. [place] assists only prior to or following the activity. 4-Supervision or Touching Assistance-helper provides verbal cues and/or touching/steadying and/or contact guard assistance as patient completes act ivity. Assistance may be provided throughout the activity or intermittently. 3-Partial/Moderate Assistance-helper does LESS THAN HALF the effort. [place] lifts, holds or supports trunk or limbs, but provides less than half the effort. 2-Substantial/Maximal Assistance-helper does MORE THAN HALF the effort. [place] lifts or holds trunk or limbs and provides more than half the effort. 4-Uffdcrlsw-ktsqvt does ALL the effort. Patient does none of the effort to complete the activity. Or, the assistance of 2 or more helpers is required for the patient to complete the activity. If activity was not attempted, code reason: 7-Patient Refused. 9-Not Applicable-not attempted and the patient did not perform the activity before the current illness, exacerbation or injury. 10-Not Attempted due to Environmental Limitations-(lack of equipment, weather restraints, etc.). 88-Not Attempted due to Medical Conditions or Safety Concerns. Transfers (B, C, W/C) (FIM): 3 Roll Left to Right (QC): 3 Sit to Lying (QC): 4 Sit to Stand (QC): 3 Chair/Rrr-ck-Lsfvd Xfer(QC): 3 (Stand pivot modAx2 W/C to nustep) Bed to/from Chair: 4 Car Transfer (QC): 1 Gait Training Does the Patient Walk?: No and Walking Goal NOT indicated Gait (FIM): 2 Distance: 3ft Walk 10 feet (QC): 5 Walk 50 ft with 2 Turns(QC): 5 Walk 150 ft (QC): 5 Walking 10ft/uneven surface-QC: 88 Gait Persons Needed: 1 (with chair follow) Gait Assistive Device: Parallel Bars Wheelchair Training Does the Pt Use a Wheelchair?: Yes Wheelchair (FIM): 1 Wheelchair Distance: 2=651-14 ft Distance: 75'x2 Wheel 50 ft with 2 turns (QC): 4 (SBA) Wheel 150 ft (QC): 4 Type of Wheelchair: Manual ADL-Treatment Eating (QC): 4 (Pt opened sugar packets and poured sugar onto lid of his oatmeal. OT had to tell pt that he put the sugar on the lid, pt replied "I'm sorry". Pt was then able to remove lid of oatmeal and pour the sugar from the lid to the bowl. Pt was able to bring food from the bowl to his mouth without spilling any.) Groomin (Pt brushed hair at bed level, he was able to gather hair brush from side table and complete task without assistance.) Oral Hygiene (QC): 5 (Set up at sink level seated in wheelchair.) Bathing Location: L Arm, R Arm, Chest, Abdomen, Perineal Area Shower/Bathe Self (QC): 4 (Pt. requires cues to sequence steps. Min assist to adequately was rear janna area while seated.) Upper Body Dressing (QC): 5 Lower Body Dressing (QC): 1 (Max assist overall with LE dressing. Pt. requires cues and max assist to use AE to don brief and pants seated. Max x 2 to to pull pants in stance. Dependent with socks. ) On/Off Footwear (QC): 2 (OT educated pt on using sock aid to don socks. OT assisted pt with doffing socks, & demo'd use of sock aid. Pt able to don sock on left foot using sock aid, required assistance with right foot secondary to dressing on heel of foot) Toileting Hygiene (QC): 5 (Pt used urinal at bed level to void. Pt was able to obtain urinal from edge of bed and place onto bedside table once he had voided. OT assisted pt with emptying contents of urinal.) Toilet Transfer (QC): 1 (Pt able to perform SB transfer from EOB to drop arm commode with assist for hand placement and assist scooting across SB. Pt required x2 assist for squat pivot transfer from commode to recliner.) Assessment/Plan Assessment and Plan Assess & Plan/Chief Complaint Assessment: Spinal cord trauma from severe stenosis Debility CAD Delirium now improved s/p UTI completed treatment but now symptoms again and confirmed another UTI so place on Bactrim empirically awaiting UCx Constipation now resolved 07/28/19 HTN HLP Cognitive deficit SLUMS Depression w/tearfulness Bladder incontinence Bowel incontinence Plan: Monitor bowel and bladder incontinence IRF protocol Increase strength with IRF protocols BM regimen to hold due to loose stools Started antidepressant Monitor BP s/p DC steroids Patient appears to be in need of nursing facility skilled care at discharge Dr Arana consultation is appreciated (1) Spinal cord injury (2) Generalized Weakness (3) Cervical spinal stenosis Status: Acute (4) Neuroforaminal stenosis of spine Status: Acute (5) Essential (primary) hypertension Status: Chronic (6) Lumbar spinal stenosis Status: Acute (7) Slipped intervertebral disc Status: Acute (8) Delirium Status: Acute (9) Incidental durotomy Status: Acute (10) CAD (coronary artery disease) Status: Chronic YANETH REEDER DO Aug 11, 2019 08:14
--- NOTE | 2019-08-11 08:17 | Cardiology Progress Note ---
Subjective Date Seen by Provider: Aug 11, 2019 Time Seen by Provider: 08:15 Subjective/Events-last exam Patient with physical therapy. Complaining of back pain. Denies any chest pain, dyspnea. Review of Systems General: No Chills, No Night Sweats, No Fatigue, No Malaise, No Appetite, No Other HEENT: No Head Aches, No Visual Changes, No Eye Pain, No Ear Pain, No Dysphasia, No Sinus Congestion, No Post Nasal Drip, No Sore Throat, No Other Pulmonary: No Dyspnea, No Cough, No Pleuritic Chest Pain, No Other Cardiovascular: No: Chest Pain, Palpitations, Orthopnea, Paroxysmal Noc. Dyspnea, Edema, Lt Headedness, Other Objective-Cardiology Exam Last Set of Vital Signs Vital Signs 08/11/19 08/11/19 08/11/19 05:03 07:36 08:00 Temp 36.2 Pulse 65 Resp 16 B/P (MAP) 115/73 (87) Pulse Ox 96 O2 Delivery Room Air Capillary Refill : Less Than 3 Seconds I&O Intake and Output 08/10/19 23:59 Intake Total 940 ml Output Total 700 ml Balance 240 ml Intake Oral 940 ml Output Urine Total 700 ml # Voids 1 # Urine Diapers 2 General: Alert, Oriented X3 HEENT: Atraumatic, EOMI Neck: Supple, No JVD, No Thyromegaly Lungs: Clear to Auscultation, Normal Air Movement Heart: Regular Rate, No Murmurs Abdomen: Normal Bowel Sounds, Soft, No Tenderness, No Hepatosplenomegaly, No Masses Extremities: No Tenderness/Swelling Skin: No Rashes, No Breakdown, No Significant Lesion Neuro: Normal Speech, Normal Tone, Sensation Intact Psych/Mental Status: Mental Status NL A/P-Cardiology Admission Diagnosis Spinal Stenosis Chest pain CAD HTN Assessment/Plan Spinal stenosis, slipped disc, status post L2-3 laminectomy done on July 20, 2019, back pain continues to improve. Chest pain, chronic stable angina, no further episodes of chest pain reported. Continue to monitor Coronary artery disease, history of CABG, multiple intervention the past, recent cardiac catheterization with drug-eluting stent deployment to the vein graft to the diagonal artery, had a patent GRACE to LAD with patent stent beyond the anastomosis in the LAD, small vessel disease otherwise done by Dr. Perez in [facility], currently back on Plavix. Continue to monitor Hypertension, controlled. Continue on losartan and coreg with parameters. Sinus bradycardia. Secondary to medication, continue to monitor heart rate Hyperlipidemia, maintained on statin Generalized weakness, lower and upper extremity weakness, cervical spinal stenosis with slipped disc, s/p L 2-[address] Bhatt earlier this morning. Dementia Patient was seen and evaluated with Jill, examination performed, management plan was discussed, agree with the current scribed note, I made few changes to the note using Italic font. Patient is sitting in a chair, denied any chest pain Still having mild back pain Continue with physical therapy Continue on current medication monitor blood pressure and heart rate Clinical Quality Measures DVT/VTE Risk/Contraindication: Risk Factor Score Per Nursin RFS Level Per Nursing on Admit: 4+=Very High JILL FULLER Aug 11, 2019 08:17 CHRISTIANO DAVIS MD Aug 11, 2019 13:09
--- NOTE | 2019-08-11 08:33 | Physician Query Clarification ---
PQ-Further Specificity Admission/Discharge Admission Date: Jul 26, 2019 at 11:00 Discharge Date: The medical record reflects the following clinical scenario: History/Risk Factors: lumbar and cervical spinal cord stenosis s/p surgery w/generalized bilateral lower extremity weakness Clinical Findings: motor weakness general all extremities 3/5 Treatment: rehab Question: Can you further specify nontraumatic spinal cord injury and generalized weakness bilateral lower extremity weakness per the clinical indicators above? Please document a response in the Progress Notes or Discharge Summary. 1. Myelopathy (specify if d/t lumbar spinal stenosis, slipped lumbar disc or spondylosis) 2. generalized weakness bilateral lower extremity weakness 3. Other, with explanation of the clinical findings. 4. Clinically undetermined, no explanation for the clinical findings. PHYSICIAN RESPONSE Can you specify per above: 1 Please remember a lack of response to the above will prompt a phone page by CDI/Coding staff. In responding to this query, please exercise your independent professional judgment. The purpose of this communication is to more accurately reflect the complexity of your patients condition. The fact that a question is asked does not imply that any particular answer is desired or expected. Thank you for your timely response to this clarification. Requestors name: Rafy THIS PHYSICIAN QUERY FORM IS A PERMANENT PART OF THE MEDICAL RECORD RAFY MERAZ Aug 11, 2019 08:33 YANETH REEDER DO Aug 11, 2019 08:58
--- NOTE | 2019-08-11 08:56 | Physical Therapy Daily Note ---
PT Daily Note-Current Subjective Pt in bed pre-tx. Pt alert and agrees to PT. Pt reports decreased back pain today to 3/10 and states he slept all night last night. Appearance Pt in W/C at bed side post-tx. Pt had no c/o increased pain with tx today. Has nurse call, phone, tray, all needs met. Mental Status Patient Orientation: Person, Place, Situation Transfers SCALE: Activities may be completed with or without assistive devices. 4-Wfuspmqvky-oldrfao completes the activity by him/herself with no assistance from a helper. 5-Set-up or Clean-up Assistance-helper sets up or cleans up; patient completes activity. [place] assists only prior to or following the activity. 4-Supervision or Touching Assistance-helper provides verbal cues and/or touching/steadying and/or contact guard assistance as patient completes activity. Assistance may be provided throughout the activity or intermittently. 3-Partial/Moderate Assistance-helper does LESS THAN HALF the effort. [place] lifts, holds or supports trunk or limbs, but provides less than half the effort. 2-Substantial/Maximal Assistance-helper does MORE THAN HALF the effort. [place] lifts or holds trunk or limbs and provides more than half the effort. 1-Stzolvrvj-xmibsh does ALL the effort. Patient does none of the effort to complete the activity. Or, the assistance of 2 or more helpers is required for the patient to complete the activity. If activity was not attempted, code reason: 7-Patient Refused. 9-Not Applicable-not attempted and the patient did not perform the activity before the current illness, exacerbation or injury. 10-Not Attempted due to Environmental Limitations-(lack of equipment, weather restraints, etc.). 88-Not Attempted due to Medical Conditions or Safety Concerns. Roll Left to Right (QC): 4 (SBA) Sit to Stand (QC): 2 (modA to max assist) Chair/Ihq-vt-Znapm Xfer(QC): 3 (min assist mostly to hold the board and keep it from sliding) Pt performed 5 slide board transfers with 2 going to a higher surface which pt augustin with less difficulty. Pt continues to improve in ability to removed slide board after transfers. Weight Bearing Right Lower Extremity: Right Weight Bearing/Tolerated Left Lower Extremity: Left Weight Bearing/Tolerated Gait Training Distance: 6 steps x4 in // bars with stance leg blocked Gait Persons Needed: 1 Gait Assistive Device: Parallel Bars with W/C follow. Pt required decreased cuing for weight shifting and taking steps this date. Pt [place] increased steps from last tx. Wheelchair Training Does the Pt Use a Wheelchair?: Yes Distance: 100' Wheel 50 ft with 2 turns (QC): 4 (SBA. continued difficulty navigating some corners and turns) Type of Wheelchair: Manual Exercises Seated Therapy Exercises: Ankle pumps, Hip flexion, Kicking activity (B/L 2x10 kicks), Hip abd/add (Red Tbd for abd. soccer ball for Add) Seated Reps: 20 (2set 10 reps) NuStep Minutes: 7 NuStep Workload: 3 Treatments Pt performed LE ex in sitting. Slide board transfers to from W/C to table, endurance training, W/C handling. Assessment Current Status: Good Progress Pt august[place] increased stepping today. Pt with LE fatigued following tx today. PT Short Term Goals Short Term Goals Time Frame: Aug 02, 2019 Wheelchair Distance: 75'x2 PT Mixing Machine Tender Cork Gasket Goals Chcf Goals PT Chcf Goals Time Frame: Aug 16, 2019 Sit to Lying (QC): 3 (Olu) Lying-Sitting on Side/Bed(QC): 3 (Kofi) Sit to Stand (QC): 1 Roll Left to Right (QC): 3 (Olu) Chair/Uri-bn-Oqulw Xfer(QC): 3 (Olu) Car Transfer (QC): 1 Walk 10 feet (QC): 88 Walk 10ft-Uneven Surface(QC): 88 Walk 50ft with 2 Turns (QC): 88 Walk 150 ft (QC): 88 Wheel 50 feet with 2 turns (QC: 5 1 Step (curb) (QC): 88 4 Steps (QC): 88 12 Steps (QC): 88 Picking up an Object (QC): 88 PT Plan Problem List Problem List: Activity Tolerance, Functional Strength, Safety, Balance, Gait, Transfer, Bed Mobility, ROM Treatment/Plan Treatment Plan: Continue Plan of Care Treatment Plan: Bed Mobility, Education, Functional Activity Jesus Alberto, Functional Strength, Group Therapy, Gait, Safety, Therapeutic Exercise, Transfers Treatment Duration: Aug 16, 2019 Frequency: At least 5 of 7 days/Wk (IRF) Estimated Hrs Per Day: 1.5 hours per day Patient and/or Family Agrees t: Yes Safety Risks/Education Patient Education: Gait Training, Transfer Techniques, Correct Positioning, W/C Management, Safety Issues Teaching Recipient: Patient Teaching Methods: Demonstration, Discussion Response to Teaching: Verbalize Understanding, Return Demonstration, Reinforcement Needed Time/GCodes Time In: 800 Time Out: 900 Total Billed Treatment Time: 60 Total Billed Treatment 1 visit 10' [facility] 35' FA 15' EX ALANA CISNEROS PT Aug 11, 2019 08:56
[2019-08-11] MEDS: TOLTERODINE LA 4 MG (DETROL) CAP PO SCH ×2 (09:18→20:48)
[2019-08-11] MEDS: DOCUSATE CALCIUM 240 MG (SURFAK) CAP PO SCH ×2 (09:18→20:48)
[2019-08-11] MEDS: LOSARTAN 25 MG (COZAAR) TAB PO SCH (09:19)
[2019-08-11] MEDS: SENNA W/DOCUSATE (SENOKOT S) TABLET PO SCH ×2 (09:19→20:48)
[2019-08-11] MEDS: CLOPIDOGREL 75 MG (PLAVIX) TABLET PO SCH (09:19)
[2019-08-11] MEDS: DULoxetine 30 MG (CYMBALTA) CAP PO SCH (09:19)
[2019-08-11] MEDS: LORATADINE (CLARITIN) 10 MG TAB PO SCH (09:19)
[2019-08-11] MEDS: ASPIRIN E.C. 81 MG (ECOTRIN) TAB PO SCH (09:19)
[2019-08-11] MEDS: HYDROcodone/APAP 5 MG/325 MG (LORTAB) TAB PO PRN (09:19)
[2019-08-11] MEDS: CARVEDILOL 3.125 MG (COREG) TABLET PO SCH ×2 (09:19→20:57)
[2019-08-11] MEDS: BACITRACIN OINTMENT 28 GM TUBE TOP SCH ×2 (09:20→20:56)
[2019-08-11] MEDS: POLYETHYLENE GLYCOL 17 GM (MIRALAX) PACK PO SCH ×2 (09:20→20:57)
--- NOTE | 2019-08-11 10:25 | Speech Therapy Daily Note ---
Speech Daily Progress Note Subjective Date Seen by Provider: Aug 11, 2019 Time Seen by Provider: 00:30 Patient was sitting in his wheelchair following PT when I entered his room. Patient states he slept well and is feeling better. He was started on muscle relaxer last night. Objective Patient completed a series of problem solving tasks with 90% given 10% verbal cues. Assessment Assessment Current Status: Good Progress Treatment Plan Continue Plan of Care Speech Short Term Goals Short Term Goals Short Term Goals 1) Patient will complete memory tasks related to his daily needs at 90% or greater, independently. 2) Patient will complete problem solving tasks related to his daily needs at 90% or greater, independently. 3) Patient will complete safety awareness tasks related to his daily needs at 90% or greater, independently. Speech Mcfp Goals Mcfp Goals Patient will improve cognitive-communication necessary for safety and daily living tasks with minimal assist. Speech-Plan Patient/Family Goals Patient/Family Goals: The patient has planned on moving in with his the [facility] upon discharge from rehab. Patient's discharge location will be determined at that time. Treatment Plan Speech Therapy Treatment Plan: Continue Plan of Care Patient has made good progress toward meeting ST goals. Treatment Duration: Aug 12, 2019 Frequency: 5 times per week Estimated Hrs Per Day: .5 hour per day Rehab Potential: Fair Barriers to Learning: Patient continues to have mild cognitive deficits. Pt/Family Agrees to Plan: Yes Safety Risks/Education Teaching Recipient: Patient Teaching Methods: Demonstration, Discussion Response to Teaching: Verbalize Understanding, Return Demonstration Education Topics Provided: Continued safety within his room and communication of wants/needs. Time Speech Therapy Time In: 09:00 Speech Therapy Time Out: 09:30 Total Billed Time: 30 Billed Treatment Time [address] Aug 11, 2019 10:25
[2019-08-11] MEDS: BISACODYL 10 MG SUPP (DULCOLAX) PR SCH ×2 (10:38→18:16)
--- NOTE | 2019-08-11 10:50 | Physical Therapy Daily Note ---
PT Daily Note-Current Subjective Pt in WC working with OT to start this session. PT & OT will co-treat this session due to patients fatigue, and decreased strength to work on functional movements with the UE and LE while standing. Appearance Pt in bed post-tx. Pt with nurse call, phone, and tray in reach with all needs met. Mental Status Patient Orientation: Person, Place, Situation Transfers SCALE: Activities may be completed with or without assistive devices. 5-Jmniljegbm-xycpssn completes the activity by him/herself with no assistance from a helper. 5-Set-up or Clean-up Assistance-helper sets up or cleans up; patient completes activity. [place] assists only prior to or following the activity. 4-Supervision or Touching Assistance-helper provides verbal cues and/or touching/steadying and/or contact guard assistance as patient completes activity. Assistance may be provided throughout the activity or intermittently. 3-Partial/Moderate Assistance-helper does LESS THAN HALF the effort. [place] lifts, holds or supports trunk or limbs, but provides less than half the effort. 2-Substantial/Maximal Assistance-helper does MORE THAN HALF the effort. [place] lifts or holds trunk or limbs and provides more than half the effort. 7-Wokfhemzf-qvjwnx does ALL the effort. Patient does none of the effort to complete the activity. Or, the assistance of 2 or more helpers is required for the patient to complete the activity. If activity was not attempted, code reason: 7-Patient Refused. 9-Not Applicable-not attempted and the patient did not perform the activity before the current illness, exacerbation or injury. 10-Not Attempted due to Environmental Limitations-(lack of equipment, weather restraints, etc.). 88-Not Attempted due to Medical Conditions or Safety Concerns. Sit to Lying (QC): 3 (modA to assist legs into bed.) Sit to Stand (QC): 2 (modA to maxA for sit to stands and for blocking knees to stand) Chair/Hpf-za-Gfxjw Xfer(QC): 3 (Olu to control slide board during transfer ) Weight Bearing Right Lower Extremity: Right Weight Bearing/Tolerated Left Lower Extremity: Left Weight Bearing/Tolerated Gait Training Gait Assistive Device: Parallel Bars Wheelchair Training Does the Pt Use a Wheelchair?: Yes Distance: 50' Wheel 50 ft with 2 turns (QC): 4 (SBA) Exercises Standing: Sit to Stand Standing Reps: 2 (standing limited by pt) OT attempted UE mobility with pt standing which pt had difficulty with. Treatments Pt performed sit <-> stands, standing endurance, WC training, bed mobility, transfer training. OT performed functional UE use, UE strengthening, bed mobility, transfer training Assessment Current Status: Fair Progress Pt has difficulty with removing hand from // bars while standing this date. PT Short Term Goals Short Term Goals Time Frame: Aug 02, 2019 Wheelchair Distance: 100' PT Alf Goals Alf Goals PT Alf Goals Time Frame: Aug 16, 2019 Sit to Lying (QC): 3 (Olu) Lying-Sitting on Side/Bed(QC): 3 (Kofi) Sit to Stand (QC): 1 Roll Left to Right (QC): 3 (Olu) Chair/Qqz-sk-Zcdrm Xfer(QC): 3 (Olu) Car Transfer (QC): 1 Walk 10 feet (QC): 88 Walk 10ft-Uneven Surface(QC): 88 Walk 50ft with 2 Turns (QC): 88 Walk 150 ft (QC): 88 Wheel 50 feet with 2 turns (QC: 5 1 Step (curb) (QC): 88 4 Steps (QC): 88 12 Steps (QC): 88 Picking up an Object (QC): 88 PT Plan Problem List Problem List: Activity Tolerance, Functional Strength, Safety, Balance, Gait, Transfer, Bed Mobility Treatment/Plan Treatment Plan: Continue Plan of Care Treatment Plan: Bed Mobility, Concurrent Therapy, Education, Functional Activity Jesus Alberto, Functional Strength, Group Therapy, Gait, Safety, Therapeutic Exercise, Transfers Treatment Duration: Aug 16, 2019 Frequency: At least 5 of 7 days/Wk (IRF) Estimated Hrs Per Day: 1.5 hours per day Patient and/or Family Agrees t: Yes Safety Risks/Education Patient Education: Gait Training, Transfer Techniques, Correct Positioning, W/C Management, Safety Issues Teaching Recipient: Patient Teaching Methods: Demonstration, Discussion Response to Teaching: Reinforcement Needed Time/GCodes Time In: 1030 Time Out: 1045 Total Billed Treatment Time: 15 Total Billed Treatment 1 visit 15' ALANA ACSTILLO PT Aug 11, 2019 10:50
--- NOTE | 2019-08-11 11:03 | Occupational Ther Daily Note ---
OT Current Status-Daily Note Subjective Pt. reports pain in back with movement. Does not report pain level. Pt. has had pain medications. Appearance Pt. up in wheelchair. Agrees to work with OT. Mental Status/Objective Patient Orientation: Person ADL-Treatment Therapy Code Descriptions/Definitions Functional [place] Measure: 0=Not Assessed/NA 4=Minimal Assistance 1=Total Assistance 5=Supervision or Setup 2=Maximal Assistance 6=Modified [place] 3=Moderate Assistance 7=Complete IndependenceSCALE: Activities may be completed with or without assistive devices. 1-Csyhfgevfg-ptoebhb completes the activity by him/herself with no assistance from a helper. 5-Set-up or Clean-up Assistance-helper sets up or cleans up; patient completes activity. [place] assists only prior to or following the activity. 4-Supervision or Touching Assistance-helper provides verbal cues and/or touching/steadying and/or contact guard assistance as patient completes activity. Assistance may be provided throughout the activity or intermittently. 3-Partial/Moderate Assistance-helper does LESS THAN HALF the effort. [place] lifts, holds or supports trunk or limbs, but provides less than half the effort. 2-Substantial/Maximal Assistance-helper does MORE THAN HALF the effort. [place] lifts or holds trunk or limbs and provides more than half the effort. 5-Gzamdrtqx-eqjafx does ALL the effort. Patient does none of the effort to complete the activity. Or, the assistance of 2 or more helpers is required for the patient to complete the activity. If activity was not attempted, code reason: 7-Patient Refused. 9-Not Applicable-not attempted and the patient did not perform the activity before the current illness, exacerbation or injury. 10-Not Attempted due to Environmental Limitations-(lack of equipment, weather restraints, etc.). 88-Not Attempted due to Medical Conditions or Safety Concerns. Lower Body Dressing (QC): 3 Other Treatment Pt. is up in chair. Declines shower or sponge bath, as he had a good shower yesterday. Pt. reports that he has already performed grooming tasks, and that he was assisted this a.m. with dressing. Pt. agrees to come to therapy gym. Practiced doffing/donning slipper socks with AE. Pt. able to doff socks with dressing stick. States that he is able to don socks with dressing stick and declines sock aide. Pt. attempted several times to don sock with DS, but unable to do so. OT provided sock aide and pt. attempted with this. Able to get sock onto foot, but unable to get sock pulled up. OT did this for him. Offered to take pt. outside for fresh air, but pt. declines due to the temperature. OT offers to get pt. blanket, but pt. would rather not. Stood at parallel bar by pulling up to stand. Required max assist. Stood approximately 5 seconds. Pt. states that he feels too weak at this time to stand. Practiced slide board transfers back and forth on mat. Pt. educated about importance of being able to do this for home, and that at home, surface levels will be uneven. Pt. requires min assist to place board, and then CGA to transfer to mat. Cues given and increased time needed, and pt. will stop to rest in between. Transferred back and forth 2 times. Pt. verbalizes he is tired. Completed pulleys from seated position for increased overall ROM and endurance. Pt. states that this tires him. Completed endurance task with fine motor nut/bolts. Pt. able to take them apart and put them together, but requires rest break. Completed short co- treatment with PT to assist pt.in stance again, and work on weight shifts and reaching to simulate pulling up pants. Pt. facilitated sit-insole filler parallel bars while OT assisted with upright posture and reaching. Pt. able to reach one time and quickly grab bar again. States that he does not feel strong enough to do this again. Pt. stood twice. Went back to room and pt. transferred to bed with min assist. All needs are met. Education OT Patient Education: Correct positioning, Exercise program, Modified ADL techniques, Progress toward Goal/Update tx plan, Purpose of tx/functional activities, Reviewed precautions, Rehab process, Transfer techniques, Use of adapted equipment Teaching Recipient: Patient Teaching Methods: Demonstration, Discussion Response to Teaching: Verbalize Understanding, Return Demonstration OT Short Term Goals Short Term Goals Lower Body Dressing(FIM): 3 Toilet/Commode Transfer(FIM): 3 Additional Short Term Goals: 1-Demonstrate ADL Tasks, 2-Verbalize Understanding, 3-ImproveStrength/Jesus Alberto 1=Demonstrate adherence to instructed precautions during ADL tasks. 2=Patient will verbalize/demonstrate understanding of assistive devic es/modifications for ADL. 3=Patient will improve strength/tolerance for activity to enable patient to perform ADL's. OT Public Health Advisor Goals Senior Care Goals Eating (QC): 6 Oral Hygiene (QC): 6 Shower/Bathe Self (QC): 6 Upper Body Dressing (QC): 6 Lower Body Dressing (QC): 5 On/Off Footwear (QC): 6 Toileting Hygiene (QC): 5 Toilet/Commode Transfer (QC): 5 Additional Goals: 1-Demonstrate ADL Tasks, 2-Verbalize Understanding, 3- ImproveStrength/Jesus Alberto 1=Demonstrate adherence to instructed precautions during ADL tasks. 2=Patient will verbalize/demonstrate understanding of assistive devices/modifications for ADL. 3=Patient will improve strength/tolerance for activity to enable patient to perform ADL's. OT Education/Plan Problem List/Assessment Assessment: Decreased Activ Tolerance, Decreased UE Strength, Dependent Transfers, Impaired Bed Mobility, Impaired Funct Balance, Impaired I ADL's, Impaired Self-Care Skills, Restricted Funct UE ROM Discharge Recommendations Plan/Recommendations: Continue POC Treatment Plan/Plan of Care Treatment,Training & Education: Yes Patient would benefit from OT for education, treatment and training to promote independence in ADL's, mobility, safety and/or upper extremity function for ADL's. Plan of Care: ADL Retraining, Caregiver Training, Concurrent Therapy, Function al Mobility, Group Exercise/Act as Ind, UE Funct Exercise/Act Treatment Duration: Jul 27, 2019 Frequency: At least 5 of 7 days/Wk (IRF) Estimated Hrs Per Day: 1.5 hours per day Agreement: Yes Rehab Potential: Fair Time/GCodes Start Time: 09:30 Stop Time: 10:45 Total Time Billed (hr/min): 75 Billed Treatment Time 1, ADL x 30minutes, Ex x 15minutes, FA x 30minutes SADIE SAUL OT Aug 11, 2019 11:03
--- NOTE | 2019-08-11 11:33 | Progress Note ---
PATRICKNIDIA SANCHEZ [facility] 08/11/19 1133: Progress Note CC: Cervical stenosis, Post lumbar laminectomy * He reports sleeping very well last night * He states the pain in his back has gotten much better, but is still present a round that incision site * He was tired from his therapy this morning, but states he thinks he did okay during it * He is able to sit up in the bed and get his feet off the side of the bed, but needs help after that point * He was able to take a couple steps today on the parallel bars, but stated he felt weaker today doing it * He is able to transfer using the slide board, but states he does need help positioning it and keeping his balance * He did eat a good breakfast this morning * He did report he feel like his legs are starting to get a little bit stronger each day ADENIKE REEDER DO 08/11/192049: Supervisory-Addendum Brief Verification & Attestation Participated in pt care: history, MDM, physical Personally performed: exam, history, MDM, supervision of care Care discussed with: Medical Student Procedures: n/a Results interpretation: Verified all documentation Verification and Attestation of Medical Student E/M Service A medical student performed and documented this service in my presence. I reviewed and verified all information documented by the medical student and made modifications to such information, when appropriate. I personally performed the physical exam and medical decision making. Adenike Reeder, Aug 11, 2019,20:50 NIDIA NGUYEN [facility] Aug 11, 2019 11:33 ADENIKE REEDER DO Aug 11, 2019 20:50
--- NOTE | 2019-08-11 15:35 | NUR ---
Reviewed weekly Rehab Team Conference Summary with patient. He was agreeable to information discussed, as well as agreeable to a continued stay with review on August 17. At patient's request, contacted his daughter, Christa to review Summary. Christa agreeable to information discussed, as well as agreeable to a continued stay. Christa states that she agrees the patient is not safe, at this time, to return home alone or return to his granddaughter's home. Christa mentioned [facility], as a possible option. Will present this option to patient and further explore.
[2019-08-11 18:00] VITALS: BP 105/66
--- NOTE | 2019-08-11 19:05 | NUR ---
bedside report received from JATINDER KERR, assume care of pt
[2019-08-11] MEDS: TERAZOSIN 5 MG (HYTRIN) CAPSULE PO SCH (20:48)
[2019-08-11] MEDS: risperiDONE 0.25 MG (RisperDAL) TAB PO SCH (20:48)
[2019-08-11] MEDS: CYCLOBENZAPRINE 10 MG (FLEXERIL) TAB PO PRN (20:48)
--- NOTE | 2019-08-11 20:48 | NUR ---
pt took Senokot 2 tabs & Surfak but refused miralax, pt b/p 96/57 Coreg 3.125mg held per doctors instructions pt requesting muscle relaxer, Flexeril 10mg given
[2019-08-11] MEDS: DONEPEZIL 10 MG (ARICEPT) TAB PO SCH (20:49)
[2019-08-12 05:52] VITALS: BP 115/70
[2019-08-12] MEDS: LACTOBACILLUS ACIDOPHILUS (PROBIOTIC) CAPSULE PO SCH ×3 (06:32→17:03)
[2019-08-12] MEDS: PANTOPRAZOLE 40 MG (PROTONIX) TAB PO SCH (06:32)
[2019-08-12] MEDS: TRIM/SULFAMETH 160/800 (SEPTRA DS) TAB PO SCH ×2 (06:32→17:03)
--- NOTE | 2019-08-12 07:10 | NUR ---
bedside report given to JATINDER KERR
[2019-08-12] MEDS: HYDROcodone/APAP 5 MG/325 MG (LORTAB) TAB PO PRN (07:21)
--- NOTE | 2019-08-12 07:49 | Cardiology Progress Note ---
Subjective Date Seen by Provider: Aug 12, 2019 Time Seen by Provider: 07:48 Subjective/Events-last exam Patient is in a chair, feeling well, no new complaint Review of Systems General: No Chills, No Night Sweats, No Fatigue, No Malaise, No Appetite, No Other HEENT: No Head Aches, No Visual Changes, No Eye Pain, No Ear Pain, No Dysphasia, No Sinus Congestion, No Post Nasal Drip, No Sore Throat, No Other Pulmonary: No Dyspnea, No Cough, No Pleuritic Chest Pain, No Other Cardiovascular: No: Chest Pain, Palpitations, Orthopnea, Paroxysmal Noc. Dyspnea, Edema, Lt Headedness, Other Objective-Cardiology Exam Last Set of Vital Signs Vital Signs 08/12/19 05:52 Temp 36.1 Pulse 63 Resp 20 B/P (MAP) 115/70 (85) Pulse Ox 97 O2 Delivery Room Air Capillary Refill : Less Than 3 Seconds I&O Intake and Output 08/12/19 00:00 Intake Total 580 ml Output Total 650 ml Balance -70 ml Intake Oral 580 ml Output Urine Total 650 ml # Voids 1 # Urine Diapers 1 General: Alert, Oriented X3 HEENT: Atraumatic, EOMI Neck: Supple, No JVD, No Thyromegaly Lungs: Clear to Auscultation, Normal Air Movement Heart: Regular Rate, Normal S1, Normal S2, No Murmurs Abdomen: Normal Bowel Sounds, Soft, No Tenderness, No Hepatosplenomegaly, No Masses Extremities: No Tenderness/Swelling Skin: No Rashes, No Breakdown, No Significant Lesion Neuro: Normal Speech, Normal Tone, Sensation Intact Psych/Mental Status: Mental Status NL A/P-Cardiology Admission Diagnosis Spinal Stenosis Chest pain CAD HTN Assessment/Plan Spinal stenosis, slipped disc, status post L2-3 laminectomy done on July 20, 2019, back pain continues to improve. Chest pain, chronic stable angina, no further episodes of chest pain reported. Continue to monitor Coronary artery disease, history of CABG, multiple intervention the past, recent cardiac catheterization with drug-eluting stent deployment to the vein graft to the diagonal artery, had a patent GRACE to LAD with patent stent beyond the anastomosis in the LAD, small vessel disease otherwise done by Dr. Perez in [facility], currently back on Plavix. Continue to monitor Hypertension, borderline hypotensive. Continue on losartan and coreg with parameters. Sinus bradycardia. Secondary to medication, continue to monitor heart rate Hyperlipidemia, maintained on statin Generalized weakness, lower and upper extremity weakness, cervical spinal stenosis with slipped disc, s/p L 2-[address] Bhatt earlier this morning. Dementia Clinical Quality Measures DVT/VTE Risk/Contraindication: Risk Factor Score Per Nursin RFS Level Per Nursing on Admit: 4+=Very High CHRISTIANO DAVIS MD Aug 12, 2019 07:49
[2019-08-12] MEDS: SENNA W/DOCUSATE (SENOKOT S) TABLET PO SCH ×2 (08:28→20:29)
[2019-08-12] MEDS: DOCUSATE CALCIUM 240 MG (SURFAK) CAP PO SCH ×2 (08:28→20:28)
[2019-08-12] MEDS: BISACODYL 10 MG SUPP (DULCOLAX) PR SCH ×2 (08:28→20:29)
[2019-08-12] MEDS: POLYETHYLENE GLYCOL 17 GM (MIRALAX) PACK PO SCH ×2 (08:28→20:29)
[2019-08-12] MEDS: BACITRACIN OINTMENT 28 GM TUBE TOP SCH ×2 (08:29→20:29)
--- NOTE | 2019-08-12 08:40 | Occupational Ther Daily Note ---
OT Current Status-Daily Note Subjective Pt alert, lying in bed. Pt had requested a different breakfast since he did not like the options given to him. Nrsg called kitchen to arrange meal that pt would eat. Pt agrees to therapy. Pt appears more alert and feeling better today. Pt continues to c/o back pain. Mental Status/Objective Patient Orientation: Person, Place, Time ADL-Treatment Supine to EOB, SBA using HOB elevated and bedrails. Pt sat on EOB to complete upper body sponge bath and don clothing. Pt bathed/dressed upper body after set up. Pt able to thread feet into pant leg. Attempted to stand to hike pants, pt stood for a few seconds then sat back down. Min A for pt to go from EOB to supine to hike pants over hips with min A. Pt then sat back up on EOB to transfer with sliding board to w/c with SBA and placement of w/c and board. Pt sat at sink to complete oral care and grooming by self. Pt then requested to go back to bed to eat breakfast. Assist to position w/c and place sliding board then assist to get pants unstuck, pt was able to complete transfer with SBA after. Pt able to pull self up in bed using headboard hand holds. Pt takes increased time to complete tasks due to increased pain and slow mobility. After therapy, pt lying in bed with call light/phone in reach. All needs met in room. Therapy Code Descriptions/Definitions Functional [place] Measure: 0=Not Assessed/NA 4=Minimal Assistance 1=Total Assistance 5=Supervision or Setup 2=Maximal Assistance 6=Modified [place] 3=Moderate Assistance 7=Complete IndependenceSCALE: Activities may be completed with or without assistive devices. 8-Dimpbecfpn-axjnlli completes the activity by him/herself with no assistance from a helper. 5-Set-up or Clean-up Assistance-helper sets up or cleans up; patient completes activity. [place] assists only prior to or following the activity. 4-Supervision or Touching Assistance-helper provides verbal cues and/or touching/steadying and/or contact guard assistance as patient completes activity. Assistance may be provided throughout the activity or intermittently. 3-Partial/Moderate Assistance-helper does LESS THAN HALF the effort. [place] lifts, holds or supports trunk or limbs, but provides less than half the effort. 2-Substantial/Maximal Assistance-helper does MORE THAN HALF the effort. [place] lifts or holds trunk or limbs and provides more than half the effort. 9-Caqmjwtqa-ewbeff does ALL the effort. Patient does none of the effort to complete the activity. Or, the assistance of 2 or more helpers is required for the patient to complete the activity. If activity was not attempted, code reason: 7-Patient Refused. 9-Not Applicable-not attempted and the patient did not perform the activity before the current illness, exacerbation or injury. 10-Not Attempted due to Environmental Limitations-(lack of equipment, weather restraints, etc.). 88-Not Attempted due to Medical Conditions or Safety Concerns. Eating (QC): 6 Oral Hygiene (QC): 6 Upper Body Dressing (QC): 5 Lower Body Dressing (QC): 3 OT Short Term Goals Short Term Goals Lower Body Dressing(FIM): 3 Toilet/Commode Transfer(FIM): 3 Additional Short Term Goals: 1-Demonstrate ADL Tasks, 2-Verbalize Understanding, 3-ImproveStrength/Jesus Alberto 1=Demonstrate adherence to instructed precautions during ADL tasks. 2=Patient will verbalize/demonstrate understanding of assistive devices/modifications for ADL. 3=Patient will improve strength/tolerance for activity to enable patient to perform ADL's. OT Qc Analyst Goals Correction Goals Eating (QC): 6 Oral Hygiene (QC): 6 Shower/Bathe Self (QC): 6 Upper Body Dressing (QC): 6 Lower Body Dressing (QC): 5 On/Off Footwear (QC): 6 Toileting Hygiene (QC): 5 Toilet/Commode Transfer (QC): 5 Additional Goals: 1-Demonstrate ADL Tasks, 2-Verbalize Understanding, 3- ImproveStrength/Jesus Alberto 1=Demonstrate adherence to instructed precautions during ADL tasks. 2=Patient will verbalize/demonstrate understanding of assistive devices/modifications for ADL. 3=Patient will improve strength/tolerance for activity to enable patient to perform ADL's. OT Education/Plan Problem List/Assessment Assessment: Decreased Activ Tolerance, Impaired Coordination, Impaired Funct B alance, Impaired Self-Care Skills Discharge Recommendations Plan/Recommendations: Continue POC Treatment Plan/Plan of Care Patient would benefit from OT for education, treatment and training to promote independence in ADL's, mobility, safety and/or upper extremity function for ADL's. Plan of Care: ADL Retraining, Caregiver Training, Concurrent Therapy, Functional Mobility, Group Exercise/Act as Ind, UE Funct Exercise/Act Treatment Duration: Jul 27, 2019 Frequency: At least 5 of 7 days/Wk (IRF) Estimated Hrs Per Day: 1.5 hours per day Agreement: Yes Rehab Potential: Fair Time/GCodes Start Time: 06:45 Stop Time: 08:00 Total Time Billed (hr/min): 75 Billed Treatment Time 1 visit-ADL 5 (75 min) SNEHA GARCIA Aug 12, 2019 08:40
--- NOTE | 2019-08-12 09:28 | PM&R Progress Note ---
Subjective HPI/CC On Admission Date Seen by Provider: Aug 12, 2019 Time Seen by Provider: 08:45 CC: Cervical spine injury non-traumatic HPI: This is a 78yoWM who presented to the Hospital with significant compromise in function, was found to have significant cervical spine stenosis causing generalized weakness globally, that was complicated with delirium post- operatively in addition to a UTI diagnosis. Pt previously doctored with Dr. Tyler Danielson and did not see a regular taker down although he has had Bypass surgery and has known CAD. Pt was doing well but had a lengthy acute care course and is in need of significant rehabilitation, prior to returning home. He seems to be very depressed, very tearful when I meet him and reports that he is about to turn 79 next month. I have tried to reassure him and I have put in a behavioral health consult in for him because of obvious tearfulness and overwhelmed feeling and loss of independence that he will need to be aggressively treated for in order to return home safely. Previously he used a walker for the past 6 months prior to admission, had lumbar spine surgery then was discharged home and home PT Collette Ramos evaluated the Pt to have such se higinio weakness that he was total care so he was sent to the ER for workup and from there thing progressed into cervical spine MRI showing severe stenosis and Dr. Bhatt performed surgery with good results but was so severe it was a dural tear during the surgery and he has become quite debilitated. He is urinating well, hasn't had a BM in several days so will need to work on that when he is admitted into the inpatient rehab unit. Overall he will be aggressively treated in order to re-gain his independence in order to return home. Subjective/Events-last exam Pt doing pretty well Pt could have had a more meaningful recovery if it hadn't been for his deficits of the hearing loss in addition to his dementia Back incision is still draining but it is only Serous type No fever Incontinence is much improved since Dr. Arana started him on Detrol twice daily and he is very pleased about that Bowels are moving well and overall had a lot of bowel movements the other night so he didn't sleep as well as he did the night before Bactroban is being placed on the incision Check meds and labs Reviewed therapy notes Conferred with loom repairer of Systems General: Fatigue Musculoskeletal: back pain Objective Exam Vital Signs Vital Signs Date Time Temp Pulse Resp B/P (MAP) Pulse Ox O2 Delivery O2 Flow Rate FiO2 08/12/19 08:00 Room Air 08/12/19 05:52 36.1 63 20 115/70 (85) 97 Capillary Refill : Less Than 3 Seconds General Appearance: No Apparent Distress, WD/WN, Chronically ill HEENT: PERRL/EOMI, Normal ENT Inspection, Pharynx Normal, Moist Mucous Membranes Neck: Full Range of Motion, Normal Inspection, Non Tender, Supple Respiratory: Chest Non Tender, Lungs Clear, Normal Breath Sounds, No Accessory Muscle Use, No Respiratory Distress Cardiovascular: Regular Rate, Rhythm, No Gallop, No Murmur Gastrointestinal: Normal Bowel Sounds, No Organomegaly, No Pulsatile Mass, Non Tender, Soft Back: Normal Inspection, No CVA Tenderness, Decreased Range of Motion Extremity: Normal Capillary Refill, Normal Inspection, Normal Range of Motion, Non Tender, No Calf Tenderness, No Pedal Edema Neurologic/Psychiatric: Alert, Oriented x3, Normal Mood/Affect, retail delivery driver II-XII Norm as Tested, Motor Weakness Skin: Normal Color, Warm/Dry Lymphatic: No Adenopathy Results/Procedures Lab Patient resulted labs reviewed. FIM Transfers Therapy Code Descriptions/Definitions Functional [place] Measure: 0=Not Assessed/NA 4=Minimal Assistance 1=Total Assistance 5=Supervision or Setup 2=Maximal Assistance 6=Modified [place] 3=Moderate Assistance 7=Complete IndependenceSCALE: Activities may be completed with or without assistive devices. 0-Wfsbdlafzb-zwfmhwx completes the activity by him/herself with no assistance from a helper. 5-Set-up or Clean-up Assistance-helper sets up or cleans up; patient completes activity. [place] assists only prior to or following the activity. 4-Supervision or Touching Assistance-helper provides verbal cues and/or touching/steadying and/or contact guard assistance as patient completes activity. Assistance may be provided throughout the activity or intermittently. 3-Partial/Moderate Assistance-helper does LESS THAN HALF the effort. [place] lifts, holds or supports trunk or limbs, but provides less than half the effort. 2-Substantial/Maximal Assistance-helper does MORE THAN HALF the effort. [place] lifts or holds trunk or limbs and provides more than half the effort. 9-Swqxdeyhu-llgeri does ALL the effort. Patient does none of the effort to complete the activity. Or, the assistance of 2 or more helpers is required for the patient to complete the activity. If activity was not attempted, code reason: 7-Patient Refused. 9-Not Applicable-not attempted and the patient did not perform the activity before the current illness, exacerbation or injury. 10-Not Attempted due to Environmental Limitations-(lack of equipment, weather restraints, etc.). 88-Not Attempted due to Medical Conditions or Safety Concerns. Transfers (B, C, W/C) (FIM): 3 Roll Left to Right (QC): 4 (SBA) Sit to Lying (QC): 3 (modA to assist legs into bed.) Sit to Stand (QC): 2 (modA to maxA for sit to stands and for blocking knees to stand) Chair/Ebm-mc-Etpab Xfer(QC): 3 (Andrew to control slide board during transfer ) Bed to/from Chair: 4 Car Transfer (QC): 1 Gait Training Does the Patient Walk?: No and Walking Goal NOT indicated Distance: 6 steps x4 in // bars with stance leg blocked Walk 10 feet (QC): 5 Walk 50 ft with 2 Turns(QC): 5 Walk 150 ft (QC): 5 Walking 10ft/uneven surface-QC: 88 Gait Persons Needed: 1 Gait Assistive Device: Parallel Bars Wheelchair Training Does the Pt Use a Wheelchair?: Yes Wheelchair (FIM): 1 Wheelchair Distance: 9=021-44 ft Distance: 50' Wheel 50 ft with 2 turns (QC): 4 (SBA) Wheel 150 ft (QC): 4 Type of Wheelchair: Manual ADL-Treatment Eating (QC): 6 Groomin (Pt brushed hair at bed level, he was able to gather hair brush from side table and complete task without assistance.) Oral Hygiene (QC): 6 Bathing Location: L Arm, R Arm, Chest, Abdomen, Perineal Area Shower/Bathe Self (QC): 4 (Pt. requires cues to sequence steps. Min assist to adequately was rear janna area while seated.) Upper Body Dressing (QC): 5 Lower Body Dressing (QC): 3 On/Off Footwear (QC): 2 (OT educated pt on using sock aid to don socks. OT assisted pt with doffing socks, & demo'd use of sock aid. Pt able to don sock on left foot using sock aid, required assistance with right foot secondary to dressing on heel of foot) Toileting Hygiene (QC): 5 (Pt used urinal at bed level to void. Pt was able to obtain urinal from edge of bed and place onto bedside table once he had voided. OT assisted pt with emptying contents of urinal.) Toilet Transfer (QC): 1 (Pt able to perform SB transfer from EOB to drop arm commode with assist for hand placement and assist scooting across SB. Pt required x2 assist for squat pivot transfer from commode to recliner.) Assessment/Plan Assessment and Plan Assess & Plan/Chief Complaint Assessment: Spinal cord trauma from severe stenosis Debility CAD Delirium now improved s/p UTI completed treatment but now symptoms again and confirmed another UTI so place on Bactrim empirically awaiting UCx Constipation now resolved 07/28/19 HTN HLP Cognitive deficit SLUMS Depression w/tearfulness Bladder incontinence improved on Dr Yasmeen csah Bowel incontinence Plan: Monitor bowel and bladder incontinence IRF protocol Increase strength with IRF protocols BM regimen to hold due to loose stools Started antidepressant Monitor BP s/p DC steroids Patient appears to be in need of nursing facility skilled care at discharge Dr Arana consultation is appreciated (1) Spinal cord injury (2) Generalized Weakness (3) Cervical spinal stenosis Status: Acute (4) Neuroforaminal stenosis of spine Status: Acute (5) Essential (primary) hypertension Status: Chronic (6) Lumbar spinal stenosis Status: Acute (7) Slipped intervertebral disc Status: Acute (8) Delirium Status: Acute (9) Incidental durotomy Status: Acute (10) CAD (coronary artery disease) Status: Chronic YANETH REEDER DO Aug 12, 2019 09:28
[2019-08-12] MEDS: CLOPIDOGREL 75 MG (PLAVIX) TABLET PO SCH (09:39)
[2019-08-12] MEDS: LORATADINE (CLARITIN) 10 MG TAB PO SCH (09:39)
[2019-08-12] MEDS: LOSARTAN 25 MG (COZAAR) TAB PO SCH (09:39)
[2019-08-12] MEDS: DULoxetine 30 MG (CYMBALTA) CAP PO SCH (09:39)
[2019-08-12] MEDS: CARVEDILOL 3.125 MG (COREG) TABLET PO SCH ×2 (09:39→20:29)
[2019-08-12] MEDS: CYCLOBENZAPRINE 10 MG (FLEXERIL) TAB PO PRN (09:39)
[2019-08-12] MEDS: ASPIRIN E.C. 81 MG (ECOTRIN) TAB PO SCH (09:39)
[2019-08-12] MEDS: TOLTERODINE LA 4 MG (DETROL) CAP PO SCH ×2 (09:39→20:28)
--- NOTE | 2019-08-12 09:58 | Physical Therapy Daily Note ---
PT Daily Note-Current Subjective Patient in bed pre tx, agrees to PT, has no complaints of pain at rest. Appearance Patient in wheelchair at bedside post tx, has nurse call, phone, tray, all needs met. Mental Status Patient Orientation: Person, Place, Situation Transfers SCALE: Activities may be completed with or without assistive devices. 6-Ttywgwzbnd-ocxwbju completes the activity by him/herself with no assistance from a helper. 5-Set-up or Clean-up Assistance-helper sets up or cleans up; patient completes activity. [place] assists only prior to or following the activity. 4-Supervision or Touching Assistance-helper provides verbal cues and/or touching/steadying and/or contact guard assistance as patient completes activity. Assistance may be provided throughout the activity or intermittently. 3-Partial/Moderate Assistance-helper does LESS THAN HALF the effort. [place] lifts, holds or supports trunk or limbs, but provides less than half the effort. 2-Substantial/Maximal Assistance-helper does MORE THAN HALF the effort. [place] lifts or holds trunk or limbs and provides more than half the effort. 5-Aktdacdbz-dicmjy does ALL the effort. Patient does none of the effort to complete the activity. Or, the assistance of 2 or more helpers is required for the patient to complete the activity. If activity was not attempted, code reason: 7-Patient Refused. 9-Not Applicable-not attempted and the patient did not perform the activity before the current illness, exacerbation or injury. 10-Not Attempted due to Environmental Limitations-(lack of equipment, weather restraints, etc.). 88-Not Attempted due to Medical Conditions or Safety Concerns. Roll Left to Right (QC): 4 Sit to Lying (QC): 4 Chair/Apu-xg-Ncsfn Xfer(QC): 2 Patient performed one sliding board transfer with min assist and two stand pivot transfers with max assist. Patient needs cues for hand placement and positioning. Weight Bearing Right Lower Extremity: Right Weight Bearing/Tolerated Left Lower Extremity: Left Weight Bearing/Tolerated Gait Training Distance: 5'x3 Gait Persons Needed: 1 Gait Assistive Device: Parallel Bars WC follow, max assist to parking lot supervisor the parallel bars, he is able to advance his legs without assist but has a tendency to keep his hands on the parallel bars too far back and lean backward into them Wheelchair Training Does the Pt Use a Wheelchair?: Yes Distance: 100'x2 Wheel 50 ft with 2 turns (QC): 4 Type of Wheelchair: Manual Exercises Seated Therapy Exercises: Ankle pumps, Long arc quads, Hip flexion Seated Reps: 20 LAQ alternating for 5 min NuStep Minutes: 15 NuStep Workload: 4 Treatments bed mobility and transfers, ambulation, LE exercise Assessment Current Status: Fair Progress patient seemed to have more difficulty with sliding board transfer today, more fatigue PT Short Term Goals Short Term Goals Time Frame: Aug 02, 2019 Wheelchair Distance: 50' PT Community Pharmacist Goals Community Pharmacist Goals PT Fdc Goals Time Frame: Aug 16, 2019 Sit to Lying (QC): 3 (Olu) Lying-Sitting on Side/Bed(QC): 3 (Kofi) Sit to Stand (QC): 1 Roll Left to Right (QC): 3 (Olu) Chair/Wpw-wk-Xtnza Xfer(QC): 3 (Olu) Car Transfer (QC): 1 Walk 10 feet (QC): 88 Walk 10ft-Uneven Surface(QC): 88 Walk 50ft with 2 Turns (QC): 88 Walk 150 ft (QC): 88 Wheel 50 feet with 2 turns (QC: 5 1 Step (curb) (QC): 88 4 Steps (QC): 88 12 Steps (QC): 88 Picking up an Object (QC): 88 PT Plan Problem List Problem List: Activity Tolerance, Functional Strength, Safety, Balance, Gait, Transfer, Bed Mobility, ROM Treatment/Plan Treatment Plan: Continue Plan of Care Treatment Plan: Bed Mobility, Concurrent Therapy, Education, Functional Activity Jesus Alberto, Functional Strength, Group Therapy, Gait, Safety, Therapeutic Exercise, Transfers Treatment Duration: Aug 16, 2019 Frequency: At least 5 of 7 days/Wk (IRF) Estimated Hrs Per Day: 1.5 hours per day Patient and/or Family Agrees t: Yes Safety Risks/Education Patient Education: Gait Training, Transfer Techniques, Correct Positioning, W/C Management, Safety Issues Teaching Recipient: Patient Teaching Methods: Demonstration, Discussion Response to Teaching: Reinforcement Needed Time/GCodes Time In: 0900 Time Out: 1000 Total Billed Treatment Time: 60 Total Billed Treatment 1 visit GT 15' EX 30' FA 15' ALANA CISNEROS PT Aug 12, 2019 09:58
--- NOTE | 2019-08-12 09:59 | Progress Note ---
NIDIA NGUYEN [facility] 08/12/19 0959: Progress Note CC: Post Lumbar Laminectomy, Cervical stenosis, UTI * He reports having significant gas last night with abdominal pain that kept him up most of the night * He reports his back is sore mainly after moving from bed to chair, but is better when he is resting * He complains of a runny nose and some cough from the nose draining that has gotten worse the last day or two * He has been eating better recently * He has had no significant changes in strength and is still able to transfer using a slide board ADENIKE REEDER DO 08/12/19 1708: Supervisory-Addendum Brief Verification & Attestation Participated in pt care: history, MDM, physical Personally performed: exam, history, MDM, supervision of care Care discussed with: Medical Student Procedures: n/a Results interpretation: Verified all documentation Verification and Attestation of Medical Student E/M Service A medical student performed and documented this service in my presence. I reviewed and verified all information documented by the medical student and made modifications to such information, when appropriate. I personally performed the physical exam and medical decision making. Adenike Reeder, Aug 12, 2019,17:08 [facility] Aug 12, 2019 09:59 ADENIKE REEDER DO Aug 12, 2019 17:08
--- NOTE | 2019-08-12 11:22 | Speech Therapy Daily Note ---
Speech Daily Progress Note Subjective Date Seen by Provider: Aug 12, 2019 Time Seen by Provider: 00:30 Patient was sitting up in his wheelchair when I entered his room. He states he was full of "gas" last night which kept him from sleeping well. Objective Patient completed a series of memory questions related to his daily needs with 90% accuracy given 20% cues. Assessment Assessment Current Status: Good Progress Treatment Plan Continue Plan of Care Speech Short Term Goals Short Term Goals Short Term Goals 1) Patient will complete memory tasks related to his daily needs at 90% or greater, independently. 2) Patient will complete problem solving tasks related to his daily needs at 90% or greater, independently. 3) Patient will complete safety awareness tasks related to his daily needs at 90% or greater, independently. Speech Senior Living Goals Senior Living Goals Patient will improve cognitive-communication necessary for safety and daily living tasks with minimal assist. Speech-Plan Patient/Family Goals Patient/Family Goals: Patient still plans on temporarily living with his [facility], however due to his slow progress his discharge location will be determined at a later time. Treatment Plan Speech Therapy Treatment Plan: Continue Plan of Care Patient is progressing well with ST goals. Treatment Duration: Aug 17, 2019 Frequency: 5 times per week Estimated Hrs Per Day: .5 hour per day Rehab Potential: Fair Barriers to Learning: Patient is not progressing well with physical activity, he continues to have mild cognitive deficits. Pt/Family Agrees to Plan: Yes Safety Risks/Education Teaching Recipient: Patient Teaching Methods: Demonstration, Discussion Response to Teaching: Verbalize Understanding, Return Demonstration Education Topics Provided: Continued communication of his wants/needs. Time Speech Therapy Time In: 10:00 Speech Therapy Time Out: 10:30 Total Billed Time: 30 Billed Treatment Time 1L[address] ST Aug 12, 2019 11:22
--- NOTE | 2019-08-12 11:56 | Physical Therapy Daily Note ---
PT Daily Note-Current Subjective Patient in bed pre tx, agrees to PT, voices no complaints of pain. Appearance Patient in bed post tx with nurse call, phone, tray, laying on right side for pressure relief. Mental Status Patient Orientation: Person, Place, Situation Transfers SCALE: Activities may be completed with or without assistive devices. 3-Bekzyaeefm-dzrdkzp completes the activity by him/herself with no assistance from a helper. 5-Set-up or Clean-up Assistance-helper sets up or cleans up; patient completes activity. [place] assists only prior to or following the activity. 4-Supervision or Touching Assistance-helper provides verbal cues and/or touching/steadying and/or contact guard assistance as patient completes activity. Assistance may be provided throughout the activity or intermittently. 3-Partial/Moderate Assistance-helper does LESS THAN HALF the effort. [place] lift s, holds or supports trunk or limbs, but provides less than half the effort. 2-Substantial/Maximal Assistance-helper does MORE THAN HALF the effort. [place] lifts or holds trunk or limbs and provides more than half the effort. 4-Ebsdadlvg-drdisn does ALL the effort. Patient does none of the effort to complete the activity. Or, the assistance of 2 or more helpers is required for the patient to complete the activity. If activity was not attempted, code reason: 7-Patient Refused. 9-Not Applicable-not attempted and the patient did not perform the activity before the current illness, exacerbation or injury. 10-Not Attempted due to Environmental Limitations-(lack of equipment, weather restraints, etc.). 88-Not Attempted due to Medical Conditions or Safety Concerns. Weight Bearing Right Lower Extremity: Right Weight Bearing/Tolerated Left Lower Extremity: Left Weight Bearing/Tolerated Exercises Supine Ex: Ankle pumps, Quad Set, Glut sets, Heel Slides, Short Arc Quads, Straight leg raise, Hip abd/add Supine Reps: 20 Treatments LE exercise Assessment Current Status: Fair Progress weaker on right side PT Short Term Goals Short Term Goals Time Frame: Aug 02, 2019 Wheelchair Distance: 100'x2 PT Longterm Goals Scrap Preparation Supervisor Goals PT Scrap Preparation Supervisor Goals Time Frame: Aug 16, 2019 Sit to Lying (QC): 3 (Olu) Lying-Sitting on Side/Bed(QC): 3 (Kofi) Sit to Stand (QC): 1 Roll Left to Right (QC): 3 (Olu) Chair/Oie-xx-Jvczd Xfer(QC): 3 (Olu) Car Transfer (QC): 1 Walk 10 feet (QC): 88 Walk 10ft-Uneven Surface(QC): 88 Walk 50ft with 2 Turns (QC): 88 Walk 150 ft (QC): 88 Wheel 50 feet with 2 turns (QC: 5 1 Step (curb) (QC): 88 4 Steps (QC): 88 12 Steps (QC): 88 Picking up an Object (QC): 88 PT Plan Problem List Problem List: Activity Tolerance, Functional Strength, Safety, Balance, Gait, Transfer, Bed Mobility, ROM Treatment/Plan Treatment Plan: Continue Plan of Care Treatment Plan: Bed Mobility, Concurrent Therapy, Education, Functional Activity Jesus Alberto, Functional Strength, Group Therapy, Gait, Safety, Therapeutic Exercise, Transfers Treatment Duration: Aug 16, 2019 Frequency: At least 5 of 7 days/Wk (IRF) Estimated Hrs Per Day: 1.5 hours per day Patient and/or Family Agrees t: Yes Safety Risks/Education Patient Education: Correct Positioning, Safety Issues Teaching Recipient: Patient Teaching Methods: Demonstration, Discussion Response to Teaching: Reinforcement Needed Time/GCodes Time In: 1140 Time Out: 1155 Total Billed Treatment Time: 15 Total Billed Treatment 1 visit EX Kermit' ALANA CISNEROS PT Aug 12, 2019 11:56
[2019-08-12 17:12] VITALS: BP 118/80
[2019-08-12] MEDS: TERAZOSIN 5 MG (HYTRIN) CAPSULE PO SCH (20:28)
[2019-08-12] MEDS: DONEPEZIL 10 MG (ARICEPT) TAB PO SCH (20:28)
[2019-08-12] MEDS: risperiDONE 0.25 MG (RisperDAL) TAB PO SCH (20:29)
[2019-08-12 21:00] VITALS: BP 102/63
[2019-08-13] MEDS: HYDROcodone/APAP 5 MG/325 MG (LORTAB) TAB PO PRN ×3 (01:45→20:12)
[2019-08-13 05:26] VITALS: BP 111/74
[2019-08-13] MEDS: LACTOBACILLUS ACIDOPHILUS (PROBIOTIC) CAPSULE PO SCH ×3 (06:22→17:14)
[2019-08-13] MEDS: PANTOPRAZOLE 40 MG (PROTONIX) TAB PO SCH (06:22)
[2019-08-13] MEDS: TRIM/SULFAMETH 160/800 (SEPTRA DS) TAB PO SCH ×2 (06:22→17:14)
[2019-08-13] MEDS: ASPIRIN E.C. 81 MG (ECOTRIN) TAB PO SCH (08:15)
[2019-08-13] MEDS: DOCUSATE CALCIUM 240 MG (SURFAK) CAP PO SCH ×2 (08:16→21:12)
[2019-08-13] MEDS: LOSARTAN 25 MG (COZAAR) TAB PO SCH (08:16)
[2019-08-13] MEDS: DULoxetine 30 MG (CYMBALTA) CAP PO SCH (08:16)
[2019-08-13] MEDS: LORATADINE (CLARITIN) 10 MG TAB PO SCH (08:16)
[2019-08-13] MEDS: SENNA W/DOCUSATE (SENOKOT S) TABLET PO SCH ×2 (08:16→21:11)
[2019-08-13] MEDS: CLOPIDOGREL 75 MG (PLAVIX) TABLET PO SCH (08:16)
[2019-08-13] MEDS: TOLTERODINE LA 4 MG (DETROL) CAP PO SCH ×2 (08:16→20:12)
[2019-08-13] MEDS: CARVEDILOL 3.125 MG (COREG) TABLET PO SCH ×2 (08:16→20:12)
[2019-08-13] MEDS: POLYETHYLENE GLYCOL 17 GM (MIRALAX) PACK PO SCH ×2 (08:17→21:11)
[2019-08-13] MEDS: BISACODYL 10 MG SUPP (DULCOLAX) PR SCH ×2 (08:17→21:12)
[2019-08-13] MEDS: BACITRACIN OINTMENT 28 GM TUBE TOP SCH ×2 (09:00→21:12)
--- NOTE | 2019-08-13 11:25 | Physical Therapy Daily Note ---
PT Daily Note-Current Pain Numeric Pain Scale: 6 Location: Distal Location Body Site: Back Comment: low back from surgery Appearance Upon arrival, pt in bed awake and alert. At end of session sitting up in w/c with call light, phone and bedside table within reach Mental Status Patient Orientation: Person, Place, Time, Eyes Open, Situation Transfers SCALE: Activities may be completed with or without assistive devices. 2-Vxyyrqeuaw-uqfflgr completes the activity by him/herself with no assistance from a helper. 5-Set-up or Clean-up Assistance-helper sets up or cleans up; patient completes activity. [place] assists only prior to or following the activity. 4-Supervision or Touching Assistance-helper provides verbal cues and/or touching/steadying and/or contact guard assistance as patient completes activity. Assistance may be provided throughout the activity or intermittently. 3-Partial/Moderate Assistance-helper does LESS THAN HALF the effort. [place] lifts, holds or supports trunk or limbs, but provides less than half the effort. 2-Substantial/Maximal Assistance-helper does MORE THAN HALF the effort. [place] lifts or holds trunk or limbs and provides more than half the effort. 3-Nnczfbiuu-qybhfz does ALL the effort. Patient does none of the effort to complete the activity. Or, the assistance of 2 or more helpers is required for the patient to complete the activity. If activity was not attempted, code reason: 7-Patient Refused. 9-Not Applicable-not attempted and the patient did not perform the activity before the current illness, exacerbation or injury. 10-Not Attempted due to Environmental Limitations-(lack of equipment, weather restraints, etc.). 88-Not Attempted due to Medical Conditions or Safety Concerns. Roll Left to Right (QC): 4 Sit to Lying (QC): 4 Chair/Bku-nb-Eexlw Xfer(QC): 4 (sliding board transfer with skilled verb inst and close SBA) Weight Bearing Right Lower Extremity: Right Weight Bearing/Tolerated Left Lower Extremity: Left Weight Bearing/Tolerated Wheelchair Training Does the Pt Use a Wheelchair?: Yes Wheelchair Distance: 1=up to 49 ft Distance: within room and bathroom, tight space training Type of Wheelchair: Manual min A at times Exercises Seated Therapy Exercises: Ankle pumps, Long arc quads, Chair press-ups (5 reps, 4 sets, rest breaks required to improve performance), Hip flexion, Hamstring Curls, Hip abd/add Seated Reps: 20 (each LE, increased difficulty and decreased ROM with RLE) Treatments education, safety, bed mobility, sliding board transfer training, sitting ex, sitting balance, strength, functional mobility, activity tolerance Assessment Current Status: Good Progress improving with decreasing assist required with sliding board transfers, strength improving. Continues with difficulty during transfers with LE and UE weakness PT Short Term Goals Short Term Goals Time Frame: Aug 02, 2019 Wheelchair Distance: 100'x2 PT Group Home Goals Pecan Picker Goals PT Group Home Goals Time Frame: Aug 16, 2019 Sit to Lying (QC): 3 (Olu) Lying-Sitting on Side/Bed(QC): 3 (Kofi) Sit to Stand (QC): 1 Roll Left to Right (QC): 3 (Olu) Chair/Gjj-vw-Hmsfx Xfer(QC): 3 (Olu) Car Transfer (QC): 1 Walk 10 feet (QC): 88 Walk 10ft-Uneven Surface(QC): 88 Walk 50ft with 2 Turns (QC): 88 Walk 150 ft (QC): 88 Wheel 50 feet with 2 turns (QC: 5 1 Step (curb) (QC): 88 4 Steps (QC): 88 12 Steps (QC): 88 Picking up an Object (QC): 88 PT Plan Treatment/Plan Treatment Plan: Continue Plan of Care Treatment Plan: Bed Mobility, Concurrent Therapy, Education, Functional Activit y Jesus Alberto, Functional Strength, Group Therapy, Gait, Safety, Therapeutic Exercise, Transfers Treatment Duration: Aug 16, 2019 Frequency: At least 5 of 7 days/Wk (IRF) Estimated Hrs Per Day: 1.5 hours per day Patient and/or Family Agrees t: Yes Safety Risks/Education Patient Education: Transfer Techniques, Correct Positioning, W/C Management, Safety Issues Teaching Recipient: Patient Teaching Methods: Discussion Response to Teaching: Verbalize Understanding, Return Demonstration Time/GCodes Time In: 1100 Time Out: 1132 Total Billed Treatment Time: 32 Total Billed Treatment 1 visit, FA X17 min, EX x15 min MINOR ABDULLAHI PTA Aug 13, 2019 11:25
--- NOTE | 2019-08-13 12:29 | PM&R Progress Note ---
Subjective HPI/CC On Admission Date Seen by Provider: Aug 13, 2019 Time Seen by Provider: 12:00 CC: Cervical spine injury non-traumatic HPI: This is a 78yoWM who presented to the Hospital with significant compromise in function, was found to have significant cervical spine stenosis causing generalized weakness globally, that was complicated with delirium post- operatively in addition to a UTI diagnosis. Pt previously doctored with Dr. Tyler Danielson and did not see a regular court abstractor although he has had Bypass surgery and has known CAD. Pt was doing well but had a lengthy acute care course and is in need of significant rehabilitation, prior to returning home. He seems to be very depressed, very tearful when I meet him and reports that he is about to turn 79 next month. I have tried to reassure him and I have put in a behavioral health consult in for him because of obvious tearfulness and overwhelmed feeling and loss of independence that he will need to be aggressively treated for in order to return home safely. Previously he used a walker for the past 6 months prior to admission, had lumbar spine surgery then was discharged home and home PT Collette Ramos evaluated the Pt to have such se higinio weakness that he was total care so he was sent to the ER for workup and from there thing progressed into cervical spine MRI showing severe stenosis and Dr. Bhatt performed surgery with good results but was so severe it was a dural tear during the surgery and he has become quite debilitated. He is urinating well, hasn't had a BM in several days so will need to work on that when he is admitted into the inpatient rehab unit. Overall he will be aggressively treated in order to re-gain his independence in order to return home. Subjective/Events-last exam Pt doing pretty well No modifiable factors in order to improve his status Back incision is still draining but it is only Serous type No fever Incontinence is much improved since Dr. Arana started him on Detrol twice daily and he is very pleased about that Bowels are moving regularly Bactroban is being placed on the incision UCx noted with Bactrim on board since empiric placement Check meds and labs Reviewed therapy notes Conferred with slasher runner of Systems General: Fatigue Musculoskeletal: back pain Objective Exam Vital Signs Vital Signs Date Time Temp Pulse Resp B/P (MAP) Pulse Ox O2 Delivery O2 Flow Rate FiO2 08/13/19 08:00 Room Air 08/13/19 05:26 36.4 73 16 111/74 (86) 95 Capillary Refill : Less Than 3 Seconds General Appearance: No Apparent Distress, WD/WN, Chronically ill HEENT: PERRL/EOMI, Normal ENT Inspection, Pharynx Normal, Moist Mucous Membranes Neck: Full Range of Motion, Normal Inspection, Non Tender, Supple Respiratory: Chest Non Tender, Lungs Clear, Normal Breath Sounds, No Accessory Muscle Use, No Respiratory Distress Cardiovascular: Regular Rate, Rhythm, No Gallop, No Murmur Gastrointestinal: Normal Bowel Sounds, No Organomegaly, No Pulsatile Mass, Non Tender, Soft Back: Normal Inspection, No CVA Tenderness, Decreased Range of Motion Extremity: Normal Capillary Refill, Normal Inspection, Normal Range of Motion, Non Tender, No Calf Tenderness, No Pedal Edema Neurologic/Psychiatric: Alert, Oriented x3, Normal Mood/Affect, binder selector II-XII Norm as Tested, Motor Weakness Skin: Normal Color, Warm/Dry Lymphatic: No Adenopathy Results/Procedures Lab Patient resulted labs reviewed. FIM Transfers Therapy Code Descriptions/Definitions Functional [place] Measure: 0=Not Assessed/NA 4=Minimal Assistance 1=Total Assistance 5=Supervision or Setup 2=Maximal Assistance 6=Modified [place] 3=Moderate Assistance 7=Complete IndependenceSCALE: Activities may be completed with or without assistive devices. 8-Npppcubyen-oekpdtz completes the activity by him/herself with no assistance from a helper. 5-Set-up or Clean-up Assistance-helper sets up or cleans up; patient completes activity. [place] assists only prior to or following the activity. 4-Supervision or Touching Assistance-helper provides verbal cues and/or touching/steadying and/or contact guard assistance as patient completes activity. Assistance may be provided throughout the activity or intermittently. 3-Partial/Moderate Assistance-helper does LESS THAN HALF the effort. [place] lifts, holds or supports trunk or limbs, but provides less than half the effort. 2-Substantial/Maximal Assistance-helper does MORE THAN HALF the effort. [place] lifts or holds trunk or limbs and provides more than half the effort. 4-Udtimmstv-rnajsz does ALL the effort. Patient does none of the effort to complete the activity. Or, the assistance of 2 or more helpers is required for the patient to complete the activity. If activity was not attempted, code reason: 7-Patient Refused. 9-Not Applicable-not attempted and the patient did not perform the activity before the current illness, exacerbation or injury. 10-Not Attempted due to Environmental Limitations-(lack of equipment, weather restraints, etc.). 88-Not Attempted due to Medical Conditions or Safety Concerns. Transfers (B, C, W/C) (FIM): 3 Roll Left to Right (QC): 4 Sit to Lying (QC): 4 Sit to Stand (QC): 2 (modA to maxA for sit to stands and for blocking knees to stand) Chair/Wbe-qm-Lzmkx Xfer(QC): 4 (sliding board transfer with skilled verb inst and close SBA) Bed to/from Chair: 4 Car Transfer (QC): 1 Gait Training Does the Patient Walk?: No and Walking Goal NOT indicated Distance: 5'x3 Walk 10 feet (QC): 5 Walk 50 ft with 2 Turns(QC): 5 Walk 150 ft (QC): 5 Walking 10ft/uneven surface-QC: 88 Gait Persons Needed: 1 Gait Assistive Device: Parallel Bars Wheelchair Training Does the Pt Use a Wheelchair?: Yes Wheelchair (FIM): 1 Wheelchair Distance: 1=up to 49 ft Distance: within room and bathroom, tight space training Wheel 50 ft with 2 turns (QC): 4 Wheel 150 ft (QC): 4 Type of Wheelchair: Manual ADL-Treatment Eating (QC): 6 Groomin (Pt brushed hair at bed level, he was able to gather hair brush from side table and complete task without assistance.) Oral Hygiene (QC): 6 Bathing Location: L Arm, R Arm, Chest, Abdomen, Perineal Area Shower/Bathe Self (QC): 4 (Pt. requires cues to sequence steps. Min assist to adequately was rear janna area while seated.) Upper Body Dressing (QC): 5 Lower Body Dressing (QC): 3 On/Off Footwear (QC): 2 (OT educated pt on using sock aid to don socks. OT assisted pt with doffing socks, & demo'd use of sock aid. Pt able to don sock on left foot using sock aid, required assistance with right foot secondary to dressing on heel of foot) Toileting Hygiene (QC): 5 (Pt used urinal at bed level to void. Pt was able to obtain urinal from edge of bed and place onto bedside table once he had voided. OT assisted pt with emptying contents of urinal.) Toilet Transfer (QC): 1 (Pt able to perform SB transfer from EOB to drop arm commode with assist for hand placement and assist scooting across SB. Pt required x2 assist for squat pivot transfer from commode to recliner.) Assessment/Plan Assessment and Plan Assess & Plan/Chief Complaint Assessment: Spinal cord trauma from severe stenosis Debility CAD Delirium now improved s/p UTI completed treatment but now symptoms again and confirmed another UTI so place on Bactrim and sensitive to Bactrim per UCx sensitivities Constipation now resolved 07/28/19 HTN HLP Cognitive deficit SLUMS Depression w/tearfulness Bladder incontinence improved on Dr Yasmeen cash Bowel incontinence Plan: Monitor bowel and bladder incontinence IRF protocol Increase strength with IRF protocols BM regimen to hold due to loose stools Started antidepressant Monitor BP s/p DC steroids Patient appears to be in need of nursing facility skilled care at discharge Dr Arana consultation is appreciated UCx noted (1) Spinal cord injury (2) Generalized Weakness (3) Cervical spinal stenosis Status: Acute (4) Neuroforaminal stenosis of spine Status: Acute (5) Essential (primary) hypertension Status: Chronic (6) Lumbar spinal stenosis Status: Acute (7) Slipped intervertebral disc Status: Acute (8) Delirium Status: Acute (9) Incidental durotomy Status: Acute (10) CAD (coronary artery disease) Status: Chronic YANETH REEDER DO Aug 13, 2019 12:29
[2019-08-13 18:00] VITALS: BP 101/69
[2019-08-13] MEDS: TERAZOSIN 5 MG (HYTRIN) CAPSULE PO SCH (20:12)
[2019-08-13] MEDS: risperiDONE 0.25 MG (RisperDAL) TAB PO SCH (20:12)
[2019-08-13] MEDS: DONEPEZIL 10 MG (ARICEPT) TAB PO SCH (20:12)
[2019-08-14] MEDS: HYDROcodone/APAP 5 MG/325 MG (LORTAB) TAB PO PRN (03:11)
[2019-08-14 05:12] VITALS: BP 107/71
[2019-08-14] MEDS: TRIM/SULFAMETH 160/800 (SEPTRA DS) TAB PO SCH (06:18)
[2019-08-14] MEDS: PANTOPRAZOLE 40 MG (PROTONIX) TAB PO SCH (06:18)
[2019-08-14] MEDS: LACTOBACILLUS ACIDOPHILUS (PROBIOTIC) CAPSULE PO SCH ×3 (06:18→17:31)
[2019-08-14] MEDS: DOCUSATE CALCIUM 240 MG (SURFAK) CAP PO SCH ×2 (09:23→20:18)
[2019-08-14] MEDS: ASPIRIN E.C. 81 MG (ECOTRIN) TAB PO SCH (09:23)
[2019-08-14] MEDS: LORATADINE (CLARITIN) 10 MG TAB PO SCH (09:23)
[2019-08-14] MEDS: TOLTERODINE LA 4 MG (DETROL) CAP PO SCH ×2 (09:23→20:21)
[2019-08-14] MEDS: DULoxetine 30 MG (CYMBALTA) CAP PO SCH (09:23)
[2019-08-14] MEDS: LOSARTAN 25 MG (COZAAR) TAB PO SCH (09:24)
[2019-08-14] MEDS: POLYETHYLENE GLYCOL 17 GM (MIRALAX) PACK PO SCH ×2 (09:24→20:29)
[2019-08-14] MEDS: CLOPIDOGREL 75 MG (PLAVIX) TABLET PO SCH (09:24)
[2019-08-14] MEDS: CARVEDILOL 3.125 MG (COREG) TABLET PO SCH ×2 (09:24→20:29)
[2019-08-14 09:25] VITALS: BP 106/68
[2019-08-14] MEDS: BISACODYL 10 MG SUPP (DULCOLAX) PR SCH ×2 (09:25→20:29)
[2019-08-14] MEDS: SENNA W/DOCUSATE (SENOKOT S) TABLET PO SCH ×2 (09:25→20:19)
[2019-08-14] MEDS: BACITRACIN OINTMENT 28 GM TUBE TOP SCH ×2 (09:25→20:22)
--- NOTE | 2019-08-14 13:19 | PM&R Progress Note ---
Subjective HPI/CC On Admission Date Seen by Provider: Aug 14, 2019 Time Seen by Provider: 12:45 CC: Cervical spine injury non-traumatic HPI: This is a 78yoWM who presented to the Hospital with significant compromise in function, was found to have significant cervical spine stenosis causing generalized weakness globally, that was complicated with delirium post- operatively in addition to a UTI diagnosis. Pt previously doctored with Dr. Tyler Danielson and did not see a regular senior unix administrator although he has had Bypass surgery and has known CAD. Pt was doing well but had a lengthy acute care course and is in need of significant rehabilitation, prior to returning home. He seems to be very depressed, very tearful when I meet him and reports that he is about to turn 79 next month. I have tried to reassure him and I have put in a behavioral health consult in for him because of obvious tearfulness and overwhelmed feeling and loss of independence that he will need to be aggressively treated for in order to return home safely. Previously he used a walker for the past 6 months prior to admission, had lumbar spine surgery then was discharged home and home PT Collette Ramos evaluated the Pt to have such se higinio weakness that he was total care so he was sent to the ER for workup and from there thing progressed into cervical spine MRI showing severe stenosis and Dr. Bhatt performed surgery with good results but was so severe it was a dural tear during the surgery and he has become quite debilitated. He is urinating well, hasn't had a BM in several days so will need to work on that when he is admitted into the inpatient rehab unit. Overall he will be aggressively treated in order to re-gain his independence in order to return home. Subjective/Events-last exam Pt doing pretty well No modifiable factors in order to improve his status Back incision is still draining but it is improved No fever noted Incontinence is much improved since Dr. Arana started him on Detrol twice daily and he is very pleased about that Bowels are moving regularly Bactroban is being placed on the incision Bactrim completed for UTI Will have a shower today Check meds and labs Reviewed therapy notes Conferred with lubricator granulator of Systems General: Fatigue Musculoskeletal: back pain Neurological: Weakness, Numbness, Incoordination Objective Exam Vital Signs Vital Signs Date Time Temp Pulse Resp B/P (MAP) Pulse Ox O2 Delivery O2 Flow Rate FiO2 08/14/19 09:25 81 106/68 (81) 08/14/19 08:58 95 Room Air 08/14/19 05:12 36.4 18 Capillary Refill : Less Than 3 Seconds General Appearance: No Apparent Distress, WD/WN, Chronically ill HEENT: PERRL/EOMI, Normal ENT Inspection, Pharynx Normal, Moist Mucous Membranes Neck: Full Range of Motion, Normal Inspection, Non Tender, Supple Respiratory: Chest Non Tender, Lungs Clear, Normal Breath Sounds, No Accessory Muscle Use, No Respiratory Distress Cardiovascular: Regular Rate, Rhythm, No Gallop, No Murmur Gastrointestinal: Normal Bowel Sounds, No Organomegaly, No Pulsatile Mass, Non Tender, Soft Back: Normal Inspection, No CVA Tenderness, Decreased Range of Motion Extremity: Normal Capillary Refill, Normal Inspection, Normal Range of Motion, Non Tender, No Calf Tenderness, No Pedal Edema Neurologic/Psychiatric: Alert, Oriented x3, Normal Mood/Affect, infertility medical assistant II-XII Norm as Tested, Motor Weakness Skin: Normal Color, Warm/Dry Lymphatic: No Adenopathy Results/Procedures Lab Patient resulted labs reviewed. FIM Transfers Therapy Code Descriptions/Definitions Functional [place] Measure: 0=Not Assessed/NA 4=Minimal Assistance 1=Total Assistance 5=Supervision or Setup 2=Maximal Assistance 6=Modified [place] 3=Moderate Assistance 7=Complete IndependenceSCALE: Activities may be completed with or without assistive devices. 1-Ejoehajdyp-dirfnst completes the activity by him/herself with no assistance from a helper. 5-Set-up or Clean-up Assistance-helper sets up or cleans up; patient completes activity. [place] assists only prior to or following the activity. 4-Supervision or Touching Assistance-helper provides verbal cues and/or touching/steadying and/or contact guard assistance as patient completes activity. Assistance may be provided throughout the activity or intermittently. 3-Partial/Moderate Assistance-helper does LESS THAN HALF the effort. [place] lifts, holds or supports trunk or limbs, but provides less than half the effort. 2-Substantial/Maximal Assistance-helper does MORE THAN HALF the effort. [place] lifts or holds trunk or limbs and provides more than half the effort. 6-Vwkrxexym-tgnbae does ALL the effort. Patient does none of the effort to complete the activity. Or, the assistance of 2 or more helpers is required for the patient to complete the activity. If activity was not attempted, code reason: 7-Patient Refused. 9-Not Applicable-not attempted and the patient did not perform the activity before the current illness, exacerbation or injury. 10-Not Attempted due to Environmental Limitations-(lack of equipment, weather restraints, etc.). 88-Not Attempted due to Medical Conditions or Safety Concerns. Transfers (B, C, W/C) (FIM): 3 Roll Left to Right (QC): 4 Sit to Lying (QC): 4 Sit to Stand (QC): 2 (modA to maxA for sit to stands and for blocking knees to stand) Chair/Jma-ix-Ahcpn Xfer(QC): 4 (sliding board transfer with skilled verb inst and close SBA) Bed to/from Chair: 4 Car Transfer (QC): 1 Gait Training Does the Patient Walk?: No and Walking Goal NOT indicated Distance: 5'x3 Walk 10 feet (QC): 5 Walk 50 ft with 2 Turns(QC): 5 Walk 150 ft (QC): 5 Walking 10ft/uneven surface-QC: 88 Gait Persons Needed: 1 Gait Assistive Device: Parallel Bars Wheelchair Training Does the Pt Use a Wheelchair?: Yes Wheelchair (FIM): 1 Wheelchair Distance: 1=up to 49 ft Distance: within room and bathroom, tight space training Wheel 50 ft with 2 turns (QC): 4 Wheel 150 ft (QC): 4 Type of Wheelchair: Manual ADL-Treatment Eating (QC): 6 Groomin (Pt brushed hair at bed level, he was able to gather hair brush from side table and complete task without assistance.) Oral Hygiene (QC): 6 Bathing Location: L Arm, R Arm, Chest, Abdomen, Perineal Area Shower/Bathe Self (QC): 4 (Pt. requires cues to sequence steps. Min assist to adequately was rear janna area while seated.) Upper Body Dressing (QC): 5 Lower Body Dressing (QC): 3 On/Off Footwear (QC): 2 (OT educated pt on using sock aid to don socks. OT assisted pt with doffing socks, & demo'd use of sock aid. Pt able to don sock on left foot using sock aid, required assistance with right foot secondary to dressing on heel of foot) Toileting Hygiene (QC): 5 (Pt used urinal at bed level to void. Pt was able to obtain urinal from edge of bed and place onto bedside table once he had voided. OT assisted pt with emptying contents of urinal.) Toilet Transfer (QC): 1 (Pt able to perform SB transfer from EOB to drop arm commode with assist for hand placement and assist scooting across SB. Pt required x2 assist for squat pivot transfer from commode to recliner.) Assessment/Plan Assessment and Plan Assess & Plan/Chief Complaint Assessment: Spinal cord trauma from severe stenosis Debility CAD Delirium now resolved s/p UTI completed treatment recurrent type Constipation now resolved 07/28/19 HTN HLP Cognitive deficit SLUMS Depression w/tearfulness Bladder incontinence improved on Dr Yasmeen cash Bowel incontinence Plan: Monitor bowel and bladder incontinence IRF protocol Increase strength with IRF protocols BM regimen to hold due to loose stools Started antidepressant Monitor BP Patient appears to be in need of nursing facility skilled care at discharge Dr Arana consultation is appreciated Check labs in am (1) Spinal cord injury (2) Generalized Weakness (3) Cervical spinal stenosis Status: Acute (4) Neuroforaminal stenosis of spine Status: Acute (5) Essential (primary) hypertension Status: Chronic (6) Lumbar spinal stenosis Status: Acute (7) Slipped intervertebral disc Status: Acute (8) Delirium Status: Acute (9) Incidental durotomy Status: Acute (10) CAD (coronary artery disease) Status: Chronic YANETH REEDER DO Aug 14, 2019 13:19
--- NOTE | 2019-08-14 14:31 | NUR ---
Dressing change to back incision after shower. Bacitracin ointment applied. Covered with ABD and secured with paper tape. Minimal amount of serous drainage noted. New [place] dressings applied to bilateral heels as preventative measure. No breakdown noted on heels.
[2019-08-14 17:55] VITALS: BP 117/71
[2019-08-14] MEDS: DONEPEZIL 10 MG (ARICEPT) TAB PO SCH (20:18)
[2019-08-14] MEDS: risperiDONE 0.25 MG (RisperDAL) TAB PO SCH (20:21)
[2019-08-14] MEDS: TERAZOSIN 5 MG (HYTRIN) CAPSULE PO SCH (20:29)
[2019-08-15 05:00] VITALS: BP 105/74
[2019-08-15] MEDS: PANTOPRAZOLE 40 MG (PROTONIX) TAB PO SCH (05:57)
[2019-08-15] MEDS: LACTOBACILLUS ACIDOPHILUS (PROBIOTIC) CAPSULE PO SCH ×3 (05:58→17:38)
[2019-08-15 06:58] LABS: BASOPHILS # (AUTO) 0.1 10^3/uL (0.0-0.1); BASOPHILS % (AUTO) 1 % (0-10); EOSINOPHILS # (AUTO) 0.2 10^3/uL (0.0-0.3); EOSINOPHILS % (AUTO) 3 % (0-10); HEMATOCRIT 40 % (40-54); HEMOGLOBIN 13.3 G/DL (13.3-17.7); LYMPHOCYTES # (AUTO) 1.2 X 10^3 (1.0-4.0); LYMPHOCYTES % (AUTO) 21 % (12-44); MEAN CORPUSCULAR HEMOGLOBIN 30 PG (25-34); MEAN CORPUSCULAR HGB CONC 33 G/DL (32-36); MEAN CORPUSCULAR VOLUME 92 FL (80-99); MEAN PLATELET VOLUME 9.5 FL (7.4-10.4); MONOCYTES # (AUTO) 0.5 X 10^3 (0.0-1.0); MONOCYTES % (AUTO) 10 % (0-12); NEUTROPHILS # (AUTO) 3.6 X 10^3 (1.8-7.8); NEUTROPHILS % (AUTO) 65 % (42-75); PLATELET COUNT 327 10^3/uL (130-400); RED CELL DISTRIBUTION WIDTH 13.4 % (10.0-14.5); WHITE BLOOD COUNT 5.6 10^3/uL (4.3-11.0)
[2019-08-15 07:24] LABS: ALANINE AMINOTRANSFERASE 18 U/L (0-55); ALBUMIN 3.4 GM/DL (3.2-4.5); ALKALINE PHOSPHATASE 118 U/L (40-136); BILIRUBIN,TOTAL 0.4 MG/DL (0.1-1.0); BUN/CREATININE RATIO 17; CALCIUM 8.6 MG/DL (8.5-10.1); CARBON DIOXIDE 19 MMOL/L (21-32); CHLORIDE 105 MMOL/L (98-107); CREATININE SERUM 1.07 MG/DL (0.60-1.30); GFR ESTIMATED > 60; GLUCOSE 86 MG/DL (70-105); POTASSIUM 4.1 MMOL/L (3.6-5.0); SODIUM 136 MMOL/L (135-145)
[2019-08-15] MEDS: HYDROcodone/APAP 5 MG/325 MG (LORTAB) TAB PO PRN ×3 (07:25→20:57)
--- NOTE | 2019-08-15 07:49 | Occupational Ther Daily Note ---
OT Current Status-Daily Note Subjective Pt alert, lying in bed. Pt states "I just can't do anything, I give up." CHEN encourages pt to try and staff is here to help him get through. Mental Status/Objective Patient Orientation: Person, Place, Time, Situation ADL-Treatment Pt stated that he had a shower on Thursday, agreed to sponge bath. Pt required encouragement to complete tasks on own. Pt refused to move LE's, stating that he could not do it. Mod A for supine to EOB using HOB fully raised and bed rails then physical assist to complete movement. Pt did bathe upper body and dress self after set up. Pt then required assist to go from EOB to supine then assist x2 to scoot up in bed. Assist to roll side to side to complete lower body bathing and dressing, max A. Assist to set up oral care and meal. After therapy, pt lying in bed with call light/phone in reach. All needs met in room. Therapy Code Descriptions/Definitions Functional [place] Measure: 0=Not Assessed/NA 4=Minimal Assistance 1=Total Assistance 5=Supervision or Setup 2=Maximal Assistance 6=Modified [place] 3=Moderate Assistance 7=Complete IndependenceSCALE: Activities may be completed with or without assistive devices. 8-Lftghwkkuy-pvidewk completes the activity by him/herself with no assistance from a helper. 5-Set-up or Clean-up Assistance-helper sets up or cleans up; patient completes activity. [place] assists only prior to or following the activity. 4-Supervision or Touching Assistance-helper provides verbal cues and/or touching/steadying and/or contact guard assistance as patient completes a ctivity. Assistance may be provided throughout the activity or intermittently. 3-Partial/Moderate Assistance-helper does LESS THAN HALF the effort. [place] lifts, holds or supports trunk or limbs, but provides less than half the effort. 2-Substantial/Maximal Assistance-helper does MORE THAN HALF the effort. [place] lifts or holds trunk or limbs and provides more than half the effort. 5-Tjzttrdrz-yjtuzw does ALL the effort. Patient does none of the effort to complete the activity. Or, the assistance of 2 or more helpers is required for the patient to complete the activity. If activity was not attempted, code reason: 7-Patient Refused. 9-Not Applicable-not attempted and the patient did not perform the activity before the current illness, exacerbation or injury. 10-Not Attempted due to Environmental Limitations-(lack of equipment, weather restraints, etc.). 88-Not Attempted due to Medical Conditions or Safety Concerns. Eating (QC): 5 Oral Hygiene (QC): 5 Upper Body Dressing (QC): 5 Lower Body Dressing (QC): 2 OT Short Term Goals Short Term Goals Lower Body Dressing(FIM): 3 Toilet/Commode Transfer(FIM): 3 Additional Short Term Goals: 1-Demonstrate ADL Tasks, 2-Verbalize Understanding, 3-ImproveStrength/Jesus Alberto 1=Demonstrate adherence to instructed precautions during ADL tasks. 2=Patient will verbalize/demonstrate understanding of assistive devices/modifications for ADL. 3=Patient will improve strength/tolerance for activity to enable patient to perform ADL's. OT Usp Goals Usp Goals Eating (QC): 6 Oral Hygiene (QC): 6 Shower/Bathe Self (QC): 6 Upper Body Dressing (QC): 6 Lower Body Dressing (QC): 5 On/Off Footwear (QC): 6 Toileting Hygiene (QC): 5 Toilet/Commode Transfer (QC): 5 Additional Goals: 1-Demonstrate ADL Tasks, 2-Verbalize Understanding, 3- ImproveStrength/Jesus Alberto 1=Demonstrate adherence to instructed precautions during ADL tasks. 2=Patient will verbalize/demonstrate understanding of assistive devices/modifications for ADL. 3=Patient will improve strength/tolerance for activity to enable patient to perform ADL's. OT Education/Plan Problem List/Assessment Assessment: Decreased Activ Tolerance, Impaired Cognition, Impaired Coordination, Impaired Funct Balance, Impaired Self-Care Skills Discharge Recommendations Plan/Recommendations: Continue POC Treatment Plan/Plan of Care Patient would benefit from OT for education, treatment and training to promote independence in ADL's, mobility, safety and/or upper extremity function for ADL's. Plan of Care: ADL Retraining, Caregiver Training, Concurrent Therapy, Functional Mobility, Group Exercise/Act as Ind, UE Funct Exercise/Act Treatment Duration: Jul 27, 2019 Frequency: At least 5 of 7 days/Wk (IRF) Estimated Hrs Per Day: 1.5 hours per day Agreement: Yes Rehab Potential: Fair Time/GCodes Start Time: 07:00 Stop Time: 08:00 Total Time Billed (hr/min): 60 Billed Treatment Time 1 visit-ADL 4 (60 min) SNEHA GARCIA Aug 15, 2019 07:49
[2019-08-15] MEDS: CYCLOBENZAPRINE 10 MG (FLEXERIL) TAB PO PRN ×2 (08:17→22:43)
--- NOTE | 2019-08-15 08:20 | Cardiology Progress Note ---
Subjective Date Seen by Provider: Aug 15, 2019 Time Seen by Provider: 08:18 Subjective/Events-last exam Patient is sitting up in bed, continues to complain of back pain. Denies any chest pain or dyspnea Review of Systems General: No Chills, No Night Sweats, No Fatigue, No Malaise, No Appetite, No Other HEENT: No Head Aches, No Visual Changes, No Eye Pain, No Ear Pain, No Dysphasia, No Sinus Congestion, No Post Nasal Drip, No Sore Throat, No Other Pulmonary: No Dyspnea, No Cough, No Pleuritic Chest Pain, No Other Cardiovascular: No: Chest Pain, Palpitations, Orthopnea, Paroxysmal Noc. Dyspnea, Edema, Lt Headedness, Other Objective-Cardiology Exam Last Set of Vital Signs Vital Signs 08/15/19 08/15/19 05:00 07:54 Temp 36.4 Pulse 82 Resp 18 B/P (MAP) 105/74 (84) Pulse Ox 95 O2 Delivery Room Air Capillary Refill : Less Than 3 Seconds I&O Intake and Output 08/15/19 00:00 Intake Total 1000 ml Output Total 750 ml Balance 250 ml Intake Oral 1000 ml Output Urine Total 750 ml # Voids 7 # Bowel Movements 1 General: Alert, Oriented X3 HEENT: Atraumatic, EOMI Neck: Supple, No JVD, No Thyromegaly Lungs: Clear to Auscultation, Normal Air Movement Heart: Regular Rate, Normal S1, Normal S2, No Murmurs Abdomen: Normal Bowel Sounds, Soft, No Tenderness, No Hepatosplenomegaly, No Masses Extremities: No Clubbing, No Tenderness/Swelling Skin: No Rashes, No Breakdown, No Significant Lesion Neuro: Normal Speech, Normal Tone, Sensation Intact Psych/Mental Status: Mental Status NL Results Lab Laboratory Tests 08/15/19 05:56 A/P-Cardiology Admission Diagnosis Spinal Stenosis Chest pain CAD HTN Assessment/Plan Spinal stenosis, slipped disc, status post L2-3 laminectomy done on July 20, 2019, back pain continues to improve. Chest pain, chronic stable angina, no further episodes of chest pain reported. Continue to monitor Coronary artery disease, history of CABG, multiple intervention the past, recent cardiac catheterization with drug-eluting stent deployment to the vein graft to the diagonal artery, had a patent GRACE to LAD with patent stent beyond the anastomosis in the LAD, small vessel disease otherwise done by Dr. Perez in [facility], currently back on Plavix. Continue to monitor Hypertension, borderline hypotensive. Continue on losartan and coreg with parameters. Sinus bradycardia. Secondary to medication, continue to monitor heart rate Hyperlipidemia, maintained on statin Generalized weakness, lower and upper extremity weakness, cervical spinal stenosis with slipped disc, s/p L 2-[address] Bhatt earlier this morning. Dementia Patient was seen and evaluated with Jill, examination performed, management plan was discussed, agree with the current scribed note, I made few changes to the note using Italic font Patient is having active back pain, discussed using Flexeril regularly Has been borderline hypotensive, I will stop Coreg and try metoprolol once a day in the morning and evaluate tolerance and response. On examination lungs were clear to auscultation bilaterally, heart is regular rate and rhythm Clinical Quality Measures DVT/VTE Risk/Contraindication: Risk Factor Score Per Nursin RFS Level Per Nursing on Admit: 4+=Very High JILL FULLER Aug 15, 2019 8:20 am CHRISTIANO DAVIS MD Aug 15, 2019 9:55 am
[2019-08-15] MEDS: BISACODYL 10 MG SUPP (DULCOLAX) PR SCH ×2 (08:44→21:00)
[2019-08-15] MEDS: SENNA W/DOCUSATE (SENOKOT S) TABLET PO SCH ×2 (08:44→20:56)
[2019-08-15] MEDS: DOCUSATE CALCIUM 240 MG (SURFAK) CAP PO SCH ×2 (08:44→20:56)
[2019-08-15] MEDS: POLYETHYLENE GLYCOL 17 GM (MIRALAX) PACK PO SCH ×2 (08:44→21:00)
[2019-08-15] MEDS: DULoxetine 30 MG (CYMBALTA) CAP PO SCH (08:55)
[2019-08-15] MEDS: LOSARTAN 25 MG (COZAAR) TAB PO SCH (08:55)
[2019-08-15] MEDS: ASPIRIN E.C. 81 MG (ECOTRIN) TAB PO SCH (08:55)
[2019-08-15] MEDS: CLOPIDOGREL 75 MG (PLAVIX) TABLET PO SCH (08:55)
[2019-08-15] MEDS: CARVEDILOL 3.125 MG (COREG) TABLET PO SCH (08:55)
[2019-08-15] MEDS: TOLTERODINE LA 4 MG (DETROL) CAP PO SCH ×2 (08:55→20:55)
[2019-08-15] MEDS: LORATADINE (CLARITIN) 10 MG TAB PO SCH (08:55)
[2019-08-15] MEDS: BACITRACIN OINTMENT 28 GM TUBE TOP SCH ×2 (08:56→21:04)
--- NOTE | 2019-08-15 09:36 | Progress Note - Urology ---
Progress Note-Urology Progress Notes/Assess & Plan Progress/Assessment & Plan DOING BETTER. TOLERATES MEDS WELL Final Diagnosis BPH AND OAB MU LOCKETT MD Aug 15, 2019 09:36
--- NOTE | 2019-08-15 09:54 | Physical Therapy Daily Note ---
PT Daily Note-Current Subjective Pt in bed pre-tx. Pt declined leaving the bed today. This PT was able to get pt to work on bed exercise and bed mobility. Pt reports 10/10 pain in his back today where it has been. Appearance Pt in bed post-tx propped to L side. Pt with nurse call light, room phone, tray table in reach with all needs met. Mental Status Patient Orientation: Person, Place, Situation Transfers SCALE: Activities may be completed with or without assistive devices. 4-Yvhxqybqiu-zvnlkak completes the activity by him/herself with no assistance from a helper. 5-Set-up or Clean-up Assistance-helper sets up or cleans up; patient completes activity. [place] assists only prior to or following the activity. 4-Supervision or Touching Assistance-helper provides verbal cues and/or touching/steadying and/or contact guard assistance as patient completes activity. Assistance may be provided throughout the activity or intermittently. 3-Partial/Moderate Assistance-helper does LESS THAN HALF the effort. [place] lifts, holds or supports trunk or limbs, but provides less than half the effort. 2-Substantial/Maximal Assistance-helper does MORE THAN HALF the effort. [place] lifts or holds trunk or limbs and provides more than half the effort. 4-Kkebzewwc-yhfjcn does ALL the effort. Patient does none of the effort to complete the activity. Or, the assistance of 2 or more helpers is required for the patient to complete the activity. If activity was not attempted, code reason: 7-Patient Refused. 9-Not Applicable-not attempted and the patient did not perform the activity before the current illness, exacerbation or injury. 10-Not Attempted due to Environmental Limitations-(lack of equipment, weather restraints, etc.). 88-Not Attempted due to Medical Conditions or Safety Concerns. Roll Left to Right (QC): 4 Pt bent knees with modAx1 and used hands to pull himself up in bed. Pt rolled to each side x3. Weight Bearing Right Lower Extremity: Right Weight Bearing/Tolerated Left Lower Extremity: Left Weight Bearing/Tolerated Wheelchair Training Does the Pt Use a Wheelchair?: No Exercises Supine Ex: Ankle pumps, Glut sets, Heel Slides, Short Arc Quads, Straight leg raise, Hip abd/add Supine Reps: 15 (4 times B/L) Treatments Pt performed B/L LE strengthening/endurance ex, and bed mobility this date. Assessment Current Status: Poor Progress Pt refused to leave the bed this date. Pt R LE continues to show increased weakness compared to L LE. Pt with noted LE fatigue following this session. PT Short Term Goals Short Term Goals Time Frame: Aug 02, 2019 Wheelchair Distance: within room and bathroom, tight space training PT Intermediate Goals Intermediate Goals PT Income Tax Adjuster Goals Time Frame: Aug 16, 2019 Sit to Lying (QC): 3 (Olu) Lying-Sitting on Side/Bed(QC): 3 (Kofi) Sit to Stand (QC): 1 Roll Left to Right (QC): 3 (Olu) Chair/Zht-hj-Gsisp Xfer(QC): 3 (Olu) Car Transfer (QC): 1 Walk 10 feet (QC): 88 Walk 10ft-Uneven Surface(QC): 88 Walk 50ft with 2 Turns (QC): 88 Walk 150 ft (QC): 88 Wheel 50 feet with 2 turns (QC: 5 1 Step (curb) (QC): 88 4 Steps (QC): 88 12 Steps (QC): 88 Picking up an Object (QC): 88 PT Plan Problem List Problem List: Activity Tolerance, Functional Strength, Safety, Balance, Gait, Transfer, Bed Mobility, ROM Treatment/Plan Treatment Plan: Continue Plan of Care Treatment Plan: Bed Mobility, Concurrent Therapy, Education, Functional Activity Jesus Alberto, Functional Strength, Group Therapy, Gait, Safety, Therapeutic Exercise, Transfers Treatment Duration: Aug 16, 2019 Frequency: At least 5 of 7 days/Wk (IRF) Estimated Hrs Per Day: 1.5 hours per day Patient and/or Family Agrees t: Yes Safety Risks/Education Patient Education: Correct Positioning, Safety Issues Teaching Recipient: Patient Teaching Methods: Demonstration, Discussion Response to Teaching: Return Demonstration, Reinforcement Needed Time/GCodes Time In: 900 Time Out: 1000 Total Billed Treatment Time: 60 Total Billed Treatment 1 visit 50' EX 10' ALANA CASTILLO PT Aug 15, 2019 09:54
--- NOTE | 2019-08-15 10:18 | PM&R Progress Note ---
Subjective HPI/CC On Admission Date Seen by Provider: Aug 15, 2019 Time Seen by Provider: 08:30 CC: Cervical spine injury non-traumatic HPI: This is a 78yoWM who presented to the Hospital with significant compromise in function, was found to have significant cervical spine stenosis causing generalized weakness globally, that was complicated with delirium post- operatively in addition to a UTI diagnosis. Pt previously doctored with Dr. Tyler Danielson and did not see a regular shop tailor apprentice although he has had Bypass surgery and has known CAD. Pt was doing well but had a lengthy acute care course and is in need of significant rehabilitation, prior to returning home. He seems to be very depressed, very tearful when I meet him and reports that he is about to turn 79 next month. I have tried to reassure him and I have put in a behavioral health consult in for him because of obvious tearfulness and overwhelmed feeling and loss of independence that he will need to be aggressively treated for in order to return home safely. Previously he used a walker for the past 6 months prior to admission, had lumbar spine surgery then was discharged home and home PT Collette Ramos evaluated the Pt to have such severe weakness that he was total care so he was sent to the ER for workup and from there thing progressed into cervical spine MRI showing severe stenosis and Dr. Bhatt performed surgery with good results but was so severe it was a dural tear during the surgery and he has become quite debilitated. He is urinating well, hasn't had a BM in several days so will need to work on that when he is admitted into the inpatient rehab unit. Overall he will be aggressively treated in order to re-gain his independence in order to return home. Subjective/Events-last exam Labs are normal today Tearful at times and asked for the pile header to come visit him Increased back pain but there appears to be no easy solution there Incision appears to be good I did visualize that today during dressing change Pt will need nursing facility at [place] Check meds and labs Reviewed therapy notes Conferred with mini lab operator of Systems General: Fatigue Musculoskeletal: back pain Neurological: Confusion Objective Exam Vital Signs Vital Signs Date Time Temp Pulse Resp B/P (MAP) Pulse Ox O2 Delivery O2 Flow Rate FiO2 08/15/19 19:00 94 Room Air 08/15/19 18:00 36.5 82 16 121/87 (98) Capillary Refill : Less Than 3 Seconds General Appearance: No Apparent Distress, WD/WN, Chronically ill HEENT: PERRL/EOMI, Normal ENT Inspection, Pharynx Normal, Moist Mucous Membranes Neck: Full Range of Motion, Normal Inspection, Non Tender, Supple Respiratory: Chest Non Tender, Lungs Clear, Normal Breath Sounds, No Accessory Muscle Use, No Respiratory Distress Cardiovascular: Regular Rate, Rhythm, No Gallop, No Murmur Gastrointestinal: Normal Bowel Sounds, No Organomegaly, No Pulsatile Mass, Non Tender, Soft Back: Normal Inspection, No CVA Tenderness, Decreased Range of Motion Extremity: Normal Capillary Refill, Normal Inspection, Normal Range of Motion, Non Tender, No Calf Tenderness, No Pedal Edema Neurologic/Psychiatric: Alert, Oriented x3, Normal Mood/Affect, order packer or packager II-XII Norm as Tested, Motor Weakness Skin: Normal Color, Warm/Dry Lymphatic: No Adenopathy Results/Procedures Lab Laboratory Tests 08/15/19 05:56 Patient resulted labs reviewed. FIM Transfers Therapy Code Descriptions/Definitions Functional [place] Measure: 0=Not Assessed/NA 4=Minimal Assistance 1=Total Assistance 5=Supervision or Setup 2=Maximal Assistance 6=Modified [place] 3=Moderate Assistance 7=Complete IndependenceSCALE: Activities may be completed with or without assistive devices. 5-Qgndlhrorx-wlqqpih completes the activity by him/herself with no assistance from a helper. 5-Set-up or Clean-up Assistance-helper sets up or cleans up; patient completes activity. [place] assists only prior to or following the activity. 4-Supervision or Touching Assistance-helper provides verbal cues and/or touching/steadying and/or contact guard assistance as patient completes activity. Assistance may be provided throughout the activity or intermittently. 3-Partial/Moderate Assistance-helper does LESS THAN HALF the effort. [place] lifts, holds or supports trunk or limbs, but provides less than half the effort. 2-Substantial/Maximal Assistance-helper does MORE THAN HALF the effort. [place] lifts or holds trunk or limbs and provides more than half the effort. 2-Mugpgssvo-rqdmjy does ALL the effort. Patient does none of the effort to complete the activity. Or, the assistance of 2 or more helpers is required for the patient to complete the activity. If activity was not attempted, code reason: 7-Patient Refused. 9-Not Applicable-not attempted and the patient did not perform the activity before the current illness, exacerbation or injury. 10-Not Attempted due to Environmental Limitations-(lack of equipment, weather restraints, etc.). 88-Not Attempted due to Medical Conditions or Safety Concerns. Transfers (B, C, W/C) (FIM): 3 Roll Left to Right (QC): 4 Sit to Lying (QC): 4 Sit to Stand (QC): 2 (modA to maxA for sit to stands and for blocking knees to stand) Chair/Cma-bc-Ttdwg Xfer(QC): 4 (sliding board transfer with skilled verb inst and close SBA) Bed to/from Chair: 4 Car Transfer (QC): 1 Gait Training Does the Patient Walk?: No and Walking Goal NOT indicated Distance: 5'x3 Walk 10 feet (QC): 5 Walk 50 ft with 2 Turns(QC): 5 Walk 150 ft (QC): 5 Walking 10ft/uneven surface-QC: 88 Gait Persons Needed: 1 Gait Assistive Device: Parallel Bars Wheelchair Training Does the Pt Use a Wheelchair?: No Wheelchair (FIM): 1 Wheelchair Distance: 1=up to 49 ft Distance: within room and bathroom, tight space training Wheel 50 ft with 2 turns (QC): 4 Wheel 150 ft (QC): 4 Type of Wheelchair: Manual ADL-Treatment Eating (QC): 6 Groomin (Pt brushed hair at bed level, he was able to gather hair brush from side table and complete task without assistance.) Oral Hygiene (QC): 6 Bathing Location: L Arm, R Arm, Chest, Abdomen, Perineal Area Shower/Bathe Self (QC): 4 (Pt. requires cues to sequence steps. Min assist to adequately was rear janna area while seated.) Upper Body Dressing (QC): 5 Lower Body Dressing (QC): 3 On/Off Footwear (QC): 2 (OT educated pt on using sock aid to don socks. OT assisted pt with doffing socks, & demo'd use of sock aid. Pt able to don sock on left foot using sock aid, required assistance with right foot secondary to dressing on heel of foot) Toileting Hygiene (QC): 5 (Pt used urinal at bed level to void. Pt was able to obtain urinal from edge of bed and place onto bedside table once he had voided. OT assisted pt with emptying contents of urinal.) Toilet Transfer (QC): 1 (Pt able to perform SB transfer from EOB to drop arm commode with assist for hand placement and assist scooting across SB. Pt required x2 assist for squat pivot transfer from commode to recliner.) Assessment/Plan Assessment and Plan Assess & Plan/Chief Complaint Assessment: Spinal cord trauma from severe stenosis Debility CAD Delirium now resolved s/p UTI completed treatment recurrent type Constipation now resolved 07/28/19 HTN HLP Cognitive deficit SLUMS Depression w/tearfulness Bladder incontinence improved on Dr Yasmeen cash Bowel incontinence Plan: Monitor bowel and bladder incontinence IRF protocol Increase strength with IRF protocols BM regimen to hold due to loose stools Started antidepressant Monitor BP Patient appears to be in need of nursing facility skilled care at discharge Dr Arana consultation is appreciated NH? (1) Spinal cord injury (2) Generalized Weakness (3) Cervical spinal stenosis Status: Acute (4) Neuroforaminal stenosis of spine Status: Acute (5) Essential (primary) hypertension Status: Chronic (6) Lumbar spinal stenosis Status: Acute (7) Slipped intervertebral disc Status: Acute (8) Delirium Status: Acute (9) Incidental durotomy Status: Acute (10) CAD (coronary artery disease) Status: Chronic YANETH REEDER DO Aug 15, 2019 10:18
--- NOTE | 2019-08-15 11:00 | NUR ---
Referral: Pt expressed to USHA Torrez that he was in pain and felt like he wanted 'God to just take him.' Pt became tearful when he saw me and shared that he was doing well until today. I asked him what was different today, and he said his pain was much worse and he felt this was a setback. He also anticipates transferring to a fpc home for continued therapy, and described that anxious thoughts overwhelm him when his pain increases. I facilitated free expression of thoughts and feelings, provided a safe place for exploration of his fears and hopes, and encouraged reflection to inspire felt connection with his keli and sense of purpose. Following prayer together, the pt shared feeling increased assurance that God was with him in his struggles. Addendum: 08/16/19 at 0902 by HUMBERTO VAN PAST *USHA Camilo
--- NOTE | 2019-08-15 12:57 | Speech Therapy Daily Note ---
Speech Daily Progress Note Subjective Date Seen by Provider: Aug 15, 2019 Time Seen by Provider: 00:30 Patient was resting in his bed, stated he just does not feel good but doesn't know what is the matter. Objective Patient answered questions regarding other therapy, weekend and pain with 90% a ccuracy. He answered "I don't know" to the other questions presented. Assessment Assessment Current Status: Good Progress Treatment Plan Continue Plan of Care Speech Short Term Goals Short Term Goals Short Term Goals 1) Patient will complete memory tasks related to his daily needs at 90% or greater, independently. 2) Patient will complete problem solving tasks related to his daily needs at 90% or greater, independently. 3) Patient will complete safety awareness tasks related to his daily needs at 90% or greater, independently. Speech Rim Roller Setter Goals Rim Roller Setter Goals Patient will improve cognitive-communication necessary for safety and daily living tasks with minimal assist. Speech-Plan Patient/Family Goals Patient/Family Goals: Patient plans on moving in with his geronimo temporarily upon discharge. This will be determined prior to discharge. His progress has been slow with physical ability and he has so much pain he may require going to SNF. Treatment Plan Speech Therapy Treatment Plan: Continue Plan of Care Patient has made good progress with ST goals. Treatment Duration: Aug 19, 2019 Frequency: 5 times per week Estimated Hrs Per Day: .5 hour per day Rehab Potential: Fair Barriers to Learning: Patient has mild cognitive deficits still. Pt/Family Agrees to Plan: Yes Safety Risks/Education Teaching Recipient: Patient Teaching Methods: Demonstration, Discussion Response to Teaching: Verbalize Understanding, Return Demonstration Education Topics Provided: Continued communication of wants/needs, particularly related to his pain. Time Speech Therapy Time In: 11:30 Speech Therapy Time Out: 12:00 Total Billed Time: 30 Billed Treatment Time 1, PATRICIA Rae Aug 15, 2019 12:57
--- NOTE | 2019-08-15 13:52 | Occupational Ther Daily Note ---
OT Current Status-Daily Note Subjective Pt alert, lying in bed. Pt states that he feels better than this morning. Agrees to therapy. Mental Status/Objective Patient Orientation: Person, Place, Time, Situation ADL-Treatment Pt attempted to use urinal and spilled on pants and bed. Pt able to roll side to side with min A then max A to hike pants down over hips and take off brief. Pt able to cleanse janna area after set up. Max A to place brief and don pants. Pt able to pull self up in bed with head board. After therapy, pt lying in bed with call light/phone in reach. All needs met in room. Therapy Code Descriptions/Definitions Functional [place] Measure: 0=Not Assessed/NA 4=Minimal Assistance 1=Total Assistance 5=Supervision or Setup 2=Maximal Assistance 6=Modified [place] 3=Moderate Assistance 7=Complete IndependenceSCALE: Activities may be completed with or without assistive devices. 8-Xmexppaemd-hccqrmd completes the activity by him/herself with no assistance from a helper. 5-Set-up or Clean-up Assistance-helper sets up or cleans up; patient completes activity. [place] assists only prior to or following the activity. 4-Supervision or Touching Assistance-helper provides verbal cues and/or touching/steadying and/or contact guard assistance as patient completes activity. Assistance may be provided throughout the activity or intermittently. 3-Partial/Moderate Assistance-helper does LESS THAN HALF the effort. [place] lifts, holds or supports trunk or limbs, but provides less than half the effort. 2-Substantial/Maximal Assistance-helper does MORE THAN HALF the effort. [place] lifts or holds trunk or limbs and provides more than half the effort. 5-Uqvjrjrfu-xiffxo does ALL the effort. Patient does none of the effort to complete the activity. Or, the assistance of 2 or more helpers is required for the patient to complete the activity. If activity was not attempted, code reason: 7-Patient Refused. 9-Not Applicable-not attempted and the patient did not perform the activity before the current illness, exacerbation or injury. 10-Not Attempted due to Environmental Limitations-(lack of equipment, weather restraints, etc.). 88-Not Attempted due to Medical Conditions or Safety Concerns. Toileting Hygiene (QC): 2 OT Short Term Goals Short Term Goals Lower Body Dressing(FIM): 3 Toilet/Commode Transfer(FIM): 3 Additional Short Term Goals: 1-Demonstrate ADL Tasks, 2-Verbalize Understanding, 3-ImproveStrength/Jesus Alberto 1=Demonstrate adherence to instructed precautions during ADL tasks. 2=Patient will verbalize/demonstrate understanding of assistive devices/modifications for ADL. 3=Patient will improve strength/tolerance for activity to enable patient to perform ADL's. OT Longterm Goals Longterm Goals Eating (QC): 6 Oral Hygiene (QC): 6 Shower/Bathe Self (QC): 6 Upper Body Dressing (QC): 6 Lower Body Dressing (QC): 5 On/Off Footwear (QC): 6 Toileting Hygiene (QC): 5 Toilet/Commode Transfer (QC): 5 Additional Goals: 1-Demonstrate ADL Tasks, 2-Verbalize Understanding, 3- ImproveStrength/Jesus Alberto 1=Demonstrate adherence to instructed precautions during ADL tasks. 2=Patient will verbalize/demonstrate understanding of assistive dev ices/modifications for ADL. 3=Patient will improve strength/tolerance for activity to enable patient to perform ADL's. OT Education/Plan Problem List/Assessment Assessment: Decreased Activ Tolerance, Impaired Self-Care Skills Discharge Recommendations Plan/Recommendations: Continue POC Treatment Plan/Plan of Care Patient would benefit from OT for education, treatment and training to promote independence in ADL's, mobility, safety and/or upper extremity function for ADL's. Plan of Care: ADL Retraining, Caregiver Training, Concurrent Therapy, Functional Mobility, Group Exercise/Act as Ind, UE Funct Exercise/Act Treatment Duration: Jul 27, 2019 Frequency: At least 5 of 7 days/Wk (IRF) Estimated Hrs Per Day: 1.5 hours per day Agreement: Yes Rehab Potential: Fair Time/GCodes Start Time: 13:00 Stop Time: 13:15 Total Time Billed (hr/min): 15 Billed Treatment Time 1 visit-ADL 1 (15 min) SNEHA GARCIA Aug 15, 2019 13:52
--- NOTE | 2019-08-15 13:59 | Physical Therapy Daily Note ---
PT Daily Note-Current Subjective Pt in bed pre-tx. Pt agrees to PT this afternoon. Pt reports pain is "starting to get better" today. Appearance Pt in bed post-tx. Pt with nurse call light, room phone, tray table in reach and all needs met. Mental Status Patient Orientation: Person, Place, Situation Transfers SCALE: Activities may be completed with or without assistive devices. 6-Nnyklfuwcz-eulvnba completes the activity by him/herself with no assistance from a helper. 5-Set-up or Clean-up Assistance-helper sets up or cleans up; patient completes activity. [place] assists only prior to or following the activity. 4-Supervision or Touching Assistance-helper provides verbal cues and/or touching/steadying and/or contact guard assistance as patient completes acti vity. Assistance may be provided throughout the activity or intermittently. 3-Partial/Moderate Assistance-helper does LESS THAN HALF the effort. [place] lifts, holds or supports trunk or limbs, but provides less than half the effort. 2-Substantial/Maximal Assistance-helper does MORE THAN HALF the effort. [place] lifts or holds trunk or limbs and provides more than half the effort. 2-Pwsuihuwj-lqepde does ALL the effort. Patient does none of the effort to complete the activity. Or, the assistance of 2 or more helpers is required for the patient to complete the activity. If activity was not attempted, code reason: 7-Patient Refused. 9-Not Applicable-not attempted and the patient did not perform the activity before the current illness, exacerbation or injury. 10-Not Attempted due to Environmental Limitations-(lack of equipment, weather restraints, etc.). 88-Not Attempted due to Medical Conditions or Safety Concerns. Roll Left to Right (QC): 4 (SBA) Sit to Lying (QC): 3 (mod for lifting LE's) Pt rolled B/L for fixing sheets and used B/L LE & B/L UE to scoot up in bed needing help only to bend the knees up. Weight Bearing Right Lower Extremity: Right Weight Bearing/Tolerated Left Lower Extremity: Left Weight Bearing/Tolerated Balance Special Test Comments Pt maintained seated balance through all exercise this date with B/L arms at sides on bead for support. Exercises Supine Ex: Ankle pumps, Glut sets Supine Reps: 15 Seated Therapy Exercises: Ankle pumps, Long arc quads, Hip flexion, Hip abd/add Seated Reps: 15 (2 sets) Treatments Pt performed LE strengthening, transfer training, dynamic seated balance, and education this date. Assessment Current Status: Fair Progress Pt required increased assist this date for sit<->supine. Pt continues to improve bed mobility with scooting up in bed. Pt was more motivated to work this afternoon and seems to be in better spirits after speaking with Commodity Director. PT Short Term Goals Short Term Goals Time Frame: Aug 02, 2019 Wheelchair Distance: within room and bathroom, tight space training PT Half-Way Goals Half-Way Goals PT Half-Way Goals Time Frame: Aug 16, 2019 Sit to Lying (QC): 3 (Olu) Lying-Sitting on Side/Bed(QC): 3 (Kofi) Sit to Stand (QC): 1 Roll Left to Right (QC): 3 (Olu) Chair/Ttq-px-Rezdb Xfer(QC): 3 (Olu) Car Transfer (QC): 1 Walk 10 feet (QC): 88 Walk 10ft-Uneven Surface(QC): 88 Walk 50ft with 2 Turns (QC): 88 Walk 150 ft (QC): 88 Wheel 50 feet with 2 turns (QC: 5 1 Step (curb) (QC): 88 4 Steps (QC): 88 12 Steps (QC): 88 Picking up an Object (QC): 88 PT Plan Problem List Problem List: Activity Tolerance, Functional Strength, Safety, Balance, Gait, Transfer, Bed Mobility Treatment/Plan Treatment Plan: Continue Plan of Care Treatment Plan: Bed Mobility, Concurrent Therapy, Education, Functional Activity Jesus Alberto, Functional Strength, Group Therapy, Gait, Safety, Therapeutic Exercise, Transfers Treatment Duration: Aug 16, 2019 Frequency: At least 5 of 7 days/Wk (IRF) Estimated Hrs Per Day: 1.5 hours per day Patient and/or Family Agrees t: Yes Safety Risks/Education Patient Education: Transfer Techniques, Correct Positioning, Safety Issues Teaching Recipient: Patient Teaching Methods: Demonstration, Discussion Response to Teaching: Return Demonstration, Reinforcement Needed Time/GCodes Time In: 1314 Time Out: 1330 Total Billed Treatment Time: 16 Total Billed Treatment 1 visit 16' EX SNEHA ODONNELL PT Aug 15, 2019 13:59
[2019-08-15 18:00] VITALS: BP 121/87
--- NOTE | 2019-08-15 19:05 | NUR ---
bedside report received from JATINDER KRER, assume care of pt
--- NOTE | 2019-08-15 20:30 | NUR ---
c/o back pain level 8/10 on numeric scale, Lortab 5 1 tab po given
[2019-08-15] MEDS: DONEPEZIL 10 MG (ARICEPT) TAB PO SCH (20:55)
[2019-08-15] MEDS: risperiDONE 0.25 MG (RisperDAL) TAB PO SCH (20:56)
[2019-08-15] MEDS: TERAZOSIN 5 MG (HYTRIN) CAPSULE PO SCH (20:56)
--- NOTE | 2019-08-15 21:15 | NUR ---
resting quietly in bed, pain level 0/10 on flacc scale
--- NOTE | 2019-08-15 22:43 | NUR ---
requesting muscle relaxer Flexeril 10mg po given
[2019-08-16 05:45] VITALS: BP 105/69
[2019-08-16] MEDS: LACTOBACILLUS ACIDOPHILUS (PROBIOTIC) CAPSULE PO SCH ×3 (06:55→16:41)
[2019-08-16] MEDS: PANTOPRAZOLE 40 MG (PROTONIX) TAB PO SCH (06:55)
--- NOTE | 2019-08-16 07:36 | NUR ---
bedside report given to LETTY KERR
--- NOTE | 2019-08-16 08:06 | Cardiology Progress Note ---
Subjective Date Seen by Provider: Aug 16, 2019 Time Seen by Provider: 08:05 Subjective/Events-last exam Patient is sitting up in bed, states back pain improved this morning. Denies any chest pain or dizziness. Review of Systems General: No Chills, No Night Sweats, No Fatigue, No Malaise, No Appetite, No Other HEENT: No Head Aches, No Visual Changes, No Eye Pain, No Ear Pain, No Dysphasia, No Sinus Congestion, No Post Nasal Drip, No Sore Throat, No Other Pulmonary: No Dyspnea, No Cough, No Pleuritic Chest Pain, No Other Cardiovascular: No: Chest Pain, Palpitations, Orthopnea, Paroxysmal Noc. Dyspnea, Edema, Lt Headedness, Other Objective-Cardiology Exam Last Set of Vital Signs Vital Signs 08/16/19 08/16/19 05:45 08:00 Temp 36.1 Pulse 90 Resp 18 B/P (MAP) 105/69 (81) Pulse Ox 96 O2 Delivery Room Air Capillary Refill : Less Than 3 Seconds I&O Intake and Output 08/16/19 00:00 Intake Total 600 ml Output Total 700 ml Balance -100 ml Intake Oral 600 ml Output Urine Total 700 ml # Voids 1 # Bowel Movements 1 General: Alert, Oriented X3 HEENT: Atraumatic, EOMI Neck: Supple, No JVD, No Thyromegaly Lungs: Clear to Auscultation, Normal Air Movement Heart: Regular Rate, Normal S1, Normal S2, No Murmurs Abdomen: Normal Bowel Sounds, Soft, No Tenderness, No Hepatosplenomegaly, No Masses Extremities: No Clubbing, No Tenderness/Swelling Skin: No Rashes, No Breakdown, No Significant Lesion Neuro: Normal Speech, Normal Tone, Sensation Intact Psych/Mental Status: Mental Status NL A/P-Cardiology Admission Diagnosis Spinal Stenosis Chest pain CAD HTN Assessment/Plan Spinal stenosis, slipped disc, status post L2-3 laminectomy done on July 20, 2019, back pain continues to improve. Chest pain, chronic stable angina, no further episodes of chest pain reported. Continue to monitor Coronary artery disease, history of CABG, multiple intervention the past, recent cardiac catheterization with drug-eluting stent deployment to the vein graft to the diagonal artery, had a patent GRACE to LAD with patent stent beyond the anastomosis in the LAD, small vessel disease otherwise done by Dr. Perez in [facility], currently back on Plavix. Continue to monitor Hypertension, borderline hypotensive. Continue on losartan, coreg discontinued and started on Toprol XL, continue to monitor. Sinus bradycardia. Secondary to medication, continue to monitor heart rate Hyperlipidemia, maintained on statin Generalized weakness, lower and upper extremity weakness, cervical spinal stenosis with slipped disc, s/p L 2-[address] Bhatt earlier this morning. Dementia Patient was seen and evaluated with Jill, examination performed, management plan was discussed, agree with the current scribed note, I made few changes to the note using Italic font Patient is feeling better, reporting improvement in his symptoms Continue on current medication and continue to monitor, no changes are recommended Clinical Quality Measures DVT/VTE Risk/Contraindication: Risk Factor Score Per Nursin RFS Level Per Nursing on Admit: 4+=Very High JILL FULLER Aug 16, 2019 08:06 CHRISTIANO DAVIS MD Aug 16, 2019 15:37
--- NOTE | 2019-08-16 08:21 | PM&R Progress Note ---
Subjective HPI/CC On Admission Date Seen by Provider: Aug 16, 2019 Time Seen by Provider: 08:30 CC: Cervical spine injury non-traumatic HPI: This is a 78yoWM who presented to the Hospital with significant compromise in function, was found to have significant cervical spine stenosis causing generalized weakness globally, that was complicated with delirium post- operatively in addition to a UTI diagnosis. Pt previously doctored with Dr. Tyler Danielson and did not see a regular online marketing coordinator although he has had Bypass surgery and has known CAD. Pt was doing well but had a lengthy acute care course and is in need of significant rehabilitation, prior to returning home. He seems to be very depressed, very tearful when I meet him and reports that he is about to turn 79 next month. I have tried to reassure him and I have put in a behavioral health consult in for him because of obvious tearfulness and overwhelmed feeling and loss of independence that he will need to be aggressively treated for in order to return home safely. Previously he used a walker for the past 6 months prior to admission, had lumbar spine surgery then was discharged home and home PT Collette Ramos evaluated the Pt to have such se higinio weakness that he was total care so he was sent to the ER for workup and from there thing progressed into cervical spine MRI showing severe stenosis and Dr. Bhatt performed surgery with good results but was so severe it was a dural tear during the surgery and he has become quite debilitated. He is urinating well, hasn't had a BM in several days so will need to work on that when he is admitted into the inpatient rehab unit. Overall he will be aggressively treated in order to re-gain his independence in order to return home. Subjective/Events-last exam Pt having a better day. Back pain is much improved. Slept very well last night. Incision is stable, still healing. [facility] will be required. No urinary incontinence reported. Bowels are moving well. Check meds and labs Reviewed therapy notes Conferred with earth science teacher of Systems Musculoskeletal: back pain Neurological: Weakness, Numbness, Incoordination Objective Exam Vital Signs Vital Signs Date Time Temp Pulse Resp B/P (MAP) Pulse Ox O2 Delivery O2 Flow Rate FiO2 08/16/19 18:00 37.3 82 18 103/66 (78) 97 Room Air Capillary Refill : Less Than 3 Seconds General Appearance: No Apparent Distress, WD/WN, Chronically ill HEENT: PERRL/EOMI, Normal ENT Inspection, Pharynx Normal, Moist Mucous Membranes Neck: Full Range of Motion, Normal Inspection, Non Tender, Supple Respiratory: Chest Non Tender, Lungs Clear, Normal Breath Sounds, No Accessory Muscle Use, No Respiratory Distress Cardiovascular: Regular Rate, Rhythm, No Gallop, No Murmur Gastrointestinal: Normal Bowel Sounds, No Organomegaly, No Pulsatile Mass, Non Tender, Soft Back: Normal Inspection, No CVA Tenderness, Decreased Range of Motion Extremity: Normal Capillary Refill, Normal Inspection, Normal Range of Motion, Non Tender, No Calf Tenderness, No Pedal Edema Neurologic/Psychiatric: Alert, Oriented x3, Normal Mood/Affect, in flight crew member II-XII Norm as Tested, Motor Weakness Skin: Normal Color, Warm/Dry Lymphatic: No Adenopathy Results/Procedures Lab Patient resulted labs reviewed. FIM Transfers Therapy Code Descriptions/Definitions Functional [place] Measure: 0=Not Assessed/NA 4=Minimal Assistance 1=Total Assistance 5=Supervision or Setup 2=Maximal Assistance 6=Modified [place] 3=Moderate Assistance 7=Complete IndependenceSCALE: Activities may be completed with or without assistive devices. 5-Uaezgltjyo-ejyrjkr completes the activity by him/herself with no assistance from a helper. 5-Set-up or Clean-up Assistance-helper sets up or cleans up; patient completes activity. [place] assists only prior to or following the activity. 4-Supervision or Touching Assistance-helper provides verbal cues and/or touching/steadying and/or contact guard assistance as patient completes activity. Assistance may be provided throughout the activity or intermittently. 3-Partial/Moderate Assistance-helper does LESS THAN HALF the effort. [place] lifts, holds or supports trunk or limbs, but provides less than half the effort. 2-Substantial/Maximal Assistance-helper does MORE THAN HALF the effort. [place] lifts or holds trunk or limbs and provides more than half the effort. 2-Isolachgg-mmeefr does ALL the effort. Patient does none of the effort to complete the activity. Or, the assistance of 2 or more helpers is required for the patient to complete the activity. If activity was not attempted, code reason: 7-Patient Refused. 9-Not Applicable-not attempted and the patient did not perform the activity before the current illness, exacerbation or injury. 10-Not Attempted due to Environmental Limitations-(lack of equipment, weather restraints, etc.). 88-Not Attempted due to Medical Conditions or Safety Concerns. Transfers (B, C, W/C) (FIM): 3 Roll Left to Right (QC): 4 (SBA) Sit to Lying (QC): 3 (mod for lifting LE's) Sit to Stand (QC): 2 (modA to maxA for sit to stands and for blocking knees to stand) Chair/Dhd-vw-Vhcxb Xfer(QC): 4 (sliding board transfer with skilled verb inst and close SBA) Bed to/from Chair: 4 Car Transfer (QC): 1 Gait Training Does the Patient Walk?: No and Walking Goal NOT indicated Distance: 5'x3 Walk 10 feet (QC): 5 Walk 50 ft with 2 Turns(QC): 5 Walk 150 ft (QC): 5 Walking 10ft/uneven surface-QC: 88 Gait Persons Needed: 1 Gait Assistive Device: Parallel Bars Wheelchair Training Does the Pt Use a Wheelchair?: No Wheelchair (FIM): 1 Wheelchair Distance: 1=up to 49 ft Distance: within room and bathroom, tight space training Wheel 50 ft with 2 turns (QC): 4 Wheel 150 ft (QC): 4 Type of Wheelchair: Manual ADL-Treatment Eating (QC): 5 Groomin (Pt brushed hair at bed level, he was able to gather hair brush from side table and complete task without assistance.) Oral Hygiene (QC): 5 Bathing Location: L Arm, R Arm, Chest, Abdomen, Perineal Area Shower/Bathe Self (QC): 4 (Pt. requires cues to sequence steps. Min assist to adequately was rear janna area while seated.) Upper Body Dressing (QC): 5 Lower Body Dressing (QC): 2 On/Off Footwear (QC): 2 (OT educated pt on using sock aid to don socks. OT assisted pt with doffing socks, & demo'd use of sock aid. Pt able to don sock on left foot using sock aid, required assistance with right foot secondary to kemar ssing on heel of foot) Toileting Hygiene (QC): 2 Toilet Transfer (QC): 1 (Pt able to perform SB transfer from EOB to drop arm commode with assist for hand placement and assist scooting across SB. Pt required x2 assist for squat pivot transfer from commode to recliner.) Assessment/Plan Assessment and Plan Assess & Plan/Chief Complaint Assessment: Spinal cord trauma from severe stenosis Debility CAD Delirium now resolved s/p UTI completed treatment recurrent type Constipation now resolved 07/28/19 HTN HLP Cognitive deficit SLUMS Depression w/tearfulness Bladder incontinence improved on Dr Yasmeen cash Bowel incontinence Plan: Monitor bowel and bladder incontinence IRF protocol Increase strength with IRF protocols BM regimen to hold due to loose stools Started antidepressant Monitor BP Patient appears to be in need of nursing facility skilled care at discharge Dr Arana consultation is appreciated NH? Will discuss in team conference Wed (1) Spinal cord injury (2) Generalized Weakness (3) Cervical spinal stenosis Status: Acute (4) Neuroforaminal stenosis of spine Status: Acute (5) Essential (primary) hypertension Status: Chronic (6) Lumbar spinal stenosis Status: Acute (7) Slipped intervertebral disc Status: Acute (8) Delirium Status: Acute (9) Incidental durotomy Status: Acute (10) CAD (coronary artery disease) Status: Chronic YANETH REEDER DO Aug 16, 2019 08:21
[2019-08-16] MEDS: DOCUSATE CALCIUM 240 MG (SURFAK) CAP PO SCH ×2 (08:48→20:35)
[2019-08-16] MEDS: LORATADINE (CLARITIN) 10 MG TAB PO SCH (08:48)
[2019-08-16] MEDS: ASPIRIN E.C. 81 MG (ECOTRIN) TAB PO SCH (08:48)
[2019-08-16] MEDS: TOLTERODINE LA 4 MG (DETROL) CAP PO SCH ×2 (08:48→20:35)
[2019-08-16] MEDS: DULoxetine 30 MG (CYMBALTA) CAP PO SCH (08:48)
[2019-08-16] MEDS: CLOPIDOGREL 75 MG (PLAVIX) TABLET PO SCH (08:48)
[2019-08-16] MEDS: LOSARTAN 25 MG (COZAAR) TAB PO SCH (08:49)
[2019-08-16] MEDS: HYDROcodone/APAP 5 MG/325 MG (LORTAB) TAB PO PRN ×2 (08:49→16:42)
[2019-08-16] MEDS: SENNA W/DOCUSATE (SENOKOT S) TABLET PO SCH ×2 (08:50→20:35)
[2019-08-16] MEDS: POLYETHYLENE GLYCOL 17 GM (MIRALAX) PACK PO SCH ×2 (08:50→20:53)
[2019-08-16] MEDS: BISACODYL 10 MG SUPP (DULCOLAX) PR SCH ×2 (08:51→20:53)
[2019-08-16] MEDS: BACITRACIN OINTMENT 28 GM TUBE TOP SCH ×2 (08:51→20:53)
--- NOTE | 2019-08-16 09:25 | Occupational Ther Daily Note ---
OT Current Status-Daily Note Subjective Pt in bed, agrees to treatment. Pt states he slept well last night and is feeling better today. Reports 8/10 back pain, RN present and provided pain medication. ADL-Treatment Pt declined shower, but would like sponge bath today. Supine to sit with minimal assistance for trunk, skilled cues for technique. Pt completed sponge bath while seated EOB. Upper body bathing completed with SBA. Pt able to wash bilateral upp er legs and janna area. Uses long handled sponge to wash lower legs and feet. UE dressing with set up. Pt returned to supine for LE dressing. Assist to thread bilateral LE into Depends and pant legs. Pt able to roll left and right and pull pants up over hips. Pt donned socks with SBA while seated EOB. Transfer EOB to w/c with min assist using sliding board. Pt fatigues quickly with activity and requires rest breaks and increased time for mobility and functional tasks. Pt performed w/c mobility to therapy gym using bilateral UE. Arm bike x5 minutes to increase overall strength and activity tolerance needed for functional task completion. Pt performed task with slow pace, required rest break after completion. Pt returned to bed, transferred to EOB with min assist using sliding board. Sit to supine with min assist. Pt resting in bed with needs met after session. Therapy Code Descriptions/Definitions Functional [place] Measure: 0=Not Assessed/NA 4=Minimal Assistance 1=Total Assistance 5=Supervision or Setup 2=Maximal Assistance 6=Modified [place] 3=Moderate Assistance 7=Complete IndependenceSCALE: Activities may be completed with or without assistive devices. 1-Hkzyvdxygj-nwflkan completes the activity by him/herself with no assistance from a helper. 5-Set-up or Clean-up Assistance-helper sets up or cleans up; patient completes activity. [place] assists only prior to or following the activity. 4-Supervision or Touching Assistance-helper provides verbal cues and/or touching/steadying and/or contact guard assistance as patient completes activity. Assistance may be provided throughout the activity or intermittently. 3-Partial/Moderate Assistance-helper does LESS THAN HALF the effort. [place] lifts, holds or supports trunk or limbs, but provides less than half the effort. 2-Substantial/Maximal Assistance-helper does MORE THAN HALF the effort. [place] lifts or holds trunk or limbs and provides more than half the effort. 3-Cjgfuxqeo-otvqhe does ALL the effort. Patient does none of the effort to complete the activity. Or, the assistance of 2 or more helpers is required for the patient to complete the activity. If activity was not attempted, code reason: 7-Patient Refused. 9-Not Applicable-not attempted and the patient did not perform the activity before the current illness, exacerbation or injury. 10-Not Attempted due to Environmental Limitations-(lack of equipment, weather restraints, etc.). 88-Not Attempted due to Medical Conditions or Safety Concerns. Shower/Bathe Self (QC): 3 Upper Body Dressing (QC): 5 Lower Body Dressing (QC): 2 OT Short Term Goals Short Term Goals Lower Body Dressing(FIM): 3 Toilet/Commode Transfer(FIM): 3 Additional Short Term Goals: 1-Demonstrate ADL Tasks, 2-Verbalize Understanding, 3-ImproveStrength/Jesus Alberto 1=Demonstrate adherence to instructed precautions during ADL tasks. 2=Patient will verbalize/demonstrate understanding of assistive devices/modific ations for ADL. 3=Patient will improve strength/tolerance for activity to enable patient to perform ADL's. OT Network Security Consultant Goals Group Home Goals Eating (QC): 6 Oral Hygiene (QC): 6 Shower/Bathe Self (QC): 6 Upper Body Dressing (QC): 6 Lower Body Dressing (QC): 5 On/Off Footwear (QC): 6 Toileting Hygiene (QC): 5 Toilet/Commode Transfer (QC): 5 Additional Goals: 1-Demonstrate ADL Tasks, 2-Verbalize Understanding, 3-Impr oveStrength/Jesus Alberto 1=Demonstrate adherence to instructed precautions during ADL tasks. 2=Patient will verbalize/demonstrate understanding of assistive devices/modifications for ADL. 3=Patient will improve strength/tolerance for activity to enable patient to perform ADL's. OT Education/Plan Discharge Recommendations Plan/Recommendations: Continue POC Treatment Plan/Plan of Care Patient would benefit from OT for education, treatment and training to promote independence in ADL's, mobility, safety and/or upper extremity function for ADL's. Plan of Care: ADL Retraining, Caregiver Training, Concurrent Therapy, Functional Mobility, Group Exercise/Act as Ind, UE Funct Exercise/Act Treatment Duration: Jul 27, 2019 Frequency: At least 5 of 7 days/Wk (IRF) Estimated Hrs Per Day: 1.5 hours per day Agreement: Yes Rehab Potential: Fair Time/GCodes Start Time: 08:00 Stop Time: 09:15 Total Time Billed (hr/min): 75 Billed Treatment Time 1 visit, ADLx4(65minutes), EX(10minutes) LISANDRO STONE OT Aug 16, 2019 09:25
--- NOTE | 2019-08-16 09:50 | Progress Note - Urology ---
Progress Note-Urology Progress Notes/Assess & Plan Progress/Assessment & Plan CONTINUES WELL SOUSA. KEEP SAME Final Diagnosis BPH AND OAB MU LOCKETT MD Aug 16, 2019 09:50
--- NOTE | 2019-08-16 10:55 | Physical Therapy Daily Note ---
PT Daily Note-Current Subjective Pt in bed pre-tx. Pt agrees to PT today. Pt is in better spirits today and reports decreased pain. Appearance Pt in bed post-tx with call light, room phone, tray table, and all needs met at this time. Pt had skin tear on back that was bleeding. RN aware. Mental Status Patient Orientation: Person, Time, Situation Transfers SCALE: Activities may be completed with or without assistive devices. 9-Aqagnxclfc-rynjmia completes the activity by him/herself with no assistance from a helper. 5-Set-up or Clean-up Assistance-helper sets up or cleans up; patient completes activity. [place] assists only prior to or following the activity. 4-Supervision or Touching Assistance-helper provides verbal cues and/or touching/steadying and/or contact guard assistance as patient completes activity. Assistance may be provided throughout the activity or intermittently. 3-Partial/Moderate Assistance-helper does LESS THAN HALF the effort. [place] lifts, holds or supports trunk or limbs, but provides less than half the effort. 2-Substantial/Maximal Assistance-helper does MORE THAN HALF the effort. [place] lifts or holds trunk or limbs and provides more than half the effort. 9-Dyahcifqg-qzoreh does ALL the effort. Patient does none of the effort to co mplete the activity. Or, the assistance of 2 or more helpers is required for the patient to complete the activity. If activity was not attempted, code reason: 7-Patient Refused. 9-Not Applicable-not attempted and the patient did not perform the activity before the current illness, exacerbation or injury. 10-Not Attempted due to Environmental Limitations-(lack of equipment, weather restraints, etc.). 88-Not Attempted due to Medical Conditions or Safety Concerns. Roll Left to Right (QC): 4 (SBA) Sit to Stand (QC): 3 (MinAx1) Pt continues to improve slide board transfers at this time requiring only Olu for slideboard positioning and safety. Weight Bearing Right Lower Extremity: Right Weight Bearing/Tolerated Left Lower Extremity: Left Weight Bearing/Tolerated Gait Training Walk 10 feet (QC): 2 (maxAx1 for staying up right and blocking knees.) Gait Assistive Device: FWW Pt walked entire // bars this date and was able to take 6 steps with FWW Wheelchair Training Does the Pt Use a Wheelchair?: Yes Wheelchair Distance: 5=884-62 ft Wheel 50 ft with 2 turns (QC): 4 Type of Wheelchair: Manual Exercises Seated Therapy Exercises: Ankle pumps, Sit to stand (x4), Hip flexion, Hip abd/add Seated Reps: 20 Treatments Pt performed bed mobility, transfer training, gait training, LE strengthening ex this date. Assessment Current Status: Good Progress Pt was able to ambulate the length of the // bars this date. Pt has improved sit to stand requiring only Olu this date. Pt was able to ambulate 8 steps with FWW once but LE's were fatigued following this session. PT Short Term Goals Short Term Goals Time Frame: Aug 02, 2019 Wheelchair Distance: within room and bathroom, tight space training PT Group Home Goals Group Home Goals PT Bridge Worker Apprentice Goals Time Frame: Aug 16, 2019 Sit to Lying (QC): 3 (Olu) Lying-Sitting on Side/Bed(QC): 3 (Kofi) Sit to Stand (QC): 1 Roll Left to Right (QC): 3 (Olu) Chair/Tvv-un-Nkwzn Xfer(QC): 3 (Olu) Car Transfer (QC): 1 Walk 10 feet (QC): 88 Walk 10ft-Uneven Surface(QC): 88 Walk 50ft with 2 Turns (QC): 88 Walk 150 ft (QC): 88 Wheel 50 feet with 2 turns (QC: 5 1 Step (curb) (QC): 88 4 Steps (QC): 88 12 Steps (QC): 88 Picking up an Object (QC): 88 PT Plan Problem List Problem List: Activity Tolerance, Functional Strength, Safety, Balance, Gait, Transfer, Bed Mobility, ROM Treatment/Plan Treatment Plan: Continue Plan of Care Treatment Plan: Bed Mobility, Concurrent Therapy, Education, Functional Activity Jesus Alberto, Functional Strength, Group Therapy, Gait, Safety, Therapeutic Exercise, Transfers Treatment Duration: Aug 16, 2019 Frequency: At least 5 of 7 days/Wk (IRF) Estimated Hrs Per Day: 1.5 hours per day Patient and/or Family Agrees t: Yes Safety Risks/Education Patient Education: Gait Training, Transfer Techniques, Correct Positioning, Safety Issues Teaching Recipient: Patient Teaching Methods: Demonstration, Discussion Response to Teaching: Reinforcement Needed Time/GCodes Time In: 1000 Time Out: 1100 Total Billed Treatment Time: 60 Total Billed Treatment 1 visit 10'EX 50' GT ALANA CISNEROS PT Aug 16, 2019 10:55
--- NOTE | 2019-08-16 13:24 | Physical Therapy Daily Note ---
PT Daily Note-Current Subjective Pt in bed pre-tx. Pt agrees to PT this afternoon. pt reports pain is very manageable this afternoon. Appearance Pt in bed post-tx. pt with nurse call light, room phone, tray table, and all needs met at this time. Mental Status Patient Orientation: Person, Place, Situation Transfers SCALE: Activities may be completed with or without assistive devices. 3-Zmneuuymjg-qjpviki completes the activity by him/herself with no assistance from a helper. 5-Set-up or Clean-up Assistance-helper sets up or cleans up; patient completes activity. [place] assists only prior to or following the activity. 4-Supervision or Touching Assistance-helper provides verbal cues and/or touching/steadying and/or contact guard assistance as patient completes activity. Assistance may be provided throughout the activity or intermittently. 3-Partial/Moderate Assistance-helper does LESS THAN HALF the effort. [place] lifts, holds or supports trunk or limbs, but provides less than half the effort. 2-Substantial/Maximal Assistance-helper does MORE THAN HALF the effort. [place] lifts or holds trunk or limbs and provides more than half the effort. 8-Eqtkhsrbw-ezwzuw does ALL the effort. Patient does none of the effort to complete the activity. Or, the assistance of 2 or more helpers is required for the patient to complete the activity. If activity was not attempted, code reason: 7-Patient Refused. 9-Not Applicable-not attempted and the patient did not perform the activity before the current illness, exacerbation or injury. 10-Not Attempted due to Environmental Limitations-(lack of equipment, weather restraints, etc.). 88-Not Attempted due to Medical Conditions or Safety Concerns. Roll Left to Right (QC): 4 (SBA) Sit to Lying (QC): 3 (Olu. Pt required for LE into bed secondary to LE fatigue.) Sit to Stand (QC): 2 (maxA. Pt fatigues requiring increasing assist with each stand) Weight Bearing Right Lower Extremity: Right Weight Bearing/Tolerated Left Lower Extremity: Left Weight Bearing/Tolerated Exercises Seated Therapy Exercises: Ankle pumps, Sit to stand (4 times standing until fatigue), Long arc quads, Hip flexion Seated Reps: 20 Treatments Pt performed LE strengthening ex, Transfer training, bed mobility, and education this date. Assessment Current Status: Fair Progress Pt with LE fatigue from previous session. Pt was able to get to standing with increased weight through UE this date. Pt continues to improve bed mobility especially with ability to pull himself up in bed and reposition. PT Short Term Goals Short Term Goals Time Frame: Aug 02, 2019 Wheelchair Distance: within room and bathroom, tight space training PT Dining Room Server Goals Dining Room Server Goals PT Dining Room Server Goals Time Frame: Aug 16, 2019 Sit to Lying (QC): 3 (Olu) Lying-Sitting on Side/Bed(QC): 3 (Kofi) Sit to Stand (QC): 1 Roll Left to Right (QC): 3 (Olu) Chair/Slr-zt-Wvljz Xfer(QC): 3 (Olu) Car Transfer (QC): 1 Walk 10 feet (QC): 88 Walk 10ft-Uneven Surface(QC): 88 Walk 50ft with 2 Turns (QC): 88 Walk 150 ft (QC): 88 Wheel 50 feet with 2 turns (QC: 5 1 Step (curb) (QC): 88 4 Steps (QC): 88 12 Steps (QC): 88 Picking up an Object (QC): 88 PT Plan Problem List Problem List: Activity Tolerance, Functional Strength, Safety, Balance, Gait, Transfer, Bed Mobility, ROM Treatment/Plan Treatment Plan: Continue Plan of Care Treatment Plan: Bed Mobility, Concurrent Therapy, Education, Functional Activity Jesus Alberto, Functional Strength, Group Therapy, Gait, Safety, Therapeutic Exercise, Transfers Treatment Duration: Aug 16, 2019 Frequency: At least 5 of 7 days/Wk (IRF) Estimated Hrs Per Day: 1.5 hours per day Patient and/or Family Agrees t: Yes Safety Risks/Education Patient Education: Gait Training, Transfer Techniques, Correct Positioning, W/C Management, Safety Issues Teaching Recipient: Patient Teaching Methods: Demonstration, Discussion Response to Teaching: Verbalize Understanding, Return Demonstration, Reinforcement Needed Time/GCodes Time In: 1300 Time Out: 1315 Total Billed Treatment Time: 15 Total Billed Treatment 1 visit FA ALANA LOCK PT Aug 16, 2019 13:24
--- NOTE | 2019-08-16 14:26 | Speech Therapy Daily Note ---
Speech Daily Progress Note Subjective Date Seen by Provider: Aug 16, 2019 Time Seen by Provider: 00:30 Patient resting in bed watching television. Patient states he is feeling much better today. Objective Patient completed memory tasks related to his daily needs at 90% with 10% cues and/or repetitions. Assessment Assessment Current Status: Good Progress Treatment Plan Continue Plan of Care Speech Short Term Goals Short Term Goals Short Term Goals 1) Patient will complete memory tasks related to his daily needs at 90% or greater, independently. 2) Patient will complete problem solving tasks related to his daily needs at 90% or greater, independently. 3) Patient will complete safety awareness tasks related to his daily needs at 90% or greater, independently. Speech Catering And Events Manager Goals [facility] Goals Patient will improve cognitive-communication necessary for safety and daily living tasks with minimal assist. Speech-Plan Patient/Family Goals Patient/Family Goals: Patient's place of living is yet to be determined prior to discharge. Treatment Plan Speech Therapy Treatment Plan: Continue Plan of Care Patient is progressing toward meeting ST goals. Treatment Duration: Aug 19, 2019 Frequency: 5 times per week Estimated Hrs Per Day: .5 hour per day Rehab Potential: Fair Barriers to Learning: Patient has mild cognitive deficits Pt/Family Agrees to Plan: Yes Safety Risks/Education Teaching Recipient: Patient Teaching Methods: Demonstration, Discussion Response to Teaching: Verbalize Understanding, Return Demonstration Education Topics Provided: Continued safety and communication of wants/needs Time Speech Therapy Time In: 13:30 Speech Therapy Time Out: 14:00 Total Billed Time: 30 Billed Treatment Time 1, PATRIICA Rae Aug 16, 2019 14:26
--- NOTE | 2019-08-16 14:58 | NUR ---
RD FOLLOW-UP PMHx: CAD; HTN; GA; chronic constipation PT INTERACTION: Pt was awake and pleasant for nutrition follow-up. Pt states current appetite is pretty good. Note average of 36% meals consumed x4d, per chart review. Pt states no issues with n/v since last assessment. Pt states constant bouts of constipation, with last BM 08/15. Note pt currently on bowel regimen of bisacodyl, docusate, senna, miralax. Note 16# wt loss x3w, per chart review. Given significant wt loss (8.2%) and pt's poor po intake, pt meets criteria for malnutrition, per ASPEN guidelines. ABNORMAL NUTRITION-RELATED LAB VALUES: Pro 6.0 (L) Est. kcal needs: 7937-9201 kcal (25-30 kcal/kg) Est. Pro needs: 97-113 g Pro (1.2-1.4 g Pro/kg) PES STATEMENT: Inadequate oral intake (NI-2.1) related to loss of appetite as evidenced by 36% of meals consumed x4d INTERVENTION: Continue with current diet order of regular diet. Add Ensure Enlive (vary) to meals BID. Provides 350 kcal and 20 g Pro per serving. Encouraged pt to eat when able. MONITOR/EVALUATE: PO Intake; Plan of Care; Hydration Status; Weight Status; Lab Values Efe Mendez, MS, RD, LD Ext. [phone]
[2019-08-16 18:00] VITALS: BP 103/66
[2019-08-16] MEDS: TERAZOSIN 5 MG (HYTRIN) CAPSULE PO SCH (20:35)
[2019-08-16] MEDS: risperiDONE 0.25 MG (RisperDAL) TAB PO SCH (20:35)
[2019-08-16] MEDS: DONEPEZIL 10 MG (ARICEPT) TAB PO SCH (20:36)
[2019-08-16] MEDS: CYCLOBENZAPRINE 10 MG (FLEXERIL) TAB PO PRN (20:36)
[2019-08-17] MEDS: HYDROcodone/APAP 5 MG/325 MG (LORTAB) TAB PO PRN ×3 (03:37→18:19)
[2019-08-17 05:01] VITALS: BP 98/61
[2019-08-17] MEDS: LACTOBACILLUS ACIDOPHILUS (PROBIOTIC) CAPSULE PO SCH ×3 (06:13→16:39)
[2019-08-17] MEDS: PANTOPRAZOLE 40 MG (PROTONIX) TAB PO SCH (06:13)
[2019-08-17 08:00] VITALS: BP 100/67
--- NOTE | 2019-08-17 08:29 | Cardiology Progress Note ---
Subjective Date Seen by Provider: Aug 17, 2019 Time Seen by Provider: 08:28 Subjective/Events-last exam Patient sitting up in wheelchair, doing ADLs. NO new complaints. Denies any chest pain or dyspnea. Review of Systems General: No Chills, No Night Sweats, No Fatigue, No Malaise, No Appetite, No Other HEENT: No Head Aches, No Visual Changes, No Eye Pain, No Ear Pain, No Dyspha renaldo, No Sinus Congestion, No Post Nasal Drip, No Sore Throat, No Other Pulmonary: No Dyspnea, No Cough, No Pleuritic Chest Pain, No Other Cardiovascular: No: Chest Pain, Palpitations, Orthopnea, Paroxysmal Noc. D yspnea, Edema, Lt Headedness, Other Objective-Cardiology Exam Last Set of Vital Signs Vital Signs 08/17/19 08/17/19 05:01 08:49 Temp 35.8 Pulse 78 Resp 18 B/P (MAP) 98/61 (73) Pulse Ox 96 O2 Delivery Room Air Capillary Refill : Less Than 3 Seconds I&O Intake and Output 08/17/19 00:00 Intake Total 800 ml Output Total 550 ml Balance 250 ml Intake Oral 800 ml Output Urine Total 550 ml # Voids 1 General: Alert, Oriented X3 HEENT: Atraumatic, EOMI Neck: Supple, No JVD, No Thyromegaly Lungs: Clear to Auscultation, Normal Air Movement Heart: Regular Rate, Normal S1, Normal S2, No Murmurs Abdomen: Normal Bowel Sounds, Soft, No Tenderness, No Hepatosplenomegaly, No Masses Extremities: No Clubbing, No Tenderness/Swelling Skin: No Rashes, No Breakdown, No Significant Lesion Neuro: Normal Speech, Normal Tone, Sensation Intact Psych/Mental Status: Mental Status NL A/P-Cardiology Admission Diagnosis Spinal Stenosis Chest pain CAD HTN Assessment/Plan Spinal stenosis, slipped disc, status post L2-3 laminectomy done on July 20, 2019, back pain continues to improve. Chest pain, chronic stable angina, no further episodes of chest pain reported. Continue to monitor Coronary artery disease, history of CABG, multiple intervention the past, recent cardiac catheterization with drug-eluting stent deployment to the vein graft to the diagonal artery, had a patent GRACE to LAD with patent stent beyond the anastomosis in the LAD, small vessel disease otherwise done by Dr. Perez in [facility], currently back on Plavix. Continue to monitor Hypertension, borderline hypotensive. Continue on losartan and Toprol XL with parameters. Sinus bradycardia. Secondary to medication, continue to monitor heart rate Hyperlipidemia, maintained on statin Generalized weakness, lower and upper extremity weakness, cervical spinal stenosis with slipped disc, s/p L 2-[address] Bhatt earlier this morning. Dementia Patient was seen and evaluated with Jill, examination performed, management plan was discussed, agree with the current scribed note, I made few changes to the note using Italic font I will discontinue metoprolol, continue low-dose losartan and monitor tolerance and response Clinical Quality Measures DVT/VTE Risk/Contraindication: Risk Factor Score Per Nursin RFS Level Per Nursing on Admit: 4+=Very High Supervisory-Addendum Brief Supervisory Addendum Participated in pt care: history, MDM, physical Personally performed: exam, history, MDM Care discussed with: JILL BRICE Aug 17, 2019 8:29 am CHRISTIANO DAVIS MD Aug 17, 2019 3:45 pm
--- NOTE | 2019-08-17 09:11 | Occupational Ther Daily Note ---
OT Current Status-Daily Note Subjective Pt in bed, agrees to therapy. Pt reports 5/10 back pain. ADL-Treatment Pt finishing breakfast when therapist arrives. Pt states he already had a sponge bath this morning and donned Depends and shirt with nursing assist. Pt supine to sit with SBA. Pt able to thread bilateral LE into pants. Returned to supine for pant hike. Pt able to roll left and right and pull pants up over hips with min assist. Pt returned to sitting and completed transfer to w/c with sliding board. Pt able to place sliding board and complete transfer with CGA. Pt able to remove sliding board as well. Pt sat at sink to complete grooming tasks. Pt washed face, combed hair, and brushed teeth with set up. Increased time for functional tasks. Therapy Code Descriptions/Definitions Functional [place] Measure: 0=Not Assessed/NA 4=Minimal Assistance 1=Total Assistance 5=Supervision or Setup 2=Maximal Assistance 6=Modified [place] 3=Moderate Assistance 7=Complete IndependenceSCALE: Activities may be completed with or without assistive devices. 2-Wewhfhfwwk-ghvizee completes the activity by him/herself with no assistance from a helper. 5-Set-up or Clean-up Assistance-helper sets up or cleans up; patient completes activity. [place] assists only prior to or following the activity. 4-Supervision or Touching Assistance-helper provides verbal cues and/or touching/steadying and/or contact guard assistance as patient completes activity. Assistance may be provided throughout the activity or intermittently. 3-Partial/Moderate Assistance-helper does LESS THAN HALF the effort. [place] lifts, holds or supports trunk or limbs, but provides less than half the effort. 2-Substantial/Maximal Assistance-helper does MORE THAN HALF the effort. [place] lifts or holds trunk or limbs and provides more than half the effort. 6-Jvbgpcffw-dbtyon does ALL the effort. Patient does none of the effort to complete the activity. Or, the assistance of 2 or more helpers is required for the patient to complete the activity. If activity was not attempted, code reason: 7-Patient Refused. 9-Not Applicable-not attempted and the patient did not perform the activity before the current illness, exacerbation or injury. 10-Not Attempted due to Environmental Limitations-(lack of equipment, weather restraints, etc.). 88-Not Attempted due to Medical Conditions or Safety Concerns. Oral Hygiene (QC): 5 Lower Body Dressing (QC): 3 Other Treatment Pt performed w/c mobility to therapy gym without assist. Pt performed bilateral UE exercises to increase strength and activity tolerance needed for functional task completion. Pt performed four exercises x10 reps, 2 sets with dowel katya. Rest breaks between exercises. Pt completed fine motor task with nuts and bolts to increase coordination/manipulation skills and activity tolerance. Pt completed task with increased time. Graded clothespin activity with bilateral UE to increase courtesy driver/pinch strength. Pt able to complete activity without assist. Arm bike x6 minutes to increase overall strength and activity tolerance for ADLs and transfers. Pt performed activity with minimal resistance and slow pace. No rest breaks needed. Pt returned to room, transferred back to bed with sliding board. Sit to supine with min assist. Pt resting in bed with needs met after session. OT Short Term Goals Short Term Goals Lower Body Dressing(FIM): 3 Toilet/Commode Transfer(FIM): 3 Additional Short Term Goals: 1-Demonstrate ADL Tasks, 2-Verbalize Understanding, 3-ImproveStrength/Jesus Alberto 1=Demonstrate adherence to instructed precautions during ADL tasks. 2=Patient will verbalize/demonstrate understanding of assistive devices/modifications for ADL. 3=Patient will improve strength/tolerance for activity to enable patient to perform ADL's. OT Customs Compliance Analyst Goals Customs Compliance Analyst Goals Eating (QC): 6 Oral Hygiene (QC): 6 Shower/Bathe Self (QC): 6 Upper Body Dressing (QC): 6 Lower Body Dressing (QC): 5 On/Off Footwear (QC): 6 Toileting Hygiene (QC): 5 Toilet/Commode Transfer (QC): 5 Additional Goals: 1-Demonstrate ADL Tasks, 2-Verbalize Understanding, 3- ImproveStrength/Jesus Alberto 1=Demonstrate adherence to instructed precautions during ADL tasks. 2=Patient will verbalize/demonstrate understanding of assistive devices/modifications for ADL. 3=Patient will improve strength/tolerance for activity to enable patient to perform ADL's. OT Education/Plan Discharge Recommendations Plan/Recommendations: Continue POC Treatment Plan/Plan of Care Patient would benefit from OT for education, treatment and training to promote independence in ADL's, mobility, safety and/or upper extremity function for ADL's. Plan of Care: ADL Retraining, Caregiver Training, Concurrent Therapy, Functional Mobility, Group Exercise/Act as Ind, UE Funct Exercise/Act Treatment Duration: Jul 27, 2019 Frequency: At least 5 of 7 days/Wk (IRF) Estimated Hrs Per Day: 1.5 hours per day Agreement: Yes Rehab Potential: Fair Time/GCodes Start Time: 08:00 Stop Time: 09:15 Total Time Billed (hr/min): 75 Billed Treatment Time 1 visit, ADLx2(30minutes), EXx3(45minutes) LISANDRO STONE OT Aug 17, 2019 09:11
[2019-08-17] MEDS: DULoxetine 30 MG (CYMBALTA) CAP PO SCH (09:49)
[2019-08-17] MEDS: CLOPIDOGREL 75 MG (PLAVIX) TABLET PO SCH (09:49)
[2019-08-17] MEDS: ASPIRIN E.C. 81 MG (ECOTRIN) TAB PO SCH (09:49)
[2019-08-17] MEDS: TOLTERODINE LA 4 MG (DETROL) CAP PO SCH ×2 (09:49→20:25)
[2019-08-17] MEDS: LORATADINE (CLARITIN) 10 MG TAB PO SCH (09:50)
[2019-08-17] MEDS: BISACODYL 10 MG SUPP (DULCOLAX) PR SCH ×2 (09:51→20:26)
[2019-08-17] MEDS: DOCUSATE CALCIUM 240 MG (SURFAK) CAP PO SCH ×2 (09:51→20:26)
[2019-08-17] MEDS: SENNA W/DOCUSATE (SENOKOT S) TABLET PO SCH ×2 (09:51→20:26)
[2019-08-17] MEDS: POLYETHYLENE GLYCOL 17 GM (MIRALAX) PACK PO SCH ×2 (09:51→20:25)
[2019-08-17] MEDS: BACITRACIN OINTMENT 28 GM TUBE TOP SCH ×2 (09:53→20:24)
[2019-08-17] MEDS: LOSARTAN 25 MG (COZAAR) TAB PO SCH (09:55)
--- NOTE | 2019-08-17 10:00 | NUR ---
STATES FEELS HAS MADE "100% PROGRESS" SINCE HAS BEEN ON REHAB UNIT. FEELS OKAY ABOUT GOING TO [facility] AT DISCHARGE. STATES GRANDDAUGHTER WILL BE BRINGING NEW HEARING AIDE TOMORROW.
--- NOTE | 2019-08-17 10:06 | PM&R Progress Note ---
Subjective HPI/CC On Admission Date Seen by Provider: Aug 17, 2019 Time Seen by Provider: 08:30 CC: Cervical spine injury non-traumatic HPI: This is a 78yoWM who presented to the Hospital with significant compromise in function, was found to have significant cervical spine stenosis causing generalized weakness globally, that was complicated with delirium post- operatively in addition to a UTI diagnosis. Pt previously doctored with Dr. 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 Pt was doing well but had a lengthy acute care course and is in need of significant rehabilitation, prior to returning home. He seems to be very depressed, very tearful when I meet him and reports that he is about to turn 79 next month. I have tried to reassure him and I have put in a behavioral health consult in for him because of obvious tearfulness and overwhelmed feeling and loss of independence that he will need to be aggressively treated for in order to return home safely. Previously he used a walker for the past 6 months prior to admission, had lumbar spine surgery then was discharged home and home PT Collette Ramos evaluated the Pt to have such se higinio weakness that he was total care so he was sent to the ER for workup and from there thing progressed into cervical spine MRI showing severe stenosis and Dr. Bhatt performed surgery with good results but was so severe it was a dural tear during the surgery and he has become quite debilitated. He is urinating well, hasn't had a BM in several days so will need to work on that when he is admitted into the inpatient rehab unit. Overall he will be aggressively treated in order to re-gain his independence in order to return home. Subjective/Events-last exam Pt doing pretty well Incision is still draining but minimal Back pain continues but better Hearing aids will be brought in by his daughter Slow recovery but still improving [facility] Home will be expecting DC on Thursday Cognition is much improved Check meds and labs Reviewed therapy notes Conferred with corrugator helper of Systems General: Fatigue Musculoskeletal: back pain Neurological: Weakness, Numbness, Incoordination Objective Exam Vital Signs Vital Signs Date Time Temp Pulse Resp B/P (MAP) Pulse Ox O2 Delivery O2 Flow Rate FiO2 08/17/19 19:27 Room Air 08/17/19 18:00 36.8 83 18 102/68 (79) 96 Capillary Refill : Less Than 3 Seconds General Appearance: No Apparent Distress, WD/WN, Chronically ill HEENT: PERRL/EOMI, Normal ENT Inspection, Pharynx Normal, Moist Mucous Membranes Neck: Full Range of Motion, Normal Inspection, Non Tender, Supple Respiratory: Chest Non Tender, Lungs Clear, Normal Breath Sounds, No Accessory Muscle Use, No Respiratory Distress Cardiovascular: Regular Rate, Rhythm, No Gallop, No Murmur Gastrointestinal: Normal Bowel Sounds, No Organomegaly, No Pulsatile Mass, Non Tender, Soft Back: Normal Inspection, No CVA Tenderness, Decreased Range of Motion Extremity: Normal Capillary Refill, Normal Inspection, Normal Range of Motion, Non Tender, No Calf Tenderness, No Pedal Edema Neurologic/Psychiatric: Alert, Oriented x3, Normal Mood/Affect, plugging machine operator II-XII Norm as Tested, Motor Weakness Skin: Normal Color, Warm/Dry Lymphatic: No Adenopathy Results/Procedures Lab Patient resulted labs reviewed. FIM Transfers Therapy Code Descriptions/Definitions Functional Story Measure: 0=Not Assessed/NA 4=Minimal Assistance 1=Total Assistance 5=Supervision or Setup 2=Maximal Assistance 6=Modified Story 3=Moderate Assistance 7=Complete IndependenceSCALE: Activities may be completed with or without assistive devices. 3-Nlxctjbpkn-xhnalbc completes the activity by him/herself with no assistance from a helper. 5-Set-up or Clean-up Assistance-helper sets up or cleans up; patient completes activity. [place] assists only prior to or following the activity. 4-Supervision or Touching Assistance-helper provides verbal cues and/or touching/steadying and/or contact guard assistance as patient completes activity. Assistance may be provided throughout the activity or intermittently. 3-Partial/Moderate Assistance-helper does LESS THAN HALF the effort. [place] lifts, holds or supports trunk or limbs, but provides less than half the effort. 2-Substantial/Maximal Assistance-helper does MORE THAN HALF the effort. [place] lifts or holds trunk or limbs and provides more than half the effort. 8-Vshdgwetd-uquaqq does ALL the effort. Patient does none of the effort to complete the activity. Or, the assistance of 2 or more helpers is required for the patient to complete the activity. If activity was not attempted, code reason: 7-Patient Refused. 9-Not Applicable-not attempted and the patient did not perform the activity before the current illness, exacerbation or injury. 10-Not Attempted due to Environmental Limitations-(lack of equipment, weather restraints, etc.). 88-Not Attempted due to Medical Conditions or Safety Concerns. Transfers (B, C, W/C) (FIM): 3 Roll Left to Right (QC): 4 (SBA) Sit to Lying (QC): 3 (Olu. Pt required for LE into bed secondary to LE fatigue.) Sit to Stand (QC): 2 (maxA. Pt fatigues requiring increasing assist with each stand) Chair/Mbw-wv-Awbko Xfer(QC): 4 (sliding board transfer with skilled verb inst and close SBA) Bed to/from Chair: 4 Car Transfer (QC): 1 Gait Training Does the Patient Walk?: No and Walking Goal NOT indicated Distance: 5'x3 Walk 10 feet (QC): 2 (maxAx1 for staying up right and blocking knees.) Walk 50 ft with 2 Turns(QC): 5 Walk 150 ft (QC): 5 Walking 10ft/uneven surface-QC: 88 Gait Persons Needed: 1 Gait Assistive Device: FWW Wheelchair Training Does the Pt Use a Wheelchair?: Yes Wheelchair (FIM): 1 Wheelchair Distance: 7=881-21 ft Distance: within room and bathroom, tight space training Wheel 50 ft with 2 turns (QC): 4 Wheel 150 ft (QC): 4 Type of Wheelchair: Manual ADL-Treatment Eating (QC): 5 Groomin (Pt brushed hair at bed level, he was able to gather hair brush from side table and complete task without assistance.) Oral Hygiene (QC): 5 Bathing Location: L Arm, R Arm, Chest, Abdomen, Perineal Area Shower/Bathe Self (QC): 3 Upper Body Dressing (QC): 5 Lower Body Dressing (QC): 3 On/Off Footwear (QC): 2 (OT educated pt on using sock aid to don socks. OT assisted pt with doffing socks, & demo'd use of sock aid. Pt able to don sock on left foot using sock aid, required assistance with right foot secondary to dressing on heel of foot) Toileting Hygiene (QC): 2 Toilet Transfer (QC): 1 (Pt able to perform SB transfer from EOB to drop arm commode with assist for hand placement and assist scooting across SB. Pt required x2 assist for squat pivot transfer from commode to recliner.) Assessment/Plan Assessment and Plan Assess & Plan/Chief Complaint Assessment: Spinal cord trauma from severe stenosis Debility CAD Delirium now resolved s/p UTI completed treatment recurrent type Constipation now resolved 07/28/19 HTN HLP Cognitive deficit SLUMS Depression w/tearfulness Bladder incontinence improved on Dr Yasmeen rashids Bowel incontinence Plan: Monitor bowel and bladder incontinence IRF protocol Increase strength with IRF protocols BM regimen to hold due to loose stools Started antidepressant Monitor BP Dr Arana consultation is appreciated SD Thursday (1) Spinal cord injury (2) Generalized Weakness (3) Cervical spinal stenosis Status: Acute (4) Neuroforaminal stenosis of spine Status: Acute (5) Essential (primary) hypertension Status: Chronic (6) Lumbar spinal stenosis Status: Acute (7) Slipped intervertebral disc Status: Acute (8) Delirium Status: Acute (9) Incidental durotomy Status: Acute (10) CAD (coronary artery disease) Status: Chronic YANETH REEDER DO Aug 17, 2019 10:06
--- NOTE | 2019-08-17 10:10 | Speech Therapy Daily Note ---
Speech Daily Progress Note Subjective Date Seen by Provider: Aug 17, 2019 Time Seen by Provider: 00:30 Patient was resting in his bed after just finishing PT. Objective The patient completed safety awareness tasks related to his daily needs at 80% given 10% cues. Assessment Assessment Current Status: Good Progress Treatment Plan Continue Plan of Care Speech Short Term Goals Short Term Goals Short Term Goals 1) Patient will complete memory tasks related to his daily needs at 90% or greater, independently. 2) Patient will complete problem solving tasks related to his daily needs at 90% or greater, independently. 3) Patient will complete safety awareness tasks related to his daily needs at 90% or greater, independently. Speech Roving Hand Goals Senior Living Goals Patient will improve cognitive-communication necessary for safety and daily living tasks with minimal assist. Speech-Plan Patient/Family Goals Patient/Family Goals: Patient is anticipated to go to SNF due to decreased progression. Treatment Plan Speech Therapy Treatment Plan: Continue Plan of Care Patient is making good progress toward ST goals. Treatment Duration: Aug 19, 2019 Frequency: 5 times per week Estimated Hrs Per Day: .5 hour per day Rehab Potential: Fair Barriers to Learning: Patient has mild cognitive deficits, physical progression has been slow. Pt/Family Agrees to Plan: Yes Safety Risks/Education Teaching Recipient: Patient Teaching Methods: Demonstration, Discussion Response to Teaching: Verbalize Understanding, Return Demonstration Education Topics Provided: Patient safety within his room and communication of wants/needs. Time Speech Therapy Time In: 09:30 Speech Therapy Time Out: 10:00 Total Billed Time: 30 Billed Treatment Time 1, PATRICIA Rae Aug 17, 2019 10:10
--- NOTE | 2019-08-17 10:53 | Progress Note - Urology ---
Progress Note-Urology Progress Notes/Assess & Plan Progress/Assessment & Plan WE WILL SEE PRN OP. KEEP ON SAME MEDICINES Final Diagnosis BPH AND OAB MU LOCKETT MD Aug 17, 2019 10:53
--- NOTE | 2019-08-17 11:09 | Physical Therapy Daily Note ---
PT Daily Note-Current Subjective Pt laying in bed upon arrival. Pt agrees to PT. Pain Numeric Pain Scale: 5-Moderate Pain Location Body Site: Back Pain Description: Ache Mental Status Patient Orientation: Person, Place, Time, Situation Transfers SCALE: Activities may be completed with or without assistive devices. 2-Shhnkchfzt-vqyzaxl completes the activity by him/herself with no assistance from a helper. 5-Set-up or Clean-up Assistance-helper sets up or cleans up; patient completes activity. [place] assists only prior to or following the activity. 4-Supervision or Touching Assistance-helper provides verbal cues and/or touching/steadying and/or contact guard assistance as patient completes activity. Assistance may be provided throughout the activity or intermittently. 3-Partial/Moderate Assistance-helper does LESS THAN HALF the effort. [place] lifts, holds or supports trunk or limbs, but provides less than half the effort. 2-Substantial/Maximal Assistance-helper does MORE THAN HALF the effort. [place] lifts or holds trunk or limbs and provides more than half the effort. 4-Eypadktcj-hzarjs does ALL the effort. Patient does none of the effort to complete the activity. Or, the assistance of 2 or more helpers is required for the patient to complete the activity. If activity was not attempted, code reason: 7-Patient Refused. 9-Not Applicable-not attempted and the patient did not perform the activity before the current illness, exacerbation or injury. 10-Not Attempted due to Environmental Limitations-(lack of equipment, weather restraints, etc.). 88-Not Attempted due to Medical Conditions or Safety Concerns. Roll Left to Right (QC): 5 Sit to Lying (QC): 5 Sit to Stand (QC): 4 Chair/Jrr-nj-Hkfqk Xfer(QC): 5 Bed to/from Chair: 5 Weight Bearing Right Lower Extremity: Right Weight Bearing/Tolerated Left Lower Extremity: Left Weight Bearing/Tolerated Gait Training Does the Patient Walk?: Yes Gait: 4 Distance: 8'x3 Walk 10 feet (QC): 4 Gait Persons Needed: 1 Gait Assistive Device: Parallel Bars Pt fatigues by end of walk. PT only assists at [facility]. Wheelchair Training Does the Pt Use a Wheelchair?: Yes Wheelchair Distance: 3=150 ft Distance: 100' x2 Wheel 50 ft with 2 turns (QC): 5 Wheel 150 ft (QC): 5 Type of Wheelchair: Manual Exercises Seated Therapy Exercises: Ankle pumps, Long arc quads, Hip flexion, Kicking activity, Hamstring Curls Seated Reps: 20 Treatments Pt transfers from Supine to EOB then places slide board and transfers to W/C. Pt propels W/C in hallway and to Therapy Gym. Pt completes Seated EX in W/C before walking in //bars x3 with RB between each attempt. Pt propels W/C in hallway again and back to room. Pt transfers back to bed via slide board to rest. Pt has all needs met, call light in hand. Assessment Current Status: Good Progress Pt is improving with strength and sequencing of task especially with slide board transfers and ambulating. PT Short Term Goals Short Term Goals Time Frame: Aug 02, 2019 Wheelchair Distance: within room and bathroom, tight space training PT Alf Goals Alf Goals PT Alf Goals Time Frame: Aug 16, 2019 Sit to Lying (QC): 3 (Olu) Lying-Sitting on Side/Bed(QC): 3 (Kofi) Sit to Stand (QC): 1 Roll Left to Right (QC): 3 (Olu) Chair/Zzd-ab-Qaaga Xfer(QC): 3 (Olu) Car Transfer (QC): 1 Walk 10 feet (QC): 88 Walk 10ft-Uneven Surface(QC): 88 Walk 50ft with 2 Turns (QC): 88 Walk 150 ft (QC): 88 Wheel 50 feet with 2 turns (QC: 5 1 Step (curb) (QC): 88 4 Steps (QC): 88 12 Steps (QC): 88 Picking up an Object (QC): 88 PT Plan Problem List Problem List: Activity Tolerance, Functional Strength, Safety, Balance, Gait Treatment/Plan Treatment Plan: Continue Plan of Care Treatment Plan: Bed Mobility, Concurrent Therapy, Education, Functional Activity Jesus Alberto, Functional Strength, Group Therapy, Gait, Safety, Therapeutic Exercise, Transfers Treatment Duration: Aug 16, 2019 Frequency: At least 5 of 7 days/Wk (IRF) Estimated Hrs Per Day: 1.5 hours per day Patient and/or Family Agrees t: Yes Safety Risks/Education Patient Education: Gait Training, Transfer Techniques, Correct Positioning, W/C Management, Safety Issues Teaching Recipient: Patient Teaching Methods: Discussion Response to Teaching: Verbalize Understanding Time/GCodes Time In: 1015 Time Out: 1100 Total Billed Treatment Time: 45 Total Billed Treatment 1, GT (15m), EX (15m) & FA (15m) CAITLIN PIERRE SOFTWARE SALES EXECUTIVE Aug 17, 2019 11:09
--- NOTE | 2019-08-17 13:54 | NUR ---
Follow up: pt smiled when he saw me, and shared he is doing "much better." He rehearsed how this past Thursday he felt discouraged and feared that he would not regain his strength. He said since our last visit, he used his determination to work hard in therapy. He shared that he has been walking much further and he feels stronger. The pt reflected upon how quickly situations can change, and I validated his hope and tenacity. We celebrated the progress he has made with a prayer of thanks to God.
--- NOTE | 2019-08-17 14:12 | NUR ---
Reviewed weekly Care Team Conference Summary with patient. He was agreeable to information discussed, as well as agreeable to proceed with a referral to [facility]. Patient questioned how he would arrive to the facility, and it was mentioned he could either utilize the facility's transport or his daughter. Patient has chosen to utilize the facility, if available. Will continue to follow for discharge planning.
--- NOTE | 2019-08-17 15:15 | Physical Therapy Daily Note ---
PT Daily Note-Current Subjective Pt laying Supine in bed upon arrival. Pt agrees to PT but asks for Supine EX as pt feels fatigued this afternoon from morning Rx. Pain Location: No Pain Reported Mental Status Patient Orientation: Person, Place, Situation Transfers SCALE: Activities may be completed with or without assistive devices. 7-Spkqkdnegt-jztwguc completes the activity by him/herself with no assistance from a helper. 5-Set-up or Clean-up Assistance-helper sets up or cleans up; patient completes activity. Tyler assists only prior to or following the activity. 4-Supervision or Touching Assistance-helper provides verbal cues and/or touching/steadying and/or contact guard assistance as patient completes activity. Assistance may be provided throughout the activity or intermittently. 3-Partial/Moderate Assistance-helper does LESS THAN HALF the effort. Tyler lifts, holds or supports trunk or limbs, but provides less than half the effort. 2-Substantial/Maximal Assistance-helper does MORE THAN HALF the effort. Tyler lifts or holds trunk or limbs and provides more than half the effort. 0-Chaejmapw-wkhren does ALL the effort. Patient does none of the effort to complete the activity. Or, the assistance of 2 or more helpers is required for the patient to complete the activity. If activity was not attempted, code reason: 7-Patient Refused. 9-Not Applicable-not attempted and the patient did not perform the activity before the current illness, exacerbation or injury. 10-Not Attempted due to Environmental Limitations-(lack of equipment, weather restraints, etc.). 88-Not Attempted due to Medical Conditions or Safety Concerns. Weight Bearing Right Lower Extremity: Right Weight Bearing/Tolerated Left Lower Extremity: Left Weight Bearing/Tolerated Exercises Supine Ex: Ankle pumps, Quad Set, Glut sets, Heel Slides, Straight leg raise, Hip abd/add Supine Reps: 20 Treatments Pt completes Supine Ex in bed with a couple short RB as needed. Pt resting at end of Rx. with all needs met, call light in hand. Assessment Current Status: Good Progress Pt is gaining strength, more in L LE than in R LE. PT Short Term Goals Short Term Goals Time Frame: Aug 02, 2019 Wheelchair Distance: 100' x2 PT Radio Repairman Goals Radio Repairman Goals PT Mcc Goals Time Frame: Aug 16, 2019 Sit to Lying (QC): 3 (Olu) Lying-Sitting on Side/Bed(QC): 3 (Kofi) Sit to Stand (QC): 1 Roll Left to Right (QC): 3 (Olu) Chair/Ldf-dr-Vburz Xfer(QC): 3 (Olu) Car Transfer (QC): 1 Walk 10 feet (QC): 88 Walk 10ft-Uneven Surface(QC): 88 Walk 50ft with 2 Turns (QC): 88 Walk 150 ft (QC): 88 Wheel 50 feet with 2 turns (QC: 5 1 Step (curb) (QC): 88 4 Steps (QC): 88 12 Steps (QC): 88 Picking up an Object (QC): 88 PT Plan Problem List Problem List: Activity Tolerance, Functional Strength, Safety, Balance, Gait Treatment/Plan Treatment Plan: Continue Plan of Care Treatment Plan: Bed Mobility, Concurrent Therapy, Education, Functional Activity Jesus Alberto, Functional Strength, Group Therapy, Gait, Safety, Therapeutic Exercise, Transfers Treatment Duration: Aug 16, 2019 Frequency: At least 5 of 7 days/Wk (IRF) Estimated Hrs Per Day: 1.5 hours per day Patient and/or Family Agrees t: Yes Safety Risks/Education Patient Education: Correct Positioning, Safety Issues Teaching Recipient: Patient Teaching Methods: Discussion Response to Teaching: Verbalize Understanding Time/GCodes Time In: 1400 Time Out: 1430 Total Billed Treatment Time: 30 Total Billed Treatment 1, EX x2 (30m) CAITLIN PIERRE PTA Aug 17, 2019 15:15
[2019-08-17 18:00] VITALS: BP 102/68
[2019-08-17] MEDS: DONEPEZIL 10 MG (ARICEPT) TAB PO SCH (20:25)
[2019-08-17] MEDS: risperiDONE 0.25 MG (RisperDAL) TAB PO SCH (20:25)
[2019-08-17] MEDS: TERAZOSIN 5 MG (HYTRIN) CAPSULE PO SCH (20:25)
[2019-08-18] MEDS: HYDROcodone/APAP 5 MG/325 MG (LORTAB) TAB PO PRN ×3 (02:14→20:14)
[2019-08-18 06:25] VITALS: BP 116/75
[2019-08-18] MEDS: PANTOPRAZOLE 40 MG (PROTONIX) TAB PO SCH (06:44)
[2019-08-18] MEDS: LACTOBACILLUS ACIDOPHILUS (PROBIOTIC) CAPSULE PO SCH ×3 (06:44→18:16)
--- NOTE | 2019-08-18 08:45 | Occupational Ther Daily Note ---
OT Current Status-Daily Note Subjective Pt laying in bed at start of session, agreeable to OT treatment with focus on ADLs. Pt did not report any pain this AM. ADL-Treatment Therapy Code Descriptions/Definitions Functional [place] Measure: 0=Not Assessed/NA 4=Minimal Assistance 1=Total Assistance 5=Supervision or Setup 2=Maximal Assistance 6=Modified [place] 3=Moderate Assistance 7=Complete IndependenceSCALE: Activities may be completed with or without assistive devices. 3-Cfqggpgfvc-ejwgvdx completes the activity by him/herself with no assistance from a helper. 5-Set-up or Clean-up Assistance-helper sets up or cleans up; patient completes activity. [place] assists only prior to or following the activity. 4-Supervision or Touching Assistance-helper provides verbal cues and/or touching/steadying and/or contact guard assistance as patient completes activ ity. Assistance may be provided throughout the activity or intermittently. 3-Partial/Moderate Assistance-helper does LESS THAN HALF the effort. [place] lifts, holds or supports trunk or limbs, but provides less than half the effort. 2-Substantial/Maximal Assistance-helper does MORE THAN HALF the effort. [place] lifts or holds trunk or limbs and provides more than half the effort. 0-Ovbxiaaci-suyibr does ALL the effort. Patient does none of the effort to complete the activity. Or, the assistance of 2 or more helpers is required for the patient to complete the activity. If activity was not attempted, code reason: 7-Patient Refused. 9-Not Applicable-not attempted and the patient did not perform the activity before the current illness, exacerbation or injury. 10-Not Attempted due to Environmental Limitations-(lack of equipment, weather restraints, etc.). 88-Not Attempted due to Medical Conditions or Safety Concerns. Eating (QC): 6 (Pt reported he did not have any difficulty opening containers and eating breakfast prior to OT session.) Oral Hygiene (QC): 6 Bathing Location: L Arm, R Arm, L Upper Leg, R Upper Leg, L Lower Leg (including foot), R Lower Leg (including foot), Chest, Abdomen, Perineal Area Shower/Bathe Self (QC): 3 (Pt required assist for washing buttocks. Min A stand at GB. Pt able to use long handled sponge for washing BLE.) Upper Body Dressing (QC): 5 (Pt able to complete UB dressing with set up of clothing prior to task. ) Lower Body Dressing (QC): 3 (Pt able to thread BLE into underwear, required assist threading LLE into pant leg, and assist managing pants/underwear up. Min A sit to stand at grab bars during clothing management.) Toileting Hygiene (QC): 7 (Pt declined attempt to toilet stating he does not transfer to the toilet. When he needs to go to the bathroom, he just goes in the bed. Based on LB dressing and shower, pt would require assitance with managing the clothing up/down and hygiene for task.) Toilet Transfer (QC): 7 (Pt reported he does not use the toilet, declined attempt to transfer to toilet on this date. Pt reports if he needs to use the toilet he just goes in the bed.) Other Treatment Pt transferred EOB with SBA, then SB transfer to w/c requiring assitance with orientation of SB and with removal secondary to board sticking to pt's skin as he attempted to remove. Pt self-propelled w/c to shower, SB transfer to shower chair. Pt completed showering and dressing and then transferred to w/c using SB. Pt completed grooming seated at sink. Pt wheeled to bedroom do don footwear. Footwear QC score: 6 Pt asked if he needed to go to the restroom, pt declined stating he just goes in the bed and does not transfer to the toilet. Nursing present to give pt meds during pt's rest break. Pt performed SB transfer to bed, transferred sit to supine with Mod A for BLE management. Post OT session, pt lay ing in bed, call light in reach and all needs met. Education OT Patient Education: Correct positioning, Modified ADL techniques, Progress toward Goal/Update tx plan, Purpose of tx/functional activities, Transfer techniques Teaching Recipient: Patient Teaching Methods: Demonstration, Discussion Response to Teaching: Verbalize Understanding OT Short Term Goals Short Term Goals Lower Body Dressing(FIM): 3 Toilet/Commode Transfer(FIM): 3 Additional Short Term Goals: 1-Demonstrate ADL Tasks, 2-Verbalize Understanding, 3-ImproveStrength/Jesus Alberto 1=Demonstrate adherence to instructed precautions during ADL tasks. 2=Patient will verbalize/demonstrate understanding of assistive devices/modifications for ADL. 3=Patient will improve strength/tolerance for activity to enable patient to perform ADL's. OT [employer] Bus Driver Goals Intermediate Goals Eating (QC): 6 (met) Oral Hygiene (QC): 6 (met) Shower/Bathe Self (QC): 6 (not met) Upper Body Dressing (QC): 6 (not met) Lower Body Dressing (QC): 5 (not met) On/Off Footwear (QC): 6 (met) Toileting Hygiene (QC): 5 (not met) Toilet/Commode Transfer (QC): 5 (not met) Additional Goals: 1-Demonstrate ADL Tasks, 2-Verbalize Understanding, 3- ImproveStrength/Jesus Alberto 1=Demonstrate adherence to instructed precautions during ADL tasks. 2=Patient will verbalize/demonstrate understanding of assistive devices/modifications for ADL. 3=Patient will improve strength/tolerance for activity to enable patient to perform ADL's. OT Education/Plan Problem List/Assessment Assessment: Decreased Activ Tolerance, Decreased UE Strength, Impaired Funct Balance, Impaired I ADL's, Impaired Self-Care Skills Discharge Recommendations Plan/Recommendations: Continue POC Treatment Plan/Plan of Care Treatment,Training & Education: Yes Patient would benefit from OT for education, treatment and training to promote independence in ADL's, mobility, safety and/or upper extremity function for ADL's. Plan of Care: ADL Retraining, Caregiver Training, Concurrent Therapy, Functional Mobility, Group Exercise/Act as Ind, UE Funct Exercise/Act Treatment Duration: Jul 27, 2019 Frequency: At least 5 of 7 days/Wk (IRF) Estimated Hrs Per Day: 1.5 hours per day Agreement: Yes Rehab Potential: Fair Time/GCodes Start Time: 07:55 Stop Time: 09:10 Total Time Billed (hr/min): 75 Billed Treatment Time 1, ADL 5 RACHID GONZALES OT Aug 18, 2019 08:45
[2019-08-18] MEDS: TOLTERODINE LA 4 MG (DETROL) CAP PO SCH ×2 (08:48→20:14)
[2019-08-18] MEDS: DOCUSATE CALCIUM 240 MG (SURFAK) CAP PO SCH ×2 (08:48→20:14)
[2019-08-18] MEDS: DULoxetine 30 MG (CYMBALTA) CAP PO SCH (08:48)
[2019-08-18] MEDS: CLOPIDOGREL 75 MG (PLAVIX) TABLET PO SCH (08:49)
[2019-08-18] MEDS: LORATADINE (CLARITIN) 10 MG TAB PO SCH (08:49)
[2019-08-18] MEDS: CYCLOBENZAPRINE 10 MG (FLEXERIL) TAB PO PRN ×2 (08:49→20:14)
[2019-08-18] MEDS: ASPIRIN E.C. 81 MG (ECOTRIN) TAB PO SCH (08:49)
[2019-08-18] MEDS: SENNA W/DOCUSATE (SENOKOT S) TABLET PO SCH ×2 (08:49→20:14)
[2019-08-18] MEDS: POLYETHYLENE GLYCOL 17 GM (MIRALAX) PACK PO SCH ×2 (09:08→20:11)
[2019-08-18] MEDS: BISACODYL 10 MG SUPP (DULCOLAX) PR SCH ×2 (09:08→20:19)
[2019-08-18] MEDS: BACITRACIN OINTMENT 28 GM TUBE TOP SCH ×2 (09:08→20:19)
--- NOTE | 2019-08-18 09:37 | PM&R Progress Note ---
Subjective HPI/CC On Admission Date Seen by Provider: Aug 18, 2019 Time Seen by Provider: 08:30 CC: Cervical spine injury non-traumatic HPI: This is a 78yoWM who presented to the Hospital with significant compromise in function, was found to have significant cervical spine stenosis causing generalized weakness globally, that was complicated with delirium post- operatively in addition to a UTI diagnosis. Pt previously doctored with Dr. Tyler Danielson and did not see a regular cardiac monitor although he has had Bypass surgery and has known CAD. Pt was doing well but had a lengthy acute care course and is in need of significant rehabilitation, prior to returning home. He seems to be very depressed, very tearful when I meet him and reports that he is about to turn 79 next month. I have tried to reassure him and I have put in a behavioral health consult in for him because of obvious tearfulness and overwhelmed feeling and loss of independence that he will need to be aggressively treated for in order to return home safely. Previously he used a walker for the past 6 months prior to admission, had lumbar spine surgery then was discharged home and home PT Collette Ramos evaluated the Pt to have such se higinio weakness that he was total care so he was sent to the ER for workup and from there thing progressed into cervical spine MRI showing severe stenosis and Dr. Bhatt performed surgery with good results but was so severe it was a dural tear during the surgery and he has become quite debilitated. He is urinating well, hasn't had a BM in several days so will need to work on that when he is admitted into the inpatient rehab unit. Overall he will be aggressively treated in order to re-gain his independence in order to return home. Subjective/Events-last exam Arrangements were being made for discharge to [facility] tomorrow on skilled care but patient did so well in therapy today that DC will be delayed. Pt appears to be in a good mood today. Back pain is tolerable. Drainage of the back incision continues but it does not appear to be infected. Overall doing very well. Cognition is much improved Check meds and labs Reviewed therapy notes Conferred with assistant executive housekeeper of Systems Musculoskeletal: back pain Neurological: Weakness, Numbness, Incoordination Objective Exam Vital Signs Vital Signs Date Time Temp Pulse Resp B/P (MAP) Pulse Ox O2 Delivery O2 Flow Rate FiO2 08/18/19 17:49 36.3 88 18 101/70 (80) 97 Room Air Capillary Refill : Less Than 3 Seconds General Appearance: No Apparent Distress, WD/WN, Chronically ill HEENT: PERRL/EOMI, Normal ENT Inspection, Pharynx Normal, Moist Mucous Membranes Neck: Full Range of Motion, Normal Inspection, Non Tender, Supple Respiratory: Chest Non Tender, Lungs Clear, Normal Breath Sounds, No Accessory Muscle Use, No Respiratory Distress Cardiovascular: Regular Rate, Rhythm, No Gallop, No Murmur Gastrointestinal: Normal Bowel Sounds, No Organomegaly, No Pulsatile Mass, Non Tender, Soft Back: Normal Inspection, No CVA Tenderness, Decreased Range of Motion Extremity: Normal Capillary Refill, Normal Inspection, Normal Range of Motion, Non Tender, No Calf Tenderness, No Pedal Edema Neurologic/Psychiatric: Alert, Oriented x3, Normal Mood/Affect, senior java j2ee developer II-XII Norm as Tested, Motor Weakness Skin: Normal Color, Warm/Dry Lymphatic: No Adenopathy Results/Procedures Lab Patient resulted labs reviewed. FIM Transfers Therapy Code Descriptions/Definitions Functional [place] Measure: 0=Not Assessed/NA 4=Minimal Assistance 1=Total Assistance 5=Supervision or Setup 2=Maximal Assistance 6=Modified [place] 3=Moderate Assistance 7=Complete IndependenceSCALE: Activities may be completed with or without assistive devices. 9-Ejgiurqqku-rvjlrro completes the activity by him/herself with no assistance from a helper. 5-Set-up or Clean-up Assistance-helper sets up or cleans up; patient completes activity. [place] assists only prior to or following the activity. 4-Supervision or Touching Assistance-helper provides verbal cues and/or touching/steadying and/or contact guard assistance as patient completes activity. Assistance may be provided throughout the activity or intermittently. 3-Partial/Moderate Assistance-helper does LESS THAN HALF the effort. [place] lifts, holds or supports trunk or limbs, but provides less than half the effort. 2-Substantial/Maximal Assistance-helper does MORE THAN HALF the effort. [place] lifts or holds trunk or limbs and provides more than half the effort. 1-Hlohiquey-lrpceg does ALL the effort. Patient does none of the effort to complete the activity. Or, the assistance of 2 or more helpers is required for the patient to complete the activity. If activity was not attempted, code reason: 7-Patient Refused. 9-Not Applicable-not attempted and the patient did not perform the activity before the current illness, exacerbation or injury. 10-Not Attempted due to Environmental Limitations-(lack of equipment, weather restraints, etc.). 88-Not Attempted due to Medical Conditions or Safety Concerns. Transfers (B, C, W/C) (FIM): 3 Roll Left to Right (QC): 5 Sit to Lying (QC): 5 Sit to Stand (QC): 4 Chair/Emy-gq-Sxnpq Xfer(QC): 5 Bed to/from Chair: 5 Car Transfer (QC): 1 Gait Training Does the Patient Walk?: Yes Gait (FIM): 4 Distance: 8'x3 Walk 10 feet (QC): 4 Walk 50 ft with 2 Turns(QC): 5 Walk 150 ft (QC): 5 Walking 10ft/uneven surface-QC: 88 Gait Persons Needed: 1 Gait Assistive Device: Parallel Bars Wheelchair Training Does the Pt Use a Wheelchair?: Yes Wheelchair (FIM): 1 Wheelchair Distance: 3=150 ft Distance: 100' x2 Wheel 50 ft with 2 turns (QC): 5 Wheel 150 ft (QC): 5 Type of Wheelchair: Manual ADL-Treatment Eating (QC): 5 Groomin (Pt brushed hair at bed level, he was able to gather hair brush from side table and complete task without assistance.) Oral Hygiene (QC): 5 Bathing Location: L Arm, R Arm, Chest, Abdomen, Perineal Area Shower/Bathe Self (QC): 3 Upper Body Dressing (QC): 5 Lower Body Dressing (QC): 3 On/Off Footwear (QC): 2 (OT educated pt on using sock aid to don socks. OT assisted pt with doffing socks, & demo'd use of sock aid. Pt able to don sock on left foot using sock aid, required assistance with right foot secondary to dressing on heel of foot) Toileting Hygiene (QC): 2 Toilet Transfer (QC): 1 (Pt able to perform SB transfer from EOB to drop arm commode with assist for hand placement and assist scooting across SB. Pt required x2 assist for squat pivot transfer from commode to recliner.) Assessment/Plan Assessment and Plan Assess & Plan/Chief Complaint Assessment: Spinal cord trauma from severe stenosis Debility CAD Delirium now resolved s/p UTI completed treatment recurrent type Constipation now resolved 07/28/19 HTN HLP Cognitive deficit SLUMS Depression w/tearfulness Bladder incontinence improved on Dr Yasmeen cash Bowel incontinence Plan: Monitor bowel and bladder incontinence IRF protocol Increase strength with IRF protocols BM regimen to hold due to loose stools Started antidepressant Monitor BP Dr Arana consultation is appreciated NH after a few more days in IRF since he is showing significant progress (1) Spinal cord injury (2) Generalized Weakness (3) Cervical spinal stenosis Status: Acute (4) Neuroforaminal stenosis of spine Status: Acute (5) Essential (primary) hypertension Status: Chronic (6) Lumbar spinal stenosis Status: Acute (7) Slipped intervertebral disc Status: Acute (8) Delirium Status: Acute (9) Incidental durotomy Status: Acute (10) CAD (coronary artery disease) Status: Chronic YANETH REEDER DO Aug 18, 2019 09:37
[2019-08-18] MEDS: LOSARTAN 25 MG (COZAAR) TAB PO SCH (09:51)
--- NOTE | 2019-08-18 10:05 | Speech Therapy Daily Note ---
Speech Daily Progress Note Subjective Date Seen by Provider: Aug 18, 2019 Time Seen by Provider: 00:30 Patient was resting in his bed after his shower. Objective Patient completed a series of safety awareness with 95% given 5% verbal and/or visual cues. Assessment Assessment Current Status: Good Progress Speech Short Term Goals Short Term Goals Short Term Goals 1) Patient will complete memory tasks related to his daily needs at 90% or greater, independently. 2) Patient will complete problem solving tasks related to his daily needs at 90% or greater, independently. 3) Patient will complete safety awareness tasks related to his daily needs at 90% or greater, independently. Speech Boom Master Goals Boom Master Goals Patient will improve cognitive-communication necessary for safety and daily living tasks with minimal assist. Speech-Plan Patient/Family Goals Patient/Family Goals: Patient is scheduled to go to SNF on 08/19/19. Treatment Plan Speech Therapy Treatment Plan: Discontinue ST, Goals Met Patient has made good steady progress with ST goals met. Treatment Duration: Aug 19, 2019 Frequency: 5 times per week Estimated Hrs Per Day: .5 hour per day Rehab Potential: Fair Barriers to Learning: Patient has mild cognitive deficits, however these have mostly resolved with skilled ST. Pt/Family Agrees to Plan: Yes Safety Risks/Education Teaching Recipient: Patient Teaching Methods: Demonstration, Discussion Response to Teaching: Verbalize Understanding, Return Demonstration Education Topics Provided: Continued safety upon discharge. Time Speech Therapy Time In: 09:30 Speech Therapy Time Out: 10:00 Total Billed Time: 30 Billed Treatment Time 1, SLTS No Quality Codes: EXPRESSION OF IDEAS/WANTS: 4 UNDERSTANDING VERBAL CONTENT: 3 BRIEF INTERVIEW MENTAL STATUS: YES REPETITION OF 3 WORDS: YES TEMPORAL ORIENTATION: YEAR, MONTH AND DAY all correct RECALL: SOCK yes with cuing COLOR yes with cuing BED yes with cuing MEMORY RECALL ABILITY: season, that he was in the hospital, location of room and staff names PATRICIA GODFREY Aug 18, 2019 10:05
--- NOTE | 2019-08-18 11:59 | Physical Therapy Daily Note ---
PT Daily Note-Current Subjective Pt in bed asleep pre-tx. Pt reports pain is feeling better today and is 5/10 right now in the back. Pt agrees to PT this morning. Appearance Pt reports he is worn out after this session. Pt is in WC sitting in room post- tx. Pt has call light, room phone, tray table in reach and all needs met at this time. Mental Status Patient Orientation: Person, Place, Time, Situation Transfers SCALE: Activities may be completed with or without assistive devices. 1-Sbxiuakirq-eiwjweh completes the activity by him/herself with no assistance from a helper. 5-Set-up or Clean-up Assistance-helper sets up or cleans up; patient completes activity. [place] assists only prior to or following the activity. 4-Supervision or Touching Assistance-helper provides verbal cues and/or touching/steadying and/or contact guard assistance as patient completes activity. Assistance may be provided throughout the activity or intermittently. 3-Partial/Moderate Assistance-helper does LESS THAN HALF the effort. [place] lifts, holds or supports trunk or limbs, but provides less than half the effort. 2-Substantial/Maximal Assistance-helper does MORE THAN HALF the effort. [place] lifts or holds trunk or limbs and provides more than half the effort. 3-Gqwdihghr-kqdaog does ALL the effort. Patient does none of the effort to complete the activity. Or, the assistance of 2 or more helpers is required for the patient to complete the activity. If activity was not attempted, code reason: 7-Patient Refused. 9-Not Applicable-not attempted and the patient did not perform the activity before the current illness, exacerbation or injury. 10-Not Attempted due to Environmental Limitations-(lack of equipment, weather restraints, etc.). 88-Not Attempted due to Medical Conditions or Safety Concerns. Roll Left to Right (QC): 6 Sit to Lying (QC): 6 Sit to Stand (QC): 3 (Olu) Chair/Onk-ot-Emltv Xfer(QC): 4 (CGA after pt performed sit to stand) Car Transfer (QC): 3 (Olu with slide board) Pt has advanced to standing transfers Weight Bearing Right Lower Extremity: Right Weight Bearing/Tolerated Left Lower Extremity: Left Weight Bearing/Tolerated Gait Training Does the Patient Walk?: Yes Distance: 20'x2 with sitting breaks Walk 10 feet (QC): 4 (CGA) Walk 50 ft with 2 Turns(QC): 88 Walk 150 ft (QC): 88 Walking 10ft/uneven surface-QC: 88 Gait Persons Needed: 1 Gait Assistive Device: FWW Pt with improved gait augustin today continues to be limited by LE fatigue Wheelchair Training Does the Pt Use a Wheelchair?: Yes Wheelchair Distance: 3=150 ft Distance: 150' Wheel 50 ft with 2 turns (QC): 6 Wheel 150 ft (QC): 6 Type of Wheelchair: Manual Stair Training 1 Step (curb) (QC): 88 4 Steps (QC): 88 12 Steps (QC): 88 Balance Picking up an Object (QC): 88 Exercises NuStep Minutes: 10 NuStep Workload: 4 Treatments Pt performed transfer training, skilled gait training, WC training, and LE endurance ex this date. Assessment Current Status: Good Progress Pt progressed to standing with FWW to transfer with Olu to CGA. Pt able to walk sig farther distance today with CGA. Pt spirits continue to progress and pt is on board with continuing to make work for progress. PT Short Term Goals Short Term Goals Time Frame: Aug 02, 2019 Wheelchair Distance: 100' x2 PT Auto Mechanic Goals Penitentiary Goals PT Penitentiary Goals Time Frame: Aug 16, 2019 Sit to Lying (QC): 3 (Olu) Lying-Sitting on Side/Bed(QC): 3 (Kofi) Sit to Stand (QC): 1 Roll Left to Right (QC): 3 (Olu) Chair/Kxq-di-Cvqca Xfer(QC): 3 (Olu) Car Transfer (QC): 1 Walk 10 feet (QC): 88 Walk 10ft-Uneven Surface(QC): 88 Walk 50ft with 2 Turns (QC): 88 Walk 150 ft (QC): 88 Wheel 50 feet with 2 turns (QC: 5 1 Step (curb) (QC): 88 4 Steps (QC): 88 12 Steps (QC): 88 Picking up an Object (QC): 88 PT Plan Problem List Problem List: Activity Tolerance, Functional Strength, Safety, Balance, Gait, Transfer, Bed Mobility Treatment/Plan Treatment Plan: Continue Plan of Care Treatment Plan: Bed Mobility, Education, Functional Activity Jesus Alberto, Functional Strength, Group Therapy, Gait, Safety, Therapeutic Exercise, Transfers Treatment Duration: Aug 16, 2019 Frequency: At least 5 of 7 days/Wk (IRF) Estimated Hrs Per Day: 1.5 hours per day Patient and/or Family Agrees t: Yes Safety Risks/Education Patient Education: Gait Training, Transfer Techniques, Correct Positioning, W/C Management, Safety Issues Teaching Recipient: Patient Teaching Methods: Demonstration Response to Teaching: Verbalize Understanding, Return Demonstration, Reinforcement Needed Time/GCodes Time In: 1100 Time Out: 1200 Total Billed Treatment Time: 60 Total Billed Treatment 1 visit FA 30' EX 10' GT 20' ALANA CISNEROS PT Aug 18, 2019 11:59
--- NOTE | 2019-08-18 14:59 | Physical Therapy Daily Note ---
PT Daily Note-Current Subjective Pt in bed pre-tx. Pt reports pain is feeling alright this afternoon. pt agrees to PT this afternoon. Appearance Pt in bed post-tx. Pt with RN in room at this time. nurse call, room phone, table tray in reach and all needs met at this time. Mental Status Patient Orientation: Person, Place, Time, Situation Transfers SCALE: Activities may be completed with or without assistive devices. 1-Bkphbzpuzx-rcnqpmm completes the activity by him/herself with no assistance from a helper. 5-Set-up or Clean-up Assistance-helper sets up or cleans up; patient completes activity. [place] assists only prior to or following the activity. 4-Supervision or Touching Assistance-helper provides verbal cues and/or touching/steadying and/or contact guard assistance as patient completes activity. Assistance may be provided throughout the activity or intermittently. 3-Partial/Moderate Assistance-helper does LESS THAN HALF the effort. [place] lifts, holds or supports trunk or limbs, but provides less than half the effort. 2-Substantial/Maximal Assistance-helper does MORE THAN HALF the effort. [place] lifts or holds trunk or limbs and provides more than half the effort. 2-Viqsehoqb-eeyvhx does ALL the effort. Patient does none of the effort to complete the activity. Or, the assistance of 2 or more helpers is required for the patient to complete the activity. If activity was not attempted, code reason: 7-Patient Refused. 9-Not Applicable-not attempted and the patient did not perform the activity befo re the current illness, exacerbation or injury. 10-Not Attempted due to Environmental Limitations-(lack of equipment, weather re straints, etc.). 88-Not Attempted due to Medical Conditions or Safety Concerns. Roll Left to Right (QC): 6 Sit to Lying (QC): 3 (Olu for LE into bed.) Sit to Stand (QC): 3 (modA.) Weight Bearing Right Lower Extremity: Right Weight Bearing/Tolerated Left Lower Extremity: Left Weight Bearing/Tolerated Gait Training Gait: 8 (x4 in //bars) Gait Assistive Device: FWW Pt with LE fatigue this afternoon had more difficulty getting upright in FWW to walk. Treatments Pt performed bed mobility, skilled ambulation training, transfer training, and education this afternoon. Assessment Current Status: Good Progress Pt was overall much more fatigued this afternoon. Pt was able to stand better in the // bars where he could pull up. Pt is showing improved recall to remember to push up from his chair and reach down before sitting. PT Short Term Goals Short Term Goals Time Frame: Aug 02, 2019 Wheelchair Distance: 150' PT Photolithographer Goals Chcf Goals PT Chcf Goals Time Frame: Aug 16, 2019 Sit to Lying (QC): 3 (Olu) Lying-Sitting on Side/Bed(QC): 3 (Kofi) Sit to Stand (QC): 1 Roll Left to Right (QC): 3 (Olu) Chair/Jlx-ok-Ulvyd Xfer(QC): 3 (Olu) Car Transfer (QC): 1 Walk 10 feet (QC): 88 Walk 10ft-Uneven Surface(QC): 88 Walk 50ft with 2 Turns (QC): 88 Walk 150 ft (QC): 88 Wheel 50 feet with 2 turns (QC: 5 1 Step (curb) (QC): 88 4 Steps (QC): 88 12 Steps (QC): 88 Picking up an Object (QC): 88 PT Plan Problem List Problem List: Activity Tolerance, Functional Strength, Safety, Balance, Gait, Transfer, Bed Mobility Treatment/Plan Treatment Plan: Continue Plan of Care Treatment Plan: Bed Mobility, Education, Functional Activity Jesus Alberto, Functional Strength, Group Therapy, Gait, Safety, Therapeutic Exercise, Transfers Treatment Duration: Aug 16, 2019 Frequency: At least 5 of 7 days/Wk (IRF) Estimated Hrs Per Day: 1.5 hours per day Patient and/or Family Agrees t: Yes Safety Risks/Education Patient Education: Gait Training, Transfer Techniques, Correct Positioning, Safety Issues Teaching Recipient: Patient Teaching Methods: Demonstration, Discussion Response to Teaching: Return Demonstration, Reinforcement Needed Time/GCodes Time In: 1433 Time Out: 1453 Total Billed Treatment Time: 20 Total Billed Treatment 1 visit GT 20' SNEHA ODONNELL PT Aug 18, 2019 14:59
--- NOTE | 2019-08-18 15:36 | NUR ---
Received notification patient was accepted to [facility]. Today patient displayed notable improvement with PT, e.g., ambulated 20x2 with CGA; therefore, it was recommended patient discharge be placed on hold. Patient presented with the option of either discharging tomorrow to SNF vs remaining on ARU, for further intensive therapies; patient has chosen to remain on unit. Courtney Edgar notified. Will continue to follow.
[2019-08-18 17:49] VITALS: BP 101/70
[2019-08-18] MEDS: risperiDONE 0.25 MG (RisperDAL) TAB PO SCH (20:14)
[2019-08-18] MEDS: DONEPEZIL 10 MG (ARICEPT) TAB PO SCH (20:14)
[2019-08-18] MEDS: TERAZOSIN 5 MG (HYTRIN) CAPSULE PO SCH (20:14)
[2019-08-19] MEDS: PANTOPRAZOLE 40 MG (PROTONIX) TAB PO SCH (05:09)
[2019-08-19] MEDS: LACTOBACILLUS ACIDOPHILUS (PROBIOTIC) CAPSULE PO SCH ×3 (05:09→17:32)
[2019-08-19 05:28] VITALS: BP 106/73
[2019-08-19] MEDS: HYDROcodone/APAP 5 MG/325 MG (LORTAB) TAB PO PRN ×3 (05:29→19:29)
--- NOTE | 2019-08-19 08:15 | Occupational Ther Daily Note ---
OT Current Status-Daily Note Subjective Pt laying in bed at start of session, agreeable to OT tx this AM. Pt did not report any pain during session. Mental Status/Objective Patient Orientation: Person, Place, Time, Situation ADL-Treatment Therapy Code Descriptions/Definitions Functional [place] Measure: 0=Not Assessed/NA 4=Minimal Assistance 1=Total Assistance 5=Supervision or Setup 2=Maximal Assistance 6=Modified [place] 3=Moderate Assistance 7=Complete IndependenceSCALE: Activities may be completed with or without assistive devices. 4-Futdtornfq-bxjvsjs completes the activity by him/herself with no assistance from a helper. 5-Set-up or Clean-up Assistance-helper sets up or cleans up; patient completes activity. [place] assists only prior to or following the activity. 4-Supervision or Touching Assistance-helper provides verbal cues and/or touching/steadying and/or contact guard assistance as patient completes activity. Assistance may be provided throughout the activity or intermittently. 3-Partial/Moderate Assistance-helper does LESS THAN HALF the effort. [place] lifts, holds or supports trunk or limbs, but provides less than half the effort. 2-Substantial/Maximal Assistance-helper does MORE THAN HALF the effort. [place] lifts or holds trunk or limbs and provides more than half the effort. 7-Uxw[place]-kmkhov does ALL the effort. Patient does none of the effort to complete the activity. Or, the assistance of 2 or more helpers is required for the patient to complete the activity. If activity was not attempted, code reason: 7-Patient Refused. 9-Not Applicable-not attempted and the patient did not perform the activity before the current illness, exacerbation or injury. 10-Not Attempted due to Environmental Limitations-(lack of equipment, weather restraints, etc.). 88-Not Attempted due to Medical Conditions or Safety Concerns. Eating (QC): 6 (Pt finishing eggs at start of session. Pt reports he was able to open container by himself and did not require any assistance for task.) Oral Hygiene (QC): 6 (Pt completed oral hygiene seated in w/c at sink.) Lower Body Dressing (QC): 3 (Pt able to thread BLE into pants at bed level, required assistance managing pants up over hips. Pt able to roll side to side in bed in order for OT to assist.) Other Treatment Pt laying in bed at start of session, donned pants at bed level. Pt transferred supine to sit EOB with SBA. Pt transferred from EOB to w/c using FWW with Mod A for balance during transfer. Pt able to self propel w/c into bathroom to compl ete face washing, hair brushing, teeth brushing and shaving. Pt taken to therapy gym, completing [id number] on arm bike without rest breaks, min resistance in order to increase activity tolerance. Pt then completed nuts and bolts task in order to improve fine motor coordination/manipulation skills and activity tolerance, completing task without assistance. In order to increase pinch/sandwich hand strength pt place/removed graded clothespins (ranging 1-5#) x1 set using RUE, x1 set with LUE. Pt self-propelled w/c to his room. Pt transferred to bed with FWW stand pivot transfer, Min A. Sit to supine, Min A for assistance with RLE. Post OT session, pt laying in bed, call light in reach and all needs met. Education OT Patient Education: Correct positioning, Energy conservation, Exercise program, Modified ADL techniques, Progress toward Goal/Update tx plan, Purpose o f tx/functional activities, Transfer techniques Teaching Recipient: Patient Teaching Methods: Demonstration, Discussion Response to Teaching: Verbalize Understanding, Return Demonstration OT Short Term Goals Short Term Goals Lower Body Dressing(FIM): 3 Toilet/Commode Transfer(FIM): 3 Additional Short Term Goals: 1-Demonstrate ADL Tasks, 2-Verbalize Under standing, 3-ImproveStrength/Jesus Alberto 1=Demonstrate adherence to instructed precautions during ADL tasks. 2=Patient will verbalize/demonstrate understanding of assistive devices/modifications for ADL. 3=Patient will improve strength/tolerance for activity to enable patient to perform ADL's. OT Senior Living Goals Supervisor Industrial Garment Goals Eating (QC): 6 (met) Oral Hygiene (QC): 6 (met) Shower/Bathe Self (QC): 6 (not met) Upper Body Dressing (QC): 6 (not met) Lower Body Dressing (QC): 5 (not met) On/Off Footwear (QC): 6 (met) Toileting Hygiene (QC): 5 (not met) Toilet/Commode Transfer (QC): 5 (not met) Additional Goals: 1-Demonstrate ADL Tasks, 2-Verbalize Understanding, 3-ImproveStrength/Jesus Alberto 1=Demonstrate adherence to instructed precautions during ADL tasks. 2=Patient will verbalize/demonstrate understanding of assistive devices/modifications for ADL. 3=Patient will improve strength/tolerance for activity to enable patient to perform ADL's. OT Education/Plan Problem List/Assessment Assessment: Decreased Activ Tolerance, Decreased UE Strength, Impaired Funct Balance, Impaired I ADL's, Impaired Self-Care Skills Discharge Recommendations Plan/Recommendations: Continue POC Treatment Plan/Plan of Care Treatment,Training & Education: Yes Patient would benefit from OT for education, treatment and training to promote independence in ADL's, mobility, safety and/or upper extremity function for ADL's. Plan of Care: ADL Retraining, Caregiver Training, Concurrent Therapy, Functional Mobility, Group Exercise/Act as Ind, UE Funct Exercise/Act Treatment Duration: Jul 27, 2019 Frequency: At least 5 of 7 days/Wk (IRF) Estimated Hrs Per Day: 1.5 hours per day Agreement: Yes Rehab Potential: Fair Time/GCodes Start Time: 07:55 Stop Time: 08:55 Total Time Billed (hr/min): 60 Billed Treatment Time 1, ADL 2 [id number], EX [id number], FA [id number] RACHID GONZALES OT Aug 19, 2019 08:15
--- NOTE | 2019-08-19 09:03 | PM&R Progress Note ---
Subjective HPI/CC On Admission Date Seen by Provider: Aug 19, 2019 Time Seen by Provider: 09:15 CC: Cervical spine injury non-traumatic HPI: This is a 78yoWM who presented to the Hospital with significant compromise in function, was found to have significant cervical spine stenosis causing generalized weakness globally, that was complicated with delirium post- operatively in addition to a UTI diagnosis. Pt previously doctored with Dr. 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 Pt was doing well but had a lengthy acute care course and is in need of significant rehabilitation, prior to returning home. He seems to be very depressed, very tearful when I meet him and reports that he is about to turn 79 next month. I have tried to reassure him and I have put in a behavioral health consult in for him because of obvious tearfulness and overwhelmed feeling and loss of independence that he will need to be aggressively treated for in order to return home safely. Previously he used a walker for the past 6 months prior to admission, had lumbar spine surgery then was discharged home and home PT Collette Ramos evaluated the Pt to have such se higinio weakness that he was total care so he was sent to the ER for workup and from there thing progressed into cervical spine MRI showing severe stenosis and Dr. Bhatt performed surgery with good results but was so severe it was a dural tear during the surgery and he has become quite debilitated. He is urinating well, hasn't had a BM in several days so will need to work on that when he is admitted into the inpatient rehab unit. Overall he will be aggressively treated in order to re-gain his independence in order to return home. Subjective/Events-last exam Arrangements were being made for discharge to [place] today on skilled care but patient did so well in therapy today that DC will be delayed until next week. Pt appears to be in a good mood today and very excited about his recovery. Back pain is tolerable. Drainage of the back incision continues but it does not appear to be infected. Overall doing very well. 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 of Systems Musculoskeletal: back pain Neurological: Weakness, Numbness, Incoordination Objective Exam Vital Signs Vital Signs Date Time Temp Pulse Resp B/P (MAP) Pulse Ox O2 Delivery O2 Flow Rate FiO2 08/19/19 09:15 99 102/73 (83) 08/19/19 05:28 36.3 20 100 Room Air Capillary Refill : Less Than 3 Seconds General Appearance: No Apparent Distress, WD/WN, Chronically ill HEENT: PERRL/EOMI, Normal ENT Inspection, Pharynx Normal, Moist Mucous Me mbranes Neck: Full Range of Motion, Normal Inspection, Non Tender, Supple Respiratory: Chest Non Tender, Lungs Clear, Normal Breath Sounds, No Accessory Muscle Use, No Respiratory Distress Cardiovascular: Regular Rate, Rhythm, No Gallop, No Murmur Gastrointestinal: Normal Bowel Sounds, No Organomegaly, No Pulsatile Mass, Non Tender, Soft Back: Normal Inspection, No CVA Tenderness, Decreased Range of Motion Extremity: Normal Capillary Refill, Normal Inspection, Normal Range of Motion, Non Tender, No Calf Tenderness, No Pedal Edema Neurologic/Psychiatric: Alert, Oriented x3, Normal Mood/Affect, toll settlement clerk II-XII Norm as Tested, Motor Weakness Skin: Normal Color, Warm/Dry Lymphatic: No Adenopathy Results/Procedures Lab Patient resulted labs reviewed. FIM Transfers Therapy Code Descriptions/Definitions Functional [place] Measure: 0=Not Assessed/NA 4=Minimal Assistance 1=Total Assistance 5=Supervision or Setup 2=Maximal Assistance 6=Modified [place] 3=Moderate Assistance 7=Complete IndependenceSCALE: Activities may be completed with or without assistive devices. 2-Vnympilxwl-qsnnzzz completes the activity by him/herself with no assistance from a helper. 5-Set-up or Clean-up Assistance-helper sets up or cleans up; patient completes activity. [place] assists only prior to or following the activity. 4-Supervision or Touching Assistance-helper provides verbal cues and/or touching/steadying and/or contact guard assistance as patient completes activity. Assistance may be provided throughout the activity or intermittently. 3-Partial/Moderate Assistance-helper does LESS THAN HALF the effort. [place] lifts, holds or supports trunk or limbs, but provides less than half the effort. 2-Substantial/Maximal Assistance-helper does MORE THAN HALF the effort. [place] lifts or holds trunk or limbs and provides more than half the effort. 8-Zzipwcgon-nxrbfz does ALL the effort. Patient does none of the effort to complete the activity. Or, the assistance of 2 or more helpers is required for the patient to complete the activity. If activity was not attempted, code reason: 7-Patient Refused. 9-Not Applicable-not attempted and the patient did not perform the activity before the current illness, exacerbation or injury. 10-Not Attempted due to Environmental Limitations-(lack of equipment, weather restraints, etc.). 88-Not Attempted due to Medical Conditions or Safety Concerns. Transfers (B, C, W/C) (FIM): 3 Roll Left to Right (QC): 6 Sit to Lying (QC): 3 (Olu for LE into bed.) Sit to Stand (QC): 3 (modA.) Chair/Vda-bk-Enzza Xfer(QC): 4 (CGA after pt performed sit to stand) Bed to/from Chair: 5 Car Transfer (QC): 3 (Olu with slide board) Gait Training Does the Patient Walk?: Yes Gait (FIM): 8 (x4 in //bars) Distance: 20'x2 with sitting breaks Walk 10 feet (QC): 4 (CGA) Walk 50 ft with 2 Turns(QC): 88 Walk 150 ft (QC): 88 Walking 10ft/uneven surface-QC: 88 Gait Persons Needed: 1 Gait Assistive Device: FWW Wheelchair Training Does the Pt Use a Wheelchair?: Yes Wheelchair (FIM): 1 Wheelchair Distance: 3=150 ft Distance: 150' Wheel 50 ft with 2 turns (QC): 6 Wheel 150 ft (QC): 6 Type of Wheelchair: Manual Stair Training 1 Step (curb) (QC): 88 4 Steps (QC): 88 12 Steps (QC): 88 Balance Picking up an Object (QC): 88 ADL-Treatment Eating (QC): 6 (Pt finishing eggs at start of session. Pt reports he was able to open container by himself and did not require any assistance for task.) Groomin (Pt brushed hair at bed level, he was able to gather hair brush from side table and complete task without assistance.) Oral Hygiene (QC): 6 (Pt completed oral hygiene seated in w/c at sink.) Bathing Location: L Arm, R Arm, L Upper Leg, R Upper Leg, L Lower Leg (including foot), R Lower Leg (including foot), Chest, Abdomen, Perineal Area Shower/Bathe Self (QC): 3 (Pt required assist for washing buttocks. Min A stand at GB. Pt able to use long handled sponge for washing BLE.) Upper Body Dressing (QC): 5 (Pt able to complete UB dressing with set up of clothing prior to task. ) Lower Body Dressing (QC): 3 (Pt able to thread BLE into pants at bed level, required assistance managing pants up over hips. Pt able to roll side to side in bed in order for OT to assist.) On/Off Footwear (QC): 2 (OT educated pt on using sock aid to don socks. OT assisted pt with doffing socks, & demo'd use of sock aid. Pt able to don sock on left foot using sock aid, required assistance with right foot secondary to dressing on heel of foot) Toileting Hygiene (QC): 7 (Pt declined attempt to toilet stating he does not transfer to the toilet. When he needs to go to the bathroom, he just goes in the bed. Based on LB dressing and shower, pt would require assitance with managing the clothing up/down and hygiene for task.) Toilet Transfer (QC): 7 (Pt reported he does not use the toilet, declined attempt to transfer to toilet on this date. Pt reports if he needs to use the toilet he just goes in the bed.) Assessment/Plan Assessment and Plan Assess & Plan/Chief Complaint Assessment: Spinal cord trauma from severe stenosis Debility CAD Delirium now resolved s/p UTI completed treatment recurrent type Constipation now resolved 07/28/19 HTN HLP Cognitive deficit SLUMS Depression w/tearfulness Bladder incontinence improved on Dr Yasmeen cash Bowel incontinence Plan: Monitor bowel and bladder incontinence IRF protocol Increase strength with IRF protocols BM regimen to hold due to loose stools Started antidepressant Monitor BP Dr Arana consultation is appreciated DC next week (1) Spinal cord injury (2) Generalized Weakness (3) Cervical spinal stenosis Status: Acute (4) Neuroforaminal stenosis of spine Status: Acute (5) Essential (primary) hypertension Status: Chronic (6) Lumbar spinal stenosis Status: Acute (7) Slipped intervertebral disc Status: Acute (8) Delirium Status: Acute (9) Incidental durotomy Status: Acute (10) CAD (coronary artery disease) Status: Chronic YANETH REEDER DO Aug 19, 2019 09:03
[2019-08-19 09:15] VITALS: BP 102/73
[2019-08-19] MEDS: SENNA W/DOCUSATE (SENOKOT S) TABLET PO SCH ×2 (09:16→19:28)
[2019-08-19] MEDS: BACITRACIN OINTMENT 28 GM TUBE TOP SCH ×2 (09:16→19:30)
[2019-08-19] MEDS: CLOPIDOGREL 75 MG (PLAVIX) TABLET PO SCH (09:16)
[2019-08-19] MEDS: TOLTERODINE LA 4 MG (DETROL) CAP PO SCH ×2 (09:16→19:28)
[2019-08-19] MEDS: ASPIRIN E.C. 81 MG (ECOTRIN) TAB PO SCH (09:16)
[2019-08-19] MEDS: LORATADINE (CLARITIN) 10 MG TAB PO SCH (09:16)
[2019-08-19] MEDS: DULoxetine 30 MG (CYMBALTA) CAP PO SCH (09:16)
[2019-08-19] MEDS: DOCUSATE CALCIUM 240 MG (SURFAK) CAP PO SCH ×2 (09:16→19:28)
[2019-08-19] MEDS: LOSARTAN 25 MG (COZAAR) TAB PO SCH (09:49)
[2019-08-19] MEDS: POLYETHYLENE GLYCOL 17 GM (MIRALAX) PACK PO SCH ×2 (09:49→19:29)
[2019-08-19] MEDS: BISACODYL 10 MG SUPP (DULCOLAX) PR SCH ×2 (09:50→19:29)
--- NOTE | 2019-08-19 10:37 | Speech Therapy Daily Note ---
Speech Daily Progress Note Subjective Date Seen by Provider: Aug 19, 2019 Time Seen by Provider: 00:30 Patient was awake and alert. Patient was pleasant and cooperative during today's session. Objective Patient participated in memory tasks independently in 60% opportunities. Patient would often forget half of presented items, but was successful when given verbal cues. Assessment Assessment Current Status: Good Progress Treatment Plan Continue Plan of Care Speech Short Term Goals Short Term Goals Short Term Goals 1) Patient will complete memory tasks related to his daily needs at 90% or greater, independently. 2) Patient will complete problem solving tasks related to his daily needs at 90% or greater, independently. 3) Patient will complete safety awareness tasks related to his daily needs at 90% or greater, independently. Speech Residential Goals Residential Goals Patient will improve cognitive-communication necessary for safety and daily living tasks with minimal assist. Speech-Plan Patient/Family Goals Patient/Family Goals: Patient plans to return to skilled care or return home with granddaughter, per patient report Treatment Plan Speech Therapy Treatment Plan: Continue Plan of Care Patient was engaged and cooperative. Patient demonstrated moderate cognitive deficits during memory tasks today and benefitted from verbal cues. Treatment Duration: Aug 26, 2019 Frequency: 5 times per week Estimated Hrs Per Day: .5 hour per day Rehab Potential: Fair Barriers to Learning: cognition Pt/Family Agrees to Plan: Yes Safety Risks/Education Teaching Recipient: Patient Teaching Methods: Discussion Response to Teaching: Verbalize Understanding Education Topics Provided: room safety and memory aids Time Speech Therapy Time In: 09:00 Speech Therapy Time Out: 09:30 Total Billed Time: 30 Billed Treatment Time 1LANI SELMA DEL RIO Aug 19, 2019 10:37
--- NOTE | 2019-08-19 10:48 | Physical Therapy Daily Note ---
PT Daily Note-Current Subjective Pt in bed pre-tx. pt agrees to PT this morning. Pt reports pain is still getting better down to 4/10 this morning in low back. Appearance Pt in bed post-tx. Pt with room phone, call light, tray table, and all needs met at this time. Mental Status Patient Orientation: Person, Place, Time, Situation Transfers SCALE: Activities may be completed with or without assistive devices. 1-Xjkkklvuwy-sktzbcc completes the activity by him/herself with no assistance from a helper. 5-Set-up or Clean-up Assistance-helper sets up or cleans up; patient completes activity. [place] assists only prior to or following the activity. 4-Supervision or Touching Assistance-helper provides verbal cues and/or touching/steadying and/or contact guard assistance as patient completes activity. Assistance may be provided throughout the activity or intermittently. 3-Partial/Moderate Assistance-helper does LESS THAN HALF the effort. [place] lifts, holds or supports trunk or limbs, but provides less than half the effort. 2-Substantial/Maximal Assistance-helper does MORE THAN HALF the effort. [place] lifts or holds trunk or limbs and provides more than half the effort. 8-Yrzupkqgn-jqsxyo does ALL the effort. Patient does none of the effort to complete the activity. Or, the assistance of 2 or more helpers is required for the patient to complete the activity. If activity was not attempted, code reason: 7-Patient Refused. 9-Not Applicable-not attempted and the patient did not perform the activity before the current illness, exacerbation or injury. 10-Not Attempted due to Environmental Limitations-(lack of equipment, weather restraints, etc.). 88-Not Attempted due to Medical Conditions or Safety Concerns. Roll Left to Right (QC): 6 Sit to Lying (QC): 3 (Olu for RLE into bed) Sit to Stand (QC): 3 (Pt started Olu and with fatigue required more assist up to modA) Chair/Hnq-vr-Asvdy Xfer(QC): 3 (Olu-CGA stand pivot with FWW) Pt performed bed <-> WC, WC <-> nustep, stand pivot Olu-CGA Weight Bearing Right Lower Extremity: Right Weight Bearing/Tolerated Left Lower Extremity: Left Weight Bearing/Tolerated Gait Training Distance: 36',40', 20' Walk 10 feet (QC): 4 (CGA) Gait Assistive Device: FWW Pt continues to fatigue quickly with ambulation. Near end of session pt's R knee began to get weak and buckle. Wheelchair Training Does the Pt Use a Wheelchair?: Yes Distance: 50' x2 Wheel 50 ft with 2 turns (QC): 6 Type of Wheelchair: Manual Exercises Standing: Mini squats (sitting on Nustepx 10reps) NuStep Minutes: 7 NuStep Workload: 4 Treatments Pt performed transfer training, skilled ambulation training, bed mobility, and LE exercises and education this session. Assessment Current Status: Good Progress Pt continues to [place]ustin increased ambulation distance. Pt with noted fatigue following this session. Pt continues to require increased assistance with sit to stands as session progresses but is still improving overall. Pt continues to require 2-3min rest breaks between ambulation bouts to catch breath. PT Short Term Goals Short Term Goals Time Frame: Aug 02, 2019 Wheelchair Distance: 150' PT Assisted Goals Assisted Goals PT Assisted Goals Time Frame: Aug 16, 2019 Sit to Lying (QC): 3 (Olu) Lying-Sitting on Side/Bed(QC): 3 (Kofi) Sit to Stand (QC): 1 Roll Left to Right (QC): 3 (Olu) Chair/Irg-er-Qwvie Xfer(QC): 3 (Olu) Car Transfer (QC): 1 Walk 10 feet (QC): 88 Walk 10ft-Uneven Surface(QC): 88 Walk 50ft with 2 Turns (QC): 88 Walk 150 ft (QC): 88 Wheel 50 feet with 2 turns (QC: 5 1 Step (curb) (QC): 88 4 Steps (QC): 88 12 Steps (QC): 88 Picking up an Object (QC): 88 PT Plan Problem List Problem List: Activity Tolerance, Functional Strength, Safety, Balance, Gait, Transfer, Bed Mobility, ROM Treatment/Plan Treatment Plan: Continue Plan of Care Treatment Plan: Bed Mobility, Education, Functional Activity Jesus Alberto, Functional Strength, Group Therapy, Gait, Safety, Therapeutic Exercise, Transfers Treatment Duration: Aug 16, 2019 Frequency: At least 5 of 7 days/Wk (IRF) Estimated Hrs Per Day: 1.5 hours per day Patient and/or Family Agrees t: Yes Safety Risks/Education Patient Education: Gait Training, Transfer Techniques, Correct Positioning, W/C Management, Safety Issues Teaching Recipient: Patient Teaching Methods: Demonstration, Discussion Response to Teaching: Verbalize Understanding, Return Demonstration, Reinforcement Needed Time/GCodes Time In: 950 Time Out: 1050 Total Billed Treatment Time: 60 Total Billed Treatment 1 visit EX 10' FA 20' GT 30' ALANA CISNEROS PT Aug 19, 2019 10:48
--- NOTE | 2019-08-19 14:26 | Therapy Group Daily Note ---
Therapy Daily Group Note Patient Education Topic Other List Below (ambulation, ARU description/expectations) Exercises LE Seated Exercise, UE Exercise Session Ratio (pt:therapist): 5:1 Goal of Session: Education on ARU Expectations, UE/LE Strengthing, Other (list) (ambulation) Goal Met for this Session: Yes Pt Benefit of Group: Contributions to Others, Increased Functional Safety, Increased Functional Strength, Improved Cognition, Recognition of Peers, Socialization Other/Notes Pt transported via w/c to [facility] for OT/PT group. Group consisted of introductions (name, place living, telling a joke), socialization, UE/LE seated exercises, education of ARU description/expectations and walking safely util izing AE. Pt introduced self appropriately and actively listened to peers. Pt demonstrated understanding of educational topics by asking questions or giving personal observations and stories. Pt was able to tolerate UE/LE seated exercises with assist with L LE at times. After therapy, pt lying in bed with call light/phone in reach. All needs met in room. Start Time: 13:00 Stop Time: 14:15 Total Billed Treatment Time: 75 Total Billed Treatment 1-GRP SNEHA GARCIA Aug 19, 2019 14:26 POS
[2019-08-19 17:57] VITALS: BP 114/81
[2019-08-19] MEDS: DONEPEZIL 10 MG (ARICEPT) TAB PO SCH (19:28)
[2019-08-19] MEDS: risperiDONE 0.25 MG (RisperDAL) TAB PO SCH (19:28)
[2019-08-19] MEDS: TERAZOSIN 5 MG (HYTRIN) CAPSULE PO SCH (19:28)
[2019-08-20] MEDS: LACTOBACILLUS ACIDOPHILUS (PROBIOTIC) CAPSULE PO SCH ×3 (05:56→16:51)
[2019-08-20] MEDS: PANTOPRAZOLE 40 MG (PROTONIX) TAB PO SCH (05:56)
[2019-08-20] MEDS: HYDROcodone/APAP 5 MG/325 MG (LORTAB) TAB PO PRN ×2 (05:57→16:52)
[2019-08-20 06:00] VITALS: BP 93/60
[2019-08-20 08:00] VITALS: BP 85/59
--- NOTE | 2019-08-20 08:00 | NUR ---
PATIENT COMPLAINS OF LIGHT HURTING EYES AND VISION BLURRY. STATES THIS HAPPENS EVERY MONTH OR SO. REQUESTED TO BE LEFT ALONE SO CAN KEEP EYES CLOSED AND REST.
--- NOTE | 2019-08-20 08:10 | Physical Therapy Daily Note ---
PT Daily Note-Current Subjective Pt laying Supine in bed upon arrival. Pt reports not feeling well and eye pain. Nurse notified. Pt agrees to Supine Ex in bed. Pain Numeric Pain Scale: 5-Moderate Pain Location Body Site: Eye Pain Description: Ache Mental Status Patient Orientation: Person, Place, Situation Transfers SCALE: Activities may be completed with or without assistive devices. 2-Utizievdmo-yzkdviw completes the activity by him/herself with no assistance from a helper. 5-Set-up or Clean-up Assistance-helper sets up or cleans up; patient completes activity. [place] assists only prior to or following the activity. 4-Supervision or Touching Assistance-helper provides verbal cues and/or touching/steadying and/or contact guard assistance as patient completes activity. Assistance may be provided throughout the activity or intermittently. 3-Partial/Moderate Assistance-helper does LESS THAN HALF the effort. [place] lifts, holds or supports trunk or limbs, but provides less than half the effort. 2-Substantial/Maximal Assistance-helper does MORE THAN HALF the effort. [place] lifts or holds trunk or limbs and provides more than half the effort. 3-Nbpojlbsa-jnnols does ALL the effort. Patient does none of the effort to complete the activity. Or, the assistance of 2 or more helpers is required for the patient to complete the activity. If activity was not attempted, code reason: 7-Patient Refused. 9-Not Applicable-not attempted and the patient did not perform the activity before the current illness, exacerbation or injury. 10-Not Attempted due to Environmental Limitations-(lack of equipment, weather restraints, etc.). 88-Not Attempted due to Medical Conditions or Safety Concerns. Weight Bearing Right Lower Extremity: Right Weight Bearing/Tolerated Left Lower Extremity: Left Weight Bearing/Tolerated Exercises Supine Ex: Ankle pumps, Quad Set, Heel Slides, Hip abd/add Supine Reps: 15 Treatments Pt completes Supine EX in bed. Pt resting and all needs met at end of Rx, call light next to pt. Assessment Current Status: Fair Progress Pt is limited but eye pain and feeling ill this morning, Nurse notified. PT Short Term Goals Short Term Goals Time Frame: Aug 02, 2019 Wheelchair Distance: 50' x2 PT Nursing Home Goals Nursing Home Goals PT Nursing Home Goals Time Frame: Aug 16, 2019 Sit to Lying (QC): 3 (Olu) Lying-Sitting on Side/Bed(QC): 3 (Kofi) Sit to Stand (QC): 1 Roll Left to Right (QC): 3 (Olu) Chair/Uth-zc-Eobmu Xfer(QC): 3 (Olu) Car Transfer (QC): 1 Walk 10 feet (QC): 88 Walk 10ft-Uneven Surface(QC): 88 Walk 50ft with 2 Turns (QC): 88 Walk 150 ft (QC): 88 Wheel 50 feet with 2 turns (QC: 5 1 Step (curb) (QC): 88 4 Steps (QC): 88 12 Steps (QC): 88 Picking up an Object (QC): 88 PT Plan Problem List Problem List: Activity Tolerance, Functional Strength, Safety, Balance, Gait Treatment/Plan Treatment Plan: Continue Plan of Care Treatment Plan: Bed Mobility, Education, Functional Activity Jesus Alberto, Functional Strength, Group Therapy, Gait, Safety, Therapeutic Exercise, Transfers Treatment Duration: Aug 16, 2019 Frequency: At least 5 of 7 days/Wk (IRF) Estimated Hrs Per Day: 1.5 hours per day Patient and/or Family Agrees t: Yes Safety Risks/Education Patient Education: Correct Positioning, Safety Issues Teaching Recipient: Patient Teaching Methods: Discussion Response to Teaching: Verbalize Understanding Time/GCodes Time In: 745 Time Out: 800 Total Billed Treatment Time: 15 Total Billed Treatment 1, EX (15m) CAITLIN PIERRE PTA Aug 20, 2019 08:10
[2019-08-20 08:15] VITALS: BP 92/64
[2019-08-20] MEDS: LOSARTAN 25 MG (COZAAR) TAB PO SCH (08:18)
[2019-08-20] MEDS: LORATADINE (CLARITIN) 10 MG TAB PO SCH (08:18)
[2019-08-20] MEDS: CLOPIDOGREL 75 MG (PLAVIX) TABLET PO SCH (08:18)
[2019-08-20] MEDS: ASPIRIN E.C. 81 MG (ECOTRIN) TAB PO SCH (08:18)
[2019-08-20] MEDS: TOLTERODINE LA 4 MG (DETROL) CAP PO SCH ×2 (08:18→19:33)
[2019-08-20] MEDS: DULoxetine 30 MG (CYMBALTA) CAP PO SCH (08:18)
[2019-08-20] MEDS: BISACODYL 10 MG SUPP (DULCOLAX) PR SCH ×2 (08:19→19:35)
[2019-08-20] MEDS: POLYETHYLENE GLYCOL 17 GM (MIRALAX) PACK PO SCH ×2 (08:19→19:34)
[2019-08-20] MEDS: DOCUSATE CALCIUM 240 MG (SURFAK) CAP PO SCH ×2 (08:21→19:33)
[2019-08-20] MEDS: SENNA W/DOCUSATE (SENOKOT S) TABLET PO SCH ×2 (08:22→19:32)
[2019-08-20] MEDS: BACITRACIN OINTMENT 28 GM TUBE TOP SCH ×2 (08:23→19:35)
--- NOTE | 2019-08-20 10:30 | NUR ---
HAD A NICE NAP. STATES VISION IS FINE NOW. FAMILY VISITING. STATES HAVING BETTER CONTROL OF BLADDER AND BOWELS. WAS HYPOTENSIVE THIS AM AND COLEIDY HELD.
--- NOTE | 2019-08-20 10:31 | Cardiology Progress Note ---
Subjective Date Seen by Provider: Aug 20, 2019 Time Seen by Provider: 10:30 Subjective/Events-last exam patient is laying down in bed, feeling better. Denied any chest pain Review of Systems General: No Chills, No Night Sweats, No Fatigue, No Malaise, No Appetite, No Other HEENT: No Head Aches, No Visual Changes, No Eye Pain, No Ear Pain, No Dysphasia, No Sinus Congestion, No Post Nasal Drip, No Sore Throat, No Other Pulmonary: No Dyspnea, No Cough, No Pleuritic Chest Pain, No Other Cardiovascular: No: Chest Pain, Palpitations, Orthopnea, Paroxysmal Noc. Dyspnea, Edema, Lt Headedness, Other Objective-Cardiology Exam Last Set of Vital Signs Vital Signs 08/20/19 08/20/19 06:00 07:00 Temp 36.2 Pulse 86 Resp 16 B/P (MAP) 93/60 (71) Pulse Ox 95 O2 Delivery Room Air Capillary Refill : Less Than 3 Seconds I&O Intake and Output 08/20/19 00:00 Intake Total 1400 ml Output Total 475 ml Balance 925 ml Intake Oral 1400 ml Output Urine Total 475 ml # Voids 3 General: Alert, Oriented X3 HEENT: Atraumatic, EOMI Neck: Supple, No JVD, No Thyromegaly Lungs: Clear to Auscultation, Normal Air Movement Heart: Regular Rate, Normal S1, Normal S2, No Murmurs Abdomen: Normal Bowel Sounds, Soft, No Tenderness, No Hepatosplenomegaly, No Masses Extremities: No Clubbing, No Tenderness/Swelling Skin: No Rashes, No Breakdown, No Significant Lesion Neuro: Normal Speech, Normal Tone, Sensation Intact Psych/Mental Status: Mental Status NL A/P-Cardiology Admission Diagnosis Spinal Stenosis Chest pain CAD HTN Assessment/Plan Spinal stenosis, slipped disc, status post L2-3 laminectomy done on July 20, 2019, back pain continues to improve. Chest pain, chronic stable angina, no further episodes of chest pain reported. Continue to monitor Coronary artery disease, history of CABG, multiple intervention the past, recent cardiac catheterization with drug-eluting stent deployment to the vein graft to the diagonal artery, had a patent GRACE to LAD with patent stent beyond the anastomosis in the LAD, small vessel disease otherwise done by Dr. Perez in [facility], currently back on Plavix. Continue to monitor Hypertension, borderline hypotensive, maintained on losartan 25 mg daily. Continue to monitor. His hypertension is probably due to the multiple pain medication and muscle relaxant he is taking. Sinus bradycardia, better at this time, off beta blockers. Hyperlipidemia, maintained on statin Generalized weakness, lower and upper extremity weakness, cervical spinal stenosis with slipped disc, s/p L 2-[address] Bhatt earlier this morning. Dementia Clinical Quality Measures DVT/VTE Risk/Contraindication: Risk Factor Score Per Nursin RFS Level Per Nursing on Admit: 4+=Very High CHRISTIANO DAVIS MD Aug 20, 2019 10:31
--- NOTE | 2019-08-20 14:50 | PM&R Progress Note ---
Subjective HPI/CC On Admission Date Seen by Provider: Aug 20, 2019 Time Seen by Provider: 13:30 CC: Cervical spine injury non-traumatic HPI: This is a 78yoWM who presented to the Hospital with significant compromise in function, was found to have significant cervical spine stenosis causing generalized weakness globally, that was complicated with delirium post- operatively in addition to a UTI diagnosis. Pt previously doctored with Dr. Tyler Danielson and did not see a regular senior c software engineer although he has had Bypass surgery and has known CAD. Pt was doing well but had a lengthy acute care course and is in need of significant rehabilitation, prior to returning home. He seems to be very depressed, very tearful when I meet him and reports that he is about to turn 79 next month. I have tried to reassure him and I have put in a behavioral health consult in for him because of obvious tearfulness and overwhelmed feeling and loss of independence that he will need to be aggressively treated for in order to return home safely. Previously he used a walker for the past 6 months prior to admission, had lumbar spine surgery then was discharged home and home PT Collette Ramos evaluated the Pt to have such se higinio weakness that he was total care so he was sent to the ER for workup and from there thing progressed into cervical spine MRI showing severe stenosis and Dr. Bhatt performed surgery with good results but was so severe it was a dural tear during the surgery and he has become quite debilitated. He is urinating well, hasn't had a BM in several days so will need to work on that when he is admitted into the inpatient rehab unit. Overall he will be aggressively treated in order to re-gain his independence in order to return home. Subjective/Events-last exam Had some blurry eyes but cleared with a nap Pt appears to be in a good mood today and very excited about his recovery. Back pain is tolerable. BP low and Losartan is being held an BB held since Thursday Improved bowel and bladder incontinence Overall doing very well. Cognition is much improved Check meds and labs Reviewed therapy notes Conferred with calibration engineer of Systems General: Fatigue Musculoskeletal: back pain Neurological: Weakness, Numbness, Incoordination Objective Exam Vital Signs Vital Signs Date Time Temp Pulse Resp B/P (MAP) Pulse Ox O2 Delivery O2 Flow Rate FiO2 08/20/19 09:00 Room Air 08/20/19 08:15 96 92/64 (73) 08/20/19 07:00 95 08/20/19 06:00 36.2 16 Capillary Refill : Less Than 3 Seconds General Appearance: No Apparent Distress, WD/WN, Chronically ill HEENT: PERRL/EOMI, Normal ENT Inspection, Pharynx Normal, Moist Mucous Membranes Neck: Full Range of Motion, Normal Inspection, Non Tender, Supple Respiratory: Chest Non Tender, Lungs Clear, Normal Breath Sounds, No Accessory Muscle Use, No Respiratory Distress Cardiovascular: Regular Rate, Rhythm, No Gallop, No Murmur Gastrointestinal: Normal Bowel Sounds, No Organomegaly, No Pulsatile Mass, Non Tender, Soft Back: Normal Inspection, No CVA Tenderness, Decreased Range of Motion (much improved today) Extremity: Normal Capillary Refill, Normal Inspection, Normal Range of Motion, Non Tender, No Calf Tenderness, No Pedal Edema Neurologic/Psychiatric: Alert, Oriented x3, Normal Mood/Affect, benefits representative II-XII Norm as Tested, Motor Weakness Skin: Normal Color, Warm/Dry Lymphatic: No Adenopathy Results/Procedures Lab Patient resulted labs reviewed. FIM Transfers Therapy Code Descriptions/Definitions Functional [place] Measure: 0=Not Assessed/NA 4=Minimal Assistance 1=Total Assistance 5=Supervision or Setup 2=Maximal Assistance 6=Modified [place] 3=Moderate Assistance 7=Complete IndependenceSCALE: Activities may be completed with or without assistive devices. 9-Ahhzvdlvxg-cbcquoi completes the activity by him/herself with no assistance from a helper. 5-Set-up or Clean-up Assistance-helper sets up or cleans up; patient completes activity. [place] assists only prior to or following the activity. 4-Supervision or Touching Assistance-helper provides verbal cues and/or touching/steadying and/or contact guard assistance as patient completes activity. Assistance may be provided throughout the activity or intermittently. 3-Partial/Moderate Assistance-helper does LESS THAN HALF the effort. [place] lifts, holds or supports trunk or limbs, but provides less than half the effort. 2-Substantial/Maximal Assistance-helper does MORE THAN HALF the effort. [place] lifts or holds trunk or limbs and provides more than half the effort. 8-Ijzlgjjmh-boznfg does ALL the effort. Patient does none of the effort to com plete the activity. Or, the assistance of 2 or more helpers is required for the patient to complete the activity. If activity was not attempted, code reason: 7-Patient Refused. 9-Not Applicable-not attempted and the patient did not perform the activity before the current illness, exacerbation or injury. 10-Not Attempted due to Environmental Limitations-(lack of equipment, weather restraints, etc.). 88-Not Attempted due to Medical Conditions or Safety Concerns. Transfers (B, C, W/C) (FIM): 3 Roll Left to Right (QC): 6 Sit to Lying (QC): 3 (Olu for RLE into bed) Sit to Stand (QC): 3 (Pt started Olu and with fatigue required more assist up to modA) Chair/Xwm-ho-Ehbhn Xfer(QC): 3 (Olu-CGA stand pivot with FWW) Bed to/from Chair: 5 Car Transfer (QC): 3 (Olu with slide board) Gait Training Does the Patient Walk?: Yes Gait (FIM): 8 (x4 in //bars) Distance: 36',40', 20' Walk 10 feet (QC): 4 (CGA) Walk 50 ft with 2 Turns(QC): 88 Walk 150 ft (QC): 88 Walking 10ft/uneven surface-QC: 88 Gait Persons Needed: 1 Gait Assistive Device: FWW Wheelchair Training Does the Pt Use a Wheelchair?: Yes Wheelchair (FIM): 1 Wheelchair Distance: 3=150 ft Distance: 50' x2 Wheel 50 ft with 2 turns (QC): 6 Wheel 150 ft (QC): 6 Type of Wheelchair: Manual Stair Training 1 Step (curb) (QC): 88 4 Steps (QC): 88 12 Steps (QC): 88 Balance Picking up an Object (QC): 88 ADL-Treatment Eating (QC): 6 (Pt finishing eggs at start of session. Pt reports he was able to open container by himself and did not require any assistance for task.) Groomin (Pt brushed hair at bed level, he was able to gather hair brush from side table and complete task without assistance.) Oral Hygiene (QC): 6 (Pt completed oral hygiene seated in w/c at sink.) Bathing Location: L Arm, R Arm, L Upper Leg, R Upper Leg, L Lower Leg (including foot), R Lower Leg (including foot), Chest, Abdomen, Perineal Area Shower/Bathe Self (QC): 3 (Pt required assist for washing buttocks. Min A stand at GB. Pt able to use long handled sponge for washing BLE.) Upper Body Dressing (QC): 5 (Pt able to complete UB dressing with set up of clothing prior to task. ) Lower Body Dressing (QC): 3 (Pt able to thread BLE into pants at bed level, required assistance managing pants up over hips. Pt able to roll side to side in bed in order for OT to assist.) On/Off Footwear (QC): 2 (OT educated pt on using sock aid to don socks. OT assisted pt with doffing socks, & demo'd use of sock aid. Pt able to don sock on left foot using sock aid, required assistance with right foot secondary to dressing on heel of foot) Toileting Hygiene (QC): 7 (Pt declined attempt to toilet stating he does not transfer to the toilet. When he needs to go to the bathroom, he just goes in the bed. Based on LB dressing and shower, pt would require assitance with managing the clothing up/down and hygiene for task.) Toilet Transfer (QC): 7 (Pt reported he does not use the toilet, declined attempt to transfer to toilet on this date. Pt reports if he needs to use the toilet he just goes in the bed.) Assessment/Plan Assessment and Plan Assess & Plan/Chief Complaint Assessment: Spinal cord trauma from severe stenosis Debility CAD Delirium now resolved s/p UTI completed treatment recurrent type Constipation now resolved 07/28/19 HTN HLP Cognitive deficit SLUMS Depression w/tearfulness Bladder incontinence improved on Dr Yasmeen cash Bowel incontinence improved now Plan: Monitor bowel and bladder incontinence IRF protocol Increase strength with IRF protocols BM regimen to hold due to loose stools Started antidepressant Monitor BP and holding most BP meds Dr Arana consultation is appreciated [facility] next week (1) Spinal cord injury (2) Generalized Weakness (3) Cervical spinal stenosis Status: Acute (4) Neuroforaminal stenosis of spine Status: Acute (5) Essential (primary) hypertension Status: Chronic (6) Lumbar spinal stenosis Status: Acute (7) Slipped intervertebral disc Status: Acute (8) Delirium Status: Acute (9) Incidental durotomy Status: Acute (10) CAD (coronary artery disease) Status: Chronic YANETH REEDER DO Aug 20, 2019 14:50
[2019-08-20 17:21] VITALS: BP 105/71
--- NOTE | 2019-08-20 18:00 | NUR ---
POOR OUTPUT. BLADDER SCANNED AND 3 CC URINE. WILL ENCOURAGE FLUIDS.
[2019-08-20] MEDS: risperiDONE 0.25 MG (RisperDAL) TAB PO SCH (19:32)
[2019-08-20] MEDS: DONEPEZIL 10 MG (ARICEPT) TAB PO SCH (19:33)
[2019-08-20] MEDS: TERAZOSIN 5 MG (HYTRIN) CAPSULE PO SCH (19:34)
[2019-08-21] MEDS: CYCLOBENZAPRINE 10 MG (FLEXERIL) TAB PO PRN (02:48)
[2019-08-21 05:08] VITALS: BP 90/63
[2019-08-21] MEDS: LACTOBACILLUS ACIDOPHILUS (PROBIOTIC) CAPSULE PO SCH ×3 (06:25→16:29)
[2019-08-21] MEDS: PANTOPRAZOLE 40 MG (PROTONIX) TAB PO SCH (06:25)
[2019-08-21] MEDS: ASPIRIN E.C. 81 MG (ECOTRIN) TAB PO SCH (08:46)
[2019-08-21] MEDS: CLOPIDOGREL 75 MG (PLAVIX) TABLET PO SCH (08:46)
[2019-08-21] MEDS: DULoxetine 30 MG (CYMBALTA) CAP PO SCH (08:46)
[2019-08-21] MEDS: TOLTERODINE LA 4 MG (DETROL) CAP PO SCH ×2 (08:46→19:53)
[2019-08-21] MEDS: LORATADINE (CLARITIN) 10 MG TAB PO SCH (08:46)
[2019-08-21] MEDS: HYDROcodone/APAP 5 MG/325 MG (LORTAB) TAB PO PRN (08:47)
[2019-08-21] MEDS: LOSARTAN 25 MG (COZAAR) TAB PO SCH (08:48)
[2019-08-21] MEDS: POLYETHYLENE GLYCOL 17 GM (MIRALAX) PACK PO SCH ×2 (08:49→19:54)
[2019-08-21] MEDS: SENNA W/DOCUSATE (SENOKOT S) TABLET PO SCH ×2 (08:52→19:53)
[2019-08-21] MEDS: DOCUSATE CALCIUM 240 MG (SURFAK) CAP PO SCH ×2 (08:52→19:54)
[2019-08-21] MEDS: BACITRACIN OINTMENT 28 GM TUBE TOP SCH ×2 (08:52→19:55)
--- NOTE | 2019-08-21 09:00 | NUR ---
REFUSES TO SIT UP IN CHAIR. "MAKES MY BACK HURT". COMPLAIN LEFT SIDE BOTTOM SORE. AREA RED BUT NO SKIN BREAKDOWN. MAKING SURE TO TURN FROM SIDE TO SIDE.
--- NOTE | 2019-08-21 09:09 | PM&R Progress Note ---
Subjective HPI/CC On Admission Date Seen by Provider: Aug 21, 2019 Time Seen by Provider: 09:15 CC: Cervical spine injury non-traumatic HPI: This is a 78yoWM who presented to the Hospital with significant compromise in function, was found to have significant cervical spine stenosis causing generalized weakness globally, that was complicated with delirium post- operatively in addition to a UTI diagnosis. Pt previously doctored with Dr. Tyler Danielson and did not see a regular anatomic pathology assistant although he has had Bypass surgery and has known CAD. Pt was doing well but had a lengthy acute care course and is in need of significant rehabilitation, prior to returning home. He seems to be very depressed, very tearful when I meet him and reports that he is about to turn 79 next month. I have tried to reassure him and I have put in a behavioral health consult in for him because of obvious tearfulness and overwhelmed feeling and loss of independence that he will need to be aggressively treated for in order to return home safely. Previously he used a walker for the past 6 months prior to admission, had lumbar spine surgery then was discharged home and home PT Collette Ramos evaluated the Pt to have such se higinio weakness that he was total care so he was sent to the ER for workup and from there thing progressed into cervical spine MRI showing severe stenosis and Dr. Bhatt performed surgery with good results but was so severe it was a dural tear during the surgery and he has become quite debilitated. He is urinating well, hasn't had a BM in several days so will need to work on that when he is admitted into the inpatient rehab unit. Overall he will be aggressively treated in order to re-gain his independence in order to return home. Subjective/Events-last exam No BM since 3 days ago so will order more meds SBP 90's holding meds Incision pain is about the same HR ok Improved bowel and bladder incontinence Overall doing very well. Cognition is much improved Check meds and labs Reviewed therapy notes Conferred with business development manager of Systems Musculoskeletal: back pain Objective Exam Vital Signs Vital Signs Date Time Temp Pulse Resp B/P (MAP) Pulse Ox O2 Delivery O2 Flow Rate FiO2 08/21/19 05:08 36.4 87 18 90/63 (72) 96 Room Air Capillary Refill : Less Than 3 Seconds General Appearance: No Apparent Distress, WD/WN, Chronically ill HEENT: PERRL/EOMI, Normal ENT Inspection, Pharynx Normal, Moist Mucous Membranes Neck: Full Range of Motion, Normal Inspection, Non Tender, Supple Respiratory: Chest Non Tender, Lungs Clear, Normal Breath Sounds, No Accessory Muscle Use, No Respiratory Distress Cardiovascular: Regular Rate, Rhythm, No Gallop, No Murmur Gastrointestinal: Normal Bowel Sounds, No Organomegaly, No Pulsatile Mass, Non Tender, Soft Back: Normal Inspection, No CVA Tenderness, Decreased Range of Motion (much improved today) Extremity: Normal Capillary Refill, Normal Inspection, Normal Range of Motion, Non Tender, No Calf Tenderness, No Pedal Edema Neurologic/Psychiatric: Alert, Oriented x3, Normal Mood/Affect, senior contracts administrator II-XII Norm as Tested, Motor Weakness Skin: Normal Color, Warm/Dry Lymphatic: No Adenopathy Results/Procedures Lab Patient resulted labs reviewed. FIM Transfers Therapy Code Descriptions/Definitions Functional [place] Measure: 0=Not Assessed/NA 4=Minimal Assistance 1=Total Assistance 5=Supervision or Setup 2=Maximal Assistance 6=Modified [place] 3=Moderate Assistance 7=Complete IndependenceSCALE: Activities may be completed with or without assistive devices. 4-Yhcpkwwmqx-trdmakq completes the activity by him/herself with no assistance from a helper. 5-Set-up or Clean-up Assistance-helper sets up or cleans up; patient completes activity. [place] assists only prior to or following the activity. 4-Supervision or Touching Assistance-helper provides verbal cues and/or touching/steadying and/or contact guard assistance as patient completes activity. Assistance may be provided throughout the activity or intermittently. 3-Partial/Moderate Assistance-helper does LESS THAN HALF the effort. [place] lifts, holds or supports trunk or limbs, but provides less than half the effort. 2-Substantial/Maximal Assistance-helper does MORE THAN HALF the effort. [place] lifts or holds trunk or limbs and provides more than half the effort. 7-Oluxuhcrg-qnoawq does ALL the effort. Patient does none of the effort to complete the activity. Or, the assistance of 2 or more helpers is required for the patient to complete the activity. If activity was not attempted, code reason: 7-Patient Refused. 9-Not Applicable-not attempted and the patient did not perform the activity before the current illness, exacerbation or injury. 10-Not Attempted due to Environmental Limitations-(lack of equipment, weather restraints, etc.). 88-Not Attempted due to Medical Conditions or Safety Concerns. Transfers (B, C, W/C) (FIM): 3 Roll Left to Right (QC): 6 Sit to Lying (QC): 3 (Olu for RLE into bed) Sit to Stand (QC): 3 (Pt started Olu and with fatigue required more assist up to modA) Chair/Zzp-la-Hgonw Xfer(QC): 3 (Olu-CGA stand pivot with FWW) Bed to/from Chair: 5 Car Transfer (QC): 3 (Olu with slide board) Gait Training Does the Patient Walk?: Yes Gait (FIM): 8 (x4 in //bars) Distance: 36',40', 20' Walk 10 feet (QC): 4 (CGA) Walk 50 ft with 2 Turns(QC): 88 Walk 150 ft (QC): 88 Walking 10ft/uneven surface-QC: 88 Gait Persons Needed: 1 Gait Assistive Device: FWW Wheelchair Training Does the Pt Use a Wheelchair?: Yes Wheelchair (FIM): 1 Wheelchair Distance: 3=150 ft Distance: 50' x2 Wheel 50 ft with 2 turns (QC): 6 Wheel 150 ft (QC): 6 Type of Wheelchair: Manual Stair Training 1 Step (curb) (QC): 88 4 Steps (QC): 88 12 Steps (QC): 88 Balance Picking up an Object (QC): 88 ADL-Treatment Eating (QC): 6 (Pt finishing eggs at start of session. Pt reports he was able to open container by himself and did not require any assistance for task.) Groomin (Pt brushed hair at bed level, he was able to gather hair brush from side table and complete task without assistance.) Oral Hygiene (QC): 6 (Pt completed oral hygiene seated in w/c at sink.) Bathing Location: L Arm, R Arm, L Upper Leg, R Upper Leg, L Lower Leg (including foot), R Lower Leg (including foot), Chest, Abdomen, Perineal Area Shower/Bathe Self (QC): 3 (Pt required assist for washing buttocks. Min A stand at GB. Pt able to use long handled sponge for washing BLE.) Upper Body Dressing (QC): 5 (Pt able to complete UB dressing with set up of clothing prior to task. ) Lower Body Dressing (QC): 3 (Pt able to thread BLE into pants at bed level, required assistance managing pants up over hips. Pt able to roll side to side in bed in order for OT to assist.) On/Off Footwear (QC): 2 (OT educated pt on using sock aid to don socks. OT assisted pt with doffing socks, & demo'd use of sock aid. Pt able to don sock on left foot using sock aid, required assistance with right foot secondary to dressing on heel of foot) Toileting Hygiene (QC): 7 (Pt declined attempt to toilet stating he does not transfer to the toilet. When he needs to go to the bathroom, he just goes in the bed. Based on LB dressing and shower, pt would require assitance with managing the clothing up/down and hygiene for task.) Toilet Transfer (QC): 7 (Pt reported he does not use the toilet, declined attempt to transfer to toilet on this date. Pt reports if he needs to use the toilet he just goes in the bed.) Assessment/Plan Assessment and Plan Assess & Plan/Chief Complaint Assessment: Spinal cord trauma from severe stenosis Debility CAD Delirium now resolved s/p UTI completed treatment recurrent type Constipation related to surgery HTN HLP Cognitive deficit SLUMS Depression w/tearfulness Bladder incontinence improved on Dr Yasmeen cash Bowel incontinence improved now Plan: Monitor bowel and bladder incontinence IRF protocol Increase strength with IRF protocols BM regimen to hold due to loose stools Started antidepressant Monitor BP and holding most BP meds Dr Arana consultation is appreciated [facility] this week (1) Spinal cord injury (2) Generalized Weakness (3) Cervical spinal stenosis Status: Acute (4) Neuroforaminal stenosis of spine Status: Acute (5) Essential (primary) hypertension Status: Chronic (6) Lumbar spinal stenosis Status: Acute (7) Slipped intervertebral disc Status: Acute (8) Delirium Status: Acute (9) Incidental durotomy Status: Acute (10) CAD (coronary artery disease) Status: Chronic YANETH REEDER DO Aug 21, 2019 09:09
--- NOTE | 2019-08-21 10:00 | NUR ---
DR. DAVIS HERE TO SEE PATIENT. ARNOLD DC'D DUE TO BRADYCARDIA.
--- NOTE | 2019-08-21 10:56 | Cardiology Progress Note ---
Subjective Date Seen by Provider: Aug 21, 2019 Time Seen by Provider: 10:55 Subjective/Events-last exam patient is laying down in bed, no new complaint, no chest pain Review of Systems General: No Chills, No Night Sweats, No Fatigue, No Malaise, No Appetite, No Other HEENT: No Head Aches, No Visual Changes, No Eye Pain, No Ear Pain, No Dysphasia, No Sinus Congestion, No Post Nasal Drip, No Sore Throat, No Other Pulmonary: No Dyspnea, No Cough, No Pleuritic Chest Pain, No Other Cardiovascular: No: Chest Pain, Palpitations, Orthopnea, Paroxysmal Noc. Dyspnea, Edema, Lt Headedness, Other Objective-Cardiology Exam Last Set of Vital Signs Vital Signs 08/21/19 05:08 Temp 36.4 Pulse 87 Resp 18 B/P (MAP) 90/63 (72) Pulse Ox 96 O2 Delivery Room Air Capillary Refill : Less Than 3 Seconds I&O Intake and Output 08/21/19 00:00 Intake Total 990 ml Output Total 475 ml Balance 515 ml Intake Oral 990 ml Output Urine Total 475 ml # Voids 1 General: Alert, Oriented X3 HEENT: Atraumatic, EOMI Neck: Supple, No JVD, No Thyromegaly Lungs: Clear to Auscultation, Normal Air Movement Heart: Regular Rate, Normal S1, Normal S2, No Murmurs Abdomen: Normal Bowel Sounds, Soft, No Tenderness, No Hepatosplenomegaly, No Masses Extremities: No Clubbing, No Tenderness/Swelling Skin: No Rashes, No Breakdown, No Significant Lesion Neuro: Normal Speech, Normal Tone, Sensation Intact Psych/Mental Status: Mental Status NL A/P-Cardiology Admission Diagnosis Spinal Stenosis Chest pain CAD HTN Assessment/Plan Spinal stenosis, slipped disc, status post L2-3 laminectomy done on July 20, 2019, back pain continues to improve. Chest pain, chronic stable angina, no further episodes of chest pain reported. Continue to monitor Coronary artery disease, history of CABG, multiple intervention the past, recent cardiac catheterization with drug-eluting stent deployment to the vein graft to the diagonal artery, had a patent GRACE to LAD with patent stent beyond the anastomosis in the LAD, small vessel disease otherwise done by Dr. Perez in [facility], currently back on Plavix. Continue to monitor Hypotension, probably secondary to pain medication and muscle relaxant, unable to tolerate any antihypertensive medication Sinus bradycardia, better at this time, off beta blockers. Hyperlipidemia, maintained on statin Generalized weakness, lower and upper extremity weakness, cervical spinal stenosis with slipped disc, s/p L 2-[address] Bhatt earlier this morning. Dementia Clinical Quality Measures DVT/VTE Risk/Contraindication: Risk Factor Score Per Nursin RFS Level Per Nursing on Admit: 4+=Very High CHRISTIANO DAVIS MD Aug 21, 2019 10:56
[2019-08-21] MEDS: BISACODYL 10 MG SUPP (DULCOLAX) PR SCH ×2 (16:29→19:54)
[2019-08-21 18:00] VITALS: BP 95/63
--- NOTE | 2019-08-21 18:00 | NUR ---
GOING ON THIRD DAY WITH NO BM AND MEDICATED WITH DULCOLAX SUPPOSITORY. LARGE RESULTS.
[2019-08-21] MEDS: DONEPEZIL 10 MG (ARICEPT) TAB PO SCH (19:52)
[2019-08-21] MEDS: TERAZOSIN 5 MG (HYTRIN) CAPSULE PO SCH (19:53)
[2019-08-21] MEDS: risperiDONE 0.25 MG (RisperDAL) TAB PO SCH (19:53)
[2019-08-22] MEDS: HYDROcodone/APAP 5 MG/325 MG (LORTAB) TAB PO PRN ×4 (04:36→21:03)
[2019-08-22 05:08] VITALS: BP 109/73
[2019-08-22 05:38] LABS: BASOPHILS # (AUTO) 0.1 10^3/uL (0.0-0.1); BASOPHILS % (AUTO) 1 % (0-10); EOSINOPHILS # (AUTO) 0.1 10^3/uL (0.0-0.3); EOSINOPHILS % (AUTO) 2 % (0-10); HEMATOCRIT 40 % (40-54); LYMPHOCYTES # (AUTO) 1.4 X 10^3 (1.0-4.0); LYMPHOCYTES % (AUTO) 21 % (12-44); MEAN CORPUSCULAR HEMOGLOBIN 30 PG (25-34); MEAN CORPUSCULAR HGB CONC 33 G/DL (32-36); MEAN CORPUSCULAR VOLUME 93 FL (80-99); MEAN PLATELET VOLUME 9.2 FL (7.4-10.4); MONOCYTES # (AUTO) 0.8 X 10^3 (0.0-1.0); MONOCYTES % (AUTO) 12 % (0-12); NEUTROPHILS # (AUTO) 4.2 X 10^3 (1.8-7.8); NEUTROPHILS % (AUTO) 64 % (42-75); PLATELET COUNT 411 10^3/uL (130-400); WHITE BLOOD COUNT 6.6 10^3/uL (4.3-11.0)
[2019-08-22 05:57] LABS: ALANINE AMINOTRANSFERASE 19 U/L (0-55); ALBUMIN 3.2 GM/DL (3.2-4.5); ALKALINE PHOSPHATASE 95 U/L (40-136); BILIRUBIN,TOTAL 0.3 MG/DL (0.1-1.0); BUN/CREATININE RATIO 19; CALCIUM 8.7 MG/DL (8.5-10.1); CARBON DIOXIDE 21 MMOL/L (21-32); CHLORIDE 106 MMOL/L (98-107); CREATININE SERUM 0.83 MG/DL (0.60-1.30); GFR ESTIMATED > 60; GLUCOSE 99 MG/DL (70-105); POTASSIUM 4.2 MMOL/L (3.6-5.0); SODIUM 139 MMOL/L (135-145); TOTAL PROTEIN 5.5 GM/DL (6.4-8.2)
[2019-08-22] MEDS: LACTOBACILLUS ACIDOPHILUS (PROBIOTIC) CAPSULE PO SCH ×3 (06:03→17:00)
[2019-08-22] MEDS: PANTOPRAZOLE 40 MG (PROTONIX) TAB PO SCH (06:03)
--- NOTE | 2019-08-22 08:31 | Cardiology Progress Note ---
Subjective Date Seen by Provider: Aug 22, 2019 Time Seen by Provider: 08:05 Subjective/Events-last exam Patient with OT, no new complaints. Continues to have back pain. Denies any chest pain or dyspnea. Review of Systems General: No Chills, No Night Sweats, No Fatigue, No Malaise, No Appetite, No Other HEENT: No Head Aches, No Visual Changes, No Eye Pain, No Ear Pain, No Dysphasia, No Sinus Congestion, No Post Nasal Drip, No Sore Throat, No Other Pulmonary: No Dyspnea, No Cough, No Pleuritic Chest Pain, No Other Cardiovascular: No: Chest Pain, Palpitations, Orthopnea, Paroxysmal Noc. Dyspnea, Edema, Lt Headedness, Other Objective-Cardiology Exam Last Set of Vital Signs Vital Signs 08/22/19 08/22/19 05:08 08:00 Temp 36.4 Pulse 84 Resp 16 B/P (MAP) 109/73 (85) Pulse Ox 93 O2 Delivery Room Air Capillary Refill : Less Than 3 Seconds I&O Intake and Output 08/22/19 00:00 Intake Total 900 ml Output Total 775 ml Balance 125 ml Intake Oral 900 ml Output Urine Total 775 ml # Voids 3 # Bowel Movements 1 General: Alert, Oriented X3 HEENT: Atraumatic, EOMI Neck: Supple, No JVD, No Thyromegaly Lungs: Clear to Auscultation, Normal Air Movement Heart: Regular Rate, Normal S1, Normal S2, No Murmurs Abdomen: Normal Bowel Sounds, Soft, No Tenderness, No Hepatosplenomegaly, No Masses Extremities: No Clubbing, No Tenderness/Swelling Skin: No Rashes, No Breakdown, No Significant Lesion Neuro: Normal Speech, Normal Tone, Sensation Intact Psych/Mental Status: Mental Status NL Results Lab Laboratory Tests 08/22/19 04:35 A/P-Cardiology Admission Diagnosis Spinal Stenosis Chest pain CAD HTN Assessment/Plan Spinal stenosis, slipped disc, status post L2-3 laminectomy done on July 20, 2019, back pain improving. Chest pain, chronic stable angina, no further episodes of chest pain reported. Continue to monitor Coronary artery disease, history of CABG, multiple intervention the past, recent cardiac catheterization with drug-eluting stent deployment to the vein graft to the diagonal artery, had a patent GRACE to LAD with patent stent beyond the anastomosis in the LAD, small vessel disease otherwise done by Dr. Perez in [facility], currently back on Plavix. Continue to monitor Hypotension, probably secondary to pain medication and muscle relaxant, unable to tolerate any antihypertensive medication at this time, continue to monitor. Sinus bradycardia, better at this time, off beta blockers. Hyperlipidemia, maintained on statin Generalized weakness, lower and upper extremity weakness, cervical spinal sten osis with slipped disc, s/p L 2-[address] Bhatt. Dementia Patient was seen and evaluated with Jill, examination performed, management plan was discussed, agree with the current scribed note, I made few changes to the note using Italic font Patient is sitting in a wheelchair, receiving therapy Still borderline hypotensive, not receiving any blood pressure medication Lungs were clear to auscultation heart is regular. Clinical Quality Measures DVT/VTE Risk/Contraindication: Risk Factor Score Per Nursin RFS Level Per Nursing on Admit: 4+=Very High Supervisory-Addendum Brief Supervisory Addendum Participated in pt care: history, MDM, physical Personally performed: exam, history, MDM Care discussed with: JILL BRICE Aug 22, 2019 8:31 am CHRISTIANO DAVIS MD Aug 22, 2019 11:01 am
--- NOTE | 2019-08-22 08:54 | Occupational Ther Daily Note ---
OT Current Status-Daily Note Subjective Pt laying in bed at start of OT session. Pt agreed to OT tx focusing on ADLs this AM. Pt did not report any pain during tx, but did state that if he is up in the w/c too long, it causes his back to hurt. ADL-Treatment Therapy Code Descriptions/Definitions Functional [place] Measure: 0=Not Assessed/NA 4=Minimal Assistance 1=Total Assistance 5=Supervision or Setup 2=Maximal Assistance 6=Modified [place] 3=Moderate Assistance 7=Complete IndependenceSCALE: Activities may be completed with or without assistive devices. 8-Kuciorllzk-dkwysjt completes the activity by him/herself with no assistance from a helper. 5-Set-up or Clean-up Assistance-helper sets up or cleans up; patient completes activity. [place] assists only prior to or following the activity. 4-Supervision or Touching Assistance-helper provides verbal cues and/or touching/steadying and/or contact guard assistance as patient completes activity. Assistance may be provided throughout the activity or intermittently. 3-Partial/Moderate Assistance-helper does LESS THAN HALF the effort. [place] lifts, holds or supports trunk or limbs, but provides less than half the effort. 2-Substantial/Maximal Assistance-helper does MORE THAN HALF the effort. [place] lifts or holds trunk or limbs and provides more than half the effort. 9-Vrswqejqr-japoya does ALL the effort. Patient does none of the effort to complete the activity. Or, the assistance of 2 or more helpers is required for the patient to complete the activity. If activity was not attempted, code reason: 7-Patient Refused. 9-Not Applicable-not attempted and the patient did not perform the activity before the current illness, exacerbation or injury. 10-Not Attempted due to Environmental Limitations-(lack of equipment, weather restraints, etc.). 88-Not Attempted due to Medical Conditions or Safety Concerns. Oral Hygiene (QC): 6 (Seated in w/c at sink.) Bathing Location: L Arm, R Arm, L Upper Leg, R Upper Leg, L Lower Leg (including foot), R Lower Leg (including foot), Chest, Abdomen, Perineal Area Shower/Bathe Self (QC): 3 (Pt able to wash all parts of body including buttocks using side leans. Pt required assistance with buttocks for thoroughness.) Upper Body Dressing (QC): 5 (Set up of shirt.) Lower Body Dressing (QC): 2 (Pt attempted to thread BLE into underwear, required assistance due to threading both feet into same leg hole. Pt was able to correctly thread BLE into pants. Required assistance managing pants/underwear up as pt stood at FWW.) Other Treatment Pt laying in bed at start of session. Transferred supine to sit with SBA and then Mod A sit to stand. Pt ambulated to shower using FWW with min A for balance. Pt completed showering and dressing, nursing present to change pt's d ressing post shower. Pt then transferred from shower chair to w/c using FWW. Pt completed grooming tasks seated in w/c at sink level (shaving, oral hygiene, hair brushing). Pt then transferred from w/c to bed with Mod A sit to stand, Min A for balance during transfer using FWW. Pt transferred sit to supine SBA (did not require assist with RLE today). Pt's nurse brought pt his meds. Pt then completed x20 credentialing specialist squeezes with credentialing specialist sponge BUE. Post OT session, pt laying in bed, call light in reach and all needs met. Education OT Patient Education: Correct positioning, Energy conservation, Exercise progra m, Modified ADL techniques, Progress toward Goal/Update tx plan, Purpose of tx/functional activities, Transfer techniques Teaching Recipient: Health Care Proxy Teaching Methods: Demonstration Response to Teaching: Verbalize Understanding OT Short Term Goals Short Term Goals Lower Body Dressing(FIM): 3 Toilet/Commode Transfer(FIM): 3 Additional Short Term Goals: 1-Demonstrate ADL Tasks, 2-Verbalize Understanding, 3-ImproveStrength/Jesus Alberto 1=Demonstrate adherence to instructed precautions during ADL tasks. 2=Patient will verbalize/demonstrate understanding of assistive devices/modifications for ADL. 3=Patient will improve strength/tolerance for activity to enable patient to perform ADL's. OT Prison Goals Decorator Inspector Goals Eating (QC): 6 (met) Oral Hygiene (QC): 6 (met) Shower/Bathe Self (QC): 6 (not met) Upper Body Dressing (QC): 6 (not met) Lower Body Dressing (QC): 5 (not met) On/Off Footwear (QC): 6 (met) Toileting Hygiene (QC): 5 (not met) Toilet/Commode Transfer (QC): 5 (not met) Additional Goals: 1-Demonstrate ADL Tasks, 2-Verbalize Understanding, 3- ImproveStrength/Jesus Alberto 1=Demonstrate adherence to instructed precautions during ADL tasks. 2=Patient will verbalize/demonstrate understanding of assistive devices/modifications for ADL. 3=Patient will improve strength/tolerance for activity to enable patient to perform ADL's. OT Education/Plan Problem List/Assessment Assessment: Decreased Activ Tolerance, Decreased UE Strength, Impaired Funct Balance, Impaired I ADL's, Impaired Self-Care Skills Discharge Recommendations Plan/Recommendations: Continue POC Treatment Plan/Plan of Care Patient would benefit from OT for education, treatment and training to promote independence in ADL's, mobility, safety and/or upper extremity function for ADL's. Plan of Care: ADL Retraining, Caregiver Training, Concurrent Therapy, Functional Mobility, Group Exercise/Act as Ind, UE Funct Exercise/Act Treatment Duration: Jul 27, 2019 Frequency: At least 5 of 7 days/Wk (IRF) Estimated Hrs Per Day: 1.5 hours per day Agreement: Yes Rehab Potential: Fair Time/GCodes Start Time: 08:00 Stop Time: 09:15 Total Time Billed (hr/min): 75 Billed Treatment Time 1, ADL 4 [id number], EX [id number]. RACHID GONZALES OT Aug 22, 2019 08:54
--- NOTE | 2019-08-22 08:59 | PM&R Progress Note ---
Subjective HPI/CC On Admission Date Seen by Provider: Aug 22, 2019 Time Seen by Provider: 08:30 CC: Cervical spine injury non-traumatic HPI: This is a 78yoWM who presented to the Hospital with significant compromise in function, was found to have significant cervical spine stenosis causing generalized weakness globally, that was complicated with delirium post- operatively in addition to a UTI diagnosis. Pt previously doctored with Dr. Tyler Danielson and did not see a regular morphology teacher although he has had Bypass surgery and has known CAD. Pt was doing well but had a lengthy acute care course and is in need of significant rehabilitation, prior to returning home. He seems to be very depressed, very tearful when I meet him and reports that he is about to turn 79 next month. I have tried to reassure him and I have put in a behavioral health consult in for him because of obvious tearfulness and overwhelmed feeling and loss of independence that he will need to be aggressively treated for in order to return home safely. Previously he used a walker for the past 6 months prior to admission, had lumbar spine surgery then was discharged home and home PT Collette Ramos evaluated the Pt to have such severe weakness that he was total care so he was sent to the ER for workup and from there thing progressed into cervical spine MRI showing severe stenosis and Dr. Bhatt performed surgery with good results but was so severe it was a dural tear during the surgery and he has become quite debilitated. He is urinating well, hasn't had a BM in several days so will need to work on that when he is admitted into the inpatient rehab unit. Overall he will be aggressively treated in order to re-gain his independence in order to return home. Subjective/Events-last exam Pt doing pretty well Taking his shower currently Walked to the bathroom Pain meds are given Yellow slough on the wound No evidence of any erythema Drainage continues but less and less Bowels are moving Check meds and labs Reviewed therapy notes Conferred with shuttler of Systems General: Fatigue Musculoskeletal: back pain Objective Exam Vital Signs Vital Signs Date Time Temp Pulse Resp B/P (MAP) Pulse Ox O2 Delivery O2 Flow Rate FiO2 08/22/19 17:40 37.2 82 18 145/79 (101) 96 Room Air Capillary Refill : Less Than 3 Seconds General Appearance: No Apparent Distress, WD/WN, Chronically ill HEENT: PERRL/EOMI, Normal ENT Inspection, Pharynx Normal, Moist Mucous Me mbranes Neck: Full Range of Motion, Normal Inspection, Non Tender, Supple Respiratory: Chest Non Tender, Lungs Clear, Normal Breath Sounds, No Accessory Muscle Use, No Respiratory Distress Cardiovascular: Regular Rate, Rhythm, No Gallop, No Murmur Gastrointestinal: Normal Bowel Sounds, No Organomegaly, No Pulsatile Mass, Non Tender, Soft Back: Normal Inspection, No CVA Tenderness, Decreased Range of Motion (much improved today) Extremity: Normal Capillary Refill, Normal Inspection, Normal Range of Motion, Non Tender, No Calf Tenderness, No Pedal Edema Neurologic/Psychiatric: Alert, Oriented x3, Normal Mood/Affect, fine hairer II-XII Norm as Tested, Motor Weakness Skin: Normal Color, Warm/Dry Lymphatic: No Adenopathy Results/Procedures Lab Laboratory Tests 08/22/19 04:35 Patient resulted labs reviewed. FIM Transfers Therapy Code Descriptions/Definitions Functional Alexis Measure: 0=Not Assessed/NA 4=Minimal Assistance 1=Total Assistance 5=Supervision or Setup 2=Maximal Assistance 6=Modified Alexis 3=Moderate Assistance 7=Complete IndependenceSCALE: Activities may be completed with or without assistive devices. 4-Jowmcmayqq-tskefwk completes the activity by him/herself with no assistance from a helper. 5-Set-up or Clean-up Assistance-helper sets up or cleans up; patient completes activity. [place] assists only prior to or following the activity. 4-Supervision or Touching Assistance-helper provides verbal cues and/or touching/steadying and/or contact guard assistance as patient completes activity. Assistance may be provided throughout the activity or intermittently. 3-Partial/Moderate Assistance-helper does LESS THAN HALF the effort. [place] lifts, holds or supports trunk or limbs, but provides less than half the effort. 2-Substantial/Maximal Assistance-helper does MORE THAN HALF the effort. [place] lifts or holds trunk or limbs and provides more than half the effort. 6-Pmgyihkxi-tkskwu does ALL the effort. Patient does none of the effort to complete the activity. Or, the assistance of 2 or more helpers is required for the patient to complete the activity. If activity was not attempted, code reason: 7-Patient Refused. 9-Not Applicable-not attempted and the patient did not perform the activity before the current illness, exacerbation or injury. 10-Not Attempted due to Environmental Limitations-(lack of equipment, weather restraints, etc.). 88-Not Attempted due to Medical Conditions or Safety Concerns. Transfers (B, C, W/C) (FIM): 3 Roll Left to Right (QC): 6 Sit to Lying (QC): 3 (Olu for RLE into bed) Sit to Stand (QC): 3 (Pt started Olu and with fatigue required more assist up to modA) Chair/Bhw-dx-Ynjap Xfer(QC): 3 (Olu-CGA stand pivot with FWW) Bed to/from Chair: 5 Car Transfer (QC): 3 (Olu with slide board) Gait Training Does the Patient Walk?: Yes Gait (FIM): 8 (x4 in //bars) Distance: 36',40', 20' Walk 10 feet (QC): 4 (CGA) Walk 50 ft with 2 Turns(QC): 88 Walk 150 ft (QC): 88 Walking 10ft/uneven surface-QC: 88 Gait Persons Needed: 1 Gait Assistive Device: FWW Wheelchair Training Does the Pt Use a Wheelchair?: Yes Wheelchair (FIM): 1 Wheelchair Distance: 3=150 ft Distance: 50' x2 Wheel 50 ft with 2 turns (QC): 6 Wheel 150 ft (QC): 6 Type of Wheelchair: Manual Stair Training 1 Step (curb) (QC): 88 4 Steps (QC): 88 12 Steps (QC): 88 Balance Picking up an Object (QC): 88 ADL-Treatment Eating (QC): 6 (Pt finishing eggs at start of session. Pt reports he was able to open container by himself and did not require any assistance for task.) Groomin (Pt brushed hair at bed level, he was able to gather hair brush from side table and complete task without assistance.) Oral Hygiene (QC): 6 (Seated in w/c at sink.) Bathing Location: L Arm, R Arm, L Upper Leg, R Upper Leg, L Lower Leg (including foot), R Lower Leg (including foot), Chest, Abdomen, Perineal Area Shower/Bathe Self (QC): 3 (Pt able to wash all parts of body including buttocks using side leans. Pt required assistance with buttocks for thoroughness.) Upper Body Dressing (QC): 5 (Set up of shirt.) Lower Body Dressing (QC): 2 (Pt attempted to thread BLE into underwear, required assistance due to threading both feet into same leg hole. Pt was able to correctly thread BLE into pants. Required assistance managing pants/underwear up as pt stood at FWW.) On/Off Footwear (QC): 2 (OT educated pt on using sock aid to don socks. OT assisted pt with doffing socks, & demo'd use of sock aid. Pt able to don sock on left foot using sock aid, required assistance with right foot secondary to dressing on heel of foot) Toileting Hygiene (QC): 7 (Pt declined attempt to toilet stating he does not transfer to the toilet. When he needs to go to the bathroom, he just goes in the bed. Based on LB dressing and shower, pt would require assitance with managing the clothing up/down and hygiene for task.) Toilet Transfer (QC): 7 (Pt reported he does not use the toilet, declined attempt to transfer to toilet on this date. Pt reports if he needs to use the toilet he just goes in the bed.) Assessment/Plan Assessment and Plan Assess & Plan/Chief Complaint Assessment: Spinal cord trauma from severe stenosis Debility CAD Delirium now resolved s/p UTI completed treatment recurrent type Constipation related to surgery HTN HLP Cognitive deficit SLUMS Depression w/tearfulness Bladder incontinence improved on Dr Yasmeen cash Bowel incontinence improved now Plan: Monitor bowel and bladder incontinence IRF protocol Increase strength with IRF protocols BM regimen to hold due to loose stools Started antidepressant Monitor BP and holding most BP meds Dr Arana consultation is appreciated NH this week (1) Spinal cord injury (2) Generalized Weakness (3) Cervical spinal stenosis Status: Acute (4) Neuroforaminal stenosis of spine Status: Acute (5) Essential (primary) hypertension Status: Chronic (6) Lumbar spinal stenosis Status: Acute (7) Slipped intervertebral disc Status: Acute (8) Delirium Status: Acute (9) Incidental durotomy Status: Acute (10) CAD (coronary artery disease) Status: Chronic YANETH REEDER DO Aug 22, 2019 08:59 POS
[2019-08-22] MEDS: POLYETHYLENE GLYCOL 17 GM (MIRALAX) PACK PO SCH ×2 (09:00→20:40)
--- NOTE | 2019-08-22 09:00 | NUR ---
Pt was up to shower/shave/dress. Bed change done. Pt dressing to back is changed. Slight drainage noted/Silver Alginate with island dressing placed today. Drainage has no odor/Pt to bed with assist of PT. Pt tolerates activity. Continues to be very short of breath with activity. Pt given pain medications early am for pain in back.
[2019-08-22] MEDS: DULoxetine 30 MG (CYMBALTA) CAP PO SCH (09:01)
[2019-08-22] MEDS: LORATADINE (CLARITIN) 10 MG TAB PO SCH (09:01)
[2019-08-22] MEDS: TOLTERODINE LA 4 MG (DETROL) CAP PO SCH ×2 (09:01→20:39)
[2019-08-22] MEDS: CLOPIDOGREL 75 MG (PLAVIX) TABLET PO SCH (09:03)
[2019-08-22] MEDS: ASPIRIN E.C. 81 MG (ECOTRIN) TAB PO SCH (09:03)
[2019-08-22] MEDS: DOCUSATE CALCIUM 240 MG (SURFAK) CAP PO SCH ×2 (09:05→20:39)
[2019-08-22] MEDS: SENNA W/DOCUSATE (SENOKOT S) TABLET PO SCH ×2 (09:11→20:39)
[2019-08-22] MEDS: BACITRACIN OINTMENT 28 GM TUBE TOP SCH ×2 (09:12→20:42)
[2019-08-22] MEDS: BISACODYL 10 MG SUPP (DULCOLAX) PR SCH ×2 (09:12→20:41)
--- NOTE | 2019-08-22 09:55 | Progress Note ---
PATRICKNIDIA SANCHEZ [facility] 08/22/19 0955: Progress Note CC: Post Lumbar Laminectomy, Cervical stenosis * He reports using a walker for the first time last week * He states he was able to walk up and down in the PT room 4x * He states his strength in his legs has gotten much better * He does have some back pain still when he is in the recliner and wheelchair * He states he can sit up at the edge of the bed * He states he is able to sit on the toilet and get up from it with a little assistance * The nursing staff reported he did not want to get out of bed at all this weekend however after he had made progress last week * He stated he was likely going to a [facility] this week and hoped to gain a little more strength before he goes * He has made significant progress being in the rehab unit as he was wheelchair bound upon entering * He has likely reached his new baseline in functionality that appears to be motivationally driven at times\ Discharge likely Thursday after discussion at team meeting and [facility] facility finalization ADENIKE REEDER DO 08/22/192025: Supervisory-Addendum Brief Verification & Attestation Participated in pt care: history, MDM, physical Personally performed: exam, history, MDM, supervision of care Care discussed with: Medical Student Procedures: n/a Results interpretation: Verified all documentation Verification and Attestation of Medical Student E/M Service A medical student performed and documented this service in my presence. I reviewed and verified all information documented by the medical student and made modifications to such information, when appropriate. I personally performed the physical exam and medical decision making. Adenike Reeder, Aug 22, 2019,20:26 [facility] Aug 22, 2019 09:55 ADENIKE DAILEY DO Aug 22, 2019 20:26 POS
--- NOTE | 2019-08-22 10:31 | Physical Therapy Rehab Re-Cert ---
PT Re-Certification Form Physical Therapy Treatment Plan: Modify Plan, see comments Bed Mobility, Education, Functional Activity Jesus Alberto, Functional Strength, Group Therapy, Gait, Safety, Therapeutic Exercise, Transfers Treatment Duration: 3 weeks Frequency: At least 5 of 7 days/Wk (IRF) Estimated Hrs Per Day: 1.5 hours per day Patient and/or Family Agrees t: Yes Rehab Potential: Fair Include in LTG ambulate 150' with a rolling walker with CGA (including 50' with at least 2 turns of 90 degrees and 10' over an uneven surface). PT Short Term Goals Short Term Goals Time Frame: Aug 02, 2019 Wheelchair Distance: 50' x2 PT Drafter Castings Goals Custodial Goals PT Drafter Castings Goals Time Frame: Aug 16, 2019 ALANA CISNEROS PT Aug 22, 2019 10:31
--- NOTE | 2019-08-22 10:40 | Occ Therapy Rehab Re-Cert ---
OT Re-Certification Form Plan of Care: ADL Retraining, Caregiver Training, Concurrent Therapy, Functional Mobility, Group Exercise/Act as Ind, UE Funct Exercise/Act, W/C Management Training Treatment Duration: August Frequency: At least 5 of 7 days/Wk (IRF) Estimated Hrs Per Day: 1.5 hours per day Agreement: Yes Rehab Potential: Fair OT Short Term Goals Short Term Goals Upper Body Dressing(FIM): 4 Lower Body Dressing(FIM): 4 Toilet/Commode Transfer(FIM): 4 Additional Short Term Goals: 1-Demonstrate ADL Tasks, 2-Verbalize Understanding, 3-ImproveStrength/Jesus Alberto 1=Demonstrate adherence to instructed precautions during ADL tasks. 2=Patient will verbalize/demonstrate understanding of assistive devices/modifications for ADL. 3=Patient will improve strength/tolerance for activity to enable patient to perform ADL's. OT Senior Living Goals Senior Living Goals Time Frame: Sep 13, 2019 Additional Goals: 1-Demonstrate ADL Tasks, 2-Verbalize Understanding, 3- ImproveStrength/Jesus Alberto 1=Demonstrate adherence to instructed precautions during ADL tasks. 2=Patient will verbalize/demonstrate understanding of assistive devices/modifications for ADL. 3=Patient will improve strength/tolerance for activity to enable patient to perform ADL's. QC's: LTG Shower/Bathe Self: 6 Upper Body dressin Lower Body dressin Toileting Hygiene: 6 Toilet/Commode Transfer: 4 Qc's goals met: continue Feedin Oral hygiene: 6 On/off footwear: 6 GAYLE NOEL OTR Aug 22, 2019 10:40
--- NOTE | 2019-08-22 10:54 | Physical Therapy Daily Note ---
PT Daily Note-Current Subjective Pt in bed pre-tx. Pt agrees to PT this morning. Pt reports 5/10 pain in the low back and states he feels like it is getting alot better. Appearance Pt in WC post-tx with pillows behind back and under feet for comfort. This PT explained risks associated with adjunct faculty for medical terminology laying in bed and requested pt stay up in the chair atleast until PT is back. Pt has room phone, nurse call light, and tray table in reach with all needs met. Mental Status Patient Orientation: Person, Place, Time, Situation Transfers SCALE: Activities may be completed with or without assistive devices. 5-Agylbmbwjx-kjhywxz completes the activity by him/herself with no assistance from a helper. 5-Set-up or Clean-up Assistance-helper sets up or cleans up; patient completes activity. [place] assists only prior to or following the activity. 4-Supervision or Touching Assistance-helper provides verbal cues and/or touching/steadying and/or contact guard assistance as patient completes activity. Assistance may be provided throughout the activity or intermittently. 3-Partial/Moderate Assistance-helper does LESS THAN HALF the effort. [place] lifts, holds or supports trunk or limbs, but provides less than half the effort. 2-Substantial/Maximal Assistance-helper does MORE THAN HALF the effort. [place] lifts or holds trunk or limbs and provides more than half the effort. 1-Ntucwvzsh-fjkkmq does ALL the effort. Patient does none of the effort to complete the activity. Or, the assistance of 2 or more helpers is required for the patient to complete the activity. If activity was not attempted, code reason: 7-Patient Refused. 9-Not Applicable-not attempted and the patient did not perform the activity before the current illness, exacerbation or injury. 10-Not Attempted due to Environmental Limitations-(lack of equipment, weather restraints, etc.). 88-Not Attempted due to Medical Conditions or Safety Concerns. Roll Left to Right (QC): 4 (SBA) Sit to Stand (QC): 3 (Olu as pt fatigued and when standing from nustep with farther back arm rests. Pt was CGA for all other sit to stands before this point.) Weight Bearing Right Lower Extremity: Right Weight Bearing/Tolerated Left Lower Extremity: Left Weight Bearing/Tolerated Gait Training Does the Patient Walk?: Yes Distance: 96' 52', 30' Walk 10 feet (QC): 4 (CGA) Walk 50 ft with 2 Turns(QC): 4 (CGA) Gait Assistive Device: FWW Pt continues to fatigue quickly and self limit distances but is able to take 10sec standing breaks to catch his breath and continue. Wheelchair Training Does the Pt Use a Wheelchair?: Yes Wheelchair Distance: 3=150 ft Wheel 50 ft with 2 turns (QC): 6 Wheel 150 ft (QC): 6 Type of Wheelchair: Manual Exercises Seated Therapy Exercises: Ankle pumps, Hip flexion Seated Reps: 20 NuStep Minutes: 10 NuStep Workload: 4 Treatments Pt performed seated LE strengthening ex, skilled ambulation training, skilled wheelchair training, endurance training, and education this date. Assessment Current Status: Good Progress Pt continues to ambulate farther distances without requiring seated breaks. Pt is requiring decreased time for seated breaks to recover inbetween ambulation sets. PT Short Term Goals Short Term Goals Time Frame: Aug 02, 2019 Wheelchair Distance: 50' x2 PT Detention Goals Detention Goals PT Silver Chaser Goals Time Frame: Aug 16, 2019 Sit to Lying (QC): 3 (Olu) Lying-Sitting on Side/Bed(QC): 3 (Kofi) Sit to Stand (QC): 1 Roll Left to Right (QC): 3 (Olu) Chair/Bho-sh-Hovyd Xfer(QC): 3 (Olu) Car Transfer (QC): 1 Walk 10 feet (QC): 88 Walk 10ft-Uneven Surface(QC): 88 Walk 50ft with 2 Turns (QC): 88 Walk 150 ft (QC): 88 Wheel 50 feet with 2 turns (QC: 5 1 Step (curb) (QC): 88 4 Steps (QC): 88 12 Steps (QC): 88 Picking up an Object (QC): 88 PT Plan Problem List Problem List: Activity Tolerance, Functional Strength, Safety, Balance, Gait, Transfer, Bed Mobility Treatment/Plan Treatment Plan: Continue Plan of Care Treatment Plan: Bed Mobility, Education, Functional Activity Jesus Alberto, Functional Strength, Group Therapy, Gait, Safety, Therapeutic Exercise, Transfers Treatment Duration: Aug 16, 2019 Frequency: At least 5 of 7 days/Wk (IRF) Estimated Hrs Per Day: 1.5 hours per day Patient and/or Family Agrees t: Yes Safety Risks/Education Patient Education: Gait Training, Transfer Techniques, Correct Positioning, Safety Issues Teaching Recipient: Patient Teaching Methods: Demonstration, Discussion Response to Teaching: Verbalize Understanding, Return Demonstration, Reinforcement Needed Time/GCodes Time In: 1000 Time Out: 1100 Total Billed Treatment Time: 60 Total Billed Treatment 1 visit FA 15' GT 45' ALANA CISNEROS PT Aug 22, 2019 10:54
--- NOTE | 2019-08-22 13:09 | Physical Therapy Daily Note ---
PT Daily Note-Current Subjective pt in bed pre tx. Pt agrees to PT this afternoon. pt reports no change in pain since last session. Appearance pt in bed post tx. pt with call light, room phone, and tray table in reach with all needs met at this time. Mental Status Patient Orientation: Person, Place, Time, Situation Transfers SCALE: Activities may be completed with or without assistive devices. 9-Wmrmlilfnb-iszfkrt completes the activity by him/herself with no assistance from a helper. 5-Set-up or Clean-up Assistance-helper sets up or cleans up; patient completes activity. [place] assists only prior to or following the activity. 4-Supervision or Touching Assistance-helper provides verbal cues and/or touching/steadying and/or contact guard assistance as patient completes activity. Assistance may be provided throughout the activity or intermittently. 3-Partial/Moderate Assistance-helper does LESS THAN HALF the effort. [place] lifts, holds or supports trunk or limbs, but provides less than half the effort. 2-Substantial/Maximal Assistance-helper does MORE THAN HALF the effort. [place] lifts or holds trunk or limbs and provides more than half the effort. 1-Aurtgqqbj-rkuchk does ALL the effort. Patient does none of the effort to complete the activity. Or, the assistance of 2 or more helpers is required for the patient to complete the activity. If activity was not attempted, code reason: 7-Patient Refused. 9-Not Applicable-not attempted and the patient did not perform the activity before the current illness, exacerbation or injury. 10-Not Attempted due to Environmental Limitations-(lack of equipment, weather restraints, etc.). 88-Not Attempted due to Medical Conditions or Safety Concerns. Roll Left to Right (QC): 6 Sit to Lying (QC): 4 (SBA. Pt was able to get B/L LE into bed without assist this date.) Sit to Stand (QC): 3 (Olu. pt has 1 stand that requires Olu for sit to stand which was from a straight back chair with lower surface. Pt was CGA for all other sit to stands.) Weight Bearing Right Lower Extremity: Right Weight Bearing/Tolerated Left Lower Extremity: Left Weight Bearing/Tolerated Exercises Standing: Hip Abduction, Heel/toe raises, Marching, Sit to Stand (4 stands) Standing Reps: 20 (2sets of 10reps) Treatments Pt performed LE strengthening, functional transfer training, LE functional endurance training, bed mobility, and education this date. Assessment Current Status: Good Progress Pt requires no assist for raising B/L LE into bed this date. Pt able to stand and do a full round of exercise this date for 2 sets. This PT instructed pt that he needs to get into WC for meals at this point. PT educated on the benefits of getting out of bed for respiratory and integumentary systems and RN notified. PT Short Term Goals Short Term Goals Time Frame: Aug 02, 2019 Wheelchair Distance: 50' x2 PT Inverter And Clipper Goals [facility] Goals PT Inverter And Clipper Goals Time Frame: Aug 16, 2019 Sit to Lying (QC): 3 (Oul) Lying-Sitting on Side/Bed(QC): 3 (Kofi) Sit to Stand (QC): 1 Roll Left to Right (QC): 3 (Olu) Chair/Run-lj-Wqfbk Xfer(QC): 3 (Olu) Car Transfer (QC): 1 Walk 10 feet (QC): 88 Walk 10ft-Uneven Surface(QC): 88 Walk 50ft with 2 Turns (QC): 88 Walk 150 ft (QC): 88 Wheel 50 feet with 2 turns (QC: 5 1 Step (curb) (QC): 88 4 Steps (QC): 88 12 Steps (QC): 88 Picking up an Object (QC): 88 PT Plan Problem List Problem List: Activity Tolerance, Functional Strength, Safety, Balance, Gait, Transfer, Bed Mobility, ROM Treatment/Plan Treatment Plan: Continue Plan of Care Treatment Plan: Bed Mobility, Education, Functional Activity Jesus Alberto, Functional Strength, Group Therapy, Gait, Safety, Therapeutic Exercise, Transfers Treatment Duration: Aug 16, 2019 Frequency: At least 5 of 7 days/Wk (IRF) Estimated Hrs Per Day: 1.5 hours per day Patient and/or Family Agrees t: Yes Safety Risks/Education Patient Education: Gait Training, Transfer Techniques, Correct Positioning, Safety Issues Teaching Recipient: Patient Teaching Methods: Demonstration, Discussion Response to Teaching: Verbalize Understanding, Return Demonstration, Reinforcement Needed Time/GCodes Time In: 1245 Time Out: 1305 Total Billed Treatment Time: 20 Total Billed Treatment 1 visit FA 20' SNEHA ODONNELL PT Aug 22, 2019 13:09 POS
--- NOTE | 2019-08-22 14:49 | Speech Therapy Daily Note ---
Speech Daily Progress Note Subjective Date Seen by Provider: Aug 22, 2019 Time Seen by Provider: 00:30 Patient sitting up in his wheelchair watching television when I entered his room. Patient stated he's feeling much better, however he also stated he is still having to take quite a bit of pain medications. Objective Patient demonstrated safety awareness at 90% with 10% verbal cuing. Assessment Assessment Current Status: Good Progress Treatment Plan Continue Plan of Care Speech Short Term Goals Short Term Goals Short Term Goals 1) Patient will complete memory tasks related to his daily needs at 90% or greater, independently. 2) Patient will complete problem solving tasks related to his daily needs at 90% or greater, independently. 3) Patient will complete safety awareness tasks related to his daily needs at 90% or greater, independently. Speech Prison Goals Chronic Condition Nurse Goals Patient will improve cognitive-communication necessary for safety and daily living tasks with minimal assist. Speech-Plan Patient/Family Goals Patient/Family Goals: Patient will be inpatient for a few more days due to making progress with walking and transfers. Patient's goals is to not have to use the transfer board if he doesn't have to upon discharge. Treatment Plan Speech Therapy Treatment Plan: Continue Plan of Care Patient continues to progress with safety awareness goal. Treatment Duration: Aug 26, 2019 Frequency: 5 times per week Estimated Hrs Per Day: .5 hour per day Rehab Potential: Fair Barriers to Learning: Patient continues to have mild cognitive deficits. Pt/Family Agrees to Plan: Yes Safety Risks/Education Teaching Recipient: Patient Teaching Methods: Demonstration, Discussion Response to Teaching: Verbalize Understanding, Return Demonstration Education Topics Provided: Continued safety within his room and with daily needs. Time Speech Therapy Time In: 11:00 Speech Therapy Time Out: 11:30 Total Billed Time: 30 Billed Treatment Time [address] Aug 22, 2019 14:48 POS
--- NOTE | 2019-08-22 15:38 | NUR ---
Follow up visit for prayer and support. The pt said he continues to feel encouraged by his progress.
[2019-08-22 17:40] VITALS: BP 145/79
--- NOTE | 2019-08-22 18:39 | NUR ---
DRESSING CHANGE DONE ON BACK/ DRESSING SOAKED WITH SEROUSANGUINOS DISCHARGE/ SILVER ALGINATE AND ISLAND DRESSING PLACED.
[2019-08-22] MEDS: DONEPEZIL 10 MG (ARICEPT) TAB PO SCH (20:39)
[2019-08-22] MEDS: TERAZOSIN 5 MG (HYTRIN) CAPSULE PO SCH (20:39)
[2019-08-22] MEDS: risperiDONE 0.25 MG (RisperDAL) TAB PO SCH (20:39)
--- NOTE | 2019-08-22 21:00 | NUR ---
PLEASANT AND COOPERATIVE. ADMITS BEING TIRED AFTER THERAPY TODAY. CONTINUED BACK PAIN AT OPEN INCISIONAL SITE AND MEDICATED WITH LORTAB.
--- NOTE | 2019-08-23 05:00 | NUR ---
HAS DENIED NEED TO VOID TONIGHT UNTIL NOW AND VOIDED 150 CC. URINE IS DARK URINE AND PATIENT DID COMPLAIN OF BURNING WHEN VOIDING. BLADDER SCAN SHOWED 5 CC. DOES HAVE A HISTORY OF RECURRENT UTI'S. POOR INTAKE. ENCOURAGED FLUIDS AND WILL CONTINUE TO MONITOR OUTPUT.
[2019-08-23] MEDS: HYDROcodone/APAP 5 MG/325 MG (LORTAB) TAB PO PRN ×2 (05:46→20:26)
[2019-08-23 05:48] VITALS: BP 121/74
--- NOTE | 2019-08-23 06:30 | NUR ---
UP TO CHAIR FOR BREAKFAST BY 2 NURSES. TOLERATED FAIR.
[2019-08-23] MEDS: LACTOBACILLUS ACIDOPHILUS (PROBIOTIC) CAPSULE PO SCH ×3 (06:36→16:42)
[2019-08-23] MEDS: PANTOPRAZOLE 40 MG (PROTONIX) TAB PO SCH (06:36)
--- NOTE | 2019-08-23 07:34 | Occupational Ther Daily Note ---
OT Current Status-Daily Note Subjective Pt alert, sitting in w/c. Nrsg assisted pt to transfer into w/c from bed for breakfast. Pt agrees to therapy. Mental Status/Objective Patient Orientation: Person, Place, Time, Situation ADL-Treatment Pt declines shower and stated that he had already put on new clothes. Therapy Code Descriptions/Definitions Functional [place] Measure: 0=Not Assessed/NA 4=Minimal Assistance 1=Total Assistance 5=Supervision or Setup 2=Maximal Assistance 6=Modified [place] 3=Moderate Assistance 7=Complete IndependenceSCALE: Activities may be completed with or without assistive devices. 4-Jhjdvbxaqx-niivfop completes the activity by him/herself with no assistance from a helper. 5-Set-up or Clean-up Assistance-helper sets up or cleans up; patient completes activity. [place] assists only prior to or following the activity. 4-Supervision or Touching Assistance-helper provides verbal cues and/or touching/steadying and/or contact guard assistance as patient completes activity. Assistance may be provided throughout the activity or intermittently. 3-Partial/Moderate Assistance-helper does LESS THAN HALF the effort. [place] lifts, holds or supports trunk or limbs, but provides less than half the effort. 2-Substantial/Maximal Assistance-helper does MORE THAN HALF the effort. [place] lifts or holds trunk or limbs and provides more than half the effort. 9-Smojguztk-bfkjpm does ALL the effort. Patient does none of the effort to complete the activity. Or, the assistance of 2 or more helpers is required for the patient to complete the activity. If activity was not attempted, code reason: 7-Patient Refused. 9-Not Applicable-not attempted and the patient did not perform the activity before the current illness, exacerbation or injury. 10-Not Attempted due to Environmental Limitations-(lack of equipment, weather restraints, etc.). 88-Not Attempted due to Medical Conditions or Safety Concerns. Eating (QC): 6 (Dentures. Pt able to open containers/packages then uses regular utensils to eat.) Oral Hygiene (QC): 6 (Sitting at sink in w/c, pt completes independently.) Other Treatment Pt propelled w/c to therapy gym. Pt completed arm bike for 15 min at 15 coughlin resistance to increase activity tolerance and UE strengthening. Completed resistive clothespins with 1# wt attached to wrists, 25 each hand, to increase senior capital markets specialist/pinch and arm strength. After therapy, pt lying in bed with call light/phone in reach. All needs met in room. OT Short Term Goals Short Term Goals Upper Body Dressing(FIM): 4 Lower Body Dressing(FIM): 4 Toilet/Commode Transfer(FIM): 4 Additional Short Term Goals: 1-Demonstrate ADL Tasks, 2-Verbalize Understanding, 3-ImproveStrength/Jesus Alberto 1=Demonstrate adherence to instructed precautions during ADL tasks. 2=Patient will verbalize/demonstrate understanding of assistive devices/modifications for ADL. 3=Patient will improve strength/tolerance for activity to enable patient to perform ADL's. OT Electroplating Laborer Goals Nursing Home Goals Time Frame: Sep 13, 2019 Eating (QC): 6 (met) Oral Hygiene (QC): 6 (met) Shower/Bathe Self (QC): 6 (not met) Upper Body Dressing (QC): 6 (not met) Lower Body Dressing (QC): 5 (not met) On/Off Footwear (QC): 6 (met) Toileting Hygiene (QC): 5 (not met) Toilet/Commode Transfer (QC): 5 (not met) Additional Goals: 1-Demonstrate ADL Tasks, 2-Verbalize Understanding, 3- ImproveStrength/Jesus Alberto 1=Demonstrate adherence to instructed precautions during ADL tasks. 2=Patient will verbalize/demonstrate understanding of assistive devices/modifications for ADL. 3=Patient will improve strength/tolerance for activity to enable patient to perform ADL's. OT Education/Plan Problem List/Assessment Assessment: Decreased Activ Tolerance, Decreased UE Strength, Impaired Coordination, Impaired Self-Care Skills Discharge Recommendations Plan/Recommendations: Continue POC Treatment Plan/Plan of Care Patient would benefit from OT for education, treatment and training to promote independence in ADL's, mobility, safety and/or upper extremity function for ADL's. Plan of Care: ADL Retraining, Caregiver Training, Concurrent Therapy, F unctional Mobility, Group Exercise/Act as Ind, UE Funct Exercise/Act, W/C Management Training Treatment Duration: Jul 27, 2019 Frequency: At least 5 of 7 days/Wk (IRF) Estimated Hrs Per Day: 1.5 hours per day Agreement: Yes Rehab Potential: Fair Time/GCodes Start Time: 07:00 Stop Time: 08:15 Total Time Billed (hr/min): 75 Billed Treatment Time 1 visit-ADL 4 (45 min) EX 2 (30 min) SNEHA GARCIA Aug 23, 2019 07:34 POS
--- NOTE | 2019-08-23 08:08 | Cardiology Progress Note ---
Subjective Date Seen by Provider: Aug 23, 2019 Time Seen by Provider: 08:07 Subjective/Events-last exam Patient with PT, no new complaints. Back pain continues to improve. Objective-Cardiology Exam Last Set of Vital Signs Vital Signs 08/23/19 05:48 Temp 36.0 Pulse 73 Resp 18 B/P (MAP) 121/74 (90) Pulse Ox 97 O2 Delivery Room Air Capillary Refill : Less Than 3 Seconds I&O Intake and Output 08/23/19 00:00 Intake Total 780 ml Output Total 250 ml Balance 530 ml Intake Oral 780 ml Output Urine Total 250 ml # Voids 1 # Urine Diapers 1 General: Alert, Oriented X3 HEENT: Atraumatic, EOMI Neck: Supple, No JVD, No Thyromegaly Lungs: Clear to Auscultation, Normal Air Movement Heart: Regular Rate, Normal S1, Normal S2, No Murmurs Abdomen: Normal Bowel Sounds, Soft, No Tenderness, No Hepatosplenomegaly, No Masses Extremities: No Clubbing, No Tenderness/Swelling Skin: No Rashes, No Breakdown, No Significant Lesion Neuro: Normal Speech, Normal Tone, Sensation Intact Psych/Mental Status: Mental Status NL A/P-Cardiology Admission Diagnosis Spinal Stenosis Chest pain CAD HTN Assessment/Plan Spinal stenosis, slipped disc, status post L2-3 laminectomy done on July 20, 2019, back pain improving. Chest pain, chronic stable angina, no further episodes of chest pain reported. Continue to monitor Coronary artery disease, history of CABG, multiple intervention the past, recent cardiac catheterization with drug-eluting stent deployment to the vein graft to the diagonal artery, had a patent GRACE to LAD with patent stent beyond the anastomosis in the LAD, small vessel disease otherwise done by Dr. Perez in [facility], currently back on Plavix. Continue to monitor Hypotension, probably secondary to pain medication and muscle relaxant, unable to tolerate any antihypertensive medication at this time, blood pressure better this morning, continue to monitor. Sinus bradycardia, better at this time, off beta blockers. Hyperlipidemia, maintained on statin Generalized weakness, lower and upper extremity weakness, cervical spinal stenosis with slipped disc, s/p L 2-[address] Bhatt. Dementia Clinical Quality Measures DVT/VTE Risk/Contraindication: Risk Factor Score Per Nursin RFS Level Per Nursing on Admit: 4+=Very High DESIRE FULLER Aug 23, 2019 08:08 POS
--- NOTE | 2019-08-23 08:11 | Progress Note ---
NIDIA NGUYEN [facility] 08/23/19 0810: Progress Note CC: Post Lumbar Laminectomy, Cervical stenosis * Took a shower yesterday mostly by himself, did need some assistance * He walked yesterday in PT, but states he laid in bed the rest of the day * He states he had some SOB and cough at the end of his exercise yesterday * He states he did not urinate yesterday, which is abnormal for him. * He did urinate this morning, but complained it burned a little ADENIKE REEDER DO 08/23/19 0921: Supervisory-Addendum Brief Verification & Attestation Participated in pt care: history, MDM, physical Personally performed: exam, history, MDM, supervision of care Care discussed with: Medical Student Procedures: n/a Results interpretation: Verified all documentation Verification and Attestation of Medical Student E/M Service A medical student performed and documented this service in my presence. I reviewed and verified all information documented by the medical student and made modifications to such information, when appropriate. I personally performed the physical exam and medical decision making. Adenike Reeder, Aug 23, 2019,09:21 NIDIA NGUYEN Aug 23, 2019 08:10 ADENIKE DAILEY DO Aug 23, 2019 09:21 POS
--- NOTE | 2019-08-23 08:30 | Cardiology Progress Note ---
Subjective Date Seen by Provider: Aug 23, 2019 Time Seen by Provider: 08:29 Subjective/Events-last exam Patient is in the gym, receiving physical therapy. Feeling well, still having mild back pain Review of Systems General: No Chills, No Night Sweats, No Fatigue, No Malaise, No Appetite, No Other HEENT: No Head Aches, No Visual Changes, No Eye Pain, No Ear Pain, No Dysphasia, No Sinus Congestion, No Post Nasal Drip, No Sore Throat, No Other Pulmonary: No Dyspnea, No Cough, No Pleuritic Chest Pain, No Other Cardiovascular: No: Chest Pain, Palpitations, Orthopnea, Paroxysmal Noc. Dyspne a, Edema, Lt Headedness, Other Objective-Cardiology Exam Last Set of Vital Signs Vital Signs 08/23/19 05:48 Temp 36.0 Pulse 73 Resp 18 B/P (MAP) 121/74 (90) Pulse Ox 97 O2 Delivery Room Air Capillary Refill : Less Than 3 Seconds I&O Intake and Output 08/23/19 00:00 Intake Total 780 ml Output Total 250 ml Balance 530 ml Intake Oral 780 ml Output Urine Total 250 ml # Voids 1 # Urine Diapers 1 General: Alert, Oriented X3 HEENT: Atraumatic, EOMI Neck: Supple, No JVD, No Thyromegaly Lungs: Clear to Auscultation, Normal Air Movement Heart: Regular Rate, Normal S1, Normal S2, No Murmurs Abdomen: Normal Bowel Sounds, Soft, No Tenderness, No Hepatosplenomegaly, No Masses Extremities: No Clubbing, No Tenderness/Swelling Skin: No Rashes, No Breakdown, No Significant Lesion Neuro: Normal Speech, Normal Tone, Sensation Intact Psych/Mental Status: Mental Status NL A/P-Cardiology Admission Diagnosis Spinal Stenosis Chest pain CAD HTN Assessment/Plan Spinal stenosis, slipped disc, status post L2-3 laminectomy done on July 20, 2019, back pain improving. Chest pain, chronic stable angina, no further episodes of chest pain reported. Continue to monitor Coronary artery disease, history of CABG, multiple intervention the past, recent cardiac catheterization with drug-eluting stent deployment to the vein graft to the diagonal artery, had a patent GRACE to LAD with patent stent beyond the anastomosis in the LAD, small vessel disease otherwise done by Dr. Perez in [facility], currently back on Plavix. Continue to monitor Hypotension, probably secondary to pain medication and muscle relaxant, unable to tolerate any antihypertensive medication at this time, blood pressure better this morning, continue to monitor. Sinus bradycardia, better at this time, off beta blockers. Hyperlipidemia, maintained on statin Generalized weakness, lower and upper extremity weakness, cervical spinal stenosis with slipped disc, s/p L 2-[address] Bhatt. Dementia Clinical Quality Measures DVT/VTE Risk/Contraindication: Risk Factor Score Per Nursin RFS Level Per Nursing on Admit: 4+=Very High CHRISTIANO DAVIS MD Aug 23, 2019 8:30 am POS
--- NOTE | 2019-08-23 08:30 | PM&R Progress Note ---
Subjective HPI/CC On Admission Date Seen by Provider: Aug 23, 2019 Time Seen by Provider: 08:30 CC: Cervical spine injury non-traumatic HPI: This is a 78yoWM who presented to the Hospital with significant compromise in function, was found to have significant cervical spine stenosis causing generalized weakness globally, that was complicated with delirium post- operatively in addition to a UTI diagnosis. Pt previously doctored with Dr. Tyler Danielson and did not see a regular store cashier although he has had Bypass surgery and has known CAD. Pt was doing well but had a lengthy acute care course and is in need of significant rehabilitation, prior to returning home. He seems to be very depressed, very tearful when I meet him and reports that he is about to turn 79 next month. I have tried to reassure him and I have put in a behavioral health consult in for him because of obvious tearfulness and overwhelmed feeling and loss of independence that he will need to be aggressively treated for in order to return home safely. Previously he used a walker for the past 6 months prior to admission, had lumbar spine surgery then was discharged home and home PT Collette Ramos evaluated the Pt to have such se higinio weakness that he was total care so he was sent to the ER for workup and from there thing progressed into cervical spine MRI showing severe stenosis and Dr. Bhatt performed surgery with good results but was so severe it was a dural tear during the surgery and he has become quite debilitated. He is urinating well, hasn't had a BM in several days so will need to work on that when he is admitted into the inpatient rehab unit. Overall he will be aggressively treated in order to re-gain his independence in order to return home. Subjective/Events-last exam Pt doing pretty well Waiting on therapy today Wound care will look at his back incision today Pain meds are given Bowels are moving regularly Incontinence much improved but concentrated urine so will increase oral intake of fluid Bowels are moving Check meds and labs Reviewed therapy notes Conferred with cell operator of Systems General: Fatigue Musculoskeletal: back pain Objective Exam Vital Signs Vital Signs Date Time Temp Pulse Resp B/P (MAP) Pulse Ox O2 Delivery O2 Flow Rate FiO2 08/23/19 05:48 36.0 73 18 121/74 (90) 97 Room Air Capillary Refill : Less Than 3 Seconds General Appearance: No Apparent Distress, WD/WN, Chronically ill HEENT: PERRL/EOMI, Normal ENT Inspection, Pharynx Normal, Moist Mucous Membranes Neck: Full Range of Motion, Normal Inspection, Non Tender, Supple Respiratory: Chest Non Tender, Lungs Clear, Normal Breath Sounds, No Accessory Muscle Use, No Respiratory Distress Cardiovascular: Regular Rate, Rhythm, No Gallop, No Murmur Gastrointestinal: Normal Bowel Sounds, No Organomegaly, No Pulsatile Mass, Non Tender, Soft Back: Normal Inspection, No CVA Tenderness, Decreased Range of Motion (much improved today) Extremity: Normal Capillary Refill, Normal Inspection, Normal Range of Motion, Non Tender, No Calf Tenderness, No Pedal Edema Neurologic/Psychiatric: Alert, Oriented x3, Normal Mood/Affect, manager cath lab II-XII Norm as Tested, Motor Weakness Skin: Normal Color, Warm/Dry Lymphatic: No Adenopathy Results/Procedures Lab Patient resulted labs reviewed. FIM Transfers Therapy Code Descriptions/Definitions Functional [place] Measure: 0=Not Assessed/NA 4=Minimal Assistance 1=Total Assistance 5=Supervision or Setup 2=Maximal Assistance 6=Modified [place] 3=Moderate Assistance 7=Complete IndependenceSCALE: Activities may be completed with or without assistive devices. 7-Kwwkdoplnf-ygjfbjm completes the activity by him/herself with no assistance from a helper. 5-Set-up or Clean-up Assistance-helper sets up or cleans up; patient completes activity. [place] assists only prior to or following the activity. 4-Supervision or Touching Assistance-helper provides verbal cues and/or touching/steadying and/or contact guard assistance as patient completes activity. Assistance may be provided throughout the activity or intermittently. 3-Partial/Moderate Assistance-helper does LESS THAN HALF the effort. [place] lifts, holds or supports trunk or limbs, but provides less than half the effort. 2-Substantial/Maximal Assistance-helper does MORE THAN HALF the effort. [place] lifts or holds trunk or limbs and provides more than half the effort. 1-Jlausspzm-lsjuku does ALL the effort. Patient does none of the effort to complete the activity. Or, the assistance of 2 or more helpers is required for the patient to complete the activity. If activity was not attempted, code reason: 7-Patient Refused. 9-Not Applicable-not attempted and the patient did not perform the activity before the current illness, exacerbation or injury. 10-Not Attempted due to Environmental Limitations-(lack of equipment, weather restraints, etc.). 88-Not Attempted due to Medical Conditions or Safety Concerns. Transfers (B, C, W/C) (FIM): 3 Roll Left to Right (QC): 6 Sit to Lying (QC): 4 (SBA. Pt was able to get B/L LE into bed without assist this date.) Sit to Stand (QC): 3 (Olu. pt has 1 stand that requires Olu for sit to stand which was from a straight back chair with lower surface. Pt was CGA for all other sit to stands.) Chair/Khm-vb-Hpcke Xfer(QC): 3 (Olu-CGA stand pivot with FWW) Bed to/from Chair: 5 Car Transfer (QC): 3 (Olu with slide board) Gait Training Does the Patient Walk?: Yes Gait (FIM): 8 (x4 in //bars) Distance: 96' 52', 30' Walk 10 feet (QC): 4 (CGA) Walk 50 ft with 2 Turns(QC): 4 (CGA) Walk 150 ft (QC): 88 Walking 10ft/uneven surface-QC: 88 Gait Persons Needed: 1 Gait Assistive Device: FWW Wheelchair Training Does the Pt Use a Wheelchair?: Yes Wheelchair (FIM): 1 Wheelchair Distance: 3=150 ft Distance: 50' x2 Wheel 50 ft with 2 turns (QC): 6 Wheel 150 ft (QC): 6 Type of Wheelchair: Manual Stair Training 1 Step (curb) (QC): 88 4 Steps (QC): 88 12 Steps (QC): 88 Balance Picking up an Object (QC): 88 ADL-Treatment Eating (QC): 6 (Dentures. Pt able to open containers/packages then uses regular utensils to eat.) Groomin (Pt brushed hair at bed level, he was able to gather hair brush from side table and complete task without assistance.) Oral Hygiene (QC): 6 (Sitting at sink in w/c, pt completes independently.) Bathing Location: L Arm, R Arm, L Upper Leg, R Upper Leg, L Lower Leg (including foot), R Lower Leg (including foot), Chest, Abdomen, Perineal Area Shower/Bathe Self (QC): 3 (Pt able to wash all parts of body including buttocks using side leans. Pt required assistance with buttocks for thoroughness.) Upper Body Dressing (QC): 5 (Set up of shirt.) Lower Body Dressing (QC): 2 (Pt attempted to thread BLE into underwear, required assistance due to threading both feet into same leg hole. Pt was able to correctly thread BLE into pants. Required assistance managing pants/underwear up as pt stood at FWW.) On/Off Footwear (QC): 2 (OT educated pt on using sock aid to don socks. OT assisted pt with doffing socks, & demo'd use of sock aid. Pt able to don sock on left foot using sock aid, required assistance with right foot secondary to dressing on heel of foot) Toileting Hygiene (QC): 7 (Pt declined attempt to toilet stating he does not transfer to the toilet. When he needs to go to the bathroom, he just goes in the bed. Based on LB dressing and shower, pt would require assitance with managing the clothing up/down and hygiene for task.) Toilet Transfer (QC): 7 (Pt reported he does not use the toilet, declined attempt to transfer to toilet on this date. Pt reports if he needs to use the toilet he just goes in the bed.) Assessment/Plan Assessment and Plan Assess & Plan/Chief Complaint Assessment: Spinal cord trauma from severe stenosis Debility CAD Delirium now resolved s/p UTI completed treatment recurrent type Constipation related to surgery HTN HLP Cognitive deficit SLUMS Depression w/tearfulness Bladder incontinence improved on Dr Yasmeen cash Bowel incontinence improved now Plan: Monitor bowel and bladder incontinence IRF protocol Increase strength with IRF protocols BM regimen to hold due to loose stools Started antidepressant Monitor BP and holding most BP meds Dr Arana consultation is appreciated [facility] this week Increase oral fluids Wound care evaluation of back incision (1) Spinal cord injury (2) Generalized Weakness (3) Cervical spinal stenosis Status: Acute (4) Neuroforaminal stenosis of spine Status: Acute (5) Essential (primary) hypertension Status: Chronic (6) Lumbar spinal stenosis Status: Acute (7) Slipped intervertebral disc Status: Acute (8) Delirium Status: Acute (9) Incidental durotomy Status: Acute (10) CAD (coronary artery disease) Status: Chronic YANETH REEDER DO Aug 23, 2019 08:30 POS
--- NOTE | 2019-08-23 08:30 | NUR ---
DR. REEDER TO FLOOR. INFORMED OF DECREASED URINE OUTPUT OVER NIGHT WITH DARK LEROY, STRONG SMELLING URINE AND POST VOID BLADDER SCAN OF 5 MLS. NO NEW ORDERS REC'D. PATIENT ENCOURAGED TO INCREASE ORAL INTAKE
[2019-08-23] MEDS: CLOPIDOGREL 75 MG (PLAVIX) TABLET PO SCH (08:58)
[2019-08-23] MEDS: TOLTERODINE LA 4 MG (DETROL) CAP PO SCH ×2 (08:58→20:26)
[2019-08-23] MEDS: LORATADINE (CLARITIN) 10 MG TAB PO SCH (08:58)
[2019-08-23] MEDS: ASPIRIN E.C. 81 MG (ECOTRIN) TAB PO SCH (08:58)
[2019-08-23] MEDS: DOCUSATE CALCIUM 240 MG (SURFAK) CAP PO SCH ×2 (08:58→19:26)
[2019-08-23] MEDS: DULoxetine 30 MG (CYMBALTA) CAP PO SCH (08:59)
[2019-08-23] MEDS: BACITRACIN OINTMENT 28 GM TUBE TOP SCH ×2 (09:00→19:27)
[2019-08-23] MEDS: BISACODYL 10 MG SUPP (DULCOLAX) PR SCH ×2 (09:00→19:27)
[2019-08-23] MEDS: POLYETHYLENE GLYCOL 17 GM (MIRALAX) PACK PO SCH ×2 (09:00→19:25)
[2019-08-23] MEDS: SENNA W/DOCUSATE (SENOKOT S) TABLET PO SCH ×2 (09:00→19:26)
--- NOTE | 2019-08-23 09:15 | Speech Therapy Daily Note ---
Speech Daily Progress Note Subjective Date Seen by Provider: Aug 23, 2019 Time Seen by Provider: 00:30 Patient was resting in his bed following OT. He stated he was hurting but had taken his pain meds. Objective Patient completed a series of memory tasks related to his daily needs at 90% with 15% verbal cues or repetitions. Assessment Assessment Current Status: Good Progress Treatment Plan Continue Plan of Care Speech Short Term Goals Short Term Goals Short Term Goals 1) Patient will complete memory tasks related to his daily needs at 90% or greater, independently. 2) Patient will complete problem solving tasks related to his daily needs at 90% or greater, independently. 3) Patient will complete safety awareness tasks related to his daily needs at 90% or greater, independently. Speech Tucking Machine Operator Goals Custodial Goals Patient will improve cognitive-communication necessary for safety and daily living tasks with minimal assist. Speech-Plan Patient/Family Goals Patient/Family Goals: Patient will most likely be going to SNF upon discharge. His plans are to go home once he is strong enough. Treatment Plan Speech Therapy Treatment Plan: Continue Plan of Care Patient is progressing as a result of skilled therapies. Treatment Duration: Aug 26, 2019 Frequency: 5 times per week Estimated Hrs Per Day: .5 hour per day Rehab Potential: Fair Barriers to Learning: Patient has mild cognitive deficits, although these have improved during his ARU stay. Pt/Family Agrees to Plan: Yes Safety Risks/Education Teaching Recipient: Patient Teaching Methods: Demonstration, Discussion Response to Teaching: Verbalize Understanding, Return Demonstration Education Topics Provided: Continued safety in his room. Time Speech Therapy Time In: 08:30 Speech Therapy Time Out: 09:00 Total Billed Time: 30 Billed Treatment Time 1, PATRICIA Rae Aug 23, 2019 09:15 POS
--- NOTE | 2019-08-23 09:29 | NUR ---
PETER, INTERMODAL TRUCK DRIVER, HERE TO ASSESS BACK INCISION. RECOMMENDS DEBRIDEMENT. DRESSING CHANGE RECOMMENDATION- CLEANSE INCISION WITH NS. APPLY SKIN PREP. COVER AREAS OF SLOUGH WITH AQUACEL WITH SILVER AND SECURE WITH ALLEVYN. CALL TO DR. HDEZ'S OFFICE TO INFORM OF RECOMMENDATIONS. SPOKE WITH RN WHO RELAYED MESSAGE TO DR. HDEZ. STATES THAT DR. HDEZ WITH SEE PATIENT TOMORROW. CONTINUE WITH AQUACEL WITH SILVER AND ALLEVYN UNTIL SEEN BY DR. HDEZ.
--- NOTE | 2019-08-23 11:14 | Physical Therapy Daily Note ---
PT Daily Note-Current Subjective pt in bed pre-tx. Pt agrees to PT this morning. Pt reports pain in his low back is still 5-6/10. RN present at this time to inspect pt's buttock. Appearance Pt in WC post-tx. Pt agrees to sit up until lunch. pt with call light, room phone, tray table in reach with all needs met at this time. Mental Status Patient Orientation: Person, Place, Time, Situation Transfers SCALE: Activities may be completed with or without assistive devices. 7-Rzsxgnlhal-nnkxcue completes the activity by him/herself with no assistance from a helper. 5-Set-up or Clean-up Assistance-helper sets up or cleans up; patient completes a ctivity. [place] assists only prior to or following the activity. 4-Supervision or Touching Assistance-helper provides verbal cues and/or touching/steadying and/or contact guard assistance as patient completes activity. Assistance may be provided throughout the activity or intermittently. 3-Partial/Moderate Assistance-helper does LESS THAN HALF the effort. [place] lifts, holds or supports trunk or limbs, but provides less than half the effort. 2-Substantial/Maximal Assistance-helper does MORE THAN HALF the effort. [place] lifts or holds trunk or limbs and provides more than half the effort. 9-Vlghicyfm-yhqjxj does ALL the effort. Patient does none of the effort to complete the activity. Or, the assistance of 2 or more helpers is required for the patient to complete the activity. If activity was not attempted, code reason: 7-Patient Refused. 9-Not Applicable-not attempted and the patient did not perform the activity before the current illness, exacerbation or injury. 10-Not Attempted due to Environmental Limitations-(lack of equipment, weather restraints, etc.). 88-Not Attempted due to Medical Conditions or Safety Concerns. Roll Left to Right (QC): 6 Sit to Stand (QC): 3 (modA for sit to stand from lower surface to // bars. Pt was CGA for sit to stand from bed and nustep.) Weight Bearing Right Lower Extremity: Right Weight Bearing/Tolerated Left Lower Extremity: Left Weight Bearing/Tolerated Gait Training Distance: 100'x2 Walk 10 feet (QC): 4 (SBA) Walk 50 ft with 2 Turns(QC): 4 (SBA) Gait Assistive Device: FWW Pt walks from room to PT gym and back today. Wheelchair Training Does the Pt Use a Wheelchair?: No Exercises Seated Therapy Exercises: Long arc quads, Hip flexion, Kicking activity, Hip abd/add Seated Reps: 40 (2sets 20 reps) Standing: Heel/toe raises, Side steps (down back x2 is 1 set) Standing Reps: 20 (2 sets 10 reps) NuStep Minutes: 15 NuStep Workload: 4 Treatments pt performed LE strengthening/endurance training, skilled ambulation training, transfer training, and education this date. Assessment Current Status: Good Progress Pt continues to [place]ustin increased ambulation distance. Pt able to manager integrated // bars for LE strengthening and side steps. Pt required no sitting breaks between gym and room just 2 standing breaks to catch breath. PT Short Term Goals Short Term Goals Time Frame: Aug 02, 2019 Wheelchair Distance: 50' x2 PT Usp Goals Usp Goals PT Usp Goals Time Frame: Aug 16, 2019 Sit to Lying (QC): 3 (Olu) Lying-Sitting on Side/Bed(QC): 3 (Kofi) Sit to Stand (QC): 1 Roll Left to Right (QC): 3 (Olu) Chair/Nup-sb-Hfgll Xfer(QC): 3 (Olu) Car Transfer (QC): 1 Walk 10 feet (QC): 88 Walk 10ft-Uneven Surface(QC): 88 Walk 50ft with 2 Turns (QC): 88 Walk 150 ft (QC): 88 Wheel 50 feet with 2 turns (QC: 5 1 Step (curb) (QC): 88 4 Steps (QC): 88 12 Steps (QC): 88 Picking up an Object (QC): 88 PT Plan Problem List Problem List: Activity Tolerance, Functional Strength, Safety, Balance, Gait, Transfer, Bed Mobility, ROM Treatment/Plan Treatment Plan: Continue Plan of Care Treatment Plan: Bed Mobility, Education, Functional Activity Jesus Alberto, Functional Strength, Group Therapy, Gait, Safety, Therapeutic Exercise, Transfers Treatment Duration: Aug 16, 2019 Frequency: At least 5 of 7 days/Wk (IRF) Estimated Hrs Per Day: 1.5 hours per day Patient and/or Family Agrees t: Yes Safety Risks/Education Patient Education: Gait Training, Transfer Techniques, Correct Positioning, Safety Issues Teaching Recipient: Patient Teaching Methods: Demonstration, Discussion Response to Teaching: Verbalize Understanding, Return Demonstration, Reinforcement Needed Time/GCodes Time In: 1000 Time Out: 1115 Total Billed Treatment Time: 75 Total Billed Treatment 1 visit FA 28' GT 25' EX 22' ALANA CISNEROS PT Aug 23, 2019 11:14 POS
--- NOTE | 2019-08-23 11:24 | NUR ---
Pt to have Allevyn placed on buttocks. Buttocks skin intact but reddened in coccyx area with no blanching. will continue to monitor/turn
--- NOTE | 2019-08-23 15:39 | NUR ---
"RD FOLLOW-UP PMHx: CAD; HTN; PR; chronic constipation PT INTERACTION: Pt was awake and pleasant during nutrition follow-up. Pt states he has been eating well since last assessment. Note pt avg PO intake of 31% x3d. Pt states no recent episodes of n/v/c/d since last assessment. Note pt has 19# wt loss x4w. This is significant at 10% wt lost. Given pt's poor PO intake and significant wt loss, pt meets criteria for chronic severe malnutrition, per ASPEN guidelines. ABNORMAL NUTRITION-RELATED LAB VALUES: Pro 5.6 (L) Est. kcal needs: 2498-3528 (25-30 kcal/kg) Est. Pro needs: 95-111 g Pro (1.2-1.4 g Pro/kg) PES STATEMENT: Inadequate oral intake (NI-2.1) related to loss of appetite as evidenced by 31% meals x3d | pt interview INTERVENTION: Continue with current diet order of Regular diet. Encouraged pt to eat when able. Continue with current supplementation order of Ensure Enlive with meals BID. Provides 350 kcal and 20 g Pro per serving. If PO intake continues to decline, pt may be candidate for enteral nutrition. MONITOR/EVALUATE: PO Intake; Plan of Care; Hydration Status; Weight Status; Lab Values Efe Mendez, MS, RD, LD Ext. 133"
--- NOTE | 2019-08-23 16:00 | NUR ---
Gusset Ripper follow up: pt continues to share that his recovery and healing process are going well. He said he is feeling encouraged and comforted by the answers to his prayers for daily progress. He also states the kindness of staff has aided him in remaining focused on the positive and reassured of God's presence.
[2019-08-23 17:22] VITALS: BP 129/77
[2019-08-23] MEDS: TERAZOSIN 5 MG (HYTRIN) CAPSULE PO SCH (20:26)
[2019-08-23] MEDS: risperiDONE 0.25 MG (RisperDAL) TAB PO SCH (20:26)
[2019-08-23] MEDS: DONEPEZIL 10 MG (ARICEPT) TAB PO SCH (20:26)
[2019-08-24 05:43] VITALS: BP 95/62
[2019-08-24] MEDS: LACTOBACILLUS ACIDOPHILUS (PROBIOTIC) CAPSULE PO SCH ×3 (06:23→17:52)
[2019-08-24] MEDS: PANTOPRAZOLE 40 MG (PROTONIX) TAB PO SCH (06:23)
--- NOTE | 2019-08-24 07:27 | Occupational Ther Daily Note ---
OT Current Status-Daily Note Subjective Pt alert, sitting in w/c. Pt agrees to therapy. No c/o pain at this time. Mental Status/Objective Patient Orientation: Person, Time ADL-Treatment Pt able to set up own meal and use regular utensils to eat. Propelled w/c into bathroom and completed sponge bath, declined shower. Pt was able to complete upper body bathing by self. Assist for sit to stand and CGA in standing while pt cleansed buttocks/janna area and manipulated clothing. Pt completed oral care and grooming sitting at sink. Pt declined changing clothing, did don/doff socks by self. Therapy Code Descriptions/Definitions Functional [place] Measure: 0=Not Assessed/NA 4=Minimal Assistance 1=Total Assistance 5=Supervision or Setup 2=Maximal Assistance 6=Modified [place] 3=Moderate Assistance 7=Complete IndependenceSCALE: Activities may be completed with or without assistive devices. 8-Ujnwmvinui-vxqerif completes the activity by him/herself with no assistance from a helper. 5-Set-up or Clean-up Assistance-helper sets up or cleans up; patient completes activity. [place] assists only prior to or following the activity. 4-Supervision or Touching Assistance-helper provides verbal cues and/or touching/steadying and/or contact guard assistance as patient completes activity. Assistance may be provided throughout the activity or intermittently. 3-Partial/Moderate Assistance-helper does LESS THAN HALF the effort. [place] lifts, holds or supports trunk or limbs, but provides less than half the effort. 2-Substantial/Maximal Assistance-helper does MORE THAN HALF the effort. [place] lifts or holds trunk or limbs and provides more than half the effort. 4-Wbfgcoeih-grahtm does ALL the effort. Patient does none of the effort to complete the activity. Or, the assistance of 2 or more helpers is required for the patient to complete the activity. If activity was not attempted, code reason: 7-Patient Refused. 9-Not Applicable-not attempted and the patient did not perform the activity before the current illness, exacerbation or injury. 10-Not Attempted due to Environmental Limitations-(lack of equipment, weather restraints, etc.). 88-Not Attempted due to Medical Conditions or Safety Concerns. Eating (QC): 6 Oral Hygiene (QC): 6 Shower/Bathe Self (QC): 4 Other Treatment Pt propelled self to therapy gym. Completed arm bike for 15 min at minimal resistance to increase strength and activity tolerance for daily functional tasks. Pt propelled self back to room, min A sit to stand and SPT back to bed. After therapy, pt lying in bed with call light/phone in reach. All needs met in room. OT Short Term Goals Short Term Goals Upper Body Dressing(FIM): 4 Lower Body Dressing(FIM): 4 Toilet/Commode Transfer(FIM): 4 Additional Short Term Goals: 1-Demonstrate ADL Tasks, 2-Verbalize Understanding, 3-ImproveStrength/Jesus Alberto 1=Demonstrate adherence to instructed precautions during ADL tasks. 2=Patient will verbalize/demonstrate understanding of assistive devices/modifications for ADL. 3=Patient will improve strength/tolerance for activity to enable patient to perform ADL's. OT Shelter Goals Pocket Operator Goals Time Frame: Sep 13, 2019 Eating (QC): 6 (met) Oral Hygiene (QC): 6 (met) Shower/Bathe Self (QC): 6 (not met) Upper Body Dressing (QC): 6 (not met) Lower Body Dressing (QC): 5 (not met) On/Off Footwear (QC): 6 (met) Toileting Hygiene (QC): 5 (not met) Toilet/Commode Transfer (QC): 5 (not met) Additional Goals: 1-Demonstrate ADL Tasks, 2-Verbalize Understanding, 3- ImproveStrength/Jesus Alberto 1=Demonstrate adherence to instructed precautions during ADL tasks. 2=Patient will verbalize/demonstrate understanding of assistive devices/modifications for ADL. 3=Patient will improve strength/tolerance for activity to enable patient to perform ADL's. OT Education/Plan Problem List/Assessment Assessment: Decreased Activ Tolerance, Decreased UE Strength, Impaired Self- Care Skills Discharge Recommendations Plan/Recommendations: Continue POC Treatment Plan/Plan of Care Patient would benefit from OT for education, treatment and training to promote independence in ADL's, mobility, safety and/or upper extremity function for ADL's. Plan of Care: ADL Retraining, Caregiver Training, Concurrent Therapy, Functional Mobility, Group Exercise/Act as Ind, UE Funct Exercise/Act, W/C Management Training Treatment Duration: Jul 27, 2019 Frequency: At least 5 of 7 days/Wk (IRF) Estimated Hrs Per Day: 1.5 hours per day Agreement: Yes Rehab Potential: Fair Time/GCodes Start Time: 07:00 Stop Time: 08:00 Total Time Billed (hr/min): 60 Billed Treatment Time 1 visit-ADL 3 (45 min) EX 1 (15 min) SNEHA GARCIA Aug 24, 2019 07:26 POS
[2019-08-24] MEDS: TOLTERODINE LA 4 MG (DETROL) CAP PO SCH ×2 (08:52→20:28)
[2019-08-24] MEDS: DOCUSATE CALCIUM 240 MG (SURFAK) CAP PO SCH ×2 (08:52→20:47)
[2019-08-24] MEDS: CYCLOBENZAPRINE 10 MG (FLEXERIL) TAB PO PRN (08:52)
[2019-08-24] MEDS: SENNA W/DOCUSATE (SENOKOT S) TABLET PO SCH ×2 (08:52→20:27)
[2019-08-24] MEDS: DULoxetine 30 MG (CYMBALTA) CAP PO SCH (08:52)
[2019-08-24] MEDS: LORATADINE (CLARITIN) 10 MG TAB PO SCH (08:52)
[2019-08-24] MEDS: ASPIRIN E.C. 81 MG (ECOTRIN) TAB PO SCH (08:53)
[2019-08-24] MEDS: CLOPIDOGREL 75 MG (PLAVIX) TABLET PO SCH (08:53)
[2019-08-24] MEDS: BISACODYL 10 MG SUPP (DULCOLAX) PR SCH ×2 (09:00→20:47)
[2019-08-24] MEDS: BACITRACIN OINTMENT 28 GM TUBE TOP SCH ×2 (09:00→20:48)
[2019-08-24] MEDS: POLYETHYLENE GLYCOL 17 GM (MIRALAX) PACK PO SCH ×2 (09:00→20:47)
--- NOTE | 2019-08-24 09:06 | PM&R Progress Note ---
Subjective HPI/CC On Admission Date Seen by Provider: Aug 24, 2019 Time Seen by Provider: 08:30 CC: Cervical spine injury non-traumatic HPI: This is a 78yoWM who presented to the Hospital with significant compromise in function, was found to have significant cervical spine stenosis causing generalized weakness globally, that was complicated with delirium post- operatively in addition to a UTI diagnosis. Pt previously doctored with Dr. 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 Pt was doing well but had a lengthy acute care course and is in need of significant rehabilitation, prior to returning home. He seems to be very depressed, very tearful when I meet him and reports that he is about to turn 79 next month. I have tried to reassure him and I have put in a behavioral health consult in for him because of obvious tearfulness and overwhelmed feeling and loss of independence that he will need to be aggressively treated for in order to return home safely. Previously he used a walker for the past 6 months prior to admission, had lumbar spine surgery then was discharged home and home PT Collette Ramos evaluated the Pt to have such se higinio weakness that he was total care so he was sent to the ER for workup and from there thing progressed into cervical spine MRI showing severe stenosis and Dr. Bhatt performed surgery with good results but was so severe it was a dural tear during the surgery and he has become quite debilitated. He is urinating well, hasn't had a BM in several days so will need to work on that when he is admitted into the inpatient rehab unit. Overall he will be aggressively treated in order to re-gain his independence in order to return home. Subjective/Events-last exam Pt doing pretty well today Able to stand up and walk around quite a bit now Dr. Bhatt will evaluate incision today Will discuss in team conference regarding the plan for him Due to dementiaand difficulty of hearing make it to highriskfor him to be anywhere except for 24/7 supervision so likely that will require Courtney Thorne even though he is doing well Bowels are moving Pain still remains in the back but is tolerable Bowels are moving Check meds and labs Reviewed therapy notes Conferred with application developer manager of Systems General: Fatigue Musculoskeletal: back pain Objective Exam Vital Signs Vital Signs Date Time Temp Pulse Resp B/P (MAP) Pulse Ox O2 Delivery O2 Flow Rate FiO2 08/24/19 10:11 Room Air 08/24/19 05:43 36.2 78 18 95/62 (73 93 Capillary Refill : Less Than 3 Seconds General Appearance: No Apparent Distress, WD/WN, Chronically ill HEENT: PERRL/EOMI, Normal ENT Inspection, Pharynx Normal, Moist Mucous Membranes Neck: Full Range of Motion, Normal Inspection, Non Tender, Supple Respiratory: Chest Non Tender, Lungs Clear, Normal Breath Sounds, No Accessory Muscle Use, No Respiratory Distress Cardiovascular: Regular Rate, Rhythm, No Gallop, No Murmur Gastrointestinal: Normal Bowel Sounds, No Organomegaly, No Pulsatile Mass, Non Tender, Soft Back: Normal Inspection, No CVA Tenderness, Decreased Range of Motion (much improved today) Extremity: Normal Capillary Refill, Normal Inspection, Normal Range of Motion, Non Tender, No Calf Tenderness, No Pedal Edema Neurologic/Psychiatric: Alert, Oriented x3, Normal Mood/Affect, inhalation therapist II-XII Norm as Tested, Motor Weakness Skin: Normal Color, Warm/Dry Lymphatic: No Adenopathy Results/Procedures Lab Patient resulted labs reviewed. FIM Transfers Therapy Code Descriptions/Definitions Functional [place] Measure: 0=Not Assessed/NA 4=Minimal Assistance 1=Total Assistance 5=Supervision or Setup 2=Maximal Assistance 6=Modified [place] 3=Moderate Assistance 7=Complete IndependenceSCALE: Activities may be completed with or without assistive devices. 8-Vtdtcxvhel-lhhmvtv completes the activity by him/herself with no assistance from a helper. 5-Set-up or Clean-up Assistance-helper sets up or cleans up; patient completes activity. [place] assists only prior to or following the activity. 4-Supervision or Touching Assistance-helper provides verbal cues and/or touching/steadying and/or contact guard assistance as patient completes activity. Assistance may be provided throughout the activity or intermittently. 3-Partial/Moderate Assistance-helper does LESS THAN HALF the effort. [place] lifts, holds or supports trunk or limbs, but provides less than half the effort. 2-Substantial/Maximal Assistance-helper does MORE THAN HALF the effort. [place] lifts or holds trunk or limbs and provides more than half the effort. 2-Pfckvmzjb-vrpslh does ALL the effort. Patient does none of the effort to complete the activity. Or, the assistance of 2 or more helpers is required for the patient to complete the activity. If activity was not attempted, code reason: 7-Patient Refused. 9-Not Applicable-not attempted and the patient did not perform the activity before the current illness, exacerbation or injury. 10-Not Attempted due to Environmental Limitations-(lack of equipment, weather restraints, etc.). 88-Not Attempted due to Medical Conditions or Safety Concerns. Transfers (B, C, W/C) (FIM): 3 Roll Left to Right (QC): 6 Sit to Lying (QC): 4 (SBA. Pt was able to get B/L LE into bed without assist this date.) Sit to Stand (QC): 3 (modA for sit to stand from lower surface to // bars. Pt was CGA for sit to stand from bed and nustep.) Chair/Mez-cz-Zlhsv Xfer(QC): 3 (Olu-CGA stand pivot with FWW) Bed to/from Chair: 5 Car Transfer (QC): 3 (Olu with slide board) Gait Training Does the Patient Walk?: Yes Gait (FIM): 8 (x4 in //bars) Distance: 100'x2 Walk 10 feet (QC): 4 (SBA) Walk 50 ft with 2 Turns(QC): 4 (SBA) Walk 150 ft (QC): 88 Walking 10ft/uneven surface-QC: 88 Gait Persons Needed: 1 Gait Assistive Device: FWW Wheelchair Training Does the Pt Use a Wheelchair?: No Wheelchair (FIM): 1 Wheelchair Distance: 3=150 ft Distance: 50' x2 Wheel 50 ft with 2 turns (QC): 6 Wheel 150 ft (QC): 6 Type of Wheelchair: Manual Stair Training 1 Step (curb) (QC): 88 4 Steps (QC): 88 12 Steps (QC): 88 Balance Picking up an Object (QC): 88 ADL-Treatment Eating (QC): 6 Groomin (Pt brushed hair at bed level, he was able to gather hair brush from side table and complete task without assistance.) Oral Hygiene (QC): 6 Bathing Location: L Arm, R Arm, L Upper Leg, R Upper Leg, L Lower Leg (including foot), R Lower Leg (including foot), Chest, Abdomen, Perineal Area Shower/Bathe Self (QC): 4 Upper Body Dressing (QC): 5 (Set up of shirt.) Lower Body Dressing (QC): 2 (Pt attempted to thread BLE into underwear, required assistance due to threading both feet into same leg hole. Pt was able to correctly thread BLE into pants. Required assistance managing pants/underwear up as pt stood at FWW.) On/Off Footwear (QC): 2 (OT educated pt on using sock aid to don socks. OT assisted pt with doffing socks, & demo'd use of sock aid. Pt able to don sock on left foot using sock aid, required assistance with right foot secondary to dressing on heel of foot) Toileting Hygiene (QC): 7 (Pt declined attempt to toilet stating he does not transfer to the toilet. When he needs to go to the bathroom, he just goes in the bed. Based on LB dressing and shower, pt would require assitance with managing the clothing up/down and hygiene for task.) Toilet Transfer (QC): 7 (Pt reported he does not use the toilet, declined attempt to transfer to toilet on this date. Pt reports if he needs to use the toilet he just goes in the bed.) Assessment/Plan Assessment and Plan Assess & Plan/Chief Complaint Assessment: Spinal cord trauma from severe stenosis Debility CAD Delirium now resolved s/p UTI completed treatment recurrent type Constipation related to surgery HTN HLP Cognitive deficit SLUMS Depression w/tearfulness Bladder incontinence improved on Dr Yasmeen cash Bowel incontinence improved now Plan: Monitor bowel and bladder incontinence IRF protocol Increase strength with IRF protocols BM regimen to hold due to loose stools Started antidepressant Monitor BP and holding most BP meds Dr Arana consultation is appreciated [place] next week since he has made such significant progress this past 7 days Increase oral fluids Wound care evaluation of back incision and Dr Bhatt to evaluate for debridement (1) Spinal cord injury (2) Generalized Weakness (3) Cervical spinal stenosis Status: Acute (4) Neuroforaminal stenosis of spine Status: Acute (5) Essential (primary) hypertension Status: Chronic (6) Lumbar spinal stenosis Status: Acute (7) Slipped intervertebral disc Status: Acute (8) Delirium Status: Acute (9) Incidental durotomy Status: Acute (10) CAD (coronary artery disease) Status: Chronic YANETH REEDER DO Aug 24, 2019 09:06 POS
--- NOTE | 2019-08-24 09:57 | Progress Note ---
NIDIA NGUYEN [facility] 08/24/19 0957: Progress Note CC: Post Lumbar Laminectomy, Cervical stenosis * Pt reported sleeping okay and eating breakfast this morning * He states walked down to PT yesterday using the walker with minimal to no assistance needed * He states he is able to stand up from the bed to his walker by himself * When asked if he could get up from the bed and walk to the door all by himself if needed he stated yes he could do that. * He states his legs are getting a lot stronger and he is feeling better. * He does still have some back pain and we will have Dr Bhatt come look at his wound today. ADENIKE REEDER DO 08/24/19 2547: Supervisory-Addendum Brief Verification & Attestation Participated in pt care: history, MDM, physical Personally performed: exam, history, MDM, supervision of care Care discussed with: Medical Student Procedures: n/a Results interpretation: Verified all documentation Verification and Attestation of Medical Student E/M Service A medical student performed and documented this service in my presence. I reviewed and verified all information documented by the medical student and made modifications to such information, when appropriate. I personally performed the physical exam and medical decision making. Adenike Reeder, Aug 24, 2019,16:37 NIDIA NGUYEN [facility] Aug 24, 2019 09:57 ADENIKE DAILEY DO Aug 24, 2019 16:37 POS
--- NOTE | 2019-08-24 10:25 | Cardiology Progress Note ---
Subjective Date Seen by Provider: Aug 24, 2019 Time Seen by Provider: 10:05 Subjective/Events-last exam Patient with PT. Denies any back pain this morning. Denies CP or dyspnea. Review of Systems General: No Chills, No Night Sweats, No Fatigue, No Malaise, No Appetite, No O ther HEENT: No Head Aches, No Visual Changes, No Eye Pain, No Ear Pain, No Dysphasia, No Sinus Congestion, No Post Nasal Drip, No Sore Throat, No Other Pulmonary: No Dyspnea, No Cough, No Pleuritic Chest Pain, No Other Cardiovascular: No: Chest Pain, Palpitations, Orthopnea, Paroxysmal Noc. Dyspnea, Edema, Lt Headedness, Other Objective-Cardiology Exam Last Set of Vital Signs Vital Signs 08/24/19 08/24/19 05:43 10:11 Temp 36.2 Pulse 78 Resp 18 B/P (MAP) 95/62 (73) Pulse Ox 93 O2 Delivery Room Air Capillary Refill : Less Than 3 Seconds I&O Intake and Output 08/24/19 00:00 Intake Total 1190 ml Output Total 150 ml Balance 1040 ml Intake Oral 1190 ml Output Urine Total 150 ml # Voids 4 # Urine Diapers 1 # Bowel Movements 1 General: Alert, Oriented X3 HEENT: Atraumatic, EOMI Neck: Supple, No JVD, No Thyromegaly Lungs: Clear to Auscultation, Normal Air Movement Heart: Regular Rate, Normal S1, Normal S2, No Murmurs Abdomen: Normal Bowel Sounds, Soft, No Tenderness, No Hepatosplenomegaly, No Masses Extremities: No Clubbing, No Tenderness/Swelling Skin: No Rashes, No Breakdown, No Significant Lesion Neuro: Normal Speech, Normal Tone, Sensation Intact Psych/Mental Status: Mental Status NL A/P-Cardiology Admission Diagnosis Spinal Stenosis Chest pain CAD HTN Assessment/Plan Spinal stenosis, slipped disc, status post L2-3 laminectomy done on July 20, 2019, back pain improving. Continue PT/OT Chest pain, history of chronic stable angina, no further episodes of chest pain reported. Continue to monitor Coronary artery disease, history of CABG, multiple intervention the past, recent cardiac catheterization with drug-eluting stent deployment to the vein graft to the diagonal artery, had a patent GRACE to LAD with patent stent beyond the anastomosis in the LAD, small vessel disease otherwise done by Dr. Perez in [facility], currently back on Plavix. Continue to monitor Hypotension, probably secondary to pain medication and muscle relaxant, unable to tolerate any antihypertensive medication at this time, continue to monitor. Sinus bradycardia, better at this time, off beta blockers. Hyperlipidemia, maintained on statin Generalized weakness, lower and upper extremity weakness, cervical spinal stenosis with slipped disc, s/p L 2-[address] Bhatt. Dementia Patient was seen and evaluated with Jill, examination performed, management plan was discussed, agree with the current scribed note, I made few changes to the note using Italic font Patient is laying down in bed, asymptomatic Lungs were clear to auscultation, heart is regular rate and rhythm Continue on current medication continue to monitor Clinical Quality Measures DVT/VTE Risk/Contraindication: Risk Factor Score Per Nursin RFS Level Per Nursing on Admit: 4+=Very High JILL FULLER Aug 24, 2019 10:25 am CHRISTIANO CHANG MD Aug 24, 2019 3:34 pm ISIDRA
--- NOTE | 2019-08-24 10:29 | Physical Therapy Daily Note ---
PT Daily Note-Current Subjective Pt laying Supine in bed upon arrival. Pt agrees to PT. Pain Numeric Pain Scale: 4 Location: Dorsal Location Body Site: Back Pain Description: Ache Mental Status Patient Orientation: Person, Place, Time, Situation Transfers SCALE: Activities may be completed with or without assistive devices. 5-Ayzjkhcwme-scpthuj completes the activity by him/herself with no assistance from a helper. 5-Set-up or Clean-up Assistance-helper sets up or cleans up; patient completes activity. [place] assists only prior to or following the activity. 4-Supervision or Touching Assistance-helper provides verbal cues and/or touching/steadying and/or contact guard assistance as patient completes activity. Assistance may be provided throughout the activity or intermittently. 3-Partial/Moderate Assistance-helper does LESS THAN HALF the effort. [place] lifts, holds or supports trunk or limbs, but provides less than half the effort. 2-Substantial/Maximal Assistance-helper does MORE THAN HALF the effort. [place] lifts or holds trunk or limbs and provides more than half the effort. 0-Sbrxxzbsy-ehwvfl does ALL the effort. Patient does none of the effort to c omplete the activity. Or, the assistance of 2 or more helpers is required for the patient to complete the activity. If activity was not attempted, code reason: 7-Patient Refused. 9-Not Applicable-not attempted and the patient did not perform the activity before the current illness, exacerbation or injury. 10-Not Attempted due to Environmental Limitations-(lack of equipment, weather restraints, etc.). 88-Not Attempted due to Medical Conditions or Safety Concerns. Roll Left to Right (QC): 5 Sit to Lying (QC): 4 Sit to Stand (QC): 5 Weight Bearing Right Lower Extremity: Right Weight Bearing/Tolerated Left Lower Extremity: Left Weight Bearing/Tolerated Gait Training Does the Patient Walk?: Yes Gait: 5 Distance: 75', 125' Walk 10 feet (QC): 5 Walk 50 ft with 2 Turns(QC): 5 Walk 150 ft (QC): 5 Gait Persons Needed: 1 Gait Assistive Device: FWW Pt fatigues needing occasional RB but quick to recover. Exercises Standing: Hamstring curls, Heel/toe raises, Mini squats, Sit to Stand, Side steps, Weight shifts Standing Reps: 15 NuStep Minutes: 15 NuStep Workload: 4 Treatments Pt transfers from bed to EOB to standing at SBA. Pt ambulates in hallway using FWW. Pt completes Standing EX at //bars then takes short RB. Pt uses NuStep for 15m at WL 4. Pt then again takes short RB before ambulating again in hallway. Pt returns to room to rest Supine in bed. Pt needs Min A to lift B LE into bed. Pt has all needs met and call light in hand. Assessment Current Status: Good Progress Pt continues to stay motivated and works hard. Pt still struggles with fatigue at times. PT Short Term Goals Short Term Goals Time Frame: Aug 02, 2019 Wheelchair Distance: 50' x2 PT Intermediate Goals Intermediate Goals PT Intermediate Goals Time Frame: Aug 16, 2019 Sit to Lying (QC): 3 (Olu) Lying-Sitting on Side/Bed(QC): 3 (Kofi) Sit to Stand (QC): 1 Roll Left to Right (QC): 3 (Olu) Chair/Xye-gl-Zwhkp Xfer(QC): 3 (Olu) Car Transfer (QC): 1 Walk 10 feet (QC): 88 Walk 10ft-Uneven Surface(QC): 88 Walk 50ft with 2 Turns (QC): 88 Walk 150 ft (QC): 88 Wheel 50 feet with 2 turns (QC: 5 1 Step (curb) (QC): 88 4 Steps (QC): 88 12 Steps (QC): 88 Picking up an Object (QC): 88 PT Plan Problem List Problem List: Activity Tolerance, Functional Strength, Gait Treatment/Plan Treatment Plan: Continue Plan of Care Treatment Plan: Bed Mobility, Education, Functional Activity Jesus Alberto, Functional Strength, Group Therapy, Gait, Safety, Therapeutic Exercise, Transfers Treatment Duration: Aug 16, 2019 Frequency: At least 5 of 7 days/Wk (IRF) Estimated Hrs Per Day: 1.5 hours per day Patient and/or Family Agrees t: Yes Safety Risks/Education Patient Education: Gait Training, Transfer Techniques, Correct Positioning, Safety Issues Teaching Recipient: Patient Teaching Methods: Discussion Response to Teaching: Verbalize Understanding Time/GCodes Time In: 915 Time Out: 1015 Total Billed Treatment Time: 60 Total Billed Treatment 1, GT (20m), FA (10m) & EX x2 (30m) CAITLIN PIERRE STAVE HEWER Aug 24, 2019 10:29 POS
--- NOTE | 2019-08-24 11:28 | Speech Therapy Daily Note ---
Speech Daily Progress Note Subjective Date Seen by Provider: Aug 24, 2019 Time Seen by Provider: 00:30 Patient was resting in bed after his OT session when I entered his room. Objective Patient completed a series of problem solving tasks with 90% given 5% cues. Assessment Assessment Current Status: Good Progress Treatment Plan Continue Plan of Care Speech Short Term Goals Short Term Goals Short Term Goals 1) Patient will complete memory tasks related to his daily needs at 90% or greater, independently. 2) Patient will complete problem solving tasks related to his daily needs at 90% or greater, independently. 3) Patient will complete safety awareness tasks related to his daily needs at 90% or greater, independently. Speech Detention Goals Detention Goals Patient will improve cognitive-communication necessary for safety and daily living tasks with minimal assist. Speech-Plan Patient/Family Goals Patient/Family Goals: Patient was set to go to SNF, however due to his progress his discharge location is yet to be determined. Treatment Plan Speech Therapy Treatment Plan: Continue Plan of Care Patient has made to good progress toward meeting ST goals. Treatment Duration: Aug 26, 2019 Frequency: 5 times per week Estimated Hrs Per Day: .5 hour per day Rehab Potential: Fair Barriers to Learning: Patient has had mild cognitive deficits, however these have mostly resolved. Pt/Family Agrees to Plan: Yes Safety Risks/Education Teaching Recipient: Patient Teaching Methods: Demonstration, Discussion Response to Teaching: Verbalize Understanding, Return Demonstration Education Topics Provided: Continued safety within his room and upon discharge. Time Speech Therapy Time In: 08:30 Speech Therapy Time Out: 09:00 Total Billed Time: 30 Billed Treatment Time 1LANI B[address] ST Aug 24, 2019 11:28 POS
--- NOTE | 2019-08-24 14:39 | Therapy Group Daily Note ---
Therapy Daily Group Note Patient Education Topic Other List Below (memory strategies/ARU description) Exercises LE Seated Exercise, UE Exercise Session Ratio (pt:therapist): 3:1 Goal of Session: Education on ARU Expectations, Memory Strategies, UE/LE Strengthing Goal Met for this Session: Yes Pt Benefit of Group: Contributions to Others, Increased Functional Strength, Improved Cognition, Recognition of Peers, Socialization Other/Notes Pt propelled self in w/c to ARU commons area for OT/PT group. Group consisted of introductions (name, place living, favorite article of clothing), memory education, memory tasks, peer led UE/LE seated exercises and ARU description. Pt introduced self appropriately then listened to peers' introduction. Pt acknowledged understanding of educational topics by giving personal strategies. Pt led UE/LE seated exercises by using card prompts and directing peers on correct technique and amount of reps. Pt was able to complete all exercises. Pt was able to complete memory task appropriately. Start Time: 13:00 Stop Time: 14:15 Total Billed Treatment Time: 75 Total Billed Treatment 1-GRP SNEHA GARCIA Aug 24, 2019 14:39 POS
[2019-08-24 18:00] VITALS: BP 115/75
[2019-08-24] MEDS: TERAZOSIN 5 MG (HYTRIN) CAPSULE PO SCH (20:27)
[2019-08-24] MEDS: DONEPEZIL 10 MG (ARICEPT) TAB PO SCH (20:28)
[2019-08-24] MEDS: risperiDONE 0.25 MG (RisperDAL) TAB PO SCH (20:28)
[2019-08-25 05:42] VITALS: BP 103/71
[2019-08-25] MEDS: PANTOPRAZOLE 40 MG (PROTONIX) TAB PO SCH (06:03)
[2019-08-25] MEDS: LACTOBACILLUS ACIDOPHILUS (PROBIOTIC) CAPSULE PO SCH ×3 (06:03→18:14)
--- NOTE | 2019-08-25 08:01 | Cardiology Progress Note ---
Subjective Date Seen by Provider: Aug 25, 2019 Time Seen by Provider: 08:00 Subjective/Events-last exam Patient states back pain continues to improve. Continues to deny any chest pain or dyspnea. Denies dizziness. Review of Systems General: No Chills, No Night Sweats, No Fatigue, No Malaise, No Appetite, No Other HEENT: No Head Aches, No Visual Changes, No Eye Pain, No Ear Pain, No Dysphasia, No Sinus Congestion, No Post Nasal Drip, No Sore Throat, No Other Pulmonary: No Dyspnea, No Cough, No Pleuritic Chest Pain, No Other Cardiovascular: No: Chest Pain, Palpitations, Orthopnea, Paroxysmal Noc. Dyspnea, Edema, Lt Headedness, Other Objective-Cardiology Exam Last Set of Vital Signs Vital Signs 08/25/19 05:42 Temp 36.2 Pulse 80 Resp 18 B/P (MAP) 103/71 (82) Pulse Ox 95 O2 Delivery Room Air Capillary Refill : Less Than 3 Seconds I&O Intake and Output 08/25/19 00:00 Intake Total 1290 ml Output Total 600 ml Balance 690 ml Intake Oral 1290 ml Output Urine Total 600 ml # Voids 1 General: Alert, Oriented X3 HEENT: Atraumatic, EOMI Neck: Supple, No JVD, No Thyromegaly Lungs: Clear to Auscultation, Normal Air Movement Heart: Regular Rate, Normal S1, Normal S2, No Murmurs Abdomen: Normal Bowel Sounds, Soft, No Tenderness, No Hepatosplenomegaly, No Masses Extremities: No Clubbing, No Tenderness/Swelling Skin: No Rashes, No Breakdown, No Significant Lesion Neuro: Normal Speech, Normal Tone, Sensation Intact Psych/Mental Status: Mental Status NL A/P-Cardiology Admission Diagnosis Spinal Stenosis Chest pain CAD HTN Assessment/Plan Spinal stenosis, slipped disc, status post L2-3 laminectomy done on July 20, 2019, back pain improving. Continue PT/OT Chest pain, history of chronic stable angina, no further episodes of chest pain reported. Continue to monitor Coronary artery disease, history of CABG, multiple intervention the past, recent cardiac catheterization with drug-eluting stent deployment to the vein graft to the diagonal artery, had a patent GRACE to LAD with patent stent beyond the anastomosis in the LAD, small vessel disease otherwise done by Dr. Preez in [facility], currently back on Plavix. Continue to monitor Hypotension, probably secondary to pain medication and muscle relaxant, unable to tolerate any antihypertensive medication at this time, continue to monitor. Sinus bradycardia, better at this time, off beta blockers. Hyperlipidemia, maintained on statin Generalized weakness, lower and upper extremity weakness, cervical spinal stenosis with slipped disc, s/p L 2-[address] Bhatt. Dementia Patient was seen and evaluated with Jill, examination performed, management plan was discussed, agree with the current scribed note, I made few changes to the note using Italic font Patient is sitting in a chair, denied any chest pain, reporting improvement in his back pain Borderline hypotension, tolerating it well Coronary artery disease, asymptomatic Continue on current medications and monitor Clinical Quality Measures DVT/VTE Risk/Contraindication: Risk Factor Score Per Nursin RFS Level Per Nursing on Admit: 4+=Very High JILL FULLER Aug 25, 2019 08:01 CHRISTIANO CHANG MD Aug 25, 2019 08:28 POS
--- NOTE | 2019-08-25 08:19 | Occupational Ther Daily Note ---
OT Current Status-Daily Note Subjective Pt upright in w/c at start of session, agreeable to OT tx with focus on ADLs. Pt stated he needed to use the restroom at beginning of tx. Pt did not report any pain this AM. Mental Status/Objective Patient Orientation: Person, Place, Time, Situation ADL-Treatment Therapy Code Descriptions/Definitions Functional [place] Measure: 0=Not Assessed/NA 4=Minimal Assistance 1=Total Assistance 5=Supervision or Setup 2=Maximal Assistance 6=Modified [place] 3=Moderate Assistance 7=Complete IndependenceSCALE: Activities may be completed with or without assistive devices. 7-Qiscueixbr-mnofbwb completes the activity by him/herself with no assistance from a helper. 5-Set-up or Clean-up Assistance-helper sets up or cleans up; patient completes activity. [place] assists only prior to or following the activity. 4-Supervision or Touching Assistance-helper provides verbal cues and/or touching/steadying and/or contact guard assistance as patient completes activity. Assistance may be provided throughout the activity or intermittently. 3-Partial/Moderate Assistance-helper does LESS THAN HALF the effort. [place] lifts, holds or supports trunk or limbs, but provides less than half the effort. 2-Substantial/Maximal Assistance-helper does MORE THAN HALF the effort. [place] lifts or holds trunk or limbs and provides more than half the effort. 4-Kupybzqdl-tvofef does ALL the effort. Patient does none of the effort to complete the activity. Or, the assistance of 2 or more helpers is required for the patient to complete the activity. If activity was not attempted, code reason: 7-Patient Refused. 9-Not Applicable-not attempted and the patient did not perform the activity before the current illness, exacerbation or injury. 10-Not Attempted due to Environmental Limitations-(lack of equipment, weather restraints, etc.). 88-Not Attempted due to Medical Conditions or Safety Concerns. Eating (QC): 6 (Pt reported he was able to open all containers for his breakfast, and eat food without difficulty this AM, prior to OT session.) Oral Hygiene (QC): 6 Bathing Location: L Arm, R Arm, L Upper Leg, R Upper Leg, L Lower Leg (incl uding foot), R Lower Leg (including foot), Chest, Abdomen, Perineal Area Shower/Bathe Self (QC): 3 (Pt required assistance with buttocks for thoroughness. Pt completed task seated on shower bench.) Upper Body Dressing (QC): 5 (Pt required set up of shirt, able to don/doff seated on shower bench.) Lower Body Dressing (QC): 3 (Pt able to manage pants/underwear down and doff all parts. Pt required assistance managing pants/underwear up over hips post shower secondary to fatigue.) Toileting Hygiene (QC): 2 (Pt able to manage pants/underwear down, required assistance with hygiene and managing clothing back up.) Toilet Transfer (QC): 3 (CGA for stand to sit, Min A sit to stand from [facility] over toilet. ) Other Treatment Pt performed functional mobility using FWW from w/c into the bathroom and onto the [facility] over toilet. Pt then transferred into the shower to complete showering and dressing. Pt then transferred to w/c to complete hair brushing, oral hygiene, and shaving at the sink. Pt self propelled w/c to therapy gym, completing x10 mins, min resistance on arm bike in order to increase activity tolerance for ADLs and functional activities. Pt returned to room. Post OT session, pt laying in bed, call light in reach and all needs met. FOOTWEAR QC: 6 (Pt able to don/doff BLE socks without any assist and no AE) Education OT Patient Education: Correct positioning, Energy conservation, Modified ADL techniques, Progress toward Goal/Update tx plan, Purpose of tx/functional activities, Transfer techniques Teaching Recipient: Patient Teaching Methods: Demonstration, Discussion Response to Teaching: Verbalize Understanding, Return Demonstration OT Short Term Goals Short Term Goals Upper Body Dressing(FIM): 4 Lower Body Dressing(FIM): 4 Toilet/Commode Transfer(FIM): 4 Additional Short Term Goals: 1-Demonstrate ADL Tasks, 2-Verbalize Understanding, 3-ImproveStrength/Ejsus Alberto 1=Demonstrate adherence to instructed precautions during ADL tasks. 2=Patient will verbalize/demonstrate understanding of assistive devices/modifications for ADL. 3=Patient will improve strength/tolerance for activity to enable patient to perform ADL's. OT [facility] Goals Lighting Engineering Technician Goals Time Frame: Sep 13, 2019 Eating (QC): 6 (met) Oral Hygiene (QC): 6 (met) Shower/Bathe Self (QC): 6 (not met) Upper Body Dressing (QC): 6 (not met) Lower Body Dressing (QC): 5 (not met) On/Off Footwear (QC): 6 (met) Toileting Hygiene (QC): 5 (not met) Toilet/Commode Transfer (QC): 5 (not met) Additional Goals: 1-Demonstrate ADL Tasks, 2-Verbalize Understanding, 3- ImproveStrength/Jesus Alberto 1=Demonstrate adherence to instructed precautions during ADL tasks. 2=Patient will verbalize/demonstrate understanding of assistive devices/modifications for ADL. 3=Patient will improve strength/tolerance for activity to enable patient to perform ADL's. OT Education/Plan Problem List/Assessment Assessment: Decreased Activ Tolerance, Decreased UE Strength, Impaired Funct Balance, Impaired I ADL's, Impaired Self-Care Skills Discharge Recommendations Plan/Recommendations: Continue POC Treatment Plan/Plan of Care Treatment,Training & Education: Yes Patient would benefit from OT for education, treatment and training to promote independence in ADL's, mobility, safety and/or upper extremity function for A DL's. Plan of Care: ADL Retraining, Caregiver Training, Concurrent Therapy, Functional Mobility, Group Exercise/Act as Ind, UE Funct Exercise/Act, W/C Management Training Treatment Duration: Jul 27, 2019 Frequency: At least 5 of 7 days/Wk (IRF) Estimated Hrs Per Day: 1.5 hours per day Agreement: Yes Rehab Potential: Fair Time/GCodes Start Time: 07:55 Stop Time: 09:10 Total Time Billed (hr/min): 75 Billed Treatment Time 1, ADL 4 [id number], Ex [id number] RACHID GONZALES OT Aug 25, 2019 08:19 POS
[2019-08-25] MEDS: POLYETHYLENE GLYCOL 17 GM (MIRALAX) PACK PO SCH ×2 (08:58→20:56)
[2019-08-25] MEDS: BISACODYL 10 MG SUPP (DULCOLAX) PR SCH ×2 (09:00→20:57)
[2019-08-25] MEDS: CLOPIDOGREL 75 MG (PLAVIX) TABLET PO SCH (09:30)
[2019-08-25] MEDS: LORATADINE (CLARITIN) 10 MG TAB PO SCH (09:30)
[2019-08-25] MEDS: TOLTERODINE LA 4 MG (DETROL) CAP PO SCH ×2 (09:31→20:42)
[2019-08-25] MEDS: ASPIRIN E.C. 81 MG (ECOTRIN) TAB PO SCH (09:31)
[2019-08-25] MEDS: DULoxetine 30 MG (CYMBALTA) CAP PO SCH (09:31)
[2019-08-25] MEDS: BACITRACIN OINTMENT 28 GM TUBE TOP SCH ×2 (09:31→20:46)
[2019-08-25] MEDS: DOCUSATE CALCIUM 240 MG (SURFAK) CAP PO SCH ×2 (09:31→20:42)
[2019-08-25] MEDS: SENNA W/DOCUSATE (SENOKOT S) TABLET PO SCH ×2 (09:31→20:57)
[2019-08-25] MEDS: HYDROcodone/APAP 5 MG/325 MG (LORTAB) TAB PO PRN ×2 (09:40→20:44)
--- NOTE | 2019-08-25 09:51 | Progress Note ---
NIDIA NGUYEN [facility] 08/25/19 0951: Progress Note CC: Post Lumbar Laminectomy, Cervical stenosis * Pt appears to be doing much better recently * He is able to transfer from the bed to standing with a walker with minimal assistance * He was able to use the walker to walk yesterday in therapy * Dr Bhatt came by yesterday to clean out his wound and put a few stitches in it * Pt states his back pain is better today after having the cleaning done yesterday * He states he did not have a BM yesterday, but was able to urinate frequently which is normal for him * He states he feels a lot stronger and is able to do most things by himself or with minimal assistance currently ADENIKE REEDER DO 08/26/19 0826: Supervisory-Addendum Brief Verification & Attestation Participated in pt care: history, MDM, physical Personally performed: exam, history, MDM, supervision of care Care discussed with: Medical Student Procedures: n/a Results interpretation: Verified all documentation Verification and Attestation of Medical Student E/M Service A medical student performed and documented this service in my presence. I reviewed and verified all information documented by the medical student and made modifications to such information, when appropriate. I personally performed the physical exam and medical decision making. Adenike Reeder, Aug 26, 2019,08:26 [facility] Aug 25, 2019 09:51 ADENIKE DAILEY DO Aug 26, 2019 08:26 POS
--- NOTE | 2019-08-25 10:16 | Speech Therapy Daily Note ---
Speech Daily Progress Note Subjective Date Seen by Provider: Aug 25, 2019 Time Seen by Provider: 00:30 Patient was resting in his chair following OT when I entered his room. Patient c/o pain and was given his pain meds by nursing. Objective Patient completed a series of memory tasks from general information category with 90% given 10% verbal cues. Assessment Assessment Current Status: Good Progress Treatment Plan Continue Plan of Care Speech Short Term Goals Short Term Goals Short Term Goals 1) Patient will complete memory tasks related to his daily needs at 90% or greater, independently. 2) Patient will complete problem solving tasks related to his daily needs at 90% or greater, independently. 3) Patient will complete safety awareness tasks related to his daily needs at 90% or greater, independently. Speech Ophthalmologist Goals Penitentiary Goals Patient will improve cognitive-communication necessary for safety and daily living tasks with minimal assist. Speech-Plan Patient/Family Goals Patient/Family Goals: Patient's discharge location to be determined as progress is made. Treatment Plan Speech Therapy Treatment Plan: Continue Plan of Care Patient continues to progress well with skilled therapies. Treatment Duration: Aug 31, 2019 Frequency: 5 times per week Estimated Hrs Per Day: .5 hour per day Rehab Potential: Fair Barriers to Learning: Patient has mild cognitive deficits, however these have mostly resolved as he has progressed overall. Pt/Family Agrees to Plan: Yes Safety Risks/Education Teaching Recipient: Patient Teaching Methods: Demonstration, Discussion Response to Teaching: Verbalize Understanding, Return Demonstration Education Topics Provided: Continued safety and communication of wants/needs. Time Speech Therapy Time In: 09:15 Speech Therapy Time Out: 09:45 Total Billed Time: 30 Billed Treatment Time 1, PATRICIA Rae Aug 25, 2019 10:16 POS
--- NOTE | 2019-08-25 10:42 | Physical Therapy Daily Note ---
PT Daily Note-Current Subjective pt in WC pre-tx. Pt agrees to PT this morning. Pt rates 5/10 pain in low back this morning and states it is feeling better today. Appearance pt in bed post-tx. Pt with phone, call light, and tray in reach with all needs met at this time. Pt had a sig BM during session with loose stool. Mental Status Patient Orientation: Person, Place, Time, Situation Transfers SCALE: Activities may be completed with or without assistive devices. 1-Woclwngvwf-sswfdhk completes the activity by him/herself with no assistance from a helper. 5-Set-up or Clean-up Assistance-helper sets up or cleans up; patient completes activity. [place] assists only prior to or following the activity. 4-Supervision or Touching Assistance-helper provides verbal cues and/or touching/steadying and/or contact guard assistance as patient completes activity. Assistance may be provided throughout the activity or intermittently. 3-Partial/Moderate Assistance-helper does LESS THAN HALF the effort. [place] lifts, holds or supports trunk or limbs, but provides less than half the effort. 2-Substantial/Maximal Assistance-helper does MORE THAN HALF the effort. [place] lifts or holds trunk or limbs and provides more than half the effort. 0-Ofmregrcf-ekosck does ALL the effort. Patient does none of the effort to complete the activity. Or, the assistance of 2 or more helpers is required for the patient to complete the activity. If activity was not attempted, code reason: 7-Patient Refused. 9-Not Applicable-not attempted and the patient did not perform the activity before the current illness, exacerbation or injury. 10-Not Attempted due to Environmental Limitations-(lack of equipment, weather restraints, etc.). 88-Not Attempted due to Medical Conditions or Safety Concerns. Roll Left to Right (QC): 6 Sit to Lying (QC): 4 (SBA) Sit to Stand (QC): 3 (Olu for 2-3 of his stands this session all other stands were CGA.) Weight Bearing Right Lower Extremity: Right Weight Bearing/Tolerated Left Lower Extremity: Left Weight Bearing/Tolerated Gait Training Does the Patient Walk?: Yes Distance: 100', 50' Walk 10 feet (QC): 4 (SBA) Walk 50 ft with 2 Turns(QC): 4 (SBA) Walk 150 ft (QC): 4 (SBA) Gait Assistive Device: FWW Pt improving velocity and stride length with gait. Pt was able to ambulate Exercises Seated Therapy Exercises: Long arc quads, Hip flexion Seated Reps: 30 (2sets 15reps) Standing: Heel/toe raises (2sets 15reps ), Sit to Stand (4sets 5 reps), Side steps (down and back // Bars x2 for 2 sets) Treatments Pt performed bed mobility, transfer training, skilled ambulation training, LE strengthening exercises, and education this date., toileting Assessment Current Status: Good Progress Pt continues to improve distance and [place] increased time on LE's. Pt required no standing break today to walk from his room to the gym. PT Short Term Goals Short Term Goals Time Frame: Aug 02, 2019 Wheelchair Distance: 50' x2 PT Mcfp Goals Mcfp Goals PT Mcfp Goals Time Frame: Aug 16, 2019 Sit to Lying (QC): 3 (Olu) Lying-Sitting on Side/Bed(QC): 3 (Kofi) Sit to Stand (QC): 1 Roll Left to Right (QC): 3 (Olu) Chair/Hmu-nk-Retef Xfer(QC): 3 (Olu) Car Transfer (QC): 1 Walk 10 feet (QC): 88 Walk 10ft-Uneven Surface(QC): 88 Walk 50ft with 2 Turns (QC): 88 Walk 150 ft (QC): 88 Wheel 50 feet with 2 turns (QC: 5 1 Step (curb) (QC): 88 4 Steps (QC): 88 12 Steps (QC): 88 Picking up an Object (QC): 88 PT Plan Problem List Problem List: Activity Tolerance, Functional Strength, Safety, Balance, Gait, Transfer, Bed Mobility, ROM Treatment/Plan Treatment Plan: Continue Plan of Care Treatment Plan: Bed Mobility, Education, Functional Activity Jesus Alberto, Functional Strength, Group Therapy, Gait, Safety, Therapeutic Exercise, Transfers Treatment Duration: Aug 16, 2019 Frequency: At least 5 of 7 days/Wk (IRF) Estimated Hrs Per Day: 1.5 hours per day Patient and/or Family Agrees t: Yes Safety Risks/Education Patient Education: Gait Training, Transfer Techniques, Correct Positioning, Safety Issues Teaching Recipient: Patient Teaching Methods: Demonstration, Discussion Response to Teaching: Return Demonstration, Reinforcement Needed Time/GCodes Time In: 945 Time Out: 1045 Total Billed Treatment Time: 60 Total Billed Treatment 1 visit FA 30' EX 15' GT 15' ALANA CISNEROS PT Aug 25, 2019 10:42 POS
--- NOTE | 2019-08-25 11:07 | NUR ---
Reviewed weekly Care Team Conference Summary with patient. He is agreeable to information discussed, as well as agreeable to discharge on Thursday, August 31. It has been recommended that patient not be alone for safety purposes. Patient states returning home to his granddaughter's is an option; however, she and her work during the day. Patient is open to having a caregiver throughout the day but is unable to pay kgg-gg-oheygr. This worker to explore resources provided by the MA. If [facility] does not have caregiver resources, patient is agreeable to admitting to [facility]. Will contact patient's daughter, Christa and granddaughter, Marian. Will continue to follow for discharge planning.
--- NOTE | 2019-08-25 11:20 | Speech Therapy Rehab Re-Cert ---
Speech Re-Certification Form Therapy Discharge Recommendati: Home w/ Family Support Speech Therapy Treatment Plan: Continue Plan of Care # of days/week 5 days per week Visits Per Week: 5 visits per week Minutes/Day (M-F): 30 minutes per day Minutes/Day (Sat/[place]): 0 Rehab Potential: Good Barriers to Learning: Patient has mild cognitive deficits. Patient and/or Family Agrees t: Yes Speech Short Term Goals Short Term Goals Short Term Goals 1) Patient will complete memory tasks related to his daily needs at 90% or greater, independently. 2) Patient will complete problem solving tasks related to his daily needs at 90% or greater, independently. 3) Patient will complete safety awareness tasks related to his daily needs at 90% or greater, independently. Speech Client Care Representative Goals Client Care Representative Goals Patient will improve cognitive-communication necessary for safety and daily living tasks with minimal assist. PATRICIA GODFREY Aug 25, 2019 11:20 POS
--- NOTE | 2019-08-25 13:30 | PM&R Progress Note ---
Subjective HPI/CC On Admission Date Seen by Provider: Aug 25, 2019 Time Seen by Provider: 09:00 CC: Cervical spine injury non-traumatic HPI: This is a 78yoWM who presented to the Hospital with significant compromise in function, was found to have significant cervical spine stenosis causing generalized weakness globally, that was complicated with delirium post- operatively in addition to a UTI diagnosis. Pt previously doctored with Dr. 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 Pt was doing well but had a lengthy acute care course and is in need of significant rehabilitation, prior to returning home. He seems to be very depressed, very tearful when I meet him and reports that he is about to turn 79 next month. I have tried to reassure him and I have put in a behavioral health consult in for him because of obvious tearfulness and overwhelmed feeling and loss of independence that he will need to be aggressively treated for in order to return home safely. Previously he used a walker for the past 6 months prior to admission, had lumbar spine surgery then was discharged home and home PT Collette Ramos evaluated the Pt to have such se higinio weakness that he was total care so he was sent to the ER for workup and from there thing progressed into cervical spine MRI showing severe stenosis and Dr. Bhatt performed surgery with good results but was so severe it was a dural tear during the surgery and he has become quite debilitated. He is urinating well, hasn't had a BM in several days so will need to work on that when he is admitted into the inpatient rehab unit. Overall he will be aggressively treated in order to re-gain his independence in order to return home. Subjective/Events-last exam Pt doing very well. Seems to be continuing to improve. Dr. Bhatt evaluated the back incision and did a bed-side debridement with two sutures and had no change in medication. Assisted living versus jail versus going home with a granddaughter is still an option. Seems to really be improved since the delirium has completely resolved and the left leg radiculopathy has completely resolved. Going back to home with a granddaughter seems to be a viable solution and if he is unsuccessful we could have jail Courtney Mati set up to have him call us if he needs to go that route. Check meds and labs Reviewed therapy notes Conferred with gas treater of Systems General: Fatigue Musculoskeletal: back pain Objective Exam Vital Signs Vital Signs Date Time Temp Pulse Resp B/P (MAP) Pulse Ox O2 Delivery O2 Flow Rate FiO2 08/26/19 05:22 36.0 64 18 109/69 (82) 96 Room Air Capillary Refill : Less Than 3 Seconds General Appearance: No Apparent Distress, WD/WN, Chronically ill HEENT: PERRL/EOMI, Normal ENT Inspection, Pharynx Normal, Moist Mucous Membranes Neck: Full Range of Motion, Normal Inspection, Non Tender, Supple Respiratory: Chest Non Tender, Lungs Clear, Normal Breath Sounds, No Accessory Muscle Use, No Respiratory Distress Cardiovascular: Regular Rate, Rhythm, No Gallop, No Murmur Gastrointestinal: Normal Bowel Sounds, No Organomegaly, No Pulsatile Mass, Non Tender, Soft Back: Normal Inspection, No CVA Tenderness, Decreased Range of Motion (much improved today) Extremity: Normal Capillary Refill, Normal Inspection, Normal Range of Motion, Non Tender, No Calf Tenderness, No Pedal Edema Neurologic/Psychiatric: Alert, Oriented x3, Normal Mood/Affect, nuclear operator II-XII Norm as Tested, Motor Weakness Skin: Normal Color, Warm/Dry Lymphatic: No Adenopathy Results/Procedures Lab Patient resulted labs reviewed. FIM Transfers Therapy Code Descriptions/Definitions Functional [place] Measure: 0=Not Assessed/NA 4=Minimal Assistance 1=Total Assistance 5=Supervision or Setup 2=Maximal Assistance 6=Modified [place] 3=Moderate Assistance 7=Complete IndependenceSCALE: Activities may be completed with or without assistive devices. 8-Wpebhhgoei-wxakpky completes the activity by him/herself with no assistance from a helper. 5-Set-up or Clean-up Assistance-helper sets up or cleans up; patient completes activity. [place] assists only prior to or following the activity. 4-Supervision or Touching Assistance-helper provides verbal cues and/or touching/steadying and/or contact guard assistance as patient completes activity. Assistance may be provided throughout the activity or intermittently. 3-Partial/Moderate Assistance-helper does LESS THAN HALF the effort. [place] lifts, holds or supports trunk or limbs, but provides less than half the effort. 2-Substantial/Maximal Assistance-helper does MORE THAN HALF the effort. [place] lifts or holds trunk or limbs and provides more than half the effort. 7-Hdsvwtere-cvvafj does ALL the effort. Patient does none of the effort to complete the activity. Or, the assistance of 2 or more helpers is required for the patient to complete the activity. If activity was not attempted, code reason: 7-Patient Refused. 9-Not Applicable-not attempted and the patient did not perform the activity before the current illness, exacerbation or injury. 10-Not Attempted due to Environmental Limitations-(lack of equipment, weather restraints, etc.). 88-Not Attempted due to Medical Conditions or Safety Concerns. Transfers (B, C, W/C) (FIM): 3 Roll Left to Right (QC): 6 Sit to Lying (QC): 4 (SBA) Sit to Stand (QC): 3 (Olu for 2-3 of his stands this session all other stands were CGA.) Chair/Enk-mv-Vkrzt Xfer(QC): 3 (Olu-CGA stand pivot with FWW) Bed to/from Chair: 5 Car Transfer (QC): 3 (Olu with slide board) Gait Training Does the Patient Walk?: Yes Gait (FIM): 5 Distance: 100', 50' Walk 10 feet (QC): 4 (SBA) Walk 50 ft with 2 Turns(QC): 4 (SBA) Walk 150 ft (QC): 4 (SBA) Walking 10ft/uneven surface-QC: 88 Gait Persons Needed: 1 Gait Assistive Device: FWW Wheelchair Training Does the Pt Use a Wheelchair?: Yes Wheelchair (FIM): 1 Wheelchair Distance: 3=150 ft Distance: 50' x2 Wheel 50 ft with 2 turns (QC): 6 Wheel 150 ft (QC): 6 Type of Wheelchair: Manual Stair Training 1 Step (curb) (QC): 88 4 Steps (QC): 88 12 Steps (QC): 88 Balance Picking up an Object (QC): 88 ADL-Treatment Eating (QC): 6 (Pt reported he was able to open all containers for his breakfast, and eat food without difficulty this AM, prior to OT session.) Groomin (Pt brushed hair at bed level, he was able to gather hair brush from side table and complete task without assistance.) Oral Hygiene (QC): 6 Bathing Location: L Arm, R Arm, L Upper Leg, R Upper Leg, L Lower Leg (including foot), R Lower Leg (including foot), Chest, Abdomen, Perineal Area Shower/Bathe Self (QC): 3 (Pt required assistance with buttocks for thoroughness. Pt completed task seated on shower bench.) Upper Body Dressing (QC): 5 (Pt required set up of shirt, able to don/doff seated on shower bench.) Lower Body Dressing (QC): 3 (Pt able to manage pants/underwear down and doff all parts. Pt required assistance managing pants/underwear up over hips post shower secondary to fatigue.) On/Off Footwear (QC): 2 (OT educated pt on using sock aid to don socks. OT assisted pt with doffing socks, & demo'd use of sock aid. Pt able to don sock on left foot using sock aid, required assistance with right foot secondary to dressing on heel of foot) Toileting Hygiene (QC): 2 (Pt able to manage pants/underwear down, required assistance with hygiene and managing clothing back up.) Toilet Transfer (QC): 3 (CGA for stand to sit, Min A sit to stand from [facility] over toilet. ) Assessment/Plan Assessment and Plan Assess & Plan/Chief Complaint Assessment: Spinal cord trauma from severe stenosis Debility CAD Delirium now resolved s/p UTI completed treatment recurrent type Constipation related to surgery HTN HLP Cognitive deficit SLUMS Depression w/tearfulness Bladder incontinence improved on Dr Yasmeen cash Bowel incontinence improved now Plan: Monitor bowel and bladder incontinence IRF protocol Increase strength with IRF protocols BM regimen to hold due to loose stools Started antidepressant Monitor BP and holding most BP meds Dr Arana consultation is appreciated May be able to go home after DC Increase oral fluids Wound care evaluation of back incision and Dr Bhatt to evaluate for debridement (1) Spinal cord injury (2) Generalized Weakness (3) Cervical spinal stenosis Status: Acute (4) Neuroforaminal stenosis of spine Status: Acute (5) Essential (primary) hypertension Status: Chronic (6) Lumbar spinal stenosis Status: Acute (7) Slipped intervertebral disc Status: Acute (8) Delirium Status: Acute (9) Incidental durotomy Status: Acute (10) CAD (coronary artery disease) Status: Chronic YANETH REEDER DO Aug 25, 2019 13:30 POS
--- NOTE | 2019-08-25 13:55 | Physical Therapy Daily Note ---
PT Daily Note-Current Subjective Patient agrees to PT at this time. Patient reports persistent LBP but thinks it is too early for the next pain pill. Pain Numeric Pain Scale: 7 Location: Lower Location Body Site: Back Pain Description: Ache Appearance At beginning of session pt supine in bed. At end of session pt supine in bed with HOB elevated, call light, phone and bedside table within reach. Mental Status Patient Orientation: Person, Place, Time, Situation Transfers SCALE: Activities may be completed with or without assistive devices. 7-Vuxprvtpmp-lnfadai completes the activity by him/herself with no assistance from a helper. 5-Set-up or Clean-up Assistance-helper sets up or cleans up; patient completes activity. [place] assists only prior to or following the activity. 4-Supervision or Touching Assistance-helper provides verbal cues and/or touching/steadying and/or contact guard assistance as patient completes activity. Assistance may be provided throughout the activity or intermittently. 3-Partial/Moderate Assistance-helper does LESS THAN HALF the effort. [place] lifts, holds or supports trunk or limbs, but provides less than half the effort. 2-Substantial/Maximal Assistance-helper does MORE THAN HALF the effort. [place] lifts or holds trunk or limbs and provides more than half the effort. 8-Teexwxsgi-fagwlh does ALL the effort. Patient does none of the effort to complete the activity. Or, the assistance of 2 or more helpers is required for the patient to complete the activity. If activity was not attempted, code reason: 7-Patient Refused. 9-Not Applicable-not attempted and the patient did not perform the activity before the current illness, exacerbation or injury. 10-Not Attempted due to Environmental Limitations-(lack of equipment, weather restraints, etc.). 88-Not Attempted due to Medical Conditions or Safety Concerns. Roll Left to Right (QC): 6 Sit to Lying (QC): 4 Sit to Stand (QC): 3 (required raised bed height to stand) Weight Bearing Right Lower Extremity: Right Weight Bearing/Tolerated Left Lower Extremity: Left Weight Bearing/Tolerated Exercises Supine Ex: Ankle pumps, Heel Slides, Straight leg raise, Hip abd/add Supine Reps: 10 Seated Therapy Exercises: Sit to stand (3 reps), Long arc quads, Hip flexion Seated Reps: 10 Standing: Hamstring curls, Heel/toe raises, Marching Standing Reps: 10 Assessment Patient tolerated all exercises well. Required some assistance for SLR with RLE and reminders to keep legs from turning out while in supine. Patient performed sit to stand repetitions with minimal assistance with bed height raised. Unable to stand from lowered bed. Bed height was lowered slightly during final repetition with increased difficulty. Patient performed bed mobility modified independent. PT Short Term Goals Short Term Goals Time Frame: Aug 02, 2019 Wheelchair Distance: 50' x2 PT Vacuum Applicator Operator Goals Alf Goals PT Vacuum Applicator Operator Goals Time Frame: Aug 16, 2019 Sit to Lying (QC): 3 (Olu) Lying-Sitting on Side/Bed(QC): 3 (Kofi) Sit to Stand (QC): 1 Roll Left to Right (QC): 3 (Olu) Chair/Tgi-mq-Qqnpb Xfer(QC): 3 (Olu) Car Transfer (QC): 1 Walk 10 feet (QC): 88 Walk 10ft-Uneven Surface(QC): 88 Walk 50ft with 2 Turns (QC): 88 Walk 150 ft (QC): 88 Wheel 50 feet with 2 turns (QC: 5 1 Step (curb) (QC): 88 4 Steps (QC): 88 12 Steps (QC): 88 Picking up an Object (QC): 88 PT Plan Treatment/Plan Treatment Plan: Continue Plan of Care Treatment Plan: Bed Mobility, Education, Functional Activity Jesus Alberto, Functional Strength, Group Therapy, Gait, Safety, Therapeutic Exercise, Transfers Treatment Duration: Aug 16, 2019 Frequency: At least 5 of 7 days/Wk (IRF) Estimated Hrs Per Day: 1.5 hours per day Patient and/or Family Agrees t: Yes Safety Risks/Education Patient Education: Transfer Techniques, Safety Issues Teaching Recipient: Patient Teaching Methods: Discussion Response to Teaching: Verbalize Understanding, Return Demonstration Time/GCodes Time In: 1256 Time Out: 1311 Total Billed Treatment Time: 15 Total Billed Treatment 1 visit EX 15min MINOR ABDULLAHI [employer]IBILITY AND OCCUPANCY INTERVIEWER Aug 25, 2019 13:55 POS
[2019-08-25 18:00] VITALS: BP 111/71
[2019-08-25] MEDS: CYCLOBENZAPRINE 10 MG (FLEXERIL) TAB PO PRN (18:20)
--- NOTE | 2019-08-25 19:10 | NUR ---
bedside report received from JATINDER KERR, assume care of pt
[2019-08-25] MEDS: MELATONIN 3 MG TABLET PO PRN (20:43)
[2019-08-25] MEDS: TERAZOSIN 5 MG (HYTRIN) CAPSULE PO SCH (20:43)
[2019-08-25] MEDS: risperiDONE 0.25 MG (RisperDAL) TAB PO SCH (20:43)
[2019-08-25] MEDS: DONEPEZIL 10 MG (ARICEPT) TAB PO SCH (20:43)
--- NOTE | 2019-08-25 20:44 | NUR ---
pt refused miralax, Senokot & Dulcolax suppository, took Surfak 240mg, c/o pain in back level 7/10 on numeric scale, Lortab 5/325 1 tab given, bacitracin ointment to back & new dressing applied
--- NOTE | 2019-08-25 21:30 | NUR ---
resting quietly in bed, pain level 0/10 on flacc scale
[2019-08-26 05:22] VITALS: BP 109/69
[2019-08-26] MEDS: LACTOBACILLUS ACIDOPHILUS (PROBIOTIC) CAPSULE PO SCH ×3 (06:21→16:45)
[2019-08-26] MEDS: PANTOPRAZOLE 40 MG (PROTONIX) TAB PO SCH (06:21)
--- NOTE | 2019-08-26 07:06 | NUR ---
BEDSIDE REPORT GIVEN TO PRESLEY KERR
--- NOTE | 2019-08-26 08:13 | Occupational Ther Daily Note ---
OT Current Status-Daily Note Subjective Pt upright in w/c finishing breakfast at start of OT session. Agreeable to OT tx with focus on UE strengthening and exercises. Pt did not verbalize pain rating during session. Mental Status/Objective Patient Orientation: Person, Place, Time, Situation ADL-Treatment Therapy Code Descriptions/Definitions Functional [place] Measure: 0=Not Assessed/NA 4=Minimal Assistance 1=Total Assistance 5=Supervision or Setup 2=Maximal Assistance 6=Modified [place] 3=Moderate Assistance 7=Complete IndependenceSCALE: Activities may be completed with or without assistive devices. 8-Kgxizgdjgi-rhnwkwg completes the activity by him/herself with no assistance from a helper. 5-Set-up or Clean-up Assistance-helper sets up or cleans up; patient completes activity. Cisco assists only prior to or following the activity. 4-Supervision or Touching Assistance-helper provides verbal cues and/or touching/steadying and/or contact guard assistance as patient completes activity. Assistance may be provided throughout the activity or intermittently. 3-Partial/Moderate Assistance-helper does LESS THAN HALF the effort. Cisco lifts, holds or supports trunk or limbs, but provides less than half the effort. 2-Substantial/Maximal Assistance-helper does MORE THAN HALF the effort. Cisco lifts or holds trunk or limbs and provides more than half the effort. 9-Epellxlvn-winznd does ALL the effort. Patient does none of the effort to complete the activity. Or, the assistance of 2 or more helpers is required for the patient to complete the activity. If activity was not attempted, code reason: 7-Patient Refused. 9-Not Applicable-not attempted and the patient did not perform the activity before the current illness, exacerbation or injury. 10-Not Attempted due to Environmental Limitations-(lack of equipment, weather restraints, etc.). 88-Not Attempted due to Medical Conditions or Safety Concerns. Eating (QC): 6 (Pt reported he was able to open all containers and eat breakfast without assistance prior to start of OT session.) Other Treatment Pt upright in w/c at start of OT session. Pt used FWW to perform functional mobility from his room to the therapy gym with CGA during ambulation. Pt then performed [id number], min resistance on arm bike in order to increase UE strength and functional endurance. Pt then performed nuts and bolts activity while standing at FWW, pt able to remove 4 nuts/bolts in 1 min standing trial before requiring a rest break, pt then completed another standing trial removing 3 nuts/bolts in 45 seconds. Pt expressed fatigue with standing, completing nuts/bolts seated at w/c. In order to increase UE strength/endurance for functional activities, pt then placed x100 into foam pegboard, alternating R/L UE with 1lb wrist cuff on each wrist. Pt did not require any rest breaks during task. Pt then used FWW to perform functional mobility back to his room, CGA. Pt then sat EOB and transferred sit to supine with SBA. Post OT session, pt laying in bed, call light in reach and all needs met. Education OT Patient Education: Energy conservation, Exercise program, Progress toward Goal/Update tx plan, Purpose of tx/functional activities, Transfer techniques Teaching Recipient: Patient Teaching Methods: Demonstration Response to Teaching: Verbalize Understanding OT Short Term Goals Short Term Goals Upper Body Dressing(FIM): 4 Lower Body Dressing(FIM): 4 Toilet/Commode Transfer(FIM): 4 Additional Short Term Goals: 1-Demonstrate ADL Tasks, 2-Verbalize Un derstanding, 3-ImproveStrength/Jesus Alberto 1=Demonstrate adherence to instructed precautions during ADL tasks. 2=Patient will verbalize/demonstrate understanding of assistive devices/modifications for ADL. 3=Patient will improve strength/tolerance for activity to enable patient to perform ADL's. OT Jail Goals Jail Goals Time Frame: Sep 13, 2019 Eating (QC): 6 (met) Oral Hygiene (QC): 6 (met) Shower/Bathe Self (QC): 6 (not met) Upper Body Dressing (QC): 6 (not met) Lower Body Dressing (QC): 5 (not met) On/Off Footwear (QC): 6 (met) Toileting Hygiene (QC): 5 (not met) Toilet/Commode Transfer (QC): 5 (not met) Additional Goals: 1-Demonstrate ADL Tasks, 2-Verbalize Understanding, 3- ImproveStrength/Jesus Alberto 1=Demonstrate adherence to instructed precautions during ADL tasks. 2=Patient will verbalize/demonstrate understanding of assistive devices/modifications for ADL. 3=Patient will improve strength/tolerance for activity to enable patient to perform ADL's. OT Education/Plan Problem List/Assessment Assessment: Decreased Activ Tolerance, Decreased UE Strength, Impaired Funct Balance, Impaired I ADL's, Impaired Self-Care Skills Discharge Recommendations Plan/Recommendations: Continue POC Treatment Plan/Plan of Care Treatment,Training & Education: Yes Patient would benefit from OT for education, treatment and training to promote independence in ADL's, mobility, safety and/or upper extremity function for ADL's. Plan of Care: ADL Retraining, Caregiver Training, Concurrent Therapy, Functional Mobility, Group Exercise/Act as Ind, UE Funct Exercise/Act, W/C Management Training Treatment Duration: Jul 27, 2019 Frequency: At least 5 of 7 days/Wk (IRF) Estimated Hrs Per Day: 1.5 hours per day Agreement: Yes Rehab Potential: Good Time/GCodes Start Time: 08:00 Stop Time: 09:00 Total Time Billed (hr/min): 60 Billed Treatment Time 1, EX x15min, FA 3 x45min RACHID GONZALES OT Aug 26, 2019 08:13 POS
--- NOTE | 2019-08-26 08:29 | Cardiology Progress Note ---
Subjective Date Seen by Provider: Aug 26, 2019 Time Seen by Provider: 08:28 Subjective/Events-last exam patient is receiving therapy, feeling well, mild back pain Review of Systems General: No Chills, No Night Sweats, No Fatigue, No Malaise, No Appetite, No Other HEENT: No Head Aches, No Visual Changes, No Eye Pain, No Ear Pain, No Dysphasia, No Sinus Congestion, No Post Nasal Drip, No Sore Throat, No Other Pulmonary: No Dyspnea, No Cough, No Pleuritic Chest Pain, No Other Cardiovascular: No: Chest Pain, Palpitations, Orthopnea, Paroxysmal Noc. Dyspnea, Edema, Lt Headedness, Other Objective-Cardiology Exam Last Set of Vital Signs Vital Signs 08/26/19 05:22 Temp 36.0 Pulse 64 Resp 18 B/P (MAP) 109/69 (82) Pulse Ox 96 O2 Delivery Room Air Capillary Refill : Less Than 3 Seconds I&O Intake and Output 08/26/19 00:00 Intake Total 450 ml Output Total 375 ml Balance 75 ml Intake Oral 450 ml Output Urine Total 375 ml # Voids 3 General: Alert, Oriented X3 HEENT: Atraumatic, EOMI Neck: Supple, No JVD, No Thyromegaly Lungs: Clear to Auscultation, Normal Air Movement Heart: Regular Rate, Normal S1, Normal S2, No Murmurs Abdomen: Normal Bowel Sounds, Soft, No Tenderness, No Hepatosplenomegaly, No Masses Extremities: No Clubbing, No Tenderness/Swelling Skin: No Rashes, No Breakdown, No Significant Lesion Neuro: Normal Speech, Normal Tone, Sensation Intact Psych/Mental Status: Mental Status NL A/P-Cardiology Admission Diagnosis Spinal Stenosis Chest pain CAD HTN Assessment/Plan Spinal stenosis, slipped disc, status post L2-3 laminectomy done on July 20, 2019, back pain improving. Continue PT/OT Chest pain, history of chronic stable angina, no further episodes of chest pain reported. Continue to monitor Coronary artery disease, history of CABG, multiple intervention the past, recent cardiac catheterization with drug-eluting stent deployment to the vein graft to the diagonal artery, had a patent GRACE to LAD with patent stent beyond the anastomosis in the LAD, small vessel disease otherwise done by Dr. Perez in [facility], currently back on Plavix. Continue to monitor Hypotension, probably secondary to pain medication and muscle relaxant, unable to tolerate any antihypertensive medication at this time, continue to monitor. Sinus bradycardia, better at this time, off beta blockers. Hyperlipidemia, maintained on statin Generalized weakness, lower and upper extremity weakness, cervical spinal stenosis with slipped disc, s/p L 2-[address] Bhatt. Dementia Clinical Quality Measures DVT/VTE Risk/Contraindication: Risk Factor Score Per Nursin RFS Level Per Nursing on Admit: 4+=Very High CHRISTIANO DAVIS MD Aug 26, 2019 08:29 POS
--- NOTE | 2019-08-26 09:00 | NUR ---
STATES LESS PAIN IN BACK INCISION SINCE DEBRIDEMENT. APPEARS IN [facility]IRITS TODAY.
[2019-08-26] MEDS: CLOPIDOGREL 75 MG (PLAVIX) TABLET PO SCH (09:31)
[2019-08-26] MEDS: TOLTERODINE LA 4 MG (DETROL) CAP PO SCH ×2 (09:31→21:05)
[2019-08-26] MEDS: LORATADINE (CLARITIN) 10 MG TAB PO SCH (09:31)
[2019-08-26] MEDS: DULoxetine 30 MG (CYMBALTA) CAP PO SCH (09:31)
[2019-08-26] MEDS: ASPIRIN E.C. 81 MG (ECOTRIN) TAB PO SCH (09:31)
[2019-08-26] MEDS: SENNA W/DOCUSATE (SENOKOT S) TABLET PO SCH ×2 (09:32→21:00)
[2019-08-26] MEDS: DOCUSATE CALCIUM 240 MG (SURFAK) CAP PO SCH ×2 (09:32→21:00)
[2019-08-26] MEDS: BISACODYL 10 MG SUPP (DULCOLAX) PR SCH ×2 (09:32→21:00)
[2019-08-26] MEDS: POLYETHYLENE GLYCOL 17 GM (MIRALAX) PACK PO SCH ×2 (09:32→21:00)
[2019-08-26] MEDS: BACITRACIN OINTMENT 28 GM TUBE TOP SCH ×2 (09:33→21:07)
--- NOTE | 2019-08-26 10:29 | Speech Therapy Daily Note ---
Speech Daily Progress Note Subjective Date Seen by Provider: Aug 26, 2019 Time Seen by Provider: 00:30 Patient was resting in his bed following his OT session. Objective Patient completed a series of safety awareness cards with unsafe scenarios he may encounter when he returns home at 90% with 5% verbal cues. Assessment Assessment Current Status: Good Progress Treatment Plan Continue Plan of Care Speech Short Term Goals Short Term Goals Short Term Goals 1) Patient will complete memory tasks related to his daily needs at 90% or greater, independently. 2) Patient will complete problem solving tasks related to his daily needs at 90% or greater, independently. 3) Patient will complete safety awareness tasks related to his daily needs at 90% or greater, independently. Speech [place] Goals [place] Goals Patient will improve cognitive-communication necessary for safety and daily living tasks with minimal assist. Speech-Plan Patient/Family Goals Patient/Family Goals: Patient plans on moving in with his grandaughter until he is strong enough to move back to his jail apartment. Treatment Plan Speech Therapy Treatment Plan: Continue Plan of Care Patient has made good progress with skilled therapies. Treatment Duration: Aug 31, 2019 Frequency: 5 times per week Estimated Hrs Per Day: .5 hour per day Rehab Potential: Good Barriers to Learning: Patient has mild cognitive deficits most of them have resolved with skilled therapy intervention. Pt/Family Agrees to Plan: Yes Safety Risks/Education Teaching Recipient: Patient Teaching Methods: Demonstration, Discussion Response to Teaching: Verbalize Understanding, Return Demonstration Education Topics Provided: Continued safety while inpatient as well as upon his return to his home. Time Speech Therapy Time In: 09:00 Speech Therapy Time Out: 09:30 Total Billed Time: 30 Billed Treatment Time [address] Aug 26, 2019 10:29 POS
--- NOTE | 2019-08-26 10:44 | Physical Therapy Daily Note ---
PT Daily Note-Current Subjective pt in bed pre-tx. pt agrees to PT this morning. Pt reports pain is okay this morning and rates it 5/10 in his low back. Appearance pt in bed post tx. pt with call light, room phone, tray table and all needs met at this time. Mental Status Patient Orientation: Person, Place, Time, Situation Transfers SCALE: Activities may be completed with or without assistive devices. 3-Dyvhhcqnwb-ouemreu completes the activity by him/herself with no assistance from a helper. 5-Set-up or Clean-up Assistance-helper sets up or cleans up; patient completes activity. [place] assists only prior to or following the activity. 4-Supervision or Touching Assistance-helper provides verbal cues and/or touching/steadying and/or contact guard assistance as patient completes activity. Assistance may be provided throughout the activity or intermittently. 3-Partial/Moderate Assistance-helper does LESS THAN HALF the effort. [place] lifts, holds or supports trunk or limbs, but provides less than half the effort. 2-Substantial/Maximal Assistance-helper does MORE THAN HALF the effort. [place] lifts or holds trunk or limbs and provides more than half the effort. 6-Mdibeaowi-kikwoz does ALL the effort. Patient does none of the effort to complete the activity. Or, the assistance of 2 or more helpers is required for the patient to complete the activity. If activity was not attempted, code reason: 7-Patient Refused. 9-Not Applicable-not attempted and the patient did not perform the activity before the current illness, exacerbation or injury. 10-Not Attempted due to Environmental Limitations-(lack of equipment, weather restraints, etc.). 88-Not Attempted due to Medical Conditions or Safety Concerns. Sit to Lying (QC): 4 (SBA) Sit to Stand (QC): 3 (Olu for all stands this date.) Weight Bearing Right Lower Extremity: Right Weight Bearing/Tolerated Left Lower Extremity: Left Weight Bearing/Tolerated Gait Training Does the Patient Walk?: Yes Distance: 100', 60' Walk 10 feet (QC): 4 (CGA) Walk 50 ft with 2 Turns(QC): 4 (CGA) Gait Assistive Device: FWW pt continues to rely heavily on his UE and FWW for gait. Wheelchair Training Does the Pt Use a Wheelchair?: Yes Wheelchair Distance: 3=150 ft Wheel 50 ft with 2 turns (QC): 6 Wheel 150 ft (QC): 6 Type of Wheelchair: Manual Exercises Seated Therapy Exercises: Ankle pumps, Long arc quads, Hip flexion Seated Reps: 20 NuStep Minutes: 10 NuStep Workload: 5 Treatments pt performed LE strengthening/endurance training, transfer training, skilled ambulation training, and education this date. Assessment Current Status: Good Progress Pt had once instance of his R knee buckling today during ambulation but pt required only CGA to maintain balance and restart ambulation. Pt only requires 1 standing rest break today and demonstrates increased augustni for activity today and appears less fatigued following this session. PT Short Term Goals Short Term Goals Time Frame: Aug 02, 2019 Wheelchair Distance: 50' x2 PT Skilled Nursing Goals Skilled Nursing Goals PT Diagnostic Cardiac Sonographer Goals Time Frame: Aug 16, 2019 Sit to Lying (QC): 3 (Olu) Lying-Sitting on Side/Bed(QC): 3 (Kofi) Sit to Stand (QC): 1 Roll Left to Right (QC): 3 (Olu) Chair/Scj-jz-Dpize Xfer(QC): 3 (Olu) Car Transfer (QC): 1 Walk 10 feet (QC): 88 Walk 10ft-Uneven Surface(QC): 88 Walk 50ft with 2 Turns (QC): 88 Walk 150 ft (QC): 88 Wheel 50 feet with 2 turns (QC: 5 1 Step (curb) (QC): 88 4 Steps (QC): 88 12 Steps (QC): 88 Picking up an Object (QC): 88 PT Plan Problem List Problem List: Activity Tolerance, Functional Strength, Safety, Balance, Gait, Transfer, Bed Mobility, ROM Treatment/Plan Treatment Plan: Continue Plan of Care Treatment Plan: Bed Mobility, Education, Functional Activity Jesus Alberto, Functional Strength, Group Therapy, Gait, Safety, Therapeutic Exercise, Transfers Treatment Duration: Aug 16, 2019 Frequency: At least 5 of 7 days/Wk (IRF) Estimated Hrs Per Day: 1.5 hours per day Patient and/or Family Agrees t: Yes Safety Risks/Education Patient Education: Gait Training, Transfer Techniques, Correct Positioning, W/C Management, Safety Issues Teaching Recipient: Patient Teaching Methods: Demonstration, Discussion Response to Teaching: Verbalize Understanding, Return Demonstration, Reinforcement Needed Time/GCodes Time In: 1000 Time Out: 1045 Total Billed Treatment Time: 45 Total Billed Treatment 1 visit EX 30' GT 15' ALANA CISNEROS PT Aug 26, 2019 10:44 POS
--- NOTE | 2019-08-26 10:46 | PM&R Progress Note ---
Subjective HPI/CC On Admission Date Seen by Provider: Aug 26, 2019 Time Seen by Provider: 08:45 CC: Cervical spine injury non-traumatic HPI: This is a 78yoWM who presented to the Hospital with significant compromise in function, was found to have significant cervical spine stenosis causing generalized weakness globally, that was complicated with delirium post- operatively in addition to a UTI diagnosis. Pt previously doctored with Dr. Ritu Danielson and did not see a regular senior accounts payable clerk although he has had Bypass surgery and has known CAD. Pt was doing well but had a lengthy acute care course and is in need of significant rehabilitation, prior to returning home. He seems to be very depressed, very tearful when I meet him and reports that he is about to turn 79 next month. I have tried to reassure him and I have put in a behavioral health consult in for him because of obvious tearfulness and overwhelmed feeling and loss of independence that he will need to be aggressively treated for in order to return home safely. Previously he used a walker for the past 6 months prior to admission, had lumbar spine surgery then was discharged home and home PT Collette Ramos evaluated the Pt to have such sev ere weakness that he was total care so he was sent to the ER for workup and from there thing progressed into cervical spine MRI showing severe stenosis and Dr. Bhatt performed surgery with good results but was so severe it was a dural tear during the surgery and he has become quite debilitated. He is urinating well, hasn't had a BM in several days so will need to work on that when he is admitted into the inpatient rehab unit. Overall he will be aggressively treated in order to re-gain his independence in order to return home. Subjective/Events-last exam Pt doing very well. Seems to be continuing to improve. Dr. Bhatt evaluated the back incision and did a bed-side debridement 3 days ago with two sutures and had no change in medication. Patient will need 24/7 care and will require residential placement but may improve enough to be able to go back home with his granddaughter which he ultimately wants to do Seems to really be improved since the delirium has completely resolved and the left leg radiculopathy has completely resolved. Blood pressure doing much better off meds Had a bowel movement yesterday Check meds and labs Reviewed therapy notes Conferred with net developer architect of Systems General: Fatigue Musculoskeletal: back pain Objective Exam Vital Signs Vital Signs Date Time Temp Pulse Resp B/P (MAP) Pulse Ox O2 Delivery O2 Flow Rate FiO2 08/26/19 08:00 Room Air 08/26/19 05:22 36.0 64 18 109/69 (82) 96 Capillary Refill : Less Than 3 Seconds General Appearance: No Apparent Distress, WD/WN, Chronically ill HEENT: PERRL/EOMI, Normal ENT Inspection, Pharynx Normal, Moist Mucous Membranes Neck: Full Range of Motion, Normal Inspection, Non Tender, Supple Respiratory: Chest Non Tender, Lungs Clear, Normal Breath Sounds, No Accessory Muscle Use, No Respiratory Distress Cardiovascular: Regular Rate, Rhythm, No Gallop, No Murmur Gastrointestinal: Normal Bowel Sounds, No Organomegaly, No Pulsatile Mass, Non Tender, Soft Back: Normal Inspection, No CVA Tenderness, Decreased Range of Motion (much improved today) Extremity: Normal Capillary Refill, Normal Inspection, Normal Range of Motion, Non Tender, No Calf Tenderness, No Pedal Edema Neurologic/Psychiatric: Alert, Oriented x3, Normal Mood/Affect, contact lens blocker II-XII Norm as Tested, Motor Weakness Skin: Normal Color, Warm/Dry Lymphatic: No Adenopathy Results/Procedures Lab Patient resulted labs reviewed. FIM Transfers Therapy Code Descriptions/Definitions Functional [place] Measure: 0=Not Assessed/NA 4=Minimal Assistance 1=Total Assistance 5=Supervision or Setup 2=Maximal Assistance 6=Modified [place] 3=Moderate Assistance 7=Complete IndependenceSCALE: Activities may be completed with or without assistive devices. 1-Eocskuqtdm-fxyzxoc completes the activity by him/herself with no assistance from a helper. 5-Set-up or Clean-up Assistance-helper sets up or cleans up; patient completes activity. [place] assists only prior to or following the activity. 4-Supervision or Touching Assistance-helper provides verbal cues and/or touching/steadying and/or contact guard assistance as patient completes activity. Assistance may be provided throughout the activity or intermittently. 3-Partial/Moderate Assistance-helper does LESS THAN HALF the effort. [place] lifts, holds or supports trunk or limbs, but provides less than half the effort. 2-Substantial/Maximal Assistance-helper does MORE THAN HALF the effort. [place] lifts or holds trunk or limbs and provides more than half the effort. 0-Pxqfpqees-durewb does ALL the effort. Patient does none of the effort to complete the activity. Or, the assistance of 2 or more helpers is required for the patient to complete the activity. If activity was not attempted, code reason: 7-Patient Refused. 9-Not Applicable-not attempted and the patient did not perform the activity before the current illness, exacerbation or injury. 10-Not Attempted due to Environmental Limitations-(lack of equipment, weather restraints, etc.). 88-Not Attempted due to Medical Conditions or Safety Concerns. Transfers (B, C, W/C) (FIM): 3 Roll Left to Right (QC): 6 Sit to Lying (QC): 4 Sit to Stand (QC): 3 (required raised bed height to stand) Chair/Jnu-gd-Rshhw Xfer(QC): 3 (Olu-CGA stand pivot with FWW) Bed to/from Chair: 5 Car Transfer (QC): 3 (Olu with slide board) Gait Training Does the Patient Walk?: Yes Gait (FIM): 5 Distance: 100', 50' Walk 10 feet (QC): 4 (SBA) Walk 50 ft with 2 Turns(QC): 4 (SBA) Walk 150 ft (QC): 4 (SBA) Walking 10ft/uneven surface-QC: 88 Gait Persons Needed: 1 Gait Assistive Device: FWW Wheelchair Training Does the Pt Use a Wheelchair?: Yes Wheelchair (FIM): 1 Wheelchair Distance: 3=150 ft Distance: 50' x2 Wheel 50 ft with 2 turns (QC): 6 Wheel 150 ft (QC): 6 Type of Wheelchair: Manual Stair Training 1 Step (curb) (QC): 88 4 Steps (QC): 88 12 Steps (QC): 88 Balance Picking up an Object (QC): 88 ADL-Treatment Eating (QC): 6 (Pt reported he was able to open all containers and eat breakfast without assistance prior to start of OT session.) Groomin (Pt brushed hair at bed level, he was able to gather hair brush from side table and complete task without assistance.) Oral Hygiene (QC): 6 Bathing Location: L Arm, R Arm, L Upper Leg, R Upper Leg, L Lower Leg (includ ing foot), R Lower Leg (including foot), Chest, Abdomen, Perineal Area Shower/Bathe Self (QC): 3 (Pt required assistance with buttocks for thoroughness. Pt completed task seated on shower bench.) Upper Body Dressing (QC): 5 (Pt required set up of shirt, able to don/doff seated on shower bench.) Lower Body Dressing (QC): 3 (Pt able to manage pants/underwear down and doff all parts. Pt required assistance managing pants/underwear up over hips post shower secondary to fatigue.) On/Off Footwear (QC): 2 (OT educated pt on using sock aid to don socks. OT assisted pt with doffing socks, & demo'd use of sock aid. Pt able to don sock on left foot using sock aid, required assistance with right foot secondary to dressing on heel of foot) Toileting Hygiene (QC): 2 (Pt able to manage pants/underwear down, required assistance with hygiene and managing clothing back up.) Toilet Transfer (QC): 3 (CGA for stand to sit, Min A sit to stand from BSC over toilet. ) Assessment/Plan Assessment and Plan Assess & Plan/Chief Complaint Assessment: Spinal cord trauma from severe stenosis Debility CAD Delirium now resolved s/p UTI completed treatment recurrent type Constipation related to surgery HTN HLP Cognitive deficit SLUMS Depression w/tearfulness Bladder incontinence improved on Dr Arana recritu Bowel incontinence improved now Delirium now resolved Plan: Monitor bowel and bladder incontinence IRF protocol Increase strength with IRF protocols BM regimen to hold due to loose stools Started antidepressant Monitor BP and holding most BP meds Dr Arana consultation is appreciated May be able to go home after DC after skilled care at discharge from inpatient rehabilitation since he needs 24/7 care Increase oral fluids Wound care evaluation of back incision and Dr Bhatt to evaluate for debridement (1) Spinal cord injury (2) Generalized Weakness (3) Cervical spinal stenosis Status: Acute (4) Neuroforaminal stenosis of spine Status: Acute (5) Essential (primary) hypertension Status: Chronic (6) Lumbar spinal stenosis Status: Acute (7) Slipped intervertebral disc Status: Acute (8) Delirium Status: Acute (9) Incidental durotomy Status: Acute (10) CAD (coronary artery disease) Status: Chronic YANETH REEDER DO Aug 26, 2019 10:46 POS
--- NOTE | 2019-08-26 14:54 | NUR ---
Reviewed weekly Care Team Conference with patient's daughter, Christa. She was agreeable to information discussed and recommendation fo patient not being alone, for safety sake. She did not have any recommendations/solutions to patient being alone throughout the daytime, upon returning home. Christa is agreeable to patient dismissing to [facility]. She is hopeful that his stay at [facility] will be short-term and he can eventually return home alone. Christa does prefer [facility] provide transportation on day of discharge. Will continue to follow.
--- NOTE | 2019-08-26 15:02 | Therapy Group Daily Note ---
Therapy Daily Group Note Patient Education Topic Home Safety, Other List Below (hand washing) Exercises LE Seated Exercise, UE Exercise Session Ratio (pt:therapist): 7:2 Goal of Session: Home Safety Strategies, UE/LE Strengthing, Other (list) (handwashing) Goal Met for this Session: Yes Pt Benefit of Group: Contributions to Others, F/U Use of Strategies @Home, Increased Functional Safety, Increased Functional Strength, Improved Cognition, Recognition of Peers, Socialization Other/Notes Pt propelled w/c to [facility] for OT/PT group. Group consisted of introductions (name, place born, favorite fall food), socialization, UE/LE seated exercises, educational topics of hand washing and home safety. Pt able to introduce self appropriately and actively listened to peers. Pt was able to complete exercises and tolerated well. Pt acknowledge understanding of educational topics by giving own personal strategies and stories pertaining to topic. After therapy, pt lying in bed with call light/phone in reach. All needs met in room. Start Time: 13:00 Stop Time: 14:10 Total Billed Treatment Time: 70 Total Billed Treatment 1-SNEHA AMAYA Aug 26, 2019 15:02 POS
[2019-08-26] MEDS: HYDROcodone/APAP 5 MG/325 MG (LORTAB) TAB PO PRN (16:46)
[2019-08-26 18:30] VITALS: BP 108/79
[2019-08-26] MEDS: CYCLOBENZAPRINE 10 MG (FLEXERIL) TAB PO PRN (21:04)
[2019-08-26] MEDS: TERAZOSIN 5 MG (HYTRIN) CAPSULE PO SCH (21:05)
[2019-08-26] MEDS: MELATONIN 3 MG TABLET PO PRN (21:05)
[2019-08-26] MEDS: risperiDONE 0.25 MG (RisperDAL) TAB PO SCH (21:05)
[2019-08-26] MEDS: DONEPEZIL 10 MG (ARICEPT) TAB PO SCH (21:05)
[2019-08-27 06:30] VITALS: BP 114/74
[2019-08-27] MEDS: LACTOBACILLUS ACIDOPHILUS (PROBIOTIC) CAPSULE PO SCH ×3 (06:39→16:56)
[2019-08-27] MEDS: PANTOPRAZOLE 40 MG (PROTONIX) TAB PO SCH (06:39)
[2019-08-27] MEDS: DOCUSATE CALCIUM 240 MG (SURFAK) CAP PO SCH ×2 (09:16→20:53)
[2019-08-27] MEDS: LORATADINE (CLARITIN) 10 MG TAB PO SCH (09:16)
[2019-08-27] MEDS: CYCLOBENZAPRINE 10 MG (FLEXERIL) TAB PO PRN (09:16)
[2019-08-27] MEDS: CLOPIDOGREL 75 MG (PLAVIX) TABLET PO SCH (09:16)
[2019-08-27] MEDS: LACTULOSE SYRUP 10GM/15ML (ENULOSE) 30ML UDC PO PRN (09:17)
[2019-08-27] MEDS: DULoxetine 30 MG (CYMBALTA) CAP PO SCH (09:17)
[2019-08-27] MEDS: TOLTERODINE LA 4 MG (DETROL) CAP PO SCH ×2 (09:17→20:55)
[2019-08-27] MEDS: ASPIRIN E.C. 81 MG (ECOTRIN) TAB PO SCH (09:17)
[2019-08-27] MEDS: BISACODYL 10 MG SUPP (DULCOLAX) PR SCH ×2 (09:20→20:53)
[2019-08-27] MEDS: BACITRACIN OINTMENT 28 GM TUBE TOP SCH ×2 (09:20→20:56)
[2019-08-27] MEDS: POLYETHYLENE GLYCOL 17 GM (MIRALAX) PACK PO SCH ×2 (09:20→20:53)
[2019-08-27] MEDS: SENNA W/DOCUSATE (SENOKOT S) TABLET PO SCH ×2 (09:22→20:53)
--- NOTE | 2019-08-27 11:47 | PM&R Progress Note ---
Subjective HPI/CC On Admission Date Seen by Provider: Aug 27, 2019 Time Seen by Provider: 11:30 CC: Cervical spine injury non-traumatic HPI: This is a 78yoWM who presented to the Hospital with significant compromise in function, was found to have significant cervical spine stenosis causing generalized weakness globally, that was complicated with delirium post- operatively in addition to a UTI diagnosis. Pt previously doctored with Dr. Nickolas Danielson and did not see a regular cutting supervisor although he has had Bypass surgery and has known CAD. Pt was doing well but had a lengthy acute care course and is in need of significant rehabilitation, prior to returning home. He seems to be very depressed, very tearful when I meet him and reports that he is about to turn 79 next month. I have tried to reassure him and I have put in a behavioral health consult in for him because of obvious tearfulness and overwhelmed feeling and loss of independence that he will need to be aggressively treated for in order to return home safely. Previously he used a walker for the past 6 months prior to admission, had lumbar spine surgery then was discharged home and home PT Collette Ramos evaluated the Pt to have such sev ere weakness that he was total care so he was sent to the ER for workup and from there thing progressed into cervical spine MRI showing severe stenosis and Dr. Bhatt performed surgery with good results but was so severe it was a dural tear during the surgery and he has become quite debilitated. He is urinating well, hasn't had a BM in several days so will need to work on that when he is admitted into the inpatient rehab unit. Overall he will be aggressively treated in order to re-gain his independence in order to return home. Subjective/Events-last exam Pt doing very well. Seems to be continuing to improve. Blood pressure doing much better off meds Incision is improved Had a bowel movement yesterday Check meds and labs Reviewed therapy notes Conferred with dancing instructor of Systems General: Fatigue Musculoskeletal: back pain Objective Exam Vital Signs Vital Signs Date Time Temp Pulse Resp B/P (MAP) Pulse Ox O2 Delivery O2 Flow Rate FiO2 08/27/19 08:00 Room Air 08/27/19 06:30 36.6 78 20 114/74 (87) 98 Capillary Refill : Less Than 3 Seconds General Appearance: No Apparent Distress, WD/WN, Chronically ill HEENT: PERRL/EOMI, Normal ENT Inspection, Pharynx Normal, Moist Mucous Membranes Neck: Full Range of Motion, Normal Inspection, Non Tender, Supple Respiratory: Chest Non Tender, Lungs Clear, Normal Breath Sounds, No Accessory Muscle Use, No Respiratory Distress Cardiovascular: Regular Rate, Rhythm, No Gallop, No Murmur Gastrointestinal: Normal Bowel Sounds, No Organomegaly, No Pulsatile Mass, Non Tender, Soft Back: Normal Inspection, No CVA Tenderness, Decreased Range of Motion (much improved today) Extremity: Normal Capillary Refill, Normal Inspection, Normal Range of Motion, Non Tender, No Calf Tenderness, No Pedal Edema Neurologic/Psychiatric: Alert, Oriented x3, Normal Mood/Affect, dealer development manager II-XII Norm as Tested, Motor Weakness Skin: Normal Color, Warm/Dry Lymphatic: No Adenopathy Results/Procedures Lab Patient resulted labs reviewed. FIM Transfers Therapy Code Descriptions/Definitions Functional [place] Measure: 0=Not Assessed/NA 4=Minimal Assistance 1=Total Assistance 5=Supervision or Setup 2=Maximal Assistance 6=Modified [place] 3=Moderate Assistance 7=Complete IndependenceSCALE: Activities may be completed with or without assistive devices. 5-Qltaciwyhk-xymiumi completes the activity by him/herself with no assistance from a helper. 5-Set-up or Clean-up Assistance-helper sets up or cleans up; patient completes activity. [place] assists only prior to or following the activity. 4-Supervision or Touching Assistance-helper provides verbal cues and/or touching/steadying and/or contact guard assistance as patient completes activity. Assistance may be provided throughout the activity or intermittently. 3-Partial/Moderate Assistance-helper does LESS THAN HALF the effort. [place] lifts, holds or supports trunk or limbs, but provides less than half the effort. 2-Substantial/Maximal Assistance-helper does MORE THAN HALF the effort. [place] lifts or holds trunk or limbs and provides more than half the effort. 1-Femwbrcza-ixnrwv does ALL the effort. Patient does none of the effort to complete the activity. Or, the assistance of 2 or more helpers is required for the patient to complete the activity. If activity was not attempted, code reason: 7-Patient Refused. 9-Not Applicable-not attempted and the patient did not perform the activity before the current illness, exacerbation or injury. 10-Not Attempted due to Environmental Limitations-(lack of equipment, weather restraints, etc.). 88-Not Attempted due to Medical Conditions or Safety Concerns. Transfers (B, C, W/C) (FIM): 3 Roll Left to Right (QC): 6 Sit to Lying (QC): 4 (SBA) Sit to Stand (QC): 3 (Olu for all stands this date.) Chair/Nne-du-Zfbwg Xfer(QC): 3 (Olu-CGA stand pivot with FWW) Bed to/from Chair: 5 Car Transfer (QC): 3 (Olu with slide board) Gait Training Does the Patient Walk?: Yes Gait (FIM): 5 Distance: 100', 60' Walk 10 feet (QC): 4 (CGA) Walk 50 ft with 2 Turns(QC): 4 (CGA) Walk 150 ft (QC): 4 (SBA) Walking 10ft/uneven surface-QC: 88 Gait Persons Needed: 1 Gait Assistive Device: FWW Wheelchair Training Does the Pt Use a Wheelchair?: Yes Wheelchair (FIM): 1 Wheelchair Distance: 3=150 ft Distance: 50' x2 Wheel 50 ft with 2 turns (QC): 6 Wheel 150 ft (QC): 6 Type of Wheelchair: Manual Stair Training 1 Step (curb) (QC): 88 4 Steps (QC): 88 12 Steps (QC): 88 Balance Picking up an Object (QC): 88 ADL-Treatment Eating (QC): 6 (Pt reported he was able to open all containers and eat breakfast without assistance prior to start of OT session.) Groomin (Pt brushed hair at bed level, he was able to gather hair brush from side table and complete task without assistance.) Oral Hygiene (QC): 6 Bathing Location: L Arm, R Arm, L Upper Leg, R Upper Leg, L Lower Leg (including foot), R Lower Leg (including foot), Chest, Abdomen, Perineal Area Shower/Bathe Self (QC): 3 (Pt required assistance with buttocks for thoroughness. Pt completed task seated on shower bench.) Upper Body Dressing (QC): 5 (Pt required set up of shirt, able to don/doff seated on shower bench.) Lower Body Dressing (QC): 3 (Pt able to manage pants/underwear down and doff all parts. Pt required assistance managing pants/underwear up over hips post shower secondary to fatigue.) On/Off Footwear (QC): 2 (OT educated pt on using sock aid to don socks. OT assisted pt with doffing socks, & demo'd use of sock aid. Pt able to don sock on left foot using sock aid, required assistance with right foot secondary to dressing on heel of foot) Toileting Hygiene (QC): 2 (Pt able to manage pants/underwear down, required assistance with hygiene and managing clothing back up.) Toilet Transfer (QC): 3 (CGA for stand to sit, Min A sit to stand from [facility] over toilet. ) Assessment/Plan Assessment and Plan Assess & Plan/Chief Complaint Assessment: Spinal cord trauma from severe stenosis Debility CAD Delirium now resolved s/p UTI completed treatment recurrent type Constipation related to surgery HTN HLP Cognitive deficit SLUMS Depression w/tearfulness Bladder incontinence improved on Dr Yasmeen cash Bowel incontinence improved now Delirium now resolved Plan: Monitor bowel and bladder incontinence IRF protocol Increase strength with IRF protocols BM regimen to hold due to loose stools Started antidepressant Monitor BP and holding most BP meds Dr Arana consultation is appreciated May be able to go home after DC after skilled care at discharge from inpatient rehabilitation since he needs 24/7 care Increase oral fluids Wound care evaluation of back incision and Dr Bhatt to evaluate for debridement (1) Spinal cord injury (2) Generalized Weakness (3) Cervical spinal stenosis Status: Acute (4) Neuroforaminal stenosis of spine Status: Acute (5) Essential (primary) hypertension Status: Chronic (6) Lumbar spinal stenosis Status: Acute (7) Slipped intervertebral disc Status: Acute (8) Delirium Status: Acute (9) Incidental durotomy Status: Acute (10) CAD (coronary artery disease) Status: Chronic YANETH REEDER DO Aug 27, 2019 11:46 POS
[2019-08-27] MEDS: HYDROcodone/APAP 5 MG/325 MG (LORTAB) TAB PO PRN ×3 (12:04→18:19)
--- NOTE | 2019-08-27 12:45 | Physical Therapy Daily Note ---
PT Daily Note-Current Subjective Pt agreeable and denies pain. Pt reports continued improvement in (R) LE mobility and walking. Mental Status Patient Orientation: Person, Place, Situation Transfers SCALE: Activities may be completed with or without assistive devices. 0-Ftwinpicdu-yqwwrli completes the activity by him/herself with no assistance from a helper. 5-Set-up or Clean-up Assistance-helper sets up or cleans up; patient completes activity. [place] assists only prior to or following the activity. 4-Supervision or Touching Assistance-helper provides verbal cues and/or touching/steadying and/or contact guard assistance as patient completes activity. Assistance may be provided throughout the activity or intermittently. 3-Partial/Moderate Assistance-helper does LESS THAN HALF the effort. [place] lifts, holds or supports trunk or limbs, but provides less than half the effort. 2-Substantial/Maximal Assistance-helper does MORE THAN HALF the effort. [place] lifts or holds trunk or limbs and provides more than half the effort. 6-Fsuhikjru-ovmhnc does ALL the effort. Patient does none of the effort to complete the activity. Or, the assistance of 2 or more helpers is required for the patient to complete the activity. If activity was not attempted, code reason: 7-Patient Refused. 9-Not Applicable-not attempted and the patient did not perform the activity before the current illness, exacerbation or injury. 10-Not Attempted due to Environmental Limitations-(lack of equipment, weather restraints, etc.). 88-Not Attempted due to Medical Conditions or Safety Concerns. Weight Bearing Right Lower Extremity: Right Weight Bearing/Tolerated Left Lower Extremity: Left Weight Bearing/Tolerated Treatments Pt seen for ther ex in supine and sitting x 20 each (B) LE all planes. Pt amb with FWW x 200ft with pt c/o his knees feeling like they may buckle. Close f/u of W/C throughout gait training. Practiced sit to stand from elevated bed x 5 reps at end of treatment. Pt back to bed with call light and all needs met. Assessment Current Status: Good Progress Pt demonstrated safe mobility and good ambulation despite c/o feeling like his knees were going to buckle. No visible buckling of knees. Pt requires SBA-CGA for all mobility for safety. Pt uses hands to move (R) LE at times in/out of bed, otherwise good active movement of (R) LE. Strength steadily improving per pt. Pt would benefit from continued strengthening, balance and endurance training. PT Short Term Goals Short Term Goals Time Frame: Aug 02, 2019 Wheelchair Distance: 50' x2 PT Twister Operator Goals Twister Operator Goals PT Twister Operator Goals Time Frame: Aug 16, 2019 Sit to Lying (QC): 3 (Olu) Lying-Sitting on Side/Bed(QC): 3 (Kofi) Sit to Stand (QC): 1 Roll Left to Right (QC): 3 (Olu) Chair/Pcm-xp-Wtgig Xfer(QC): 3 (Olu) Car Transfer (QC): 1 Walk 10 feet (QC): 88 Walk 10ft-Uneven Surface(QC): 88 Walk 50ft with 2 Turns (QC): 88 Walk 150 ft (QC): 88 Wheel 50 feet with 2 turns (QC: 5 1 Step (curb) (QC): 88 4 Steps (QC): 88 12 Steps (QC): 88 Picking up an Object (QC): 88 PT Plan Treatment/Plan Treatment Plan: Continue Plan of Care Treatment Plan: Bed Mobility, Education, Functional Activity Jesus Alberto, Functional Strength, Group Therapy, Gait, Safety, Therapeutic Exercise, Transfers Treatment Duration: Aug 16, 2019 Frequency: At least 5 of 7 days/Wk (IRF) Estimated Hrs Per Day: 1.5 hours per day Patient and/or Family Agrees t: Yes Time/GCodes Time In: 805 Time Out: 830 Total Billed Treatment Time: 25 Total Billed Treatment 1, gait 15', ther ex 10' RISHI DAVIS CPTA Aug 27, 2019 12:45 POS
[2019-08-27 17:18] VITALS: BP 104/65
[2019-08-27] MEDS: TERAZOSIN 5 MG (HYTRIN) CAPSULE PO SCH (20:51)
[2019-08-27] MEDS: risperiDONE 0.25 MG (RisperDAL) TAB PO SCH (20:51)
[2019-08-27] MEDS: DONEPEZIL 10 MG (ARICEPT) TAB PO SCH (20:51)
--- NOTE | 2019-08-27 21:00 | NUR ---
CONTINUES TO FEEL INCISIONAL PAIN IMPROVED SINCE DEBRIDEMENT. INCONTINENCY IMPROVED.
--- NOTE | 2019-08-28 02:00 | NUR ---
DAYLIGHT SAVINGS TIME - TIME ADJUSTMENT.
[2019-08-28 05:46] VITALS: BP 100/64
[2019-08-28] MEDS: PANTOPRAZOLE 40 MG (PROTONIX) TAB PO SCH (06:13)
[2019-08-28] MEDS: LACTOBACILLUS ACIDOPHILUS (PROBIOTIC) CAPSULE PO SCH ×3 (06:13→17:21)
[2019-08-28] MEDS: DULoxetine 30 MG (CYMBALTA) CAP PO SCH (10:01)
[2019-08-28] MEDS: DOCUSATE CALCIUM 240 MG (SURFAK) CAP PO SCH ×2 (10:02→19:32)
[2019-08-28] MEDS: ASPIRIN E.C. 81 MG (ECOTRIN) TAB PO SCH (10:03)
[2019-08-28] MEDS: TOLTERODINE LA 4 MG (DETROL) CAP PO SCH ×2 (10:03→19:32)
[2019-08-28] MEDS: SENNA W/DOCUSATE (SENOKOT S) TABLET PO SCH ×2 (10:03→19:33)
[2019-08-28] MEDS: CLOPIDOGREL 75 MG (PLAVIX) TABLET PO SCH (10:03)
[2019-08-28] MEDS: LORATADINE (CLARITIN) 10 MG TAB PO SCH (10:03)
[2019-08-28] MEDS: POLYETHYLENE GLYCOL 17 GM (MIRALAX) PACK PO SCH ×2 (10:04→19:33)
[2019-08-28] MEDS: BISACODYL 10 MG SUPP (DULCOLAX) PR SCH ×2 (10:04→19:34)
[2019-08-28] MEDS: BACITRACIN OINTMENT 28 GM TUBE TOP SCH ×2 (10:05→19:49)
--- NOTE | 2019-08-28 14:00 | PM&R Progress Note ---
Subjective HPI/CC On Admission Date Seen by Provider: Aug 28, 2019 Time Seen by Provider: 13:30 CC: Cervical spine injury non-traumatic HPI: This is a 78yoWM who presented to the Hospital with significant compromise in function, was found to have significant cervical spine stenosis causing generalized weakness globally, that was complicated with delirium post- operatively in addition to a UTI diagnosis. Pt previously doctored with Dr. Ritu Danielson and did not see a regular after school program teacher although he has had Bypass surgery and has known CAD. Pt was doing well but had a lengthy acute care course and is in need of significant rehabilitation, prior to returning home. He seems to be very depressed, very tearful when I meet him and reports that he is about to turn 79 next month. I have tried to reassure him and I have put in a behavioral health consult in for him because of obvious tearfulness and overwhelmed feeling and loss of independence that he will need to be aggressively treated for in order to return home safely. Previously he used a walker for the past 6 months prior to admission, had lumbar spine surgery then was discharged home and home PT Collette Ramos evaluated the Pt to have such sev ere weakness that he was total care so he was sent to the ER for workup and from there thing progressed into cervical spine MRI showing severe stenosis and Dr. Bhatt performed surgery with good results but was so severe it was a dural tear during the surgery and he has become quite debilitated. He is urinating well, hasn't had a BM in several days so will need to work on that when he is admitted into the inpatient rehab unit. Overall he will be aggressively treated in order to re-gain his independence in order to return home. Subjective/Events-last exam Patient doing well Just had a good bowel movement Pain is well controlled Going to residential this week No falls or different type of pain Incision looks really good Minimal drainage from the wound Check meds and labs Reviewed therapy notes Conferred with dehydrator operator of Systems General: Fatigue Musculoskeletal: back pain Objective Exam Vital Signs Vital Signs Date Time Temp Pulse Resp B/P (MAP) Pulse Ox O2 Delivery O2 Flow Rate FiO2 08/28/19 09:21 92 Room Air 08/28/19 05:46 36.2 68 20 100/64 (76) Capillary Refill : Less Than 3 Seconds General Appearance: No Apparent Distress, WD/WN, Chronically ill HEENT: PERRL/EOMI, Normal ENT Inspection, Pharynx Normal, Moist Mucous Membranes Neck: Full Range of Motion, Normal Inspection, Non Tender, Supple Respiratory: Chest Non Tender, Lungs Clear, Normal Breath Sounds, No Accessory Muscle Use, No Respiratory Distress Cardiovascular: Regular Rate, Rhythm, No Gallop, No Murmur Gastrointestinal: Normal Bowel Sounds, No Organomegaly, No Pulsatile Mass, Non Tender, Soft Back: Normal Inspection, No CVA Tenderness, Decreased Range of Motion (much improved today) Extremity: Normal Capillary Refill, Normal Inspection, Normal Range of Motion, Non Tender, No Calf Tenderness, No Pedal Edema Neurologic/Psychiatric: Alert, Oriented x3, Normal Mood/Affect, guitar repairer II-XII Norm as Tested, Motor Weakness Skin: Normal Color, Warm/Dry Lymphatic: No Adenopathy Results/Procedures Lab Patient resulted labs reviewed. FIM Transfers Therapy Code Descriptions/Definitions Functional [place] Measure: 0=Not Assessed/NA 4=Minimal Assistance 1=Total Assistance 5=Supervision or Setup 2=Maximal Assistance 6=Modified [place] 3=Moderate Assistance 7=Complete IndependenceSCALE: Activities may be completed with or without assistive devices. 2-Adocwcbpbw-prluedx completes the activity by him/herself with no assistance from a helper. 5-Set-up or Clean-up Assistance-helper sets up or cleans up; patient completes activity. [place] assists only prior to or following the activity. 4-Supervision or Touching Assistance-helper provides verbal cues and/or touching/steadying and/or contact guard assistance as patient completes activity. Assistance may be provided throughout the activity or intermittently. 3-Partial/Moderate Assistance-helper does LESS THAN HALF the effort. [place] lifts, holds or supports trunk or limbs, but provides less than half the effort. 2-Substantial/Maximal Assistance-helper does MORE THAN HALF the effort. [place] lifts or holds trunk or limbs and provides more than half the effort. 7-Tnprqnqqr-ewrddv does ALL the effort. Patient does none of the effort to complete the activity. Or, the assistance of 2 or more helpers is required for the patient to complete the activity. If activity was not attempted, code reason: 7-Patient Refused. 9-Not Applicable-not attempted and the patient did not perform the activity before the current illness, exacerbation or injury. 10-Not Attempted due to Environmental Limitations-(lack of equipment, weather restraints, etc.). 88-Not Attempted due to Medical Conditions or Safety Concerns. Transfers (B, C, W/C) (FIM): 3 Roll Left to Right (QC): 6 Sit to Lying (QC): 4 (SBA) Sit to Stand (QC): 3 (Olu for all stands this date.) Chair/Kre-iv-Txpbn Xfer(QC): 3 (Olu-CGA stand pivot with FWW) Bed to/from Chair: 5 Car Transfer (QC): 3 (Olu with slide board) Gait Training Does the Patient Walk?: Yes Gait (FIM): 5 Distance: 100', 60' Walk 10 feet (QC): 4 (CGA) Walk 50 ft with 2 Turns(QC): 4 (CGA) Walk 150 ft (QC): 4 (SBA) Walking 10ft/uneven surface-QC: 88 Gait Persons Needed: 1 Gait Assistive Device: FWW Wheelchair Training Does the Pt Use a Wheelchair?: Yes Wheelchair (FIM): 1 Wheelchair Distance: 3=150 ft Distance: 50' x2 Wheel 50 ft with 2 turns (QC): 6 Wheel 150 ft (QC): 6 Type of Wheelchair: Manual Stair Training 1 Step (curb) (QC): 88 4 Steps (QC): 88 12 Steps (QC): 88 Balance Picking up an Object (QC): 88 ADL-Treatment Eating (QC): 6 (Pt reported he was able to open all containers and eat breakfast without assistance prior to start of OT session.) Groomin (Pt brushed hair at bed level, he was able to gather hair brush from side table and complete task without assistance.) Oral Hygiene (QC): 6 Bathing Location: L Arm, R Arm, L Upper Leg, R Upper Leg, L Lower Leg (including foot), R Lower Leg (including foot), Chest, Abdomen, Perineal Area Shower/Bathe Self (QC): 3 (Pt required assistance with buttocks for thoroughness. Pt completed task seated on shower bench.) Upper Body Dressing (QC): 5 (Pt required set up of shirt, able to don/doff seated on shower bench.) Lower Body Dressing (QC): 3 (Pt able to manage pants/underwear down and doff all parts. Pt required assistance managing pants/underwear up over hips post shower secondary to fatigue.) On/Off Footwear (QC): 2 (OT educated pt on using sock aid to don socks. OT assisted pt with doffing socks, & demo'd use of sock aid. Pt able to don sock on left foot using sock aid, required assistance with right foot secondary to dressing on heel of foot) Toileting Hygiene (QC): 2 (Pt able to manage pants/underwear down, required assistance with hygiene and managing clothing back up.) Toilet Transfer (QC): 3 (CGA for stand to sit, Min A sit to stand from [facility] over toilet. ) Assessment/Plan Assessment and Plan Assess & Plan/Chief Complaint Assessment: Spinal cord trauma from severe stenosis Debility CAD Delirium now resolved s/p UTI completed treatment recurrent type Constipation related to surgery HTN HLP Cognitive deficit SLUMS Depression w/tearfulness Bladder incontinence improved on Dr Arana recritu Bowel incontinence improved now Delirium now resolved Plan: Monitor bowel and bladder incontinence IRF protocol Increase strength with IRF protocols BM regimen to hold due to loose stools Started antidepressant Monitor BP and holding most BP meds Dr Arana consultation is appreciated May be able to go home after DC after skilled care at discharge from inpatient rehabilitation since he needs 24/7 care Increase oral fluids Wound care evaluation of back incision and Dr Bhatt to evaluate for debridement (1) Spinal cord injury (2) Generalized Weakness (3) Cervical spinal stenosis Status: Acute (4) Neuroforaminal stenosis of spine Status: Acute (5) Essential (primary) hypertension Status: Chronic (6) Lumbar spinal stenosis Status: Acute (7) Slipped intervertebral disc Status: Acute (8) Delirium Status: Acute (9) Incidental durotomy Status: Acute (10) CAD (coronary artery disease) Status: Chronic YANETH REEDER DO Aug 28, 2019 14:00 POS
[2019-08-28 17:02] VITALS: BP 133/76
[2019-08-28] MEDS: HYDROcodone/APAP 5 MG/325 MG (LORTAB) TAB PO PRN (19:32)
[2019-08-28] MEDS: risperiDONE 0.25 MG (RisperDAL) TAB PO SCH (19:32)
[2019-08-28] MEDS: DONEPEZIL 10 MG (ARICEPT) TAB PO SCH (19:33)
[2019-08-28] MEDS: TERAZOSIN 5 MG (HYTRIN) CAPSULE PO SCH (19:33)
[2019-08-29] MEDS: HYDROcodone/APAP 5 MG/325 MG (LORTAB) TAB PO PRN ×3 (05:24→20:31)
[2019-08-29 05:31] VITALS: BP 117/71
[2019-08-29 06:12] LABS: BASOPHILS # (AUTO) 0.1 10^3/uL (0.0-0.1); BASOPHILS % (AUTO) 2 % (0-10); EOSINOPHILS # (AUTO) 0.1 10^3/uL (0.0-0.3); EOSINOPHILS % (AUTO) 2 % (0-10); HEMATOCRIT 36 % (40-54); LYMPHOCYTES # (AUTO) 1.6 X 10^3 (1.0-4.0); LYMPHOCYTES % (AUTO) 30 % (12-44); MEAN CORPUSCULAR HEMOGLOBIN 31 PG (25-34); MEAN CORPUSCULAR HGB CONC 33 G/DL (32-36); MEAN CORPUSCULAR VOLUME 94 FL (80-99); MEAN PLATELET VOLUME 9.6 FL (7.4-10.4); MONOCYTES # (AUTO) 0.6 X 10^3 (0.0-1.0); MONOCYTES % (AUTO) 12 % (0-12); NEUTROPHILS # (AUTO) 2.8 X 10^3 (1.8-7.8); NEUTROPHILS % (AUTO) 53 % (42-75); PLATELET COUNT 272 10^3/uL (130-400); RED CELL DISTRIBUTION WIDTH 13.7 % (10.0-14.5); WHITE BLOOD COUNT 5.2 10^3/uL (4.3-11.0)
[2019-08-29 06:32] LABS: ALANINE AMINOTRANSFERASE 15 U/L (0-55); ALBUMIN 2.9 GM/DL (3.2-4.5); ALKALINE PHOSPHATASE 72 U/L (40-136); BILIRUBIN,TOTAL 0.3 MG/DL (0.1-1.0); BUN/CREATININE RATIO 24; CALCIUM 8.5 MG/DL (8.5-10.1); CARBON DIOXIDE 22 MMOL/L (21-32); CHLORIDE 109 MMOL/L (98-107); CREATININE SERUM 0.78 MG/DL (0.60-1.30); GFR ESTIMATED > 60; GLUCOSE 86 MG/DL (70-105); POTASSIUM 3.9 MMOL/L (3.6-5.0); SODIUM 142 MMOL/L (135-145)
[2019-08-29] MEDS: LACTOBACILLUS ACIDOPHILUS (PROBIOTIC) CAPSULE PO SCH ×3 (06:44→16:53)
[2019-08-29] MEDS: PANTOPRAZOLE 40 MG (PROTONIX) TAB PO SCH (06:44)
--- NOTE | 2019-08-29 08:18 | Cardiology Progress Note ---
Subjective Date Seen by Provider: Aug 29, 2019 Time Seen by Provider: 08:17 Subjective/Events-last exam Patient sitting up in bed, denies any chest pain or dyspnea. Review of Systems General: No Chills, No Night Sweats, No Fatigue, No Malaise, No Appetite, No Other HEENT: No Head Aches, No Visual Changes, No Eye Pain, No Ear Pain, No Dysphasia, No Sinus Congestion, No Post Nasal Drip, No Sore Throat, No Other Pulmonary: No Dyspnea, No Cough, No Pleuritic Chest Pain, No Other Cardiovascular: No: Chest Pain, Palpitations, Orthopnea, Paroxysmal Noc. Dyspnea, Edema, Lt Headedness, Other Objective-Cardiology Exam Last Set of Vital Signs Vital Signs 08/29/19 05:31 Temp 36.6 Pulse 68 Resp 18 B/P (MAP) 117/71 (86) Pulse Ox 94 O2 Delivery Room Air Capillary Refill : Less Than 3 Seconds I&O Intake and Output 08/29/19 00:00 Intake Total 1100 ml Output Total 680 ml Balance 420 ml Intake Oral 1100 ml Output Urine Total 680 ml # Urine Diapers 2 # Bowel Movements 1 General: Alert, Oriented X3 HEENT: Atraumatic, EOMI Neck: Supple, No JVD, No Thyromegaly Lungs: Clear to Auscultation, Normal Air Movement Heart: Regular Rate, Normal S1, Normal S2, No Murmurs Abdomen: Normal Bowel Sounds, Soft, No Tenderness, No Hepatosplenomegaly, No Masses Extremities: No Clubbing, No Tenderness/Swelling Skin: No Rashes, No Breakdown, No Significant Lesion Neuro: Normal Speech, Normal Tone, Sensation Intact Psych/Mental Status: Mental Status NL Results Lab Laboratory Tests 08/29/19 05:17 A/P-Cardiology Admission Diagnosis Spinal Stenosis Chest pain CAD HTN Assessment/Plan Spinal stenosis, slipped disc, status post L2-3 laminectomy done on June, back pain improving. Continue PT/OT Chest pain, history of chronic stable angina, no further episodes of chest pain reported. Continue to monitor Coronary artery disease, history of CABG, multiple intervention the past, recent cardiac catheterization with drug-eluting stent deployment to the vein graft to the diagonal artery, had a patent GRACE to LAD with patent stent beyond the anastomosis in the LAD, small vessel disease otherwise done by Dr. Perez in [facility], currently back on Plavix. Continue to monitor Hypotension, probably secondary to pain medication and muscle relaxant, unable to tolerate any antihypertensive medication at this time, continue to monitor. Sinus bradycardia, better at this time, off beta blockers. Hyperlipidemia, maintained on statin Generalized weakness, lower and upper extremity weakness, cervical spinal stenosis with slipped disc, s/p L 2-[address] Bhatt. Dementia Patient was seen and evaluated with Jill, examination performed, management plan was discussed, agree with the current scribed note, I made few changes to the note using Italic font Patient is feeling better, no chest pain or shortness of breath, back pain is better Blood pressure has been stable. Continue current medication continue to monitor Clinical Quality Measures DVT/VTE Risk/Contraindication: Risk Factor Score Per Nursin RFS Level Per Nursing on Admit: 4+=Very High JILL FULLER Aug 29, 2019 8:18 am CHRISTIANO CHANG MD Aug 29, 2019 9:45 am ISIDRA
[2019-08-29] MEDS: DULoxetine 30 MG (CYMBALTA) CAP PO SCH (08:19)
[2019-08-29] MEDS: TOLTERODINE LA 4 MG (DETROL) CAP PO SCH ×2 (08:19→20:30)
[2019-08-29] MEDS: ASPIRIN E.C. 81 MG (ECOTRIN) TAB PO SCH (08:20)
[2019-08-29] MEDS: CLOPIDOGREL 75 MG (PLAVIX) TABLET PO SCH (08:20)
[2019-08-29] MEDS: LORATADINE (CLARITIN) 10 MG TAB PO SCH (08:20)
[2019-08-29] MEDS: POLYETHYLENE GLYCOL 17 GM (MIRALAX) PACK PO SCH ×2 (08:29→20:32)
[2019-08-29] MEDS: BISACODYL 10 MG SUPP (DULCOLAX) PR SCH ×2 (08:29→20:33)
[2019-08-29] MEDS: SENNA W/DOCUSATE (SENOKOT S) TABLET PO SCH ×2 (08:29→20:33)
[2019-08-29] MEDS: DOCUSATE CALCIUM 240 MG (SURFAK) CAP PO SCH ×2 (08:30→20:30)
[2019-08-29] MEDS: BACITRACIN OINTMENT 28 GM TUBE TOP SCH ×2 (08:31→20:37)
--- NOTE | 2019-08-29 08:57 | PM&R Progress Note ---
Subjective HPI/CC On Admission Date Seen by Provider: Aug 29, 2019 Time Seen by Provider: 08:30 CC: Cervical spine injury non-traumatic HPI: This is a 78yoWM who presented to the Hospital with significant compromise in function, was found to have significant cervical spine stenosis causing generalized weakness globally, that was complicated with delirium post- operatively in addition to a UTI diagnosis. Pt previously doctored with Dr. Tyler Danielson and did not see a regular marketing program coordinator although he has had Bypass surgery and has known CAD. Pt was doing well but had a lengthy acute care course and is in need of significant rehabilitation, prior to returning home. He seems to be very depressed, very tearful when I meet him and reports that he is about to turn 79 next month. I have tried to reassure him and I have put in a behavioral health consult in for him because of obvious tearfulness and overwhelmed feeling and loss of independence that he will need to be aggressively treated for in order to return home safely. Previously he used a walker for the past 6 months prior to admission, had lumbar spine surgery then was discharged home and home PT Collette Ramos evaluated the Pt to have such severe weakness that he was total care so he was sent to the ER for workup and from there thing progressed into cervical spine MRI showing severe stenosis and Dr. Bhatt performed surgery with good results but was so severe it was a dural tear during the surgery and he has become quite debilitated. He is urinating well, hasn't had a BM in several days so will need to work on that when he is admitted into the inpatient rehab unit. Overall he will be aggressively treated in order to re-gain his independence in order to return home. Subjective/Events-last exam Pt doing really well today Labs are normal [facility] placement at [place] on Thursday Pain tolerable Delirium is resolved completely Check meds and labs Reviewed therapy notes Conferred with gate person of Systems Musculoskeletal: back pain Objective Exam Vital Signs Vital Signs Date Time Temp Pulse Resp B/P (MAP) Pulse Ox O2 Delivery O2 Flow Rate FiO2 08/29/19 17:37 Room Air 08/29/19 16:05 36.8 83 14 120/79 (93) 95 Capillary Refill : Less Than 3 Seconds General Appearance: No Apparent Distress, WD/WN, Chronically ill HEENT: PERRL/EOMI, Normal ENT Inspection, Pharynx Normal, Moist Mucous Membranes Neck: Full Range of Motion, Normal Inspection, Non Tender, Supple Respiratory: Chest Non Tender, Lungs Clear, Normal Breath Sounds, No Accessory Muscle Use, No Respiratory Distress Cardiovascular: Regular Rate, Rhythm, No Gallop, No Murmur Gastrointestinal: Normal Bowel Sounds, No Organomegaly, No Pulsatile Mass, Non Tender, Soft Back: Normal Inspection, No CVA Tenderness, Decreased Range of Motion (much improved today) Extremity: Normal Capillary Refill, Normal Inspection, Normal Range of Motion, Non Tender, No Calf Tenderness, No Pedal Edema Neurologic/Psychiatric: Alert, Oriented x3, Normal Mood/Affect, fund manager II-XII Norm as Tested, Motor Weakness Skin: Normal Color, Warm/Dry Lymphatic: No Adenopathy Results/Procedures Lab Laboratory Tests 08/29/19 05:17 Patient resulted labs reviewed. FIM Transfers Therapy Code Descriptions/Definitions Functional [place] Measure: 0=Not Assessed/NA 4=Minimal Assistance 1=Total Assistance 5=Supervision or Setup 2=Maximal Assistance 6=Modified [place] 3=Moderate Assistance 7=Complete IndependenceSCALE: Activities may be completed with or without assistive devices. 6-Kknrdyvsps-dcoftgr completes the activity by him/herself with no assistance from a helper. 5-Set-up or Clean-up Assistance-helper sets up or cleans up; patient completes activity. [place] assists only prior to or following the activity. 4-Supervision or Touching Assistance-helper provides verbal cues and/or touching/steadying and/or contact guard assistance as patient completes activ ity. Assistance may be provided throughout the activity or intermittently. 3-Partial/Moderate Assistance-helper does LESS THAN HALF the effort. Sun[place] lifts, holds or supports trunk or limbs, but provides less than half the effort. 2-Substantial/Maximal Assistance-helper does MORE THAN HALF the effort. Sun[place] lifts or holds trunk or limbs and provides more than half the effort. 4-Bqlxuldxb-xdcmgf does ALL the effort. Patient does none of the effort to complete the activity. Or, the assistance of 2 or more helpers is required for the patient to complete the activity. If activity was not attempted, code reason: 7-Patient Refused. 9-Not Applicable-not attempted and the patient did not perform the activity before the current illness, exacerbation or injury. 10-Not Attempted due to Environmental Limitations-(lack of equipment, weather restraints, etc.). 88-Not Attempted due to Medical Conditions or Safety Concerns. Transfers (B, C, W/C) (FIM): 3 Roll Left to Right (QC): 6 Sit to Lying (QC): 4 (SBA) Sit to Stand (QC): 3 (Olu for all stands this date.) Chair/Szj-nt-Kbywu Xfer(QC): 3 (Olu-CGA stand pivot with FWW) Bed to/from Chair: 5 Car Transfer (QC): 3 (Olu with slide board) Gait Training Does the Patient Walk?: Yes Gait (FIM): 5 Distance: 100', 60' Walk 10 feet (QC): 4 (CGA) Walk 50 ft with 2 Turns(QC): 4 (CGA) Walk 150 ft (QC): 4 (SBA) Walking 10ft/uneven surface-QC: 88 Gait Persons Needed: 1 Gait Assistive Device: FWW Wheelchair Training Does the Pt Use a Wheelchair?: Yes Wheelchair (FIM): 1 Wheelchair Distance: 3=150 ft Distance: 50' x2 Wheel 50 ft with 2 turns (QC): 6 Wheel 150 ft (QC): 6 Type of Wheelchair: Manual Stair Training 1 Step (curb) (QC): 88 4 Steps (QC): 88 12 Steps (QC): 88 Balance Picking up an Object (QC): 88 ADL-Treatment Eating (QC): 6 (Pt reported he was able to open all containers and eat breakfast without assistance prior to start of OT session.) Groomin (Pt brushed hair at bed level, he was able to gather hair brush from side table and complete task without assistance.) Oral Hygiene (QC): 6 Bathing Location: L Arm, R Arm, L Upper Leg, R Upper Leg, L Lower Leg (including foot), R Lower Leg (including foot), Chest, Abdomen, Perineal Area Shower/Bathe Self (QC): 3 (Pt required assistance with buttocks for thoroughness. Pt completed task seated on shower bench.) Upper Body Dressing (QC): 5 (Pt required set up of shirt, able to don/doff seated on shower bench.) Lower Body Dressing (QC): 3 (Pt able to manage pants/underwear down and doff all parts. Pt required assistance managing pants/underwear up over hips post shower secondary to fatigue.) On/Off Footwear (QC): 2 (OT educated pt on using sock aid to don socks. OT assisted pt with doffing socks, & demo'd use of sock aid. Pt able to don sock on left foot using sock aid, required assistance with right foot secondary to dressing on heel of foot) Toileting Hygiene (QC): 2 (Pt able to manage pants/underwear down, required assistance with hygiene and managing clothing back up.) Toilet Transfer (QC): 3 (CGA for stand to sit, Min A sit to stand from [facility] over toilet. ) Assessment/Plan Assessment and Plan Assess & Plan/Chief Complaint Assessment: Spinal cord trauma from severe stenosis Debility CAD Delirium now resolved s/p UTI completed treatment recurrent type Constipation related to surgery HTN HLP Cognitive deficit SLUMS Depression w/tearfulness Bladder incontinence improved on Dr Arana recs Bowel incontinence improved now Delirium now resolved Plan: Monitor bowel and bladder incontinence IRF protocol Increase strength with IRF protocols BM regimen to hold due to loose stools Started antidepressant Monitor BP and holding most BP meds Dr Arana consultation is appreciated May be able to go home after DC after skilled care at discharge from inpatient rehabilitation since he needs 24/ care Increase oral fluids Wound care management DC NHP Thursday (1) Spinal cord injury (2) Generalized Weakness (3) Cervical spinal stenosis Status: Acute (4) Neuroforaminal stenosis of spine Status: Acute (5) Essential (primary) hypertension Status: Chronic (6) Lumbar spinal stenosis Status: Acute (7) Slipped intervertebral disc Status: Acute (8) Delirium Status: Acute (9) Incidental durotomy Status: Acute (10) CAD (coronary artery disease) Status: Chronic YANETH REEDER DO Aug 29, 2019 08:57 POS
--- NOTE | 2019-08-29 09:10 | Occupational Ther Daily Note ---
OT Current Status-Daily Note Subjective Pt laying in bed at start of session, agreeable to OT tx with focus on ADLs this AM. Pt did not report any pain during tx. ADL-Treatment Therapy Code Descriptions/Definitions Functional [place] Measure: 0=Not Assessed/NA 4=Minimal Assistance 1=Total Assistance 5=Supervision or Setup 2=Maximal Assistance 6=Modified [place] 3=Moderate Assistance 7=Complete IndependenceSCALE: Activities may be completed with or without assistive devices. 9-Zbodxqvkqj-gkkcxhx completes the activity by him/herself with no assistance from a helper. 5-Set-up or Clean-up Assistance-helper sets up or cleans up; patient completes activity. Gentry assists only prior to or following the activity. 4-Supervision or Touching Assistance-helper provides verbal cues and/or touching/steadying and/or contact guard assistance as patient completes ac tivity. Assistance may be provided throughout the activity or intermittently. 3-Partial/Moderate Assistance-helper does LESS THAN HALF the effort. Gentry lifts, holds or supports trunk or limbs, but provides less than half the effort. 2-Substantial/Maximal Assistance-helper does MORE THAN HALF the effort. Gentry lifts or holds trunk or limbs and provides more than half the effort. 6-Ftbchtpnn-vgbuci does ALL the effort. Patient does none of the effort to complete the activity. Or, the assistance of 2 or more helpers is required for the patient to complete the activity. If activity was not attempted, code reason: 7-Patient Refused. 9-Not Applicable-not attempted and the patient did not perform the activity before the current illness, exacerbation or injury. 10-Not Attempted due to Environmental Limitations-(lack of equipment, weather restraints, etc.). 88-Not Attempted due to Medical Conditions or Safety Concerns. Oral Hygiene (QC): 6 Bathing Location: L Arm, R Arm, L Upper Leg, R Upper Leg, L Lower Leg (including foot), R Lower Leg (including foot), Chest, Abdomen, Buttocks, Per ineal Area Shower/Bathe Self (QC): 4 (Pt able to wash all parts, including buttocks using lateral leans. ) Upper Body Dressing (QC): 5 Lower Body Dressing (QC): 3 (Pt able to doff all parts underwear/pants, and able to thread LE clothing. During stand at W for management up/down over hips, pt required CGA-Min A for standing balance. Pt able to mangage pants up over hips, requiring assistance for minor adjustment once up.) Other Treatment Pt transferred supine to sit EOB with SBA. Pt then required Min A sit to stand, and he performed functional mobility using FWW to shower chair with CGA. Pt then completed showering/bathing at shower chair. Blood noticed at the bottom of shower, pt indicated he was scratching his scrotum. Nursing notified. Pt then transferred to w/c to complete grooming at sink. Post self-propelled w/c and put in his hearing aides. Post OT session, pt upright in w/c, call light and tray table in reach and all needs met. Education OT Patient Education: Correct positioning, Energy conservation, Modified ADL techniques, Progress toward Goal/Update tx plan, Purpose of tx/functional activities, Transfer techniques Teaching Recipient: Patient Teaching Methods: Demonstration, Discussion Response to Teaching: Verbalize Understanding OT Short Term Goals Short Term Goals Upper Body Dressing(FIM): 4 Lower Body Dressing(FIM): 4 Toilet/Commode Transfer(FIM): 4 Additional Short Term Goals: 1-Demonstrate ADL Tasks, 2-Verbalize Understanding, 3-ImproveStrength/Jesus Alberto 1=Demonstrate adherence to instructed precautions during ADL tasks. 2=Patient will verbalize/demonstrate understanding of assistive devices/modifications for ADL. 3=Patient will improve strength/tolerance for activity to enable patient to perform ADL's. OT C4 Planner Goals Fpc Goals Time Frame: Sep 13, 2019 Eating (QC): 6 (met) Oral Hygiene (QC): 6 (met) Shower/Bathe Self (QC): 6 (not met) Upper Body Dressing (QC): 6 (not met) Lower Body Dressing (QC): 5 (not met) On/Off Footwear (QC): 6 (met) Toileting Hygiene (QC): 5 (not met) Toilet/Commode Transfer (QC): 5 (not met) Additional Goals: 1-Demonstrate ADL Tasks, 2-Verbalize Understanding, 3- ImproveStrength/Jesus Alberto 1=Demonstrate adherence to instructed precautions during ADL tasks. 2=Patient will verbalize/demonstrate understanding of assistive devices/modifications for ADL. 3=Patient will improve strength/tolerance for activity to enable patient to perform ADL's. OT Education/Plan Problem List/Assessment Assessment: Decreased Activ Tolerance, Decreased UE Strength, Impaired Self- Care Skills Discharge Recommendations Plan/Recommendations: Continue POC Treatment Plan/Plan of Care Treatment,Training & Education: Yes Patient would benefit from OT for education, treatment and training to promote independence in ADL's, mobility, safety and/or upper extremity function for ADL's. Plan of Care: ADL Retraining, Caregiver Training, Concurrent Therapy, Functional Mobility, Group Exercise/Act as Ind, UE Funct Exercise/Act, W/C Management Training Treatment Duration: Jul 27, 2019 Frequency: At least 5 of 7 days/Wk (IRF) Estimated Hrs Per Day: 1.5 hours per day Agreement: Yes Rehab Potential: Good Time/GCodes Start Time: 08:55 Stop Time: 09:55 Total Time Billed (hr/min): 60 Billed Treatment Time 1, ADL 4 RACHID GONZALES OT Aug 29, 2019 09:10 POS
--- NOTE | 2019-08-29 11:16 | Speech Therapy Daily Note ---
Speech Daily Progress Note Subjective Date Seen by Provider: Aug 29, 2019 Time Seen by Provider: 00:30 Patient was resting in his chair after OT. He stated he had a shower and a shave today. Objective Patient completed safety awareness q/a in relation to his daily needs (as he will need upon discharge this week) at 90% with 10% cues. Assessment Assessment Current Status: Good Progress Treatment Plan Continue Plan of Care Speech Short Term Goals Short Term Goals Short Term Goals 1) Patient will complete memory tasks related to his daily needs at 90% or greater, independently. 2) Patient will complete problem solving tasks related to his daily needs at 90% or greater, independently. 3) Patient will complete safety awareness tasks related to his daily needs at 90% or greater, independently. Speech Artist Model Goals Artist Model Goals Patient will improve cognitive-communication necessary for safety and daily living tasks with minimal assist. Speech-Plan Patient/Family Goals Patient/Family Goals: Patient states he will be going to the SNF on Thursday until he is able to return to his alf apartment. Treatment Plan Speech Therapy Treatment Plan: Continue Plan of Care Treatment Duration: Aug 31, 2019 Frequency: 5 times per week Estimated Hrs Per Day: .5 hour per day Rehab Potential: Good Barriers to Learning: Patient has cognitive deficits, however these have mostly resolved as a result of skilled therapy. Pt/Family Agrees to Plan: Yes Safety Risks/Education Teaching Recipient: Patient Teaching Methods: Demonstration, Discussion Response to Teaching: Verbalize Understanding, Return Demonstration Education Topics Provided: Continued safety upon discharge. Time Speech Therapy Time In: 10:15 Speech Therapy Time Out: 10:45 Total Billed Time: 30 Billed Treatment Time 1L[address]ETH[address] ST Aug 29, 2019 11:16 POS
--- NOTE | 2019-08-29 11:27 | Physical Therapy Daily Note ---
PT Daily Note-Current Subjective Pt in WC pre-tx with FORESTRY AID in the room. Pt agrees to PT this morning. Pt reports he is feeling alright today pain is 5/10 in low back. Appearance pt in bed post-tx. pt with call light, room phone, and tray table in reach with all needs met at this time. Mental Status Patient Orientation: Person, Place, Time, Situation Transfers SCALE: Activities may be completed with or without assistive devices. 1-Hgcfwfzjnd-yftqabu completes the activity by him/herself with no assistance from a helper. 5-Set-up or Clean-up Assistance-helper sets up or cleans up; patient completes activity. [place] assists only prior to or following the activity. 4-Supervision or Touching Assistance-helper provides verbal cues and/or touching/steadying and/or contact guard assistance as patient completes activity. Assistance may be provided throughout the activity or intermittently. 3-Partial/Moderate Assistance-helper does LESS THAN HALF the effort. [place] lifts, holds or supports trunk or limbs, but provides less than half the effort. 2-Substantial/Maximal Assistance-helper does MORE THAN HALF the effort. [place] lifts or holds trunk or limbs and provides more than half the effort. 6-Jbjujoiej-xvnqaw does ALL the effort. Patient does none of the effort to complete the activity. Or, the assistance of 2 or more helpers is required for the patient to complete the activity. If activity was not attempted, code reason: 7-Patient Refused. 9-Not Applicable-not attempted and the patient did not perform the activity before the current illness, exacerbation or injury. 10-Not Attempted due to Environmental Limitations-(lack of equipment, weather restraints, etc.). 88-Not Attempted due to Medical Conditions or Safety Concerns. Roll Left to Right (QC): 6 Sit to Lying (QC): 3 (Olu for R LE into bed.) Sit to Stand (QC): 4 (SBA) Chair/Eqv-ys-Amhya Xfer(QC): 4 Weight Bearing Right Lower Extremity: Right Weight Bearing/Tolerated Left Lower Extremity: Left Weight Bearing/Tolerated Gait Training Distance: 100'x2 Walk 10 feet (QC): 4 (CGA) Walk 50 ft with 2 Turns(QC): 4 (CGA) Gait Assistive Device: FWW Pt improving to more normal step through gait pattern with increasing velocity and step length. Wheelchair Training Does the Pt Use a Wheelchair?: No Balance Special Test Comments pt performed standing balance training kicking ball back and forth to tech 5kicks each leg 2 times. Exercises Seated Therapy Exercises: Long arc quads, Hip flexion Seated Reps: 20 Standing: Hip Abduction, Heel/toe raises Standing Reps: 20 NuStep Minutes: 15 NuStep Workload: 5 Treatments pt performed functional LE strengthening/endurance training, transfer training, bed mobility training, skilled ambulation training, balance training, and education this date. Assessment Current Status: Fair Progress Pt requires no standing rest breaks this date during ambulation. Pt augustin increased time standing on his LE's. Pt had 1 knee buckle on his R Knee during balance training in the // bars where the pt was only standing on his R LE at the time. pt came down to sitting on this PT's knee while still holding on to // bars. Pt was able to rest for a few seconds and then perform a sit to stand and finished the balance exercises. Pt reports it scared him but nothing hurt. Pt reports at end of session his R hip is hurting for the quick descent but he is okay. PT Short Term Goals Short Term Goals Time Frame: Aug 02, 2019 Wheelchair Distance: 50' x2 PT Assisted Goals Assisted Goals PT Brushing Operator Goals Time Frame: Aug 16, 2019 Sit to Lying (QC): 3 (Olu) Lying-Sitting on Side/Bed(QC): 3 (Kofi) Sit to Stand (QC): 1 Roll Left to Right (QC): 3 (Olu) Chair/Ase-gr-Bofor Xfer(QC): 3 (Olu) Car Transfer (QC): 1 Walk 10 feet (QC): 88 Walk 10ft-Uneven Surface(QC): 88 Walk 50ft with 2 Turns (QC): 88 Walk 150 ft (QC): 88 Wheel 50 feet with 2 turns (QC: 5 1 Step (curb) (QC): 88 4 Steps (QC): 88 12 Steps (QC): 88 Picking up an Object (QC): 88 PT Plan Problem List Problem List: Activity Tolerance, Functional Strength, Safety, Balance, Gait, Transfer, Bed Mobility, ROM Treatment/Plan Treatment Plan: Continue Plan of Care Treatment Plan: Bed Mobility, Education, Functional Activity Jesus Alberto, Functional Strength, Group Therapy, Gait, Safety, Therapeutic Exercise, Transfers Treatment Duration: Aug 16, 2019 Frequency: At least 5 of 7 days/Wk (IRF) Estimated Hrs Per Day: 1.5 hours per day Patient and/or Family Agrees t: Yes Safety Risks/Education Patient Education: Gait Training, Transfer Techniques, Correct Positioning, Safety Issues Teaching Recipient: Patient Teaching Methods: Demonstration, Discussion Response to Teaching: Return Demonstration, Reinforcement Needed Time/GCodes Time In: 1045 Time Out: 1130 Total Billed Treatment Time: 45 Total Billed Treatment 1 visit FA 30' GT 15' ALANA CISNEROS PT Aug 29, 2019 11:27 POS
--- NOTE | 2019-08-29 14:28 | Therapy Group Daily Note ---
Therapy Daily Group Note Patient Education Topic Other List Below (TRFs, the brain and pain) Exercises LE Seated Exercise Session Ratio (pt:therapist): 4:1 Goal of Session: Safety with Transfers, Other (list) (understanding pain and the brain) Goal Met for this Session: Yes Pt Benefit of Group: F/U Use of Strategies @Home, Increased Functional Safety, Socialization Other/Notes Pt. participated in group PT OT session this date. Pt. came and went via ambulation with CGA . Pt. was pleasant and social, sharing his name and his favorite place he has traveled. Education focused on bed mobility , sup to side to sit TRFs, sit to stand TRFs, car TRFs and tub bench TRFs all demonstrated with equipment and explanation. Pts. participated, shared their experiences and asked pertinent questions. Pts participated in group exercises sharing the se ated exercises they could recall and demonstrating them for others . Sit to stand was broken down and practiced by each participant. Pain management strategies were discussed as well as information derived from "explain pain" topics. Pt. to room after group, in bed with servin at hand, needs met Start Time: 13:00 Stop Time: 14:15 Total Billed Treatment Time: 75 Total Billed Treatment 1,GRP DEA PEÑALOZA TECHNICAL ASSISTANCE CONSULTANT Aug 29, 2019 14:28 POS
--- NOTE | 2019-08-29 15:46 | NUR ---
Met with patient and daughter, Christa to discuss upcoming discharge. Patient states he continues to be agreeable to dismissal to [facility]. Worker to check with in regards to transportation, day of dc. Also, patient questions if he will be in a private versus shared room. Message left with facility in regards to transportation and room. Patient questions what VA benefits/resources are available to him. Worker recommends patient visit with his [facility] assigned SW, at his next follow-up appointment. Will continue to follow for discharge planning.
[2019-08-29 16:05] VITALS: BP 120/79
--- NOTE | 2019-08-29 19:05 | NUR ---
bedside report received from PRESLEY KERR, assume care of pt
[2019-08-29] MEDS: TERAZOSIN 5 MG (HYTRIN) CAPSULE PO SCH (20:30)
[2019-08-29] MEDS: DONEPEZIL 10 MG (ARICEPT) TAB PO SCH (20:30)
[2019-08-29] MEDS: risperiDONE 0.25 MG (RisperDAL) TAB PO SCH (20:30)
[2019-08-29] MEDS: MELATONIN 3 MG TABLET PO PRN (20:30)
--- NOTE | 2019-08-29 20:32 | NUR ---
pt refused Senokot, miralax & Dulcolax suppository
--- NOTE | 2019-08-29 20:33 | NUR ---
pt c/o back pain level 6/10 on numeric scale, Lortab 5/325 1 tab po given
--- NOTE | 2019-08-29 21:45 | NUR ---
resting quietly in bed, pain level 0/10 on numeric scale
[2019-08-30 06:00] VITALS: BP 111/72
[2019-08-30] MEDS: PANTOPRAZOLE 40 MG (PROTONIX) TAB PO SCH (06:30)
[2019-08-30] MEDS: LACTOBACILLUS ACIDOPHILUS (PROBIOTIC) CAPSULE PO SCH ×3 (06:30→16:29)
--- NOTE | 2019-08-30 07:05 | NUR ---
BEDSIDE REPORT GIVEN TO MAREN KERR
--- NOTE | 2019-08-30 08:35 | Cardiology Progress Note ---
Subjective Date Seen by Provider: Aug 30, 2019 Time Seen by Provider: 08:34 Subjective/Events-last exam Patient is sitting in a chair, feeling well, no chest pain Review of Systems General: No Chills, No Night Sweats, No Fatigue, No Malaise, No Appetite, No Other HEENT: No Head Aches, No Visual Changes, No Eye Pain, No Ear Pain, No Dysphasia, No Sinus Congestion, No Post Nasal Drip, No Sore Throat, No Other Pulmonary: No Dyspnea, No Cough, No Pleuritic Chest Pain, No Other Cardiovascular: No: Chest Pain, Palpitations, Orthopnea, Paroxysmal Noc. Dyspnea, Edema, Lt Headedness, Other Objective-Cardiology Exam Last Set of Vital Signs Vital Signs 08/30/19 08/30/19 06:00 07:48 Temp 36.2 Pulse 72 Resp 16 B/P (MAP) 111/72 (85) Pulse Ox 96 O2 Delivery Room Air Capillary Refill : Less Than 3 Seconds I&O Intake and Output 08/30/19 00:00 Intake Total 1200 ml Output Total 625 ml Balance 575 ml Intake Oral 1200 ml Output Urine Total 625 ml # Urine Diapers 3 General: Alert, Oriented X3 HEENT: Atraumatic, EOMI Neck: Supple, No JVD, No Thyromegaly Lungs: Clear to Auscultation, Normal Air Movement Heart: Regular Rate, Normal S1, Normal S2, No Murmurs Abdomen: Normal Bowel Sounds, Soft, No Tenderness, No Hepatosplenomegaly, No Masses Extremities: No Clubbing, No Tenderness/Swelling Skin: No Rashes, No Breakdown, No Significant Lesion Neuro: Normal Speech, Normal Tone, Sensation Intact Psych/Mental Status: Mental Status NL A/P-Cardiology Admission Diagnosis Spinal Stenosis Chest pain CAD HTN Assessment/Plan Spinal stenosis, slipped disc, status post L2-3 laminectomy done on July 20, 2019, back pain improving. Continue PT/OT Chest pain, history of chronic stable angina, no further episodes of chest pain reported. Continue to monitor Coronary artery disease, history of CABG, multiple intervention the past, recent cardiac catheterization with drug-eluting stent deployment to the vein graft to the diagonal artery, had a patent GRACE to LAD with patent stent beyond the anastomosis in the LAD, small vessel disease otherwise done by Dr. Perez in [facility], currently back on Plavix. Continue to monitor Hypotension, probably secondary to pain medication and muscle relaxant, unable to tolerate any antihypertensive medication at this time, continue to monitor. Sinus bradycardia, better at this time, off beta blockers. Hyperlipidemia, maintained on statin Generalized weakness, lower and upper extremity weakness, cervical spinal stenosis with slipped disc, s/p L 2-[address] Bhatt. Dementia Clinical Quality Measures DVT/VTE Risk/Contraindication: Risk Factor Score Per Nursin RFS Level Per Nursing on Admit: 4+=Very High CHRISTIANO DAVIS MD Aug 30, 2019 8:35 am POS
[2019-08-30] MEDS: LORATADINE (CLARITIN) 10 MG TAB PO SCH (08:53)
[2019-08-30] MEDS: SENNA W/DOCUSATE (SENOKOT S) TABLET PO SCH ×2 (08:53→20:02)
[2019-08-30] MEDS: TOLTERODINE LA 4 MG (DETROL) CAP PO SCH ×2 (08:53→20:15)
[2019-08-30] MEDS: DULoxetine 30 MG (CYMBALTA) CAP PO SCH (08:53)
[2019-08-30] MEDS: CLOPIDOGREL 75 MG (PLAVIX) TABLET PO SCH (08:53)
[2019-08-30] MEDS: ASPIRIN E.C. 81 MG (ECOTRIN) TAB PO SCH (08:53)
[2019-08-30] MEDS: POLYETHYLENE GLYCOL 17 GM (MIRALAX) PACK PO SCH ×2 (08:53→20:01)
[2019-08-30] MEDS: BISACODYL 10 MG SUPP (DULCOLAX) PR SCH ×2 (08:54→20:02)
[2019-08-30] MEDS: DOCUSATE CALCIUM 240 MG (SURFAK) CAP PO SCH ×2 (08:54→20:02)
[2019-08-30] MEDS: BACITRACIN OINTMENT 28 GM TUBE TOP SCH ×2 (09:00→21:00)
--- NOTE | 2019-08-30 09:55 | Occupational Ther Daily Note ---
OT Current Status-Daily Note Subjective Pt laying in bed at start of session, agreeable to OT tx with focus on ADLs. Pt did not verbalize any pain during session. Mental Status/Objective Patient Orientation: Person, Place, Time, Situation ADL-Treatment Therapy Code Descriptions/Definitions Functional [place] Measure: 0=Not Assessed/NA 4=Minimal Assistance 1=Total Assistance 5=Supervision or Setup 2=Maximal Assistance 6=Modified [place] 3=Moderate Assistance 7=Complete IndependenceSCALE: Activities may be completed with or without assistive devices. 1-Fwpqeeyjjz-dwimrrr completes the activity by him/herself with no assistance from a helper. 5-Set-up or Clean-up Assistance-helper sets up or cleans up; patient completes activity. [place] assists only prior to or following the activity. 4-Supervision or Touching Assistance-helper provides verbal cues and/or touching/steadying and/or contact guard assistance as patient completes activity. Assistance may be provided throughout the activity or intermittently. 3-Partial/Moderate Assistance-helper does LESS THAN HALF the effort. [place] lifts, holds or supports trunk or limbs, but provides less than half the effort. 2-Substantial/Maximal Assistance-helper does MORE THAN HALF the effort. [place] lifts or holds trunk or limbs and provides more than half the effort. 0-Kzumsujyl-xiwesw does ALL the effort. Patient does none of the effort to complete the activity. Or, the assistance of 2 or more helpers is required for the patient to complete the activity. If activity was not attempted, code reason: 7-Patient Refused. 9-Not Applicable-not attempted and the patient did not perform the activity before the current illness, exacerbation or injury. 10-Not Attempted due to Environmental Limitations-(lack of equipment, weather restraints, etc.). 88-Not Attempted due to Medical Conditions or Safety Concerns. Eating (QC): 6 (Per pt report: Pt was able to open all containers at breakfast without assistance, and he did not have any problems getting the food to his mouth and eating it.) Oral Hygiene (QC): 6 (Pt able to complete oral hygiene, seated in w/c at sink.) Bathing Location: L Arm, R Arm, L Upper Leg, R Upper Leg, L Lower Leg (including foot), R Lower Leg (including foot), Chest, Abdomen, Buttocks, Perineal Area Shower/Bathe Self (QC): 5 (Pt able to complete all parts of showering after set up of the shower area. Pt able to wash buttocks utilizing side leans. ) Upper Body Dressing (QC): 5 (set up only.) Lower Body Dressing (QC): 3 (Pt required min A during sit to stand for clothing management, CGA for balance during stand. Pt was able to thread BLE into pants/underwear, and he was able to manage pants up over hips with assistance for balance.) Toileting Hygiene (QC): 7 (Pt refused to complete toileting at this time secondary to already completing it earlier today. Based on pt's report, pt QC would be a 2. Pt stated earlier this morning he was able to manage pants down but required assistance with hygiene and managing clothing up.) Toilet Transfer (QC): 4 (CGA during transfer. pt able to manuver w/c to grab bars, pull up on grab bars to stand and pivot over to [facility] over the toilet. Pt able to transfer back to w/c utilizing grab bars with CGA.) Other Treatment Pt laying in bed, transferred supine to sit then performed functional mobility using FWW with CGA into the bathroom. Pt completed showering and dressing, then transferred to w/c to complete oral hygiene, hair brushing, and shaving at sink. Pt then self propelled w/c to therapy area, completing [id number] on arm bike, min resistance to increase activity tolerance, then self propelled w/c back to room. Post OT session, pt seated upright in w/c, call light in reach and all needs met. FOOTWEAR QC: 6 (Pt able to don/doff BLE socks and shoes without assistance from OT). Education OT Patient Education: Correct positioning, Energy conservation, Modified ADL techniques, Progress toward Goal/Update tx plan, Purpose of tx/functional activities, Transfer techniques Teaching Recipient: Patient Teaching Methods: Demonstration Response to Teaching: Verbalize Understanding OT Short Term Goals Short Term Goals Upper Body Dressing(FIM): 4 Lower Body Dressing(FIM): 4 Toilet/Commode Transfer(FIM): 4 Additional Short Term Goals: 1-Demonstrate ADL Tasks, 2-Verbalize Understanding, 3-ImproveStrength/Jesus Alberto 1=Demonstrate adherence to instructed precautions during ADL tasks. 2=Patient will verbalize/demonstrate understanding of assistive devices/modifications for ADL. 3=Patient will improve strength/tolerance for activity to enable patient to perform ADL's. OT Custodial Goals Custodial Goals Time Frame: Sep 13, 2019 Eating (QC): 6 (met) Oral Hygiene (QC): 6 (met) Shower/Bathe Self (QC): 6 (not met) Upper Body Dressing (QC): 6 (not met) Lower Body Dressing (QC): 5 (not met) On/Off Footwear (QC): 6 (met) Toileting Hygiene (QC): 5 (not met) Toilet/Commode Transfer (QC): 5 (not met) Additional Goals: 1-Demonstrate ADL Tasks, 2-Verbalize Understanding, 3- ImproveStrength/Jesus Alberto 1=Demonstrate adherence to instructed precautions during ADL tasks. 2=Patient will verbalize/demonstrate understanding of assistive de vices/modifications for ADL. 3=Patient will improve strength/tolerance for activity to enable patient to perform ADL's. OT Education/Plan Problem List/Assessment Assessment: Decreased Activ Tolerance, Decreased UE Strength, Impaired Funct Balance, Impaired I ADL's, Impaired Self-Care Skills Discharge Recommendations Plan/Recommendations: Continue POC Treatment Plan/Plan of Care Treatment,Training & Education: Yes Patient would benefit from OT for education, treatment and training to promote independence in ADL's, mobility, safety and/or upper extremity function for ADL's. Plan of Care: ADL Retraining, Caregiver Training, Concurrent Therapy, Functional Mobility, Group Exercise/Act as Ind, UE Funct Exercise/Act, W/C Management Training Treatment Duration: Jul 27, 2019 Frequency: At least 5 of 7 days/Wk (IRF) Estimated Hrs Per Day: 1.5 hours per day Agreement: Yes Rehab Potential: Good Time/GCodes Start Time: 09:35 Stop Time: 10:50 Total Time Billed (hr/min): 75 Billed Treatment Time 1, ADL 4 (60mins), EX (15mins) RACHID OGLESBY OT Aug 30, 2019 09:55 POS
--- NOTE | 2019-08-30 11:51 | Physical Therapy Daily Note ---
PT Daily Note-Current Subjective pt in WC pre-tx. pt agrees to PT this morning. pt reports decreased pain down to 4/10 in his low back. Appearance pt in WC post-tx. pt with call light, room phone, and tray table in reach with all needs met at this time. Mental Status Patient Orientation: Person, Place, Time, Situation Transfers SCALE: Activities may be completed with or without assistive devices. 9-Zndrvwbajc-bkyayol completes the activity by him/herself with no assistance from a helper. 5-Set-up or Clean-up Assistance-helper sets up or cleans up; patient completes activity. [place] assists only prior to or following the activity. 4-Supervision or Touching Assistance-helper provides verbal cues and/or touching/steadying and/or contact guard assistance as patient completes activity. Assistance may be provided throughout the activity or intermittently. 3-Partial/Moderate Assistance-helper does LESS THAN HALF the effort. [place] lifts, holds or supports trunk or limbs, but provides less than half the effort. 2-Substantial/Maximal Assistance-helper does MORE THAN HALF the effort. [place] lifts or holds trunk or limbs and provides more than half the effort. 6-Xvgaszgdg-mqkphf does ALL the effort. Patient does none of the effort to complete the activity. Or, the assistance of 2 or more helpers is required for the patient to complete the activity. If activity was not attempted, code reason: 7-Patient Refused. 9-Not Applicable-not attempted and the patient did not perform the activity before the current illness, exacerbation or injury. 10-Not Attempted due to Environmental Limitations-(lack of equipment, weather restraints, etc.). 88-Not Attempted due to Medical Conditions or Safety Concerns. Roll Left to Right (QC): 6 Sit to Lying (QC): 6 Sit to Stand (QC): 5 Chair/Xid-yz-Vuerq Xfer(QC): 5 Car Transfer (QC): 5 Weight Bearing Right Lower Extremity: Right Weight Bearing/Tolerated Left Lower Extremity: Left Weight Bearing/Tolerated Gait Training Distance: 150', 100' Walk 10 feet (QC): 4 (SBA) Walk 50 ft with 2 Turns(QC): 4 (SBA) Walk 150 ft (QC): 4 (SBA) Walking 10ft/uneven surface-QC: 4 (CGA) Gait Assistive Device: FWW pt ambulates with a normal step through pattern. Wheelchair Training Does the Pt Use a Wheelchair?: No Stair Training 1 Step (curb) (QC): 4 (CGA) 4 Steps (QC): 88 12 Steps (QC): 88 Stairs: Pattern: Step to Balance Picking up an Object (QC): 4 (CGA) Exercises Supine Ex: Quad Set, Glut sets, Heel Slides, Short Arc Quads, Straight leg raise Supine Reps: 20 (2sets 10 reps) Standing: Heel/toe raises, Side steps (DB // Bars x2) Standing Reps: 20 (2sets 10 reps) NuStep Minutes: 15 NuStep Workload: 5 Treatments pt performed functional LE strengthening/endurance training, transfer training, skilled ambulation training, bed mobility, step training, and education this date. Assessment Current Status: Good Progress, Fair Progress Pt is able to transfer and ambulate with only CGA/SBA secondary to risk of his R LE buckling. Pt continues to test his own balance by letting go of FWW to adjust his pants with no apparent LOB. Pt continues to increase LE endurance and augustin increased time standing. Pt continues to be a mod fall risk secondary to the buckling R knee, however, pt has much improved on his safety recognition and proper positioning for transfers and ambulation. PT Short Term Goals Short Term Goals Time Frame: Aug 02, 2019 Wheelchair Distance: 50' x2 PT Jail Goals Jail Goals PT Jail Goals Time Frame: Aug 16, 2019 Sit to Lying (QC): 3 (Olu) Lying-Sitting on Side/Bed(QC): 3 (Kofi) Sit to Stand (QC): 1 Roll Left to Right (QC): 3 (Olu) Chair/Yjl-dt-Vzpyl Xfer(QC): 3 (Olu) Car Transfer (QC): 1 Walk 10 feet (QC): 88 Walk 10ft-Uneven Surface(QC): 88 Walk 50ft with 2 Turns (QC): 88 Walk 150 ft (QC): 88 Wheel 50 feet with 2 turns (QC: 5 1 Step (curb) (QC): 88 4 Steps (QC): 88 12 Steps (QC): 88 Picking up an Object (QC): 88 PT Plan Problem List Problem List: Activity Tolerance, Functional Strength, Safety, Balance, Gait, Transfer, Bed Mobility, ROM Treatment/Plan Treatment Plan: Continue Plan of Care Treatment Plan: Bed Mobility, Education, Functional Activity Jesus Alberto, Functional Strength, Group Therapy, Gait, Safety, Therapeutic Exercise, Transfers Treatment Duration: Aug 16, 2019 Frequency: At least 5 of 7 days/Wk (IRF) Estimated Hrs Per Day: 1.5 hours per day Patient and/or Family Agrees t: Yes Safety Risks/Education Patient Education: Gait Training, Transfer Techniques, Steps, Correct Positioning, Safety Issues Teaching Recipient: Patient Teaching Methods: Demonstration, Discussion Response to Teaching: Return Demonstration, Reinforcement Needed Time/GCodes Time In: 1100 Time Out: 1200 Total Billed Treatment Time: 60 Total Billed Treatment 1 visit EX 15' GT 15' FA 30' ALANA CISNEROS PT Aug 30, 2019 11:51 POS
--- NOTE | 2019-08-30 11:58 | PM&R Progress Note ---
Subjective HPI/CC On Admission Date Seen by Provider: Aug 30, 2019 Time Seen by Provider: 07:30 CC: Cervical spine injury non-traumatic HPI: This is a 78yoWM who presented to the Hospital with significant compromise in function, was found to have significant cervical spine stenosis causing generalized weakness globally, that was complicated with delirium post- operatively in addition to a UTI diagnosis. Pt previously doctored with Dr. Nickolas Danielson and did not see a regular snow maker although he has had Bypass surgery and has known CAD. Pt was doing well but had a lengthy acute care course and is in need of significant rehabilitation, prior to returning home. He seems to be very depressed, very tearful when I meet him and reports that he is about to turn 79 next month. I have tried to reassure him and I have put in a behavioral health consult in for him because of obvious tearfulness and overwhelmed feeling and loss of independence that he will need to be aggressively treated for in order to return home safely. Previously he used a walker for the past 6 months prior to admission, had lumbar spine surgery then was discharged home and home PT Collette Ramos evaluated the Pt to have such sev ere weakness that he was total care so he was sent to the ER for workup and from there thing progressed into cervical spine MRI showing severe stenosis and Dr. Bhatt performed surgery with good results but was so severe it was a dural tear during the surgery and he has become quite debilitated. He is urinating well, hasn't had a BM in several days so will need to work on that when he is admitted into the inpatient rehab unit. Overall he will be aggressively treated in order to re-gain his independence in order to return home. Subjective/Events-last exam Pt doing better. Discharge to the halfway tomorrow. Pain is improved. Incision is not draining anymore. Overall feels much better and ready to go to the halfway. Check meds and labs Reviewed therapy notes Conferred with gun repair clerk of Systems General: Fatigue Musculoskeletal: back pain Objective Exam Vital Signs Vital Signs Date Time Temp Pulse Resp B/P (MAP) Pulse Ox O2 Delivery O2 Flow Rate FiO2 08/30/19 19:09 Room Air 08/30/19 17:59 37.0 81 18 135/82 (99) 96 Capillary Refill : Less Than 3 Seconds General Appearance: No Apparent Distress, WD/WN, Chronically ill HEENT: PERRL/EOMI, Normal ENT Inspection, Pharynx Normal, Moist Mucous Me mbranes Neck: Full Range of Motion, Normal Inspection, Non Tender, Supple Respiratory: Chest Non Tender, Lungs Clear, Normal Breath Sounds, No Accessory Muscle Use, No Respiratory Distress Cardiovascular: Regular Rate, Rhythm, No Gallop, No Murmur Gastrointestinal: Normal Bowel Sounds, No Organomegaly, No Pulsatile Mass, Non Tender, Soft Back: Normal Inspection, No CVA Tenderness, Decreased Range of Motion (much improved today) Extremity: Normal Capillary Refill, Normal Inspection, Normal Range of Motion, Non Tender, No Calf Tenderness, No Pedal Edema Neurologic/Psychiatric: Alert, Oriented x3, Normal Mood/Affect, division field inspector II-XII Norm as Tested, Motor Weakness Skin: Normal Color, Warm/Dry Lymphatic: No Adenopathy Results/Procedures Lab Patient resulted labs reviewed. FIM Transfers Therapy Code Descriptions/Definitions Functional [place] Measure: 0=Not Assessed/NA 4=Minimal Assistance 1=Total Assistance 5=Supervision or Setup 2=Maximal Assistance 6=Modified [place] 3=Moderate Assistance 7=Complete IndependenceSCALE: Activities may be completed with or without assistive devices. 8-Sjrcsonoxt-azegrlz completes the activity by him/herself with no assistance fr om a helper. 5-Set-up or Clean-up Assistance-helper sets up or cleans up; patient completes activity. [place] assists only prior to or following the activity. 4-Supervision or Touching Assistance-helper provides verbal cues and/or touching/steadying and/or contact guard assistance as patient completes activity. Assistance may be provided throughout the activity or intermittently. 3-Partial/Moderate Assistance-helper does LESS THAN HALF the effort. [place] lifts, holds or supports trunk or limbs, but provides less than half the effort. 2-Substantial/Maximal Assistance-helper does MORE THAN HALF the effort. [place] lifts or holds trunk or limbs and provides more than half the effort. 5-Grtlkuilc-rxonwv does ALL the effort. Patient does none of the effort to complete the activity. Or, the assistance of 2 or more helpers is required for the patient to complete the activity. If activity was not attempted, code reason: 7-Patient Refused. 9-Not Applicable-not attempted and the patient did not perform the activity before the current illness, exacerbation or injury. 10-Not Attempted due to Environmental Limitations-(lack of equipment, weather restraints, etc.). 88-Not Attempted due to Medical Conditions or Safety Concerns. Transfers (B, C, W/C) (FIM): 3 Roll Left to Right (QC): 6 Sit to Lying (QC): 6 Sit to Stand (QC): 5 Chair/Eao-ga-Bayhg Xfer(QC): 5 Bed to/from Chair: 5 Car Transfer (QC): 5 Gait Training Does the Patient Walk?: Yes Gait (FIM): 5 Distance: 150' Walk 10 feet (QC): 4 (SBA) Walk 50 ft with 2 Turns(QC): 4 (SBA) Walk 150 ft (QC): 4 (SBA) Walking 10ft/uneven surface-QC: 4 (CGA) Gait Persons Needed: 1 Gait Assistive Device: FWW Wheelchair Training Does the Pt Use a Wheelchair?: No Wheelchair (FIM): 1 Wheelchair Distance: 3=150 ft Distance: 50' x2 Wheel 50 ft with 2 turns (QC): 6 Wheel 150 ft (QC): 6 Type of Wheelchair: Manual Stair Training 1 Step (curb) (QC): 4 (CGA) 4 Steps (QC): 88 12 Steps (QC): 88 Stairs: Pattern: Step to Balance Picking up an Object (QC): 4 (CGA) ADL-Treatment Eating (QC): 6 (Per pt report: Pt was able to open all containers at breakfast without assistance, and he did not have any problems getting the food to his mouth and eating it.) Groomin (Pt brushed hair at bed level, he was able to gather hair brush from side table and complete task without assistance.) Oral Hygiene (QC): 6 (Pt able to complete oral hygiene, seated in w/c at sink.) Bathing Location: L Arm, R Arm, L Upper Leg, R Upper Leg, L Lower Leg (including foot), R Lower Leg (including foot), Chest, Abdomen, Buttocks, Perineal Area Shower/Bathe Self (QC): 5 (Pt able to complete all parts of showering after set up of the shower area. Pt able to wash buttocks utilizing side leans. ) Upper Body Dressing (QC): 5 (set up only.) Lower Body Dressing (QC): 3 (Pt required min A during sit to stand for clothing management, CGA for balance during stand. Pt was able to thread BLE into pants/underwear, and he was able to manage pants up over hips with assistance for balance.) On/Off Footwear (QC): 2 (OT educated pt on using sock aid to don socks. OT assisted pt with doffing socks, & demo'd use of sock aid. Pt able to don sock on left foot using sock aid, required assistance with right foot secondary to dressing on heel of foot) Toileting Hygiene (QC): 7 (Pt refused to complete toileting at this time secondary to already completing it earlier today. Based on pt's report, pt QC would be a 2. Pt stated earlier this morning he was able to manage pants down but required assistance with hygiene and managing clothing up.) Toilet Transfer (QC): 4 (CGA during transfer. pt able to manuver w/c to grab bars, pull up on grab bars to stand and pivot over to BSC over the toilet. Pt able to transfer back to w/c utilizing grab bars with CGA.) Assessment/Plan Assessment and Plan Assess & Plan/Chief Complaint Assessment: Spinal cord trauma from severe stenosis Debility CAD Delirium now resolved s/p UTI completed treatment recurrent type Constipation related to surgery HTN HLP Cognitive deficit SLUMS Depression w/tearfulness Bladder incontinence improved on Dr Yasmeen cash Bowel incontinence improved now Delirium now resolved Plan: Monitor bowel and bladder incontinence IRF protocol Increase strength with IRF protocols BM regimen to hold due to loose stools Started antidepressant Monitor BP and holding most BP meds Dr Arana consultation is appreciated May be able to go home after DC after skilled care at discharge from inpatient rehabilitation since he needs 24/7 care Increase oral fluids Wound care management DC NHP Thursday (1) Spinal cord injury (2) Generalized Weakness (3) Cervical spinal stenosis Status: Acute (4) Neuroforaminal stenosis of spine Status: Acute (5) Essential (primary) hypertension Status: Chronic (6) Lumbar spinal stenosis Status: Acute (7) Slipped intervertebral disc Status: Acute (8) Delirium Status: Acute (9) Incidental durotomy Status: Acute (10) CAD (coronary artery disease) Status: Chronic YANETH REEDER DO Aug 30, 2019 11:58 POS
--- NOTE | 2019-08-30 12:26 | Speech Therapy Daily Note ---
Speech Daily Progress Note Subjective Date Seen by Provider: Aug 30, 2019 Time Seen by Provider: 00:30 Patient is anxious to go to SNF tomorrow. Objective Patient completed SLUMS with score of 28/30, initial evaluation was Assessment Assessment Current Status: Good Progress Treatment Plan Discontinue ST, Goals Met Speech Short Term Goals Short Term Goals Short Term Goals 1) Patient will complete memory tasks related to his daily needs at 90% or greater, independently. 2) Patient will complete problem solving tasks related to his daily needs at 90% or greater, independently. 3) Patient will complete safety awareness tasks related to his daily needs at 90% or greater, independently. Speech Knuckle Strap Sewer Goals Knuckle Strap Sewer Goals Patient will improve cognitive-communication necessary for safety and daily living tasks with minimal assist. Speech-Plan Patient/Family Goals Patient/Family Goals: Patient is being discharge to [facility] tomorrow. Treatment Plan Speech Therapy Treatment Plan: Discontinue ST, Goals Met Patient has made good progress as a result of skilled therapies. Treatment Duration: Aug 31, 2019 Frequency: 5 times per week Estimated Hrs Per Day: .5 hour per day Rehab Potential: Good Barriers to Learning: Patient has mild cognitive deficits although these has mostly resolved. Pt/Family Agrees to Plan: Yes Safety Risks/Education Teaching Recipient: Patient Teaching Methods: Discussion Response to Teaching: Verbalize Understanding Education Topics Provided: Continued importance of safety upon discharge. Discharge Recommendations QUALITY CODES: EXPRESSIVE OF IDEAS/WANTS: 4 UNDERSTANDING OF VERBAL CONTENT: 4 BRIEF INTERVIEW MENTAL STATUS: YES REPETITION OF 3 WORDS: 3 TEMPORAL ORIENTATION: YEAR: CORRECT, MONTH: CORRECT, DAY: CORRECT RECALL: SOCK YES WITH CUE COLOR YES WITHOUT CUE BED YES WITHOUT CUE MEMORY/RECALL ABILITY: LOCATION OF ROOM, SEASON, THAT HE IS IN THE HOSPITAL AND STAFF NAMES Time Speech Therapy Time In: 09:00 Speech Therapy Time Out: 09:30 Total Billed Time: 30 Billed Treatment Time 1, LANI NICOLE GODFREYJUANY KING Aug 30, 2019 12:26 POS
--- NOTE | 2019-08-30 14:14 | Physical Therapy Daily Note ---
PT Daily Note-Current Subjective pt in WC pre-tx. Pt agrees to PT this afternoon. Pt reports continued 5/10 pain in low back. Appearance pt in bed post-tx with room phone, call light, and tray table in reach with all needs met at this time Mental Status Patient Orientation: Person, Place, Time, Situation Transfers SCALE: Activities may be completed with or without assistive devices. 0-Guaquejcpt-vwicttz completes the activity by him/herself with no assistance from a helper. 5-Set-up or Clean-up Assistance-helper sets up or cleans up; patient completes activity. [place] assists only prior to or following the activity. 4-Supervision or Touching Assistance-helper provides verbal cues and/or touching/steadying and/or contact guard assistance as patient completes activity. Assistance may be provided throughout the activity or intermittently. 3-Partial/Moderate Assistance-helper does LESS THAN HALF the effort. [place] lifts, holds or supports trunk or limbs, but provides less than half the effort. 2-Substantial/Maximal Assistance-helper does MORE THAN HALF the effort. [place] lifts or holds trunk or limbs and provides more than half the effort. 9-Wppkgbnxr-fvyhwn does ALL the effort. Patient does none of the effort to complete the activity. Or, the assistance of 2 or more helpers is required for the patient to complete the activity. If activity was not attempted, code reason: 7-Patient Refused. 9-Not Applicable-not attempted and the patient did not perform the activity before the current illness, exacerbation or injury. 10-Not Attempted due to Environmental Limitations-(lack of equipment, weather restraints, etc.). 88-Not Attempted due to Medical Conditions or Safety Concerns. Sit to Lying (QC): 6 Sit to Stand (QC): 5 Weight Bearing Right Lower Extremity: Right Weight Bearing/Tolerated Left Lower Extremity: Left Weight Bearing/Tolerated Gait Training Distance: 200' Walk 10 feet (QC): 4 (SBA) Walk 50 ft with 2 Turns(QC): 4 (SBA) Walk 150 ft (QC): 4 (SBA) Gait Assistive Device: FWW Exercises Seated Therapy Exercises: Ankle pumps, Long arc quads, Hip flexion, Hamstring Curls, Hip abd/add Seated Reps: 30 (15 reps 2 sets) Treatments Pt performed bed mobility training, transfer training, skilled gait training, functional LE strengthening exercises, and education this date. Assessment Current Status: Good Progress Pt continues to have decreased LE fatigue with increased ambulation distance. Pt continues to be a fall risk secondary to the past knee henrietta. PT Short Term Goals Short Term Goals Time Frame: Aug 02, 2019 Wheelchair Distance: 50' x2 PT Jail Goals Edge Plugger Goals PT Edge Plugger Goals Time Frame: Aug 16, 2019 Sit to Lying (QC): 3 (Olu) Lying-Sitting on Side/Bed(QC): 3 (Kofi) Sit to Stand (QC): 1 Roll Left to Right (QC): 3 (Olu) Chair/Mev-yn-Nxobm Xfer(QC): 3 (Olu) Car Transfer (QC): 1 Walk 10 feet (QC): 88 Walk 10ft-Uneven Surface(QC): 88 Walk 50ft with 2 Turns (QC): 88 Walk 150 ft (QC): 88 Wheel 50 feet with 2 turns (QC: 5 1 Step (curb) (QC): 88 4 Steps (QC): 88 12 Steps (QC): 88 Picking up an Object (QC): 88 PT Plan Problem List Problem List: Activity Tolerance, Functional Strength, Safety, Balance, Gait, Transfer, Bed Mobility Treatment/Plan Treatment Plan: Continue Plan of Care Treatment Plan: Bed Mobility, Education, Functional Activity Jesus Alberto, Functional Strength, Group Therapy, Gait, Safety, Therapeutic Exercise, Transfers Treatment Duration: Aug 16, 2019 Frequency: At least 5 of 7 days/Wk (IRF) Estimated Hrs Per Day: 1.5 hours per day Patient and/or Family Agrees t: Yes Safety Risks/Education Patient Education: Gait Training, Transfer Techniques, Correct Positioning, Safety Issues Teaching Recipient: Patient Teaching Methods: Demonstration, Discussion Response to Teaching: Return Demonstration, Reinforcement Needed Time/GCodes Time In: 1240 Time Out: 1255 Total Billed Treatment Time: 15 Total Billed Treatment 1 visit EX 15' ALANA CISNEROS PT Aug 30, 2019 14:14 POS
--- NOTE | 2019-08-30 17:39 | NUR ---
RD ASSESSMENT PMHx: CAD; HTN; DC; chronic constipation PT INTERACTION: Pt was awake and pleasant during nutrition follow-up. Pt states current appetite is good. Note pt avg PO intake >75% x3d, an improvement from last assessment. Pt states no issues with n/v/c/d at this time. ABNORMAL NUTRITION-RELATED LAB VALUES: Cl 109 (H); BUN 19 (H); Pro 5.0 (L); alb 2.9 (L) Est. kcal needs: 9900-9053 kcal (25-30 kcal/kg) Est. Pro needs: 80-96 g Pro (1.0-1.2 g Pro/kg) PES STATEMENT: Given pt's current PO intake, no nutrition diagnosis at this time (NO-1.1) INTERVENTION: Continue with current diet order of Regular diet. From nutrition standpoint, pt is eating well and ready for discharge. MONITOR/EVALUATE: PO Intake; Plan of Care; Hydration Status; Weight Status; Lab Values Efe Mendez, MS, RD, LD Ext. [phone]
[2019-08-30 17:59] VITALS: BP 135/82
[2019-08-30] MEDS: risperiDONE 0.25 MG (RisperDAL) TAB PO SCH (20:14)
[2019-08-30] MEDS: DONEPEZIL 10 MG (ARICEPT) TAB PO SCH (20:14)
[2019-08-30] MEDS: TERAZOSIN 5 MG (HYTRIN) CAPSULE PO SCH (20:15)
[2019-08-30] MEDS: HYDROcodone/APAP 5 MG/325 MG (LORTAB) TAB PO PRN (20:20)
[2019-08-31 06:00] VITALS: BP 109/64
[2019-08-31] MEDS: PANTOPRAZOLE 40 MG (PROTONIX) TAB PO SCH (06:18)
[2019-08-31] MEDS: LACTOBACILLUS ACIDOPHILUS (PROBIOTIC) CAPSULE PO SCH (06:18)
--- NOTE | 2019-08-31 08:19 | Cardiology Progress Note ---
Subjective Date Seen by Provider: Aug 31, 2019 Time Seen by Provider: 08:18 Subjective/Events-last exam Patient sitting up in bed, denies any chest pain or dyspnea. Objective-Cardiology Exam Last Set of Vital Signs Vital Signs 08/31/19 06:00 Temp 36.0 Pulse 61 Resp 20 B/P (MAP) 109/64 (79) Pulse Ox 96 O2 Delivery Room Air Capillary Refill : Less Than 3 Seconds I&O Intake and Output 08/31/19 00:00 Intake Total 910 ml Output Total 350 ml Balance 560 ml Intake Oral 910 ml Output Urine Total 350 ml # Urine Diapers 3 # Bowel Movements 1 General: Alert, Oriented X3 HEENT: Atraumatic, EOMI Neck: Supple, No JVD, No Thyromegaly Lungs: Clear to Auscultation, Normal Air Movement Heart: Regular Rate, Normal S1, Normal S2, No Murmurs Abdomen: Normal Bowel Sounds, Soft, No Tenderness, No Hepatosplenomegaly, No Masses Extremities: No Clubbing, No Tenderness/Swelling Skin: No Rashes, No Breakdown, No Significant Lesion Neuro: Normal Speech, Normal Tone, Sensation Intact Psych/Mental Status: Mental Status NL A/P-Cardiology Admission Diagnosis Spinal Stenosis Chest pain CAD HTN Assessment/Plan Spinal stenosis, slipped disc, status post L2-3 laminectomy done on July 20, 2019, back pain improving. Continue PT/OT Chest pain, history of chronic stable angina, no further episodes of chest pain reported. Continue to monitor Coronary artery disease, history of CABG, multiple intervention the past, recent cardiac catheterization with drug-eluting stent deployment to the vein graft to the diagonal artery, had a patent GRACE to LAD with patent stent beyond the anastomosis in the LAD, small vessel disease otherwise done by Dr. Perez in [facility], currently back on Plavix. Continue to monitor Hypotension, probably secondary to pain medication and muscle relaxant, unable to tolerate any antihypertensive medication at this time, blood pressure improved, continue to monitor. Sinus bradycardia, better at this time, off beta blockers. Hyperlipidemia, maintained on statin Generalized weakness, lower and upper extremity weakness, cervical spinal stenosis with slipped disc, s/p L 2-[address] Bhatt. Dementia Clinical Quality Measures DVT/VTE Risk/Contraindication: Risk Factor Score Per Nursin RFS Level Per Nursing on Admit: 4+=Very High DESIRE FULLER Aug 31, 2019 08:19 POS
[2019-08-31] MEDS ORDERED: CYCL10TA9 PO (08:42)
[2019-08-31] MEDS ORDERED: BACI28.4 TOP (08:42)
[2019-08-31] MEDS ORDERED: DULO30CA3 PO (08:42)
[2019-08-31] MEDS ORDERED: HYDR-3584 PO (08:42)
[2019-08-31] MEDS ORDERED: OXC5T PO (08:42)
--- NOTE | 2019-08-31 08:43 | Discharge Inst-Skilled Nursing ---
Discharge Inst-Skilled NF Reconcile Patient Problems Problems Reviewed?: Yes Chief Complaint CC: Cervical spine injury non-traumatic HPI: This is a 78yoWM who presented to the Hospital with significant compromise in function, was found to have significant cervical spine stenosis causing generalized weakness globally, that was complicated with delirium post- operatively in addition to a UTI diagnosis. Pt previously doctored with Dr. Tyler Danielson and did not see a regular cutter aluminum sheet although he has had Bypass surgery and has known CAD. Pt was doing well but had a lengthy acute care course and is in need of significant rehabilitation, prior to returning home. He seems to be very depressed, very tearful when I meet him and reports that he is about to turn 79 next month. I have tried to reassure him and I have put in a hospital for behavioral medicine health consult in for him because of obvious tearfulness and overwhelmed feeling and loss of independence that he will need to be aggressively treated for in order to return home safely. Previously he used a walker for the past 6 months prior to admission, had lumbar spine surgery then was discharged home and home PT Collette Ramos evaluated the Pt to have such severe weakness that he was total care so he was sent to the ER for workup and from there thing progressed into cervical spine MRI showing severe stenosis and Dr. Bhatt performed surgery with good results but was so severe it was a dural tear during the surgery and he has become quite debilitated. He is urinating well, hasn't had a BM in several days so will need to work on that when he is admitted into the inpatient rehab unit. Overall he will be aggressively treated in order to re-gain his independence in order to return home. Patient Instructions Patient Problems: Spine surgery Delirium Dementia Presbycusis Goal: Return to independent living Consult/Follow Up/Orders Follow Up Appt.: Dr Danielson in 1 week Skilled NF Admit to: Certification (SNF) I certify that SNF services are required to be given on an inpatient basis because of the above named patient's need for residential care on a continuing basis for the conditions(s) for which he/she was receiving inpatient hospital services prior to his/her transfer to the SNF. Penitentiary Facility Order: Nursing Services, Kiln Stacker-Evaluate & Treat, Physical Therapy-Evaluate & Treat, Speech Language-Evaluate & Treat Oxygen Delivery Method: Room Air Discharge Diet: No Restrictions Daily Activity as Tolerated: Yes Resuscitation Status: Full Code New & Resume Previous Orders New Medications: Bacitracin (Bacitracin) 28.4 Gm Oint...g. 0 GM TOP BID for 30 Days, TUBE Cyclobenzaprine HCl (Cyclobenzaprine HCl) 10 Mg Tablet 10 MG PO TID PRN for SPASMS, #30 TAB Duloxetine HCl (Cymbalta) 30 Mg Capsule.dr 30 MG PO DAILY for 30 Days, CAP Hydroxyzine HCl (Hydroxyzine HCl) 10 Mg Tablet 10 MG PO TID PRN for anxiety for 30 Days, TAB Oxycodone Hcl (Oxyir Tablet) 5 Mg Tab 10 MG PO Q4H PRN for PAIN-SEVERE, #30 TAB Continued Medications: Acetaminophen (Tylenol Arthritis) 650 Mg Tablet.er 1300 MG PO BID, TAB TAKES 2 (650MG) TABLETS Aspirin (Aspirin EC) 81 Mg Tablet.dr 81 MG PO DAILY, TAB Cetirizine HCl (Cetirizine HCl) 10 Mg Tablet 10 MG PO DAILY, TAB Clopidogrel Bisulfate (Plavix) 75 Mg Tablet 75 MG PO DAILY, TAB Docusate Calcium (Docusate Calcium) 240 Mg Capsule 240 MG PO BID, CAP Donepezil HCl (Donepezil HCl) 10 Mg Tablet 10 MG PO HS, TAB Magnesium Oxide (Magnesium Oxide) 420 Mg Tablet 420 MG PO DAILY, TAB Naproxen (Naproxen) 500 Mg Tablet 500 MG PO BID, TAB Pantoprazole Sodium (Protonix) 40 Mg Tablet.dr 40 MG PO DAILY, TAB Ranitidine HCl (Zantac) 150 Mg Tablet 150 MG PO BID, TAB Simethicone (Gas-X) 125 Mg Tab.chew 125 MG PO BID, TAB Terazosin HCl (Terazosin HCl) 5 Mg Capsule 5 MG PO HS, CAP Tolterodine Tartrate (Detrol LA) 4 Mg Cap 4 MG PO DAILY, CAP Discontinued Medications: Amlodipine Besylate (Amlodipine Besylate) 10 Mg Tablet 10 MG PO HS, TAB Carvedilol (Coreg) 25 Mg Tab 25 MG PO BID, TAB Hydrocodone/Acetaminophen (Hydrocodone-Acetamin 5-325 mg) 1 Each Tablet 1 TAB PO Q6H PRN for PAIN-MODERATE, TAB Losartan/Hydrochlorothiazide (Losartan-Hctz 50-12.5 mg Tab) 1 Each Tablet 1 TAB PO DAILY, TAB LAST FILLED 07-04-19 #30 Adenike Reeder Aug 31, 2019 08:42 ADENIKE REEDER DO Aug 31, 2019 08:43 POS
--- NOTE | 2019-08-31 08:44 | Discharge Summary ---
Diagnosis/Chief Complaint Date of Admission Jul 26, 2019 at 11:00 Date of Discharge Discharge Date: Aug 31, 2019 Discharge Diagnosis Assessment: Spinal cord trauma from severe stenosis Debility CAD Delirium now resolved s/p UTI completed treatment recurrent type Constipation related to surgery HTN HLP Cognitive deficit SLUMS Depression w/tearfulness Bladder incontinence improved on Dr Arana recritu Bowel incontinence improved now Delirium now resolved Plan: Monitor bowel and bladder incontinence IRF protocol Increase strength with IRF protocols BM regimen to hold due to loose stools Started antidepressant Monitor BP and holding most BP meds Dr Arana consultation is appreciated May be able to go home after DC after skilled care at discharge from inpatient rehabilitation since he needs / care Increase oral fluids Wound care management DC NHP Thursday (1) Spinal cord injury (2) Generalized Weakness (3) Cervical spinal stenosis Status: Acute (4) Neuroforaminal stenosis of spine Status: Acute (5) Essential (primary) hypertension Status: Chronic (6) Lumbar spinal stenosis Status: Acute (7) Slipped intervertebral disc Status: Acute (8) Delirium Status: Acute (9) Incidental durotomy Status: Acute (10) CAD (coronary artery disease) Status: Chronic Discharge Summary Discharge Physical Examination Allergies: Coded Allergies: codeine (Verified Adverse Reaction, Severe, VOMITING, 07/12/19) Uncoded Allergies: TAPE (Allergy, Severe, BLISTERS, 07/12/19) Vitals & I&Os Vital Signs Date Time Temp Pulse Resp B/P (MAP) Pulse Ox O2 Delivery O2 Flow Rate FiO2 08/31/19 08:00 Room Air 08/31/19 06:00 36.0 61 20 109/64 (79) 96 General Appearance: Alert, Oriented X3, Cooperative Respiratory: Clear to Auscultation Cardiovascular: Regular Rate Neuro: Normal Speech, Strength at 5/5 X4 Ext Psych/Mental Status: Mental Status NL, Mood NL Hospital Course Was the Problem List Reviewed?: Yes Hospital Course: Pt had a lengthy hospital course for 37 days in inpatient rehab after transfer [facility] to inpatient rehab following extensive spine x2 with subsequentsevere deliriums/p UTI and severe debility with radiculopathy. Pt was maintained on aggressive regimen of PT along with pain medications and muscle relaxants and deliriumultimately resolved , he did have recurrence of UTI that was treated. Urology was consulted. Pt regained continence on medication that was given by Dr. Arana and overallpt improved so much but requireid 18/05 supervision by nurses so he needed to go to [facility] but due to dementiaand severe hard of hearing he will remain at senior living until family is able to take care of him at home. Labs (last 24 hrs) Laboratory Tests 07/26/19 11:00: Lab Scanned Report Referred Lab Report 07/27/19 04:37: White Blood Count 10.5, Red Blood Count 3.85L, Hemoglobin 11.8L, Hematocrit 35L, Mean Corpuscular Volume 90, Mean Corpuscular Hemoglobin 31, Mean Corpuscular Hemoglobin Concent 34, Red Cell Distribution Width 13.3, Platelet Count 279, Mean Platelet Volume 10.2, Neutrophils (%) (Auto) 85H, Lymphocytes (%) (Auto) 8L , Monocytes (%) (Auto) 8, Eosinophils (%) (Auto) 0, Basophils (%) (Auto) 0, Neutrophils # (Auto) 8.9H, Lymphocytes # (Auto) 0.8L, Monocytes # (Auto) 0.8, Eosinophils # (Auto) 0.0, Basophils # (Auto) 0.0, Sodium Level 139, Potassium Level 4.0, Chloride Level 106, Carbon Dioxide Level 23, Anion Gap 10, Blood Urea Nitrogen 24H, Creatinine 0.71, Estimat Glomerular Filtration Rate > 60, BUN/Creatinine Ratio 34, Glucose Level 133H, Calcium Level 8.3L, Corrected Calcium 9.0, Total Bilirubin 0.5, Aspartate Amino Transf (AST/SGOT) 13, Alanine Aminotransferase (ALT/SGPT) 21, Alkaline Phosphatase 54, Total Protein 5.4L, Albumin 3.1L 07/28/19 15:21: Glucometer 124H 08/01/19 05:13: White Blood Count 15.8H, Red Blood Count 4.58, Hemoglobin 14.1, Hematocrit 41, Mean Corpuscular Volume 90, Mean Corpuscular Hemoglobin 31, Mean Corpuscular Hemoglobin Concent 34, Red Cell Distribution Width 13.7, Platelet Count 298, Mean Platelet Volume 9.8, Neutrophils (%) (Auto) 90H, Lymphocytes (%) (Auto) 5L, Monocytes (%) (Auto) 5, Eosinophils (%) (Auto) 0, Basophils (%) (Auto) 0, Neutrophils # (Auto) 14.2H, Lymphocytes # (Auto) 0.7L, Monocytes # (Auto) 0.8, Eosinophils # (Auto) 0.0, Basophils # (Auto) 0.0, Neutrophils % (Manual) 88, Lymphocytes % (Manual) 3, Monocytes % (Manual) 5, Band Neutrophils 4, Blood Morphology Comment NORMAL 08/01/19 05:23: Sodium Level 137, Potassium Level 3.8, Chloride Level 106, Carbon Dioxide Level 22, Anion Gap 9, Blood Urea Nitrogen 27H, Creatinine 0.81, Estimat Glomerular F iltration Rate > 60, BUN/Creatinine Ratio 33, Glucose Level 119H, Calcium Level 8.2L, Corrected Calcium 8.7, Total Bilirubin 0.7, Aspartate Amino Transf (AST/SGOT) 12, Alanine Aminotransferase (ALT/SGPT) 25, Alkaline Phosphatase 69, Total Protein 5.8L, Albumin 3.4 08/08/19 04:25: Sodium Level 139, Potassium Level 3.6, Chloride Level 107, Carbon Dioxide Level 21, Anion Gap 11, Blood Urea Nitrogen 22H, Creatinine 0.80, Estimat Glomerular Filtration Rate > 60, BUN/Creatinine Ratio 28, Glucose Level 108H, Calcium Level 8.5, Corrected Calcium 9.2, Total Bilirubin 0.4, Aspartate Amino Transf (AST/SGOT) 12, Alanine Aminotransferase (ALT/SGPT) 18, Alkaline Phosphatase 90, Total Protein 5.9L, Albumin 3.1L, White Blood Count 7.1, Red Blood Count 4.28L, Hemoglobin 13.0L, Hematocrit 39L, Mean Corpuscular Volume 92, Mean Corpuscular Hemoglobin 30, Mean Corpuscular Hemoglobin Concent 33, Red Cell Distribution Width 13.4, Platelet Count 215, Mean Platelet Volume 9.8, Neutrophils (%) (Auto) 73, Lymphocytes (%) (Auto) 16, Monocytes (%) (Auto) 9, Eosinophils (%) (Auto) 2, Basophils (%) (Auto) 0, Neutrophils # (Auto) 5.2, Lymphocytes # (Auto) 1.1, Monocytes # (Auto) 0.6, Eosinophils # (Auto) 0.2, Basophils # (Auto) 0.0 08/09/19 14:45: Urine Color YELLOW, Urine Clarity CLEAR, Urine pH 5, Urine Specific [place] 1.020, Urine Protein 2+H, Urine Glucose (UA) NEGATIVE, Urine Ketones 1+H, Urine Nitrite POSITIVEH, Urine Bilirubin NEGATIVE, Urine Urobilinogen 4H, Urine Leukocyte Esterase 3+H, Urine RBC (Auto) 5+H, Urine RBC 10-25H, Urine WBC 25-50H , Urine Crystals NONE, Urine Bacteria LARGEH, Urine Casts NONE, Urine Mucus MODERATEH, Urine Culture Indicated YES 08/10/19 05:09: Sodium Level 139, Potassium Level 3.8, Chloride Level 106, Carbon Dioxide Level 22, Anion Gap 11, Blood Urea Nitrogen 28H, Creatinine 0.83, Estimat Glomerular Filtration Rate > 60, BUN/Creatinine Ratio 34, Glucose Level 92, Calcium Level 8.5, Corrected Calcium 9.3, Total Bilirubin 0.5, Aspartate Amino Transf (AST/SGOT) 13, Alanine Aminotransferase (ALT/SGPT) 16, Alkaline Phosphatase 93, Total Protein 5.8L, Albumin 3.0L, White Blood Count 8.7, Red Blood Count 3.99L, Hemoglobin 12.2L, Hematocrit 37L, Mean Corpuscular Volume 93, Mean Corpuscular Hemoglobin 31, Mean Corpuscular Hemoglobin Concent 33, Red Cell Distribution Width 13.5, Platelet Count 222, Mean Platelet Volume 9.4, Neutrophils (%) (Auto) 79H, Lymphocytes (%) (Auto) 13, Monocytes (%) (Auto) 7, Eosinophils (%) (Auto) 2, Basophils (%) (Auto) 0, Neutrophils # (Auto) 6.8, Lymphocytes # (Auto) 1.1, Monocytes # (Auto) 0.6, Eosinophils # (Auto) 0.2, Basophils # (Auto) 0.0 08/15/19 05:56: White Blood Count 5.6, Red Blood Count 4.38, Hemoglobin 13.3, Hematocrit 40, Mean Corpuscular Volume 92, Mean Corpuscular Hemoglobin 30, Mean Corpuscular Hemoglobin Concent 33, Red Cell Distribution Width 13.4, Platelet Count 327, Mean Platelet Volume 9.5, Neutrophils (%) (Auto) 65, Lymphocytes (%) (Auto) 21, Monocytes (%) (Auto) 10, Eosinophils (%) (Auto) 3, Basophils (%) (Auto) 1, Neutrophils # (Auto) 3.6, Lymphocytes # (Auto) 1.2, Monocytes # (Auto) 0.5, Eosinophils # (Auto) 0.2, Basophils # (Auto) 0.1, Sodium Level 136, Potassium Level 4.1, Chloride Level 105, Carbon Dioxide Level 19L, Anion Gap 12, Blood Urea Nitrogen 18, Creatinine 1.07, Estimat Glomerular Filtration Rate > 60, BUN/Creatinine Ratio 17, Glucose Level 86, Calcium Level 8.6, Corrected Calcium 9.1, Total Bilirubin 0.4, Aspartate Amino Transf (AST/SGOT) 17, Alanine Aminotransferase (ALT/SGPT) 18, Alkaline Phosphatase 118, Total Protein 6.0L, Albumin 3.4 08/22/19 04:35: White Blood Count 6.6, Red Blood Count 4.29L, Hemoglobin 13.0L, Hematocrit 40, Mean Corpuscular Volume 93, Mean Corpuscular Hemoglobin 30, Mean Corpuscular Hemoglobin Concent 33, Red Cell Distribution Width 14.0, Platelet Count 411H, Mean Platelet Volume 9.2, Neutrophils (%) (Auto) 64, Lymphocytes (%) (Auto) 21, Monocytes (%) (Auto) 12, Eosinophils (%) (Auto) 2, Basophils (%) (Auto) 1, Neutrophils # (Auto) 4.2, Lymphocytes # (Auto) 1.4, Monocytes # (Auto) 0.8, Eosinophils # (Auto) 0.1, Basophils # (Auto) 0.1, Sodium Level 139, Potassium Level 4.2, Chloride Level 106, Carbon Dioxide Level 21, Anion Gap 12, Blood Urea Nitrogen 16, Creatinine 0.83, Estimat Glomerular Filtration Rate > 60, BUN/Creatinine Ratio 19, Glucose Level 99, Calcium Level 8.7, Corrected Calcium 9.3, Total Bilirubin 0.3, Aspartate Amino Transf (AST/SGOT) 17, Alanine Aminotransferase (ALT/SGPT) 19, Alkaline Phosphatase 95, Total Protein 5.5L, Albumin 3.2 08/29/19 05:17: White Blood Count 5.2, Red Blood Count 3.88L, Hemoglobin 12.0L, Hematocrit 36L, Mean Corpuscular Volume 94, Mean Corpuscular Hemoglobin 31, Mean Corpuscular Hemoglobin Concent 33, Red Cell Distribution Width 13.7, Platelet Count 272, Mean Platelet Volume 9.6, Neutrophils (%) (Auto) 53, Lymphocytes (%) (Auto) 30, Monocytes (%) (Auto) 12, Eosinophils (%) (Auto) 2, Basophils (%) (Auto) 2, Neutrophils # (Auto) 2.8, Lymphocytes # (Auto) 1.6, Monocytes # (Auto) 0.6, Eo sinophils # (Auto) 0.1, Basophils # (Auto) 0.1, Sodium Level 142, Potassium Level 3.9, Chloride Level 109H, Carbon Dioxide Level 22, Anion Gap 11, Blood Urea Nitrogen 19H, Creatinine 0.78, Estimat Glomerular Filtration Rate > 60, BUN/Creatinine Ratio 24, Glucose Level 86, Calcium Level 8.5, Corrected Calcium 9.4, Total Bilirubin 0.3, Aspartate Amino Transf (AST/SGOT) 13, Alanine Aminotransferase (ALT/SGPT) 15, Alkaline Phosphatase 72, Total Protein 5.0L, Albumin 2.9L Microbiology 08/31/19 Influenza Types A,B Antigen (PEDRO) - Final, Complete 08/09/19 Urine Culture - Final, Complete Enterobacter aerogenes Pending Labs Microbiology Date/Time Source Procedure Growth Status 08/31/19 10:18 Nasopharynx Influenza Types A,B Antigen (PEDRO) - Final Complete 08/09/19 14:45 Urine Straight Cath, In/Out Urine Culture - Final Enterobacter aerogenes Complete Laboratory Tests 07/26/19 11:00: Lab Scanned Report Referred Lab Report 07/27/19 04:37: White Blood Count 10.5, Red Blood Count 3.85, Hemoglobin 11.8, Hematocrit 35, Mean Corpuscular Volume 90, Mean Corpuscular Hemoglobin 31, Mean Corpuscular Hemoglobin Concent 34, Red Cell Distribution Width 13.3, Platelet Count 279, Mean Platelet Volume 10.2, Neutrophils (%) (Auto) 85, Lymphocytes (%) (Auto) 8, Monocytes (%) (Auto) 8, Eosinophils (%) (Auto) 0, Basophils (%) (Auto) 0, Neutrophils # (Auto) 8.9, Lymphocytes # (Auto) 0.8, Monocytes # (Auto) 0.8, Eosinophils # (Auto) 0.0, Basophils # (Auto) 0.0, Sodium Level 139, Potassium Level 4.0, Chloride Level 106, Carbon Dioxide Level 23, Anion Gap 10, Blood Urea Nitrogen 24, Creatinine 0.71, Estimat Glomerular Filtration Rate > 60, BUN/Creatinine Ratio 34, Glucose Level 133, Calcium Level 8.3, Corrected Calcium 9.0, Total Bilirubin 0.5, Aspartate Amino Transf (AST/SGOT) 13, Alanine Aminotransferase (ALT/SGPT) 21, Alkaline Phosphatase 54, Total Protein 5.4, Albumin 3.1 07/28/19 15:21: Glucometer 124 08/01/19 05:13: White Blood Count 15.8, Red Blood Count 4.58, Hemoglobin 14.1, Hematocrit 41, Mean Corpuscular Volume 90, Mean Corpuscular Hemoglobin 31, Mean Corpuscular Hemoglobin Concent 34, Red Cell Distribution Width 13.7, Platelet Count 298, Mean Platelet Volume 9.8, Neutrophils (%) (Auto) 90, Lymphocytes (%) (Auto) 5, Monocytes (%) (Auto) 5, Eosinophils (%) (Auto) 0, Basophils (%) (Auto) 0, Neutrophils # (Auto) 14.2, Lymphocytes # (Auto) 0.7, Monocytes # (Auto) 0.8, Eosinophils # (Auto) 0.0, Basophils # (Auto) 0.0, Neutrophils % (Manual) 88, Lymphocytes % (Manual) 3, Monocytes % (Manual) 5, Band Neutrophils 4, Blood Morphology Comment NORMAL 08/01/19 05:23: Sodium Level 137, Potassium Level 3.8, Chloride Level 106, Carbon Dioxide Level 22, Anion Gap 9, Blood Urea Nitrogen 27, Creatinine 0.81, Estimat Glomerular Filtration Rate > 60, BUN/Creatinine Ratio 33, Glucose Level 119, Calcium Level 8.2, Corrected Calcium 8.7, Total Bilirubin 0.7, Aspartate Amino Transf (AST/SGOT) 12, Alanine Aminotransferase (ALT/SGPT) 25, Alkaline Phosphatase 69, Total Protein 5.8, Albumin 3.4 08/08/19 04:25: Sodium Level 139, Potassium Level 3.6, Chloride Level 107, Carbon Dioxide Level 21, Anion Gap 11, Blood Urea Nitrogen 22, Creatinine 0.80, Estimat Glomerular Filtration Rate > 60, BUN/Creatinine Ratio 28, Glucose Level 108, Calcium Level 8.5, Corrected Calcium 9.2, Total Bilirubin 0.4, Aspartate Amino Transf (AST/SGOT) 12, Alanine Aminotransferase (ALT/SGPT) 18, Alkaline Phosphatase 90, Total Protein 5.9, Albumin 3.1, White Blood Count 7.1, Red Blood Count 4.28, Hemoglobin 13.0, Hematocrit 39, Mean Corpuscular Volume 92, Mean Corpuscular Hemoglobin 30, Mean Corpuscular Hemoglobin Concent 33, Red Cell Distribution Width 13.4, Platelet Count 215, Mean Platelet Volume 9.8, Neutrophils (%) (Auto) 73, Lymphocytes (%) (Auto) 16, Monocytes (%) (Auto) 9, Eosinophils (%) (Auto) 2, Basophils (%) (Auto) 0, Neutrophils # (Auto) 5.2, Lymphocytes # (Auto) 1.1, Monocytes # (Auto) 0.6, Eosinophils # (Auto) 0.2, Basophils # (Auto) 0.0 08/09/19 14:45: Urine Color YELLOW, Urine Clarity CLEAR, Urine pH 5, Urine Specific [place] 1.020, Urine Protein 2+, Urine Glucose (UA) NEGATIVE, Urine Ketones 1+, Urine Nitrite POSITIVE, Urine Bilirubin NEGATIVE, Urine Urobilinogen 4, Urine Leukocyte Esterase 3+, Urine RBC (Auto) 5+, Urine RBC 10-25, Urine WBC 25-50, Urine Crystals NONE, Urine Bacteria LARGE, Urine Casts NONE, Urine Mucus MODERATE, Urine Culture Indicated YES 08/10/19 05:09: Sodium Level 139, Potassium Level 3.8, Chloride Level 106, Carbon Dioxide Level 22, Anion Gap 11, Blood Urea Nitrogen 28, Creatinine 0.83, Estimat Glomerular Filtration Rate > 60, BUN/Creatinine Ratio 34, Glucose Level 92, Calcium Level 8.5, Corrected Calcium 9.3, Total Bilirubin 0.5, Aspartate Amino Transf (AST/SGOT) 13, Alanine Aminotransferase (ALT/SGPT) 16, Alkaline Phosphatase 93, Total Protein 5.8, Albumin 3.0, White Blood Count 8.7, Red Blood Count 3.99, Hemoglobin 12.2, Hematocrit 37, Mean Corpuscular Volume 93, Mean Corpuscular Hemoglobin 31, Mean Corpuscular Hemoglobin Concent 33, Red Cell Distribution Width 13.5, Platelet Count 222, Mean Platelet Volume 9.4, Neutrophils (%) (Auto) 79, Lymphocytes (%) (Auto) 13, Monocytes (%) (Auto) 7, Eosinophils (%) (Auto) 2, Basophils (%) (Auto) 0, Neutrophils # (Auto) 6.8, Lymphocytes # (Auto) 1.1, Monocytes # (Auto) 0.6, Eosinophils # (Auto) 0.2, Basophils # (Auto) 0.0 08/15/19 05:56: White Blood Count 5.6, Red Blood Count 4.38, Hemoglobin 13.3, Hematocrit 40, Mean Corpuscular Volume 92, Mean Corpuscular Hemoglobin 30, Mean Corpuscular Hemoglobin Concent 33, Red Cell Distribution Width 13.4, Platelet Count 327, Mean Platelet Volume 9.5, Neutrophils (%) (Auto) 65, Lymphocytes (%) (Auto) 21, Monocytes (%) (Auto) 10, Eosinophils (%) (Auto) 3, Basophils (%) (Auto) 1, Neutrophils # (Auto) 3.6, Lymphocytes # (Auto) 1.2, Monocytes # (Auto) 0.5, Eosinophils # (Auto) 0.2, Basophils # (Auto) 0.1, Sodium Level 136, Potassium Level 4.1, Chloride Level 105, Carbon Dioxide Level 19, Anion Gap 12, Blood Urea Nitrogen 18, Creatinine 1.07, Estimat Glomerular Filtration Rate > 60, BUN/Creatinine Ratio 17, Glucose Level 86, Calcium Level 8.6, Corrected Calcium 9.1, Total Bilirubin 0.4, Aspartate Amino Transf (AST/SGOT) 17, Alanine Aminotransferase (ALT/SGPT) 18, Alkaline Phosphatase 118, Total Protein 6.0, Albumin 3.4 08/22/19 04:35: White Blood Count 6.6, Red Blood Count 4.29, Hemoglobin 13.0, Hematocrit 40, Mean Corpuscular Volume 93, Mean Corpuscular Hemoglobin 30, Mean Corpuscular Hemoglobin Concent 33, Red Cell Distribution Width 14.0, Platelet Count 411, Mean Platelet Volume 9.2, Neutrophils (%) (Auto) 64, Lymphocytes (%) (Auto) 21, Monocytes (%) (Auto) 12, Eosinophils (%) (Auto) 2, Basophils (%) (Auto) 1, Neutrophils # (Auto) 4.2, Lymphocytes # (Auto) 1.4, Monocytes # (Auto) 0.8, Eosinophils # (Auto) 0.1, Basophils # (Auto) 0.1, Sodium Level 139, Potassium Level 4.2, Chloride Level 106, Carbon Dioxide Level 21, Anion Gap 12, Blood Urea Nitrogen 16, Creatinine 0.83, Estimat Glomerular Filtration Rate > 60, BUN/Creatinine Ratio 19, Glucose Level 99, Calcium Level 8.7, Corrected Calcium 9.3, Total Bilirubin 0.3, Aspartate Amino Transf (AST/SGOT) 17, Alanine Aminotransferase (ALT/SGPT) 19, Alkaline Phosphatase 95, Total Protein 5.5, Albumin 3.2 08/29/19 05:17: White Blood Count 5.2, Red Blood Count 3.88, Hemoglobin 12.0, Hematocrit 36, Mean Corpuscular Volume 94, Mean Corpuscular Hemoglobin 31, Mean Corpuscular Hem oglobin Concent 33, Red Cell Distribution Width 13.7, Platelet Count 272, Mean Platelet Volume 9.6, Neutrophils (%) (Auto) 53, Lymphocytes (%) (Auto) 30, Monocytes (%) (Auto) 12, Eosinophils (%) (Auto) 2, Basophils (%) (Auto) 2, Neutrophils # (Auto) 2.8, Lymphocytes # (Auto) 1.6, Monocytes # (Auto) 0.6, Eosinophils # (Auto) 0.1, Basophils # (Auto) 0.1, Sodium Level 142, Potassium L evel 3.9, Chloride Level 109, Carbon Dioxide Level 22, Anion Gap 11, Blood Urea Nitrogen 19, Creatinine 0.78, Estimat Glomerular Filtration Rate > 60, BUN/Creatinine Ratio 24, Glucose Level 86, Calcium Level 8.5, Corrected Calcium 9.4, Total Bilirubin 0.3, Aspartate Amino Transf (AST/SGOT) 13, Alanine Aminotransferase (ALT/SGPT) 15, Alkaline Phosphatase 72, Total Protein 5.0, Albumin 2.9 Discharge Home Medications: Active Scripts Active Bacitracin 28.4 Gm Oint...g. 0 Gm TOP BID 30 Days Hydroxyzine HCl 10 Mg Tablet 10 Mg PO TID PRN 30 Days Cymbalta (Duloxetine HCl) 30 Mg Capsule.dr 30 Mg PO DAILY 30 Days Oxycodone IR (Oxycodone HCl) 5 Mg Tab 10 Mg PO Q4H PRN Cyclobenzaprine HCl 10 Mg Tablet 10 Mg PO TID PRN Reported Donepezil HCl 10 Mg Tablet 10 Mg PO HS Terazosin HCl 5 Mg Capsule 5 Mg PO HS Protonix (Pantoprazole Sodium) 40 Mg Tablet.dr 40 Mg PO DAILY Detrol LA (Tolterodine Tartrate) 4 Mg Cap 4 Mg PO DAILY Plavix (Clopidogrel Bisulfate) 75 Mg Tablet 75 Mg PO DAILY Naproxen 500 Mg Tablet 500 Mg PO BID Cetirizine HCl 10 Mg Tablet 10 Mg PO DAILY Tylenol Arthritis (Acetaminophen) 650 Mg Tablet.er 1,300 Mg PO BID TAKES 2 (650MG) TABLETS Gas-X (Simethicone) 125 Mg Tab.chew 125 Mg PO BID Zantac (Ranitidine HCl) 150 Mg Tablet 150 Mg PO BID Magnesium Oxide 420 Mg Tablet 420 Mg PO DAILY Aspirin EC (Aspirin) 81 Mg Tablet.dr 81 Mg PO DAILY Docusate Calcium 240 Mg Capsule 240 Mg PO BID Instructions to patient/family Please see electronic discharge instructions given to patient. Diagnosis/Problems Diagnosis/Problems (1) Spinal cord injury (2) Generalized Weakness (3) Cervical spinal stenosis Status: Acute (4) Neuroforaminal stenosis of spine Status: Acute (5) Essential (primary) hypertension Status: Chronic (6) Lumbar spinal stenosis Status: Acute (7) Slipped intervertebral disc Status: Acute (8) Delirium Status: Acute (9) Incidental durotomy Status: Acute (10) CAD (coronary artery disease) Status: Chronic Clinical Quality Measures DVT/VTE Risk/Contraindication: Risk Factor Score Per Nursin RFS Level Per Nursing on Admit: 4+=Very High YANETH REEDER DO Aug 31, 2019 08:44 POS
[2019-08-31] MEDS: DULoxetine 30 MG (CYMBALTA) CAP PO SCH (09:27)
[2019-08-31] MEDS: HYDROcodone/APAP 5 MG/325 MG (LORTAB) TAB PO PRN (09:27)
[2019-08-31] MEDS: TOLTERODINE LA 4 MG (DETROL) CAP PO SCH (09:27)
[2019-08-31] MEDS: LORATADINE (CLARITIN) 10 MG TAB PO SCH (09:28)
[2019-08-31] MEDS: CLOPIDOGREL 75 MG (PLAVIX) TABLET PO SCH (09:28)
[2019-08-31] MEDS: POLYETHYLENE GLYCOL 17 GM (MIRALAX) PACK PO SCH (09:28)
[2019-08-31] MEDS: BISACODYL 10 MG SUPP (DULCOLAX) PR SCH (09:28)
[2019-08-31] MEDS: SENNA W/DOCUSATE (SENOKOT S) TABLET PO SCH (09:28)
[2019-08-31] MEDS: DOCUSATE CALCIUM 240 MG (SURFAK) CAP PO SCH (09:28)
[2019-08-31] MEDS: BACITRACIN OINTMENT 28 GM TUBE TOP SCH (09:29)
[2019-08-31] MEDS: ASPIRIN E.C. 81 MG (ECOTRIN) TAB PO SCH (09:31)
--- NOTE | 2019-08-31 10:29 | Therapy Team Discharge Summary ---
Therapy Discharge Summary Discharge Recommendations Date of Discharge Therapy D/C Recommendations: [facility] (TCU/[facility]) Occupational Therapy Throughout course of therapy, OT worked on increasing pt's independence in ADLs, functional endurance, UE strengthening, and functional transfers. Pt currently is independent with eating, oral hygiene, and footwear, and he requires set up assistance for showering and UB dressing. Pt completed toilet transfer, being able to self propell w/c to grab bars, and transfer from w/c to BSC over toilet and back to w/c with CGA during transfer. Pt refused to complete toileting with OT but reports he is able to get his pants down but requires assistance with hygiene and managing his pants up. Pt requires partial assistance with LB dressing, he is able to complete all parts of donning/doffing LE clothing but requires min A during sit to stand transfer and CGA during stand. AE recommendations for pt include grab bars next to toilet and in shower area and BS for use over toilet for additional handles for pt to push up off of. At current level of function, OT recommends pt to discharge with continued therapy at shelter facility. Decreased Activ Tolerance, Decreased UE Strength, Impaired Funct Balance, Impaired I ADL's, Impaired Self-Care Skills PT Fpc Goals [employer] Goals PT [employer] Goals Time Frame: Aug 16, 2019 Roll Left to Right (QC): 3 (Olu) Sit to Lying (QC): 3 (Olu) Lying-Sitting on Side/Bed(QC): 3 (Kofi) Sit to Stand (QC): 1 Chair/[id number] Xfer(QC): 3 (Olu) Car Transfer (QC): 1 Walk 10 feet (QC): 88 Walk 10ft-Uneven Surface(QC): 88 Walk 50ft with 2 Turns (QC): 88 Walk 150 ft (QC): 88 Wheel 50 feet with 2 turns (QC: 5 1 Step (curb) (QC): 88 4 Steps (QC): 88 12 Steps (QC): 88 Picking up an Object (QC): 88 OT [employer] Goals [employer] Goals Time Frame: Sep 13, 2019 Eating (QC): 6 (met) Oral Hygiene (QC): 6 (met) Shower/Bathe Self (QC): 6 (not met) Upper Body Dressing (QC): 6 (not met) Lower Body Dressing (QC): 5 (not met) On/Off Footwear (QC): 6 (met) Toileting Hygiene (QC): 5 (not met) Toilet/Commode Transfer (QC): 5 (not met) Additional Goals: 1-Demonstrate ADL Tasks, 2-Verbalize Understanding, 3- ImproveStrength/Jesus Alberto 1=Demonstrate adherence to instructed precautions during ADL tasks. 2=Patient will verbalize/demonstrate understanding of assistive devices/modifications for ADL. 3=Patient will improve strength/tolerance for activity to enable patient to perform ADL's. Speech [employer] Goals Fpc Goals Patient will improve cognitive-communication necessary for safety and daily li ving tasks with minimal assist. RACHID OGLESBY OT Aug 31, 2019 10:29 POS
--- NOTE | 2019-08-31 11:24 | Therapy Team Discharge Summary ---
Therapy Discharge Summary Discharge Recommendations Date of Discharge 08/31/2019 Therapy D/C Recommendations: [facility] ([facility]) (PT) Physical Therapy This patient was admitted to ARU from acute after a complicated history involving heart surgery and then spinal cord dysfunction that rendered him unable to care for himself at home. His PLOF was mod indep with mobility using an AD> Upon admission to ARU, he was max to dependent with all transfers and bed mobility, unable to ambulate, dependent with wheelchair mobility and unable to attempt stairs. Treatment has focused on functional strengthening, balance training with progression of bed mobility, transfers and gait progression. Pt has made functional progress and is able to ambulate with SBA now. Currently, he is setup to mod indep with transfers and bed mobility, walking 150 ft with FWW with SBA and going up/down a curb step with min assist. His progress has b een significant but feel he is unable to care for himself at home alone at this time. Pt has met goals set but is not fully mod indep. Pt to transfer to a skilled facility and recommend continued skilled therapy services with the goal to return home as before. DC from ARU at this time. Occupational Therapy Decreased Activ Tolerance, Decreased UE Strength, Impaired Funct Balance, Impaired I ADL's, Impaired Self-Care Skills PT Nursing Home Goals Engineering Mathematician Goals PT Nursing Home Goals Time Frame: Aug 16, 2019 Roll Left to Right (QC): 3 (Olu) Sit to Lying (QC): 3 (Olu) Lying-Sitting on Side/Bed(QC): 3 (Kofi) Sit to Stand (QC): 1 Chair/Fxk-rw-Agnvy Xfer(QC): 3 (Olu) Car Transfer (QC): 1 Walk 10 feet (QC): 88 Walk 10ft-Uneven Surface(QC): 88 Walk 50ft with 2 Turns (QC): 88 Walk 150 ft (QC): 88 Wheel 50 feet with 2 turns (QC: 5 1 Step (curb) (QC): 88 4 Steps (QC): 88 12 Steps (QC): 88 Picking up an Object (QC): 88 Pt has met or exceeded all goals. Refer to visit on 08/30/19 for mobility scores. OT Nursing Home Goals Engineering Mathematician Goals Time Frame: Sep 13, 2019 Eating (QC): 6 (met) Oral Hygiene (QC): 6 (met) Shower/Bathe Self (QC): 6 (not met) Upper Body Dressing (QC): 6 (not met) Lower Body Dressing (QC): 5 (not met) On/Off Footwear (QC): 6 (met) Toileting Hygiene (QC): 5 (not met) Toilet/Commode Transfer (QC): 5 (not met) Additional Goals: 1-Demonstrate ADL Tasks, 2-Verbalize Understanding, 3-Impro veStrength/Jesus Alberto 1=Demonstrate adherence to instructed precautions during ADL tasks. 2=Patient will verbalize/demonstrate understanding of assistive devices/modifications for ADL. 3=Patient will improve strength/tolerance for activity to enable patient to perform ADL's. Speech Engineering Mathematician Goals Engineering Mathematician Goals Patient will improve cognitive-communication necessary for safety and daily living tasks with minimal assist. SNEHA ODONNELL PT Aug 31, 2019 11:24 POS
--- NOTE | 2019-08-31 11:40 | Therapy Team Discharge Summary ---
Therapy Discharge Summary Discharge Recommendations Date of Discharge Therapy D/C Recommendations: Care Home (TCU/NH) (PT) Occupational Therapy Decreased Activ Tolerance, Decreased UE Strength, Impaired Funct Balance, Impaired I ADL's, Impaired Self-Care Skills Speech-Language Pathology Patient was admitted to the ARU s/p spinal surgery. The patient was given the SLUMS at bedside. Patient scored in the MNCD range of function initially. He progressed and on re-evaluation score is within the normal range. He has met all skilled ST goals. Patient is discharging today to SNF. He is also discharging from skilled ST. PT Custodial Goals Custodial Goals PT Custodial Goals Time Frame: Aug 16, 2019 Roll Left to Right (QC): 3 (Olu) Sit to Lying (QC): 3 (Olu) Lying-Sitting on Side/Bed(QC): 3 (Kofi) Sit to Stand (QC): 1 Chair/Qdx-oh-Crtel Xfer(QC): 3 (Olu) Car Transfer (QC): 1 Walk 10 feet (QC): 88 Walk 10ft-Uneven Surface(QC): 88 Walk 50ft with 2 Turns (QC): 88 Walk 150 ft (QC): 88 Wheel 50 feet with 2 turns (QC: 5 1 Step (curb) (QC): 88 4 Steps (QC): 88 12 Steps (QC): 88 Picking up an Object (QC): 88 OT Custodial Goals Digital Asset Coordinator Goals Time Frame: Sep 13, 2019 Eating (QC): 6 (met) Oral Hygiene (QC): 6 (met) Shower/Bathe Self (QC): 6 (not met) Upper Body Dressing (QC): 6 (not met) Lower Body Dressing (QC): 5 (not met) On/Off Footwear (QC): 6 (met) Toileting Hygiene (QC): 5 (not met) Toilet/Commode Transfer (QC): 5 (not met) Additional Goals: 1-Demonstrate ADL Tasks, 2-Verbalize Understanding, 3- ImproveStrength/Jesus Alberto 1=Demonstrate adherence to instructed precautions during ADL tasks. 2=Patient will verbalize/demonstrate understanding of assistive devices/modifications for ADL. 3=Patient will improve strength/tolerance for activity to enable patient to perform ADL's. Speech Custodial Goals Custodial Goals Patient will improve cognitive-communication necessary for safety and daily living tasks with minimal assist. Met PATRICIA GODFREY Aug 31, 2019 11:40 POS
--- NOTE | 2019-08-31 12:00 | NUR ---
ALEXANDREA MANN demonstrates understanding of discharge instructions and accurately returns instructions upon questioning. Copy of Post-Discharge Instructions given to . ALEXANDREA MANN is/is not able to manage continuing needs after discharge. Patients belongings returned. Patient discharged from 222-1 on 08/31/2019 at 1200. ALEXANDREA MANN left floor via wheelchair, accompanied by [facility] Staff.
== END 2019-08-31 12:00 | DRG 92 ==
PROVIDERS: ADMIT Internal Medicine; ATTEND Internal Medicine
DX: G95.89 Other specified diseases of spinal cord (principal); Z47.89 Encounter for other orthopedic aftercare; J44.9 Chronic obstructive pulmonary disease, unspecified; F03.90 Unspecified dementia, unspecified severity, without behavioral disturbance, psychotic disturbance, mood disturbance, and anxiety; I25.119 Atherosclerotic heart disease of native coronary artery with unspecified angina pectoris; R32 Unspecified urinary incontinence; R15.9 Full incontinence of feces; N39.0 Urinary tract infection, site not specified; I10 Essential (primary) hypertension; F32.9 Major depressive disorder, single episode, unspecified; K59.00 Constipation, unspecified; E78.5 Hyperlipidemia, unspecified; R00.1 Bradycardia, unspecified; B96.89 Other specified bacterial agents as the cause of diseases classified elsewhere; I25.2 Old myocardial infarction; Z95.1 Presence of aortocoronary bypass graft; Z95.5 Presence of coronary angioplasty implant and graft; T81.31XA Disruption of external operation (surgical) wound, not elsewhere classified, initial encounter; N40.1 Benign prostatic hyperplasia with lower urinary tract symptoms; N32.81 Overactive bladder; Z23 Encounter for immunization
CPT/HCPCS: 36415; 80053; 81000; 82962; 85007; 85025; 85027; 87077; 87088; 87186; 87804; 94640; 94760

== ENCOUNTER 2019-09-15 19:23 | Emergency (ER) | payer OTHER, MEDICARE ==
[~2019-09-15] VITALS: Ht 175.2 cm; Wt 79.0 kg
[~2019-09-15 19:23] MED LIST changes: +BACI28.4 TOP; +CYCL10TA9 PO; +DULO30CA3 PO; +HYDR-3584 PO; +OXC5T PO
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
[2019-09-15 20:41] LABS: BASOPHILS # (AUTO) 0.1 10^3/uL (0.0-0.1); BASOPHILS % (AUTO) 2 % (0-10); EOSINOPHILS # (AUTO) 0.3 10^3/uL (0.0-0.3); EOSINOPHILS % (AUTO) 5 % (0-10); HEMATOCRIT 36 % (40-54); HEMOGLOBIN 11.8 G/DL (13.3-17.7); LYMPHOCYTES # (AUTO) 1.8 X 10^3 (1.0-4.0); LYMPHOCYTES % (AUTO) 27 % (12-44); MEAN CORPUSCULAR HGB CONC 33 G/DL (32-36); MEAN CORPUSCULAR VOLUME 92 FL (80-99); MEAN PLATELET VOLUME 9.3 FL (7.4-10.4); MONOCYTES # (AUTO) 0.7 X 10^3 (0.0-1.0); MONOCYTES % (AUTO) 10 % (0-12); NEUTROPHILS # (AUTO) 3.8 X 10^3 (1.8-7.8); NEUTROPHILS % (AUTO) 57 % (42-75); PLATELET COUNT 296 10^3/uL (130-400); RED CELL DISTRIBUTION WIDTH 14.4 % (10.0-14.5); WHITE BLOOD COUNT 6.7 10^3/uL (4.3-11.0)
[2019-09-15 20:51] LABS: MEAN CORPUSCULAR HEMOGLOBIN 30 PG (25-34); PROTHROMBIN TIME PATIENT 13.2 SEC (12.2-14.7)
[2019-09-15 20:57] LABS: BUN/CREATININE RATIO 32; CALCIUM 8.6 MG/DL (8.5-10.1); CARBON DIOXIDE 20 MMOL/L (21-32); CHLORIDE 110 MMOL/L (98-107); CREATININE SERUM 0.73 MG/DL (0.60-1.30); GFR ESTIMATED > 60; GLUCOSE 113 MG/DL (70-105); POTASSIUM 3.1 MMOL/L (3.6-5.0); SODIUM 142 MMOL/L (135-145)
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
[2019-09-16 00:07] VITALS: BP 121/71
== END 2019-09-15 22:00 | disposition home or self-care (01) ==
LOC: EDUNIT# 19:23 → ER 19:24
DX: T84.9XXA Unspecified complication of internal orthopedic prosthetic device, implant and graft, initial encounter (principal); S20.219A Contusion of unspecified front wall of thorax, initial encounter; J44.9 Chronic obstructive pulmonary disease, unspecified; I25.10 Atherosclerotic heart disease of native coronary artery without angina pectoris; I10 Essential (primary) hypertension; I25.2 Old myocardial infarction; E78.00 Pure hypercholesterolemia, unspecified; F03.90 Unspecified dementia, unspecified severity, without behavioral disturbance, psychotic disturbance, mood disturbance, and anxiety; F32.9 Major depressive disorder, single episode, unspecified; Z95.1 Presence of aortocoronary bypass graft; Z95.5 Presence of coronary angioplasty implant and graft; Z88.5 Allergy status to narcotic agent; Z88.8 Allergy status to other drugs, medicaments and biological substances; Z79.82 Long term (current) use of aspirin; Z79.02 Long term (current) use of antithrombotics/antiplatelets; Z87.891 Personal history of nicotine dependence; Z90.49 Acquired absence of other specified parts of digestive tract; W34.09XA Accidental discharge from other specified firearms, initial encounter
CPT/HCPCS: 36415; 71046; 71250; 80048; 85025; 85610; 85730; 93005

== ENCOUNTER 2021-09-27 13:36 | Emergency (ER) | payer MEDICARE ==
[~2021-09-27] VITALS: Ht 172 cm; Wt 77.0 kg
[~2021-09-27 13:36] MED LIST changes: +ACHD5005 PO; +AMLO-251 PO; -AMLO10TA7 PO; +ASPI-1238 PO; -ASPI-983 PO; +CYCL10TA25 PO; -CYCL10TA9 PO; -HYDR-3812 PO; +TERA5CAP10 PO; -TERA5CAP3 PO
--- OUTSIDE RECORDS SUMMARY | 2021-09-27 13:41 | XMS REPORT | Clinical Summary ---
Author Author [facility] Organization [facility] Address Unknown Phone Unavailable Care Team Providers Care Wet Process Miller Head Assistant Name Role Phone David Morgan MD Unavailable David Morgan MD PCP Source Comments Some departments are not documenting in the electronic medical record. If you d o not see the information that you expected, contact Release of Information in [facility] [employer] Information Management department at [phone] for further assistan ce in locating additional records.[facility] Allergies Comments Active Allergy Reactions Severity Noted Date Codeine NAUSEA AND Low 04/19/2015 VOMITING Medications End Date Status Medication Sig Dispensed Refills Start Date Active clopiDOGrel (PLAVIX) 75 Take 75 mg by 0 mg tablet mouth daily. Active amLODIPine (NORVASC) 5 mg Take 5 mg by 0 tablet mouth daily. Active carvedilol (COREG) 25 mg Take 25 mg by 0 tablet mouth twice daily with meals. Active HYDROCODONE BIT/HOMATROP Take by 0 ME-BR (HYDROCODONE mouth. COMPOUND PO) Active ASPIRIN PO Take by 0 mouth. Active ranitidine(+) (ZANTAC) Take 150 mg 0 150 mg tablet by mouth twice daily. Active CALCIUM PO Take by 0 mouth. Active finasteride (PROSCAR) 5 Take 1 Tab by 90 Tab 0 08/17/ mg tablet mouth daily. 5 Active terazosin (HYTRIN) 2 mg Take 2 mg (1 21 Cap 0 1 201 capsule cap) by mouth 5 at bedtime x 1 week, then 4 mg (2 caps) by mouth at bedtime x 1 week. May then switch to 5 mg caps as directed. Active terazosin (HYTRIN) 5 mg Take 1 Cap by 30 Cap 2 capsule mouth at 5 bedtime daily. Active tolterodine LA(+) (DETROL Take 1 Cap by 90 Cap 3 LA) 2 mg capsule mouth daily. 5 Do not cut/ crush/ chew Active Problems Problem Noted Date Urge incontinence 04/19/2015 Overview: Formatting of this note might be differ ent from the original. 10+y history of difficulty urinating wi th repeated episodes of incontinence with urgency (+) frequency at night (q2h), urgency a t all times, dysuria occasionally, weak and intermittent stream. TURP 2005 [facility] [place] 2012, 2013 PSA 0.4 40g+ prostate L ast Assessment & Plan: Formatting of this note might be differ ent from the original. With his complicated history of multipl e procedures as well as failure of medications, we obtain urodynamics with a cystoscopy here in the clinic. - This will give us a better picture of his pressures as well as evaluate for detrusor overactivity vs outlet obs truction and need for appropriate medication vs procedure - Will evaluate for urethral stricture, recurrent bladder neck contracture, or other anatomic source of his problem s Urinary frequency 04/19/2015 Hematuria 04/19/2015 Overview: Formatting of this note might be differ ent from the original. He does have a history of stones, but n otes a couple occasions in the last month of hematuria. Believes he may have passed a stones ab out 2 weeks ago. No current symptoms of stones. L ast Assessment & Plan: Formatting of this note might be differ ent from the original. - Will obtain a CT Urogram for history of hematuria and former smoker. - Need to rule out other etiologies [place] n though he has a history of stones. History of kidney stones 04/19/2015 Surgical History Surgery Date Site/Laterality Comments HX CORONARY ARTERY BYPASS GRAFT COLON SURGERY HERNIA REPAIR HX JOINT REPLACEMENT KIDNEY STONE SURGERY PENIS SURGERY PROSTATE SURGERY Medical History Medical History Date Comments Anxiety disorder Arthritis Enlarged prostate Colon polyps Cataract Depression DM (diabetes mellitus) (HCC) Dyslipidemia Heart disease Heart attack (HCC) Hypertension Incontinence Stroke (HCC) Social History Date Tobacco Use Types Packs/Day Years Used Former Smoker Smokeless Tobacco: Never Used Comments Alcohol Use Standard Drinks/Week quit 1973 No 0 (1 standard drink = 0.6 o z pure alcohol) Sex Assigned at Date Recorded Not on file Last Filed Vital Signs Reading Time Taken Comments Vital Sign 123/73 10/03/2015 12:57 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 Blood Pressure 62 10/03/2015 12:57 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 Pulse - - Temperature - - Respiratory Rate - - Oxygen Saturation - - Inhaled Oxygen Concentration 112.7 kg (248 lb 6.4 oz) 10/03/2015 12:57 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 Weight 175.3 cm (5' 9.02") 10/03/2015 12:57 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 Height 36.67 10/03/2015 12:57 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 Body Mass Index Plan of Treatment Health Maintenance Due Date Last Done Comments MEDICARE ANNUAL WELLNESS 1942 VISIT DTAP/TDAP VACCINES (1 - 1960 Tdap) HEPATITIS C SCREENING 1960 PHYSICAL (COMPREHENSIVE) 1960 EXAM SHINGLES RECOMBINANT 1992 VACCINE (1 of 2) PNEUMONIA (PPSV23) 2007 VACCINE (1 of 1 - PPSV23) INFLUENZA VACCINE 05/26/2021 Results Not on filefrom Last 3 Months Insurance Type Payer Benefit Subscriber ID Effective Phone Address Plan / Dates Group Medicare MEDICARE MEDICARE [id number] 1997-P [phone] [address] [place] [address] [facility] [id number] 1997-P [id number] [place] [address] Advance Directives Patient Info Specialist Explanation Type Date Recorded Advance 04/19/2015 2:08 PM Directive/DPOA Care Teams Start Date End Date Wet Process Miller Head Assistant Relationship Specialty 07/19/15 David Morgan MD PCP - General Urology [address] [facility] [address] [place] [address] 04/19/15 David Morgan MD Urology [address] [facility] [address] [place] [address]
--- NOTE | 2021-09-27 14:39 | ED General ---
General Chief Complaint: General Problems/Pain Stated Complaint: BI LAT LEG PAIN Nursing Triage Note: TO ED PER W/C FROM HOME ACCOMPIED BY DAUGHTER WITH BACK BRACE IN PLACE HAS CHRONIC BACK PROBLEMS HERE TO SEE IF HE COULD GET SOME REHAB Source of Information: Patient, Family Exam Limitations: No Limitations History of Present Illness Date Seen by Provider: Sep 27, 2021 Time Seen by Provider: 14:30 Initial Comments Patient is a 81-year-old male who presents to the emergency department today with a chief complaint of lower thoracic upper lumbar back pain. He complains of pain radiating down his right thigh all the way to his right foot. Patient feels weak and states he cannot stand upright due to the pain. He says that he is incontinent, he has to sit to pee and often dribbles urine. He denies numbness to his groin or numbness to his leg. He states his back pain also causes pain in his left leg but the right is more severe. He takes Tylenol arthritis for pain. Denies any recent falls or trauma. Has had a history of back surgery x2 by Dr. Bhatt at [place] [address] states, 2 years ago. [facility], no local physician. Has not had follow-up with Dr. Bhatt. States he has been to [facility] in [place] as well as [facility] about a year ago and no interventions were done. He cannot recall the last time his back was imaged. Finally today his pain was so uncomfortable he decided to come due to the above- stated complaints. No recent fevers or chills, productive cough. All other review of systems reviewed and negative except as stated. Timing/Duration: Constant Severity: Moderate Modifying Factors: worse with Movement Associated Systoms: Weakness (porr appetite) Allergies and Home Medications Allergies Coded Allergies: codeine (Verified Adverse Reaction, Severe, VOMITING, 07/12/19) Uncoded Allergies: TAPE (Allergy, Severe, BLISTERS, 07/12/19) Patient Home Medication List Home Medication List Reviewed: Yes Acetaminophen (Tylenol Arthritis) 650 Mg Tablet.er, 1,300 MG PO BID, (Reported) Entered as Reported by: SHIVA RYDER on 07/13/19 1005 Aspirin (Aspirin EC) 81 Mg Tablet.dr, 81 MG PO DAILY, (Reported) Entered as Reported by: SHIVA RYDER on 07/13/19 1005 Bacitracin (Bacitracin) 28.4 Gm Oint...g., 0 GM TOP BID Prescribed by: YANETH REEDER on 08/31/19 0842 Cetirizine HCl (Cetirizine HCl) 10 Mg Tablet, 10 MG PO DAILY, (Reported) Entered as Reported by: SHIVA RYDER on 07/13/19 100 Clopidogrel Bisulfate (Plavix) 75 Mg Tablet, 75 MG PO DAILY, (Reported) Entered as Reported by: SHIVA RYDER on 07/13/19 100 Cyclobenzaprine HCl (Cyclobenzaprine HCl) 10 Mg Tablet, 10 MG PO TID PRN for SPASMS Prescribed by: YANETH REEDER on 08/31/19 08 Docusate Calcium (Docusate Calcium) 240 Mg Capsule, 240 MG PO BID, (Reported) Entered as Reported by: SHIVA RYDER on 07/13/19 100 Donepezil HCl (Donepezil HCl) 10 Mg Tablet, 10 MG PO HS, (Reported) Entered as Reported by: SHIVA RYDER on 07/13/19 1433 Duloxetine HCl (Cymbalta) 30 Mg Capsule.dr, 30 MG PO DAILY Prescribed by: YANETH REEDER on 08/31/19 08 Hydroxyzine HCl (Hydroxyzine HCl) 10 Mg Tablet, 10 MG PO TID PRN for anxiety Prescribed by: YANETH REEDER on 08/31/19 08 Magnesium Oxide (Magnesium Oxide) 420 Mg Tablet, 420 MG PO DAILY, (Reported) Entered as Reported by: SHIVA RYDER on 07/13/19 100 Naproxen (Naproxen) 500 Mg Tablet, 500 MG PO BID, (Reported) Entered as Reported by: SHIVA RYDER on 07/13/19 100 Oxycodone Hcl (Oxycodone IR) 5 Mg Tab, 10 MG PO Q4H PRN for PAIN-SEVERE Prescribed by: YANETH REEDER on 08/31/19 08 Pantoprazole Sodium (Protonix) 40 Mg Tablet.dr, 40 MG PO DAILY, (Reported) Entered as Reported by: SHIVA RYDER on 07/13/19 100 Ranitidine HCl (Zantac) 150 Mg Tablet, 150 MG PO BID, (Reported) Entered as Reported by: SHIVA RYDER on 07/13/19 100 Simethicone (Gas-X) 125 Mg Tab.chew, 125 MG PO BID, (Reported) Entered as Reported by: SHIVA RYDER on 07/13/19 1005 Terazosin HCl (Terazosin HCl) 5 Mg Capsule, 5 MG PO HS, (Reported) Entered as Reported by: SHIVA RYDER on 07/13/19 100 Tolterodine Tartrate (Detrol LA) 4 Mg Cap, 4 MG PO DAILY, (Reported) Entered as Reported by: SHIVA RYDER on 07/13/19 1005 Review of Systems Review of Systems Constitutional: see HPI EENTM: no symptoms reported Respiratory: no symptoms reported Cardiovascular: no symptoms reported Gastrointestinal: diarrhea Genitourinary: frequency, other (dribbling/incontinence) Musculoskeletal: back pain (lower thoracic, upper lumbar) Skin: no symptoms reported Psychiatric/Neurological: Weakness (due to pain RLE) All Other Systems Reviewed Negative Unless Noted: Yes Past Btdgcnm-Efvfhc-Sdsnwu Hx Patient Social History Tobacco Use?: No Substance use?: No Immunizations Up To Date First/Initial COVID19 Vaccinat: 12/01 Second COVID19 Vaccination [place]: 12/29 COVID19 Vaccine Sales Development Director: JAMILAHUT Seasonal Allergies Seasonal Allergies: No Past Medical History Surgeries: Yes Appendectomy, CABG, Coronary Stent, Gallbladder, Orthopedic Respiratory: Yes COPD Currently Using CPAP: No Currently Using BIPAP: No Cardiac: Yes Coronary Artery Disease, Heart Attack, High Cholesterol, Hypertension Neurological: No Dementia Genitourinary: Yes (INCONTINENCE) Gastrointestinal: Yes Chronic Constipation Musculoskeletal: Yes (CHRONIC NECK AND BACK PAIN--S/P CERVICAL AND LUMBAR SPINE SURGERY) Degenerate Disk Disease, Arthritis, Chronic Back Pain Endocrine: Yes (HYPOGLYCEMIA ) HEENT: Yes ("CAN'T SEE WELL - I DON'T KNOW WHY") Hearing Impairment: Hard of Hearing, Bilateral Hearing Aide Cancer: No Psychosocial: Yes Depression Integumentary: No Blood Disorders: No Family Medical History Patient reports no known family medical history. Physical Exam Vital Signs Vital Signs - First Documented 09/27/21 09/27/21 13:53 15:31 Temp 36.8 Pulse 62 Resp 18 B/P (MAP) 134/77 (96) Pulse Ox 96 O2 Delivery Room Air Capillary Refill : Less Than 3 Seconds Height, Weight, BMI Height: '" Weight: lbs. oz. kg; 26.00 BMI Method: General Appearance: No Apparent Distress, WD/WN Eyes: Bilateral Eye Normal Inspection, Bilateral Eye PERRL, Bilateral Eye EOMI HEENT: PERRL/EOMI Neck: Normal Inspection Respiratory: Lungs Clear, Normal Breath Sounds, No Accessory Muscle Use, No Respiratory Distress Cardiovascular: Regular Rate, Rhythm Gastrointestinal: Normal Bowel Sounds, Non Tender, Soft Back: No Vertebral Tenderness (upper lumbar midline; patient unable to perform SLR due to pain; unable to dorsiflex great toes due to pain - initial attempt is strong, but cannot sustain; no groin numbness) Extremity: Normal Inspection, Normal Range of Motion, No Calf Tenderness Neurologic/Psychiatric: Alert, Oriented x3, No Motor/Sensory Deficits, Normal Mood/Affect, project management it specialist II-XII Norm as Tested Skin: Normal Color, Warm/Dry Progress/Results/Core Measures Suspected Sepsis SIRS Temperature: Pulse: 62 Respiratory Rate: 18 Laboratory Tests 09/27/21 15:29: White Blood Count 6.0 Blood Pressure 134 /77 Mean: 96 Laboratory Tests 09/27/21 15:29: Creatinine 1.17, Platelet Count 235 Results/Orders Lab Results Laboratory Tests Test 09/27/21 15:29 09/27/21 16:07 Range/Units White Blood Count 6.0 4.3-11.0 10^3/uL Red Blood Count 3.95 L 4.30-5.52 10^6/uL Hemoglobin 12.8 L 13.3-17.7 g/dL Hematocrit 39 L 40-54 % Mean Corpuscular Volume 98 80-99 fL Mean Corpuscular Hemoglobin 32 25-34 pg Mean Corpuscular Hemoglobin Concent 33 32-36 g/dL Red Cell Distribution Width 13.3 10.0-14.5 % Platelet Count 235 130-400 10^3/uL Mean Platelet Volume 9.3 9.0-12.2 fL Immature Granulocyte % (Auto) 1 % Neutrophils (%) (Auto) 65 42-75 % Lymphocytes (%) (Auto) 22 12-44 % Monocytes (%) (Auto) 9 0-12 % Eosinophils (%) (Auto) 3 0-10 % Basophils (%) (Auto) 1 0-10 % Neutrophils # (Auto) 3.9 1.8-7.8 X 10^3 Lymphocytes # (Auto) 1.3 1.0-4.0 X 10^3 Monocytes # (Auto) 0.6 0.0-1.0 X 10^3 Eosinophils # (Auto) 0.2 0.0-0.3 10^3/uL Basophils # (Auto) 0.1 0.0-0.1 10^3/uL Immature Granulocyte # (Auto) 0.0 0.0-0.1 10^3/uL Sodium Level 141 135-145 MMOL/L Potassium Level 3.9 3.6-5.0 MMOL/L Chloride Level 107 98-107 MMOL/L Carbon Dioxide Level 25 21-32 MMOL/L Anion Gap 9 5-14 MMOL/L Blood Urea Nitrogen 26 H 7-18 MG/DL Creatinine 1.17 0.60-1.30 MG/DL Estimat Glomerular Filtration Rate 60 BUN/Creatinine Ratio 22 Glucose Level 96 70-105 MG/DL Calcium Level 9.4 8.5-10.1 MG/DL Urine Color ORANGE Urine Clarity CLEAR Urine pH 6.0 5-9 Urine Specific [place] 1.025 H 1.016-1.022 Urine Protein NEGATIVE NEGATIVE Urine Glucose (UA) NEGATIVE NEGATIVE Urine Ketones NEGATIVE NEGATIVE Urine Nitrite NEGATIVE NEGATIVE Urine Bilirubin NEGATIVE NEGATIVE Urine Urobilinogen 0.2 < = 1.0 MG/DL Urine Leukocyte Esterase NEGATIVE NEGATIVE Urine RBC (Auto) NEGATIVE NEGATIVE Urine RBC NONE /HPF Urine WBC NONE /HPF Urine Squamous Epithelial Cells 0-2 /HPF Urine Crystals NONE /LPF Urine Bacteria NEGATIVE /HPF Urine Casts NONE /LPF Urine Mucus NEGATIVE /LPF Urine Culture Indicated NO My Orders Orders - COLETTE ROGERS MD Cbc With Automated Diff (09/27/21 14:55) Basic Metabolic Panel (09/27/21 14:55) Ua Culture If Indicated (09/27/21 14:55) Chest 1 View, Ap/Pa Only (09/27/21 14:55) Ct Lumbar Spine Wo (09/27/21 14:55) Tramadol Tablet (Ultram Tablet) (09/27/21 15:00) Bladder Scan (09/27/21 16:09) Medications Given in ED Current Medications Medications Dose Ordered Sig/Gil Route Start Time Stop Time Status Last Admin Dose Admin Tramadol HCl 50 mg ONCE ONCE PO 09/27/21 15:00 09/27/21 15:01 DC 09/27/21 15:11 50 MG Vital Signs/I&O 09/27/21 09/27/21 13:53 15:31 Temp 36.8 Pulse 62 58 Resp 18 16 B/P (MAP) 134/77 (96) 109/87 Pulse Ox 96 94 O2 Delivery Room Air Capillary Refill : Less Than 3 Seconds Blood Pressure Mean: 96 Progress Note : Time: 16:45 Progress Note Patient's labs reviewed, everything is within normal limits. Chest x-ray is clear. Radiologist question small left basilar infiltrate however the patient is asymptomatic of this. Will not treat at this time. CT lumbar spine is unremarkable, hardware appears in place. Patient is concerned as he still has a significant amount of pain. He states that he took hydrocodone after his surgery last. I am going to send him over a prescription for some 5 mg to his pharmacy in [place] at [facility]. I have advised his caregiver/family member at the bedside to call Dr. Bhatt's office on Thursday, I will follow this with a call myself in order to schedule him an appointment for reevaluation. Patient is advised if he has numbness that is persistent in the right leg with weakness as well as pain he needs to come back to the emergency room. He has no groin anesthesia currently I am not concerned for acute cauda equina. He does not have urinary retention. He has intact dorsiflexion but weak strength in both legs. Intact sensation right now. He definitely has a right-sided radiculopathy, likely needs repeat MRI. Family member is comfortable with the plan of care. All questions are sought and answered. Patient states he also has follow-up in about a week to 2 weeks with Juliette Rock NP for injections in his hips. Patient is stable for discharge. Diagnostic Imaging Diagonstic Imaging: Xray Comments [facility]. [place], [place] NAME: ALEXANDREA MANN [facility] REC#: [id number] PT STATUS: REG ER : 1940 PHYSICIAN: COLETTE ROGERS MD ADMIT DATE: 09/27/21/ER Signed Date of Exam:09/27/21 CHEST 1 VIEW, AP/PA ONLY INDICATION: Chronic back pain. TIME OF EXAM: 3:05 p.m. COMPARISON: Correlation is made with prior chest 07/12/2019. FINDINGS: The heart appears enlarged but stable. There are changes of median sternotomy. There is some obscuration of the left hemidiaphragm suggestive of some left basilar infiltrate. Right lung is clear. No significant effusion or pneumothorax is seen. There are postop changes in the lower cervical spine. IMPRESSION: Findings suspicious for left basilar consolidation. Dictated by: Dictated on workstation # [id number] Dict: 09/27/21 1521 Trans: 09/27/21 1559 [id number] Interpreted by: NARGIS ADAME MD Electronically signed by: NARGIS ADAME MD 09/27/21 1556 [facility], [place] NAME: ALEXANDREA MANN [facility] REC#: [id number] PT STATUS: REG ER : 1940 PHYSICIAN: COLETTE ROGERS MD ADMIT DATE: 09/27/21/ER Signed Date of Exam:09/27/21 CT LUMBAR SPINE WO PROCEDURE: CT lumbar spine without contrast. TECHNIQUE: Multiple contiguous axial images were obtained through the lumbar spine without the use of intravenous contrast. Sagittal and coronal reformations were then performed. Auto Exposure Controls were utilized during the CT exam to meet ALARA standards for radiation dose reduction. INDICATION: Chronic back pain. No prior studies are available for comparison. Curvature of the lumbar spine is normal. There is minimal retrolisthesis of L2 on L3 and L1 on L2. Postsurgical changes at L2-L3 level noted. There is an intervertebral device at L2-L3. There are also right-sided pedicle screws at the L2 and L3 levels. Hardware appears to be intact without fracture or loosening. No definite acute fracture is seen. The paraspinous tissues are unremarkable. Aorta is calcified and ectatic but nonaneurysmal. IMPRESSION: A lumbar spondylosis and postsurgical changes. No acute abnormality is detected. Dictated by: Dictated on workstation # [id number] Dict: 09/27/21 1524 Trans: 09/27/21 1600 CVB [id number] Interpreted by: NRAGIS ADAME MD Electronically signed by: NARGIS ADAME MD 09/27/21 1600 Departure Impression Primary Impression: Lumbar back pain with radiculopathy affecting right lower extremity Disposition: 01 HOME, SELF-CARE Condition: Stable Departure-Patient Inst. Decision time for Depature: 16:47 Referrals: ADAM BHATT,LOCAL PHYSICIAN (PCP) Primary Care Physician Patient Instructions: Radiculopathy Add. Discharge Instructions: Take the hydrocodone, 1 tablet every 6 hours as needed for pain. A heating pad may also be beneficial to your low back. Necd-gsx-zziepnm lidocaine patches, follow the direction on the packaging may be pain relieving as well. Call Dr. Bhatt's office on Thursday for a follow-up appointment. I would indicate that he has increasing low back pain with increasing pain and weakness to the right leg with worsening incontinence or inability to control his urine. You might also mention that he is dragging his right foot when he walks with his walker which is a significant change from when he had surgery last. Come back to the emergency department for reevaluation if he has numbness to the leg, weakness/paralysis, numbness in his groin or any other emergent concerning symptoms. Scripts Hydrocodone/Acetaminophen (Hydrocodone-Acetamin 7.5-325) 1 Each Tablet 1 EACH PO Q6H PRN for PAIN-MODERATE (5-7), #20 TAB Prov: COLETTE ROGERS MD 09/27/21 COLETTE ROGERS MD Sep 27, 2021 14:39
--- NOTE | 2021-09-27 15:24 | Diagnostic Imaging Report ---
INDICATION: Chronic back pain. TIME OF EXAM: 3:05 p.m. COMPARISON: Correlation is made with prior chest 07/12/2019. FINDINGS: The heart appears enlarged but stable. There are changes of median sternotomy. There is some obscuration of the left hemidiaphragm suggestive of some left basilar infiltrate. Right lung is clear. No significant effusion or pneumothorax is seen. There are postop changes in the lower cervical spine. IMPRESSION: Findings suspicious for left basilar consolidation. Dictated by: Dictated on workstation # [id number]
--- NOTE | 2021-09-27 15:29 | Diagnostic Imaging Report ---
PROCEDURE: CT lumbar spine without contrast. TECHNIQUE: Multiple contiguous axial images were obtained through the lumbar spine without the use of intravenous contrast. Sagittal and coronal reformations were then performed. Auto Exposure Controls were utilized during the CT exam to meet ALARA standards for radiation dose reduction. INDICATION: Chronic back pain. No prior studies are available for comparison. Curvature of the lumbar spine is normal. There is minimal retrolisthesis of L2 on L3 and L1 on L2. Postsurgical changes at L2-L3 level noted. There is an intervertebral device at L2-L3. There are also right-sided pedicle screws at the L2 and L3 levels. Hardware appears to be intact without fracture or loosening. No definite acute fracture is seen. The paraspinous tissues are unremarkable. Aorta is calcified and ectatic but nonaneurysmal. IMPRESSION: A lumbar spondylosis and postsurgical changes. No acute abnormality is detected. Dictated by: Dictated on workstation # [id number]
[2021-09-27 15:41] LABS: BASOPHILS # (AUTO) 0.1 10^3/uL (0.0-0.1); BASOPHILS % (AUTO) 1 % (0-10); EOSINOPHILS # (AUTO) 0.2 10^3/uL (0.0-0.3); EOSINOPHILS % (AUTO) 3 % (0-10); HEMATOCRIT 39 % (40-54); HEMOGLOBIN 12.8 g/dL (13.3-17.7); LYMPHOCYTES # (AUTO) 1.3 X 10^3 (1.0-4.0); LYMPHOCYTES % (AUTO) 22 % (12-44); MEAN CORPUSCULAR HEMOGLOBIN 32 pg (25-34); MEAN CORPUSCULAR HGB CONC 33 g/dL (32-36); MEAN CORPUSCULAR VOLUME 98 fL (80-99); MEAN PLATELET VOLUME 9.3 fL (9.0-12.2); MONOCYTES # (AUTO) 0.6 X 10^3 (0.0-1.0); MONOCYTES % (AUTO) 9 % (0-12); NEUTROPHILS # (AUTO) 3.9 X 10^3 (1.8-7.8); NEUTROPHILS % (AUTO) 65 % (42-75); PLATELET COUNT 235 10^3/uL (130-400)
[2021-09-27 15:56] LABS: POTASSIUM 3.9 MMOL/L (3.6-5.0)
[2021-09-27 15:57] LABS: CALCIUM 9.4 MG/DL (8.5-10.1)
[2021-09-27 16:01] LABS: CREATININE SERUM 1.17 MG/DL (0.60-1.30)
[2021-09-27 16:14] LABS: BILIRUBIN,URINE NEGATIVE (NEGATIVE); CLARITY,URINE CLEAR; COLOR,URINE ORANGE; GLUCOSE, URINE (UA) NEGATIVE (NEGATIVE); KETONES,URINE NEGATIVE (NEGATIVE); LEUKOCYTE ESTERASE ,URINE NEGATIVE (NEGATIVE); NITRITE,URINE NEGATIVE (NEGATIVE); PROTEIN,URINE NEGATIVE (NEGATIVE)
[2021-09-27 16:23] LABS: BACTERIA,URINE NEGATIVE /HPF; SQUAMOUS EPITHELIAL CELL,UR 0-2 /HPF
[2021-09-27] MEDS ORDERED: HYDR-3817 PO (16:52)
[2021-09-27 16:58] VITALS: BP 109/67
== END 2021-09-27 16:59 | disposition home or self-care (01) ==
LOC: EDUNIT# 13:36 → ER 13:38
DX: M54.16 Radiculopathy, lumbar region (principal); J44.9 Chronic obstructive pulmonary disease, unspecified; I25.2 Old myocardial infarction; I10 Essential (primary) hypertension; F03.90 Unspecified dementia, unspecified severity, without behavioral disturbance, psychotic disturbance, mood disturbance, and anxiety; F32.9 Major depressive disorder, single episode, unspecified; G89.29 Other chronic pain; M54.9 Dorsalgia, unspecified; Z79.899 Other long term (current) drug therapy; Z79.01 Long term (current) use of anticoagulants; Z79.82 Long term (current) use of aspirin; Z79.891 Long term (current) use of opiate analgesic
CPT/HCPCS: 36415; 71045; 72131; 80048; 81000; 85025

== ENCOUNTER 2021-12-15 23:39 | Emergency (ER) | payer MEDICARE ==
[~2021-12-15 23:39] MED LIST changes: +HYDR-3817 PO
[2021-12-15 23:40] VITALS: BP 146/92
[2021-12-16 00:08] LABS: BASOPHILS # (AUTO) 0.1 10^3/uL (0.0-0.1); BASOPHILS % (AUTO) 1 % (0-10); EOSINOPHILS % (AUTO) 0 % (0-10); HEMATOCRIT 41 % (40-54); LYMPHOCYTES # (AUTO) 1.4 10^3/uL (1.0-4.0); LYMPHOCYTES % (AUTO) 19 % (12-44); MEAN CORPUSCULAR HEMOGLOBIN 33 pg (25-34); MEAN CORPUSCULAR HGB CONC 34 g/dL (32-36); MEAN CORPUSCULAR VOLUME 96 fL (80-99); MEAN PLATELET VOLUME 9.4 fL (9.0-12.2); MONOCYTES # (AUTO) 0.7 10^3/uL (0.0-1.0); MONOCYTES % (AUTO) 10 % (0-12); NEUTROPHILS # (AUTO) 4.9 10^3/uL (1.8-7.8); NEUTROPHILS % (AUTO) 68 % (42-75); PLATELET COUNT 246 10^3/uL (130-400); WHITE BLOOD COUNT 7.2 10^3/uL (4.3-11.0)
[2021-12-16 00:14] LABS: ALBUMIN 3.9 GM/DL (3.2-4.5); POTASSIUM 3.4 MMOL/L (3.6-5.0)
[2021-12-16 00:16] LABS: CALCIUM 8.8 MG/DL (8.5-10.1)
[2021-12-16 00:17] LABS: TOTAL PROTEIN 6.4 GM/DL (6.4-8.2)
[2021-12-16 00:18] LABS: PROTHROMBIN TIME PATIENT 13.3 SEC (12.2-14.7)
[2021-12-16 00:19] LABS: BILIRUBIN,TOTAL 0.4 MG/DL (0.1-1.0)
[2021-12-16 00:20] LABS: CREATININE SERUM 1.5 MG/DL (0.60-1.30)
--- NOTE | 2021-12-16 07:21 | Diagnostic Imaging Report ---
INDICATION: Fall. Pelvic and hip pain COMPARISON: None. FINDINGS: AP view of the pelvis and 2 dedicated radiographic views of each hip were obtained. There is no fracture, dislocation, bone destruction, or radiopaque foreign body. The visualized pelvic osseous structures and the SI joints demonstrate no acute fracture or dislocation. There is no bone destruction or radiopaque foreign body. The surrounding soft tissue structures are unremarkable. IMPRESSION: 1. No acute fracture or dislocation in the pelvis or either hip. Dictated by: Dictated on workstation # [id number]
--- NOTE | 2021-12-16 07:23 | Diagnostic Imaging Report ---
INDICATION: FALL pain. COMPARISON: 09/27/2021 FINDINGS: Single frontal view of the chest demonstrates normal heart size and pulmonary vascularity. The lungs are well aerated and clear. No large pleural effusion or pneumothorax is seen. The visualized osseous structures show no acute abnormalities. Sternotomy wires are noted. There is calcified aortic atherosclerosis. IMPRESSION: 1. No acute cardiopulmonary process. Dictated by: Dictated on workstation # [id number]
--- NOTE | 2021-12-16 07:44 | Diagnostic Imaging Report ---
PROCEDURE: CT head, face, and cervical spine without contrast. TECHNIQUE: Multiple contiguous axial images were obtained through the head, neck, and facial bones without the use of intravenous contrast. Sagittal and coronal reformations through the cervical spine and facial bones were also performed. Auto Exposure Controls were utilized during the CT exam to meet ALARA standards for radiation dose reduction. INDICATION: Fall. Injury. Pain. COMPARISON: None FINDINGS: CT head: The ventricles and cortical sulci are diffusely prominent, compatible with age-related volume loss. There are confluent areas of abnormal, low attenuation in the periventricular white matter. This is consistent with small vessel ischemic changes; age-indeterminate. There is no prior study available for comparison. There is no midline shift or mass-effect. No acute intra-axial hemorrhage is seen. There are no abnormal areas of increased or decreased density to suggest acute hemorrhage or edema. No extra-axial masses or collections are present. The bony calvarium is intact. CT FACIAL BONES: There is no acute fracture or dislocation of the facial bones. Nasal bones are intact. Nasal septum is intact and is midline. Paranasal sinuses show mild scattered mucosal thickening, but no acute fracture is seen. No abnormal air-fluid levels are identified. There is no fracture of the orbits. Globes are symmetric. No unexpected radiopaque foreign bodies are seen. Bilateral zygomatic arches are intact. Bilateral medial and lateral pterygoid plates are intact as well. There is no acute fracture or dislocation of the mandible. Remaining overlying soft tissue structures are unremarkable. Note is made of calcified carotid atherosclerosis, bilaterally. CT cervical spine: Patient is status post previous anterior fusion at C5-C6. Hardware appears well seated and appropriately positioned. There is no evidence of loosening or failure. Static alignment of the cervical spine is maintained. There is no significant anteroretrolisthesis. There is no evidence of jumped facets. Vertebral body heights are maintained. There is no acute fracture. No bony fragments are seen within the spinal canal. Moderate to advanced multilevel degenerative changes are noted and consist of intervertebral disc height loss with prominent anterior and posterior endplate osteophyte formations, as well as multilevel facet arthropathy. Pre and paravertebral soft tissue structures are unremarkable. Note is again made of calcified carotid atherosclerosis. Included portions of the lung apices show no additional acute abnormalities. IMPRESSION: 1. No acute intracranial abnormality. No CT evidence of mass, acute infarct or intracranial hemorrhage. 2. Small vessel ischemic changes in the periventricular and subcortical white matter; likely chronic. 3. No acute fracture or dislocation of the cervical spine. 4. Postsurgical changes of previous anterior fusion at C5-C6. No evidence of hardware loosening or failure. 5. No acute fracture or dislocation of the facial bones. Dictated by: Dictated on workstation # [id number]
== END 2021-12-16 01:28 | disposition home or self-care (01) ==
LOC: EDUNIT# 23:39 → ER 23:40
DX: S01.81XA Laceration without foreign body of other part of head, initial encounter (principal); W19.XXXA Unspecified fall, initial encounter
CPT/HCPCS: 36415; 70450; 70486; 71045; 72125; 73523; 80053; 85025; 85610; 85730; 93041

== ENCOUNTER 2022-04-09 15:30 | Observation (INO) | payer MEDICARE ==
[~2022-04-09] VITALS: Ht 170 cm; Wt 77.0 kg
[2022-04-09] MEDS ORDERED: NS IV 1000 ML 1,000 ML IV SCH (16:00)
[2022-04-09 16:13] LABS: BASOPHILS # (AUTO) 0.1 10^3/uL (0.0-0.1); BASOPHILS % (AUTO) 1 % (0-10); EOSINOPHILS # (AUTO) 0.1 10^3/uL (0.0-0.3); EOSINOPHILS % (AUTO) 2 % (0-10); HEMATOCRIT 37 % (40-54); HEMOGLOBIN 12.3 g/dL (13.3-17.7); LYMPHOCYTES # (AUTO) 1.2 10^3/uL (1.0-4.0); LYMPHOCYTES % (AUTO) 17 % (12-44); MEAN CORPUSCULAR HEMOGLOBIN 32 pg (25-34); MEAN CORPUSCULAR HGB CONC 33 g/dL (32-36); MEAN CORPUSCULAR VOLUME 95 fL (80-99); MEAN PLATELET VOLUME 9.3 fL (9.0-12.2); MONOCYTES # (AUTO) 0.7 10^3/uL (0.0-1.0); MONOCYTES % (AUTO) 10 % (0-12); NEUTROPHILS # (AUTO) 4.7 10^3/uL (1.8-7.8); NEUTROPHILS % (AUTO) 69 % (42-75); PLATELET COUNT 209 10^3/uL (130-400); WHITE BLOOD COUNT 6.8 10^3/uL (4.3-11.0)
[2022-04-09 16:33] LABS: ALBUMIN 3.9 GM/DL (3.2-4.5)
[2022-04-09 16:34] LABS: CALCIUM 8.9 MG/DL (8.5-10.1)
[2022-04-09 16:35] LABS: TOTAL PROTEIN 6.5 GM/DL (6.4-8.2)
[2022-04-09 16:37] LABS: BILIRUBIN,TOTAL 0.4 MG/DL (0.1-1.0)
[2022-04-09 16:39] LABS: CREATININE SERUM 2.01 MG/DL (0.60-1.30)
[2022-04-09 16:41] LABS: MAGNESIUM 2.3 MG/DL (1.6-2.4)
--- NOTE | 2022-04-09 16:50 | Diagnostic Imaging Report ---
EXAMINATION: CT head and CT cervical spine without contrast. TECHNIQUE: Multiple contiguous axial images were obtained through the brain and cervical spine without the use of intravenous contrast. Sagittal and coronal reformations through the cervical spine were then performed. All CT scans use one or more of the following dose optimizing techniques: automated exposure control, MA and/or KvP adjustment based on patient size and exam type or iterative reconstruction. HISTORY: Head and neck pain after injury. COMPARISON: 12/16/2021. FINDINGS: HEAD: Mild diffuse cerebral volume loss with proportional enlargement of the ventricles and sulci. No abnormal attenuation of brain parenchyma is present. No acute intracranial hemorrhage or abnormal extra-axial fluid collections are present. Calcification of the intracranial ICAs. No hyperdense vessel. The calvarium is intact. The mastoid air cells are clear. The visualized paranasal sinuses are clear. The orbits are normal. C-SPINE: Vertebral body height and alignment are preserved. No acute fracture, dislocation, or destructive osseous process. No significant facet hypertrophy. There is multilevel cervical spondylosis. Surgical changes from C5-C6 spinal fusion. The paraspinous soft tissues are normal. The visualized thyroid gland is normal. The visualized lung apices are normal. IMPRESSION: 1. No acute intracranial abnormality. Mild volume loss. 2. Degenerative changes of the cervical spine without acute osseous abnormality. Dictated by: Dictated on workstation # [id number]
--- NOTE | 2022-04-09 16:53 | Diagnostic Imaging Report ---
EXAMINATION: CT lumbar spine without contrast. TECHNIQUE: Multiple contiguous axial images were obtained through the lumbar spine without the use of intravenous contrast. Sagittal and coronal reformations were then performed. All CT scans use one or more of the following dose optimizing techniques: Automated exposure control, MA and/or KvP adjustment based on patient size and exam type or iterative reconstruction. HISTORY: Back pain after fall. COMPARISON: 09/27/2021. FINDINGS: Surgical and degenerative changes of the spine. Vertebral body heights and alignment are normal. No acute fracture. There is multilevel facet hypertrophy. Disc height loss at L1-L2. There is multilevel lumbar spondylosis. Limited views of the abdomen and pelvis show no soft tissue abnormality. Vascular calcifications of the aorta. IMPRESSION: 1. Degenerative changes of the lumbar spine without acute osseous abnormality. Dictated by: Dictated on workstation # [id number]
--- NOTE | 2022-04-09 16:54 | Diagnostic Imaging Report ---
PROCEDURE: CT pelvis without contrast. TECHNIQUE: Multiple contiguous axial images were obtained through the pelvis without the use of intravenous contrast. Sagittal and coronal reformations were performed. Auto Exposure Controls were utilized during the CT exam to meet ALARA standards for radiation dose reduction. INDICATION: Fall. Pelvic pain. COMPARISON: 12/16/2021. FINDINGS: No acute fracture or dislocation is seen in the pelvis and bilateral hips. Alignment is anatomic. No suspicious focal osseous lesions are seen. The included pelvis demonstrates no acute abnormalities. A moderate fat-containing left inguinal hernia is seen. IMPRESSION: No acute fracture or dislocation in the pelvis and bilateral hips. Dictated by: Dictated on workstation # [id number]
[2022-04-09] MEDS ORDERED: LACTATED RINGERS 1,000 ML IV ONE ×2 (17:30→20:15)
[2022-04-09 18:04] LABS: BILIRUBIN,URINE NEGATIVE (NEGATIVE); CLARITY,URINE CLEAR; COLOR,URINE YELLOW; GLUCOSE, URINE (UA) NEGATIVE (NEGATIVE); KETONES,URINE NEGATIVE (NEGATIVE); LEUKOCYTE ESTERASE ,URINE NEGATIVE (NEGATIVE); NITRITE,URINE NEGATIVE (NEGATIVE); PH,URINE 5.5 (5-9); PROTEIN,URINE NEGATIVE (NEGATIVE)
[2022-04-09 18:17] LABS: BACTERIA,URINE FEW /HPF; HYALINE CASTS, URINE 25-50 /LPF; WBC,URINE 0-2 /HPF
--- NOTE | 2022-04-09 18:27 | ED Fall/Injury ---
General Chief Complaint: Trauma-Non Activation Stated Complaint: FELL AND HIT HEAD AND R SIDE Nursing Triage Note: dropped off by [facility] staff in waiting room. patient states he fell and hit the back of his head and he feels the nursing staff is over reacting by sending him here. states he is unsure if he lost conciousness or if he is on blood thinners. Source: patient, skilled nursing records Exam Limitations: other (Dementia) History of Present Illness Date Seen by Provider: Apr 09, 2022 Time Seen by Provider: 15:59 Initial Comments This 81-year-old gentleman who is a resident of [facility] who had a fall, likely striking his head on a table. There was no loss of consciousness. Staff reports that he has been increasingly weak recently. He reports some backache. Location Injury Occurred: [facility] Allergies and Home Medications Allergies Coded Allergies: codeine (Verified Adverse Reaction, Severe, VOMITING, has rec Lortab in the past, 04/10/22) Uncoded Allergies: TAPE (Allergy, Severe, BLISTERS, 07/12/19) Patient Home Medication List Home Medication List Reviewed: Yes Aspirin (Aspirin EC) 81 Mg Tablet.dr, 81 MG PO DAILY, (Reported) Entered as Reported by: SHIVA RYDER on 07/13/19 1005 Last Action: Reviewed Carvedilol (Carvedilol) 25 Mg Tablet, 12.5 MG PO BID, (Reported) Entered as Reported by: LUIS MURRAY on 04/10/22 0824 Last Action: Converted Clopidogrel Bisulfate (Plavix) 75 Mg Tablet, 75 MG PO DAILY, (Reported) Entered as Reported by: SHIVA RYDER on 07/13/19 1005 Last Action: Reviewed Diclofenac Sodium (Diclofenac Sodium) 1 % Gel..gram., 1 APPLIC TP Q6H PRN for JOINT PAIN, (Reported) Entered as Reported by: LUIS MURRAY on 04/10/22 0824 Last Action: Continued Donepezil HCl (Donepezil HCl) 10 Mg Tablet, 10 MG PO HS, (Reported) Entered as Reported by: SHIVA RYDER on 07/13/19 1433 Last Action: Continued Duloxetine HCl (Duloxetine HCl) 30 Mg Capsule.dr, 90 MG PO DAILY, (Reported) Entered as Reported by: LUIS MURRAY on 04/10/22823 Last Action: Continued Escitalopram Oxalate (Escitalopram Oxalate) 5 Mg Tablet, 5 MG PO DAILY, (Reported) Entered as Reported by: LUIS MURRAY on 04/10/22823 Last Action: Converted Famotidine (Acid Shake Out Worker (FAMOTIDINE)) 20 Mg Tablet, 20 MG PO DAILY, (Reported) Entered as Reported by: LUIS MURRAY on 04/10/22823 Last Action: Continued Gabapentin (Neurontin) 300 Mg Capsule, 300 MG PO Q12H, (Reported) Entered as Reported by: LUIS MURRAY on 04/10/22823 Last Action: Continued Hydrocodone/Acetaminophen (Hydrocodone-Acetamin 5-325 mg) 5 Mg-325 Mg Tablet, 1 TAB PO BID, (Reported) Entered as Reported by: LUIS MURRAY on 04/10/22823 Last Action: Held Hydrocodone/Acetaminophen (Hydrocodone-Acetamin 5-325 mg) 5 Mg-325 Mg Tablet, 1 TAB PO Q4H PRN for PAIN-MODERATE (5-7), (Reported) Entered as Reported by: LUIS MURRAY on 04/10/22823 Last Action: Continued Losartan/Hydrochlorothiazide (Losartan-Hctz 50-12.5 mg Tab) 50 Mg-12.5 Mg Tablet, 1 EACH PO DAILY, (Reported) Entered as Reported by: LUIS MURRAY on 04/10/22823 Last Action: Converted Mirabegron (Myrbetriq) 50 Mg Tab.er.24h, 50 MG PO DAILY, (Reported) Entered as Reported by: LUIS MURRAY on 04/10/22823 Last Action: Converted Naproxen (Naprosyn) 500 Mg Tablet, 500 MG PO Q8H PRN for PAIN-MILD (1-4), (Reported) Entered as Reported by: LUIS MURRAY on 04/10/22823 Last Action: Held Nitroglycerin (Nitroglycerin) 0.4 Mg Tab.subl, 0.4 MG SL UD PRN for CHEST PAIN, (Reported) Entered as Reported by: LUIS MURRAY on 04/10/22823 Last Action: Reviewed Pantoprazole Sodium (Pantoprazole Sodium) 40 Mg Tablet.dr, 40 MG PO DAILY, (Reported) Entered as Reported by: LUIS MURRAY on 04/10/22823 Last Action: Continued Ranolazine (Ranexa) 500 Mg Tab.er.12h, 500 MG PO Q12H, (Reported) Entered as Reported by: LUIS MURRAY on 04/10/22823 Last Action: Continued Rosuvastatin Calcium (Rosuvastatin Calcium) 10 Mg Tablet, 5 MG PO HS, (Reported) Entered as Reported by: LUIS MURRAY on 04/10/22823 Last Action: Continued Terazosin HCl (Terazosin HCl) 5 Mg Capsule, 5 MG PO HS, (Reported) Entered as Reported by: LUIS MURRAY on 04/10/22823 Last Action: Continued Zinc Oxide (Zinc Oxide) 22 % Cream..g., 1 APPLIC TP Q4H PRN for GAULDING/REDNESS, (Reported) Entered as Reported by: LUIS MURRAY on 04/10/22823 Last Action: Held Discontinued Medications Acetaminophen (Tylenol Arthritis) 650 Mg Tablet.er, 1,300 MG PO BID, (Reported) Discontinued Reason: No Longer Taking Entered as Reported by: SHIVA RYDER on 07/13/191004 Last Action: Discontinued Bacitracin (Bacitracin) 28.4 Gm Oint...g., 0 GM TOP BID Discontinued Reason: No Longer Taking Prescribed by: YANETH REEDER on 08/31/19841 Last Action: Discontinued Cetirizine HCl (Cetirizine HCl) 10 Mg Tablet, 10 MG PO DAILY, (Reported) Discontinued Reason: No Longer Taking Entered as Reported by: SHIVA RYDER on 07/13/191004 Last Action: Discontinued Cyclobenzaprine HCl (Cyclobenzaprine HCl) 10 Mg Tablet, 10 MG PO TID PRN for SPASMS Discontinued Reason: No Longer Taking Prescribed by: YANETH REEDER on 08/31/19841 Last Action: Discontinued Docusate Calcium (Docusate Calcium) 240 Mg Capsule, 240 MG PO BID, (Reported) Discontinued Reason: No Longer Taking Entered as Reported by: SHIVA RYDER on 07/13/191004 Last Action: Discontinued Duloxetine HCl (Cymbalta) 30 Mg Capsule.dr, 30 MG PO DAILY Discontinued Reason: No Longer Taking Prescribed by: YANETH REEDER on 08/31/19841 Last Action: Discontinued Hydrocodone/Acetaminophen (Hydrocodone-Acetamin 7.5-325) 1 Each Tablet, 1 EACH PO Q6H PRN for PAIN-MODERATE (5-7) Discontinued Reason: No Longer Taking Prescribed by: COLETTE ROGERS on 09/27/21 5713 Last Action: Discontinued Hydroxyzine HCl (Hydroxyzine HCl) 10 Mg Tablet, 10 MG PO TID PRN for anxiety Discontinued Reason: No Longer Taking Prescribed by: YANETH REEDER on 08/31/19841 Last Action: Discontinued Magnesium Oxide (Magnesium Oxide) 420 Mg Tablet, 420 MG PO DAILY, (Reported) Discontinued Reason: No Longer Taking Entered as Reported by: SHIVA RYDER on 07/13/191004 Last Action: Discontinued Naproxen (Naproxen) 500 Mg Tablet, 500 MG PO BID, (Reported) Discontinued Reason: No Longer Taking Entered as Reported by: SHIVA RYDER on 07/13/191004 Last Action: Discontinued Oxycodone Hcl (Oxycodone IR) 5 Mg Tab, 10 MG PO Q4H PRN for PAIN-SEVERE Discontinued Reason: No Longer Taking Prescribed by: YANETH REEDER on 08/31/19841 Last Action: Discontinued Pantoprazole Sodium (Protonix) 40 Mg Tablet.dr, 40 MG PO DAILY, (Reported) Discontinued Reason: No Longer Taking Entered as Reported by: SHIVA RYDER on 07/13/191004 Last Action: Discontinued Ranitidine HCl (Zantac) 150 Mg Tablet, 150 MG PO BID, (Reported) Discontinued Reason: No Longer Taking Entered as Reported by: SHIVA RYDER on 07/13/191004 Last Action: Discontinued Simethicone (Gas-X) 125 Mg Tab.chew, 125 MG PO BID, (Reported) Discontinued Reason: No Longer Taking Entered as Reported by: SHIVA RYDER on 07/13/191004 Last Action: Discontinued Terazosin HCl (Terazosin HCl) 5 Mg Capsule, 5 MG PO HS, (Reported) Discontinued Reason: No Longer Taking Entered as Reported by: SHIVA RYDER on 07/13/191004 Last Action: Discontinued Tolterodine Tartrate (Detrol LA) 4 Mg Cap, 4 MG PO DAILY, (Reported) Discontinued Reason: No Longer Taking Entered as Reported by: SHIVA K ALEKSEY on 07/13/19 1005 Last Action: Discontinued Review of Systems Review of Systems Constitutional: see HPI Eyes: No Symptoms Reported Ears, Nose, Mouth, Throat: no symptoms reported Respiratory: no symptoms reported Cardiovascular: no symptoms reported Gastrointestinal: no symptoms reported Genitourinary: no symptoms reported Musculoskeletal: see HPI Skin: no symptoms reported Psychiatric/Neurological: No Symptoms Reported Past Ookcwwm-Zmeoej-Dzzxur Hx Patient Social History Tobacco Use?: No Smoking Status: Former Smoker Use of E-Cig and/or Vaping dev: No Substance use?: No Alcohol Use?: No Pt feels they are or have been: No Immunizations Up To Date Influenza Vaccine Up-to-Date: Yes; Up-to-Date First/Initial COVID19 Vaccinat: 12/01 Second COVID19 Vaccination [place]: 12/29 COVID19 Vaccine Dairy Technician: nidia Seasonal Allergies Seasonal Allergies: No Past Medical History Surgeries: Yes Appendectomy, CABG, Coronary Stent, Gallbladder, Orthopedic Respiratory: Yes COPD Currently Using CPAP: No Currently Using BIPAP: No Cardiac: Yes (3 VESSEL CABG; CARDIAC CATHS WITH STENTS X 6; STERNAL PLATING WITH REVISION) Coronary Artery Disease, Heart Attack, High Cholesterol, Hypertension Neurological: Yes Dementia Genitourinary: Yes (INCONTINENCE) Gastrointestinal: Yes Chronic Constipation Musculoskeletal: Yes (CHRONIC NECK AND BACK PAIN--S/P CERVICAL AND LUMBAR SPINE SURGERY) Degenerate Disk Disease, Arthritis, Chronic Back Pain Endocrine: Yes (HYPOGLYCEMIA ) HEENT: Yes ("CAN'T SEE WELL - I DON'T KNOW WHY") Hearing Impairment: Hard of Hearing, Bilateral Hearing Aide Cancer: No Psychosocial: Yes Depression Integumentary: No Blood Disorders: No Family Medical History Patient reports no known family medical history. PAST SURGICAL HISTORY: -LEFT TOTAL KNEE REPLACEMENT X [address] COLLIER -RIGHT TOTAL KNEE REPLACEMENT X [address] COLLIER -CERVICAL SPINE SURGERY/FUSION -LUMBAR SPINE SURGERY 07/2019--DR. HDEZ -CARDIAC CATH WITH STENTS X 6 -3 VESSEL CABG -PLATING OF STERNUM FOR NON-UNION -APPENDECTOMY -CHOLECYSTECTOMY -? HERNIA REPAIR ?? Physical Exam Vital Signs Vital Signs - First Documented 04/09/22 16:05 Temp 36.6 Pulse 59 Resp 18 B/P (MAP) 100/55 (70) Pulse Ox 97 O2 Delivery Room Air Capillary Refill : Less Than 3 Seconds Height, Weight, BMI Height: '" Weight: lbs. oz. kg; 26.00 BMI Method: General Appearance: WD/WN, no apparent distress HEENT: normal ENT inspection Neck: non-tender, normal inspection Cardiovascular: regular rate, rhythm, no edema, no murmur Respiratory: lungs clear, normal breath sounds, no respiratory distress Gastrointestinal: non tender, soft Back: normal inspection, vertebral tenderness (Tenderness around the lower lumbar spine and sacral region) Extremities: non-tender, other (No pain with range of motion) Neurologic/Psychiatric: no motor/sensory deficits, alert, normal mood/affect Skin: normal color, warm/dry Jada Coma Score Best Eye Response: (4) Open Spontaneously Best Verbal Response: (5) Oriented Best Motor Response: (6) Obeys Commands [place] Total: 15 Progress/Results/Core Measures Results/Orders Lab Results Laboratory Tests Test 04/09/22 16:05 04/09/22 17:50 Range/Units White Blood Count 6.8 4.3-11.0 10^3/uL Red Blood Count 3.90 L 4.30-5.52 10^6/uL Hemoglobin 12.3 L 13.3-17.7 g/dL Hematocrit 37 L 40-54 % Mean Corpuscular Volume 95 80-99 fL Mean Corpuscular Hemoglobin 32 25-34 pg Mean Corpuscular Hemoglobin Concent 33 32-36 g/dL Red Cell Distribution Width 12.6 10.0-14.5 % Platelet Count 209 130-400 10^3/uL Mean Platelet Volume 9.3 9.0-12.2 fL Immature Granulocyte % (Auto) 0 % Neutrophils (%) (Auto) 69 42-75 % Lymphocytes (%) (Auto) 17 12-44 % Monocytes (%) (Auto) 10 0-12 % Eosinophils (%) (Auto) 2 0-10 % Basophils (%) (Auto) 1 0-10 % Neutrophils # (Auto) 4.7 1.8-7.8 10^3/uL Lymphocytes # (Auto) 1.2 1.0-4.0 10^3/uL Monocytes # (Auto) 0.7 0.0-1.0 10^3/uL Eosinophils # (Auto) 0.1 0.0-0.3 10^3/uL Basophils # (Auto) 0.1 0.0-0.1 10^3/uL Immature Granulocyte # (Auto) 0.0 0.0-0.1 10^3/uL Sodium Level 140 135-145 MMOL/L Potassium Level 4.0 3.6-5.0 MMOL/L Chloride Level 106 98-107 MMOL/L Carbon Dioxide Level 24 21-32 MMOL/L Anion Gap 10 5-14 MMOL/L Blood Urea Nitrogen 36 H 7-18 MG/DL Creatinine 2.01 H 0.60-1.30 MG/DL Estimat Glomerular Filtration Rate 33 BUN/Creatinine Ratio 18 Glucose Level 90 70-105 MG/DL Calcium Level 8.9 8.5-10.1 MG/DL Corrected Calcium 9.0 8.5-10.1 MG/DL Magnesium Level 2.3 1.6-2.4 MG/DL Total Bilirubin 0.4 0.1-1.0 MG/DL Aspartate Amino Transf (AST/SGOT) 16 5-34 U/L Alanine Aminotransferase (ALT/SGPT) 17 0-55 U/L Alkaline Phosphatase 60 40-136 U/L Total Protein 6.5 6.4-8.2 GM/DL Albumin 3.9 3.2-4.5 GM/DL Urine Color YELLOW Urine Clarity CLEAR Urine pH 5.5 5-9 Urine Specific [place] >=1.030 1.016-1.022 Urine Protein NEGATIVE NEGATIVE Urine Glucose (UA) NEGATIVE NEGATIVE Urine Ketones NEGATIVE NEGATIVE Urine Nitrite NEGATIVE NEGATIVE Urine Bilirubin NEGATIVE NEGATIVE Urine Urobilinogen 1.0 < = 1.0 MG/DL Urine Leukocyte Esterase NEGATIVE NEGATIVE Urine RBC (Auto) NEGATIVE NEGATIVE Urine RBC NONE /HPF Urine WBC 0-2 /HPF Urine Squamous Epithelial Cells 2-5 /HPF Urine Crystals NONE /LPF Urine Bacteria FEW H /HPF Urine Casts PRESENT /LPF Urine Hyaline Casts 25-50 H /LPF Urine Mucus SMALL H /LPF Urine Culture Indicated YES Micro Results Microbiology 04/09/22 Urine Culture - Final, Complete NO GROWTH My Orders Orders - PAULA ALEJANDRO MD Cbc With Automated Diff (04/09/22 15:59) Comprehensive Metabolic Panel (04/09/22 15:59) Magnesium (04/09/22 15:59) Ua Culture If Indicated (04/09/22 15:59) Ct Head/Cervical Spine Wo (04/09/22 15:59) Ed Iv/Invasive Line Start (04/09/22 15:59) Ns Iv 1000 Ml (Sodium Chloride 0.9%) (04/09/22 16:00) Ct Lumbar Spine Wo (04/09/22 16:28) Ct Pelvis Wo (04/09/22 16:28) Lactated Ringers (Lr 1000 Ml Iv Solution (04/09/22 17:30) Urine Culture (04/09/22 17:50) Medications Given in ED Vital Signs/I&O 04/09/22 16:05 Temp 36.6 Pulse 59 Resp 18 B/P (MAP) 100/55 (70) Pulse Ox 97 O2 Delivery Room Air Blood Pressure Mean: 70 Progress Progress Note : Time: 18:37 Progress Note Patient received 2 L of IV fluids as his creatinine was elevated and he had n ormal but lower blood pressures. He was still rather weak after receiving the IV fluids to the extent nursing staff did not feel comfortable with him returning back to assisted living. He required full assist for pivot and transfer. Normally he is able to rise independently and use a walker independently according to assisted living staff. Patient is being admitted for observation and continued hydration through the night. Heart rate was also borderline and sometimes dropped into the 40s. We will hold his Coreg which will perhaps improve his heart rate and strength. If symptoms do not improve, he may not be safe to return to assisted living and may need to be evaluated for other living arrangements. Diagnostic Imaging Diagonstic Imaging: CT Plain Films/CT/US/NM/MRI: c-spine, head Comments NAME: ALEXANDREA MANN [facility] REC#: [id number] PT STATUS: REG ER : 1940 PHYSICIAN: PAULA ALEJANDRO MD ADMIT DATE: 04/09/22/ER Signed Date of Exam:04/09/22 CT HEAD/CERVICAL SPINE WO EXAMINATION: CT head and CT cervical spine without contrast. TECHNIQUE: Multiple contiguous axial images were obtained through the brain and cervical spine without the use of intravenous contrast. Sagittal and coronal reformations through the cervical spine were then performed. All CT scans use one or more of the following dose optimizing techniques: automated exposure control, MA and/or KvP adjustment based on patient size and exam type or iterative reconstruction. HISTORY: Head and neck pain after injury. COMPARISON: 12/16/2021. FINDINGS: HEAD: Mild diffuse cerebral volume loss with proportional enlargement of the ventricles and sulci. No abnormal attenuation of brain parenchyma is present. No acute intracranial hemorrhage or abnormal extra-axial fluid collections are present. Calcification of the intracranial ICAs. No hyperdense vessel. The calvarium is intact. The mastoid air cells are clear. The visualized paranasal sinuses are clear. The orbits are normal. C-SPINE: Vertebral body height and alignment are preserved. No acute fracture, dislocation, or destructive osseous process. No significant facet hypertrophy. There is multilevel cervical spondylosis. Surgical changes from C5-C6 spinal fusion. The paraspinous soft tissues are normal. The visualized thyroid gland is normal. The visualized lung apices are normal. IMPRESSION: 1. No acute intracranial abnormality. Mild volume loss. 2. Degenerative changes of the cervical spine without acute osseous abnormality. Dictated by: Dictated on workstation # [id number] Dict: 04/09/22 1644 Trans: 04/09/22 1719 AS6 [id number] Interpreted by: ANGELICA WALKER DO Electronically signed by: ANGELICA WALKER DO 04/09/22 1719 Diagonstic Imaging: CT Plain Films/CT/US/NM/MRI: other (Lumbar spine) Comments NAME: ALEXANDREA MANN [facility] REC#: [id number] PT STATUS: REG ER : 1940 PHYSICIAN: PAULA ALEJANDRO MD ADMIT DATE: 04/09/22/ER Signed Date of Exam:04/09/22 CT LUMBAR SPINE WO EXAMINATION: CT lumbar spine without contrast. TECHNIQUE: Multiple contiguous axial images were obtained through the lumbar spine without the use of intravenous contrast. Sagittal and coronal reformations were then performed. All CT scans use one or more of the following dose optimizing techniques: Automated exposure control, MA and/or KvP adjustment based on patient size and exam type or iterative reconstruction. HISTORY: Back pain after fall. COMPARISON: 09/27/2021. FINDINGS: Surgical and degenerative changes of the spine. Vertebral body heights and alignment are normal. No acute fracture. There is multilevel facet hypertrophy. Disc height loss at L1-L2. There is multilevel lumbar spondylosis. Limited views of the abdomen and pelvis show no soft tissue abnormality. Vascular calcifications of the aorta. IMPRESSION: 1. Degenerative changes of the lumbar spine without acute osseous abnormality. Dictated by: Dictated on workstation # [id number] Dict: 04/09/221646 Trans: 04/09/221718 [id number] Interpreted by: ANGELICA WALKER DO Electronically signed by: ANGELICA WALKER DO 04/09/22 1719 Diagonstic Imaging: CT Plain Films/CT/US/NM/MRI: pelvis Comments NAME: ALEXANDREA MANN [facility] REC#: [id number] PT STATUS: REG ER : 1940 PHYSICIAN: PAULA ALEJANDRO MD ADMIT DATE: 04/09/22/ER Signed Date of Exam:04/09/22 CT PELVIS WO PROCEDURE: CT pelvis without contrast. TECHNIQUE: Multiple contiguous axial images were obtained through the pelvis without the use of intravenous contrast. Sagittal and coronal reformations were performed. Auto Exposure Controls were utilized during the CT exam to meet ALARA standards for radiation dose reduction. INDICATION: Fall. Pelvic pain. COMPARISON: 12/16/2021. FINDINGS: No acute fracture or dislocation is seen in the pelvis and bilateral hips. Alignment is anatomic. No suspicious focal osseous lesions are seen. The included pelvis demonstrates no acute abnormalities. A moderate fat-containing left inguinal hernia is seen. IMPRESSION: No acute fracture or dislocation in the pelvis and bilateral hips. Dictated by: Dictated on workstation # [id number] Dict: 04/09/221649 Trans: 04/09/221656 AS [id number] Interpreted by: JOSTIN MARC DO Electronically signed by: JOSTIN MARC DO 04/09/221656 Departure Communication (Admissions) Time/Spoke to Admitting Phy: 18:30 Dr. Ruvalcaba Impression Primary Impression: Fall on same level Qualified Codes: W18.30XA - Fall on same level, unspecified, initial encounter Additional Impressions: Acute kidney injury Hypovolemia Generalized weakness Disposition: HOME, SELF-CARE Condition: Improved Admissions Decision to Admit Reason: Admit from ER (General) Decision to Admit/Date: Apr 09, 2022 Time/Decision to Admit Time: 18:30 Departure-Patient Inst. Decision time for Depature: 18:22 Referrals: NO,LOCAL PHYSICIAN (PCP/Family) Primary Care Physician Add. Discharge Instructions: All discharge instructions reviewed with patient and/or family. Voiced understanding. PAULA ALEJANDRO MD Apr 09, 2022 18:26
[2022-04-09 20:00] VITALS: BP 175/67
[2022-04-09 20:20] VITALS: BP 155/65
[2022-04-09] MEDS: LACTATED RINGERS 1,000 ML IV SCH (20:20)
[2022-04-09] MEDS ORDERED: ACETAMINOPHEN 500 MG TAB (TYLENOL) PO PRN (22:00)
[2022-04-09 23:38] VITALS: BP 136/62
[2022-04-10 03:49] VITALS: BP_SYST 176; BP_SYST 181; BP_DIAS 77; BP_DIAS 79
[2022-04-10] MEDS: LACTATED RINGERS 1,000 ML IV SCH (06:17)
[2022-04-10 06:36] LABS: POTASSIUM 4.1 MMOL/L (3.6-5.0)
[2022-04-10 06:38] LABS: CALCIUM 8.6 MG/DL (8.5-10.1)
[2022-04-10 06:42] LABS: CREATININE SERUM 1.54 MG/DL (0.60-1.30)
[2022-04-10 08:09] VITALS: BP 185/81
[2022-04-10] MEDS ORDERED: NAPR-1071 PO (08:24)
[2022-04-10] MEDS ORDERED: DICL100G13 TP (08:24)
[2022-04-10] MEDS ORDERED: GABA300C PO (08:24)
[2022-04-10] MEDS ORDERED: CARV25TA PO (08:24)
[2022-04-10] MEDS ORDERED: NITR0.4T39 SL (08:24)
[2022-04-10] MEDS ORDERED: DULO30CA49 PO (08:24)
[2022-04-10] MEDS ORDERED: TERA5CAP10 PO (08:24)
[2022-04-10] MEDS ORDERED: MIRA50TA PO (08:24)
[2022-04-10] MEDS ORDERED: ROSU10TA28 PO (08:24)
[2022-04-10] MEDS ORDERED: [UNRECOGNIZED DRUG - CODE] TP (08:24)
[2022-04-10] MEDS ORDERED: PANT40TA52 PO (08:24)
[2022-04-10] MEDS ORDERED: ESCI5TAB16 PO (08:24)
[2022-04-10] MEDS ORDERED: RANO500T3 PO (08:24)
[2022-04-10] MEDS ORDERED: FAMO20TA3 PO (08:24)
[2022-04-10] MEDS ORDERED: ACHD5005 PO ×2 (08:24)
[2022-04-10] MEDS ORDERED: LOSA1TAB20 PO (08:24)
[2022-04-10] MEDS ORDERED: DICLOFENAC 1% GEL 100 GM (VOLTAREN) TUBE TP PRN (08:45)
[2022-04-10] MEDS ORDERED: HYDROcodone/APAP 5 MG/325 MG (LORTAB) TAB PO PRN (08:45)
[2022-04-10] MEDS ORDERED: MIRABEGRON 25 MG TAB (MYRBETRIQ) PO SCH (08:48)
[2022-04-10] MEDS ORDERED: RANOLAZINE ER 500 MG TAB (RANEXA) PO SCH (09:00)
[2022-04-10] MEDS ORDERED: FAMOTIDINE 20 MG (PEPCID) TABLET PO SCH (09:00)
[2022-04-10] MEDS ORDERED: DULoxetine 30 MG (CYMBALTA) CAP PO SCH (09:00)
[2022-04-10] MEDS ORDERED: LOSARTAN 50 MG (COZAAR) TAB PO SCH (09:00)
[2022-04-10] MEDS ORDERED: GABAPENTIN 300 MG (NEURONTIN) CAP PO SCH (09:00)
[2022-04-10] MEDS ORDERED: CLOPIDOGREL 75 MG (PLAVIX) TABLET PO SCH (09:00)
[2022-04-10] MEDS ORDERED: PANTOPRAZOLE 40 MG (PROTONIX) TAB PO SCH (09:00)
--- NOTE | 2022-04-10 11:35 | Short Stay Summary-Hospitalist ---
History of Present Illness HPI/Chief Complaint Patient is 81-year-old male past medical history of dementia, hypertension, coronary artery disease status post CABG, hyperlipidemia, chronic pain who presented to the emergency department after a fall. He lives at [facility] in the assisted living and suffered a fall yesterday prompting evaluation in the ER. He states he is fine and is uncertain why they sent him in as he felt it was unnecessary. He was evaluated for traumatic injuries and imaging was negative. He was found to have an elevated creatinine and a deviation from his baseline mobility so was admitted for observation and IV fluids. He reports feeling near his baseline today and states he is already been up to the bathroom and ambulated with just an IV pole. He is requesting discharge home back to his assisted living. Source: patient Date Seen 04/10/22 Time Seen by a Provider: 11:30 Attending Physician No,Local Physician PCP Admitting Physician: Kizzy Ruvalcaba MD Attending Physician: Kizzy Ruvalcaba MD Referring Physician Date of Admission Apr 09, 2022 at 18:34 Home Medications & Allergies Home Medications Reviewed patient Home Medication Reconciliation performed by pharmacy medication reconciliations agricultural engineering technician and/or nursing. Patients Allergies have been reviewed. Allergies Allergies Coded Allergies codeine (Verified Adverse Reaction, Severe, VOMITING, has rec Lortab in the past, 04/10/22) Uncoded Allergies TAPE ( Allergy, Severe, BLISTERS, 07/12/19) Past Sgzillu-Gaoudk-Hkbxlp Hx Patient Social History Employed/Student: retired Tobacco Use?: Yes Smoking Status: Former Smoker Use of E-Cig and/or Vaping dev: No Substance use?: No Alcohol Use?: No Additional Alcohol Comments: USED TO DRINK WHISKEY Pt feels they are or have been: No Immunizations Up To Date First/Initial COVID19 Vaccinat: 12/01 Second COVID19 Vaccination [place]son: 12/29 Tetanus Booster (TDap): More Than 5 Years Date of Pneumonia Vaccine: Jul 26, 2016 Seasonal Allergies Seasonal Allergies: No Current Status Advance Directives: No Communicates: Verbally Primary Language: Mosotho Preferred Spoken Language: Mosotho Is interpretation needed?: No Sensory deficits: Hearing impairment Implanted or Applied Medical D: Orthopedic hardware, Stents Past Medical History Surgeries: Appendectomy, CABG, Coronary Stent, Gallbladder, Orthopedic COPD Currently Using CPAP: No Currently Using BIPAP: No Coronary Artery Disease, Heart Attack, High Cholesterol, Hypertension Dementia Chronic Constipation Degenerate Disk Disease, Arthritis, Chronic Back Pain Hearing Impairment: Hard of Hearing, Bilateral Hearing Aide Depression Blood Disorders: No Family Medical History Reviewed Nursing Family Hx Patient reports no known family medical history. No Pertinent Family Hx PAST SURGICAL HISTORY: -LEFT TOTAL KNEE REPLACEMENT X [address] COLLIER -RIGHT TOTAL KNEE REPLACEMENT X [address] COLLIER -CERVICAL SPINE SURGERY/FUSION -LUMBAR SPINE SURGERY 07/2019--DR. HDEZ -CARDIAC CATH WITH STENTS X 6 -3 VESSEL CABG -PLATING OF STERNUM FOR NON-UNION -APPENDECTOMY -CHOLECYSTECTOMY -? HERNIA REPAIR ?? Review of Systems Constitutional: No chills, No fever EENTM: no symptoms reported Respiratory: No cough, No short of breath Cardiovascular: No chest pain, No palpitations Gastrointestinal: No abdominal pain Genitourinary: No decreased output, No dysuria, No frequency; hesitancy (chronic) Musculoskeletal: back pain Skin: no symptoms reported Psychiatric/Neurological: No Symptoms Reported Physical Exam Physical Exam Vital Signs Vital Signs - First Documented 04/09/22 16:05 Temp 36.6 Pulse 59 Resp 18 B/P (MAP) 100/55 (70) Pulse Ox 97 O2 Delivery Room Air Capillary Refill : Less Than 3 Seconds Height, Weight, BMI Height: '" Weight: lbs. oz. kg; 26.92 BMI Method: General Appearance: No Apparent Distress, WD/WN HEENT: PERRL/EOMI, Moist Mucous Membranes; No Scleral Icterus (L), No Scleral Icterus (R) Neck: Normal Inspection, Supple Respiratory: Lungs Clear, No Accessory Muscle Use, No Respiratory Distress Cardiovascular: Regular Rate, Rhythm, No JVD, No Murmur, Normal Peripheral Pulses Gastrointestinal: Normal Bowel Sounds, Non Tender, Soft Extremity: Normal Capillary Refill, No Calf Tenderness, No Pedal Edema Neurologic/Psychiatric: Alert, Oriented x3, Normal Mood/Affect Skin: Normal Color, Warm/Dry Results Results/Procedures Labs Laboratory Tests 04/09/22 16:05 04/10/22 06:09 Patient resulted labs reviewed. Imaging: Reviewed Imaging Report Imaging [facility], [place] NAME: ALEXANDREA MANN Antonio [facility] REC#: [id number] PT STATUS: REG ER : 1940 PHYSICIAN: PAULA ALEJANDRO MD ADMIT DATE: 04/09/22/ER Signed Date of Exam:04/09/22 CT HEAD/CERVICAL SPINE WO EXAMINATION: CT head and CT cervical spine without contrast. TECHNIQUE: Multiple contiguous axial images were obtained through the brain and cervical spine without the use of intravenous contrast. Sagittal and coronal reformations through the cervical spine were then performed. All CT scans use one or more of the following dose optimizing techniques: automated exposure control, MA and/or KvP adjustment based on patient size and exam type or iterative reconstruction. HISTORY: Head and neck pain after injury. COMPARISON: 12/16/2021. FINDINGS: HEAD: Mild diffuse cerebral volume loss with proportional enlargement of the ventricles and sulci. No abnormal attenuation of brain parenchyma is present. No acute intracranial hemorrhage or abnormal extra-axial fluid collections are present. Calcification of the intracranial ICAs. No hyperdense vessel. The calvarium is intact. The mastoid air cells are clear. The visualized paranasal sinuses are clear. The orbits are normal. C-SPINE: Vertebral body height and alignment are preserved. No acute fracture, dislocation, or destructive osseous process. No significant facet hypertrophy. There is multilevel cervical spondylosis. Surgical changes from C5-C6 spinal fusion. The paraspinous soft tissues are normal. The visualized thyroid gland is normal. The visualized lung apices are normal. IMPRESSION: 1. No acute intracranial abnormality. Mild volume loss. 2. Degenerative changes of the cervical spine without acute osseous abnormality. Dictated by: Dictated on workstation # [id number] Dict: 04/09/22 1644 Trans: 04/09/221718 AS6 [id number] Interpreted by: ANGELICA WALKER DO Electronically signed by: ANGELICA WALKER DO 04/09/221718 [facility], [place] NAME: ALEXANDREA MANN [facility] REC#: [id number] PT STATUS: REG ER : 1940 PHYSICIAN: PAULA ALEJANDRO MD ADMIT DATE: 04/09/22/ER Signed Date of Exam:04/09/22 CT LUMBAR SPINE WO EXAMINATION: CT lumbar spine without contrast. TECHNIQUE: Multiple contiguous axial images were obtained through the lumbar spine without the use of intravenous contrast. Sagittal and coronal reformations were then performed. All CT scans use one or more of the following dose optimizing techniques: Automated exposure control, MA and/or KvP adjustment based on patient size and exam type or iterative reconstruction. HISTORY: Back pain after fall. COMPARISON: 09/27/2021. FINDINGS: Surgical and degenerative changes of the spine. Vertebral body heights and alignment are normal. No acute fracture. There is multilevel facet hypertrophy. Disc height loss at L1-L2. There is multilevel lumbar spondylosis. Limited views of the abdomen and pelvis show no soft tissue abnormality. Vascular calcifications of the aorta. IMPRESSION: 1. Degenerative changes of the lumbar spine without acute osseous abnormality. Dictated by: Dictated on workstation # [id number] Dict: 04/09/22 164 Trans: 04/09/221718 [id number] Interpreted by: ANGELICA WALKER DO Electronically signed by: ANGELICA WALKER DO 04/09/221718 [facility], [place] NAME: ALEXANDREA MANN [facility] REC#: [id number] PT STATUS: REG ER : 1940 PHYSICIAN: PAULA ALEJANDRO MD ADMIT DATE: 04/09/22/ER Signed Date of Exam:04/09/22 CT PELVIS WO PROCEDURE: CT pelvis without contrast. TECHNIQUE: Multiple contiguous axial images were obtained through the pelvis without the use of intravenous contrast. Sagittal and coronal reformations were performed. Auto Exposure Controls were utilized during the CT exam to meet ALARA standards for radiation dose reduction. INDICATION: Fall. Pelvic pain. COMPARISON: 12/16/2021. FINDINGS: No acute fracture or dislocation is seen in the pelvis and bilateral hips. Alignment is anatomic. No suspicious focal osseous lesions are seen. The included pelvis demonstrates no acute abnormalities. A moderate fat-containing left inguinal hernia is seen. IMPRESSION: No acute fracture or dislocation in the pelvis and bilateral hips. Dictated by: Dictated on workstation # [id number] Dict: 04/09/22 165 Trans: 04/09/221656 AS [id number] Interpreted by: JOSTIN MARC DO Electronically signed by: JOSTIN MARC DO 04/09/22 5834 Short Stay Diagnosis Discharge Diagnosis-Short Stay Admission Diagnosis LYRIC Final Discharge Diagnosis LYRIC Conclusion Plan LYRIC Fall Creatinine was 2.01 on admission Now down to 1.5 which is his apparent baseline from November PT to evaluation mobility If ambulating well will plant o DC back to assisted living facility Diagnosis/Problems Diagnosis/Problems (1) Acute kidney injury Status: Acute (2) Fall on same level Status: Acute Qualifiers: Qualified Codes: W18.30XA - Fall on same level, unspecified, initial encounter (3) Generalized weakness Status: Acute KIZZY RUVALCABA MD Apr 10, 2022 11:35
--- NOTE | 2022-04-10 11:41 | Discharge Inst-Simple/Standard ---
Discharge Inst-Standard Patient Instructions/Follow Up Plan of Care/Instructions/FU: Please continue to take your medications as written. Please follow up with your primary care doctor to follow up this hospital stay. Activity as Tolerated: Yes Discharge Diet: No Restrictions Return to The Hospital For: Chest pain, shortness of breath, fever, weakness, if you feel you are getting worse. KIZZY MEEKS MD Apr 10, 2022 11:41
[2022-04-10 11:53] VITALS: BP 174/79
--- NOTE | 2022-04-10 11:57 | Physical Therapy Evaluation ---
PT Evaluation-General Medical Diagnosis Admission Date Apr 09, 2022 at 18:34 Medical Diagnosis: LYRIC/fall/weakness Onset Date: Apr 09, 2022 Therapy Diagnosis Therapy Diagnosis: impaired mobility Precautions Precautions/Isolations: Fall Prevention, Standard Precautions Referral Physician: Peg Reason for Referral: Evaluation/Treatment Medical History Pertinent Medical History: Arthritis, CABG, COPD, HTN, TBI Current History ER secondary to fall Reviewed History: Yes Social History Home: Assisted Living Prior Prior Level of Function SCALE: Activities may be completed with or without assistive devices. 3-Weugrelrun-ebnyyeb completes the activity by him/herself with no assistance from a helper. 5-Set-up or Clean-up Assistance-helper sets up or cleans up; patient completes activity. [place] assists only prior to or following the activity. 4-Supervision or Touching Assistance-helper provides verbal cues and/or touching/steadying and/or contact guard assistance as patient completes activity. Assistance may be provided throughout the activity or intermittently. 3-Partial/Moderate Assistance-helper does LESS THAN HALF the effort. [place] lifts, holds or supports trunk or limbs, but provides less than half the effort. 2-Substantial/Maximal Assistance-helper does MORE THAN HALF the effort. [place] lifts or holds trunk or limbs and provides more than half the effort. 3-Venuarymu-cgxcaw does ALL the effort. Patient does none of the effort to complete the activity. Or, the assistance of 2 or more helpers is required for the patient to complete the activity. If activity was not attempted, code reason: 7-Patient Refused. 9-Not Applicable-not attempted and the patient did not perform the activity before the current illness, exacerbation or injury. 10-Not Attempted due to Environmental Limitations-(lack of equipment, weather restraints, etc.). 88-Not Attempted due to Medical Conditions or Safety Concerns. Bed Mobility: 6 Transfers (B,C,W/C): 6 Gait: 6 Stairs: 9 Indoor Mobility (Ambulation): Independent Prior Devices Use: Walker PT Evaluation-Current Subjective Patient states he hopes to go back home today. Objective Patient Orientation: Person, Time, Situation Attachments: IV ROM/Strength ROM Lower Extremities bilateral LE WFL Strength Lower Extremities 4/5 grossly bilateral LE Integumentary/Posture Bowel Incontinence: No Bladder Incontinence: No Posture slightly kyphotic Neuromuscular (Tone, Coordination, Reflexes) grossly intact Sensory Vision: Functional Hearing: Impaired Transfers Roll Left to Right (QC): 6 Lying to Sitting/Side of Bed(Q: 6 Sit to Stand (QC): 4 Chair/Lpj-jf-Cjuyl Xfer(QC): 4 Gait Mode of Locomotion: Walk Anticipated Mode of Locomotion: Walk Walk 10 feet (QC): 4 Walk 50 ft with 2 Turns(QC): 4 Walk 150 ft (QC): 4 Distance: 225' Gait Assistive Device: FWW Comments/Gait Description SBA for initial assessment/safe and functional gait sequence Balance Sitting Static: Normal Sitting Dynamic: Normal Standing Static: Good Standing Dynamic: Good Assessment/Needs Patient will be seen short term by skilled PT to address functional mobility and strength to ensure safe return to AL at maximum LOF. Rehab Potential: Fair PT Fdc Goals Fdc Goals PT Lead Pourer Goals Time Frame: Apr 19, 2022 Roll Left & Right (QC): 6 Sit to Lying (QC): 6 Lying-Sitting on Side/Bed(QC): 6 Sit to Stand (QC): 6 Chair/Zuo-nf-Qbclz Xfer(QC): 6 Toilet Transfer (QC): 6 Walk 10 feet (QC): 6 Walk 50ft with 2 Turns (QC): 6 Walk 150 ft (QC): 6 PT Plan Problem List Problem List: Activity Tolerance, Functional Strength, Safety, Balance, Gait, Transfer Treatment/Plan Treatment Plan: Continue Plan of Care Treatment Plan: Education, Functional Activity Jesus Alberto, Functional Strength, Gait, Safety, Therapeutic Exercise, Transfers Treatment Duration: Apr 19, 2022 Frequency: 6 times per week Estimated Hrs Per Day: .25 hour per day Patient and/or Family Agrees t: Yes Time/GCodes Time In: 1120 Time Out: 1131 Total Billed Treatment Time: 11 Total Billed Treatment 1 visit EVMod 11 min JOSE CORADO PT Apr 10, 2022 11:56
[2022-04-10 15:39] VITALS: BP 150/84
[2022-04-10] MEDS ORDERED: ROSUVASTATIN 5 MG (CRESTOR) TABLET PO SCH (21:00)
[2022-04-10] MEDS ORDERED: DONEPEZIL 10 MG (ARICEPT) TAB PO SCH (21:00)
[2022-04-10] MEDS ORDERED: TERAZOSIN 5 MG (HYTRIN) CAPSULE PO SCH (21:00)
== END 2022-04-10 15:19 ==
LOC: EDUNIT# 15:30 → ER 15:34 → UNDOADMOB 18:34 → 4TH 18:34 → UNDODISOB 04-10 16:05
PROVIDERS: ADMIT Family Medicine; ATTEND Family Medicine
DX: N17.9 Acute kidney failure, unspecified (principal); R53.1 Weakness; W18.30XA Fall on same level, unspecified, initial encounter; Z87.891 Personal history of nicotine dependence; E86.1 Hypovolemia
CPT/HCPCS: 36415; 70450; 72125; 72131; 72192; 80048; 80053; 81000; 83735; 85025; 87088; 96361; G0378

== ENCOUNTER 2022-04-18 11:43 | Outpatient (RCR) | payer MEDICARE ==
[~2022-04-18] VITALS: Ht 178 cm; Wt 77.0 kg
[~2022-04-18 11:43] MED LIST changes: +CARV25TA PO; +DICL100G13 TP; +DULO30CA49 PO; +ESCI5TAB16 PO; +FAMO20TA3 PO; +GABA300C PO; +MIRA50TA PO; +NAPR-1071 PO; +NITR0.4T39 SL; +PANT40TA52 PO; +RANO500T3 PO; +ROSU10TA28 PO; +[UNRECOGNIZED DRUG - CODE] TP
[2022-04-18] MEDS ORDERED: NS IV 1000 ML 1,000 ML ONE (11:56)
[2022-04-18 12:00] VITALS: BP 129/68
[2022-04-18] MEDS ORDERED: NS IV 1000 ML 1,000 ML IV ONE (12:00)
[2022-04-18 13:10] VITALS: BP 129/68
== END 2022-04-24 | disposition home or self-care (01) ==
LOC: SDC 11:43
PROVIDERS: ATTEND Nurse Practitioner Family
DX: Z01.89 Encounter for other specified special examinations (principal)
CPT/HCPCS: 96360

== ENCOUNTER 2022-05-09 13:09 | Outpatient (CLI) | payer MEDICARE ==
[2022-05-09] MEDS ORDERED: NS IV 1000 ML 1,000 ML ONE (13:28)
[2022-05-09 13:30] VITALS: BP 165/94
[2022-05-09] MEDS ORDERED: NS IV 1000 ML 1,000 ML IV ONE (14:00)
== END 2022-05-09 14:42 | disposition home or self-care (01) ==
LOC: SDC 13:09
PROVIDERS: ATTEND Nurse Practitioner Family
DX: E86.0 Dehydration (principal)
CPT/HCPCS: 96360

== ENCOUNTER → 2022-07-17 | Outpatient (CLI) | payer MEDICARE ==
--- NOTE | 2022-07-17 10:57 | Diagnostic Imaging Report ---
INDICATION: Palpable lump, left breast. CORRELATION is made with diagnostic mammogram earlier same day. Sonographic interrogation of the area of lump upper inner left breast was performed. No sonographic abnormality is seen. No solid or cystic mass is detected. IMPRESSION: BI-RADS Category 1 No sonographic abnormality is detected. ACR BI-RADS Category 1: Negative. Result letter will be mailed to the patient. Note: At least 10% of breast cancer is not imaged by mammography. Dictated by: Dictated on workstation # [id number]
--- NOTE | 2022-07-17 11:11 | Diagnostic Imaging Report ---
Indication: Left breast lump. No prior studies are available for comparison. Unilateral left 2-D and 3-D diagnostic mammography was performed with CAD. BB marker was placed at the area of palpable abnormality in the medial left breast. Scattered fibroglandular densities are noted. No mass or malignant-appearing microcalcifications are seen. There are benign calcifications. Left axilla is unremarkable. IMPRESSION: BI-RADS Category 0 No mammographic features suspicious for malignancy are identified. Even so, directed sonographic interrogation of the area of lump in the medial left breast is recommended and will be performed today. ACR BI-RADS Category 0: Incomplete. (Needs additional imaging evaluation). Result letter will be mailed to the patient. Note: At least 10% of breast cancer is not imaged by mammography. Dictated by: Dictated on workstation # [id number]
== END ==
LOC: RAD 09:15
PROVIDERS: ATTEND Nurse Practitioner Family
DX: N63.20 Unspecified lump in the left breast, unspecified quadrant (principal)
CPT/HCPCS: 76642; 77065; G0279

== ENCOUNTER → 2022-10-13 | Outpatient (CLI) | payer MEDICARE ==
[~2022-10-13] MED LIST changes: +CATHETER FLUSH 10 ML SYR IVP PRN; +CLOP-31 PO; -CLOP75TA69 PO; +REGADENOSON 0.4 MG/5 ML SYR (LEXISCAN) IV ONE
[2022-10-13 09:31] VITALS: BP 200/89
--- NOTE | 2022-10-13 11:07 | Cardiology Stress Test Report ---
Stress Test Report Date of Procedure/Referring: Date of Procedure: Oct 13, 2022 PCP Clinton Hall MD Admitting Physician Admitting Physician: Attending Physician: Luis Angel Cowan MD Baseline Blood Pressure: Blood Pressure Systolic: 200 Blood Pressure Diastolic: 89 Baseline Vitals Vital Signs Date Time Temp Pulse Resp B/P (MAP) Pulse Ox O2 Delivery O2 Flow Rate FiO2 10/13/22 09:31 47 200/89 (126) Baseline EKG: Baseline EKG: NSR Summary After explaining the procedure to the patient, he signed a consent and then brought to the stress nuclear laboratory. Patient received 0.4 mg Lexiscan for stress test, ECG, heart rate and blood pressure were monitored continuously. Resting and stress dose of radio tracer were injected, imaging was acquired and reviewed in short axis, horizontal long axis and vertical long axis views. TID: 0.94 SSS: 11 SDS: 8 EF: 51 1. Patient tolerated Lexiscan well 2. Diaphragmatic attenuation with reversible ischemia involving the inferior wall and inferolateral wall 3. Normal left ventricular size with mild hypokinesia of the inferior wall, ejection fraction 51% Copy Copies To 1: CLINTON HALL MD, BASHAR J MD Oct 13, 2022 11:07
== END ==
LOC: CARD 08:31
PROVIDERS: ATTEND Internal Medicine Cardiovascular Disease
DX: I25.89 Other forms of chronic ischemic heart disease (principal); J98.6 Disorders of diaphragm
CPT/HCPCS: 78452; 93017; A9502

== ENCOUNTER → 2022-10-29 | Day surgery (SDC) | payer MEDICARE ==
[~2022-10-29] VITALS: Ht 170 cm; Wt 84.0 kg
[2022-10-29] VITALS (26 sets, daily range): BP systolic 68–177; BP diastolic 47–90
[~2022-10-29] MED LIST changes: +ASPIRIN E.C. 81 MG (ECOTRIN) TAB PO SCH; -CATHETER FLUSH 10 ML SYR IVP PRN; +CLOPIDOGREL 75 MG (PLAVIX) TABLET PO SCH; +CNC1KV IM; +DULoxetine 30 MG (CYMBALTA) CAP PO SCH; +FAMOTIDINE 20 MG (PEPCID) TABLET PO SCH; +FEN12TD TD; +HEParin (CATH LAB) 2,000 ML IV ONE; +HYDROcodone/APAP 5 MG/325 MG (LORTAB) TAB ONE; +HYDROcodone/APAP 5 MG/325 MG (LORTAB) TAB PO ONE; +HydroCHLOROthiazide CAP/TABLET 12.5 MG TAB PO SCH; +L.AC1CAP6 PO; +LIDOCAINE 1% INJ 30 ML (XYLOCAINE) VIAL ONE; +LOSARTAN 50 MG (COZAAR) TAB PO SCH; +MIDAZOLAM 2 MG/2 ML (VERSED) VIAL IM NR; +MIDAZOLAM 2 MG/2 ML (VERSED) VIAL ONE; +MIDAZOLAM 5 MG/5 ML (VERSED) VIAL ONE; +MIRA25TA PO; +NON-FORMULARY MEDICATION 1 EA EA (Carvedilol 12.5 MG) PO SCH; +NON-FORMULARY MEDICATION 1 EA EA (Losartan/Hydrochlorothiazide (Losartan-Hctz 50-12.5 mg T PO SCH; +NS IV 1000 ML 1,000 ML IV SCH; +NS IV 1000 ML 1,000 ML ONE; +PANTOPRAZOLE 40 MG (PROTONIX) TAB PO SCH; +PATIENT MAY USE OWN MEDS, ALL PO SCH; -REGADENOSON 0.4 MG/5 ML SYR (LEXISCAN) IV ONE; +ROSUVASTATIN 10 MG (CRESTOR) TABLET PO SCH; +[UNRECOGNIZED DRUG - CODE] TP; +fentaNYL INJ 100 MCG/2 ML AMP IVP NR; +fentaNYL INJ 100 MCG/2 ML AMP ONE; +fentaNYL PATCH 12 MCG (DURAGESIC) TD SCH
[2022-10-29 07:39] LABS: HEMATOCRIT 36 % (40-54); HEMOGLOBIN 11.5 g/dL (13.3-17.7); MEAN CORPUSCULAR HEMOGLOBIN 31 pg (25-34); MEAN CORPUSCULAR HGB CONC 32 g/dL (32-36); MEAN CORPUSCULAR VOLUME 95 fL (80-99); MEAN PLATELET VOLUME 9.6 fL (9.0-12.2); PLATELET COUNT 207 10^3/uL (130-400); WHITE BLOOD COUNT 7.3 10^3/uL (4.3-11.0)
--- NOTE | 2022-10-29 07:56 | Diagnostic Imaging Report ---
HISTORY: Abnormal stress test, coronary artery disease and hypertension. COMPARISON: 12/16/2021 TECHNIQUE: Frontal view of the chest FINDINGS: Lung volumes are normal. No consolidation is seen. There is no pleural effusion or pneumothorax. The cardiac silhouette is mildly large, but stable in size. Sternotomy wires and post-CABG changes are seen. IMPRESSION: 1. No acute pulmonary abnormalities seen. Dictated by: Dictated on workstation # [id number]
[2022-10-29 07:58] LABS: PROTHROMBIN TIME PATIENT 13.8 SEC (12.2-14.7)
[2022-10-29 08:06] LABS: ALBUMIN 4.1 GM/DL (3.2-4.5); BILIRUBIN,TOTAL 0.5 MG/DL (0.1-1.0); CREATININE SERUM 1.6 MG/DL (0.60-1.30); POTASSIUM 3.8 MMOL/L (3.6-5.0); TOTAL PROTEIN 6.6 GM/DL (6.4-8.2)
--- NOTE | 2022-10-29 10:08 | Cardiac Procedure Note-CS/ASA ---
Pre-Procedure Note Pre-Op Procedure Note Date of Available H&P: Oct 13, 2022 Date H&P Reviewed: Oct 29, 2022 Time H&P Reviewed: 10:08 History & Physical: H&P Reviewed, Patient Examed, No changes noted Pre-Operative Diagnosis: Coronary artery disease Conscious Sedation Pre-Proced Time 10:08 ASA Score 3 For ASA 3 and 4: Consider anesthesia and medical clearance. Also, for patients with a history of failed moderate sedation consider anesthesia. Airway Lungs Heart ASA score ASA 1: a normal healthy patient ASA 2: a patient with a mild systemic disease (mid diabetes, controlled hypertension, obesity ASA 3: a patient with a severe systemic disease that limits activity (angina, COPD, prior Myocardial infarction) ASA 4: a patient with an incapacitating disease that is a constant threat to life (CHF, renal failure) ASA 5: a moribund patient not expected to survive 24 hrs. (ruptured aneurysm) ASA 6: a declared brain- patient whose organs are being harvested. For emergent operations, add the letter E after the classification Mallampati Classification Grade 3 Sedation Plan Analgesia, Amnesia, Plan communicated to team members, Discussed options with patient/fam, Discussed risks with patient/fam The patient is an appropriate candidate to undergo the planned procedure, sedation, and anesthesia. The patient immediately re-assessed prior to indication. CHRISTIANO DAVIS MD Oct 29, 2022 10:08
--- NOTE | 2022-10-29 10:58 | Discharge Inst-Post CATH ---
Discharge Inst-CATH/EP Problems Reviewed?: Yes Post Cardiac Cath/EP D/C Inst Follow Up/Plan Appointment with Dr. Cowan's office in 2 to 4 weeks <b>CARDIAC CATH/EP PROCEDURE DISCHARGE INSTRUCTIONS</b> ACTIVITY * Go Home directly and rest. * Limit activity of the leg (or wrist if it was used) for 7 days including aer obics, swimming, jogging, bicycling, etc. * Restrict stair-climbing for 7 days if possible, if not, climb up with your non-cath leg, then bring together on the same step. * Avoid lifting, pushing, pulling or excessive movement of the affected extremi ty for 7 days. * Customary sexual activity may be resumed after 2 days-use caution not to use a position that strains or causes pain to the affected extremity. * No driving for 24 hours. * NO SMOKING. * Avoid straining for bowel movements for 7 days. * Gentle walking on level ground is allowed. * Returning to work will depend on the type of procedure and the results. Your doctor will discuss this with you. CALL YOUR DOCTOR FOR ANY OF THE FOLLOWING: *If bleeding from the puncture site occurs- Apply gentle pressure to site with clean cloth and call your doctor or EMS. * If a knot or lump forms under the skin, increases in size, or causes pain. * If bruising appears to be worsening or moving further down your leg instead of disappearing. * Temperature above 101 F. CARE OF YOUR GROIN INCISION; * Bruising or purple discoloration of the skin near the puncture site is common. * You may shower only, no bathtub bathing for 5 days. Be careful to avoid slipping as your leg may feel stiff. * If a closure device was used on your femoral artery, please see the attached guide regarding care of the device and your leg. * Leave dressing on FOR 24 hours. CARE OF YOUR WRIST INCISION; * Bruising or purple discoloration of the skin near the puncture site is common. * You may shower. * DO NOT submerge wrist. * Leave dressing on FOR 24 hours. CHRISTIANO COWAN MD Oct 29, 2022 10:58
--- NOTE | 2022-10-29 11:04 | Cardiac Cath Report ---
Cardiac Cath Report Physician (s)/Traffic Rate Computer (s) Physician CHRISTIANO DAVIS MD Pre-Procedure Diagnosis Pre-Procedure Diagnosis: Coronary artery disease Post-Procedure Note Procedure Start Date: Oct 29, 2022 Name of Procedure: Left heart catheterization Vein graft angiogram GRACE angiogram Aortic root angiogram Findings/Procedure Note PROCEDURE NOTE: 82 years old gentleman with history of coronary artery disease, CABG, multiple interventions in the past. Multiple stenting, had an abnormal stress test scheduled for cardiac catheterization possible PTCA. After explaining the procedure to the patient, all pros and cons were explained, all questions were answered. The patient signed the consent and then he was placed in the cardiac catheterization laboratory. Groin was prepped in SL fashion local anesthesia was used. Sheath placed in the right femoral artery, Daisy left was used to engage the left coronary system, angiogram was done, I was unable to engage the right coronary system using multiple different catheters without success. Daisy right catheter was used to engage the GRACE and angiogram was done and after modifying the shape of the catheter I was able to engage to vein graft and angiogram was done. Pigtail catheter was advanced, did not cross the aortic valve, aortic root angiogram was done. At the end of the procedure the sheath was removed. Closure device was deployed FINDINGS: Hemodynamics LV did not cross the aortic valve Aorta 151/59 mean of 92 ANATOMY: Left Main is free of obstructive disease Left Anterior Descending is occluded proximally, the GRACE to the LAD is patent, vein graft to the diagonal artery is patent. Left Circumflex has severe stenosis at the ostium/proximal portion, was unable to identify any vein graft to the circumflex system Right Coronary Artery is heavily calcified, occluded, was unable to identify any vein graft to the right coronary artery Aortic root angiogram was done, normal aortic root, no dissection or aneurysm, calcified aortic valve. CONCLUSION: 1. Total occlusion at the proximal LAD with patent GRACE to LAD and vein graft to the diagonal artery. 2. Severe stenosis at the ostial/proximal circumflex artery and unable to identify any patent graft to the circumflex system 3. Occluded right coronary artery with no identifiable graft to the right coronary system DISCUSSION AND RECOMMENDATION: We will continue maximizing medical therapy and arrange for referral to a tertiary center for evaluation and possible intervention on the circumflex artery Anesthesia Type: Conscious Sedation Estimated blood loss (mL): 20 ml Contrast Amount: 48 ml Total Radiation Dose: 348 mGy Post-Procedure Diagnosis Post-operative diagnosis: Chest pain Coronary artery disease Hypertension Hyperlipidemia CHRISTIANO DAVIS MD Oct 29, 2022 11:04
[2022-10-29] MEDS: NS IV 1000 ML 1,000 ML IV SCH ×2 (13:37→21:00)
[2022-10-29] MEDS: HYDROcodone/APAP 5 MG/325 MG (LORTAB) TAB PO PRN (18:46)
[2022-10-29 20:55] LABS: HEMATOCRIT 34 % (40-54); HEMOGLOBIN 11.3 g/dL (13.3-17.7); MEAN CORPUSCULAR HEMOGLOBIN 30 pg (25-34); MEAN CORPUSCULAR HGB CONC 33 g/dL (32-36); MEAN CORPUSCULAR VOLUME 91 fL (80-99); MEAN PLATELET VOLUME 9.4 fL (9.0-12.2); PLATELET COUNT 165 10^3/uL (130-400); WHITE BLOOD COUNT 12.2 10^3/uL (4.3-11.0)
[2022-10-29] MEDS: GABAPENTIN 300 MG (NEURONTIN) CAP PO SCH (20:59)
[2022-10-29] MEDS: RANOLAZINE ER 500 MG TAB (RANEXA) PO SCH (20:59)
[2022-10-29] MEDS: ROSUVASTATIN 5 MG (CRESTOR) TABLET PO SCH (20:59)
[2022-10-29] MEDS: DONEPEZIL 10 MG (ARICEPT) TAB PO SCH (20:59)
[2022-10-29] MEDS: HYDROcodone/APAP 5 MG/325 MG (LORTAB) TAB PO SCH (20:59)
[2022-10-30] MEDS: HYDROcodone/APAP 5 MG/325 MG (LORTAB) TAB PO PRN (04:46)
[2022-10-30 05:09] LABS: HEMATOCRIT 31 % (40-54); HEMOGLOBIN 10.2 g/dL (13.3-17.7); MEAN CORPUSCULAR HEMOGLOBIN 30 pg (25-34); MEAN CORPUSCULAR HGB CONC 33 g/dL (32-36); MEAN CORPUSCULAR VOLUME 91 fL (80-99); MEAN PLATELET VOLUME 9.7 fL (9.0-12.2); PLATELET COUNT 159 10^3/uL (130-400)
[2022-10-30] MEDS: NS IV 1000 ML 1,000 ML IV SCH (07:45)
[2022-10-30] MEDS: RANOLAZINE ER 500 MG TAB (RANEXA) PO SCH ×2 (08:29→20:48)
[2022-10-30] MEDS: HYDROcodone/APAP 5 MG/325 MG (LORTAB) TAB PO SCH ×3 (08:30→20:49)
[2022-10-30] MEDS: GABAPENTIN 300 MG (NEURONTIN) CAP PO SCH ×2 (08:30→20:48)
--- NOTE | 2022-10-30 08:33 | Diagnostic Imaging Report ---
PROCEDURE: CT abdomen and pelvis without contrast. TECHNIQUE: Multiple contiguous axial images were obtained through the abdomen and pelvis without the use of intravenous contrast. Auto Exposure Controls were utilized during the CT exam to meet ALARA standards for radiation dose reduction. INDICATION: Right groin hematoma. Patient is status post heart catheterization. COMPARISON: No prior studies are available for comparison. FINDINGS: The lung bases are clear. There is a moderate-sized hiatal hernia. Small low-attenuation lesion right lobe of the liver is noted, too small to characterize but perhaps a cyst. The gallbladder is surgically absent. No biliary ductal dilatation is seen. The pancreas and spleen are unremarkable. No adrenal mass is identified. The kidneys are unremarkable. There is a small amount of contrast within both renal collecting systems from prior contrast administration. Aorta is ectatic and calcified but nonaneurysmal. The iliac vessels are heavily calcified. Bowel loops are nonobstructed. Bladder is decompressed by a Ramos catheter. Prostate is unremarkable. There is no free fluid. There are fat-containing inguinal hernias bilaterally, the largest on the left. There is a large amount of edema in the subcutaneous tissues of the right lower extremity. There is partially visualized hyperdense fluid collection in the upper medial right thigh measuring 8.0 x 1.7 cm suggestive of a hematoma. No other abnormalities are seen. IMPRESSION: 1. Significant subcutaneous edema of the right thigh with a hyperdense fluid collection in the upper medial soft tissues consistent with hematoma. This could be better evaluated with ultrasound to evaluate for pseudoaneurysm or AV fistula. No other significant abnormality is detected. Dictated by: Dictated on workstation # [id number]
--- NOTE | 2022-10-30 08:37 | Diagnostic Imaging Report ---
INDICATION: Right groin hematoma, status post heart catheterization. Grayscale, color flow, and duplex Doppler evaluation of the right groin was performed. Right common femoral artery and vein are patent. No pseudoaneurysm or AV fistula was detected. There is some edema in the soft tissues. No discrete fluid collection was visualized. IMPRESSION: No evidence of pseudoaneurysm or AV fistula. Dictated by: Dictated on workstation # [id number]
--- NOTE | 2022-10-30 10:43 | Cardiology Progress Note ---
Subjective Date Seen by Provider: Oct 30, 2022 Time Seen by Provider: 10:40 Subjective/Events-last exam Patient has a large groin bleed post diagnostic catheterization. Currently better Had another bleed overnight and FemoStop was removed around 9 AM. Review of Systems General: No Chills, No Night Sweats, No Fatigue, No Malaise, No Appetite, No Other HEENT: No Head Aches, No Visual Changes, No Eye Pain, No Ear Pain, No Dysphasia, No Sinus Congestion, No Post Nasal Drip, No Sore Throat, No Other Pulmonary: No Dyspnea, No Cough, No Pleuritic Chest Pain, No Other Cardiovascular: No: Chest Pain, Palpitations, Orthopnea, Paroxysmal Noc. Dyspnea, Edema, Lt Headedness, Other Objective-Cardiology Exam Last Set of Vital Signs Vital Signs 10/30/22 10/30/22 08:00 10:00 Temp 37.2 Pulse 61 Resp 19 B/P (MAP) 121/70 (87) Pulse Ox 92 O2 Delivery Nasal Cannula O2 Flow Rate 2.00 I&O Intake and Output 10/30/22 00:00 Intake Total 390 ml Output Total 300 ml Balance 90 ml Intake Oral 390 ml Output Urine Total 300 ml # Voids 1 General: Alert, Oriented X3, Cooperative HEENT: Atraumatic, PERRLA Neck: Supple, No JVD, No Thyromegaly Lungs: Clear to Auscultation, Normal Air Movement Heart: Regular Rate, Normal S1, Normal S2, No Murmurs Abdomen: Normal Bowel Sounds, Soft, No Tenderness, No Hepatosplenomegaly, No Masses Extremities: No Clubbing, No Cyanosis, No Edema, Normal Pulses, No Tenderness/Swelling Skin: No Rashes, No Breakdown, No Significant Lesion Neuro: Normal Gait, Normal Speech, Strength at 5/5 X4 Ext, Normal Tone, Sensation Intact Psych/Mental Status: Mental Status NL, Mood NL Results Lab Laboratory Tests 10/29/22 20:45 10/30/22 04:58 A/P-Cardiology Admission Diagnosis Coronary artery disease Hypertension Hyperlipidemia Chronic renal insufficiency Assessment/Plan Coronary artery disease, history of CABG Cardiac catheterization was carried out on October 30, 2022. Had total occlusion at the proximal LAD with patent GRACE to the LAD and vein graft to the diagonal artery, severe stenosis at the ostial/proximal circumflex artery and unable to identify any graft to the circumflex, occluded right coronary artery with no identifiable bypass to the right coronary artery I discussed and reviewed the case with Dr. Briceño. Patient will be scheduled for left main stenting extending to the circumflex system. It will be scheduled as an outpatient Hypertension, restart home medication monitor blood pressure Hyperlipidemia, monitor lipids Chronic renal insufficiency, monitor renal function Large right groin hematoma, manual pressure applied and FemoStop applied. Overnight he bled again from the groin. FemoStop was removed this morning we will watch him for 6 hours then planning for discharge later today. Status posttransfusion of 2 units packed RBCs, still having anemia. Continue to monitor H&H CHRISTIANO DAVIS MD Oct 30, 2022 10:43
--- NOTE | 2022-10-30 12:31 | Tele-ICU Progress Note ---
Subjective Date Seen by a Provider: Oct 30, 2022 Time Seen by a Provider: 12:30 Subjective/Events-last exam (Tele-ICU Physician , consultation) Available chart/ vitals / labs / Images reviewed H&P is from ER notes Patient's information available about PMH, allergy reviewed in EMR. ROS as per chart and RN report Video assessment done using teleICU camera, rest of exam as per RN Discussed with RN. He is a 82-year-old gentleman with past medical history of coronary artery disease status post coronary artery bypass graft surgery with multiple intervention apparently had stress test as an outpatient which showed abnormalities. Hence he was admitted electively for cardiac catheterization and possible PTCA. Patient underwent the procedure and he was unable to identify any vein graft to the right coronary artery and the left circumflex coronary artery. Apparently postprocedure he had a quite a bit of bleeding at the femoral puncture site hence he is admitted to the ICU. He is given 2 units of packed red blood cells and a FemoStop was placed. This a.m. the FemoStop was removed and the area per [employer] showed severe ecchymosis but no hematoma. His hemoglobin improved to 10.2. Impression #1 1. Coronary artery disease status post coronary angiogram 2. Post procedure bleeding requiring blood transfusion Recommendations. 1. Continue monitor his blood pressure and hemoglobin. 2. As per as the coronary artery disease is concerned apparently he will be referred to a tertiary care center. Further evaluation and management per cardiology. Sepsis Event Evaluation Height, Weight, BMI Height: '" Weight: lbs. oz. kg; 28.44 BMI Method: Exam Exam Patient acknowledged, consented, and participated in this virtual visit which was conducted using real time audio/video Vital Signs Date Time Temp Pulse Resp B/P (MAP) Pulse Ox O2 Delivery O2 Flow Rate FiO2 10/30/22 12:00 56 15 120/60 (80) 100 Nasal Cannula 2.00 10/30/22 11:55 37.3 10/30/22 11:49 95 Room Air 10/30/22 11:00 54 15 141/97 (112) 98 Nasal Cannula 2.00 10/30/22 10:00 61 19 121/70 (87) 92 Nasal Cannula 2.00 10/30/22 09:00 65 22 100/67 (78) 100 Nasal Cannula 2.00 10/30/22 08:00 66 18 161/71 (101) 100 Nasal Cannula 2.00 10/30/22 08:00 37.2 10/30/22 07:30 95 Room Air 10/30/22 07:00 70 10/30/22 07:00 71 16 141/68 (92) 99 Nasal Cannula 2.00 10/30/22 06:13 Nasal Cannula 2.00 10/30/22 06:00 72 20 112/73 (86) 100 Nasal Cannula 2.00 10/30/22 05:00 68 14 128/89 (102) 95 Nasal Cannula 2.00 10/30/22 04:00 99 Room Air 10/30/22 04:00 71 16 117/92 (100) 98 Nasal Cannula 2.00 10/30/22 04:00 37.4 10/30/22 03:00 72 17 109/74 (86) Nasal Cannula 2.00 10/30/22 02:00 78 9 146/78 (100) 100 Nasal Cannula 2.00 10/30/22 01:00 77 32 106/62 (77) 93 Nasal Cannula 2.00 10/30/22 01:00 77 10/30/22 00:00 37.2 10/30/22 00:00 81 28 89/62 (71) 96 Nasal Cannula 2.00 10/30/22 00:00 95 Room Air 10/29/22 23:00 81 9 128/70 (89) 95 Nasal Cannula 2.00 10/29/22 22:00 83 14 90/76 (81) 94 Nasal Cannula 2.00 10/29/22 21:08 77 9 110/73 (85) 97 Nasal Cannula 2.00 10/29/22 20:28 37.2 81 12 103/69 99 Room Air 10/29/22 20:00 80 9 116/74 (88) 88 Nasal Cannula 2.00 10/29/22 20:00 96 Room Air 10/29/22 19:44 37.1 10/29/22 19:00 81 10/29/22 19:00 81 15 132/76 (94) 100 Nasal Cannula 2.00 10/29/22 18:03 36.6 70 115/73 10/29/22 17:47 36.8 73 129/72 10/29/22 17:00 67 9 137/78 (97) 99 Room Air 10/29/22 16:55 36.5 71 125/79 10/29/22 16:00 70 9 114/73 (87) 100 Room Air 10/29/22 15:39 35.9 10/29/22 15:30 70 22 111/70 (84) 94 Room Air 10/29/22 15:00 65 14 97/68 (78) 97 Room Air 10/29/22 14:48 36.1 70 95/63 10/29/22 14:33 36.4 65 96/71 10/29/22 14:30 72 19 111/72 (85) 94 Room Air 10/29/22 14:15 63 21 101/85 (90) 94 Room Air 10/29/22 14:00 66 21 111/78 (89) 92 Room Air 10/29/22 13:49 62 10/29/22 13:45 57 14 100/65 (77) 100 Room Air 10/29/22 13:30 52 15 142/82 (102) 100 Room Air 10/29/22 13:15 60 16 142/82 (102) 100 Room Air 10/29/22 13:10 Room Air 10/29/22 12:54 57 18 139/79 (99) 99 Room Air 10/29/22 12:50 55 18 129/68 (88) 94 Room Air 10/29/22 12:45 51 18 136/65 (88) 94 Room Air 10/29/22 12:40 60 18 114/64 (81) 94 Room Air I & O 10/30/22 07:00 Intake Total 390 ml Output Total 550 ml Balance -160 ml Height & Weight Height: '" Weight: lbs. oz. kg; 28.44 BMI Method: General Appearance: Anxious Capillary Refill: Less Than 3 Seconds Results Lab Laboratory Tests 10/29/22 07:30 10/29/22 20:45 10/30/22 04:58 Assessment/Plan Assessment/Plan as above Critical Care: Critically Ill Patient Time spent with patient (mins): 15 LOLITA ANDINO MD Oct 30, 2022 12:31
[2022-10-30] MEDS: ROSUVASTATIN 5 MG (CRESTOR) TABLET PO SCH (20:48)
[2022-10-30] MEDS: DONEPEZIL 10 MG (ARICEPT) TAB PO SCH (20:49)
== END | disposition home or self-care (01) ==
LOC: CATH 07:00 → SDC 11:23 → ICU 13:13
PROVIDERS: ATTEND Internal Medicine Cardiovascular Disease
DX: I25.10 Atherosclerotic heart disease of native coronary artery without angina pectoris (principal); I25.82 Chronic total occlusion of coronary artery; E78.5 Hyperlipidemia, unspecified; I12.9 Hypertensive chronic kidney disease with stage 1 through stage 4 chronic kidney disease, or unspecified chronic kidney disease; N18.9 Chronic kidney disease, unspecified; M79.81 Nontraumatic hematoma of soft tissue; Z95.5 Presence of coronary angioplasty implant and graft; Z28.310 Unvaccinated for COVID-19
CPT/HCPCS: 71045; 80053; 85027; 85610; 85730; 86850; 86900; 86901; 86920; 87081; 93005; 93455; 93567; C1760; C1887; C1894; P9016; 36415; 74176; 93926

== ENCOUNTER → 2022-11-10 | Outpatient (CLI) | payer MEDICARE ==
[~2022-11-10] MED LIST changes: -ASPIRIN E.C. 81 MG (ECOTRIN) TAB PO SCH; -CLOPIDOGREL 75 MG (PLAVIX) TABLET PO SCH; -DULoxetine 30 MG (CYMBALTA) CAP PO SCH; -FAMOTIDINE 20 MG (PEPCID) TABLET PO SCH; -HEParin (CATH LAB) 2,000 ML IV ONE; -HYDROcodone/APAP 5 MG/325 MG (LORTAB) TAB ONE; -HYDROcodone/APAP 5 MG/325 MG (LORTAB) TAB PO ONE; -HydroCHLOROthiazide CAP/TABLET 12.5 MG TAB PO SCH; -LIDOCAINE 1% INJ 30 ML (XYLOCAINE) VIAL ONE; -LOSARTAN 50 MG (COZAAR) TAB PO SCH; -MIDAZOLAM 2 MG/2 ML (VERSED) VIAL IM NR; -MIDAZOLAM 2 MG/2 ML (VERSED) VIAL ONE; -MIDAZOLAM 5 MG/5 ML (VERSED) VIAL ONE; -NON-FORMULARY MEDICATION 1 EA EA (Carvedilol 12.5 MG) PO SCH; -NON-FORMULARY MEDICATION 1 EA EA (Losartan/Hydrochlorothiazide (Losartan-Hctz 50-12.5 mg T PO SCH; -NS IV 1000 ML 1,000 ML IV SCH; -NS IV 1000 ML 1,000 ML ONE; -PANTOPRAZOLE 40 MG (PROTONIX) TAB PO SCH; -PATIENT MAY USE OWN MEDS, ALL PO SCH; -ROSUVASTATIN 10 MG (CRESTOR) TABLET PO SCH; -fentaNYL INJ 100 MCG/2 ML AMP IVP NR; -fentaNYL INJ 100 MCG/2 ML AMP ONE; -fentaNYL PATCH 12 MCG (DURAGESIC) TD SCH
--- NOTE | 2022-11-10 16:05 | Diagnostic Imaging Report ---
PROCEDURE: US right lower extremity venous. TECHNIQUE: Multiple real-time grayscale images were obtained over the right lower extremity in various projections. Additional spectral analysis and color Doppler duplex images were also obtained. INDICATION: Right leg swelling and pain. FINDINGS: Continuous venous flow is present. No intraluminal filling defect is identified. There is normal compressibility and response to augmentation. No abnormal perivascular fluid collection is identified. Possible cystic structure is noted in the right inguinal region with wall thickening and probable internal debris. IMPRESSION: 1. Collection of fluid in the right groin could represent hematoma or seroma. Abscess is not excluded. 2. No ultrasound evidence of right lower extremity deep venous thrombosis. Dictated by: Dictated on workstation # [id number]
[2022-11-10 16:08] LABS: HEMATOCRIT 29 % (40-54); HEMOGLOBIN 9.2 g/dL (13.3-17.7); MEAN CORPUSCULAR HEMOGLOBIN 31 pg (25-34); MEAN CORPUSCULAR HGB CONC 32 g/dL (32-36); MEAN CORPUSCULAR VOLUME 97 fL (80-99); MEAN PLATELET VOLUME 8.7 fL (9.0-12.2); PLATELET COUNT 307 10^3/uL (130-400); WHITE BLOOD COUNT 6.2 10^3/uL (4.3-11.0)
[2022-11-10 16:15] LABS: BILIRUBIN,URINE NEGATIVE (NEGATIVE); CLARITY,URINE CLEAR; COLOR,URINE ORANGE; GLUCOSE, URINE (UA) NEGATIVE (NEGATIVE); KETONES,URINE NEGATIVE (NEGATIVE); LEUKOCYTE ESTERASE ,URINE NEGATIVE (NEGATIVE); NITRITE,URINE NEGATIVE (NEGATIVE); PH,URINE 6.5 (5-9); PROTEIN,URINE TRACE (NEGATIVE)
[2022-11-10 16:32] LABS: ALBUMIN 3.9 GM/DL (3.2-4.5); CALCIUM 8.9 MG/DL (8.5-10.1); CREATININE SERUM 1.65 MG/DL (0.60-1.30); POTASSIUM 4.3 MMOL/L (3.6-5.0); TOTAL PROTEIN 6.8 GM/DL (6.4-8.2)
[2022-11-10 16:33] LABS: WBC,URINE 0-2 /HPF
[2022-11-10 16:34] LABS: BACTERIA,URINE FEW /HPF
== END ==
LOC: RAD 15:30
PROVIDERS: ATTEND Nurse Practitioner Family
DX: M79.604 Pain in right leg (principal); R35.0 Frequency of micturition; M79.89 Other specified soft tissue disorders
CPT/HCPCS: 36415; 80053; 81000; 85027; 87088